=== PATIENT | male | born 1985 | race African-American/Black ===

== ENCOUNTER 2016-06-21 06:21 | Emergency (ER) | payer OTHER ==
[2016-06-21 07:05] VITALS: BP 120/75; PULSE 71; TEMP 98.1; BMI 26.3
[2016-06-21] MEDS ORDERED: DIPHTH,PERTUSS(ACELL),TET VAC 0.5 ML VIAL IM ONE (07:20)
--- NOTE | 2016-06-21 07:51 | PDOC ---
History of Present Illness - General Chief Complaint: Eye Problem Stated Complaint: EYE INJURY Time Seen by Provider: 06/21/16 07:08 History Source: Patient Exam Limitations: No Limitations - History of Present Illness Initial Comments: 06/21/16 07:48 31y M presenting with facial wound. The patient opened the medicine cabinet while he was leaning forward and the corner caught him in the L face under hte L eye just prior to presentation. no vision changes, eye pain. pt also notes a superficial wound on his right palm that got caught on a sharp end of a towel bar when he reached out after being strcuk by the medicine cabinet. unknown lsat tetanus Past History - Past Medical History Allergies/Adverse Reactions: Allergies Allergy/AdvReac Type Severity Reaction Status Date / Time No Known Allergies Allergy Verified 06/21/16 07:05 Home Medications: Ambulatory Orders NK [No Known Home Medication] 01/22/15 Other medical history: Denies - Immunization History Immunization Up to Date: No - Psycho/Social/Smoking Cessation Hx Suicidal Ideation: No Smoking History: Current some day smoker Have you smoked in the past 12 months: No Number of Cigarettes Smoked Daily: 1 Information on smoking cessation initiated: No Hx Alcohol Use: No Drug/Substance Use Hx: No Substance Use Type: None Review of Systems - Review of Systems Able to Perform ROS?: Yes Comments:: 06/21/16 07:50 Constitutional - no reported Fever, Chills, weakness, skin - +laceratoin no reported bruising, erythema, rash *Physical Exam - Vital Signs Last Vital Signs Temp Pulse Resp BP Pulse Ox 98.1 F 71 16 120/75 97 06/21/16 07:01 06/21/16 07:01 06/21/16 07:01 06/21/16 07:01 06/21/16 07:01 - Physical Exam Comments: 06/21/16 07:50 GENERAL: The patient is awake, alert, and fully oriented, Nontoxic - in no acute distress. HEAD: Normocephalic, atraumatic. EYES: extraocular movements intact, sclera anicteric, conjunctiva clear. normal vision SKIN: +1cm laceration under his L eye, non gaping, no active bleeding Exttremity: 2cm curvilinear superficial abrasion on his R palm, no active bleeding, n/v intact Procedures - Consent Consent obtained: Verbal - Laceration/Wound Repair Left Face Wound Length: to 2.5 cm Wound Explored: clean Wound's Depth, Shape: superficial Wound Repaired With: Dermabond Right Volar Hand Wound Length: to 2.5 cm Wound Explored: clean Wound's Depth, Shape: superficial Irrigated w/ Saline: Yes Wound Repaired With: Dermabond ED Treatment Course - Medications Given in the ED: ED Medications Discontinued Medications Generic Name Dose Route Start Last Admin Trade Name Tatyana PRN Reason Stop Dose Admin Diphtheria/Tetanus/Acell Pertussis 0.5 ml 06/21/16 07:20 06/21/16 07:40 Adacel Adolescent/Adult - IM 06/21/16 07:21 0.5 ml .ONCE ONE Administration *DC/Admit/Observation/Transfer Diagnosis at time of Disposition: Laceration of face Qualifiers: Encounter type: initial encounter Qualified Code(s): S01.81XA - Laceration without foreign body of other part of head, initial encounter - Discharge Dispostion Disposition: HOME Condition at time of disposition: Improved Admit: No - Referrals Referrals: [facility] [Provider Group] - Patient Instructions Printed Discharge Instructions: DI for Minor Laceration Additional Instructions: Return to the emergency department immediately with ANY new, persistent or worsening symptoms including any redness, bleeding, purulent discharge, swelling or other concerns. You may clean gently with soap and water. Keep the area away from the sun for the next 9 months, please use sunscreen and wear a hat if you need to be in the sun to improve appearance of the scar. You MUST call and follow up with your doctor tomorrow for further evaluation of your symptoms. Results were discussed with you. Please make sure your doctor reviews the results of your emergency evaluation. Print Language: PERSIAN
== END 2016-06-21 07:57 | disposition home or self-care (01) ==
LOC: JER 06:21 → SUPCPDRO 06:21 → JER 07:57
PROC: 0HQ1XZZ Repair Face Skin, External Approach (ICD-10-PCS; principal; 2016-06-21)
PROC: 0HQFXZZ Repair Right Hand Skin, External Approach (ICD-10-PCS; 2016-06-21)
PROC: 3E0234Z Introduction of Serum, Toxoid and Vaccine into Muscle, Percutaneous Approach (ICD-10-PCS; 2016-06-21)
DX: S01.81XA Laceration without foreign body of other part of head, initial encounter (principal); S61.411A Laceration without foreign body of right hand, initial encounter; W22.03XA Walked into furniture, initial encounter; Y93.9 Activity, unspecified; Y92.009 Unspecified place in unspecified non-institutional (private) residence as the place of occurrence of the external cause
CPT/HCPCS: 12001-25; 12011-25; 90471; 99282-25

== ENCOUNTER 2016-10-24 08:35 | Emergency (ER) | payer SELFPAY ==
[2016-10-24 08:48] VITALS: BP 144/93; PULSE 117; TEMP 97.7; BMI 27.2
--- NOTE | 2016-10-24 09:02 | PDOC ---
History of Present Illness - General Chief Complaint: Penile Drainage Stated Complaint: GENITAL DISCOMFORT Time Seen by Provider: 10/24/16 09:01 History Source: Patient Exam Limitations: No Limitations - History of Present Illness Initial Comments: 10/24/16 09:26 My Chief complaint: White discharge penile 3 days tinging sensation History of present illness: Patient is a 31-year-old male with no significant medical history here today complaining of white penile discharge 3 days with a stinging sensation at penis. Patient reports having unprotected sex twice in the last month with 2 different individuals and also had sex with 2 other individuals using condoms. Patient denies any testicular pain. Patient denies having any lesions on his penis. Patient is circumcised. 10/24/16 09:31 Timing/Duration: intermittent Severity: mild Associated Symptoms: reports: other (white discharge penis for 3 days with stinging sensation) Past History - Past Medical History Allergies/Adverse Reactions: Allergies Allergy/AdvReac Type Severity Reaction Status Date / Time No Known Allergies Allergy Verified 10/24/16 08:48 Home Medications: Ambulatory Orders Nitrofurantoin Monohyd/M-Cryst [Macrobid -] 100 mg PO BID #14 capsule 10/24/16 Other medical history: NONE - Immunization History Immunization Up to Date: No - Psycho/Social/Smoking Cessation Hx Anxiety: No Suicidal Ideation: No Smoking History: Never smoked Have you smoked in the past 12 months: No Number of Cigarettes Smoked Daily: 1 Hx Alcohol Use: Yes (SOCIAL) Drug/Substance Use Hx: No Substance Use Type: Marijuana Review of Systems - Review of Systems Able to Perform ROS?: Yes Constitutional: No: Symptoms Reported HEENTM: No: Symptoms Reported Respiratory: No: Symptoms reported Cardiac (ROS): No: Symptoms Reported ABD/GI: No: Symptoms Reported : Yes: Discharge (white ), Pain (stinging sensation penis ) Musculoskeletal: No: Symptoms Reported Integumentary: No: Symptoms Reported Neurological: No: Symptoms reported *Physical Exam - Vital Signs Last Vital Signs Temp Pulse Resp BP Pulse Ox 97.7 F 117 H 20 144/93 98 10/24/16 08:45 10/24/16 08:45 10/24/16 08:45 10/24/16 08:45 10/24/16 08:45 - Physical Exam General Appearance: Yes: Appropriately Dressed Respiratory/Chest: positive: Lungs Clear, Normal Breath Sounds Cardiovascular: positive: Regular Rhythm, Regular Rate, S1, S2 Male Genitalia: positive: normal genitalia, other (circumcised ). negative: discharge (not noted ), testicular tenderness, testicular mass, epididymus tender, inguinal hernia, hernia Integumentary: positive: Normal Color Medical Decision Making - Medical Decision Making 10/24/16 09:28 Patient is a 31-year-old male with no significant medical history here today complaining of white penile discharge 3 days with a stinging sensation at penis. Patient reports having unprotected sex twice in the last month with 2 different individuals and also had sex with 2 other individuals using condoms. Patient denies any testicular pain. Patient denies having any lesions on his penis. Patient is circumcised. Unprotected sex white penile discharge with stinging sensation R/O STD UTI PLAN: urinalysis chlamydia/ GC amplification HIV 1 & 2 oraquick 4 th generation urine C & S Rocephin 250 mg IM now azithromycin 1 GM now 10/24/16 09:31 10/24/16 10:18 Laboratory Tests 10/24/16 09:04 Urine Color Ltyellow Urine Appearance Clear Urine pH 5.0 Urine Protein Negative Urine Glucose (UA) Negative Urine Ketones Negative Urine Blood 1+ H Urine Nitrite Negative Urine Bilirubin Negative Urine Urobilinogen Negative Ur Leukocyte Esterase 2+ H 10/24/16 10:37 Laboratory Tests Laboratory Tests 10/24/16 09:30 HIV 1&2 Antibody Screen Negative HIV P24 Antigen Negative 10/24/16 09:04 Urine RBC 1 Urine WBC 76 Urine Mucus Rare will treat for UTI with macrobid 100 mg bid for 7 days 10/24/16 10:41 *DC/Admit/Observation/Transfer Diagnosis at time of Disposition: Unprotected sexual intercourse Urinary tract infection Qualifiers: Urinary tract infection type: acute cystitis Hematuria presence: with hematuria Qualified Code(s): N30.01 - Acute cystitis with hematuria - Discharge Dispostion Disposition: HOME - Prescriptions Prescriptions: Nitrofurantoin Monohyd/M-Cryst [Macrobid -] 100 mg PO BID #14 capsule - Patient Instructions Additional Instructions: Refrain from sexual activities for 2 weeks and always use a condom ' Follow-up with your primary care provider for repeat urine testing Drink a lot a fluids Return to emergency room if symptoms worsen or new symptoms develop patient voiced understanding of discharge instructions and all questions were answered
[2016-10-24] MEDS ORDERED: AZITHROMYCIN 1 GM PACKET PO ONE (09:32)
[2016-10-24 09:42] LABS: URINE APPEARANCE CLEAR; URINE BILIRUBIN NEGATIVE (NEGATIVE); URINE BLOOD 1+ (NEGATIVE); URINE COLOR LTYELLOW; URINE GLUCOSE (UA) NEGATIVE (NEGATIVE); URINE KETONE NEGATIVE (NEGATIVE); URINE NITRITE NEGATIVE (NEGATIVE); URINE PROTEIN NEGATIVE (NEGATIVE); URINE UROBILINOGEN NEGATIVE mg/dL (0.2-1.0)
[2016-10-24] MEDS ORDERED: AZITHROMYCIN 1 GM PACKET ONE (09:51)
[2016-10-24 09:52] LABS: URINE LEUK ESTERASE 2+ (NEGATIVE)
[2016-10-24 10:33] LABS: URINE MUCUS RARE; URINE RBC 1 /hpf (0-3); URINE WBC 76 /hpf (3-5)
[2016-10-24 10:39] LABS: HIV 1 & 2 AB NEGATIVE; HIV 1 AGp24 NEGATIVE
== END 2016-10-24 10:51 | disposition home or self-care (01) ==
LOC: JERFT 08:35
DX: N30.01 Acute cystitis with hematuria (principal)
CPT/HCPCS: 36415; 81003; 81015; 86593; 87086; 87389; 87491; 87591; 99281-25

== ENCOUNTER 2017-10-31 17:44 | Inpatient (IN) | payer OTHER ==
[2017-10-31] MEDS ORDERED: SODIUM CHLORIDE 1,000 ML IV ONE (18:07)
--- NOTE | 2017-10-31 18:10 | PDOC ---
Attending Attestation - Resident Resident Name: Ana M Irwin - ED Attending Attestation I have performed the following: I have examined & evaluated the patient, The case was reviewed & discussed with the resident, I agree w/resident's findings & plan, Exceptions are as noted - HPI HPI: 10/31/17 18:10 32y M no known pmhx presenst with AMS, was having diarrhea for a few days - found by mom to be altered in his bed with his pants lowered. when ems arrived, vitals were wnl, pt was diaphoretic/warm to the touch. on arrival, pt is idaphoretic, answers questions appropriatel but is slow to answer. Per family, he was at a bbq on and has been having profuse diarrhea for the past few days, and for the past 2 days he has been extremely weak, unable to stand up , and sometomes soiling himself. limited history from patient himself, mostly provided by family and EMS. pt is able to answer some simple/directed questions admits to smoking marijuana a few days ago with friends, deneis any other drug use notes none of his friends as far as he is aware are sick no recent travel ddx wide - includes but not limtied to - HUS, uremia, metabolic derangement, dka , dehydration, infections including uti, pna, consider meningitis will ck ct head will gifve fluids tylenol for fluids sepsis orderset obtained - Physicial Exam PE: 10/31/17 20:04 GENERAL: The patient is awake, gazing out, slow to answer, diaphoretic HEAD: Normocephalic, dried blood on nare, no active bleeding EYES: pupils 3mm symmetrically reactive to light ENT: Normal voice, dry mucous membranes. NECK: Normal range of motion, supple, neg brudzinsky and kernigs LUNGS: Breath sounds equal, clear to auscultation bilaterally. No wheezes, no rhonchi, no rales. HEART: Rslightly tachy no m/r/g ABDOMEN: Soft, nontender, No guarding, no rebound.No CVA tenderness EXTREMITIES: Normal range of motion, no edema. NEUROLOGICAL: No facial assymetry, normal speech butslow to answer, moving all 4 extremities sponteneously and symmetrically PSYCH: Normal mood, normal affect. SKIN: hot to touch, moist, normal turgor - Critical Care Time Total Critical Care Time: 45 Critical Care Statement: The care of this patient involved high complexity decision making to prevent further life threatening deterioration of the patient 's condition and/or to evaluate & treat vital organ system(s) failure or risk of failure. - Medical Decision Making 10/31/17 20:15 labs noted for SALBADOR with cr of 7, k wnl lfts eevated will hydrate and admit for further management will consult renal for salbador given pts clnical presentation, (diarrhea, AMS, Uremia/salbador) high suspicion for HUS (Although no anemia, platelets at 151 --> possibly due ot volume contraction ?)- will defer antibiotics (Grade 1B recommendation for HUS) until discussion with renal. CT pending anticipate admission to ICU case signed out to Dr. Jha and evening team
[2017-10-31] MEDS ORDERED: ACETAMINOPHEN INJECTION 100 ML IVPB ONE (18:28)
[2017-10-31 18:40] LABS: BASO % 0.4 % (0-2.0); HEMATOCRIT 40.3 % (35.4-49); HEMOGLOBIN 14.3 GM/dL (11.7-16.9); LYMPH % 14.9 % (8-40); MCH 30.3 pg (25.7-33.7); MCHC 35.5 g/dl (32.0-35.9); MEAN CELL VOLUME 85.3 fl (80-96); MEAN PLT VOLUME 8.2 fl (7.5-11.1); MONO % 6.2 % (3.8-10.2); NEUT % 78.5 % (42.8-82.8); PLATELET COUNT 151 K/MM3 (134-434); RBC 4.73 M/mm3 (4.00-5.60); RDW 12.9 % (11.9-15.9); WHITE BLOOD COUNT 6.7 K/mm3 (4.0-10.0)
[2017-10-31 18:41] LABS: VENOUS PC02 26.9 mmHg (38-52); VENOUS PH 7.47 (7.32-7.42); VENOUS PO2 66.4 mmHg (28-48)
[2017-10-31] MEDS ORDERED: ACETAMINOPHEN 1000 MG/100 ML VIAL (NON FORMULARY) IVPB ONE (18:41)
[2017-10-31] MEDS ORDERED: SODIUM CHLORIDE 0.9% 1000 ML INFUS.BAG IV SCH (18:45)
[2017-10-31 18:53] LABS: INR 1.12 (0.83-1.09); PROTHROMBIN TIME (PATIENT) 12.6 SEC (9.7-13.0)
[2017-10-31 18:54] LABS: URINE APPEARANCE CLOUDY; URINE BILIRUBIN NEGATIVE (<2.0 mg/dL); URINE COLOR AMBER; URINE GLUCOSE (UA) 1+ (NEGATIVE); URINE KETONE NEGATIVE (NEGATIVE); URINE LEUK ESTERASE NEGATIVE (NEGATIVE); URINE NITRITE NEGATIVE (NEGATIVE); URINE UROBILINOGEN NEGATIVE mg/dL (0.2-1.0)
--- NOTE | 2017-10-31 18:55 | PDOC ---
History of Present Illness <Rivka Jha - Last Filed: 10/31/17 23:06> - History of Present Illness Initial Comments: Jarod Sepulveda is a 32yo man who preseneted to the ED via ambulance today due to generalized weakness and AMS. Per EMS, Mr Sepulveda has been having diarrhea for several days, and his parents called EMS after his mother found him laying on his bed acting oddly. They report normal vitals prior to arrival. Mr Sepulveda is unable to provide much of a history and is answering questions nonsensically and mumbling. When asked how he feels, he responds "fine" and responded negatively to the entire ROS including for diarrhea. On later questioning, he did state that he had 3 episodes of watery diarrhea today, denied blood or black/tarry stools. However, he stated that he could walk home. His father presented to the ED and was able to report that Mr Sepulveda went to a barbeque at work on . He has been having diarrhea since that time, and per his father has had several episodes where he was too weak to get to the bathroom and soiled himself. He has also had several falls. His father reports that Mr Sepulveda appears improved today compared to Wednesday and yesterday; previously he was not able to talk coherently at all. They called the ambulance today because both parents will be at work tomorrow and unable to care for him at home. His father reports that he does not believe that the patient uses any drugs but he is not 100% sure. He does confirm that he is otherwise healthy. <Ana M Irwin - Last Filed: 11/01/17 00:08> - General Chief Complaint: SIRS, Suspected/Possible Stated Complaint: DIARRHEA/WEAKNESS Time Seen by Provider: 10/31/17 18:05 Past History <Rivka Jha - Last Filed: 10/31/17 23:06> - Immunization History Immunization Up to Date: No - Suicide/Smoking/Psychosocial Hx Smoking History: Never smoked Have you smoked in the past 12 months: No Number of Cigarettes Smoked Daily: 1 Hx Alcohol Use: Yes (SOCIAL) Drug/Substance Use Hx: No Substance Use Type: Marijuana <Ana M Irwin - Last Filed: 11/01/17 00:08> - Past Medical History Allergies/Adverse Reactions: Allergies Allergy/AdvReac Type Severity Reaction Status Date / Time No Known Allergies Allergy Verified 10/31/17 18:06 Home Medications: Ambulatory Orders NK [No Known Home Medication] 10/31/17 Review of Systems - Review of Systems Comments:: Could not obtain accurate ROS. Denied all symptoms - No headache, no chills, no fevers - No change in vision, no neck pain - No chest pain, no SOB - No nausea, no vomiting, no diarrhea, no melena - No injury, no muscle aches - No dysuria, no hematuria - No numbness or weakness <Ana M Irwin - Last Filed: 11/01/17 00:08> *Physical Exam - Vital Signs Last Vital Signs Temp Pulse Resp BP Pulse Ox 102.6 F H 104 H 20 130/80 100 10/31/17 18:15 10/31/17 18:00 10/31/17 18:00 10/31/17 18:00 10/31/17 18:45 <Rivka Jha - Last Filed: 10/31/17 23:06> - Physical Exam Comments: General: Appears ill. Mumbling and incoherent. Grossly diaphoretic HEENT: Dry MM, voice normal, normal neck ROM Cards: Tachycardic, no murmur noted Pulm: Comfortable on room air, clear to auscultation bilaterally Abd: Soft, nontender, nondistended : No CVA tenderness Ext: Atraumatic. No LE edema. Strength 3/5 in BLE Vasc: Extremities WWP. Skin: No rash or lesions noted Neuro: Lethargic. Oriented to self and location. Answers to questions incoherent or unintelligable. Will answer yes or no to direct questions. <Ana M Irwin - Last Filed: 11/01/17 00:08> Procedures - Lumbar Puncture Indication: AMS CT Scan: Yes (No abnormalities) Betadine Prep: Yes Position: Right lateral decubitus Site: L4-L51 Local Anesthesia: 2% Lidocaine w/ epi Volume(ml): 14 Lumbar Puncture Kit: Adult Traumatic Tap: Yes (Two attempts) Tubes Obtained: 4 Clear Fluid: Yes Complications: No <Ana M Irwin - Last Filed: 11/01/17 00:08> ED Treatment Course - LABORATORY CBC & Chemistry Diagram: 10/31/17 18:20 10/31/17 18:20 - ADDITIONAL ORDERS Additional order review: Laboratory Results 10/31/17 10/31/17 10/31/17 21:21 21:21 18:30 PT with INR INR PTT (Actin FS) VBG pH POC VBG pCO2 POC VBG pO2 Mixed VBG HCO3 Sodium Potassium Chloride Carbon Dioxide Anion Gap BUN Creatinine Creat Clearance w eGFR Random Glucose Lactic Acid 0.9 Calcium Total Bilirubin AST ALT Alkaline Phosphatase Ammonia 32.89 H Troponin I Total Protein Albumin Urine Color Urine Appearance Urine pH Ur Specific [place] Urine Protein Urine Glucose (UA) Urine Ketones Urine Blood Urine Nitrite Urine Bilirubin Urine Urobilinogen Ur Leukocyte Esterase Urine WBC (Auto) Urine RBC (Auto) Urine Bacteria Opiates Screen Negative Methadone Screen Negative Barbiturate Screen Negative Phencyclidine Screen Negative Ur Amphetamines Screen Negative MDMA (Ecstasy) Screen Negative Benzodiazepines Screen Negative Cocaine Screen Negative U Marijuana (THC) Screen Positive 10/31/17 10/31/17 10/31/17 18:30 18:20 18:20 PT with INR INR PTT (Actin FS) VBG pH POC VBG pCO2 POC VBG pO2 Mixed VBG HCO3 Sodium Potassium Chloride Carbon Dioxide Anion Gap BUN Creatinine Creat Clearance w eGFR Random Glucose Lactic Acid 1.4 Calcium Total Bilirubin AST ALT Alkaline Phosphatase Ammonia Troponin I 0.12 H Total Protein Albumin Urine Color Carolyne Urine Appearance Cloudy Urine pH 5.0 Ur Specific [place] 1.014 Urine Protein 2+ H Urine Glucose (UA) 1+ H Urine Ketones Negative Urine Blood 3+ H Urine Nitrite Negative Urine Bilirubin Negative Urine Urobilinogen Negative Ur Leukocyte Esterase Negative Urine WBC (Auto) 4 Urine RBC (Auto) 5 Urine Bacteria Moderate Opiates Screen Methadone Screen Barbiturate Screen Phencyclidine Screen Ur Amphetamines Screen MDMA (Ecstasy) Screen Benzodiazepines Screen Cocaine Screen U Marijuana (THC) Screen 10/31/17 10/31/17 10/31/17 18:20 18:20 18:20 PT with INR 12.60 INR 1.12 H PTT (Actin FS) 38.4 H VBG pH 7.47 H POC VBG pCO2 26.9 L POC VBG pO2 66.4 H Mixed VBG HCO3 19.2 Sodium 131 L Potassium 3.2 L Chloride 95 L Carbon Dioxide 21 Anion Gap 15 BUN 58 H Creatinine 7.5 H Creat Clearance w eGFR 8.52 Random Glucose 128 H Lactic Acid Calcium 8.0 L Total Bilirubin 2.1 H AST 476 H ALT 295 H Alkaline Phosphatase 81 Ammonia Troponin I Total Protein 7.0 Albumin 2.9 L Urine Color Urine Appearance Urine pH Ur Specific [place] Urine Protein Urine Glucose (UA) Urine Ketones Urine Blood Urine Nitrite Urine Bilirubin Urine Urobilinogen Ur Leukocyte Esterase Urine WBC (Auto) Urine RBC (Auto) Urine Bacteria Opiates Screen Methadone Screen Barbiturate Screen Phencyclidine Screen Ur Amphetamines Screen MDMA (Ecstasy) Screen Benzodiazepines Screen Cocaine Screen U Marijuana (THC) Screen 10/31/17 18:20 RBC 4.73 MCV 85.3 MCHC 35.5 RDW 12.9 MPV 8.2 Neutrophils % 78.5 Lymphocytes % 14.9 Monocytes % 6.2 Eosinophils % 0.0 Basophils % 0.4 - Medications Given in the ED: ED Medications Discontinued Medications Generic Name Dose Route Start Last Admin Trade Name Freq PRN Reason Stop Dose Admin Acetaminophen 1,000 mg 10/31/17 18:41 10/31/17 18:43 Ofirmev Injection - IVPB 10/31/17 18:42 1,000 mg ONCE ONE Administration Sodium Chloride 1,000 mls @ 1,000 mls/hr 10/31/17 18:07 10/31/17 18:34 Normal Saline - IV 10/31/17 19:06 1,000 mls/hr .Q1H ONE Administration Metronidazole 500 mg in 100 mls @ 100 mls/hr 10/31/17 20:58 10/31/17 22:30 Flagyl 500mg Premixed Ivpb - IVPB 10/31/17 21:57 100 mls/hr ONCE ONE Administration Piperacillin Sod/Tazobactam 100 mls @ 200 mls/hr 10/31/17 20:58 10/31/17 21: 55 Sod 4.5 gm/ Dextrose IVPB 10/31/17 21:27 200 mls/hr ONCE ONE Administration Protocol Lidocaine HCl 10 mg 10/31/17 21:52 10/31/17 22:30 Xylocaine 2% SQ 10/31/17 21:53 10 mg ONCE ONE Administration <Rivka Jha - Last Filed: 10/31/17 23:06> - LABORATORY CBC & Chemistry Diagram: 10/31/17 18:20 10/31/17 18:20 <Ana M Irwin - Last Filed: 11/01/17 00:08> Medical Decision Making - Medical Decision Making 10/31/17 19:15 Jarod Sepulveda is a 32yo man with no known medical history who presents today with fever, lethargy, weakness, and diarrhea since . - Given fever, recent diarrhea, diaphoresis, AMS strongly suspect infection. Full sepsis workup pending - CBC, chemistries, coags, trop, cultures, UA, UCx, EKG, CXR - Father reports falls this weekend, has dried blood around nose. non-contrast CT head ordered to evaluate for trauma - No known history of drug use, but could explain symptoms. Urine tox pending - 30cc/kg NS bolus ordered - 1g IV tylenol for fever 10/31/17 20:59 - Labs returned. CBC relatively normal, WBC not elevated - UA with bacteria, blood, protein. - CMP with significantly elevated LFTs and BUN/Cr. - BUN 58, Cr 7.5. Discussed with Dr Edmondson. Recommends checking haptoglobin to r/o HUS, but does not think likely given normal hgb, also says kidney function would likely be worse. BUN is not high enough to account for AMS and does not require urgent intervention. Recommends giving 3-4L total fluids in first 24hrs, strict I/O via hernandez, Q6 BMP, haptoglobin. Hernandez placed in ED. AST 475, ALT 295, tbili 2.1, alkphos 81. Checking ammonia level, giving lactulose. Page placed to GI. - UDS negative except for marijuana - Vanc, zosyn, flagyl started given fever to 102, tachycardia, diarrhea, bacteria in urine - Will admit to ICU. Discussed with ICU resident 10/31/17 23:45 - LP completed with Dr Jha. Two attempts, minimally traumatic tap. CSF sent for profile, cell counts, culture. Informed ICU team. Discussed with ID; will call to update w/ results and for additional recommendations. - Mr Sepulveda did not react to LP, slept through local anesthesia and entire procedure without any sedation - No response from GI; to be called by ICU team tomorrow. Patient signed out to Dr Lewis. Seen and discussed with Dr Mckinley and Dr Jha. <Ana M Irwin - Last Filed: 11/01/17 00:08> *DC/Admit/Observation/Transfer - Discharge Dispostion Decision to Admit order: Yes Decision to Admit order Date/Time: Decision to Admit Order Category Date Time Status Decision to Admit to Hospital Routine Admission 10/31/17 20:26 Active <Rivka Jha - Last Filed: 10/31/17 23:06> - Discharge Dispostion Decision to Admit order: Yes <Ana M Irwin - Last Filed: 11/01/17 00:08> Diagnosis at time of Disposition: Elevated LFTs Altered mental status Qualifiers: Altered mental status type: disorientation Qualified Code(s): R41.0 - Disorientation, unspecified Fever Qualifiers: Fever type: unspecified Qualified Code(s): R50.9 - Fever, unspecified Acute kidney failure Qualifiers: Acute renal failure type: unspecified Qualified Code(s): N17.9 - Acute kidney failure, unspecified - Discharge Dispostion Condition at time of disposition: Critical
[2017-10-31 18:56] LABS: ACTIVATED PTT 38.4 SECONDS (25.2-36.5)
[2017-10-31 18:57] LABS: URINE PROTEIN 2+ (NEGATIVE)
[2017-10-31 18:59] LABS: URINE BACTERIA MODERATE /hpf (NONE SEEN)
[2017-10-31 19:03] LABS: COCAINE, UR NEGATIVE ng/ml (CUTOFF=300); METHADONE, UR NEGATIVE ng/ml (CUTOFF=300); OPIATES, URI NEGATIVE ng/ml (CUTOFF=300); PHENCYCLIDINE,URINE NEGATIVE ng/ml (CUTOFF=25); URINE AMPHETAMINES NEGATIVE ng/ml (CUTOFF=500); URINE BARBITURATES NEGATIVE ng/ml (CUTOFF=200); URINE BENZODIAZEPINES NEGATIVE ng/ml (CUTOFF=200)
--- NOTE | 2017-10-31 19:24 | PDOC ---
*Physical Exam - Vital Signs Last Vital Signs Temp Pulse Resp BP Pulse Ox 102.6 F H 104 H 20 130/80 100 10/31/17 18:15 10/31/17 18:00 10/31/17 18:00 10/31/17 18:00 10/31/17 18:45 ED Treatment Course - LABORATORY CBC & Chemistry Diagram: 10/31/17 18:20 10/31/17 18:20 - ADDITIONAL ORDERS Additional order review: Laboratory Results 10/31/17 10/31/17 10/31/17 18:30 18:30 18:20 PT with INR INR PTT (Actin FS) VBG pH POC VBG pCO2 POC VBG pO2 Mixed VBG HCO3 Lactic Acid 1.4 Urine Color Carolyne Urine Appearance Cloudy Urine pH 5.0 Ur Specific [place] 1.014 Urine Protein 2+ H Urine Glucose (UA) 1+ H Urine Ketones Negative Urine Blood 3+ H Urine Nitrite Negative Urine Bilirubin Negative Urine Urobilinogen Negative Ur Leukocyte Esterase Negative Urine WBC (Auto) 4 Urine RBC (Auto) 5 Urine Bacteria Moderate Opiates Screen Negative Methadone Screen Negative Barbiturate Screen Negative Phencyclidine Screen Negative Ur Amphetamines Screen Negative MDMA (Ecstasy) Screen Negative Benzodiazepines Screen Negative Cocaine Screen Negative U Marijuana (THC) Screen Positive 10/31/17 10/31/17 18:20 18:20 PT with INR 12.60 INR 1.12 H PTT (Actin FS) 38.4 H VBG pH 7.47 H POC VBG pCO2 26.9 L POC VBG pO2 66.4 H Mixed VBG HCO3 19.2 Lactic Acid Urine Color Urine Appearance Urine pH Ur Specific [place] Urine Protein Urine Glucose (UA) Urine Ketones Urine Blood Urine Nitrite Urine Bilirubin Urine Urobilinogen Ur Leukocyte Esterase Urine WBC (Auto) Urine RBC (Auto) Urine Bacteria Opiates Screen Methadone Screen Barbiturate Screen Phencyclidine Screen Ur Amphetamines Screen MDMA (Ecstasy) Screen Benzodiazepines Screen Cocaine Screen U Marijuana (THC) Screen 10/31/17 18:20 RBC 4.73 MCV 85.3 MCHC 35.5 RDW 12.9 MPV 8.2 Neutrophils % 78.5 Lymphocytes % 14.9 Monocytes % 6.2 Eosinophils % 0.0 Basophils % 0.4 - Medications Given in the ED: ED Medications Discontinued Medications Generic Name Dose Route Start Last Admin Trade Name Freq PRN Reason Stop Dose Admin Acetaminophen 1,000 mg 10/31/17 18:41 10/31/17 18:43 Ofirmev Injection - IVPB 10/31/17 18:42 1,000 mg ONCE ONE Administration Sodium Chloride 1,000 mls @ 1,000 mls/hr 10/31/17 18:07 10/31/17 18:34 Normal Saline - IV 10/31/17 19:06 1,000 mls/hr .Q1H ONE Administration Medical Decision Making - Medical Decision Making 10/31/17 21:05 Patient Name: ENEIDA CUMMINS THIS IS A PRELIMINARY REPORT FROM [facility] DATE OF SERVICE: 2017-10-31 19:50:07 IMAGES: 156 EXAM: CT head without contrast HISTORY: Altered mental status COMPARISON: None. FINDINGS: 1. The study is somewhat degraded by artifact created by technique with imaging the patient without using a housekeeper head. 2. There is no definite evidence of an acute intracranial process and no evidence of intracranial hemorrhage or significant mass effect. 3. The ventricles are normal size. 4. The visualized portions of the orbits, paranasal and mastoid sinuses are unremarkable. 5. The bony structures are unremarkable appearance. If there is a clinical suspicion of an acute intracranial process, MRI of the brain may be helpful for further evaluation. Individualized dose optimization techniques were used for this CT. THIS DOCUMENT HAS BEEN ELECTRONICALLY SIGNED *DC/Admit/Observation/Transfer Diagnosis at time of Disposition: Elevated LFTs Altered mental status Qualifiers: Altered mental status type: disorientation Qualified Code(s): R41.0 - Disorientation, unspecified Fever Qualifiers: Fever type: unspecified Qualified Code(s): R50.9 - Fever, unspecified Acute kidney failure Qualifiers: Acute renal failure type: unspecified Qualified Code(s): N17.9 - Acute kidney failure, unspecified - Discharge Dispostion Condition at time of disposition: Critical Decision to Admit order: Yes - Referrals - Patient Instructions - Post Discharge Activity Procedures - Lumbar Puncture Indication: AMS, Fever, other CT Scan: Yes Betadine Prep: Yes Position: Right lateral decubitus Site: L4-L51 Local Anesthesia: 1% Lidocaine with epi Volume(ml): 2 Lumbar Puncture Kit: Adult Opening Pressure(mmHg): 29 Traumatic Tap: No Tubes Obtained: 4 Clear Fluid: Yes (slight blood in the first tube) Complications: No
[2017-10-31 19:31] LABS: ALBUMIN 2.9 g/dl (3.4-5.0); ALK PHOS 81 U/L (45-117); ANION GAP 15 (8-16); BILIRUBIN,TOTAL 2.1 mg/dL (0.2-1.0); BLOOD UREA NITROGEN 58 mg/dL (7-18); CHLORIDE 95 mmol/L (98-107); CO2 21 mmol/L (21-32); CREATININE 7.5 mg/dL (0.7-1.3); GLUCOSE,RANDOM 128 mg/dL (74-106); POTASSIUM 3.2 mmol/L (3.5-5.1); SGPT/ALT 295 U/L (12-78); SODIUM 131 mmol/L (136-145)
[2017-10-31 19:36] LABS: SGOT/AST 476 U/L (15-37)
--- NOTE | 2017-10-31 20:41 | PN ---
Teaching Attending Note Name of Resident: Lucas Claros ATTENDING PHYSICIAN STATEMENT I saw and evaluated the patient. I reviewed the resident's note and discussed the case with the resident. I agree with the resident's findings and plan as documented. SUBJECTIVE: Patient is a 32 year old man who presented to the ER via ambulance today due to generalized weakness and AMS. Per EMS, Mr Sepulveda has been having diarrhea for several days, and his parents called EMS after his mother found him laying on his bed acting oddly. They report normal vitals prior to arrival. Patient confused on arrival and unable to answer questions coherently. His father says patient went to a barbeque at work on . He has been having diarrhea since that time, and has had several episodes where he was too weak to get to the bathroom and soiled himself. He has also had several falls. His father reports that Mr Sepulveda appears improved today compared to Wednesday and yesterday; previously he was not able to talk coherently at all. Urine toxicology revealed marijuana. OBJECTIVE: Lethargic Vital Signs Period Temp Pulse Resp BP Sys/Dangelo Pulse Ox Last 24 Hr 101 F-102.6 F 103-104 20-22 120-130/75-80 96-100 HEENT: No Jaundice, eye redness or discharge, PERRLA, Normocephalic, atraumatic. External ears are normal. Dry blood in both nostrils. Neck: Supple, nontender. No palpable adenopathy or thyromegaly. No JVD Chest: Good effort. Clear to auscultation and percussion. Heart: Regular. No S3, rub or murmur Abdomen: Not distended, soft, nontender and no HSM. No rebound or guarding. Normoactive bowel sounds. Ext: Peripheral pulses intact. No leg edema. Skin: Warm and dry. No petechiae, rash or ecchymosis. Neuro: Lethargic. Current Medications Generic Name Dose Route Start Last Admin Trade Name Freq PRN Reason Stop Dose Admin Sodium Chloride 1,585 ml 10/31/17 18:45 10/31/17 20:15 Normal Saline - IV 1,585 ml ONCE ODILIA Administration Home Medications Medication Instructions Recorded NK [No Known Home Medication] 10/31/17 Abnormal Lab Results 10/31/17 10/31/17 10/31/17 18:20 18:20 18:20 INR 1.12 H PTT (Actin FS) 38.4 H VBG pH 7.47 H POC VBG pCO2 26.9 L POC VBG pO2 66.4 H Sodium 131 L Potassium 3.2 L Chloride 95 L BUN 58 H Creatinine 7.5 H Random Glucose 128 H Calcium 8.0 L Total Bilirubin 2.1 H AST 476 H ALT 295 H Troponin I Albumin 2.9 L Urine Protein Urine Glucose (UA) Urine Blood 10/31/17 10/31/17 18:20 18:30 INR PTT (Actin FS) VBG pH POC VBG pCO2 POC VBG pO2 Sodium Potassium Chloride BUN Creatinine Random Glucose Calcium Total Bilirubin AST ALT Troponin I 0.12 H Albumin Urine Protein 2+ H Urine Glucose (UA) 1+ H Urine Blood 3+ H ASSESSMENT AND PLAN: 1. Altered Mental Status with fever - Etiology is unclear but he needs a lumbar puncture STAT to rule out meningitis. It is plausible that he ingested a "toxin " that is causing hepatic and renal damage, but urine toxicology shows only marijuana. While it is possible that low platelets and anemia are yet to emerge , he does not have the mcwilliams features of thrombotic microangiopathy at this time - though ingestion of undercooked meat at the [facility] is note worthy. Uremia due to acute renal failure is a likely contributor to his altered mentation. Sepsis work up has been done and he has gotten IV vancomycin and zosyn in the ER. Pending lumbar puncture, we will give Rocephin 2 gm IV stat. If meningitis is ruled out, will switch to IV cipro and flagyl to target GI pathogens like shigella and E.coli. Continue IV NS at 125 ml/hour while replacing K - monitor urine output with hernandez. He has elevated LFTs - Will get RUQ sonogram (too unstable to got for CT scan), treat with mannitol since cerebral edema may complicate hepatic encephalopathy in acute hepatic necrosis. Will place an NGT and commence lactulose and rifaximin. Trend LFTs. Low K likely due to diarrheal losses. Will give IV KCL. Renal consult pending for possible hemodialysis for ARF. Elevated troponin likely due to ARF. No EKG changes of ACS - will repeat EKG and troponin to rule out ACS. Will send stool for analyses and culture, blood for complement C3, C4 and CH50, ADAMSTS 13 activity, HIV testing, haptoglobin, fibrinogen, FDP,cryptococcal antigen, hepatitis serology, magnesium and phosphate. Consult nephrology, hematology, neurology and ID. 2. DVT prophylaxis - Heparin 5000u sq tid. 3. Advance directives - Full code
[2017-10-31] MEDS ORDERED: VANCOMYCIN 1,500 MG in DEXTROSE 5%-WATER - 500 ML IVPB ONE (20:58)
[2017-10-31] MEDS ORDERED: PIPERACILLIN/TAZOB 4.5 GM 4.5 GM in DEXTROSE 5%-WATER 100 ML IVPB ONE (20:58)
[2017-10-31] MEDS ORDERED: PIPERACILLIN/TAZOB 4.5 GM 4.5 GM/100 ML BAG IVPB ONE (21:40)
[2017-10-31] MEDS ORDERED: LIDOCAINE HCL 2% (50ML VIAL) SQ ONE (21:52)
[2017-10-31] MEDS ORDERED: LIDOCAINE HCL 2% (20ML MULTI-DOSE VIAL) NR ONE (21:53)
--- NOTE | 2017-10-31 22:08 | HP ---
CHIEF COMPLAINT: Diarrhea, weakned, AMS PCP: HISTORY OF PRESENT ILLNESS: Pt unarousable when I saw him, so chart reviewed and case discussed with ER resident. Pt apparently was at a BBQ 3 days ago and has been complaining of watery diarrhea since. Father not present when I was there but told the ED that he has had altered mental status, weakness, and even some falls over the last few days. ER course was notable for: (1) 4 L NS (2) Febrile 102.6 (3) AST/ALT elevation, BUN/Cr 58/7.5, UA: 2+prot, 3+blood, 5 RBC's (4) CT negative for acute bleed or signs of ICP, spinal tap requested Recent Travel: none PAST MEDICAL HISTORY: none PAST SURGICAL HISTORY: none known Social History: Smoking: rare Alcohol: occasional/social Drugs: marijuana Family History: Allergies No Known Allergies Allergy (Verified 10/31/17 18:06) HOME MEDICATIONS: Home Medications Medication Instructions Recorded NK [No Known Home Medication] 10/31/17 REVIEW OF SYSTEMS Unable to obtain PHYSICAL EXAMINATION Vital Signs - 24 hr 10/31/17 10/31/17 10/31/17 18:00 18:15 18:45 Temperature 102.6 F H 102.6 F H Pulse Rate 103 H Pulse Rate [ 104 H Apical] Respiratory 20 Rate Blood Pressure 120/75 Blood Pressure 130/80 [Left Arm] O2 Sat by Pulse 99 100 Oximetry (%) GENERAL: Unarousable to voice or pain HEAD: Normal with no signs of trauma. EYES: PERRL, sclera anicteric EARS, NOSE, THROAT: nares patent with minimal dried blood, oropharynx clear without exudates. Moist mucous membranes. NECK: supple without lymphadenopathy, minimal JVD noted LUNGS: Some mild wheezing, no crackles noted HEART: Regular rate and rythm, no murmurs noted ABDOMEN: Soft, obese, no masses or organomegaly noted, UPPER EXTREMITIES: 2+ pulses, warm, well-perfused. No cyanosis. No clubbing. No peripheral edema. LOWER EXTREMITIES: 2+ pulses, warm, well-perfused. No calf tenderness. No peripheral edema. NEUROLOGICAL: Unarousable and unable to cooperate with neuro exam, SKIN: Warm, dry, normal turgor, no rashes or lesions noted, normal capillary refill. Laboratory Results - last 24 hr 08/08/1310/31/17 10/31/17 18:20 18:20 18:20 WBC 6.7 RBC 4.73 Hgb 14.3 Hct 40.3 MCV 85.3 MCH 30.3 MCHC 35.5 RDW 12.9 Plt Count 151 MPV 8.2 Absolute Neuts (auto) 5.3 Neutrophils % 78.5 Lymphocytes % 14.9 Monocytes % 6.2 Eosinophils % 0.0 Basophils % 0.4 Nucleated RBC % 0 PT with INR 12.60 INR 1.12 H PTT (Actin FS) 38.4 H VBG pH 7.47 H POC VBG pCO2 26.9 L POC VBG pO2 66.4 H Mixed VBG HCO3 19.2 Sodium Potassium Chloride Carbon Dioxide Anion Gap BUN Creatinine Creat Clearance w eGFR Random Glucose Lactic Acid Calcium Total Bilirubin AST ALT Alkaline Phosphatase Ammonia Troponin I Total Protein Albumin Urine Color Urine Appearance Urine pH Ur Specific [place] Urine Protein Urine Glucose (UA) Urine Ketones Urine Blood Urine Nitrite Urine Bilirubin Urine Urobilinogen Ur Leukocyte Esterase Urine WBC (Auto) Urine RBC (Auto) Urine Bacteria Opiates Screen Methadone Screen Barbiturate Screen Phencyclidine Screen Ur Amphetamines Screen MDMA (Ecstasy) Screen Benzodiazepines Screen Cocaine Screen U Marijuana (THC) Screen 10/31/17 10/31/17 10/31/17 18:20 18:20 18:20 WBC RBC Hgb Hct MCV MCH MCHC RDW Plt Count MPV Absolute Neuts (auto) Neutrophils % Lymphocytes % Monocytes % Eosinophils % Basophils % Nucleated RBC % PT with INR INR PTT (Actin FS) VBG pH POC VBG pCO2 POC VBG pO2 Mixed VBG HCO3 Sodium 131 L Potassium 3.2 L Chloride 95 L Carbon Dioxide 21 Anion Gap 15 BUN 58 H Creatinine 7.5 H Creat Clearance w eGFR 8.52 Random Glucose 128 H Lactic Acid 1.4 Calcium 8.0 L Total Bilirubin 2.1 H AST 476 H ALT 295 H Alkaline Phosphatase 81 Ammonia Troponin I 0.12 H Total Protein 7.0 Albumin 2.9 L Urine Color Urine Appearance Urine pH Ur Specific [place] Urine Protein Urine Glucose (UA) Urine Ketones Urine Blood Urine Nitrite Urine Bilirubin Urine Urobilinogen Ur Leukocyte Esterase Urine WBC (Auto) Urine RBC (Auto) Urine Bacteria Opiates Screen Methadone Screen Barbiturate Screen Phencyclidine Screen Ur Amphetamines Screen MDMA (Ecstasy) Screen Benzodiazepines Screen Cocaine Screen U Marijuana (THC) Screen 10/31/17 10/31/17 10/31/17 18:30 18:30 21:21 WBC RBC Hgb Hct MCV MCH MCHC RDW Plt Count MPV Absolute Neuts (auto) Neutrophils % Lymphocytes % Monocytes % Eosinophils % Basophils % Nucleated RBC % PT with INR INR PTT (Actin FS) VBG pH POC VBG pCO2 POC VBG pO2 Mixed VBG HCO3 Sodium Potassium Chloride Carbon Dioxide Anion Gap BUN Creatinine Creat Clearance w eGFR Random Glucose Lactic Acid 0.9 Calcium Total Bilirubin AST ALT Alkaline Phosphatase Ammonia Troponin I Total Protein Albumin Urine Color Carolyne Urine Appearance Cloudy Urine pH 5.0 Ur Specific [place] 1.014 Urine Protein 2+ H Urine Glucose (UA) 1+ H Urine Ketones Negative Urine Blood 3+ H Urine Nitrite Negative Urine Bilirubin Negative Urine Urobilinogen Negative Ur Leukocyte Esterase Negative Urine WBC (Auto) 4 Urine RBC (Auto) 5 Urine Bacteria Moderate Opiates Screen Negative Methadone Screen Negative Barbiturate Screen Negative Phencyclidine Screen Negative Ur Amphetamines Screen Negative MDMA (Ecstasy) Screen Negative Benzodiazepines Screen Negative Cocaine Screen Negative U Marijuana (THC) Screen Positive 10/31/17 21:21 WBC RBC Hgb Hct MCV MCH MCHC RDW Plt Count MPV Absolute Neuts (auto) Neutrophils % Lymphocytes % Monocytes % Eosinophils % Basophils % Nucleated RBC % PT with INR INR PTT (Actin FS) VBG pH POC VBG pCO2 POC VBG pO2 Mixed VBG HCO3 Sodium Potassium Chloride Carbon Dioxide Anion Gap BUN Creatinine Creat Clearance w eGFR Random Glucose Lactic Acid Calcium Total Bilirubin AST ALT Alkaline Phosphatase Ammonia 32.89 H Troponin I Total Protein Albumin Urine Color Urine Appearance Urine pH Ur Specific [place] Urine Protein Urine Glucose (UA) Urine Ketones Urine Blood Urine Nitrite Urine Bilirubin Urine Urobilinogen Ur Leukocyte Esterase Urine WBC (Auto) Urine RBC (Auto) Urine Bacteria Opiates Screen Methadone Screen Barbiturate Screen Phencyclidine Screen Ur Amphetamines Screen MDMA (Ecstasy) Screen Benzodiazepines Screen Cocaine Screen U Marijuana (THC) Screen ASSESSMENT/PLAN: 32 yo male with no significant PMH admitted to the ICU with Sepsis secondary to bacterial colitis with some concern for early HUS, transaminitis and SALBADOR. Bacterial Colitis -ID consult appreciated, discussed case with ED resident -Given Vanc/Zosyn/Flagyl in ED -will await ID recommendations, though could possibly switch to cipro/flagyl -if Vanc/Zosyn continued, should be appropriately dosed for renal function Meningitis ? -spinal tap pending -2 gm rocephin given for coverage immediately following LP -Neuro consult appreciated Transaminitis -less likely caused by shock liver as pt has maintained bp -Father denies excess intake of Tylenol, as well as excess alcohol use -Mental status could be secondary to hepatic encephalopathy -GI Consult ordered -Hepatitis panel -NG tube insertion for Lactulose and Rifaximin -IV mannitol given in case of cerebral edema caused by hepatic encephalopathy SAL[place] -Consider early HUS vs. Rhabomyolysis -Renal consult appreciated, discussed with ED. unlikely HUS though could be early -BUN/Cr 58/7.5 -No anemia or thrombocytopenia -UA: 2+ protein, 3+ blood with minimal RBC's, 4 WBC's -Haptoglobin level ordered, ADAMTS-13, Fibrinogen, LDH, c-anca, p-anca -random urine Na, total urine protein, urine creatinine Mild troponinemia -Possibly due to demand ischemia with sepsis -ECG noted: sinus rhythm, no acute ST elevations or depressions DVT Prophylaxis -Heparin 5000 units SQ TID FEN -Fluids: 4L NS in ED, will continue fluid resuscitation -Electrolytes: Hypokalemia 3.2, repleting, repeat CMP in AM -Nutrition: NPO until mental status improves Disposition ICU Visit type - Emergency Visit Emergency Visit: Yes Care time: The patient presented to the Emergency Department on the above date and was hospitalized for further evaluation of their emergent condition. - New Patient This patient is new to me today: Yes Date on this admission: 11/01/17 - Critical Care Critical Care patient: Yes Total Critical Care Time (in minutes): 120 Critical Care Statement: The care of this patient involved high complexity decision making to prevent further life threatening deterioration of the patient 's condition and/or to evaluate & treat vital organ system(s) failure or risk of failure. Hospitalist Screening - Colonoscopy Questionnaire Colonoscopy Questionnaire: Colonoscopy Questionnaire - Patient: 50 - 75 years old and never had a screening colonoscopy: No History of colon or rectal polyps, or CA: No History of IBD, Crohn's disease or UC: No History of abdominal radiation therapy as a child: Unknown - Relative: 1 with colon or rectal CA, or polyps at age 60 or younger: Unknown Colon or rectal CA diagnosed at age 45 or younger: Unknown Multiple relatives with colon or rectal CA: Unknown - Outcome: Screening Result: Negative Screen
--- NOTE | 2017-10-31 22:45 | CONSULT ---
Consultation: REQUESTING PROVIDER: CONSULT REQUEST: We have been asked to medically evaluate this patient for ( specify). HISTORY OF PRESENT ILLNESS: History was taken from ED medical documentation. When I sawe the patient, he was lethargic and not answering any of my questions. The patient is a 32 year old male with no PMH who presented to the hospital today after he was found by his mother confused and weak. For the past 3 days, he has been having watery diarrhea after eating barbeque on at work. According to his family, he was weak and fell several times at home. On arrival to the hospital his pH was 7.47, pC02 26.9, p02 66.4. He was found to have fever 102.6 F, elevated Cr to 7.5, BUN 58, AST 476, ALT 295, INR 1.12, PTT 38.4, troponin 0.12, normal CBC. He also had CT head negative for acute pathology. The patient was admitted to ICU for monitoring. REVIEW OF SYSTEMS:N/A PHYSICAL EXAMINATION Vital Signs - 24 hr 10/31/17 10/31/17 10/31/17 18:00 18:15 18:45 Temperature 102.6 F H 102.6 F H Pulse Rate 103 H Pulse Rate [ 104 H Apical] Respiratory 20 Rate Blood Pressure 120/75 Blood Pressure 130/80 [Left Arm] O2 Sat by Pulse 99 100 Oximetry (%) GENERAL: Lethargic, not following commands. HEAD: Normal with no signs of trauma. EYES: Pupils equal, round and reactive to light, extraocular movements not assessed. EARS, NOSE, THROAT: Ears normal, nares patent, dried blood outside of his nostrils. Moist mucous membranes. NECK: Normal range of motion, supple without lymphadenopathy, JVD, or masses. LUNGS: Breath sounds equal, clear to auscultation bilaterally. No wheezes, and no crackles. No accessory muscle use. HEART: Regular rate and rhythm, normal S1 and S2 without murmur, rub or gallop. ABDOMEN: Soft, nontender, not distended, normoactive bowel sounds, no guarding, no rebound, no masses. MUSCULOSKELETAL: No bony deformities or tenderness. UPPER EXTREMITIES: No peripheral edema. LOWER EXTREMITIES: 2+ pulses, warm, no peripheral edema. NEUROLOGICAL: no focal, sensation and motor not assessed, brudzinski sign negative. SKIN: Warm, dry, normal turgor, no rashes or lesions noted. Sunshine present, diaper; no BMs since arrival to the hospital. Laboratory Results - last 24 hr 10/31/17 10/31/17 10/31/17 18:20 18:20 18:20 WBC 6.7 RBC 4.73 Hgb 14.3 Hct 40.3 MCV 85.3 MCH 30.3 MCHC 35.5 RDW 12.9 Plt Count 151 MPV 8.2 Absolute Neuts (auto) 5.3 Neutrophils % 78.5 Lymphocytes % 14.9 Monocytes % 6.2 Eosinophils % 0.0 Basophils % 0.4 Nucleated RBC % 0 PT with INR 12.60 INR 1.12 H PTT (Actin FS) 38.4 H VBG pH 7.47 H POC VBG pCO2 26.9 L POC VBG pO2 66.4 H Mixed VBG HCO3 19.2 Sodium Potassium Chloride Carbon Dioxide Anion Gap BUN Creatinine Creat Clearance w eGFR Random Glucose Lactic Acid Calcium Total Bilirubin AST ALT Alkaline Phosphatase Ammonia Troponin I Total Protein Albumin Urine Color Urine Appearance Urine pH Ur Specific [place] Urine Protein Urine Glucose (UA) Urine Ketones Urine Blood Urine Nitrite Urine Bilirubin Urine Urobilinogen Ur Leukocyte Esterase Urine WBC (Auto) Urine RBC (Auto) Urine Bacteria Opiates Screen Methadone Screen Barbiturate Screen Phencyclidine Screen Ur Amphetamines Screen MDMA (Ecstasy) Screen Benzodiazepines Screen Cocaine Screen U Marijuana (THC) Screen 10/31/17 10/31/17 10/31/17 18:20 18:20 18:20 WBC RBC Hgb Hct MCV MCH MCHC RDW Plt Count MPV Absolute Neuts (auto) Neutrophils % Lymphocytes % Monocytes % Eosinophils % Basophils % Nucleated RBC % PT with INR INR PTT (Actin FS) VBG pH POC VBG pCO2 POC VBG pO2 Mixed VBG HCO3 Sodium 131 L Potassium 3.2 L Chloride 95 L Carbon Dioxide 21 Anion Gap 15 BUN 58 H Creatinine 7.5 H Creat Clearance w eGFR 8.52 Random Glucose 128 H Lactic Acid 1.4 Calcium 8.0 L Total Bilirubin 2.1 H AST 476 H ALT 295 H Alkaline Phosphatase 81 Ammonia Troponin I 0.12 H Total Protein 7.0 Albumin 2.9 L Urine Color Urine Appearance Urine pH Ur Specific [place] Urine Protein Urine Glucose (UA) Urine Ketones Urine Blood Urine Nitrite Urine Bilirubin Urine Urobilinogen Ur Leukocyte Esterase Urine WBC (Auto) Urine RBC (Auto) Urine Bacteria Opiates Screen Methadone Screen Barbiturate Screen Phencyclidine Screen Ur Amphetamines Screen MDMA (Ecstasy) Screen Benzodiazepines Screen Cocaine Screen U Marijuana (THC) Screen 10/31/17 10/31/17 10/31/17 18:30 18:30 21:21 WBC RBC Hgb Hct MCV MCH MCHC RDW Plt Count MPV Absolute Neuts (auto) Neutrophils % Lymphocytes % Monocytes % Eosinophils % Basophils % Nucleated RBC % PT with INR INR PTT (Actin FS) VBG pH POC VBG pCO2 POC VBG pO2 Mixed VBG HCO3 Sodium Potassium Chloride Carbon Dioxide Anion Gap BUN Creatinine Creat Clearance w eGFR Random Glucose Lactic Acid 0.9 Calcium Total Bilirubin AST ALT Alkaline Phosphatase Ammonia Troponin I Total Protein Albumin Urine Color Carolyne Urine Appearance Cloudy Urine pH 5.0 Ur Specific [place] 1.014 Urine Protein 2+ H Urine Glucose (UA) 1+ H Urine Ketones Negative Urine Blood 3+ H Urine Nitrite Negative Urine Bilirubin Negative Urine Urobilinogen Negative Ur Leukocyte Esterase Negative Urine WBC (Auto) 4 Urine RBC (Auto) 5 Urine Bacteria Moderate Opiates Screen Negative Methadone Screen Negative Barbiturate Screen Negative Phencyclidine Screen Negative Ur Amphetamines Screen Negative MDMA (Ecstasy) Screen Negative Benzodiazepines Screen Negative Cocaine Screen Negative U Marijuana (THC) Screen Positive 10/31/17 21:21 WBC RBC Hgb Hct MCV MCH MCHC RDW Plt Count MPV Absolute Neuts (auto) Neutrophils % Lymphocytes % Monocytes % Eosinophils % Basophils % Nucleated RBC % PT with INR INR PTT (Actin FS) VBG pH POC VBG pCO2 POC VBG pO2 Mixed VBG HCO3 Sodium Potassium Chloride Carbon Dioxide Anion Gap BUN Creatinine Creat Clearance w eGFR Random Glucose Lactic Acid Calcium Total Bilirubin AST ALT Alkaline Phosphatase Ammonia 32.89 H Troponin I Total Protein Albumin Urine Color Urine Appearance Urine pH Ur Specific [place] Urine Protein Urine Glucose (UA) Urine Ketones Urine Blood Urine Nitrite Urine Bilirubin Urine Urobilinogen Ur Leukocyte Esterase Urine WBC (Auto) Urine RBC (Auto) Urine Bacteria Opiates Screen Methadone Screen Barbiturate Screen Phencyclidine Screen Ur Amphetamines Screen MDMA (Ecstasy) Screen Benzodiazepines Screen Cocaine Screen U Marijuana (THC) Screen Active Medications Generic Name Dose Route Start Last Admin Trade Name Freq PRN Reason Stop Dose Admin Chlorhexidine Gluconate 1 applic 10/31/17 22:00 Hibiclens For Decolonization - TP HS ODILIA Heparin Sodium (Porcine) 5,000 unit 11/01/17 02:00 Heparin - SQ Q8H-IV ODILIA Vancomycin HCl 1,500 mg/ 500 mls @ 250 mls/hr 10/31/17 20:58 Dextrose IVPB 10/31/17 22:57 ONCE ONE Protocol Mupirocin 1 applic 10/31/17 22:00 Bactroban Ointment (For Decolonization) - NS 11/05/17 21:59 BID ODILIA Sodium Chloride 1,585 ml 10/31/17 18:45 10/31/17 20:15 Normal Saline - IV 1,585 ml ONCE ODILIA Administration ASSESSMENT/PLAN: The patient is a 32 year old male with no PMH who presented to the hospital today after he was found by his mother confused and weak. For the past 3 days, he has been having watery diarrhea after eating barbeque on at work. The patient is admitted to ICu for AMS and SALBADOR. AMS fever diarrhea SALBADOR troponinemia transaminitis Plan: AMS: Broad differential diagnosis includes: HUS- SALBADOR present but no hemolytic anemia, no thrombocytopenia. F/u haptoglobin, fibrinogen, ALCALA 13. Possible meningitis-ordered spinal tap stat, cont Tylenol for fever, CT head negative for acute pathology. Metabolic encephalopathy: toxicology pos for Marijuana only, amonia level 32.8, will start lactulose, mannitol, Rifaximin, ng tube, RPR, repleate K. The patient was started on Flagyl, Zosyn and Vancomycin in ED. Will give Rocephin and wait for spinal tap results, f/u blood smear. F/u Hem/onc, neurology recommendations. Sepsis- protocol ordered in ED. F/u blood cultures, urine cultures. CXR with possible infiltrate on left side. Transaminitis-unknown if present in the past, will obtain US abdomen, Ct abdomen when more stable, Hepatitis panel, HIV, Cryptococcus, GI on board. SALBADOR; continue fluids at 125 mm/hr, renal US, possible dialysis in AM. Elevated troponins; will follow, no ekg changes, will order another one in AM. Diarrhea; watery, non bloody, ordered stool culture, WBC, ova and parasites, FOBT. Dispo: We will continue to follow the patient. Thank you for this consultative opportunity. Discussed with Dr Suarez and Dr Carrillo. Problem List - Problems (1) Acute kidney failure Code(s): N17.9 - ACUTE KIDNEY FAILURE, UNSPECIFIED Qualifiers: Acute renal failure type: unspecified Qualified Code(s): N17.9 - Acute kidney failure, unspecified (2) Altered mental status Code(s): R41.82 - ALTERED MENTAL STATUS, UNSPECIFIED Qualifiers: Altered mental status type: disorientation Qualified Code(s): R41.0 - Disorientation, unspecified (3) Elevated LFTs Code(s): R94.5 - ABNORMAL RESULTS OF LIVER FUNCTION STUDIES (4) Fever Code(s): R50.9 - FEVER, UNSPECIFIED Qualifiers: Fever type: unspecified Qualified Code(s): R50.9 - Fever, unspecified Visit type - Emergency Visit Emergency Visit: Yes Care time: The patient presented to the Emergency Department on the above date and was hospitalized for further evaluation of their emergent condition. - New Patient This patient is new to me today: Yes Date on this admission: 11/01/17 - Critical Care Critical Care patient: Yes Total Critical Care Time (in minutes): 50 Critical Care Statement: The care of this patient involved high complexity decision making to prevent further life threatening deterioration of the patient 's condition and/or to evaluate & treat vital organ system(s) failure or risk of failure.
[2017-10-31] MEDS ORDERED: CEFTRIAXONE 2 GM in DEXTROSE 5%-WATER 100 ML IVPB ONE (23:26)
[2017-10-31] MEDS ORDERED: MANNITOL 25% 12.5 GM/50 ML VIAL IVPB ONE (23:30)
[2017-11-01] MEDS ORDERED: SODIUM CHLORIDE 1,000 ML IV SCH ×3 (00:15→08:45)
[2017-11-01 00:17] LABS: GLUCOSE,CSF 73 mg/dL (50-80)
[2017-11-01 00:19] LABS: CSF COLOR PINK
[2017-11-01 00:20] LABS: CSF APPEARANCE CLEAR
[2017-11-01 00:26] LABS: CSF WBC 0
[2017-11-01 00:46] LABS: CSF APPEARANCE CLEAR; CSF COLOR COLORLESS; CSF WBC 0
[2017-11-01] MEDS: RIFAXIMIN 550 MG TABLET (UD) PO SCH ×2 (01:30→11:15)
[2017-11-01] MEDS: KCL 10 MEQ IVPB 10 MEQ/100 ML INFUS.BAG IVPB SCH ×3 (01:30→04:53)
[2017-11-01] MEDS ORDERED: HEPARIN NA (PORCINE) 5,000 UNITS/ML 1ML VIAL SQ SCH (02:00)
[2017-11-01] MEDS ORDERED: CEFTRIAXONE 2 GM/100 ML BAG IVPB ONE (02:05)
[2017-11-01] MEDS ORDERED: KCL 10 MEQ IVPB 30 MEQ/300 ML INFUS.BAG IVPB ONE (02:09)
[2017-11-01] MEDS ORDERED: ACETAMINOPHEN 1000 MG/100 ML VIAL (NON FORMULARY) IVPB ONE (06:21)
[2017-11-01] MEDS ORDERED: HEPARIN NA (PORCINE) 5,000 UNITS/ML 1ML VIAL ONE (06:49)
[2017-11-01] MEDS: HEPARIN NA (PORCINE) 5,000 UNITS/ML 1ML VIAL SQ SCH ×3 (06:51→23:36)
[2017-11-01] MEDS ORDERED: PIPERACILLIN/TAZOB 2.25 GM 2.25 GM in DEXTROSE 5%-WATER - 50 ML IVPB ONE (07:03)
[2017-11-01] MEDS ORDERED: PIPERACILLIN/TAZOBACTAM 2.25 GM VIAL IVPB ONE (07:33)
[2017-11-01 08:05] LABS: BASO % 0.2 % (0-2.0); EOS % 0.1 % (0-4.5); HEMATOCRIT 37.2 % (35.4-49); HEMOGLOBIN 12.9 GM/dL (11.7-16.9); LYMPH % 8.1 % (8-40); MCH 30.2 pg (25.7-33.7); MCHC 34.6 g/dl (32.0-35.9); MEAN CELL VOLUME 87.4 fl (80-96); MEAN PLT VOLUME 8.3 fl (7.5-11.1); MONO % 7.7 % (3.8-10.2); NEUT % 83.9 % (42.8-82.8); PLATELET COUNT 108 K/MM3 (134-434); RBC 4.26 M/mm3 (4.00-5.60); RDW 13.2 % (11.9-15.9); WHITE BLOOD COUNT 4.9 K/mm3 (4.0-10.0)
[2017-11-01 08:21] LABS: INR 1.13 (0.83-1.09); PROTHROMBIN TIME (PATIENT) 12.8 SEC (9.7-13.0)
[2017-11-01 08:48] LABS: ALBUMIN 2.1 g/dl (3.4-5.0); ANION GAP 15 (8-16); BLOOD UREA NITROGEN 65 mg/dL (7-18); CHLORIDE 99 mmol/L (98-107); CO2 17 mmol/L (21-32); GLUCOSE,RANDOM 113 mg/dL (74-106); MAGNESIUM 2.6 mg/dL (1.8-2.4); POTASSIUM 3.7 mmol/L (3.5-5.1); SODIUM 131 mmol/L (136-145)
[2017-11-01 08:50] LABS: ALK PHOS 65 U/L (45-117); BILIRUBIN,TOTAL 1.7 mg/dL (0.2-1.0); SGOT/AST 371 U/L (15-37); SGPT/ALT 214 U/L (12-78); TOT PROT 5.6 g/dl (6.4-8.2)
[2017-11-01 09:12] LABS: CALCIUM 6.7 mg/dL (8.5-10.1); CREATININE 8.6 mg/dL (0.7-1.3)
--- NOTE | 2017-11-01 09:58 | PN ---
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 ED by EMS when family found him weak in bed he has had diarrhea per family for several days (history from chart) spoke to Mom- girlfriend at bedside has not spoken to him since Wednesday- when he was feeling well brought to ED with fever 102.6 acute renal failure abnormal LFTS lethargic but answering questions went to cookout Wednesday-nonbloody became weak Wednesday fever to 105 at home-didn't want to go to ED- drinking gatorade slurred speech since Wednesday, confused fell in the bathroom no vomiting pet dog no travel received 4 liters of IVF about [address] scan head- WNL CT scan abd/pelvis with no colitis, Left lower lobe infiltrate-pneumonia ABNL LFTs hyponatremia acute renal failure consents to HIV testing needs CPK r/o atypical pneumonia ?diarrheal illness with subsequent renal failure Legionella urinary antigen stat one dose levaquin while we wait for legionella results receive vancomycin, zosyn, ceftriaxone and flagyl in ED over 50 minutes spent in the care of this critically ill ICU patient Problem List - Problems (1) Pneumonia Code(s): J18.9 - PNEUMONIA, UNSPECIFIED ORGANISM (2) Acute kidney failure Code(s): N17.9 - ACUTE KIDNEY FAILURE, UNSPECIFIED Qualifiers: Acute renal failure type: unspecified Qualified Code(s): N17.9 - Acute kidney failure, unspecified (3) Altered mental status Code(s): R41.82 - ALTERED MENTAL STATUS, UNSPECIFIED Qualifiers: Altered mental status type: disorientation Qualified Code(s): R41.0 - Disorientation, unspecified (4) Elevated LFTs Code(s): R94.5 - ABNORMAL RESULTS OF LIVER FUNCTION STUDIES
[2017-11-01] MEDS ORDERED: LACTULOSE 20 GM/30 ML UDC (FOR ORAL USE ONLY) PO SCH ×2 (10:00)
--- NOTE | 2017-11-01 10:04 | CONSULT ---
Consultation: REQUESTING PROVIDER: CONSULT REQUEST: We have been asked to medically evaluate this patient for ( hematology- oncology). HISTORY OF PRESENT ILLNESS: 32 y/o M with no PMH was brought to the hospital by EMS when family found him weak in bed altered mental status and diarrhoea. Patient states that he went out with his friends for barbeque on Wednesday in [place] where he had chicken, hot dog and burgers. Patient states that after eating them he was not feeling good and and later on started having a diarrhoea on . He denies blood and mucus in stool. He denies eating sea food, antibiotics and denies camping. He also denies coming in contact of kids. Patient also reports vomiting but no blood in vomit. PMH: None PSH: None Family history: Mother: healthy Father: healthy. Sister: colon cancer diagnosed 18 years ago ( Details not available) Social: smokes marijuana. No alcohol, No IV drug abuse or other drugs. Lives with his parents in [place]. Works at [employer]. Sexually active with 3 partners. Girls. Allergies Allergy/AdvReac Type Severity Reaction Status Date / Time No Known Allergies Allergy Verified 10/31/17 18:06 REVIEW OF SYSTEMS: CONSTITUTIONAL: Present diphoresis present, weakness, slurred speech. Absent: , malaise, weight change HEENT: Absent: rhinorrhea, nasal congestion, throat pain, throat swelling, difficulty swallowing, mouth swelling, ear pain, eye pain, visual changes CARDIOVASCULAR: Absent: chest pain, syncope, palpitations, irregular heart rate, lightheadedness , peripheral edema RESPIRATORY: Absent: cough, shortness of breath, dyspnea with exertion, orthopnea, wheezing, stridor, hemoptysis GASTROINTESTINAL: present mild pain, diarrhoea and vomiting Absent: abdominal distension, constipation, melena, hematochezia GENITOURINARY: Absent: dysuria, frequency, urgency, hesitancy, hematuria, flank pain, genital pain MUSCULOSKELETAL: Absent: joint swelling, back pain, neck pain SKIN: Absent: rash, itching, pallor HEMATOLOGIC/IMMUNOLOGIC: Absent: easy bleeding, easy bruising, ENDOCRINE: Absent: unexplained weight gain, unexplained weight loss, NEUROLOGIC: Absent: headache, focal weakness or paresthesias, dizziness, unsteady gait, seizure, mental status changes, PSYCHIATRIC: Absent: anxiety, depression, PHYSICAL EXAMINATION Vital Signs - 24 hr 11/01/17 11/01/17 11/01/17 06:14 07:05 07:41 Temperature 99 F 98.9 F Pulse Rate Pulse Rate [ 89 83 Apical] Respiratory 19 20 Rate Blood Pressure Blood Pressure 136/78 104/76 [Left Arm] O2 Sat by Pulse 98 98 Oximetry (%) GENERAL: Awake, alert, and oriented to place, person and year. Answer al quesions but is slow in answering questions and has slurred speech. HEAD: Normal with no signs of trauma. EYES: Pupils equal, round and reactive to light, extraocular movements intact, conjunctiva clear, pupil about 3mm b/l EARS, NOSE, THROAT: Ears normal, nares patent, oropharynx clear without exudates. Dry mucous membranes, small ulcer present in oral cavity right side NECK: Normal range of motion, supple without lymphadenopathy, JVD, or masses. LUNGS: Breath sounds equal, clear to auscultation bilaterally. No wheezes, and no crackles. No accessory muscle use. HEART: Regular rate and rhythm, normal S1 and S2 without murmur, rub or gallop. ABDOMEN: Soft, mild tender in umblical area, normoactive bowel sounds, no guarding, no rebound, no masses. no testicukar swelling, no stool around perianal area MUSCULOSKELETAL: moving all 4 limbs, No CVA tenderness. UPPER EXTREMITIES: 2+ pulses, warm, well-perfused. No cyanosis. No clubbing. No peripheral edema. LOWER EXTREMITIES: 2+ pulses, cold feet, No calf tenderness. No peripheral edema. NEUROLOGICAL: slurred speech. PSYCHIATRIC: Cooperative. SKIN: Warm, dry, = 11/01/17 11/01/17 07:50 07:50 WBC RBC Hgb Hct MCV MCH MCHC RDW Plt Count MPV Absolute Neuts (auto) Neutrophils % Lymphocytes % Monocytes % Eosinophils % Basophils % Nucleated RBC % PT with INR 12.80 INR 1.13 H PTT (Actin FS) VBG pH POC VBG pCO2 POC VBG pO2 Mixed VBG HCO3 Sodium Potassium Chloride Carbon Dioxide Anion Gap BUN Creatinine Creat Clearance w eGFR Random Glucose Lactic Acid Calcium Phosphorus Magnesium Total Bilirubin GGT AST ALT Alkaline Phosphatase Ammonia LD Total Troponin I Cancelled Total Protein Albumin Urine Color Urine Appearance Urine pH Ur Specific [place] Urine Protein Urine Glucose (UA) Urine Ketones Urine Blood Urine Nitrite Urine Bilirubin Urine Urobilinogen Ur Leukocyte Esterase Urine WBC (Auto) Urine RBC (Auto) Urine Bacteria U Random Total Protein Ur Random Sodium Urine Creatinine CSF Appearance CSF Color CSF WBC CSF RBC CSF Neutrophils CSF Lymphocytes CSF Eosinophils CSF Basophils CSF Macrophages CSF Plasma Cells CSF Diff Comment CSF Comment CSF Glucose CSF Total Protein Opiates Screen Methadone Screen Barbiturate Screen Phencyclidine Screen Ur Amphetamines Screen MDMA (Ecstasy) Screen Benzodiazepines Screen Cocaine Screen U Marijuana (THC) Screen RPR Titer Active Medications Generic Name Dose Route Start Last Admin Trade Name Tatyana PRN Reason Stop Dose Admin Chlorhexidine Gluconate 1 applic 10/31/17 22:00 Hibiclens For Decolonization - TP HS ODILIA Heparin Sodium (Porcine) 5,000 unit 11/01/17 06:00 11/01/17 06:51 Heparin - SQ 5,000 unit TID ODILIA Administration Sodium Chloride 1,000 mls @ 100 mls/hr 11/01/17 08:45 Normal Saline - IV ASDIR ODILIA Mupirocin 1 applic 10/31/17 22:00 Bactroban Ointment (For Decolonization) - NS 11/05/17 21:59 BID ODILIA Rifaximin 550 mg 10/31/17 23:45 11/01/17 01:30 Xifaxan - PO 550 mg BID ODILIA Administration ASSESSMENT/PLAN: 32 y/o M with no PMH was brought to the hospital brought to ED by EMS when family found him weak in bed diarrhoea. Patient denies blood and mucus in stool. Patient was found to have SALBADOR, transamenitis, thrombocytopenia. Ultrasound shows mild splenomegaly and hepatomegaly. Ct scan shows Left lower lobe consolidation, liquid stool in colon. Patient was also found to have fever of about 102.6 in hospital. Patient receive vancomycin, zosyn, ceftriaxone and flagyl in ED. Now patient has been started on Levaquin by ID. Legionella antigen pending. Patient didn't have any bowel movement in hospital. - Thrombocytopenia ( plt 108) can be because of hyperspleeninsm,sepsis or legionella less likely HUS or TTP. In HUS platelets are usually below 20K. We will get PBF to look for schistocytes. ADAMTS 13 is pending. Total bilrubin is 1.7, we will order direct bilurubin. We will also order heptoglobin, fibrinogen and ldh. Coomb test is pending. HIV pending, autoimmune work up pending. - Stool studies are pending. We will also order Shiga toxin producing E. Coi. - Patient has pneumonia with elevated lft with hyponatremia which can be because of Legionella. Patient is on Levaquin. ID is on case. - neurology, nephrology, GI and ID on case. Dispo: We will continue to follow the patient. Thank you for this consultative opportunity. Visit type - Emergency Visit Emergency Visit: Yes ED Registration Date: 11/01/17 Care time: The patient presented to the Emergency Department on the above date and was hospitalized for further evaluation of their emergent condition. - New Patient This patient is new to me today: Yes Date on this admission: 11/01/17 - Critical Care Critical Care patient: Yes Total Critical Care Time (in minutes): 45 Critical Care Statement: The care of this patient involved high complexity decision making to prevent further life threatening deterioration of the patient 's condition and/or to evaluate & treat vital organ system(s) failure or risk of failure.
[2017-11-01 10:13] LABS: BILIRUBIN,DIRECT 1.4 mg/dL (0.0-0.2)
[2017-11-01 10:33] LABS: COCAINE, UR NEGATIVE ng/ml (CUTOFF=300); METHADONE, UR NEGATIVE ng/ml (CUTOFF=300); OPIATES, URI NEGATIVE ng/ml (CUTOFF=300); PHENCYCLIDINE,URINE NEGATIVE ng/ml (CUTOFF=25); URINE AMPHETAMINES NEGATIVE ng/ml (CUTOFF=500); URINE BARBITURATES NEGATIVE ng/ml (CUTOFF=200); URINE BENZODIAZEPINES NEGATIVE ng/ml (CUTOFF=200)
[2017-11-01 10:41] LABS: LDH 1744 U/L (87-241)
--- NOTE | 2017-11-01 10:53 | CONSULT ---
Consult - text type - Consultation Consultation Note: Renal Consult for SALBADOR This is a 32 year old AA gentleman with no significant PMhx who presented to the ED with fever and AMS and found to have Acute Renal Injury, Liver injury, Fever and lethargy. Pt went to a BBQ on Wednesday, ate some bad meat as per mother has been febrile with diarrhea since then. Pt noted to have fever as high as 105. Mother reports giving him Advil x 2 at home, pt reports using Excedrin (unknown amount). Denies hx of CKD. No skin rash. Reprots LE pain (mild , aching). Denies any blood in urine. Denies ETOH use. PMhx: as above Allergies: NKDA Family Hx: NC Social hx: No T/A/D ROS: as per HPI Home Medications Medication Instructions Recorded NK [No Known Home Medication] 10/31/17 Vital Signs Temperature 98.1 F 11/01/17 10:06 Pulse Rate 78 11/01/17 10:06 Respiratory Rate 20 11/01/17 10:06 Blood Pressure 113/85 11/01/17 10:06 O2 Sat by Pulse Oximetry (%) 100 11/01/17 10:06 Intake & Output 10/29/17 10/30/17 10/31/17 11/01/17 23:59 23:59 23:59 23:59 Weight 86.183 kg Lethargic, groggy but oriented and answers all questions neck supple, no JVD Dry MM RRR, No M/R CTA, no rales or wheeze mild abd distension, no organomegaly no bladder distension, hernandez in place No LE edema, clubbing or cyanosis no rash or purpura Laboratory Tests 11/01/17 11/01/17 07:50 07:50 Hgb 12.9 Hct 37.2 Plt Count 108 L D Sodium 131 L Potassium 3.7 Carbon Dioxide 17 L Anion Gap 15 BUN 65 H Creatinine 8.6 H* Calcium 6.7 L* Phosphorus 5.0 H Magnesium 2.6 H AST 371 H D ALT 214 H D LD Total 1744 H Creatine Kinase Pending Albumin 2.1 L Current Medications Chlorhexidine Gluconate (Hibiclens For Decolonization -) 1 applic TP HS ODILIA Heparin Sodium (Porcine) (Heparin -) 5,000 unit SQ TID ODILIA Last Admin: 11/01/17 06:51 Dose: 5,000 unit Sodium Chloride (Normal Saline -) 1,000 mls @ 100 mls/hr IV ASDIR [facility] Last Admin: 11/01/17 07:40 Dose: 100 mls/hr Levofloxacin (Levaquin 750 Mg Premixed Ivpb -) 750 mg in 150 mls @ 100 mls/hr IVPB ONCE ONE; Protocol Stop: 11/01/17 12:09 Mupirocin (Bactroban Ointment (For Decolonization) -) 1 applic NS BID [facility] Stop: 11/05/17 21:59 Rifaximin (Xifaxan -) 550 mg PO BID [facility] Last Admin: 11/01/17 01:30 Dose: 550 mg 32 year old AA gentleman with no significant PMhx who presented to the ED with fever and AMS and found to have Acute Renal Injury, Liver injury, Fever and lethargy. #Acute Renal Injury (differential includes: HUS/TTP, salicylate Toxcity/ Acetaminophen Toxicity, legionella infection, ATN, Pigment injury from Rhabdo) #AMS #Fever #Metabolic acidosis #Elevated LDH/Hemolysis/Thrombocytopenia FeNa is 0.65%, and pt with subnehprotic proteinuria. LDH very elevated, CPK pending. Check Salicylate and acetaminophen levels. Check Legionella urine antigen. Continue aggressive IVF hydration with NS, give additional bolus if mental status does not improve, acidosis worsens will need ECONOMICS ANALYST today ICU care Abx as per KARENA monreal, as pt may need plasma exchange Will follow Rojas Edmondson DO
[2017-11-01 10:59] LABS: BASO % 0.1 % (0-2.0); HEMATOCRIT 38.5 % (35.4-49); HEMOGLOBIN 13.1 GM/dL (11.7-16.9); LYMPH % 10.3 % (8-40); MCHC 34.2 g/dl (32.0-35.9); MEAN CELL VOLUME 87.8 fl (80-96); MEAN PLT VOLUME 7.9 fl (7.5-11.1); MONO % 8.7 % (3.8-10.2); NEUT % 80.9 % (42.8-82.8); PLATELET COUNT 110 K/MM3 (134-434); RBC 4.38 M/mm3 (4.00-5.60); RDW 13.4 % (11.9-15.9)
[2017-11-01 11:22] LABS: ALBUMIN 2.2 g/dl (3.4-5.0); ANION GAP 14 (8-16); BLOOD UREA NITROGEN 67 mg/dL (7-18); CHLORIDE 99 mmol/L (98-107); CO2 18 mmol/L (21-32); GLUCOSE,RANDOM 100 mg/dL (74-106); POTASSIUM 3.7 mmol/L (3.5-5.1); SGOT/AST 382 U/L (15-37); SGPT/ALT 224 U/L (12-78); SODIUM 131 mmol/L (136-145)
[2017-11-01 11:23] LABS: ALK PHOS 68 U/L (45-117); BILIRUBIN,TOTAL 1.9 mg/dL (0.2-1.0); TOT PROT 5.9 g/dl (6.4-8.2)
[2017-11-01 11:26] LABS: CALCIUM 6.9 mg/dL (8.5-10.1); CREATININE 8.8 mg/dL (0.7-1.3)
--- NOTE | 2017-11-01 11:30 | CON.NEURO ---
Consult Consult Specialty:: Lester Referred by:: ED - History of Present Illness History of Present Illness: reason for the consultation is altered mental status Called by the emergency room physician History of the present illness This is a 32-year-old right-handed -[place] man with essentially no medical history presents to the hospital being brought by his father on Wednesday night with a chief complaint of altered mental status fever and diarrhea. In the emergency room patient was stepwise was found to be temperature of 102. CAT scan of the head revealed no evidence of acute pathology. Patient was noted to be in altered mental status with no seizure activity patient was mostly delirious. Patient was stabilized and was to be admitted to the medical ICU. Emergency room course blood work revealed kidney failure and liver failure of acute onset. Patient urine toxicology tested positive for marijuana. On further questioning patient had barbecue on Wednesday patient was able to answer some questions with short attention span with no active seizure. Patient will go in and out of altered mental status. Patient is not compatible or aggressive but was noted to be with increasing weakness in the legs. There was a report of diarrhea 4 days ago. Patient attended the [facility] in [place] no recent travel no head trauma. This morning when I saw the patient the fianc was at the bedside and patient was not recognizing her although he knew he is at [facility] his responsive alert follows one- step command. I noted that the patient is very flaccid on the leg post to pain symmetrically. There was a decrease DTR throughout. This morning he was hemodynamically stable with no fever. Case was discussed with infectious disease specialist. Spinal tap was done in the emergency room results were noted. - History Source History Provided By: Medical Record Limitations to Obtaining History: Clinical Condition - Alcohol/Substance Use Hx Alcohol Use: Yes (SOCIAL) - Smoking History Smoking history: Never smoked Have you smoked in the past 12 months: No Aproximately how many cigarettes per day: 1 Home Medications - Allergies Allergies/Adverse Reactions: Allergies Allergy/AdvReac Type Severity Reaction Status Date / Time No Known Allergies Allergy Verified 10/31/17 18:06 - Home Medications Home Medications: Ambulatory Orders NK [No Known Home Medication] 10/31/17 Family Disease History - Family Disease History Family History: Unable to Obtain Review of Systems - Review of Systems Constitutional: reports: No Symptoms Eyes: reports: No Symptoms Physical Exam-Neuro Vital Signs: Vital Signs Temperature 98.1 F 11/01/17 10:06 Pulse Rate 78 11/01/17 10:06 Respiratory Rate 20 11/01/17 10:06 Blood Pressure 113/85 11/01/17 10:06 O2 Sat by Pulse Oximetry (%) 100 11/01/17 10:06 Constitutional: Yes: Well Nourished Neck: Yes: WNL Labs: CBC, BMP 11/01/17 10:31 INR, PTT INR 1.13 (0.83-1.09) H 11/01/17 07:50 - Neuro Exam Level Of Consciousness: Yes: Oriented to Person, Oriented to Place Eyes: Yes: PERRLA Speech: Garbled (ppatient seen in the emergency roomShort attention span with no spontaneous movement no seizure-like activity follows one-step command no gaze deviation bilaterally equal reactive pupils no positive weak gag no meningismus no Kernig's decreased tone all over decreased deep tendon reflexes) Imaging - Results X-ray: Report Reviewed, Image Reviewed Problem List - Problems (1) Altered mental status Assessment/Plan: very strange constellation of symptoms of a young man with no medical history with 4 days of diarrhea than fever didn't weakness with altered mental status. His mental status is very strange because he will answer some question appropriately and some not. No report of any seizure activity in the emergency room course. Patient is to be admitted to the medical ICU. His liver function slightly better his GGT is normal his ammonia level is slilevated CSF analysis does not confirm demyelinating disease There was a discussion with the infectious disease specialist about botulism the picture does not clearly fit that although the patient has the paralysis with deep tendon reflexes absent for proceed with the blood work and nerve conduction testing. 1. I'm considering repeating the CSF to check the protein again. 2. Admit to the medical ICU. 3. Neuro checks every 1 hour. 4. Aspiration precautions. 5. Close monitoring of the respiratory status to. 6. Nerve conduction testing electromyography of the lower extremities. 7. At this point there is no reason to do an MRI of the brain. 8. Awaiting cultures from the CSF and blood. 9. Follow-up with infectious disease specialist. Code(s): R41.82 - ALTERED MENTAL STATUS, UNSPECIFIED Qualifiers: Altered mental status type: disorientation Qualified Code(s): R41.0 - Disorientation, unspecified
[2017-11-01 11:47] LABS: PLATELET ESTIMATE SLT DECREASE
--- NOTE | 2017-11-01 11:47 | EKG ---
Test Reason : Blood Pressure : / mmHG Vent. Rate : 092 BPM Atrial Rate : 092 BPM P-R Int : 146 ms QRS Dur : 078 ms QT Int : 318 ms P-R-T Axes : 043 028 026 degrees QTc Int : 393 ms NORMAL SINUS RHYTHM NORMAL ECG WHEN COMPARED WITH ECG OF 25-JUN-2015 16:22, NO SIGNIFICANT CHANGE WAS FOUND Confirmed by CARMINA BENDER MD ([id number]) on 11/01/2017 11:47:31 AM Referred By: Confirmed By:CARMINA BENDER MD
--- NOTE | 2017-11-01 11:53 | PN ---
Teaching Attending Note Name of Resident: Doug Gil ATTENDING PHYSICIAN STATEMENT I saw and evaluated the patient. I reviewed the resident's note and discussed the case with the resident. I agree with the resident's findings and plan as documented. SUBJECTIVE: Pt seen and examined in the ICU. Briefly, 32 yo male without significant past medical history who was admitted with increasing lethargy and fevers. Apparently went to a barbeque a few days ago, developed dark, watery diarrhea and fevers. Noticed his urination was less frequent and darker urine. Found to have a large LLL consolidation and in acute renal failure with thrombocytopenia. No recent travel or sick contacts. No skin rashes. Does not have regular medical follow up. OBJECTIVE: Vital Signs Period Temp Pulse Resp BP Sys/Dangelo Pulse Ox Last 24 Hr 98.1 F-102.6 F 78-104 19-22 104-136/75-85 96-100 Intake & Output 10/29/17 10/30/17 10/31/17 11/01/17 23:59 23:59 23:59 23:59 Weight 86.183 kg Gen: lethargic but arousable Heart: RRR Lung: decreased breath sounds at the bases Abd: soft, nontender Ext: no edema CBC, BMP 11/01/17 10:31 11/01/17 10:31 Active Medications Calcium Gluconate (Calcium Gluconate 10% -) 1,000 mg IVPUSH ONCE ONE Stop: 11/01/17 12:01 Chlorhexidine Gluconate (Hibiclens For Decolonization -) 1 applic TP HS ODILIA Heparin Sodium (Porcine) (Heparin -) 5,000 unit SQ TID [facility] Last Admin: 11/01/17 06:51 Dose: 5,000 unit Sodium Chloride (Normal Saline -) 1,000 mls @ 100 mls/hr IV ASDIR ODILIA Last Admin: 11/01/17 07:40 Dose: 100 mls/hr Levofloxacin (Levaquin 750 Mg Premixed Ivpb -) 750 mg in 150 mls @ 100 mls/hr IVPB ONCE ONE; Protocol Stop: 11/01/17 12:09 Last Admin: 11/01/17 11:15 Dose: 100 mls/hr Mupirocin (Bactroban Ointment (For Decolonization) -) 1 applic NS BID [facility] Stop: 11/05/17 21:59 Rifaximin (Xifaxan -) 550 mg PO BID ODILIA Last Admin: 11/01/17 11:15 Dose: 550 mg ASSESSMENT AND PLAN: Pneumonia - r/o Legionella r/o Acute Colitis Severe Sepsis Acute Kidney Injury Metabolic Acidosis Altered Mental Status Thrombocytopenia r/o TTP/HUS Hyponatremia Elevated LFTs +Troponins likely Demand Ischemia - antibiotics per ID - f/u cultures, legionella ag - stool cultures - IVF - monitor urine output, creatinine - check ABG - if worsening acidosis, will need HD - monitor CBC - check peripheral smear - trend LFTs - trend cardiac enzymes - keep NPO - continue ICU monitoring critical care time spent in reviewing chart, evaluating patient and formulating plan 35 min
[2017-11-01] MEDS ORDERED: CALCIUM GLUCONATE 10% - 1,000 MG/10 ML VIAL IVPUSH ONE (12:00)
[2017-11-01] MEDS ORDERED: CALCIUM GLUCONATE 10% - 1,000 MG/10 ML VIAL ONE (12:24)
[2017-11-01 12:49] LABS: OSMOLALITY,SERUM 296 mosm/kg (278-305)
[2017-11-01 12:55] LABS: ARTERIAL BLD GAS O2 SATURATION 96.5 % (90-98.9); ARTERIAL BLOOD GAS BASE EXCESS -7.7 meq/l (-2-2); ARTERIAL BLOOD GAS PCO2 28.9 mmHg (35-45); ARTERIAL BLOOD GAS PO2 86.8 mmHg (80-100); ARTERIAL BLOOD GAS pH 7.36 (7.35-7.45)
[2017-11-01 12:57] LABS: ALLENS TEST POSITIVE
[2017-11-01 13:36] LABS: ANION GAP 16 (8-16); BLOOD UREA NITROGEN 69 mg/dL (7-18); CHLORIDE 101 mmol/L (98-107); CO2 17 mmol/L (21-32); GLUCOSE,RANDOM 101 mg/dL (74-106); POTASSIUM 3.9 mmol/L (3.5-5.1); SODIUM 134 mmol/L (136-145)
--- NOTE | 2017-11-01 14:41 | CONSULT ---
Consult Consult Specialty:: PM&R - History of Present Illness Chief Complaint: diffuse weakness History of Present Illness: This is a 32 year old man without significant medical history who presented to the ED 10/31/17 with watery diarrhea since 10/26/17 barbeque as well as progressive weakness and AMS. He was diagnosed with sepsis, attributed to bacterial colitis with transaminitis and SALBADOR. Neurology was consulted for possible meningitis; LP was not c/w demylinating disorder. EMG BLE is requested. - History Source History Provided By: Patient, Medical Record - Alcohol/Substance Use Hx Alcohol Use: Yes (SOCIAL) - Smoking History Smoking history: Current every day smoker Have you smoked in the past 12 months: Yes Aproximately how many cigarettes per day: 5 Home Medications - Allergies Allergies/Adverse Reactions: Allergies Allergy/AdvReac Type Severity Reaction Status Date / Time No Known Allergies Allergy Verified 10/31/17 18:06 - Home Medications Home Medications: Ambulatory Orders NK [No Known Home Medication] 10/31/17 Review of Systems Findings/Remarks: denies fevers, changes in vision/ hearing/ mood, CP, SOB, abdominal pain; +Sunshine , denies muscle/ joint pain or paresthesias Notes BLE more than BUE weakness, LLE more than RLE; also notes chills; difficult to obtain ROS as he kept falling asleeping/ mumbling Physical Exam Vital Signs: Vital Signs Temperature 98.6 F 11/01/17 11:55 Pulse Rate 80 11/01/17 11:55 Respiratory Rate 18 11/01/17 11:55 Blood Pressure 130/86 11/01/17 11:55 O2 Sat by Pulse Oximetry (%) 100 11/01/17 11:55 Extremities: Yes: Other (General: calm AAM lying in bed NAD, alternates between wide awake and falling asleep N/M: 3/5 BUE, 1-2/5 BLE but at times 3/5 BLE depending on mental status Extremities: no BLE pitting edema, no B calf tenderness, + feet cool to touch) Labs: CBC, BMP 11/01/17 10:31 11/01/17 12:59 Assessment/Plan Electrodiagnostics were performed, please see scanned imaging for details: Impression: 1) Deficits mobility/ ADLs 2) 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 Results can also be explained by very cold feet which slows down nerves. 3) Sepsis: acute colitis and possible PNA 4) AMS 5) SALBADOR 6) Hyponatremia 7) Thrombocytopenia 8) +Troponins likely Demand Ischemia 9) BMI WNL Recommendations: 1) PT for stretching strengthening ROM and functional mobility 2) Falls, safety precautions 3) Cardiac precautions 4) DVT ppx: on hep sc 5) Skin protection: float heels, frequent turning 6) Bowel regimen prn 7) Continue work-up per primary team 8) Discharge planning: depending on his medical progress, he may benefit from inpatient rehabilitation once medically stable Thank you for this referral.
[2017-11-01 15:02] LABS: CALCIUM 6.8 mg/dL (8.5-10.1); CREATININE 8.7 mg/dL (0.7-1.3)
--- NOTE | 2017-11-01 16:06 | PN ---
Teaching Attending Note Name of Resident: Xavier Alarcon ATTENDING PHYSICIAN STATEMENT I saw and evaluated the patient. I reviewed the resident's note and discussed the case with the resident. I agree with the resident's findings and plan as documented. SUBJECTIVE: OBJECTIVE: ASSESSMENT AND PLAN: Patient seen and examined 32 year old presents with diarrhea, dehydration, SALBADOR, LLL consolidation., abnormal LFT's, , lethargy. Work up revealed positive urine for legionella. Currently on antibiotics per I.D. In view of SALBADOR, mental changes, fevers, ? of HUS was raised. Peripheral smear reviewed - NO schistocytes. RBC- NC/NC. WBC- left shift with toxic granulation, and adequate platelets. Mild thrombocytopenia noted may be secondary to sepsis, liver disease, hypersplenism. Coags- mildly abnormal. Will follow.
--- NOTE | 2017-11-01 18:18 | PN ---
Physical Exam: SUBJECTIVE: Patient seen and examined at bedside. Pt was difficult to arouse and elicit a complete history. He responded to some commands during neuro exam. Pt speech was difficult to understand. He denied chest pain, shortness of breath , headaches, dizziness. OBJECTIVE: Vital Signs 11/01/17 11/01/17 11/01/17 14:00 16:00 20:00 Temperature 98.8 F Pulse Rate 84 87 108 H Respiratory 20 137 H 28 H Rate Blood Pressure 130/91 137/94 132/88 GENERAL: No acute distress. AAOx1. Slurred speech. Arousable with physical stimuli. HEENT: AT/NC. Moist mucus membrane. No facial droop noted. B/l pupil sluggishly reactive to light. No erythema noted in oropharynx. Tracks with eyes but is very sluggish. NECK: supple without lymphadenopathy, minimal JVD noted LUNGS: Some mild wheezing, no crackles noted. HEART: Regular, rate, and rhythm, no murmurs noted. ABDOMEN: Soft, obese, no masses or organomegaly noted. +lower abdominal tenderness. UPPER EXTREMITIES: 2+ pulses, well-perfused. No cyanosis. No clubbing. No peripheral edema. Cool b/l extremities. 4/5 muscle strength b/l extremities. LOWER EXTREMITIES: 2+ pulses, well-perfused. No calf tenderness. No peripheral edema. Cool b/l extremities. 2/5 muscle strength b/l extremities. NEUROLOGICAL: Responds to commands. SKIN: Warm, dry, normal turgor, no rashes or lesions noted, normal capillary refill. Laboratory Results - last 24 hr 10/31/17 10/31/17 10/31/17 18:00 18:00 18:20 WBC 6.7 RBC 4.73 Hgb 14.3 Hct 40.3 MCV 85.3 MCH 30.3 MCHC 35.5 RDW 12.9 Plt Count 151 MPV 8.2 Absolute Neuts (auto) 5.3 Total Counted Neutrophils % 78.5 Neutrophils % (Manual) Band Neutrophils % Lymphocytes % 14.9 Lymphocytes % (Manual) Monocytes % 6.2 Monocytes % (Manual) Eosinophils % 0.0 Basophils % 0.4 Nucleated RBC % 0 Metamyelocytes Platelet Estimate Schistocytes ESR Retic Count PT with INR INR PTT (Actin FS) Puncture Site ABG pH ABG pCO2 at Pt Temp ABG pO2 at Pt Temp ABG HCO3 ABG O2 Sat (Measured) ABG O2 Content ABG Base Excess Julio Cesar Test VBG pH POC VBG pCO2 POC VBG pO2 Mixed VBG HCO3 O2 Delivery Device Oxygen Flow Rate Sodium Potassium Chloride Carbon Dioxide Anion Gap BUN Creatinine Creat Clearance w eGFR Random Glucose Serum Osmolality Lactic Acid Calcium Phosphorus Magnesium Total Bilirubin Direct Bilirubin GGT 57 AST ALT Alkaline Phosphatase Ammonia LD Total 1800 H Creatine Kinase Creatine Kinase Index CK-MB (CK-2) Troponin I Total Protein Albumin Urine Color Urine Appearance Urine pH Ur Specific [place] Urine Protein Urine Glucose (UA) Urine Ketones Urine Blood Urine Nitrite Urine Bilirubin Urine Urobilinogen Ur Leukocyte Esterase Urine WBC (Auto) Urine RBC (Auto) Urine Bacteria Urine Osmolality U Random Total Protein Ur Random Sodium Ur Random Potassium Ur Random Chloride Ur Random Urea Nitrogn Urine Creatinine Urine Potassium CSF Appearance CSF Color CSF WBC CSF RBC CSF Neutrophils CSF Lymphocytes CSF Eosinophils CSF Basophils CSF Macrophages CSF Plasma Cells CSF Diff Comment CSF Comment CSF Glucose CSF Total Protein Salicylates Opiates Screen Methadone Screen Barbiturate Screen Phencyclidine Screen Ur Amphetamines Screen MDMA (Ecstasy) Screen Benzodiazepines Screen Cocaine Screen U Marijuana (THC) Screen RPR Titer HIV 1&2 Antibody Screen HIV P24 Antigen Direct Antiglob Test 10/31/17 10/31/17 10/31/17 18:20 18:20 18:20 WBC RBC Hgb Hct MCV MCH MCHC RDW Plt Count MPV Absolute Neuts (auto) Total Counted Neutrophils % Neutrophils % (Manual) Band Neutrophils % Lymphocytes % Lymphocytes % (Manual) Monocytes % Monocytes % (Manual) Eosinophils % Basophils % Nucleated RBC % Metamyelocytes Platelet Estimate Schistocytes ESR Retic Count PT with INR 12.60 INR 1.12 H PTT (Actin FS) 38.4 H Puncture Site ABG pH ABG pCO2 at Pt Temp ABG pO2 at Pt Temp ABG HCO3 ABG O2 Sat (Measured) ABG O2 Content ABG Base Excess Julio Cesar Test VBG pH 7.47 H POC VBG pCO2 26.9 L POC VBG pO2 66.4 H Mixed VBG HCO3 19.2 O2 Delivery Device Oxygen Flow Rate Sodium 131 L Potassium 3.2 L Chloride 95 L Carbon Dioxide 21 Anion Gap 15 BUN 58 H Creatinine 7.5 H Creat Clearance w eGFR 8.52 Random Glucose 128 H Serum Osmolality Lactic Acid Calcium 8.0 L Phosphorus Magnesium Total Bilirubin 2.1 H Direct Bilirubin GGT AST 476 H ALT 295 H Alkaline Phosphatase 81 Ammonia LD Total Creatine Kinase Creatine Kinase Index CK-MB (CK-2) Troponin I Total Protein 7.0 Albumin 2.9 L Urine Color Urine Appearance Urine pH Ur Specific [place] Urine Protein Urine Glucose (UA) Urine Ketones Urine Blood Urine Nitrite Urine Bilirubin Urine Urobilinogen Ur Leukocyte Esterase Urine WBC (Auto) Urine RBC (Auto) Urine Bacteria Urine Osmolality U Random Total Protein Ur Random Sodium Ur Random Potassium Ur Random Chloride Ur Random Urea Nitrogn Urine Creatinine Urine Potassium CSF Appearance CSF Color CSF WBC CSF RBC CSF Neutrophils CSF Lymphocytes CSF Eosinophils CSF Basophils CSF Macrophages CSF Plasma Cells CSF Diff Comment CSF Comment CSF Glucose CSF Total Protein Salicylates Opiates Screen Methadone Screen Barbiturate Screen Phencyclidine Screen Ur Amphetamines Screen MDMA (Ecstasy) Screen Benzodiazepines Screen Cocaine Screen U Marijuana (THC) Screen RPR Titer HIV 1&2 Antibody Screen HIV P24 Antigen Direct Antiglob Test 10/31/17 10/31/17 10/31/17 18:20 18:20 18:30 WBC RBC Hgb Hct MCV MCH MCHC RDW Plt Count MPV Absolute Neuts (auto) Total Counted Neutrophils % Neutrophils % (Manual) Band Neutrophils % Lymphocytes % Lymphocytes % (Manual) Monocytes % Monocytes % (Manual) Eosinophils % Basophils % Nucleated RBC % Metamyelocytes Platelet Estimate Schistocytes ESR Retic Count PT with INR INR PTT (Actin FS) Puncture Site ABG pH ABG pCO2 at Pt Temp ABG pO2 at Pt Temp ABG HCO3 ABG O2 Sat (Measured) ABG O2 Content ABG Base Excess Julio Cesar Test VBG pH POC VBG pCO2 POC VBG pO2 Mixed VBG HCO3 O2 Delivery Device Oxygen Flow Rate Sodium Potassium Chloride Carbon Dioxide Anion Gap BUN Creatinine Creat Clearance w eGFR Random Glucose Serum Osmolality Lactic Acid 1.4 Calcium Phosphorus Magnesium Total Bilirubin Direct Bilirubin GGT AST ALT Alkaline Phosphatase Ammonia LD Total Creatine Kinase Creatine Kinase Index CK-MB (CK-2) Troponin I 0.12 H Total Protein Albumin Urine Color [place] Urine Appearance Cloudy Urine pH 5.0 Ur Specific [place] 1.014 Urine Protein 2+ H Urine Glucose (UA) 1+ H Urine Ketones Negative Urine Blood 3+ H Urine Nitrite Negative Urine Bilirubin Negative Urine Urobilinogen Negative Ur Leukocyte Esterase Negative Urine WBC (Auto) 4 Urine RBC (Auto) 5 Urine Bacteria Moderate Urine Osmolality U Random Total Protein Ur Random Sodium Ur Random Potassium Ur Random Chloride Ur Random Urea Nitrogn Urine Creatinine Urine Potassium CSF Appearance CSF Color CSF WBC CSF RBC CSF Neutrophils CSF Lymphocytes CSF Eosinophils CSF Basophils CSF Macrophages CSF Plasma Cells CSF Diff Comment CSF Comment CSF Glucose CSF Total Protein Salicylates Opiates Screen Methadone Screen Barbiturate Screen Phencyclidine Screen Ur Amphetamines Screen MDMA (Ecstasy) Screen Benzodiazepines Screen Cocaine Screen U Marijuana (THC) Screen RPR Titer HIV 1&2 Antibody Screen HIV P24 Antigen Direct Antiglob Test 10/31/17 10/31/17 10/31/17 18:30 21:21 21:21 WBC RBC Hgb Hct MCV MCH MCHC RDW Plt Count MPV Absolute Neuts (auto) Total Counted Neutrophils % Neutrophils % (Manual) Band Neutrophils % Lymphocytes % Lymphocytes % (Manual) Monocytes % Monocytes % (Manual) Eosinophils % Basophils % Nucleated RBC % Metamyelocytes Platelet Estimate Schistocytes ESR Retic Count PT with INR INR PTT (Actin FS) Puncture Site ABG pH ABG pCO2 at Pt Temp ABG pO2 at Pt Temp ABG HCO3 ABG O2 Sat (Measured) ABG O2 Content ABG Base Excess Julio Cesar Test VBG pH POC VBG pCO2 POC VBG pO2 Mixed VBG HCO3 O2 Delivery Device Oxygen Flow Rate Sodium Potassium Chloride Carbon Dioxide Anion Gap BUN Creatinine Creat Clearance w eGFR Random Glucose Serum Osmolality Lactic Acid 0.9 Calcium Phosphorus Magnesium Total Bilirubin Direct Bilirubin GGT AST ALT Alkaline Phosphatase Ammonia 32.89 H LD Total Creatine Kinase Creatine Kinase Index CK-MB (CK-2) Troponin I Total Protein Albumin Urine Color Urine Appearance Urine pH Ur Specific [place] Urine Protein Urine Glucose (UA) Urine Ketones Urine Blood Urine Nitrite Urine Bilirubin Urine Urobilinogen Ur Leukocyte Esterase Urine WBC (Auto) Urine RBC (Auto) Urine Bacteria Urine Osmolality U Random Total Protein Ur Random Sodium Ur Random Potassium Ur Random Chloride Ur Random Urea Nitrogn Urine Creatinine Urine Potassium CSF Appearance CSF Color CSF WBC CSF RBC CSF Neutrophils CSF Lymphocytes CSF Eosinophils CSF Basophils CSF Macrophages CSF Plasma Cells CSF Diff Comment CSF Comment CSF Glucose CSF Total Protein Salicylates Opiates Screen Negative Methadone Screen Negative Barbiturate Screen Negative Phencyclidine Screen Negative Ur Amphetamines Screen Negative MDMA (Ecstasy) Screen Negative Benzodiazepines Screen Negative Cocaine Screen Negative U Marijuana (THC) Screen Positive RPR Titer HIV 1&2 Antibody Screen HIV P24 Antigen Direct Antiglob Test 10/31/17 10/31/17 10/31/17 21:21 23:30 23:30 WBC RBC Hgb Hct MCV MCH MCHC RDW Plt Count MPV Absolute Neuts (auto) Total Counted Neutrophils % Neutrophils % (Manual) Band Neutrophils % Lymphocytes % Lymphocytes % (Manual) Monocytes % Monocytes % (Manual) Eosinophils % Basophils % Nucleated RBC % Metamyelocytes Platelet Estimate Schistocytes ESR Retic Count PT with INR INR PTT (Actin FS) Puncture Site ABG pH ABG pCO2 at Pt Temp ABG pO2 at Pt Temp ABG HCO3 ABG O2 Sat (Measured) ABG O2 Content ABG Base Excess Julio Cesar Test VBG pH POC VBG pCO2 POC VBG pO2 Mixed VBG HCO3 O2 Delivery Device Oxygen Flow Rate Sodium Potassium Chloride Carbon Dioxide Anion Gap BUN Creatinine Creat Clearance w eGFR Random Glucose Serum Osmolality Lactic Acid Calcium Phosphorus Magnesium Total Bilirubin Direct Bilirubin GGT AST ALT Alkaline Phosphatase Ammonia LD Total Creatine Kinase Creatine Kinase Index CK-MB (CK-2) Troponin I Total Protein Albumin Urine Color Urine Appearance Urine pH Ur Specific [place] Urine Protein Urine Glucose (UA) Urine Ketones Urine Blood Urine Nitrite Urine Bilirubin Urine Urobilinogen Ur Leukocyte Esterase Urine WBC (Auto) Urine RBC (Auto) Urine Bacteria Urine Osmolality U Random Total Protein Ur Random Sodium Ur Random Potassium Ur Random Chloride Ur Random Urea Nitrogn Urine Creatinine Urine Potassium CSF Appearance Clear Clear CSF Color [place] Colorless CSF WBC 0 0 CSF RBC 2112 19 CSF Neutrophils No Result Required. No Result Required. CSF Lymphocytes No Result Required. No Result Required. CSF Eosinophils No Result Required. No Result Required. CSF Basophils No Result Required. No Result Required. CSF Macrophages No Result Required. No Result Required. CSF Plasma Cells No Result Required. No Result Required. CSF Diff Comment No Result Required. CSF Comment No Result Required. CSF Glucose 73 No Result Required. CSF Total Protein 35 No Result Required. Salicylates Opiates Screen Methadone Screen Barbiturate Screen Phencyclidine Screen Ur Amphetamines Screen MDMA (Ecstasy) Screen Benzodiazepines Screen Cocaine Screen U Marijuana (THC) Screen RPR Titer Nonreactive HIV 1&2 Antibody Screen HIV P24 Antigen Direct Antiglob Test 11/01/17 11/01/17 11/01/17 02:44 07:50 07:50 WBC 4.9 RBC 4.26 Hgb 12.9 Hct 37.2 MCV 87.4 MCH 30.2 MCHC 34.6 RDW 13.2 Plt Count 108 L D MPV 8.3 Absolute Neuts (auto) 4.1 Total Counted 100 Neutrophils % 83.9 H Neutrophils % (Manual) 45.0 Band Neutrophils % 31.0 Lymphocytes % 8.1 D Lymphocytes % (Manual) 11.0 Monocytes % 7.7 Monocytes % (Manual) 8 Eosinophils % 0.1 D Basophils % 0.2 Nucleated RBC % 0 Metamyelocytes 5 H Platelet Estimate Slt decrease Schistocytes Rare ESR Retic Count PT with INR INR PTT (Actin FS) Puncture Site ABG pH ABG pCO2 at Pt Temp ABG pO2 at Pt Temp ABG HCO3 ABG O2 Sat (Measured) ABG O2 Content ABG Base Excess Julio Cesar Test VBG pH POC VBG pCO2 POC VBG pO2 Mixed VBG HCO3 O2 Delivery Device Oxygen Flow Rate Sodium 131 L Potassium 3.7 Chloride 99 Carbon Dioxide 17 L Anion Gap 15 BUN 65 H Creatinine 8.6 H* Creat Clearance w eGFR 7.28 Random Glucose 113 H Serum Osmolality Lactic Acid Calcium 6.7 L* Phosphorus 5.0 H Magnesium 2.6 H Total Bilirubin 1.7 H Direct Bilirubin 1.4 H GGT AST 371 H D ALT 214 H D Alkaline Phosphatase 65 D Ammonia LD Total 1744 H Creatine Kinase 54127 H Creatine Kinase Index 0.0 CK-MB (CK-2) 10.95 H Troponin I 0.18 H D Total Protein 5.6 L Albumin 2.1 L Urine Color Urine Appearance Urine pH Ur Specific [place] Urine Protein Urine Glucose (UA) Urine Ketones Urine Blood Urine Nitrite Urine Bilirubin Urine Urobilinogen Ur Leukocyte Esterase Urine WBC (Auto) Urine RBC (Auto) Urine Bacteria Urine Osmolality U Random Total Protein 302 H Ur Random Sodium 24 Ur Random Potassium Ur Random Chloride Ur Random Urea Nitrogn Urine Creatinine 244.0 Urine Potassium CSF Appearance CSF Color CSF WBC CSF RBC CSF Neutrophils CSF Lymphocytes CSF Eosinophils CSF Basophils CSF Macrophages CSF Plasma Cells CSF Diff Comment CSF Comment CSF Glucose CSF Total Protein Salicylates < 4.0 Opiates Screen Methadone Screen Barbiturate Screen Phencyclidine Screen Ur Amphetamines Screen MDMA (Ecstasy) Screen Benzodiazepines Screen Cocaine Screen U Marijuana (THC) Screen RPR Titer HIV 1&2 Antibody Screen HIV P24 Antigen Direct Antiglob Test 11/01/17 11/01/17 11/01/17 07:50 07:50 07:50 WBC RBC Hgb Hct MCV MCH MCHC RDW Plt Count MPV Absolute Neuts (auto) Total Counted Neutrophils % Neutrophils % (Manual) Band Neutrophils % Lymphocytes % Lymphocytes % (Manual) Monocytes % Monocytes % (Manual) Eosinophils % Basophils % Nucleated RBC % Metamyelocytes Platelet Estimate Schistocytes ESR Retic Count 0.52 PT with INR 12.80 INR 1.13 H PTT (Actin FS) Puncture Site ABG pH ABG pCO2 at Pt Temp ABG pO2 at Pt Temp ABG HCO3 ABG O2 Sat (Measured) ABG O2 Content ABG Base Excess Julio Cesar Test VBG pH POC VBG pCO2 POC VBG pO2 Mixed VBG HCO3 O2 Delivery Device Oxygen Flow Rate Sodium Potassium Chloride Carbon Dioxide Anion Gap BUN Creatinine Creat Clearance w eGFR Random Glucose Serum Osmolality Lactic Acid Calcium Phosphorus Magnesium Total Bilirubin Direct Bilirubin GGT AST ALT Alkaline Phosphatase Ammonia LD Total Creatine Kinase Creatine Kinase Index CK-MB (CK-2) Troponin I Cancelled Total Protein Albumin Urine Color Urine Appearance Urine pH Ur Specific [place] Urine Protein Urine Glucose (UA) Urine Ketones Urine Blood Urine Nitrite Urine Bilirubin Urine Urobilinogen Ur Leukocyte Esterase Urine WBC (Auto) Urine RBC (Auto) Urine Bacteria Urine Osmolality U Random Total Protein Ur Random Sodium Ur Random Potassium Ur Random Chloride Ur Random Urea Nitrogn Urine Creatinine Urine Potassium CSF Appearance CSF Color CSF WBC CSF RBC CSF Neutrophils CSF Lymphocytes CSF Eosinophils CSF Basophils CSF Macrophages CSF Plasma Cells CSF Diff Comment CSF Comment CSF Glucose CSF Total Protein Salicylates Opiates Screen Methadone Screen Barbiturate Screen Phencyclidine Screen Ur Amphetamines Screen MDMA (Ecstasy) Screen Benzodiazepines Screen Cocaine Screen U Marijuana (THC) Screen RPR Titer HIV 1&2 Antibody Screen HIV P24 Antigen Direct Antiglob Test 11/01/17 11/01/17 11/01/17 07:50 09:55 09:55 WBC RBC Hgb Hct MCV MCH MCHC RDW Plt Count MPV Absolute Neuts (auto) Total Counted Neutrophils % Neutrophils % (Manual) Band Neutrophils % Lymphocytes % Lymphocytes % (Manual) Monocytes % Monocytes % (Manual) Eosinophils % Basophils % Nucleated RBC % Metamyelocytes Platelet Estimate Schistocytes ESR 71 H Retic Count PT with INR INR PTT (Actin FS) Puncture Site ABG pH ABG pCO2 at Pt Temp ABG pO2 at Pt Temp ABG HCO3 ABG O2 Sat (Measured) ABG O2 Content ABG Base Excess Julio Cesar Test VBG pH POC VBG pCO2 POC VBG pO2 Mixed VBG HCO3 O2 Delivery Device Oxygen Flow Rate Sodium Potassium Chloride Carbon Dioxide Anion Gap BUN Creatinine Creat Clearance w eGFR Random Glucose Serum Osmolality Lactic Acid Calcium Phosphorus Magnesium Total Bilirubin Direct Bilirubin GGT AST ALT Alkaline Phosphatase Ammonia LD Total Creatine Kinase Creatine Kinase Index CK-MB (CK-2) Troponin I Total Protein Albumin Urine Color Urine Appearance Urine pH Ur Specific [place] Urine Protein Urine Glucose (UA) Urine Ketones Urine Blood Urine Nitrite Urine Bilirubin Urine Urobilinogen Ur Leukocyte Esterase Urine WBC (Auto) Urine RBC (Auto) Urine Bacteria Urine Osmolality 305 U Random Total Protein 275 H Ur Random Sodium 32 Ur Random Potassium 17.5 Ur Random Chloride 17 Ur Random Urea Nitrogn 351 Urine Creatinine 158.0 Urine Potassium Cancelled CSF Appearance CSF Color CSF WBC CSF RBC CSF Neutrophils CSF Lymphocytes CSF Eosinophils CSF Basophils CSF Macrophages CSF Plasma Cells CSF Diff Comment CSF Comment CSF Glucose CSF Total Protein Salicylates Opiates Screen Methadone Screen Barbiturate Screen Phencyclidine Screen Ur Amphetamines Screen MDMA (Ecstasy) Screen Benzodiazepines Screen Cocaine Screen U Marijuana (THC) Screen RPR Titer HIV 1&2 Antibody Screen HIV P24 Antigen Direct Antiglob Test 11/01/17 11/01/17 11/01/17 10:10 10:31 10:31 WBC 5.0 RBC 4.38 Hgb 13.1 Hct 38.5 MCV 87.8 MCH 30.0 MCHC 34.2 RDW 13.4 Plt Count 110 L MPV 7.9 Absolute Neuts (auto) 4.0 Total Counted Neutrophils % 80.9 Neutrophils % (Manual) Band Neutrophils % Lymphocytes % 10.3 D Lymphocytes % (Manual) Monocytes % 8.7 Monocytes % (Manual) Eosinophils % 0.0 D Basophils % 0.1 Nucleated RBC % 0 Metamyelocytes Platelet Estimate Schistocytes ESR Retic Count PT with INR INR PTT (Actin FS) Puncture Site ABG pH ABG pCO2 at Pt Temp ABG pO2 at Pt Temp ABG HCO3 ABG O2 Sat (Measured) ABG O2 Content ABG Base Excess Julio Cesar Test VBG pH POC VBG pCO2 POC VBG pO2 Mixed VBG HCO3 O2 Delivery Device Oxygen Flow Rate Sodium Potassium Chloride Carbon Dioxide Anion Gap BUN Creatinine Creat Clearance w eGFR Random Glucose Serum Osmolality Lactic Acid Calcium Phosphorus Magnesium Total Bilirubin Direct Bilirubin GGT AST ALT Alkaline Phosphatase Ammonia LD Total Creatine Kinase Creatine Kinase Index CK-MB (CK-2) Troponin I Total Protein Albumin Urine Color Urine Appearance Urine pH Ur Specific [place] Urine Protein Urine Glucose (UA) Urine Ketones Urine Blood Urine Nitrite Urine Bilirubin Urine Urobilinogen Ur Leukocyte Esterase Urine WBC (Auto) Urine RBC (Auto) Urine Bacteria Urine Osmolality U Random Total Protein Ur Random Sodium Ur Random Potassium Ur Random Chloride Ur Random Urea Nitrogn Urine Creatinine Urine Potassium CSF Appearance CSF Color CSF WBC CSF RBC CSF Neutrophils CSF Lymphocytes CSF Eosinophils CSF Basophils CSF Macrophages CSF Plasma Cells CSF Diff Comment CSF Comment CSF Glucose CSF Total Protein Salicylates Opiates Screen Negative Methadone Screen Negative Barbiturate Screen Negative Phencyclidine Screen Negative Ur Amphetamines Screen Negative MDMA (Ecstasy) Screen Negative Benzodiazepines Screen Negative Cocaine Screen Negative U Marijuana (THC) Screen Positive RPR Titer HIV 1&2 Antibody Screen HIV P24 Antigen Direct Antiglob Test Negative 11/01/17 11/01/17 11/01/17 10:31 10:31 10:31 WBC RBC Hgb Hct MCV MCH MCHC RDW Plt Count MPV Absolute Neuts (auto) Total Counted Neutrophils % Neutrophils % (Manual) Band Neutrophils % Lymphocytes % Lymphocytes % (Manual) Monocytes % Monocytes % (Manual) Eosinophils % Basophils % Nucleated RBC % Metamyelocytes Platelet Estimate Schistocytes ESR Retic Count PT with INR INR PTT (Actin FS) Puncture Site ABG pH ABG pCO2 at Pt Temp ABG pO2 at Pt Temp ABG HCO3 ABG O2 Sat (Measured) ABG O2 Content ABG Base Excess Julio Cesar Test VBG pH POC VBG pCO2 POC VBG pO2 Mixed VBG HCO3 O2 Delivery Device Oxygen Flow Rate Sodium 131 L Potassium 3.7 Chloride 99 Carbon Dioxide 18 L Anion Gap 14 BUN 67 H Creatinine 8.8 H* Creat Clearance w eGFR 7.09 Random Glucose 100 Serum Osmolality 296 Lactic Acid Calcium 6.9 L* Phosphorus Magnesium Total Bilirubin 1.9 H Direct Bilirubin GGT AST 382 H ALT 224 H Alkaline Phosphatase 68 Ammonia LD Total Creatine Kinase Creatine Kinase Index CK-MB (CK-2) Troponin I Total Protein 5.9 L Albumin 2.2 L Urine Color Urine Appearance Urine pH Ur Specific [place] Urine Protein Urine Glucose (UA) Urine Ketones Urine Blood Urine Nitrite Urine Bilirubin Urine Urobilinogen Ur Leukocyte Esterase Urine WBC (Auto) Urine RBC (Auto) Urine Bacteria Urine Osmolality U Random Total Protein Ur Random Sodium Ur Random Potassium Ur Random Chloride Ur Random Urea Nitrogn Urine Creatinine Urine Potassium CSF Appearance CSF Color CSF WBC CSF RBC CSF Neutrophils CSF Lymphocytes CSF Eosinophils CSF Basophils CSF Macrophages CSF Plasma Cells CSF Diff Comment CSF Comment CSF Glucose CSF Total Protein Salicylates < 4.0 Opiates Screen Methadone Screen Barbiturate Screen Phencyclidine Screen Ur Amphetamines Screen MDMA (Ecstasy) Screen Benzodiazepines Screen Cocaine Screen U Marijuana (THC) Screen RPR Titer HIV 1&2 Antibody Screen Negative HIV P24 Antigen Negative Direct Antiglob Test 11/01/17 11/01/17 12:50 12:59 WBC RBC Hgb Hct MCV MCH MCHC RDW Plt Count MPV Absolute Neuts (auto) Total Counted Neutrophils % Neutrophils % (Manual) Band Neutrophils % Lymphocytes % Lymphocytes % (Manual) Monocytes % Monocytes % (Manual) Eosinophils % Basophils % Nucleated RBC % Metamyelocytes Platelet Estimate Schistocytes ESR Retic Count PT with INR INR PTT (Actin FS) Puncture Site Right radial ABG pH 7.36 ABG pCO2 at Pt Temp 28.9 L ABG pO2 at Pt Temp 86.8 ABG HCO3 16.0 L ABG O2 Sat (Measured) 96.5 ABG O2 Content 18.2 ABG Base Excess -7.7 L Julio Cesar Test Positive VBG pH POC VBG pCO2 POC VBG pO2 Mixed VBG HCO3 O2 Delivery Device Room air Oxygen Flow Rate 21% Sodium 134 L Potassium 3.9 Chloride 101 Carbon Dioxide 17 L Anion Gap 16 BUN 69 H Creatinine 8.7 H* Creat Clearance w eGFR 7.18 Random Glucose 101 Serum Osmolality Lactic Acid Calcium 6.8 L* Phosphorus Magnesium Total Bilirubin Direct Bilirubin GGT AST ALT Alkaline Phosphatase Ammonia LD Total Creatine Kinase Creatine Kinase Index CK-MB (CK-2) Troponin I Total Protein Albumin Urine Color Urine Appearance Urine pH Ur Specific [place] Urine Protein Urine Glucose (UA) Urine Ketones Urine Blood Urine Nitrite Urine Bilirubin Urine Urobilinogen Ur Leukocyte Esterase Urine WBC (Auto) Urine RBC (Auto) Urine Bacteria Urine Osmolality U Random Total Protein Ur Random Sodium Ur Random Potassium Ur Random Chloride Ur Random Urea Nitrogn Urine Creatinine Urine Potassium CSF Appearance CSF Color CSF WBC CSF RBC CSF Neutrophils CSF Lymphocytes CSF Eosinophils CSF Basophils CSF Macrophages CSF Plasma Cells CSF Diff Comment CSF Comment CSF Glucose CSF Total Protein Salicylates Opiates Screen Methadone Screen Barbiturate Screen Phencyclidine Screen Ur Amphetamines Screen MDMA (Ecstasy) Screen Benzodiazepines Screen Cocaine Screen U Marijuana (THC) Screen RPR Titer HIV 1&2 Antibody Screen HIV P24 Antigen Direct Antiglob Test Active Medications Generic Name Dose Route Start Last Admin Trade Name Freq PRN Reason Stop Dose Admin Chlorhexidine Gluconate 1 applic 11/01/17 22:00 Hibiclens For Decolonization - TP HS ODILIA Heparin Sodium (Porcine) 5,000 unit 11/01/17 06:00 11/01/17 06:51 Heparin - SQ 5,000 unit TID ODILIA Administration Sodium Chloride 1,000 mls @ 150 mls/hr 11/01/17 17:55 Normal Saline - IV ASDIR ODILIA Mupirocin 1 applic 11/01/17 22:00 Bactroban Ointment (For Decolonization) - NS 11/06/17 21:59 BID ODILIA Rifaximin 550 mg 10/31/17 23:45 11/01/17 11:15 Xifaxan - PO 550 mg BID ODILIA Administration UA: 2+ protein, 3+ blood with minimal RBC's, 4 WBC's Tox screen: +Marijuana, <4.0 Salicylates IMAGING: Head CT: No evidence of acute intracranial hemmorhage, edema, midline shift, mass effect, or skull fx. No CT evidence of acute territorial infarction. Abd U/S: Borderline hepatosplenomegaly w/ no evidence of acute pathology within the abdomen. Liver is borderline enlarged measuring 17.6 cm in craniocaudad dimension. It is homogenous in teexture. There is an echogenic mass within the L lobe measuring 2.cm. This is consistent w/ a hemangioma. No additional intrahepatic masses are identified. The portal flow is documented within the main portal vein. CT Abd/Pel w/o contrast: 1. Extensive L lower lobe consolidation suspicious for acute pna. There is a lesser degree of consolidation/atelectasis within the R lung base. 2. Limited study w/ no gross evidence of acute pathology within the abdomen or pelvis. EMG: pending report ASSESSMENT/PLAN: 32M w/ no significant pmhx presented to the hospital with AMS per family, persistent diarrhea, as well as bowel incontinence since . #Pneumonia 2/2 to Legionella; Presumptive +Legionella Ag. -In ED, Vanc/Zosyn/Flagyl given -Per ID:1 dose of Levofloxacin 750 mg @ 100cc/hr given -f/u ID recs #AMS likely 2/2 Legionella infection, r/o neuro etiology -f/u CSF culture to r/o meningitis; 2 gm rocephin given for coverage immediately following LP -Per Neuro: Consider repeating CSF to check protein again. f/u EMG results. Neuro check Q1H. Aspiration precautions. -blood cx (-)x24h -CSF gram stain: No organisms seen. No polymorphonuclear WBC observed. -urine cx pending #Acute Renal Failure likely 2/2 Legionella infection vs. HUS/TTP vs. Rhabdo; Cr persistently elevated 8.7-8.8. -Per nephro (Dr. Edmondson): Cont aggressive hydration with NS. FeNa is 0.65%, and pt with subnephrotic proteinuria. LDH very elevated, CPK pending. Possible dialysis in AM. -F/u ADAMTS-13, C-anca, P-anca, immunology panel pending #[place]; [place] [address] -continue NS 1000cc @ 150cc/hr -f/u repeat CPK, urine myoglobin #Transaminitis; AST 354, ALT 219. -Unlikely salicylate toxicity Tox screen has low levels of salicylates -less likely caused by shock liver as pt has maintained BP -Hepatitis panel pending; HIV 1&2, HIV p24 negative -In the ED, Lactulose and Rifaximin were given due to possible hepatic encephalopathy. IV mannitol was also given in case of cerebral edema caused by hepatic encephalopathy -f/u CMP #Mild thrombocytopenia -recheck CBC in AM. -Per Heme: HUS was considered as patient was febrile, had AMS, renal failure, and mild thrombocytopenia. No schistocytes were seen on peripheral smear. Mild thrombocytopenia noted may be secondary to sepsis, liver disease, hypersplenism. -F/u D Bili, haptoglobin, fibrinogen, and LDH. #Mild troponinemia -Possibly due to demand ischemia with sepsis -ECG noted: sinus rhythm, no acute ST elevations or depressions #DVT Prophylaxis -Heparin 5000 units SQ TID #FEN -cont NS 1000cc @ 150cc/hr -serial CMP Q6H, possible HD in AM -NPO until mental status improves Disposition -cont to monitor in ICU Visit type - Emergency Visit Emergency Visit: Yes ED Registration Date: 11/01/17 Care time: The patient presented to the Emergency Department on the above date and was hospitalized for further evaluation of their emergent condition. - New Patient This patient is new to me today: Yes Date on this admission: 11/01/17 - Critical Care Critical Care patient: Yes Total Critical Care Time (in minutes): 40 Critical Care Statement: The care of this patient involved high complexity decision making to prevent further life threatening deterioration of the patient 's condition and/or to evaluate & treat vital organ system(s) failure or risk of failure.
[2017-11-01] MEDS: SODIUM CHLORIDE 1,000 ML IV SCH (18:25)
--- NOTE | 2017-11-01 18:37 | PN ---
Teaching Attending Note Name of Resident: Nicci Gordon ATTENDING PHYSICIAN STATEMENT I saw and evaluated the patient. I reviewed the resident's note and discussed the case with the resident. I agree with the resident's findings and plan as documented. SUBJECTIVE: Patient is lying in bed, arousable, unable to answer any questions. OBJECTIVE: Vital Signs Temperature 98.6 F 11/01/17 11:55 Pulse Rate 80 11/01/17 11:55 Respiratory Rate 18 11/01/17 11:55 Blood Pressure 130/86 11/01/17 11:55 O2 Sat by Pulse Oximetry (%) 100 11/01/17 11:55 CBCD WBC 5.0 K/mm3 (4.0-10.0) 11/01/17 10:31 RBC 4.38 M/mm3 (4.00-5.60) 11/01/17 10:31 Hgb 13.1 GM/dL (11.7-16.9) 11/01/17 10:31 Hct 38.5 % (35.4-49) 11/01/17 10:31 MCV 87.8 fl (80-96) 11/01/17 10:31 MCHC 34.2 g/dl (32.0-35.9) 11/01/17 10:31 RDW 13.4 % (11.9-15.9) 11/01/17 10:31 Plt Count 110 K/MM3 (134-434) L 11/01/17 10:31 MPV 7.9 fl (7.5-11.1) 11/01/17 10:31 CMP Sodium 134 mmol/L (136-145) L 11/01/17 12:59 Potassium 3.9 mmol/L (3.5-5.1) 11/01/17 12:59 Chloride 101 mmol/L (98-107) 11/01/17 12:59 Carbon Dioxide 17 mmol/L (21-32) L 11/01/17 12:59 Anion Gap 16 (8-16) 11/01/17 12:59 BUN 69 mg/dL (7-18) H 11/01/17 12:59 Creatinine 8.7 mg/dL (0.7-1.3) H* 11/01/17 12:59 Creat Clearance w eGFR 7.18 (>60) 11/01/17 12:59 Random Glucose 101 mg/dL (74-106) 11/01/17 12:59 Calcium 6.8 mg/dL (8.5-10.1) L* 11/01/17 12:59 Total Bilirubin 1.9 mg/dL (0.2-1.0) H 11/01/17 10:31 AST 382 U/L (15-37) H 11/01/17 10:31 ALT 224 U/L (12-78) H 11/01/17 10:31 Alkaline Phosphatase 68 U/L (45-117) 11/01/17 10:31 Total Protein 5.9 g/dl (6.4-8.2) L 11/01/17 10:31 Albumin 2.2 g/dl (3.4-5.0) L 11/01/17 10:31 CARDIAC ENZYMES Creatine Kinase 35863 IU/L (39-308) H 11/01/17 07:50 Troponin I 0.18 ng/ml (0.00-0.05) H D 11/01/17 07:50 Current Medications Generic Name Dose Route Start Last Admin Trade Name Madhuq PRN Reason Stop Dose Admin Chlorhexidine Gluconate 1 applic 11/01/17 22:00 Hibiclens For Decolonization - TP HS ODILIA Heparin Sodium (Porcine) 5,000 unit 11/01/17 06:00 11/01/17 15:45 Heparin - SQ 5,000 unit TID ODILIA Administration Sodium Chloride 1,000 mls @ 150 mls/hr 11/01/17 17:55 11/01/17 18:25 Normal Saline - IV 150 mls/hr ASDIR ODILIA Administration Mupirocin 1 applic 11/01/17 22:00 Bactroban Ointment (For Decolonization) - NS 11/06/17 21:59 BID ODILIA Rifaximin 550 mg 10/31/17 23:45 11/01/17 11:15 Xifaxan - PO 550 mg BID ODILIA Administration Home Medications Medication Instructions Recorded NK [No Known Home Medication] 10/31/17 Microbiology 10/31/17 18:05 Blood - Peripheral Venous Blood Culture - Preliminary NO GROWTH OBTAINED AFTER 24 HOURS, INCUBATION TO CONTINUE FOR 4 DAYS. 10/31/17 18:00 Blood - Peripheral Venous Blood Culture - Preliminary NO GROWTH OBTAINED AFTER 24 HOURS, INCUBATION TO CONTINUE FOR 4 DAYS. 11/01/17 09:00 Urine - Urine Sunshine Legionella Antigen - Final 11/01/17 09:00 Urine - Urine Sunshine Streptococcus pneumoniae Antigen (M - Final 10/31/17 23:30 Cerebral Spinal Fluid - Lumbar Puncture Gram Stain - Final Urine Test Results Urine Color [place] 10/31/17 18:30 Urine Appearance Cloudy 10/31/17 18:30 Urine pH 5.0 (5.0-8.0) 10/31/17 18:30 Ur Specific [place] 1.014 (1.001-1.035) 10/31/17 18:30 Urine Protein 2+ (NEGATIVE) H 10/31/17 18:30 Urine Glucose (UA) 1+ (NEGATIVE) H 10/31/17 18:30 Urine Ketones Negative (NEGATIVE) 10/31/17 18:30 Urine Blood 3+ (NEGATIVE) H 10/31/17 18:30 Urine Nitrite Negative (NEGATIVE) 10/31/17 18:30 Urine Bilirubin Negative (<2.0 mg/dL) 10/31/17 18:30 Ur Leukocyte Esterase Negative (NEGATIVE) 10/31/17 18:30 Urine Bacteria Moderate /hpf (NONE SEEN) 10/31/17 18:30 Intake & Output 10/29/17 10/30/17 10/31/17 11/01/17 23:59 23:59 23:59 23:59 Intake Total 1025 Output Total 100 Balance 925 Weight 86.183 kg Laboratory Tests 10/31/17 11/01/17 18:30 10:10 Opiates Screen Negative Negative Methadone Screen Negative Negative Barbiturate Screen Negative Negative Phencyclidine Screen Negative Negative Ur Amphetamines Screen Negative Negative MDMA (Ecstasy) Screen Negative Negative Benzodiazepines Screen Negative Negative Cocaine Screen Negative Negative U Marijuana (THC) Screen Positive Positive Laboratory Tests 10/31/17 10/31/17 10/31/17 18:20 18:20 18:30 Schistocytes ESR Retic Count Haptoglobin ABG pH ABG pCO2 at Pt Temp ABG pO2 at Pt Temp ABG HCO3 ABG O2 Sat (Measured) ABG O2 Content ABG Base Excess VBG pH 7.47 H POC VBG pCO2 26.9 L POC VBG pO2 66.4 H Mixed VBG HCO3 19.2 Sodium 131 L Potassium Creatinine Calcium Total Bilirubin Direct Bilirubin AST ALT LD Total Creatine Kinase CK-MB (CK-2) Troponin I Total Protein Urine Bacteria Moderate Urine Osmolality U Random Total Protein Ur Random Sodium Ur Random Potassium Ur Random Chloride Ur Random Urea Nitrogn Urine Creatinine CSF Appearance CSF Color CSF WBC CSF RBC CSF Neutrophils CSF Lymphocytes CSF Eosinophils CSF Basophils CSF Macrophages CSF Plasma Cells CSF Diff Comment CSF Comment CSF Glucose CSF Total Protein Opiates Screen Methadone Screen Barbiturate Screen Phencyclidine Screen Ur Amphetamines Screen MDMA (Ecstasy) Screen Benzodiazepines Screen Cocaine Screen U Marijuana (THC) Screen SHARAN M-Naveed AJ Screen c-ANCA Proteinase 3 (PR3) p-ANCA Atypical p-ANCA Myeloperoxidase Ab 10/31/17 10/31/17 10/31/17 18:30 23:30 23:30 Schistocytes ESR Retic Count Haptoglobin ABG pH ABG pCO2 at Pt Temp ABG pO2 at Pt Temp ABG HCO3 ABG O2 Sat (Measured) ABG O2 Content ABG Base Excess VBG pH POC VBG pCO2 POC VBG pO2 Mixed VBG HCO3 Sodium Potassium Creatinine Calcium Total Bilirubin Direct Bilirubin AST ALT LD Total Creatine Kinase CK-MB (CK-2) Troponin I Total Protein Urine Bacteria Urine Osmolality U Random Total Protein Ur Random Sodium Ur Random Potassium Ur Random Chloride Ur Random Urea Nitrogn Urine Creatinine CSF Appearance Clear Clear CSF Color [place] Colorless CSF WBC 0 0 CSF RBC 2112 19 CSF Neutrophils No Result Required. No Result Required. CSF Lymphocytes No Result Required. No Result Required. CSF Eosinophils No Result Required. No Result Required. CSF Basophils No Result Required. No Result Required. CSF Macrophages No Result Required. No Result Required. CSF Plasma Cells No Result Required. No Result Required. CSF Diff Comment No Result Required. CSF Comment No Result Required. CSF Glucose 73 No Result Required. CSF Total Protein 35 No Result Required. Opiates Screen Negative Methadone Screen Negative Barbiturate Screen Negative Phencyclidine Screen Negative Ur Amphetamines Screen Negative MDMA (Ecstasy) Screen Negative Benzodiazepines Screen Negative Cocaine Screen Negative U Marijuana (THC) Screen Positive SHARAN M-Naveed AJ Screen c-ANCA Proteinase 3 (PR3) p-ANCA Atypical p-ANCA Myeloperoxidase Ab 11/01/17 11/01/17 11/01/17 02:44 03:27 07:50 Schistocytes Rare ESR Retic Count Haptoglobin Pending ABG pH ABG pCO2 at Pt Temp ABG pO2 at Pt Temp ABG HCO3 ABG O2 Sat (Measured) ABG O2 Content ABG Base Excess VBG pH POC VBG pCO2 POC VBG pO2 Mixed VBG HCO3 Sodium Potassium Creatinine Calcium Total Bilirubin Direct Bilirubin AST ALT LD Total Creatine Kinase CK-MB (CK-2) Troponin I Total Protein Urine Bacteria Urine Osmolality U Random Total Protein Ur Random Sodium 24 Ur Random Potassium Ur Random Chloride Ur Random Urea Nitrogn Urine Creatinine 244.0 CSF Appearance CSF Color CSF WBC CSF RBC CSF Neutrophils CSF Lymphocytes CSF Eosinophils CSF Basophils CSF Macrophages CSF Plasma Cells CSF Diff Comment CSF Comment CSF Glucose CSF Total Protein Opiates Screen Methadone Screen Barbiturate Screen Phencyclidine Screen Ur Amphetamines Screen MDMA (Ecstasy) Screen Benzodiazepines Screen Cocaine Screen U Marijuana (THC) Screen SHARAN M-Naveed AJ Screen c-ANCA Proteinase 3 (PR3) p-ANCA Atypical p-ANCA Myeloperoxidase Ab 11/01/17 11/01/17 11/01/17 07:50 07:50 07:50 Schistocytes ESR Retic Count Haptoglobin ABG pH ABG pCO2 at Pt Temp ABG pO2 at Pt Temp ABG HCO3 ABG O2 Sat (Measured) ABG O2 Content ABG Base Excess VBG pH POC VBG pCO2 POC VBG pO2 Mixed VBG HCO3 Sodium 131 L Potassium 3.7 Creatinine 8.6 H* Calcium 6.7 L* Total Bilirubin 1.7 H Direct Bilirubin 1.4 H AST 371 H D ALT 214 H D LD Total 1744 H Creatine Kinase 95805 H CK-MB (CK-2) 10.95 H Troponin I 0.18 H D Total Protein 5.6 L Urine Bacteria Urine Osmolality U Random Total Protein Ur Random Sodium Ur Random Potassium Ur Random Chloride Ur Random Urea Nitrogn Urine Creatinine CSF Appearance CSF Color CSF WBC CSF RBC CSF Neutrophils CSF Lymphocytes CSF Eosinophils CSF Basophils CSF Macrophages CSF Plasma Cells CSF Diff Comment CSF Comment CSF Glucose CSF Total Protein Opiates Screen Methadone Screen Barbiturate Screen Phencyclidine Screen Ur Amphetamines Screen MDMA (Ecstasy) Screen Benzodiazepines Screen Cocaine Screen U Marijuana (THC) Screen SHARAN M-Naveed AJ Screen Pending c-ANCA Pending Proteinase 3 (PR3) Pending p-ANCA Pending Atypical p-ANCA Pending Myeloperoxidase Ab Pending 11/01/17 11/01/17 11/01/17 07:50 07:50 07:50 Schistocytes ESR 71 H Retic Count 0.52 Haptoglobin ABG pH ABG pCO2 at Pt Temp ABG pO2 at Pt Temp ABG HCO3 ABG O2 Sat (Measured) ABG O2 Content ABG Base Excess VBG pH POC VBG pCO2 POC VBG pO2 Mixed VBG HCO3 Sodium Potassium Creatinine Calcium Total Bilirubin Direct Bilirubin AST ALT LD Total Creatine Kinase CK-MB (CK-2) Troponin I Total Protein Urine Bacteria Urine Osmolality U Random Total Protein Ur Random Sodium Ur Random Potassium Ur Random Chloride Ur Random Urea Nitrogn Urine Creatinine CSF Appearance CSF Color CSF WBC CSF RBC CSF Neutrophils CSF Lymphocytes CSF Eosinophils CSF Basophils CSF Macrophages CSF Plasma Cells CSF Diff Comment CSF Comment CSF Glucose CSF Total Protein Opiates Screen Methadone Screen Barbiturate Screen Phencyclidine Screen Ur Amphetamines Screen MDMA (Ecstasy) Screen Benzodiazepines Screen Cocaine Screen U Marijuana (THC) Screen SHARAN M-Naveed Pending AJ Screen c-ANCA Proteinase 3 (PR3) p-ANCA Atypical p-ANCA Myeloperoxidase Ab 11/01/17 11/01/17 11/01/17 09:55 09:55 10:10 Schistocytes ESR Retic Count Haptoglobin ABG pH ABG pCO2 at Pt Temp ABG pO2 at Pt Temp ABG HCO3 ABG O2 Sat (Measured) ABG O2 Content ABG Base Excess VBG pH POC VBG pCO2 POC VBG pO2 Mixed VBG HCO3 Sodium Potassium Creatinine Calcium Total Bilirubin Direct Bilirubin AST ALT LD Total Creatine Kinase CK-MB (CK-2) Troponin I Total Protein Urine Bacteria Urine Osmolality 305 U Random Total Protein 275 H Ur Random Sodium 32 Ur Random Potassium 17.5 Ur Random Chloride 17 Ur Random Urea Nitrogn 351 Urine Creatinine 158.0 CSF Appearance CSF Color CSF WBC CSF RBC CSF Neutrophils CSF Lymphocytes CSF Eosinophils CSF Basophils CSF Macrophages CSF Plasma Cells CSF Diff Comment CSF Comment CSF Glucose CSF Total Protein Opiates Screen Negative Methadone Screen Negative Barbiturate Screen Negative Phencyclidine Screen Negative Ur Amphetamines Screen Negative MDMA (Ecstasy) Screen Negative Benzodiazepines Screen Negative Cocaine Screen Negative U Marijuana (THC) Screen Positive SHARAN M-Naveed AJ Screen c-ANCA Proteinase 3 (PR3) p-ANCA Atypical p-ANCA Myeloperoxidase Ab 11/01/17 11/01/17 11/01/17 10:31 12:50 12:59 Schistocytes ESR Retic Count Haptoglobin ABG pH 7.36 ABG pCO2 at Pt Temp 28.9 L ABG pO2 at Pt Temp 86.8 ABG HCO3 16.0 L ABG O2 Sat (Measured) 96.5 ABG O2 Content 18.2 ABG Base Excess -7.7 L VBG pH POC VBG pCO2 POC VBG pO2 Mixed VBG HCO3 Sodium 131 L 134 L Potassium 3.7 3.9 Creatinine 8.7 H* Calcium 6.9 L* 6.8 L* Total Bilirubin 1.9 H Direct Bilirubin AST 382 H ALT 224 H LD Total Creatine Kinase CK-MB (CK-2) Troponin I Total Protein Urine Bacteria Urine Osmolality U Random Total Protein Ur Random Sodium Ur Random Potassium Ur Random Chloride Ur Random Urea Nitrogn Urine Creatinine CSF Appearance CSF Color CSF WBC CSF RBC CSF Neutrophils CSF Lymphocytes CSF Eosinophils CSF Basophils CSF Macrophages CSF Plasma Cells CSF Diff Comment CSF Comment CSF Glucose CSF Total Protein Opiates Screen Methadone Screen Barbiturate Screen Phencyclidine Screen Ur Amphetamines Screen MDMA (Ecstasy) Screen Benzodiazepines Screen Cocaine Screen U Marijuana (THC) Screen SHARAN M-Naveed AJ Screen c-ANCA Proteinase 3 (PR3) p-ANCA Atypical p-ANCA Myeloperoxidase Ab 11/01/17 18:00 Schistocytes ESR Retic Count Haptoglobin ABG pH ABG pCO2 at Pt Temp ABG pO2 at Pt Temp ABG HCO3 ABG O2 Sat (Measured) ABG O2 Content ABG Base Excess VBG pH POC VBG pCO2 POC VBG pO2 Mixed VBG HCO3 Sodium 131 L Potassium 4.2 Creatinine 8.9 H* Calcium 7.3 L Total Bilirubin 1.5 H Direct Bilirubin AST 354 H ALT 219 H LD Total Creatine Kinase CK-MB (CK-2) Troponin I Total Protein Urine Bacteria Urine Osmolality U Random Total Protein Ur Random Sodium Ur Random Potassium Ur Random Chloride Ur Random Urea Nitrogn Urine Creatinine CSF Appearance CSF Color CSF WBC CSF RBC CSF Neutrophils CSF Lymphocytes CSF Eosinophils CSF Basophils CSF Macrophages CSF Plasma Cells CSF Diff Comment CSF Comment CSF Glucose CSF Total Protein Opiates Screen Methadone Screen Barbiturate Screen Phencyclidine Screen Ur Amphetamines Screen MDMA (Ecstasy) Screen Benzodiazepines Screen Cocaine Screen U Marijuana (THC) Screen SHARAN M-Naveed AJ Screen c-ANCA Proteinase 3 (PR3) p-ANCA Atypical p-ANCA Myeloperoxidase Ab Gen: lethargic but arousable, doesn't want to open his eyes Heart: RRR Lung: decreased breath sounds at the bases Abd: soft, nontender Ext: no edema IMPRESSION: CHEST CT: 1. Extensive left lower lobe consolidation suspicious for acute pneumonia. There is a lesser degree of consolidation/atelectasis within the right lung base. 2. Limited study with no gross evidence of acute pathology within the abdomen or pelvis. Please see above discussion. Impression; Head CT: No evidence of acute intracranial hemorrhage, edema, midline shift, mass effect, or skull fracture. No CT evidence of acute territorial infarction.. IMPRESSION:US of abdomen: Borderline hepatosplenomegaly with no evidence of acute pathology within the abdomen. Please see above discussion. ASSESSMENT AND PLAN: Patient is a 32 y/o male with no significant PMHx was brought in to the hospital by EMS when family with change of mental status in bed imbedded inhis own stool # atypical pneumonia due to Legionella , ID on the case , patient presented with diarrhea, hyponatremia, ARF.IV antibiotic as per ID patient presented with Fever of 102.6, patient received 2 doses of Zosyn in ED, one dose of levaquin given by ID patient received vancomycin, zosyn, ceftriaxone and flagyl in ED, Pulm/ID on the case. # Acute transaminitis , Hem onc was consulted for Possible hemolysis , cbc smear was done no shistocytes # Acute renal failure with creatinine of 8.7 , no change with the repeat, possibel dialysis in am as per Dr. Edmondson , on IVF at 150cc/hr received 4 liters of IVF around 200cc/hr # Acute Rhabdomyolisis continue IVF , Nephro on the case , repeat cpk level in am # Acute hyponatremia due to legionella on ivf continue. DVt Px: Heparin critical care time of 40 minutes
[2017-11-01 18:38] LABS: ALBUMIN 2.2 g/dl (3.4-5.0); ALK PHOS 68 U/L (45-117); ANION GAP 14 (8-16); BILIRUBIN,TOTAL 1.5 mg/dL (0.2-1.0); BLOOD UREA NITROGEN 71 mg/dL (7-18); CALCIUM 7.3 mg/dL (8.5-10.1); CHLORIDE 100 mmol/L (98-107); CO2 17 mmol/L (21-32); GLUCOSE,RANDOM 76 mg/dL (74-106); POTASSIUM 4.2 mmol/L (3.5-5.1); SGPT/ALT 219 U/L (12-78); SODIUM 131 mmol/L (136-145); TOT PROT 5.9 g/dl (6.4-8.2)
[2017-11-01 18:39] LABS: SGOT/AST 354 U/L (15-37)
[2017-11-01 18:40] LABS: CREATININE 8.9 mg/dL (0.7-1.3)
--- NOTE | 2017-11-01 19:25 | CONS ---
DATE OF CONSULTATION: DATE OF DICTATION: 11/01/2017 INFECTIOUS DISEASE CONSULTATION REQUESTING PHYSICIAN: [facility] CONSULTING PHYSICIAN: Earl Araiza M.D. HISTORY OF PRESENT ILLNESS: This morning was the first time we were aware of the consult. Did not speak with the emergency room last night. I was not continuity reader. This is a 32-year-old man who I am seeing this morning in the emergency room. He presented to the ER last night when his family called 911 because he was too weak to get up and he was lethargic. Per the patient who is currently awake but has slurred speech, he reports that on Wednesday he went to a BBQ. His girlfriend reports she saw him on Wednesday, and he was normal. He started having diarrhea. It is unclear per report it was not bloody. He continued to feel progressively weaker and finally his family called EMS and brought him to the emergency room. I spoke to his mother via phone. She reports that she noted he was having some diarrhea on Wednesday, . He told her he had been to this BBQ and thought perhaps he had eaten something that was bad. On Wednesday she found him sitting on the floor of their living room. She took his temperature, he was very weak. He was, she thought, confused. She thought his speech was slurred. She took his temperature, it was 105. She wanted to bring him to the emergency room, but he refused. She brought him Gatorade and mineral water and vitamin water which he took. On Wednesday she heard a thud, and she thinks he fell in the bathroom and injured his nose, as his nose was bloody. On Wednesday he was weaker. They thought he was not talking coherently. They called the ambulance, and they were not sure what else was going on. In the emergency room, he was noted to have a fever of 102.9. The mom reports after taking his temperature on Wednesday she did not take his temperature when it was 105. The son and mother report he had no vomiting. He has no abdominal pain. He has no chest pain. He has no cough. In the emergency room, he had a chest x-ray done that was grossly normal. He had a spinal tap done that showed no white cells, normal protein and glucose. He was over the course of last night and this morning he was given vancomycin, piperacillin and tazobactam, metronidazole, and ceftriaxone. This morning he had a CAT scan of his abdomen and pelvis which I reviewed with Dr. Gayle, one of our radiologists. Notes that he has a left lower lobe infiltrate, and no evidence of any colitis. PAST MEDICAL HISTORY: Unremarkable. PAST SURGICAL HISTORY: Negative. SOCIAL HISTORY: Lives with his parents. He smokes marijuana occasionally, and he denies any alcohol or cigarette use. He admits to having multiple partners and consents to HIV testing. ALLERGIES: No known drug allergies. MEDICATION: He does not take any medicines at home, and he denies taking any medicines during this illness. Per mom, there has been no recent travel. They have a pet dog. He works at [employer]. 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 REVIEW OF SYSTEMS: GENERAL: He is awake. He follows commands. He can move his hands and feet. He has no nuchal rigidity. His extraocular movements are intact. His cranial nerves are intact. NECK: Supple. LUNGS: Clear to auscultation. HEART: Regular rate and rhythm. ABDOMEN: Soft, nontender. EXTREMITIES: Without edema. SKIN: He has no rash. He has no broken skin. NEUROLOGICAL: Of note, his speech is slurred. He is oriented to person, to place. He knows he is in the hospital, he knows the year, but he does not know his girlfriend. PHYSICAL EXAMINATION: VITAL SIGNS: Temperature 98.1, pulse 78, blood pressure 113/85, respiratory rate 20, saturating 100% on 2 L. HEENT: He is normocephalic. Eyes are anicteric. NECK: Supple. LUNGS: Clear to auscultation. HEART: Regular rate and rhythm. ABDOMEN: Soft, nontender. SKIN: He has no rash. NEUROLOGICAL: He has also on exam no cranial nerves findings, he has no double vision. LABORATORY: White count on admission was 6.7, this morning is 5. Hemoglobin 13.1, platelets of 110. INR is 1.13. BUN and creatinine on admission were 58 and 7.5 with a sodium of 131, AST of 476 and an ALT of 295, total bilirubin is 2.1, alkaline phosphatase of 81. LVH was 1800 with a troponin of 0.12. He has received 4 L of fluid. His repeat AST is 382, ALT of 224, and his creatinine is 8.8. Sedimentation rate is pending, and haptoglobin is pending. Urinalysis is notable for 4 white cells, 3+ blood, 1+ glucose, 2+ protein. CSF showed 0 white cells, original tube had 2112 red cells which cleared to 19 with glucose of 73 and a total protein of 35. Toxicology screen was positive for marijuana. His RPR is nonreactive, and HIV testing is pending. Blood cultures, urine cultures are pending. CSF showed gram stain was negative. Showed no organisms and white cells. CAT scan findings as stated before, notable for the left lower lobe infiltrate. IMPRESSION: In summary, this is a critically ill 32-year-old man admitted in acute renal failure, abnormal liver function tests. There is some sort of metabolic encephalopathy, fever, possible left lower lobe pneumonia. Differential diagnosis would include atypical pneumonia, for which it would be appropriate to cover him with a quinolone and obtain a legionella urinary antigen at this time. Would suggest we obtain stools if possible to cover possibility of an HUS in the setting of a diarrheal illness with shiga toxin as well as routine stool culture and white cells. Thirdly, HUS, he is to be seen by hematology, who will look at his smear. Acute renal failure, renal evaluation. Will discuss with neurology given his overall flaccidity whether we need to entertain other diagnoses such as botulism, but he has no cranial nerve findings. So will discuss this further with them at this time. He has been scheduled for EMG, and CPK is pending as well, which we will review. Further recommendations to follow. EARL ARAIZA M.D. [id number]
--- NOTE | 2017-11-01 21:06 | PN ---
Physical Exam: SUBJECTIVE: Patient seen and examined this am and afternoon in icu. Pt is resting in bed, obtunded, responses to questions were laborious. Denies any pain , endorses he is feeling lethargic. OBJECTIVE: Vital Signs Period Temp Pulse Resp BP Sys/Dangelo Pulse Ox Last 24 Hr 98.1 F-100.9 F 78-108 18-137 104-137/76-94 98-100 GENERAL: Lethargic HEAD: NC/AT EYES: EOMI ENT: MMM NECK: No JVD LUNGS: Dec BS at Bases. HEART: RRR, no MRG ABDOMEN: Slightly rigid abdomen, no guarding. EXTREMITIES: Cool to touch. NEUROLOGICAL: Cranial nerves II through XII grossly intact. Normal speech, gait not observed. SKIN: Small abrasion on back, level of t3. Laboratory Results - last 24 hr 10/31/17 10/31/17 10/31/17 18:00 18:00 21:21 WBC RBC Hgb Hct MCV MCH MCHC RDW Plt Count MPV Absolute Neuts (auto) Total Counted Neutrophils % Neutrophils % (Manual) Band Neutrophils % Lymphocytes % Lymphocytes % (Manual) Monocytes % Monocytes % (Manual) Eosinophils % Basophils % Nucleated RBC % Metamyelocytes Platelet Estimate Schistocytes ESR Retic Count PT with INR INR Puncture Site ABG pH ABG pCO2 at Pt Temp ABG pO2 at Pt Temp ABG HCO3 ABG O2 Sat (Measured) ABG O2 Content ABG Base Excess Julio Cesar Test O2 Delivery Device Oxygen Flow Rate Sodium Potassium Chloride Carbon Dioxide Anion Gap BUN Creatinine Creat Clearance w eGFR Random Glucose Serum Osmolality Lactic Acid 0.9 Calcium Phosphorus Magnesium Total Bilirubin Direct Bilirubin GGT 57 AST ALT Alkaline Phosphatase Ammonia LD Total 1800 H Creatine Kinase Creatine Kinase Index CK-MB (CK-2) Troponin I Total Protein Albumin Urine Osmolality U Random Total Protein Ur Random Sodium Ur Random Potassium Ur Random Chloride Ur Random Urea Nitrogn Urine Creatinine Urine Potassium CSF Appearance CSF Color CSF WBC CSF RBC CSF Neutrophils CSF Lymphocytes CSF Eosinophils CSF Basophils CSF Macrophages CSF Plasma Cells CSF Diff Comment CSF Comment CSF Glucose CSF Total Protein Salicylates Opiates Screen Methadone Screen Barbiturate Screen Phencyclidine Screen Ur Amphetamines Screen MDMA (Ecstasy) Screen Benzodiazepines Screen Cocaine Screen U Marijuana (THC) Screen RPR Titer HIV 1&2 Antibody Screen HIV P24 Antigen Direct Antiglob Test 10/31/17 10/31/17 10/31/17 21:21 21:21 23:30 WBC RBC Hgb Hct MCV MCH MCHC RDW Plt Count MPV Absolute Neuts (auto) Total Counted Neutrophils % Neutrophils % (Manual) Band Neutrophils % Lymphocytes % Lymphocytes % (Manual) Monocytes % Monocytes % (Manual) Eosinophils % Basophils % Nucleated RBC % Metamyelocytes Platelet Estimate Schistocytes ESR Retic Count PT with INR INR Puncture Site ABG pH ABG pCO2 at Pt Temp ABG pO2 at Pt Temp ABG HCO3 ABG O2 Sat (Measured) ABG O2 Content ABG Base Excess Julio Cesar Test O2 Delivery Device Oxygen Flow Rate Sodium Potassium Chloride Carbon Dioxide Anion Gap BUN Creatinine Creat Clearance w eGFR Random Glucose Serum Osmolality Lactic Acid Calcium Phosphorus Magnesium Total Bilirubin Direct Bilirubin GGT AST ALT Alkaline Phosphatase Ammonia 32.89 H LD Total Creatine Kinase Creatine Kinase Index CK-MB (CK-2) Troponin I Total Protein Albumin Urine Osmolality U Random Total Protein Ur Random Sodium Ur Random Potassium Ur Random Chloride Ur Random Urea Nitrogn Urine Creatinine Urine Potassium CSF Appearance Clear CSF Color [place] CSF WBC 0 CSF RBC 2112 CSF Neutrophils No Result Required. CSF Lymphocytes No Result Required. CSF Eosinophils No Result Required. CSF Basophils No Result Required. CSF Macrophages No Result Required. CSF Plasma Cells No Result Required. CSF Diff Comment CSF Comment No Result Required. CSF Glucose 73 CSF Total Protein 35 Salicylates Opiates Screen Methadone Screen Barbiturate Screen Phencyclidine Screen Ur Amphetamines Screen MDMA (Ecstasy) Screen Benzodiazepines Screen Cocaine Screen U Marijuana (THC) Screen RPR Titer Nonreactive HIV 1&2 Antibody Screen HIV P24 Antigen Direct Antiglob Test 10/31/17 11/01/17 11/01/17 23:30 02:44 07:50 WBC 4.9 RBC 4.26 Hgb 12.9 Hct 37.2 MCV 87.4 MCH 30.2 MCHC 34.6 RDW 13.2 Plt Count 108 L D MPV 8.3 Absolute Neuts (auto) 4.1 Total Counted 100 Neutrophils % 83.9 H Neutrophils % (Manual) 45.0 Band Neutrophils % 31.0 Lymphocytes % 8.1 D Lymphocytes % (Manual) 11.0 Monocytes % 7.7 Monocytes % (Manual) 8 Eosinophils % 0.1 D Basophils % 0.2 Nucleated RBC % 0 Metamyelocytes 5 H Platelet Estimate Slt decrease Schistocytes Rare ESR Retic Count PT with INR INR Puncture Site ABG pH ABG pCO2 at Pt Temp ABG pO2 at Pt Temp ABG HCO3 ABG O2 Sat (Measured) ABG O2 Content ABG Base Excess Julio Cesar Test O2 Delivery Device Oxygen Flow Rate Sodium Potassium Chloride Carbon Dioxide Anion Gap BUN Creatinine Creat Clearance w eGFR Random Glucose Serum Osmolality Lactic Acid Calcium Phosphorus Magnesium Total Bilirubin Direct Bilirubin GGT AST ALT Alkaline Phosphatase Ammonia LD Total Creatine Kinase Creatine Kinase Index CK-MB (CK-2) Troponin I Total Protein Albumin Urine Osmolality U Random Total Protein 302 H Ur Random Sodium 24 Ur Random Potassium Ur Random Chloride Ur Random Urea Nitrogn Urine Creatinine 244.0 Urine Potassium CSF Appearance Clear CSF Color Colorless CSF WBC 0 CSF RBC 19 CSF Neutrophils No Result Required. CSF Lymphocytes No Result Required. CSF Eosinophils No Result Required. CSF Basophils No Result Required. CSF Macrophages No Result Required. CSF Plasma Cells No Result Required. CSF Diff Comment No Result Required. CSF Comment CSF Glucose No Result Required. CSF Total Protein No Result Required. Salicylates Opiates Screen Methadone Screen Barbiturate Screen Phencyclidine Screen Ur Amphetamines Screen MDMA (Ecstasy) Screen Benzodiazepines Screen Cocaine Screen U Marijuana (THC) Screen RPR Titer HIV 1&2 Antibody Screen HIV P24 Antigen Direct Antiglob Test 11/01/17 11/01/17 11/01/17 07:50 07:50 07:50 WBC RBC Hgb Hct MCV MCH MCHC RDW Plt Count MPV Absolute Neuts (auto) Total Counted Neutrophils % Neutrophils % (Manual) Band Neutrophils % Lymphocytes % Lymphocytes % (Manual) Monocytes % Monocytes % (Manual) Eosinophils % Basophils % Nucleated RBC % Metamyelocytes Platelet Estimate Schistocytes ESR Retic Count PT with INR 12.80 INR 1.13 H Puncture Site ABG pH ABG pCO2 at Pt Temp ABG pO2 at Pt Temp ABG HCO3 ABG O2 Sat (Measured) ABG O2 Content ABG Base Excess Julio Cesar Test O2 Delivery Device Oxygen Flow Rate Sodium 131 L Potassium 3.7 Chloride 99 Carbon Dioxide 17 L Anion Gap 15 BUN 65 H Creatinine 8.6 H* Creat Clearance w eGFR 7.28 Random Glucose 113 H Serum Osmolality Lactic Acid Calcium 6.7 L* Phosphorus 5.0 H Magnesium 2.6 H Total Bilirubin 1.7 H Direct Bilirubin 1.4 H GGT AST 371 H D ALT 214 H D Alkaline Phosphatase 65 D Ammonia LD Total 1744 H Creatine Kinase 43180 H Creatine Kinase Index 0.0 CK-MB (CK-2) 10.95 H Troponin I 0.18 H D Cancelled Total Protein 5.6 L Albumin 2.1 L Urine Osmolality U Random Total Protein Ur Random Sodium Ur Random Potassium Ur Random Chloride Ur Random Urea Nitrogn Urine Creatinine Urine Potassium CSF Appearance CSF Color CSF WBC CSF RBC CSF Neutrophils CSF Lymphocytes CSF Eosinophils CSF Basophils CSF Macrophages CSF Plasma Cells CSF Diff Comment CSF Comment CSF Glucose CSF Total Protein Salicylates < 4.0 Opiates Screen Methadone Screen Barbiturate Screen Phencyclidine Screen Ur Amphetamines Screen MDMA (Ecstasy) Screen Benzodiazepines Screen Cocaine Screen U Marijuana (THC) Screen RPR Titer HIV 1&2 Antibody Screen HIV P24 Antigen Direct Antiglob Test 11/01/17 11/01/17 11/01/17 07:50 07:50 09:55 WBC RBC Hgb Hct MCV MCH MCHC RDW Plt Count MPV Absolute Neuts (auto) Total Counted Neutrophils % Neutrophils % (Manual) Band Neutrophils % Lymphocytes % Lymphocytes % (Manual) Monocytes % Monocytes % (Manual) Eosinophils % Basophils % Nucleated RBC % Metamyelocytes Platelet Estimate Schistocytes ESR 71 H Retic Count 0.52 PT with INR INR Puncture Site ABG pH ABG pCO2 at Pt Temp ABG pO2 at Pt Temp ABG HCO3 ABG O2 Sat (Measured) ABG O2 Content ABG Base Excess Julio Cesar Test O2 Delivery Device Oxygen Flow Rate Sodium Potassium Chloride Carbon Dioxide Anion Gap BUN Creatinine Creat Clearance w eGFR Random Glucose Serum Osmolality Lactic Acid Calcium Phosphorus Magnesium Total Bilirubin Direct Bilirubin GGT AST ALT Alkaline Phosphatase Ammonia LD Total Creatine Kinase Creatine Kinase Index CK-MB (CK-2) Troponin I Total Protein Albumin Urine Osmolality U Random Total Protein 275 H Ur Random Sodium 32 Ur Random Potassium 17.5 Ur Random Chloride 17 Ur Random Urea Nitrogn 351 Urine Creatinine 158.0 Urine Potassium Cancelled CSF Appearance CSF Color CSF WBC CSF RBC CSF Neutrophils CSF Lymphocytes CSF Eosinophils CSF Basophils CSF Macrophages CSF Plasma Cells CSF Diff Comment CSF Comment CSF Glucose CSF Total Protein Salicylates Opiates Screen Methadone Screen Barbiturate Screen Phencyclidine Screen Ur Amphetamines Screen MDMA (Ecstasy) Screen Benzodiazepines Screen Cocaine Screen U Marijuana (THC) Screen RPR Titer HIV 1&2 Antibody Screen HIV P24 Antigen Direct Antiglob Test 11/01/17 11/01/17 11/01/17 09:55 10:10 10:31 WBC 5.0 RBC 4.38 Hgb 13.1 Hct 38.5 MCV 87.8 MCH 30.0 MCHC 34.2 RDW 13.4 Plt Count 110 L MPV 7.9 Absolute Neuts (auto) 4.0 Total Counted Neutrophils % 80.9 Neutrophils % (Manual) Band Neutrophils % Lymphocytes % 10.3 D Lymphocytes % (Manual) Monocytes % 8.7 Monocytes % (Manual) Eosinophils % 0.0 D Basophils % 0.1 Nucleated RBC % 0 Metamyelocytes Platelet Estimate Schistocytes ESR Retic Count PT with INR INR Puncture Site ABG pH ABG pCO2 at Pt Temp ABG pO2 at Pt Temp ABG HCO3 ABG O2 Sat (Measured) ABG O2 Content ABG Base Excess Julio Cesar Test O2 Delivery Device Oxygen Flow Rate Sodium Potassium Chloride Carbon Dioxide Anion Gap BUN Creatinine Creat Clearance w eGFR Random Glucose Serum Osmolality Lactic Acid Calcium Phosphorus Magnesium Total Bilirubin Direct Bilirubin GGT AST ALT Alkaline Phosphatase Ammonia LD Total Creatine Kinase Creatine Kinase Index CK-MB (CK-2) Troponin I Total Protein Albumin Urine Osmolality 305 U Random Total Protein Ur Random Sodium Ur Random Potassium Ur Random Chloride Ur Random Urea Nitrogn Urine Creatinine Urine Potassium CSF Appearance CSF Color CSF WBC CSF RBC CSF Neutrophils CSF Lymphocytes CSF Eosinophils CSF Basophils CSF Macrophages CSF Plasma Cells CSF Diff Comment CSF Comment CSF Glucose CSF Total Protein Salicylates Opiates Screen Negative Methadone Screen Negative Barbiturate Screen Negative Phencyclidine Screen Negative Ur Amphetamines Screen Negative MDMA (Ecstasy) Screen Negative Benzodiazepines Screen Negative Cocaine Screen Negative U Marijuana (THC) Screen Positive RPR Titer HIV 1&2 Antibody Screen HIV P24 Antigen Direct Antiglob Test 11/01/17 11/01/17 11/01/17 10:31 10:31 10:31 WBC RBC Hgb Hct MCV MCH MCHC RDW Plt Count MPV Absolute Neuts (auto) Total Counted Neutrophils % Neutrophils % (Manual) Band Neutrophils % Lymphocytes % Lymphocytes % (Manual) Monocytes % Monocytes % (Manual) Eosinophils % Basophils % Nucleated RBC % Metamyelocytes Platelet Estimate Schistocytes ESR Retic Count PT with INR INR Puncture Site ABG pH ABG pCO2 at Pt Temp ABG pO2 at Pt Temp ABG HCO3 ABG O2 Sat (Measured) ABG O2 Content ABG Base Excess Julio Cesar Test O2 Delivery Device Oxygen Flow Rate Sodium 131 L Potassium 3.7 Chloride 99 Carbon Dioxide 18 L Anion Gap 14 BUN 67 H Creatinine 8.8 H* Creat Clearance w eGFR 7.09 Random Glucose 100 Serum Osmolality 296 Lactic Acid Calcium 6.9 L* Phosphorus Magnesium Total Bilirubin 1.9 H Direct Bilirubin GGT AST 382 H ALT 224 H Alkaline Phosphatase 68 Ammonia LD Total Creatine Kinase Creatine Kinase Index CK-MB (CK-2) Troponin I Total Protein 5.9 L Albumin 2.2 L Urine Osmolality U Random Total Protein Ur Random Sodium Ur Random Potassium Ur Random Chloride Ur Random Urea Nitrogn Urine Creatinine Urine Potassium CSF Appearance CSF Color CSF WBC CSF RBC CSF Neutrophils CSF Lymphocytes CSF Eosinophils CSF Basophils CSF Macrophages CSF Plasma Cells CSF Diff Comment CSF Comment CSF Glucose CSF Total Protein Salicylates Opiates Screen Methadone Screen Barbiturate Screen Phencyclidine Screen Ur Amphetamines Screen MDMA (Ecstasy) Screen Benzodiazepines Screen Cocaine Screen U Marijuana (THC) Screen RPR Titer HIV 1&2 Antibody Screen Negative HIV P24 Antigen Negative Direct Antiglob Test Negative 11/01/17 11/01/17 11/01/17 10:31 12:50 12:59 WBC RBC Hgb Hct MCV MCH MCHC RDW Plt Count MPV Absolute Neuts (auto) Total Counted Neutrophils % Neutrophils % (Manual) Band Neutrophils % Lymphocytes % Lymphocytes % (Manual) Monocytes % Monocytes % (Manual) Eosinophils % Basophils % Nucleated RBC % Metamyelocytes Platelet Estimate Schistocytes ESR Retic Count PT with INR INR Puncture Site Right radial ABG pH 7.36 ABG pCO2 at Pt Temp 28.9 L ABG pO2 at Pt Temp 86.8 ABG HCO3 16.0 L ABG O2 Sat (Measured) 96.5 ABG O2 Content 18.2 ABG Base Excess -7.7 L Julio Cesar Test Positive O2 Delivery Device Room air Oxygen Flow Rate 21% Sodium 134 L Potassium 3.9 Chloride 101 Carbon Dioxide 17 L Anion Gap 16 BUN 69 H Creatinine 8.7 H* Creat Clearance w eGFR 7.18 Random Glucose 101 Serum Osmolality Lactic Acid Calcium 6.8 L* Phosphorus Magnesium Total Bilirubin Direct Bilirubin GGT AST ALT Alkaline Phosphatase Ammonia LD Total Creatine Kinase Creatine Kinase Index CK-MB (CK-2) Troponin I Total Protein Albumin Urine Osmolality U Random Total Protein Ur Random Sodium Ur Random Potassium Ur Random Chloride Ur Random Urea Nitrogn Urine Creatinine Urine Potassium CSF Appearance CSF Color CSF WBC CSF RBC CSF Neutrophils CSF Lymphocytes CSF Eosinophils CSF Basophils CSF Macrophages CSF Plasma Cells CSF Diff Comment CSF Comment CSF Glucose CSF Total Protein Salicylates < 4.0 Opiates Screen Methadone Screen Barbiturate Screen Phencyclidine Screen Ur Amphetamines Screen MDMA (Ecstasy) Screen Benzodiazepines Screen Cocaine Screen U Marijuana (THC) Screen RPR Titer HIV 1&2 Antibody Screen HIV P24 Antigen Direct Antiglob Test 11/01/17 18:00 WBC RBC Hgb Hct MCV MCH MCHC RDW Plt Count MPV Absolute Neuts (auto) Total Counted Neutrophils % Neutrophils % (Manual) Band Neutrophils % Lymphocytes % Lymphocytes % (Manual) Monocytes % Monocytes % (Manual) Eosinophils % Basophils % Nucleated RBC % Metamyelocytes Platelet Estimate Schistocytes ESR Retic Count PT with INR INR Puncture Site ABG pH ABG pCO2 at Pt Temp ABG pO2 at Pt Temp ABG HCO3 ABG O2 Sat (Measured) ABG O2 Content ABG Base Excess Julio Cesar Test O2 Delivery Device Oxygen Flow Rate Sodium 131 L Potassium 4.2 Chloride 100 Carbon Dioxide 17 L Anion Gap 14 BUN 71 H Creatinine 8.9 H* Creat Clearance w eGFR 6.99 Random Glucose 76 D Serum Osmolality Lactic Acid Calcium 7.3 L Phosphorus Magnesium Total Bilirubin 1.5 H Direct Bilirubin GGT AST 354 H ALT 219 H Alkaline Phosphatase 68 Ammonia LD Total Creatine Kinase Creatine Kinase Index CK-MB (CK-2) Troponin I Total Protein 5.9 L Albumin 2.2 L Urine Osmolality U Random Total Protein Ur Random Sodium Ur Random Potassium Ur Random Chloride Ur Random Urea Nitrogn Urine Creatinine Urine Potassium CSF Appearance CSF Color CSF WBC CSF RBC CSF Neutrophils CSF Lymphocytes CSF Eosinophils CSF Basophils CSF Macrophages CSF Plasma Cells CSF Diff Comment CSF Comment CSF Glucose CSF Total Protein Salicylates Opiates Screen Methadone Screen Barbiturate Screen Phencyclidine Screen Ur Amphetamines Screen MDMA (Ecstasy) Screen Benzodiazepines Screen Cocaine Screen U Marijuana (THC) Screen RPR Titer HIV 1&2 Antibody Screen HIV P24 Antigen Direct Antiglob Test Active Medications Generic Name Dose Route Start Last Admin Trade Name Tatyana PRN Reason Stop Dose Admin Chlorhexidine Gluconate 1 applic 11/01/17 22:00 Hibiclens For Decolonization - TP HS ODILIA Heparin Sodium (Porcine) 5,000 unit 11/01/17 06:00 11/01/17 15:45 Heparin - SQ 5,000 unit TID ODILIA Administration Sodium Chloride 1,000 mls @ 150 mls/hr 11/01/17 17:55 11/01/17 18:25 Normal Saline - IV 150 mls/hr ASDIR ODILIA Administration Mupirocin 1 applic 11/01/17 22:00 Bactroban Ointment (For Decolonization) - NS 11/06/17 21:59 BID ODILIA Rifaximin 550 mg 10/31/17 23:45 11/01/17 11:15 Xifaxan - PO 550 mg BID ODILIA Administration ASSESSMENT/PLAN: Pt is a 32 y/o M with no significant pmh who was at a barbeque a few days ago, developed dark, watery diarrhea and fevers. Pt observed his urine to be darker than usual and was urinating less frequently. [facility]/o generalized weakness and AMS per family. No recent travel or sick contacts. No skin rashes. Neuro- AMS Head CT--> No Intracranial hemmorhage, midline shift, or edema. Pulm-Legionella Pneumonia -Legionella Urine Antigen presumably + - Received vancomycin, zosyn, ceftriaxone and flagyl in ED ID on Board-One dose of Levaquin given Renal: [place] 2/2 Hypoperfusion BUN/CR--> 71/8.[address] Edmondson on board Per Nephro: Continue aggressive IVF hydration with NS, give additional bolus PREFABRICATOR on hold Abd/Pelvis CT--> Extensivve left lower lobe consolidation suspcious for acute pneumonia. Atelectais/consolidation right lung base. Abdomen Ultrasound--> Hepatosplenomegaly. Heme: Thrombovytopenia --> 110. May be due to sepsis, liver disease or hypersplenism. Peripheral smear reviewed - NO schistocytes. Dr Lynne Following FEN NS 1,000 mls @ 150 mls/hr Monitor Electrolytes NPO DVT ppx: Heparin 5,000 U SQ BID Dispo: Continue to monitor in icu. Visit type - Emergency Visit Emergency Visit: Yes ED Registration Date: 11/01/17 Care time: The patient presented to the Emergency Department on the above date and was hospitalized for further evaluation of their emergent condition. - New Patient This patient is new to me today: Yes Date on this admission: 11/01/17 - Critical Care Critical Care patient: Yes Total Critical Care Time (in minutes): 35 Critical Care Statement: The care of this patient involved high complexity decision making to prevent further life threatening deterioration of the patient 's condition and/or to evaluate & treat vital organ system(s) failure or risk of failure.
[2017-11-01 22:34] LABS: ALK PHOS 65 U/L (45-117); ANION GAP 17 (8-16); BILIRUBIN,TOTAL 1.3 mg/dL (0.2-1.0); BLOOD UREA NITROGEN 75 mg/dL (7-18); CHLORIDE 102 mmol/L (98-107); CO2 15 mmol/L (21-32); GLUCOSE,RANDOM 86 mg/dL (74-106); SGPT/ALT 194 U/L (12-78); SODIUM 134 mmol/L (136-145); TOT PROT 5.5 g/dl (6.4-8.2)
[2017-11-01 22:35] LABS: POTASSIUM 3.9 mmol/L (3.5-5.1); SGOT/AST 323 U/L (15-37)
[2017-11-01] MEDS: CHLORHEXIDINE GLUCONATE 4% CLEANSER FOR DECOLONIZATION TP SCH (23:37)
[2017-11-01] MEDS: MUPIROCIN 2% TOPICAL OINTMENT FOR DECOLONIZATION NS SCH (23:37)
[2017-11-02] MEDS: SODIUM CHLORIDE 1,000 ML IV SCH ×2 (01:00→05:56)
[2017-11-02] MEDS ORDERED: ACETAMINOPHEN 1000 MG/100 ML VIAL (NON FORMULARY) IVPB ONE ×2 (01:27→16:15)
[2017-11-02 03:24] LABS: ARTERIAL BLD GAS O2 SATURATION 97.6 % (90-98.9); ARTERIAL BLOOD GAS BASE EXCESS -11.1 meq/l (-2-2); ARTERIAL BLOOD GAS PCO2 20.5 mmHg (35-45); ARTERIAL BLOOD GAS PO2 98.3 mmHg (80-100); ARTERIAL BLOOD GAS pH 7.38 (7.35-7.45)
[2017-11-02 03:25] LABS: ALLENS TEST POSITIVE
--- NOTE | 2017-11-02 03:31 | PN ---
Progress Note (short form) - Note Progress Note: The patient has been more confused. ABG, CMP was ordered stat. His pH was 7.38. After discussing with Dr Edmondson, bicarbonate was not given. We continued Normal Saline at rate 150 cc/hr. Problem List - Problems (1) Acute kidney failure Code(s): N17.9 - ACUTE KIDNEY FAILURE, UNSPECIFIED Qualifiers: Acute renal failure type: unspecified Qualified Code(s): N17.9 - Acute kidney failure, unspecified (2) Altered mental status Code(s): R41.82 - ALTERED MENTAL STATUS, UNSPECIFIED Qualifiers: Altered mental status type: disorientation Qualified Code(s): R41.0 - Disorientation, unspecified (3) Elevated LFTs Code(s): R94.5 - ABNORMAL RESULTS OF LIVER FUNCTION STUDIES (4) Fever Code(s): R50.9 - FEVER, UNSPECIFIED Qualifiers: Fever type: unspecified Qualified Code(s): R50.9 - Fever, unspecified
[2017-11-02 03:58] LABS: ALK PHOS 64 U/L (45-117); ANION GAP 19 (8-16); BILIRUBIN,TOTAL 1.3 mg/dL (0.2-1.0); BLOOD UREA NITROGEN 82 mg/dL (7-18); CHLORIDE 102 mmol/L (98-107); CO2 13 mmol/L (21-32); GLUCOSE,RANDOM 90 mg/dL (74-106); POTASSIUM 3.7 mmol/L (3.5-5.1); SGOT/AST 314 U/L (15-37); SGPT/ALT 188 U/L (12-78); SODIUM 134 mmol/L (136-145); TOT PROT 5.4 g/dl (6.4-8.2)
[2017-11-02 04:14] LABS: CREATININE 9.5 mg/dL (0.7-1.3)
[2017-11-02] MEDS: HEPARIN NA (PORCINE) 5,000 UNITS/ML 1ML VIAL SQ SCH ×3 (05:59→21:50)
[2017-11-02 06:06] LABS: HEP.C VIRUS AB <0.1 s/co ratio (0.0-0.9)
[2017-11-02 06:20] LABS: BASO % 0.4 % (0-2.0); EOS % 0.1 % (0-4.5); HEMOGLOBIN 11.8 GM/dL (11.7-16.9); LYMPH % 14.2 % (8-40); MCH 30.3 pg (25.7-33.7); MCHC 34.7 g/dl (32.0-35.9); MEAN CELL VOLUME 87.3 fl (80-96); MEAN PLT VOLUME 8.5 fl (7.5-11.1); MONO % 9.3 % (3.8-10.2); PLATELET COUNT 105 K/MM3 (134-434); RDW 13.1 % (11.9-15.9)
[2017-11-02 06:31] LABS: INR 1.36 (0.83-1.09); PROTHROMBIN TIME (PATIENT) 15.4 SEC (9.7-13.0)
[2017-11-02 06:49] LABS: ANION GAP 18 (8-16); BLOOD UREA NITROGEN 83 mg/dL (7-18); CALCIUM 7.1 mg/dL (8.5-10.1); CHLORIDE 101 mmol/L (98-107); CO2 14 mmol/L (21-32); GLUCOSE,RANDOM 88 mg/dL (74-106); POTASSIUM 3.8 mmol/L (3.5-5.1); SODIUM 133 mmol/L (136-145)
[2017-11-02 07:16] LABS: ALK PHOS 62 U/L (45-117); BILIRUBIN,TOTAL 1.3 mg/dL (0.2-1.0); MAGNESIUM 2.4 mg/dL (1.8-2.4); PHOSPHOROUS 4.7 mg/dL (2.5-4.9); SGOT/AST 294 U/L (15-37); SGPT/ALT 181 U/L (12-78); TOT PROT 5.2 g/dl (6.4-8.2)
[2017-11-02 07:40] LABS: CREATININE 9.7 mg/dL (0.7-1.3)
--- NOTE | 2017-11-02 09:13 | PN ---
Progress Note, Physician History of Present Illness: events noted and chart reviewed Patient seen in the medical ICU with the girlfriend at the bedside Case discussed with the registered nurse No significant event overnight patient was hemodynamically unstable with a fever No report of any seizure-like activity patient again with waxing and waning mental status. On exam today patient has been difficult to exam with lack of cooperation but patient moves all 4 extremities. Patient aspirated slightly with the sip of water Nerve conduction testing electromyography of the lower extremities showed mild neuropathy which is not very helpful No F waves were done - Current Medication List Current Medications: Active Medications Chlorhexidine Gluconate (Hibiclens For Decolonization -) 1 applic TP HS ODILIA Last Admin: 11/01/17 23:37 Dose: 1 applic Heparin Sodium (Porcine) (Heparin -) 5,000 unit SQ TID ODILIA Last Admin: 11/02/17 05:59 Dose: 5,000 unit Sodium Chloride (Normal Saline -) 1,000 mls @ 150 mls/hr IV ASDIR ODILIA Last Admin: 11/02/17 05:56 Dose: 150 mls/hr Levofloxacin (Levaquin 250 Mg Premixed Ivpb -) 250 mg in 50 mls @ 50 mls/hr IVPB Q[facility]; Protocol Mupirocin (Bactroban Ointment (For Decolonization) -) 1 applic NS BID ODILIA Stop: 11/06/17 21:59 Last Admin: 11/01/17 23:37 Dose: 1 applic - Objective Vital Signs: Vital Signs Temperature 97.6 F 11/02/17 04:00 Pulse Rate 67 11/02/17 06:00 Respiratory Rate 24 11/02/17 06:00 Blood Pressure 131/76 11/02/17 06:00 O2 Sat by Pulse Oximetry (%) 100 11/02/17 09:00 Constitutional: Yes: Well Nourished Eyes: Yes: WNL Neurological: Yes: Alert, Oriented, Babinski negative, Dysarthria Labs: CBC, BMP 11/02/17 05:30 11/02/17 05:30 INR, PTT INR 1.36 (0.83-1.09) H 11/02/17 05:30 Problem List - Problems (1) Altered mental status Assessment/Plan: questionable Legionella infection with acute renal insufficiency Waxing and waning toxic encephalopathy Improving liver function 1. Neuro checks every 1 hour 2. Aspiration precautions with consult to the speech and swallow 3. Blood work for myopathy 4. We'll discuss the results of the EMG with physical therapy team 5. DVT prophylaxis 6. Follow-up with infectious disease specialist 7. Follow-up the culture from the CSF Code(s): R41.82 - ALTERED MENTAL STATUS, UNSPECIFIED Qualifiers: Altered mental status type: disorientation Qualified Code(s): R41.0 - Disorientation, unspecified
--- NOTE | 2017-11-02 09:25 | PN ---
Teaching Attending Note Name of Resident: Nicci Gordon ATTENDING PHYSICIAN STATEMENT I saw and evaluated the patient. I reviewed the resident's note and discussed the case with the resident. I agree with the resident's findings and plan as documented. SUBJECTIVE: Patient is more responsive , having dialysis at bedside. In ICU OBJECTIVE: Vital Signs Temperature 97.6 F 11/02/17 04:00 Pulse Rate 80 11/02/17 08:00 Respiratory Rate 22 11/02/17 08:00 Blood Pressure 138/87 11/02/17 08:00 O2 Sat by Pulse Oximetry (%) 100 11/02/17 09:00 CBCD WBC 6.0 K/mm3 (4.0-10.0) 11/02/17 05:30 RBC 3.90 M/mm3 (4.00-5.60) L 11/02/17 05:30 Hgb 11.8 GM/dL (11.7-16.9) 11/02/17 05:30 Hct 34.0 % (35.4-49) L 11/02/17 05:30 MCV 87.3 fl (80-96) 11/02/17 05:30 MCHC 34.7 g/dl (32.0-35.9) 11/02/17 05:30 RDW 13.1 % (11.9-15.9) 11/02/17 05:30 Plt Count 105 K/MM3 (134-434) L 11/02/17 05:30 MPV 8.5 fl (7.5-11.1) 11/02/17 05:30 CMP Sodium 133 mmol/L (136-145) L 11/02/17 05:30 Potassium 3.8 mmol/L (3.5-5.1) 11/02/17 05:30 Chloride 101 mmol/L (98-107) 11/02/17 05:30 Carbon Dioxide 14 mmol/L (21-32) L 11/02/17 05:30 Anion Gap 18 (8-16) H 11/02/17 05:30 BUN 83 mg/dL (7-18) H 11/02/17 05:30 Creatinine 9.7 mg/dL (0.7-1.3) H* 11/02/17 05:30 Creat Clearance w eGFR 6.33 (>60) 11/02/17 05:30 Random Glucose 88 mg/dL (74-106) 11/02/17 05:30 Calcium 7.1 mg/dL (8.5-10.1) L 11/02/17 05:30 Total Bilirubin 1.3 mg/dL (0.2-1.0) H 11/02/17 05:30 AST 294 U/L (15-37) H 11/02/17 05:30 ALT 181 U/L (12-78) H 11/02/17 05:30 Alkaline Phosphatase 62 U/L (45-117) 11/02/17 05:30 Total Protein 5.2 g/dl (6.4-8.2) L 11/02/17 05:30 Albumin 2.0 g/dl (3.4-5.0) L 11/02/17 05:30 CARDIAC ENZYMES Creatine Kinase 25512 IU/L (39-308) H 11/01/17 07:50 Troponin I 0.18 ng/ml (0.00-0.05) H D 11/01/17 07:50 Current Medications Generic Name Dose Route Start Last Admin Trade Name Tatyana PRN Reason Stop Dose Admin Chlorhexidine Gluconate 1 applic 11/01/17 22:00 11/01/17 23:37 Hibiclens For Decolonization - TP 1 applic HS [facility] Administration Heparin Sodium (Porcine) 5,000 unit 11/01/17 06:00 11/02/17 05:59 Heparin - SQ 5,000 unit TID [facility] Administration Sodium Chloride 1,000 mls @ 150 mls/hr 11/01/17 17:55 11/02/17 05:56 Normal Saline - IV 150 mls/hr ASDIR [facility] Administration Levofloxacin 250 mg in 50 mls @ 50 mls/hr 11/02/17 10:00 Levaquin 250 Mg Premixed Ivpb - IVPB Q48H [facility] Protocol Mupirocin 1 applic 11/01/17 22:00 11/01/17 23:37 Bactroban Ointment (For Decolonization) - NS 11/06/17 21:59 1 applic BID [facility] Administration Home Medications Medication Instructions Recorded NK [No Known Home Medication] 10/31/17 Gen: lethargic but arousable, opens his eyes Heart: RRR Lung: decreased breath sounds at the bases Abd: soft, nontender Ext: no edema IMPRESSION: CHEST CT: 1. Extensive left lower lobe consolidation suspicious for acute pneumonia. There is a lesser degree of consolidation/atelectasis within the right lung base. 2. Limited study with no gross evidence of acute pathology within the abdomen or pelvis. Please see above discussion. Impression; Head CT: No evidence of acute intracranial hemorrhage, edema, midline shift, mass effect, or skull fracture. No CT evidence of acute territorial infarction.. IMPRESSION:US of abdomen: Borderline hepatosplenomegaly with no evidence of acute pathology within the abdomen. Please see above discussion. ASSESSMENT AND PLAN: Patient is a 32 y/o male with no significant PMHx was brought in to the hospital by EMS when family with change of mental status in bed imbedded inhis own stool # atypical pneumonia due to Legionella , ID on the case , patient presented with diarrhea, hyponatremia, ARF.IV antibiotic as per ID ,received levaquin and vanco in ED. patient presented with Fever of 102.6, patient received 2 doses of Zosyn in ED, one dose of levaquin given by ID patient received vancomycin, zosyn, ceftriaxone and flagyl in ED, Pulm/ID on the case. # Acute transaminitis , Hem onc was consulted for Possible hemolysis , cbc smear was done no shistocytes # Acute renal failure with creatinine of 8.7 , no change with the repeat, possibel dialysis in am as per Dr. Edmondson , on IVF at 150cc/hr received 4 liters of IVF around 200cc/hr # Acute Rhabdomyolisis continue IVF , Nephro on the case , repeat cpk level in am # Acute hyponatremia due to legionella on ivf continue. DVt Px: Heparin
[2017-11-02] MEDS ORDERED: SODIUM CHLORIDE 250 ML IV PRN ×2 (09:41→19:13)
[2017-11-02] MEDS: MUPIROCIN 2% TOPICAL OINTMENT FOR DECOLONIZATION NS SCH ×2 (10:00→21:50)
--- NOTE | 2017-11-02 10:38 | CONSULT ---
Admitting History and Physical - Primary Care Physician PCP: Hector Rizzo - Admission History of Present Illness: 32 y/o M with developed dark, watery diarrhea and fevers, generalized weakness and AMS . Head CT--> No Intracranial hemmorhage, midline shift, or edema. Pulm-Legionella Pneumonia -Legionella Urine Antigen presumably + History Source: Medical Record Limitations to Obtaining History: Clinical Condition - Smoking History Smoking history: Current every day smoker Have you smoked in the past 12 months: Yes Aproximately how many cigarettes per day: 5 - Alcohol/Substance Use Hx Alcohol Use: Yes (SOCIAL) History - Admission Reason For Visit: AMS,FEVER,ARF - Diagnostics X-ray: Report Reviewed CT Scan: Report Reviewed Other: Report Reviewed (emg) - General Mental Status: Awake and Alert, Combative (verbally. "i'm tired of doing things against my will." eg Open your mouth.), Flat Affect, Uncooperative (limited. Resistent) Attention: Distractible (No visual tracking/eye contact with eyes open. Vision? Closes eyes, c/o feeling tired, refusing to re-open.) Ability to Follow Directions: Fair (Very slow to respond verbally and Motorically. eg - "Wait a minute"-to open mouth delay of 10 seconds. Suspect leroy -motor/Limb Apraxia) Head/Neck Control: Needs Assist - Hearing Hearing: Normal Speech Evaluation - Communication Primary Language: K[place] Communication: Yes: Simple Responses (Bursts of speech. Rigid articulatory movement, reduced excursion, Monotonous prosody.) Oral Expression Ability: Yes: Moderate Impairment - Speech Production Apraxia: Yes Intelligibility: Yes: Mildly Impaired - Speech Characteristics Voice Loudness: Normal Voice Pitch: Yes: Normal Voice Phonatory-based Quality: Yes: Normal Speech Pattern: Impaired Speech Clarity: < 75% Nasal Resonance: Normal Articulation: Yes: Imprecise Rate of Speech: Too Fast Voice, Other Observations: Yes: Disordered Intonation - Language/Auditory Comprehension Follows: Yes: 1 Stage Simple Commands Observation: Able to respond to yes/no queries: Yes, Yes/No Confusion: No, Comprehends Conversational Speech: Yes - Swallow Evaluation/Bedside Assessment Current Nutritional Intake: NPO Oral Secretions: Yes: WFL Dentition: Yes: Adequate Facial Symmetry at Rest: Symmetrical Jaw Position: Closed at Rest, Other (Difficult to volitionally relax/open mouth. Delay.EG to accept tsp of applesauce, pt retracts lips, with upper/lower teeth together. Needs verbal cues to "open teeth, further" insert spoon, tell pt "use lips to take food. Oral holding. Delayed posterior transit. Swallow in isolation is brisk but untimely. Responsive cough with thin liquid.(Told to take one sip- He guzzled entire cup, with responsive weak cough, with lips closed! Unable to open mouth to cough. Reponsive brief cough with applesauce as well.) Lingual Movement: Unable to Perform Laryngeal Movement: Able to Palpate, Labored,delay initiation Rate of Intake: Slow/Holding, Impulsive Bolus Size: Small Chewing: Impaired Oral Prep Time: Increased A-P Transit: Impaired Timing of Swallow: Delayed Coughing/Throat Clear: Yes Change in Voice: No Recommendations - Speech Evaluation, Impression/Plan Impression: Oral/limb Apraxia. Bursts of monotonous speech. Verbally combative. Insight? Distractible. Vision? Poor tracking/eye contact. Severe oral apraxia/ dysphagia with untimely swallow.Intermittent aspiration especially on thin water. Impulsive intake. Secondary to Toxic metabolic encephalopathy. Difficult to volitionally relax/open mouth. Delayed ability to open mouth to accept tsp of applesauce,With cues, pt retracts lips, with upper/lower teeth still closed together. Needs verbal cues to "open teeth, further" insert spoon, tell pt "use lips to take food. Delayed cough intermittently. - Disposition Discharge to: To be Determined - Dysphagia Impressions/Plan Swallowing Skills: Impaired Dysphagia Impressions: Moderate Impairment, Ongoing Evaluation, Suspect Aspiration *Silent aspiration: cannot be R/O at bedside Recommendations: Modified Barium Swallow, Other (NPO if cough, throat clearing, congestion, fever) - Recommendations Diet Consistency: Dysphagia Pureed ("Open mouth""open teeth, further" insert spoon, tell pt "use lips to take food.""swallow" Monitor for cough, throat clearing, congestion.) Medication Administration: Crushed with applesauce Liquids: [place] Thick (on tsp only for now."Open mouth""open teeth, further" insert spoon, tell pt "use lips to take food.""swallow" Monitor for cough, throat clearing, congestion.) Supplement: Magic Cup, Ensure Pudding
--- NOTE | 2017-11-02 10:58 | PN ---
Progress Note, Physician History of Present Illness: Awake but lethargic Denies pain Complains of thirst Denies chest pain/ dyspnea / cough Febrile overnight - Current Medication List Current Medications: Active Medications Chlorhexidine Gluconate (Hibiclens For Decolonization -) 1 applic TP HS [facility] Last Admin: 11/01/17 23:37 Dose: 1 applic Heparin Sodium (Porcine) (Heparin -) 5,000 unit SQ TID [facility] Last Admin: 11/02/17 05:59 Dose: 5,000 unit Sodium Chloride (Normal Saline -) 1,000 mls @ 150 mls/hr IV ASDIR [facility] Last Admin: 11/02/17 05:56 Dose: 150 mls/hr Levofloxacin (Levaquin 250 Mg Premixed Ivpb -) 250 mg in 50 mls @ 50 mls/hr IVPB Q48H [facility]; Protocol Last Admin: 11/02/17 10:14 Dose: Not Given Sodium Chloride (Normal Saline -) 250 mls @ 3,000 mls/hr IV PRN PRN PRN Reason: Hypotension during Dialysis Stop: 11/03/17 09:41 Mupirocin (Bactroban Ointment (For Decolonization) -) 1 applic NS BID [facility] Stop: 11/06/17 21:59 Last Admin: 11/01/17 23:37 Dose: 1 applic - Objective Vital Signs: Vital Signs Temperature 97.6 F 11/02/17 04:00 Pulse Rate 80 11/02/17 08:00 Respiratory Rate 22 11/02/17 08:00 Blood Pressure 138/87 11/02/17 08:00 O2 Sat by Pulse Oximetry (%) 100 11/02/17 09:00 Constitutional: Yes: No Distress Eyes: Yes: Conjunctiva Clear Cardiovascular: Yes: Regular Rate and Rhythm, S1, S2 Respiratory: Yes: Diminished, Other (poor inspiratory effort) Gastrointestinal: Yes: Normal Bowel Sounds, Soft. No: Tenderness Edema: Yes Labs: CBC, BMP 11/02/17 05:30 11/02/17 05:30 INR, PTT INR 1.36 (0.83-1.09) H 11/02/17 05:30 Assessment/Plan Legionella pneumonia Toxic metabolic encephalopathy Renal failure Elevated LFTs Continue levaquin, adjusted for renal failure
[2017-11-02] MEDS ORDERED: FUROSEMIDE 100 MG/10 ML INJECTABLE VIAL IVPB ONE (11:32)
[2017-11-02] MEDS ORDERED: DEXTROSE 5%-WATER - 1,000 ML with SODIUM BICARBONATE 8.4% - 150 MEQ IV SCH (11:45)
--- NOTE | 2017-11-02 11:45 | PN ---
Progress Note (short form) - Note Progress Note: Renal Follow up for [place] Pt seen and examined at the bedside awake and alert but groggy remains oliguirc on IVF afebrile now Vital Signs Temperature 97.6 F 11/02/17 04:00 Pulse Rate 80 11/02/17 08:00 Respiratory Rate 22 11/02/17 08:00 Blood Pressure 138/87 11/02/17 08:00 O2 Sat by Pulse Oximetry (%) 100 11/02/17 09:00 Intake & Output 10/30/17 10/31/17 11/01/17 11/02/17 23:59 23:59 23:59 23:59 Intake Total 1625 1050 Output Total 200 300 Balance 1425 750 Weight 86.183 kg 104.462 kg NAD, groggy RRR, No M/R Dec BS at lung bases soft NT/ND Trace LE edema CBC, BMP 11/02/17 05:30 11/02/17 05:30 Current Medications Chlorhexidine Gluconate (Hibiclens For Decolonization -) 1 applic TP HS [facility] Last Admin: 11/01/17 23:37 Dose: 1 applic Furosemide (Lasix Injection -) 100 mg IVPB ONCE ONE Stop: 11/02/17 11:33 Heparin Sodium (Porcine) (Heparin -) 5,000 unit SQ TID [facility] Last Admin: 11/02/17 05:59 Dose: 5,000 unit Levofloxacin (Levaquin 250 Mg Premixed Ivpb -) 250 mg in 50 mls @ 50 mls/hr IVPB Q48H [facility]; Protocol Last Admin: 11/02/17 10:14 Dose: Not Given Sodium Chloride (Normal Saline -) 250 mls @ 3,000 mls/hr IV PRN PRN PRN Reason: Hypotension during Dialysis Stop: 11/03/17 09:41 Sodium Bicarbonate 150 meq/ (Dextrose) 1,150 mls @ 150 mls/hr IV .Q8H [facility] Midazolam HCl (Versed -) 2 mg IVPUSH ONCE ONE Stop: 11/02/17 10:56 Mupirocin (Bactroban Ointment (For Decolonization) -) 1 applic NS BID [facility] Stop: 11/06/17 21:59 Last Admin: 11/01/17 23:37 Dose: 1 applic 32 year old AA gentleman with no significant PMhx who presented to the ED with fever and AMS and found to have Acute Renal Injury, Liver injury, Fever and lethargy. #Acute Renal Injury secondary to legionella infection + Pigment injury from Rhabdo #AMS #Fever #Metabolic acidosis #Elevated LDH/Hemolysis/Thrombocytopenia Plan to start dialysis today Risks/Benefits of dialysis explained to mother who consented for procedure will change IVF to bicarb gtt with goal of alkalizing urine to ph > 6.5 will need to monitor serum ABG to ensure ph does not exceed 7.5 and corrected CA remains > 7 Give Lasix 100mg IVPB to force diuresis Continue Abx as per ID will plan for additional dialysis tomorrow Rojas Edmondson DO
--- NOTE | 2017-11-02 11:50 | PN ---
Teaching Attending Note Name of Resident: Doug Gil ATTENDING PHYSICIAN STATEMENT I saw and evaluated the patient. I reviewed the resident's note and discussed the case with the resident. I agree with the resident's findings and plan as documented. SUBJECTIVE: Pt seen and examined in the ICU. Remains lethargic but arousable. Febrile overnight. Oliguric despite IVF. OBJECTIVE: Vital Signs Period Temp Pulse Resp BP Sys/Dangelo Pulse Ox Last 24 Hr 97.6 F-98.8 F 67-108 18-137 125-146/76-94 100-100 Intake & Output 10/30/17 10/31/17 11/01/17 11/02/17 23:59 23:59 23:59 23:59 Intake Total 1625 1050 Output Total 200 300 Balance 1425 750 Weight 86.183 kg 104.462 kg Gen: lethargic but arousable Heart: RRR Lung: decreased breath sounds at the bases Abd: soft, nontender Ext: + edema CBC, BMP 11/02/17 05:30 11/02/17 05:30 Active Medications Chlorhexidine Gluconate (Hibiclens For Decolonization -) 1 applic TP HS [facility] Last Admin: 11/01/17 23:37 Dose: 1 applic Furosemide (Lasix Injection -) 100 mg IVPB ONCE ONE Stop: 11/02/17 11:33 Heparin Sodium (Porcine) (Heparin -) 5,000 unit SQ TID [facility] Last Admin: 11/02/17 05:59 Dose: 5,000 unit Levofloxacin (Levaquin 250 Mg Premixed Ivpb -) 250 mg in 50 mls @ 50 mls/hr IVPB Q48H [facility]; Protocol Last Admin: 11/02/17 10:14 Dose: Not Given Sodium Chloride (Normal Saline -) 250 mls @ 3,000 mls/hr IV PRN PRN PRN Reason: Hypotension during Dialysis Stop: 11/03/17 09:41 Sodium Bicarbonate 150 meq/ (Dextrose) 1,150 mls @ 150 mls/hr IV .Q8H [facility] Midazolam HCl (Versed -) 2 mg IVPUSH ONCE ONE Stop: 11/02/17 10:56 Mupirocin (Bactroban Ointment (For Decolonization) -) 1 applic NS BID [facility] Stop: 11/06/17 21:59 Last Admin: 11/01/17 23:37 Dose: 1 applic ASSESSMENT AND PLAN: Legionella Pneumonia Severe Sepsis Acute Kidney Injury Metabolic Acidosis Altered Mental Status Thrombocytopenia Hyponatremia Elevated LFTs +Troponins likely Demand Ischemia - antibiotics per ID - will need HD catheter placement and HD - lasix per renal - monitor urine output, creatinine - monitor ABG - monitor CBC - trend LFTs - continue ICU monitoring critical care time spent in reviewing chart, evaluating patient and formulating plan 35 min
[2017-11-02] MEDS ORDERED: morphine SULFATE 4 MG/ML VIAL ONE (12:01)
[2017-11-02] MEDS ORDERED: MIDAZOLAM HCL 2 MG/2 ML SINGLE DOSE VIAL IVPUSH ONE (12:15)
[2017-11-02] MEDS ORDERED: morphine SULFATE 4 MG/ML VIAL IVPUSH ONE (12:26)
--- NOTE | 2017-11-02 12:29 | PROC ---
Central Line Insertion Indication: Other (Dialysis) Risks and Benefits Explained: Yes Consent on Chart: Yes Central Line: Dialysis Cath, Tri Lumen Anesthesia: 1% Lidocaine Sterile Technique: Yes Ultrasound Guided Assistance: Yes Position: Right Internal Jugular Sterile Dressing Applied: Yes Remarks: RIJ trialysis placed under sterile conditions with ultrasound guidance with lidocaine 1% for local anesthetic with supervision under Dr. Sonia Oviedo and Dr. Suarez. Modified seldinger technique used to insert guide wire and trialysis catheter. Guide wire removed. Placement confirmed with CXR.
--- NOTE | 2017-11-02 12:43 | PN ---
Physical Exam: SUBJECTIVE: Patient seen and examined at bedside. Pt is obtunded, but opens eyes upon physical stimuli. Unable to speak to pt as he is drowsy. OBJECTIVE: Vital Signs Period Temp Pulse Resp BP Sys/Dangelo Pulse Ox Last 24 Hr 97.6 F-98.8 F 67-108 20-137 125-146/76-94 100-100 GENERAL: No acute distress. AAOx1. Slurred speech. Arousable with physical stimuli. HEENT: AT/NC. Moist mucus membrane. No facial droop noted. B/l pupil sluggishly reactive to light. No erythema noted in oropharynx. Tracks with eyes but is very sluggish. NECK: supple without lymphadenopathy, minimal JVD noted LUNGS: Some mild wheezing, no crackles noted. HEART: Regular, rate, and rhythm, no murmurs noted. ABDOMEN: Soft, obese, no masses or organomegaly noted. +lower abdominal tenderness. UPPER EXTREMITIES: 2+ pulses, well-perfused. No cyanosis. No clubbing. No peripheral edema. Cool b/l extremities. 4/5 muscle strength b/l extremities. LOWER EXTREMITIES: 2+ pulses, well-perfused. No calf tenderness. No peripheral edema. Cool b/l extremities. 2/5 muscle strength b/l extremities. NEUROLOGICAL: Responds to commands. SKIN: Warm, dry, normal turgor, no rashes or lesions noted, normal capillary refill. Laboratory Results - last 24 hr 11/01/17 11/01/17 11/01/17 03:27 03:27 07:50 WBC RBC Hgb Hct MCV MCH MCHC RDW Plt Count MPV Absolute Neuts (auto) Neutrophils % Lymphocytes % Monocytes % Eosinophils % Basophils % Nucleated RBC % ESR Haptoglobin 266 H PT with INR INR PTT (Actin FS) Puncture Site ABG pH ABG pCO2 at Pt Temp ABG pO2 at Pt Temp ABG HCO3 ABG O2 Sat (Measured) ABG O2 Content ABG Base Excess Julio Cesar Test O2 Delivery Device Oxygen Flow Rate Sodium 131 L Potassium 3.7 Chloride 99 Carbon Dioxide 17 L Anion Gap 15 BUN 65 H Creatinine 8.6 H* Creat Clearance w eGFR 7.28 Random Glucose 113 H Serum Osmolality Calcium 6.7 L* Phosphorus 5.0 H Magnesium 2.6 H Total Bilirubin 1.7 H Direct Bilirubin 1.4 H AST 371 H D ALT 214 H D Alkaline Phosphatase 65 D LD Total 1744 H Creatine Kinase 27154 H Creatine Kinase Index 0.0 CK-MB (CK-2) 10.95 H Troponin I 0.18 H D Total Protein 5.6 L Albumin 2.1 L Urine Osmolality Salicylates < 4.0 Hepatitis A IgM Ab Negative Hep Bs Antigen Negative Hep B Core IgM Ab Negative Hepatitis C Antibody <0.1 Direct Antiglob Test 11/01/17 11/01/17 11/01/17 07:50 09:55 10:31 WBC RBC Hgb Hct MCV MCH MCHC RDW Plt Count MPV Absolute Neuts (auto) Neutrophils % Lymphocytes % Monocytes % Eosinophils % Basophils % Nucleated RBC % ESR 71 H Haptoglobin PT with INR INR PTT (Actin FS) Puncture Site ABG pH ABG pCO2 at Pt Temp ABG pO2 at Pt Temp ABG HCO3 ABG O2 Sat (Measured) ABG O2 Content ABG Base Excess Julio Cesar Test O2 Delivery Device Oxygen Flow Rate Sodium Potassium Chloride Carbon Dioxide Anion Gap BUN Creatinine Creat Clearance w eGFR Random Glucose Serum Osmolality Calcium Phosphorus Magnesium Total Bilirubin Direct Bilirubin AST ALT Alkaline Phosphatase LD Total Creatine Kinase Creatine Kinase Index CK-MB (CK-2) Troponin I Total Protein Albumin Urine Osmolality 305 Salicylates Hepatitis A IgM Ab Hep Bs Antigen Hep B Core IgM Ab Hepatitis C Antibody Direct Antiglob Test Negative 11/01/17 11/01/17 11/01/17 10:31 10:31 12:50 WBC RBC Hgb Hct MCV MCH MCHC RDW Plt Count MPV Absolute Neuts (auto) Neutrophils % Lymphocytes % Monocytes % Eosinophils % Basophils % Nucleated RBC % ESR Haptoglobin PT with INR INR PTT (Actin FS) Puncture Site Right radial ABG pH 7.36 ABG pCO2 at Pt Temp 28.9 L ABG pO2 at Pt Temp 86.8 ABG HCO3 16.0 L ABG O2 Sat (Measured) 96.5 ABG O2 Content 18.2 ABG Base Excess -7.7 L Julio Cesar Test Positive O2 Delivery Device Room air Oxygen Flow Rate 21% Sodium Potassium Chloride Carbon Dioxide Anion Gap BUN Creatinine Creat Clearance w eGFR Random Glucose Serum Osmolality 296 Calcium Phosphorus Magnesium Total Bilirubin Direct Bilirubin AST ALT Alkaline Phosphatase LD Total Creatine Kinase Creatine Kinase Index CK-MB (CK-2) Troponin I Total Protein Albumin Urine Osmolality Salicylates < 4.0 Hepatitis A IgM Ab Hep Bs Antigen Hep B Core IgM Ab Hepatitis C Antibody Direct Antiglob Test 11/01/17 11/01/17 11/01/17 12:59 18:00 21:50 WBC RBC Hgb Hct MCV MCH MCHC RDW Plt Count MPV Absolute Neuts (auto) Neutrophils % Lymphocytes % Monocytes % Eosinophils % Basophils % Nucleated RBC % ESR Haptoglobin PT with INR INR PTT (Actin FS) Puncture Site ABG pH ABG pCO2 at Pt Temp ABG pO2 at Pt Temp ABG HCO3 ABG O2 Sat (Measured) ABG O2 Content ABG Base Excess Julio Cesar Test O2 Delivery Device Oxygen Flow Rate Sodium 134 L 131 L 134 L Potassium 3.9 4.2 3.9 Chloride 101 100 102 Carbon Dioxide 17 L 17 L 15 L Anion Gap 16 14 17 H BUN 69 H 71 H 75 H Creatinine 8.7 H* 8.9 H* 9.0 H* Creat Clearance w eGFR 7.18 6.99 6.90 Random Glucose 101 76 D 86 Serum Osmolality Calcium 6.8 L* 7.3 L 7.0 L Phosphorus Magnesium Total Bilirubin 1.5 H 1.3 H Direct Bilirubin AST 354 H 323 H ALT 219 H 194 H Alkaline Phosphatase 68 65 LD Total Creatine Kinase Creatine Kinase Index CK-MB (CK-2) Troponin I Total Protein 5.9 L 5.5 L Albumin 2.2 L 2.0 L Urine Osmolality Salicylates Hepatitis A IgM Ab Hep Bs Antigen Hep B Core IgM Ab Hepatitis C Antibody Direct Antiglob Test 11/02/17 11/02/17 11/02/17 03:15 03:15 05:30 WBC 6.0 RBC 3.90 L Hgb 11.8 Hct 34.0 L MCV 87.3 MCH 30.3 MCHC 34.7 RDW 13.1 Plt Count 105 L MPV 8.5 Absolute Neuts (auto) 4.6 Neutrophils % 76.0 Lymphocytes % 14.2 D Monocytes % 9.3 Eosinophils % 0.1 D Basophils % 0.4 D Nucleated RBC % 0 ESR Haptoglobin PT with INR INR PTT (Actin FS) Puncture Site Left radial ABG pH 7.38 ABG pCO2 at Pt Temp 20.5 L D ABG pO2 at Pt Temp 98.3 ABG HCO3 11.9 L* ABG O2 Sat (Measured) 97.6 ABG O2 Content 16.9 ABG Base Excess -11.1 L* Julio Cesar Test Positive O2 Delivery Device Room air Oxygen Flow Rate 21% Sodium 134 L Potassium 3.7 Chloride 102 Carbon Dioxide 13 L Anion Gap 19 H BUN 82 H Creatinine 9.5 H* Creat Clearance w eGFR 6.49 Random Glucose 90 Serum Osmolality Calcium 7.0 L Phosphorus Magnesium Total Bilirubin 1.3 H Direct Bilirubin AST 314 H ALT 188 H Alkaline Phosphatase 64 LD Total Creatine Kinase Creatine Kinase Index CK-MB (CK-2) Troponin I Total Protein 5.4 L Albumin 2.0 L Urine Osmolality Salicylates Hepatitis A IgM Ab Hep Bs Antigen Hep B Core IgM Ab Hepatitis C Antibody Direct Antiglob Test 11/02/17 11/02/17 05:30 05:30 WBC RBC Hgb Hct MCV MCH MCHC RDW Plt Count MPV Absolute Neuts (auto) Neutrophils % Lymphocytes % Monocytes % Eosinophils % Basophils % Nucleated RBC % ESR Haptoglobin PT with INR 15.40 H INR 1.36 H PTT (Actin FS) 34.0 Puncture Site ABG pH ABG pCO2 at Pt Temp ABG pO2 at Pt Temp ABG HCO3 ABG O2 Sat (Measured) ABG O2 Content ABG Base Excess Julio Cesar Test O2 Delivery Device Oxygen Flow Rate Sodium 133 L Potassium 3.8 Chloride 101 Carbon Dioxide 14 L Anion Gap 18 H BUN 83 H Creatinine 9.7 H* Creat Clearance w eGFR 6.33 Random Glucose 88 Serum Osmolality Calcium 7.1 L Phosphorus 4.7 Magnesium 2.4 Total Bilirubin 1.3 H Direct Bilirubin AST 294 H ALT 181 H Alkaline Phosphatase 62 LD Total Creatine Kinase 82309 H Creatine Kinase Index 0.0 CK-MB (CK-2) 4.41 H Troponin I Total Protein 5.2 L Albumin 2.0 L Urine Osmolality Salicylates Hepatitis A IgM Ab Hep Bs Antigen Hep B Core IgM Ab Hepatitis C Antibody Direct Antiglob Test Active Medications Generic Name Dose Route Start Last Admin Trade Name Freq PRN Reason Stop Dose Admin Chlorhexidine Gluconate 1 applic 11/01/17 22:00 11/01/17 23:37 Hibiclens For Decolonization - TP 1 applic HS ODILIA Administration Heparin Sodium (Porcine) 5,000 unit 11/01/17 06:00 11/02/17 05:59 Heparin - SQ 5,000 unit TID ODILIA Administration Levofloxacin 250 mg in 50 mls @ 50 mls/hr 11/02/17 10:00 11/02/17 10:14 Levaquin 250 Mg Premixed Ivpb - IVPB Not Given Q48H [facility] Protocol Sodium Chloride 250 mls @ 3,000 mls/hr 11/02/17 09:41 Normal Saline - IV 11/03/17 09:41 PRN PRN Hypotension during Dialysis Sodium Bicarbonate 150 meq/ 1,150 mls @ 150 mls/hr 11/02/17 11:45 Dextrose IV .Q8H [facility] Mupirocin 1 applic 11/01/17 22:00 11/01/17 23:37 Bactroban Ointment (For Decolonization) - NS 11/06/17 21:59 1 applic BID ODILIA Administration UA: 2+ protein, 3+ blood with minimal RBC's, 4 WBC's Tox screen: +Marijuana, <4.0 Salicylates IMAGING: Head CT: No evidence of acute intracranial hemmorhage, edema, midline shift, mass effect, or skull fx. No CT evidence of acute territorial infarction. Abd U/S: Borderline hepatosplenomegaly w/ no evidence of acute pathology within the abdomen. Liver is borderline enlarged measuring 17.6 cm in craniocaudad dimension. It is homogenous in teexture. There is an echogenic mass within the L lobe measuring 2.cm. This is consistent w/ a hemangioma. No additional intrahepatic masses are identified. The portal flow is documented within the main portal vein. CT Abd/Pel w/o contrast: 1. Extensive L lower lobe consolidation suspicious for acute pna. There is a lesser degree of consolidation/atelectasis within the R lung base. 2. Limited study w/ no gross evidence of acute pathology within the abdomen or pelvis. EMG: pending report ASSESSMENT/PLAN: 32M w/ no significant pmhx presented to the hospital with AMS per family, persistent diarrhea, as well as bowel incontinence since . #Pneumonia 2/2 to likely Legionella; Presumptive +Legionella Ag. -In ED, Vanc/Zosyn/Flagyl given -Per ID: cont Levofloxacin 750 mg @ 100cc/hr (Day 2) -f/u Legionella serology #Toxic Metabolic Encephalopathy -f/u CSF culture to r/o meningitis; 2 gm rocephin given for coverage immediately following LP -Per Neuro: Neuro check Q1H. Aspiration precautions. Nerve conduction testing electromyography of the lower extremities showed mild neuropathy which is not very helpful. -CSF rechecked, no proteins present, clear CSF -blood cx (-)x24h; urine cx no growth obtained -CSF gram stain: No organisms seen. No polymorphonuclear WBC observed. #Acute Renal Failure likely 2/2 Legionella infection vs. HUS/TTP vs. Rhabdo; Pt dialyzed today. -Per nephro, pt will need monitor serum ABG to ensure pH is not > 7.5 and corrected Ca remains > 7. Will plan for for dialysis tomorrow. Lasix 100mg IVPB to force diuresis. Goal urine pH goal > 6.5, d/c IVF to bicarb gtt. will plan for additional dialysis tomorrow -F/u ADAMTS-13, C-anca, P-anca, immunology panel pending #[place]; [place] [address] -cont Bicarb GTT -urine myoglobin #Transaminitis; AST 291, ALT 282. LE's trending down. -Hepatitis panel negative; HIV 1&2, HIV p24 negative -In the ED, Lactulose and Rifaximin were given due to possible hepatic encephalopathy. IV mannitol was also given in case of cerebral edema caused by hepatic encephalopathy -f/u CMP #Mild thrombocytopenia -recheck CBC in AM. -Per Heme: HUS was considered as patient was febrile, had AMS, renal failure, and mild thrombocytopenia. No schistocytes were seen on peripheral smear. Mild thrombocytopenia noted may be secondary to sepsis, liver disease, hypersplenism. -F/u D Bili, haptoglobin, fibrinogen, and LDH. #Mild troponinemia -Possibly due to demand ischemia with sepsis -ECG noted: sinus rhythm, no acute ST elevations or depressions #DVT Prophylaxis -Heparin 5000 units SQ TID #FEN -Sodium Bicarb 150 mg @ 150cc/hr -serial CMP Q6H, possible HD in AM -dysphagia puree diet, nectar thick liquid per SS eval Disposition -cont to monitor in ICU Visit type - Emergency Visit Emergency Visit: Yes ED Registration Date: 11/01/17 Care time: The patient presented to the Emergency Department on the above date and was hospitalized for further evaluation of their emergent condition. - New Patient This patient is new to me today: No - Critical Care Critical Care patient: Yes Total Critical Care Time (in minutes): 35 (35) Critical Care Statement: The care of this patient involved high complexity decision making to prevent further life threatening deterioration of the patient 's condition and/or to evaluate & treat vital organ system(s) failure or risk of failure.
--- NOTE | 2017-11-02 13:26 | PN ---
Physical Exam: SUBJECTIVE: Patient seen and examined this am in icu. Remains lethargic. Denies any sob or cp. Just underwent placement of Trialysis catheter RIJ. Currently undergoing dialysis. OBJECTIVE: Vital Signs Period Temp Pulse Resp BP Sys/Dangelo Pulse Ox Last 24 Hr 97.6 F-98.8 F 67-108 20-137 125-146/76-94 100-100 GENERAL: Lethargic HEAD: NC/AT EYES: EOMI ENT: MMM NECK: No JVD LUNGS: Dec BS at Bases. HEART: RRR, no MRG ABDOMEN: NT, ND, No HSM. EXTREMITIES: Cool to touch. NEUROLOGICAL: Cranial nerves II through XII grossly intact. Normal speech, gait not observed. SKIN: No rashes or gross abnormalities. Laboratory Results - last 24 hr 11/01/17 11/01/17 11/01/17 03:27 03:27 07:50 WBC RBC Hgb Hct MCV MCH MCHC RDW Plt Count MPV Absolute Neuts (auto) Neutrophils % Lymphocytes % Monocytes % Eosinophils % Basophils % Nucleated RBC % ESR Haptoglobin 266 H PT with INR INR PTT (Actin FS) Puncture Site ABG pH ABG pCO2 at Pt Temp ABG pO2 at Pt Temp ABG HCO3 ABG O2 Sat (Measured) ABG O2 Content ABG Base Excess Julio Cesar Test O2 Delivery Device Oxygen Flow Rate Sodium 131 L Potassium 3.7 Chloride 99 Carbon Dioxide 17 L Anion Gap 15 BUN 65 H Creatinine 8.6 H* Creat Clearance w eGFR 7.28 Random Glucose 113 H Calcium 6.7 L* Phosphorus 5.0 H Magnesium 2.6 H Total Bilirubin 1.7 H Direct Bilirubin 1.4 H AST 371 H D ALT 214 H D Alkaline Phosphatase 65 D LD Total 1744 H Creatine Kinase 66541 H Creatine Kinase Index 0.0 CK-MB (CK-2) 10.95 H Troponin I 0.18 H D Total Protein 5.6 L Albumin 2.1 L Vitamin B12 Salicylates < 4.0 Hepatitis A IgM Ab Negative Hep Bs Antigen Negative Hep B Core IgM Ab Negative Hepatitis C Antibody <0.1 Direct Antiglob Test 11/01/17 11/01/17 11/01/17 07:50 10:31 10:31 WBC RBC Hgb Hct MCV MCH MCHC RDW Plt Count MPV Absolute Neuts (auto) Neutrophils % Lymphocytes % Monocytes % Eosinophils % Basophils % Nucleated RBC % ESR 71 H Haptoglobin PT with INR INR PTT (Actin FS) Puncture Site ABG pH ABG pCO2 at Pt Temp ABG pO2 at Pt Temp ABG HCO3 ABG O2 Sat (Measured) ABG O2 Content ABG Base Excess Julio Cesar Test O2 Delivery Device Oxygen Flow Rate Sodium Potassium Chloride Carbon Dioxide Anion Gap BUN Creatinine Creat Clearance w eGFR Random Glucose Calcium Phosphorus Magnesium Total Bilirubin Direct Bilirubin AST ALT Alkaline Phosphatase LD Total Creatine Kinase Creatine Kinase Index CK-MB (CK-2) Troponin I Total Protein Albumin Vitamin B12 Salicylates < 4.0 Hepatitis A IgM Ab Hep Bs Antigen Hep B Core IgM Ab Hepatitis C Antibody Direct Antiglob Test Negative 11/01/17 11/01/17 11/01/17 12:59 18:00 21:50 WBC RBC Hgb Hct MCV MCH MCHC RDW Plt Count MPV Absolute Neuts (auto) Neutrophils % Lymphocytes % Monocytes % Eosinophils % Basophils % Nucleated RBC % ESR Haptoglobin PT with INR INR PTT (Actin FS) Puncture Site ABG pH ABG pCO2 at Pt Temp ABG pO2 at Pt Temp ABG HCO3 ABG O2 Sat (Measured) ABG O2 Content ABG Base Excess Julio Cesar Test O2 Delivery Device Oxygen Flow Rate Sodium 134 L 131 L 134 L Potassium 3.9 4.2 3.9 Chloride 101 100 102 Carbon Dioxide 17 L 17 L 15 L Anion Gap 16 14 17 H BUN 69 H 71 H 75 H Creatinine 8.7 H* 8.9 H* 9.0 H* Creat Clearance w eGFR 7.18 6.99 6.90 Random Glucose 101 76 D 86 Calcium 6.8 L* 7.3 L 7.0 L Phosphorus Magnesium Total Bilirubin 1.5 H 1.3 H Direct Bilirubin AST 354 H 323 H ALT 219 H 194 H Alkaline Phosphatase 68 65 LD Total Creatine Kinase Creatine Kinase Index CK-MB (CK-2) Troponin I Total Protein 5.9 L 5.5 L Albumin 2.2 L 2.0 L Vitamin B12 Salicylates Hepatitis A IgM Ab Hep Bs Antigen Hep B Core IgM Ab Hepatitis C Antibody Direct Antiglob Test 11/02/17 11/02/17 11/02/17 03:15 03:15 05:30 WBC 6.0 RBC 3.90 L Hgb 11.8 Hct 34.0 L MCV 87.3 MCH 30.3 MCHC 34.7 RDW 13.1 Plt Count 105 L MPV 8.5 Absolute Neuts (auto) 4.6 Neutrophils % 76.0 Lymphocytes % 14.2 D Monocytes % 9.3 Eosinophils % 0.1 D Basophils % 0.4 D Nucleated RBC % 0 ESR Haptoglobin PT with INR INR PTT (Actin FS) Puncture Site Left radial ABG pH 7.38 ABG pCO2 at Pt Temp 20.5 L D ABG pO2 at Pt Temp 98.3 ABG HCO3 11.9 L* ABG O2 Sat (Measured) 97.6 ABG O2 Content 16.9 ABG Base Excess -11.1 L* Julio Cesar Test Positive O2 Delivery Device Room air Oxygen Flow Rate 21% Sodium 134 L Potassium 3.7 Chloride 102 Carbon Dioxide 13 L Anion Gap 19 H BUN 82 H Creatinine 9.5 H* Creat Clearance w eGFR 6.49 Random Glucose 90 Calcium 7.0 L Phosphorus Magnesium Total Bilirubin 1.3 H Direct Bilirubin AST 314 H ALT 188 H Alkaline Phosphatase 64 LD Total Creatine Kinase Creatine Kinase Index CK-MB (CK-2) Troponin I Total Protein 5.4 L Albumin 2.0 L Vitamin B12 Salicylates Hepatitis A IgM Ab Hep Bs Antigen Hep B Core IgM Ab Hepatitis C Antibody Direct Antiglob Test 11/02/17 11/02/17 11/02/17 05:30 05:30 09:15 WBC RBC Hgb Hct MCV MCH MCHC RDW Plt Count MPV Absolute Neuts (auto) Neutrophils % Lymphocytes % Monocytes % Eosinophils % Basophils % Nucleated RBC % ESR Haptoglobin PT with INR 15.40 H INR 1.36 H PTT (Actin FS) 34.0 Puncture Site ABG pH ABG pCO2 at Pt Temp ABG pO2 at Pt Temp ABG HCO3 ABG O2 Sat (Measured) ABG O2 Content ABG Base Excess Julio Cesar Test O2 Delivery Device Oxygen Flow Rate Sodium 133 L Potassium 3.8 Chloride 101 Carbon Dioxide 14 L Anion Gap 18 H BUN 83 H Creatinine 9.7 H* Creat Clearance w eGFR 6.33 Random Glucose 88 Calcium 7.1 L Phosphorus 4.7 Magnesium 2.4 Total Bilirubin 1.3 H Direct Bilirubin AST 294 H ALT 181 H Alkaline Phosphatase 62 LD Total Creatine Kinase 20856 H Creatine Kinase Index 0.0 CK-MB (CK-2) 4.41 H Troponin I Total Protein 5.2 L Albumin 2.0 L Vitamin B12 1558 H Salicylates Hepatitis A IgM Ab Hep Bs Antigen Hep B Core IgM Ab Hepatitis C Antibody Direct Antiglob Test Active Medications Generic Name Dose Route Start Last Admin Trade Name Tatyana PRN Reason Stop Dose Admin Chlorhexidine Gluconate 1 applic 11/01/17 22:00 11/01/17 23:37 Hibiclens For Decolonization - TP 1 applic HS ODILIA Administration Heparin Sodium (Porcine) 5,000 unit 11/01/17 06:00 11/02/17 05:59 Heparin - SQ 5,000 unit TID ODILIA Administration Levofloxacin 250 mg in 50 mls @ 50 mls/hr 11/02/17 10:00 11/02/17 10:14 Levaquin 250 Mg Premixed Ivpb - IVPB Not Given Q48H [facility] Protocol Sodium Chloride 250 mls @ 3,000 mls/hr 11/02/17 09:41 Normal Saline - IV 11/03/17 09:41 PRN PRN Hypotension during Dialysis Sodium Bicarbonate 150 meq/ 1,150 mls @ 150 mls/hr 11/02/17 11:45 Dextrose IV .Q8H ODILIA Mupirocin 1 applic 11/01/17 22:00 11/01/17 23:37 Bactroban Ointment (For Decolonization) - NS 11/06/17 21:59 1 applic BID ODILIA Administration ASSESSMENT/PLAN: Pt is a 32 y/o M with no significant pmh who was at a barbeque a few days ago, developed dark, watery diarrhea and fevers. Pt observed his urine to be darker than usual and was urinating less frequently. BIBA to [facility] c/o generalized weakness and AMS per family. No recent travel or sick contacts. No skin rashes. Neuro- AMS Head CT--> No Intracranial hemmorhage, midline shift, or edema. Pulm-Legionella Pneumonia -Legionella Urine Antigen presumably + - Received vancomycin, zosyn, ceftriaxone and flagyl in ED ID on Board-One dose of Levaquin given Renal: [place] 2/2 Hypoperfusion BUN/CR--> Creatinine continues to rise. 9.7 today, increased from 8.7. Dialysis today. Nephrology Dr Edmondson on board Per Nephro: Continue aggressive IVF hydration with NS, give additional bolus [employer] on hold Abd/Pelvis CT--> Extensive left lower lobe consolidation suspcious for acute pneumonia. Atelectasis/consolidation right lung base. Abdomen Ultrasound--> Hepatosplenomegaly. Per Dr Edmondson--> Change IVF to bicarb gtt with goal of alkalizing urine to ph > 6.5 Lasix 100mg IVPB to force diuresis Monitor serum ABG to ensure ph does not exceed 7.5 and corrected CA remains > 7 Heme: Thrombocytopenia --> 110. May be due to sepsis, liver disease or hypersplenism. Peripheral smear reviewed - NO schistocytes. Dr Lynne Following FEN NS 1,000 mls @ 150 mls/hr Monitor Electrolytes NPO DVT ppx: Heparin 5,000 U SQ BID Dispo: Continue to monitor in icu. Visit type - Emergency Visit Emergency Visit: Yes ED Registration Date: 11/01/17 Care time: The patient presented to the Emergency Department on the above date and was hospitalized for further evaluation of their emergent condition. - New Patient This patient is new to me today: No - Critical Care Critical Care patient: Yes Total Critical Care Time (in minutes): 35 Critical Care Statement: The care of this patient involved high complexity decision making to prevent further life threatening deterioration of the patient 's condition and/or to evaluate & treat vital organ system(s) failure or risk of failure.
--- NOTE | 2017-11-02 15:55 | ECHO ---
Name: ENEIDA CUMMINS Exam:Adult Echocardiogram Study Date: 11/02/2017 09:33 AM Age: 32 yrs Reason For Study: R/O LV DYSFUNCTION Height: 74 in Weight: 190 lb BSA: 2.1 m2 BP: 138/87 mmHg MMode/2D Measurements & Calculations IVSd: 0.84 cm Ao root diam: 2.9 cm LVIDd: 4.3 cm LA dimension: 3.1 cm LVIDs: 3.1 cm LVPWd: 0.80 cm EDV(Teich): 84.5 ml ESV(Teich): 36.9 ml Doppler Measurements & Calculations MV E max sergei: 86.9 cm/sec TR max sergei: 207.7 cm/sec MV A max sergei: 66.6 cm/sec TR max P.4 mmHg MV E/A: 1.3 MV dec time: 0.21 sec Med Peak E' Sergei: 10.9 cm/sec Med E/e': 8.0 Lat Peak E' Sergei: 13.8 cm/sec Lat E/e': 6.3 Left Ventricle The left ventricular size, thickness and function are normal. Right Ventricle The right ventricle is normal in size and function. Atria Normal left and right atrial size and function. Mitral Valve The mitral valve is grossly normal. There is trace mitral regurgitation. Tricuspid Valve The tricuspid valve is not well visualized, but is grossly normal. There is trace tricuspid regurgita tion. Right ventricular systolic pressure is 17 mmhg. Aortic Valve The aortic valve is trileaflet. Pulmonic Valve The pulmonic valve is not well seen, but is grossly normal. Great Vessels The aortic root is normal size. Normal aortic arch, descending and ascending aorta. Pericardium/Pleura There is no pericardial effusion. There is no pleural effusion. Interpretation Summary The left ventricular size, thickness and function are normal The right ventricle is normal in size and function. Normal left and right atrial size and function. There is trace mitral regurgitation. There is trace tricuspid regurgitation. Right ventricular systolic pressure is 17 mmhg. MD Prashanth Borja 11/02/2017 03:55 PM
[2017-11-02] MEDS ORDERED: FUROSEMIDE 40 MG/4 ML INJECTABLE VIAL ONE (18:16)
[2017-11-02 21:20] LABS: ALBUMIN 1.8 g/dl (3.4-5.0); ALK PHOS 64 U/L (45-117); ANION GAP 19 (8-16); BILIRUBIN,TOTAL 1.4 mg/dL (0.2-1.0); BLOOD UREA NITROGEN 65 mg/dL (7-18); CALCIUM 7.2 mg/dL (8.5-10.1); CHLORIDE 102 mmol/L (98-107); CO2 20 mmol/L (21-32); GLUCOSE,RANDOM 86 mg/dL (74-106); POTASSIUM 3.3 mmol/L (3.5-5.1); SGOT/AST 335 U/L (15-37); SGPT/ALT 188 U/L (12-78); SODIUM 141 mmol/L (136-145)
[2017-11-02 21:32] LABS: CREATININE 8.5 mg/dL (0.7-1.3)
[2017-11-02] MEDS: CHLORHEXIDINE GLUCONATE 4% CLEANSER FOR DECOLONIZATION TP SCH (21:50)
[2017-11-02 22:00] LABS: ARTERIAL BLD GAS O2 SATURATION 94.3 % (90-98.9); ARTERIAL BLOOD GAS BASE EXCESS -3.3 meq/l (-2-2)
[2017-11-02 22:01] LABS: ALLENS TEST POSITIVE; ARTERIAL BLOOD GAS pH 7.49 (7.35-7.45)
[2017-11-02 22:02] LABS: ARTERIAL BLOOD GAS PCO2 24.8 mmHg (35-45); ARTERIAL BLOOD GAS PO2 64.4 mmHg (80-100)
[2017-11-03] MEDS ORDERED: ACETAMINOPHEN 1000 MG/100 ML VIAL (NON FORMULARY) IVPB ONE ×2 (02:31→15:00)
[2017-11-03] MEDS ORDERED: DEXTROSE 5%-WATER - 1,000 ML with SODIUM BICARBONATE 8.4% - 150 MEQ IV SCH (02:36)
[2017-11-03 06:05] LABS: HEMATOCRIT 27.9 % (35.4-49); HEMOGLOBIN 9.9 GM/dL (11.7-16.9); MCH 30.9 pg (25.7-33.7); MCHC 35.3 g/dl (32.0-35.9); MEAN CELL VOLUME 87.4 fl (80-96); PLATELET COUNT 124 K/MM3 (134-434); RBC 3.19 M/mm3 (4.00-5.60); RDW 13.4 % (11.9-15.9); WHITE BLOOD COUNT 6.3 K/mm3 (4.0-10.0)
[2017-11-03 06:39] LABS: CHLORIDE 100 mmol/L (98-107); POTASSIUM 3.3 mmol/L (3.5-5.1); SODIUM 136 mmol/L (136-145)
[2017-11-03 06:47] LABS: ALBUMIN 1.7 g/dl (3.4-5.0); ALK PHOS 65 U/L (45-117); ANION GAP 14 (8-16); BILIRUBIN,TOTAL 1.2 mg/dL (0.2-1.0); BLOOD UREA NITROGEN 75 mg/dL (7-18); CALCIUM 7.2 mg/dL (8.5-10.1); CO2 22 mmol/L (21-32); GLUCOSE,RANDOM 117 mg/dL (74-106); MAGNESIUM 2.3 mg/dL (1.8-2.4); PHOSPHOROUS 5.1 mg/dL (2.5-4.9); SGOT/AST 357 U/L (15-37); SGPT/ALT 206 U/L (12-78); TOT PROT 4.8 g/dl (6.4-8.2)
[2017-11-03] MEDS: HEPARIN NA (PORCINE) 5,000 UNITS/ML 1ML VIAL SQ SCH ×3 (07:00→21:10)
[2017-11-03 07:03] LABS: CREATININE 9.7 mg/dL (0.7-1.3)
--- NOTE | 2017-11-03 09:22 | PN ---
Progress Note (short form) - Note Progress Note: receiving HD still fatigued answering questions no complaints no diarrhea Vital Signs Period Temp Pulse Resp BP Sys/Dangelo Pulse Ox Last 24 Hr 98.6 F-103.1 F 65-117 17-35 118-185/66-100 100 cor-rrr lungs bilateral rhonchi abd soft,nt ext no edema minimal urine output CBC, BMP 11/03/17 05:30 11/03/17 05:30 Microbiology 10/31/17 18:05 Blood - Peripheral Venous Blood Culture - Preliminary NO GROWTH OBTAINED AFTER 48 HOURS, INCUBATION TO CONTINUE FOR 3 DAYS. 10/31/17 18:00 Blood - Peripheral Venous Blood Culture - Preliminary NO GROWTH OBTAINED AFTER 48 HOURS, INCUBATION TO CONTINUE FOR 3 DAYS. 11/02/17 05:30 Serum Legionella Serology - Preliminary 10/31/17 23:30 Cerebral Spinal Fluid - Lumbar Puncture Gram Stain - Final 10/31/17 23:30 Cerebral Spinal Fluid - Lumbar Puncture CSF Culture - Preliminary 10/31/17 18:30 Urine - Urine - Catheterized Urine Culture - Final NO GROWTH OBTAINED 11/01/17 09:00 Urine - Urine Sunshien Legionella Antigen - Final 11/01/17 09:00 Urine - Urine Sunshine Streptococcus pneumoniae Antigen (M - Final Laboratory Tests 11/02/17 05:30 Creatine Kinase 62051 H Current Medications Chlorhexidine Gluconate (Hibiclens For Decolonization -) 1 applic TP HS [facility] Last Admin: 11/02/17 21:50 Dose: 1 applic Heparin Sodium (Porcine) (Heparin -) 5,000 unit SQ TID [facility] Last Admin: 11/03/17 07:00 Dose: 5,000 unit Sodium Chloride (Normal Saline -) 250 mls @ 3,000 mls/hr IV PRN PRN PRN Reason: Hypotension during Dialysis Stop: 11/03/17 09:41 Sodium Chloride (Normal Saline -) 250 mls @ 3,000 mls/hr IV PRN PRN PRN Reason: Hypotension during Dialysis Stop: 11/03/17 19:13 Sodium Bicarbonate 150 meq/ (Dextrose) 1,150 mls @ 150 mls/hr IV ASDIR [facility] Last Admin: 11/03/17 03:14 Dose: 150 mls/hr Levofloxacin (Levaquin 500 Mg Premixed Ivpb -) 500 mg in 100 mls @ 100 mls/hr IVPB Q48H [facility]; Protocol Mupirocin (Bactroban Ointment (For Decolonization) -) 1 applic NS BID [facility] Stop: 11/06/17 21:59 Last Admin: 11/02/17 21:50 Dose: 1 applic Potassium Chloride (K-Dur -) 10 meq PO ONCE ONE Stop: 11/03/17 08:49 a/p legionella pneumonia acute renal failure-receiving HD rhabdomyolysis toxic-metabolic encephalopathy continue levaquin 500 q48h try to send sputum for legionella repeat blood cultures for fever d/w ICU resident Problem List - Problems (1) Pneumonia Code(s): J18.9 - PNEUMONIA, UNSPECIFIED ORGANISM (2) Acute kidney failure Code(s): N17.9 - ACUTE KIDNEY FAILURE, UNSPECIFIED Qualifiers: Acute renal failure type: unspecified Qualified Code(s): N17.9 - Acute kidney failure, unspecified (3) Altered mental status Code(s): R41.82 - ALTERED MENTAL STATUS, UNSPECIFIED Qualifiers: Altered mental status type: disorientation Qualified Code(s): R41.0 - Disorientation, unspecified (4) Elevated LFTs Code(s): R94.5 - ABNORMAL RESULTS OF LIVER FUNCTION STUDIES
[2017-11-03] MEDS ORDERED: POTASSIUM CHLORIDE TABS 10 MEQ TABLET.ER (FP) PO ONE (09:30)
[2017-11-03] MEDS: MUPIROCIN 2% TOPICAL OINTMENT FOR DECOLONIZATION NS SCH (10:06)
--- NOTE | 2017-11-03 10:51 | PN ---
Progress Note, Physician History of Present Illness: Events noted Seen in the MICU Still lethargic Difficult to arouse Follow one step commands No seizure S/p Dialysis - Current Medication List Current Medications: Active Medications Chlorhexidine Gluconate (Hibiclens For Decolonization -) 1 applic TP HS [facility] Last Admin: 11/02/17 21:50 Dose: 1 applic Heparin Sodium (Porcine) (Heparin -) 5,000 unit SQ TID [facility] Last Admin: 11/03/17 07:00 Dose: 5,000 unit Sodium Chloride (Normal Saline -) 250 mls @ 3,000 mls/hr IV PRN PRN PRN Reason: Hypotension during Dialysis Stop: 11/03/17 19:13 Sodium Bicarbonate 150 meq/ (Dextrose) 1,150 mls @ 150 mls/hr IV ASDIR [facility] Last Admin: 11/03/17 03:14 Dose: 150 mls/hr Levofloxacin (Levaquin 500 Mg Premixed Ivpb -) 500 mg in 100 mls @ 100 mls/hr IVPB Q48H [facility]; Protocol Last Admin: 11/03/17 10:06 Dose: 100 mls/hr Mupirocin (Bactroban Ointment (For Decolonization) -) 1 applic NS BID [facility] Stop: 11/06/17 21:59 Last Admin: 11/03/17 10:06 Dose: 1 applic - Objective Vital Signs: Vital Signs Temperature 101.4 F H 11/03/17 09:40 Pulse Rate 115 H 11/03/17 09:40 Respiratory Rate 30 H 11/03/17 09:40 Blood Pressure 174/86 11/03/17 09:40 O2 Sat by Pulse Oximetry (%) 100 11/02/17 20:32 Constitutional: Yes: Well Nourished Eyes: Yes: WNL Neurological: Yes: Alert, Oriented, Babinski negative ...Motor Strength: WNL Labs: CBC, BMP 11/03/17 05:30 11/03/17 05:30 INR, PTT INR 1.36 (0.83-1.09) H 11/02/17 05:30 Problem List - Problems (1) Altered mental status Assessment/Plan: Encephalopathy ?? Legionella vs ARF 1. Neuro checks 2. Might proceed with Lp 3. Hold off MRI 4. Follow up with ID and Renal services Code(s): R41.82 - ALTERED MENTAL STATUS, UNSPECIFIED Qualifiers: Altered mental status type: disorientation Qualified Code(s): R41.0 - Disorientation, unspecified
--- NOTE | 2017-11-03 11:20 | PN ---
Progress Note, CLAIMS ADJUSTER - Note Progress Note: Selected Entries 11/01/17 11/01/17 11/01/17 01:10 03:30 06:14 Temperature 100.9 F H 99 F 99 F 11/01/17 11/01/17 11/01/17 07:41 10:06 11:55 Temperature 98.9 F 98.1 F 98.6 F 11/01/17 11/02/17 11/02/17 16:00 02:00 04:00 Temperature 98.8 F 98.6 F 97.6 F 11/02/17 11/02/17 11/02/17 12:00 13:15 16:00 Temperature 99 F 101.4 F H 101.9 F H 11/02/17 11/02/17 11/03/17 18:00 22:00 02:00 Temperature 99 F 100.1 F H 103.1 F H 11/03/17 11/03/17 06:00 09:40 Temperature 98.6 F 101.4 F H Laboratory Tests 11/03/17 05:30 WBC 6.3 Pt quite Apraxic, significant delay in motor initiation. eg turn your head " Wait a minute" took 2 + minutes to initiate head movement. HR up to 120 while trying to turn head. Errors in counting to 10. Thinks he is in his old home but o x Oct, 2017, 32 yo. Flat affect. Trial of nectar thick with delayed but brisk swallow but responsive cough. Aspiration? Counseled pt's girlfriend on cognitive/language stimulation. Will likely need acute rehabilitation/ LTAC?. MBS if medically stable to go to xray.
--- NOTE | 2017-11-03 11:31 | PN ---
Teaching Attending Note Name of Resident: Doug Gil ATTENDING PHYSICIAN STATEMENT I saw and evaluated the patient. I reviewed the resident's note and discussed the case with the resident. I agree with the resident's findings and plan as documented. SUBJECTIVE: Pt seen and examined in the ICU. Slightly more alert today. Tolerated HD yesterday and this AM. Persistent intermittent fevers. Remains oliguric. OBJECTIVE: Vital Signs Period Temp Pulse Resp BP Sys/Dangelo Pulse Ox Last 24 Hr 98.6 F-103.1 F 65-122 17-40 118-185/66-103 100 Intake & Output 10/31/17 11/01/17 11/02/17 11/03/17 23:59 23:59 23:59 23:59 Intake Total 1625 2750 1750 Output Total 200 340 260 Balance 1425 2410 1490 Weight 86.183 kg 104.462 kg 103.589 kg Gen: lethargic but easily arousable Heart: tachycardic, regular Lung: decreased breath sounds at the bases Abd: soft, nontender Ext: no edema CBC, BMP 11/03/17 05:30 11/03/17 05:30 Active Medications Chlorhexidine Gluconate (Hibiclens For Decolonization -) 1 applic TP HS [facility] Last Admin: 11/02/17 21:50 Dose: 1 applic Heparin Sodium (Porcine) (Heparin -) 5,000 unit SQ TID [facility] Last Admin: 11/03/17 07:00 Dose: 5,000 unit Sodium Chloride (Normal Saline -) 250 mls @ 3,000 mls/hr IV PRN PRN PRN Reason: Hypotension during Dialysis Stop: 11/03/17 19:13 Sodium Bicarbonate 150 meq/ (Dextrose) 1,150 mls @ 150 mls/hr IV ASDIR [facility] Last Admin: 11/03/17 03:14 Dose: 150 mls/hr Levofloxacin (Levaquin 500 Mg Premixed Ivpb -) 500 mg in 100 mls @ 100 mls/hr IVPB Q48H [facility]; Protocol Last Admin: 11/03/17 10:06 Dose: 100 mls/hr Mupirocin (Bactroban Ointment (For Decolonization) -) 1 applic NS BID [facility] Stop: 11/06/17 21:59 Last Admin: 11/03/17 10:06 Dose: 1 applic ASSESSMENT AND PLAN: Legionella Pneumonia Severe Sepsis Acute Kidney Injury Metabolic Acidosis Altered Mental Status Thrombocytopenia Hyponatremia Elevated LFTs +Troponins likely Demand Ischemia Rhabdomyolysis - antibiotics per ID - HD, lasix per renal - monitor urine output, creatinine - continue bicarb gtt - monitor CPK, CBC - trend LFTs - continue ICU monitoring critical care time spent in reviewing chart, evaluating patient and formulating plan 35 min
--- NOTE | 2017-11-03 16:04 | PN ---
Teaching Attending Note Name of Resident: Nicci Gordon ATTENDING PHYSICIAN STATEMENT I saw and evaluated the patient. I reviewed the resident's note and discussed the case with the resident. I agree with the resident's findings and plan as documented. SUBJECTIVE: Patient opens eyes when called. He is lethargic and not answering questions. OBJECTIVE: Vital Signs Period Temp Pulse Resp BP Sys/Dangelo Pulse Ox Last 24 Hr 98.6 F-103.1 F 65-122 17-40 118-174/66-103 100 HEART: S1S2, tachycardic LUNGS: Clear ABDOMEN: Soft, non-distended, normal BS EXTREMITIES: No edema Laboratory Results - last 24 hr 11/01/17 11/02/17 11/02/17 07:50 20:00 21:45 WBC RBC Hgb Hct MCV MCH MCHC RDW Plt Count MPV ESR Puncture Site Left radial ABG pH 7.49 H ABG pCO2 at Pt Temp 24.8 L D ABG pO2 at Pt Temp 64.4 L D ABG HCO3 18.5 L ABG O2 Sat (Measured) 94.3 ABG O2 Content 14.3 L ABG Base Excess -3.3 L Julio Cesar Test Positive O2 Delivery Device Room air Oxygen Flow Rate No PEEP 0.0 Sodium 141 Potassium 3.3 L Chloride 102 Carbon Dioxide 20 L D Anion Gap 19 H BUN 65 H Creatinine 8.5 H* Creat Clearance w eGFR 7.38 Random Glucose 86 Calcium 7.2 L Phosphorus Magnesium Total Bilirubin 1.4 H AST 335 H ALT 188 H Alkaline Phosphatase 64 Total Protein 5.0 L Albumin 1.8 L AJ Screen Negative 11/03/17 11/03/17 11/03/17 05:30 05:30 05:30 WBC 6.3 RBC 3.19 L Hgb 9.9 L Hct 27.9 L D MCV 87.4 MCH 30.9 MCHC 35.3 RDW 13.4 Plt Count 124 L MPV 8.0 ESR 72 H Puncture Site ABG pH ABG pCO2 at Pt Temp ABG pO2 at Pt Temp ABG HCO3 ABG O2 Sat (Measured) ABG O2 Content ABG Base Excess Julio Cesar Test O2 Delivery Device Oxygen Flow Rate PEEP Sodium 136 Potassium 3.3 L Chloride 100 Carbon Dioxide 22 Anion Gap 14 BUN 75 H Creatinine 9.7 H* Creat Clearance w eGFR 6.33 Random Glucose 117 H D Calcium 7.2 L Phosphorus 5.1 H Magnesium 2.3 Total Bilirubin 1.2 H AST 357 H ALT 206 H Alkaline Phosphatase 65 Total Protein 4.8 L Albumin 1.7 L AJ Screen Current Medications Generic Name Dose Route Start Last Admin Trade Name Freq PRN Reason Stop Dose Admin Chlorhexidine Gluconate 1 applic 11/01/17 22:00 11/02/17 21:50 Hibiclens For Decolonization - TP 1 applic HS [facility] Administration Heparin Sodium (Porcine) 5,000 unit 11/01/17 06:00 11/03/17 15:00 Heparin - SQ 5,000 unit TID [facility] Administration Sodium Chloride 250 mls @ 3,000 mls/hr 11/02/17 19:13 Normal Saline - IV 11/03/17 19:13 PRN PRN Hypotension during Dialysis Levofloxacin 500 mg in 100 mls @ 100 mls/hr 11/03/17 10:00 11/03/17 10:06 Levaquin 500 Mg Premixed Ivpb - IVPB 100 mls/hr Q48H [facility] Administration Protocol Sodium Bicarbonate 150 meq/ 1,150 mls @ 150 mls/hr 11/03/17 13:16 Dextrose IV Q7H [facility] Mupirocin 1 applic 11/01/17 22:00 11/03/17 10:06 Bactroban Ointment (For Decolonization) - NS 11/06/17 21:59 1 applic BID [facility] Administration ASSESSMENT AND PLAN: This is a 32 year old man with no significant history who presented to the ED with change of mental status. 1. Severe sepsis secondary to Legionella pneumonia - Continue Levaquin 2. Acute metabolic encephalopathy secondary to severe sepsis 3. Acute kidney injury - Continue HD as per nephrology - Continue bicarb drip 4. Rhabdomyolysis - Improving 5. Hepatic transaminitis secondary to sepsis 6. Hyponatremia - Improved 7. Hypokalemia - Replete potassium 8. Demand ischemia secondary to sepsis 9. Anemia - Likely secondary to sepsis and IV fluid The care of this patient involved high complexity decision making to prevent further life threatening deterioration of the patient's condition and/or to evaluate & treat vital organ system(s) failure or risk of failure.
[2017-11-03 16:27] LABS: ALBUMIN 1.8 g/dl (3.4-5.0); ANION GAP 13 (8-16); BLOOD UREA NITROGEN 51 mg/dL (7-18); CALCIUM 7.8 mg/dL (8.5-10.1); CHLORIDE 100 mmol/L (98-107); CO2 27 mmol/L (21-32); GLUCOSE,RANDOM 106 mg/dL (74-106); POTASSIUM 3.2 mmol/L (3.5-5.1); SGOT/AST 367 U/L (15-37); SGPT/ALT 210 U/L (12-78); SODIUM 140 mmol/L (136-145)
[2017-11-03 16:29] LABS: ALK PHOS 80 U/L (45-117); BILIRUBIN,TOTAL 1.4 mg/dL (0.2-1.0); TOT PROT 5.3 g/dl (6.4-8.2)
[2017-11-03 16:37] LABS: CREATININE 7.8 mg/dL (0.7-1.3)
[2017-11-03] MEDS ORDERED: FUROSEMIDE 40 MG/4 ML INJECTABLE VIAL IVPB ONE (17:18)
[2017-11-03] MEDS ORDERED: FUROSEMIDE 100 MG/10 ML INJECTABLE VIAL IVPB ONE (17:30)
--- NOTE | 2017-11-03 17:54 | PN ---
Physical Exam: SUBJECTIVE: Patient seen and examined. Pt was getting dialysis. Upon exam later in the AM, pt was fatigued and not willing to answer questions. Seen resting comfortably in bed. Per nurse, pt was febrile overnight at 103.1 and was given IV Tylenol. OBJECTIVE: Vital Signs Period Temp Pulse Resp BP Sys/Dangelo Pulse Ox Last 24 Hr 98.6 F-103.1 F 65-122 17-40 118-174/66-103 100 GENERAL: No acute distress. AAOx1. Slurred speech. Arousable with physical stimuli. HEENT: AT/NC. Moist mucus membrane. No facial droop noted. B/l pupil sluggishly reactive to light. No erythema noted in oropharynx. Tracks with eyes but is very sluggish. NECK: supple without lymphadenopathy, minimal JVD noted LUNGS: Some mild wheezing, no crackles noted. HEART: Regular, rate, and rhythm, no murmurs noted. ABDOMEN: Soft, obese, no masses or organomegaly noted. +lower abdominal tenderness. UPPER EXTREMITIES: 2+ pulses, well-perfused. No cyanosis. No clubbing. No peripheral edema. Cool b/l extremities. 4/5 muscle strength b/l extremities. LOWER EXTREMITIES: 2+ pulses, well-perfused. No calf tenderness. No peripheral edema. Cool b/l extremities. 2/5 muscle strength b/l extremities. NEUROLOGICAL: Responds to commands. SKIN: Warm, dry, normal turgor, no rashes or lesions noted, normal capillary refill. Laboratory Results - last 24 hr 11/01/17 11/02/17 11/02/17 07:50 20:00 21:45 WBC RBC Hgb Hct MCV MCH MCHC RDW Plt Count MPV ESR Puncture Site Left radial ABG pH 7.49 H ABG pCO2 at Pt Temp 24.8 L D ABG pO2 at Pt Temp 64.4 L D ABG HCO3 18.5 L ABG O2 Sat (Measured) 94.3 ABG O2 Content 14.3 L ABG Base Excess -3.3 L Julio Cesar Test Positive O2 Delivery Device Room air Oxygen Flow Rate No PEEP 0.0 Sodium 141 Potassium 3.3 L Chloride 102 Carbon Dioxide 20 L D Anion Gap 19 H BUN 65 H Creatinine 8.5 H* Creat Clearance w eGFR 7.38 Random Glucose 86 Calcium 7.2 L Phosphorus Magnesium Total Bilirubin 1.4 H AST 335 H ALT 188 H Alkaline Phosphatase 64 Total Protein 5.0 L Albumin 1.8 L AJ Screen Negative 11/03/17 11/03/17 11/03/17 05:30 05:30 05:30 WBC 6.3 RBC 3.19 L Hgb 9.9 L Hct 27.9 L D MCV 87.4 MCH 30.9 MCHC 35.3 RDW 13.4 Plt Count 124 L MPV 8.0 ESR 72 H Puncture Site ABG pH ABG pCO2 at Pt Temp ABG pO2 at Pt Temp ABG HCO3 ABG O2 Sat (Measured) ABG O2 Content ABG Base Excess Julio Cesar Test O2 Delivery Device Oxygen Flow Rate PEEP Sodium 136 Potassium 3.3 L Chloride 100 Carbon Dioxide 22 Anion Gap 14 BUN 75 H Creatinine 9.7 H* Creat Clearance w eGFR 6.33 Random Glucose 117 H D Calcium 7.2 L Phosphorus 5.1 H Magnesium 2.3 Total Bilirubin 1.2 H AST 357 H ALT 206 H Alkaline Phosphatase 65 Total Protein 4.8 L Albumin 1.7 L AJ Screen 11/03/17 15:20 WBC RBC Hgb Hct MCV MCH MCHC RDW Plt Count MPV ESR Puncture Site ABG pH ABG pCO2 at Pt Temp ABG pO2 at Pt Temp ABG HCO3 ABG O2 Sat (Measured) ABG O2 Content ABG Base Excess Julio Cesar Test O2 Delivery Device Oxygen Flow Rate PEEP Sodium 140 Potassium 3.2 L Chloride 100 Carbon Dioxide 27 D Anion Gap 13 BUN 51 H Creatinine 7.8 H* Creat Clearance w eGFR 8.14 Random Glucose 106 Calcium 7.8 L Phosphorus Magnesium Total Bilirubin 1.4 H AST 367 H ALT 210 H Alkaline Phosphatase 80 D Total Protein 5.3 L Albumin 1.8 L AJ Screen Active Medications Generic Name Dose Route Start Last Admin Trade Name Freq PRN Reason Stop Dose Admin Chlorhexidine Gluconate 1 applic 11/01/17 22:00 11/02/17 21:50 Hibiclens For Decolonization - TP 1 applic HS [facility] Administration Heparin Sodium (Porcine) 5,000 unit 11/01/17 06:00 11/03/17 15:00 Heparin - SQ 5,000 unit TID [facility] Administration Sodium Chloride 250 mls @ 3,000 mls/hr 11/02/17 19:13 Normal Saline - IV 11/03/17 19:13 PRN PRN Hypotension during Dialysis Levofloxacin 500 mg in 100 mls @ 100 mls/hr 11/03/17 10:00 11/03/17 10:06 Levaquin 500 Mg Premixed Ivpb - IVPB 100 mls/hr Q48H [facility] Administration Protocol Sodium Bicarbonate 150 meq/ 1,150 mls @ 150 mls/hr 11/03/17 13:16 Dextrose IV Q7H [facility] Mupirocin 1 applic 11/01/17 22:00 11/03/17 10:06 Bactroban Ointment (For Decolonization) - NS 11/06/17 21:59 1 applic BID [facility] Administration UA: 2+ protein, 3+ blood with minimal RBC's, 4 WBC's Tox screen: +Marijuana, <4.0 Salicylates IMAGING: Head CT: No evidence of acute intracranial hemmorhage, edema, midline shift, mass effect, or skull fx. No CT evidence of acute territorial infarction. Abd U/S: Borderline hepatosplenomegaly w/ no evidence of acute pathology within the abdomen. Liver is borderline enlarged measuring 17.6 cm in craniocaudad dimension. It is homogenous in teexture. There is an echogenic mass within the L lobe measuring 2.cm. This is consistent w/ a hemangioma. No additional intrahepatic masses are identified. The portal flow is documented within the main portal vein. CT Abd/Pel w/o contrast: 1. Extensive L lower lobe consolidation suspicious for acute pna. There is a lesser degree of consolidation/atelectasis within the R lung base. 2. Limited study w/ no gross evidence of acute pathology within the abdomen or pelvis. EMG: pending report ASSESSMENT/PLAN: 32M w/ no significant pmhx presented to the hospital with AMS per family, persistent diarrhea, as well as bowel incontinence since admitted for Legionella pneumonia. #Pneumonia 2/2 to likely Legionella; Presumptive +Legionella Ag. -Per ID: cont Levofloxacin 500 mg Q48H -f/u Legionella serology -f/u blood cx from [facility] and peripheral venous #Toxic Metabolic Encephalopathy -Per Neuro: Neuro check Q1H. Aspiration precautions. Nerve conduction testing electromyography of the lower extremities showed mild neuropathy which is not very helpful. -CSF rechecked, no proteins present, clear CSF -blood cx (-)x24h; urine cx no growth obtained -CSF gram stain: No organisms seen. No polymorphonuclear WBC observed. #Acute Renal Failure likely 2/2 Legionella infection & Rhabdo; Pt dialyzed today. Cr improved, now 7.8. -Per nephro, pt will need monitor serum ABG to ensure pH is not > 7.5 and corrected Ca remains > 7. Lasix 120mg IVPB to force diuresis. Goal urine pH goal > 6.5, d/c IVF to bicarb gtt. will plan for additional dialysis Wednesday. -F/u ADAMTS-13, C-anca, P-anca, immunology panel pending #[place]ute [place]; [place] [address] -cont Bicarb GTT -urine myoglobin -f/u repeat cpk #Transaminitis; AST 367, ALT 210. AlkP 80. likely 2/2 Legionella infection. -Hepatitis panel negative; HIV 1&2, HIV p24 negative -In the ED, Lactulose and Rifaximin were given due to possible hepatic encephalopathy. -f/u CMP #Mild thrombocytopenia -recheck CBC in AM. -Per Heme: HUS was considered as patient was febrile, had AMS, renal failure, and mild thrombocytopenia. No schistocytes were seen on peripheral smear. Mild thrombocytopenia noted may be secondary to sepsis, liver disease, hypersplenism. -F/u D Bili, haptoglobin, fibrinogen, and LDH. #Mild troponinemia -Possibly due to demand ischemia with sepsis -ECG noted: sinus rhythm, no acute ST elevations or depressions #DVT Prophylaxis -Heparin 5000 units SQ TID #FEN -Sodium Bicarb 150 mg @ 150cc/hr -serial CMP Q6H, possible HD in AM -dysphagia puree diet, nectar thick liquid per SS eval Disposition -cont to monitor in ICU Visit type - Emergency Visit Emergency Visit: Yes ED Registration Date: 11/01/17 Care time: The patient presented to the Emergency Department on the above date and was hospitalized for further evaluation of their emergent condition. - New Patient This patient is new to me today: No - Critical Care Critical Care patient: Yes Total Critical Care Time (in minutes): 35 Critical Care Statement: The care of this patient involved high complexity decision making to prevent further life threatening deterioration of the patient 's condition and/or to evaluate & treat vital organ system(s) failure or risk of failure.
--- NOTE | 2017-11-03 18:27 | CON.GI ---
Consult Consult Specialty:: GI - History of Present Illness Chief Complaint: elevated liver enzymes History of Present Illness: 52 y/o male was doing well until 3 days ago when he developed change in mental status, diarrhea,fever . He came [place] aday ago. In the ER , he was noted to have lower lobe pneumonia, acuter renal failure, moderate hepatocellular injury, mild hepatosplenomegaly by abdominal ultrasound. He tested positive for legionella urine antigen. He continued to have altered mental status. He has received iv hydration for acute rhabdomyolysis. His liver enzymes seem to have trended lower but continue to have moderate hepatocellular injury. He is presently on dialysis and his giet advanced, Patient was evaluated by speech pathologist. - Alcohol/Substance Use Hx Alcohol Use: Yes (SOCIAL) - Smoking History Smoking history: Current every day smoker Have you smoked in the past 12 months: Yes Aproximately how many cigarettes per day: 5 Home Medications - Allergies Allergies/Adverse Reactions: Allergies Allergy/AdvReac Type Severity Reaction Status Date / Time lactose Allergy Verified 11/03/17 11:51 - Home Medications Home Medications: Ambulatory Orders NK [No Known Home Medication] 10/31/17 Physical Exam-GI Vital Signs: Vital Signs Temperature 101.4 F H 11/03/17 09:40 Pulse Rate 103 H 11/03/17 16:00 Respiratory Rate 20 11/03/17 16:00 Blood Pressure 145/66 11/03/17 16:00 O2 Sat by Pulse Oximetry (%) 100 11/02/17 20:32 Constitutional: Yes: Well Nourished Eyes: Yes: Conjunctiva Clear HENT: Yes: Atraumatic Neck: Yes: Supple Cardiovascular: Yes: Regular Rate and Rhythm Respiratory: Yes: CTA Bilaterally ...Palpate: Yes: Soft. No: Firm/Rigid, Guarding, Hepatomegaly, Mass, Pulsatile Mass, Splenomegaly, Tenderness Labs: CBC, BMP 11/03/17 05:30 11/03/17 15:20 INR, PTT INR 1.36 (0.83-1.09) H 11/02/17 05:30 Problem List - Problems (1) Hepatocellular injury Assessment/Plan: secondary to sepsis R> would expect to have liver enzymes to trend lower as the sepsis and acute event resolves. It is unlikely that the change in mental status is secondary to Hepatic failure and most likely secondary to metabolic encephalopathy. The aciute liver injury is secondary to sepsis and dehydration in his initial presentation. will need to continue to trend liver enzymes and recall as necessary Code(s): K76.9 - LIVER DISEASE, UNSPECIFIED
--- NOTE | 2017-11-03 19:12 | PN ---
Progress Note (short form) - Note Progress Note: Renal Follow up for [place] Pt seen and examined at the bedside awake, remains groggy remains oliguric s/p dialysis this am on bicarb gtt Vital Signs Temperature 101.4 F H 11/03/17 09:40 Pulse Rate 87 11/03/17 18:00 Respiratory Rate 20 11/03/17 18:00 Blood Pressure 137/87 11/03/17 18:00 O2 Sat by Pulse Oximetry (%) 100 11/02/17 20:32 NAD, groggy RRR, No M/R Dec BS at lung bases soft NT/ND Trace LE edema CBC, BMP 11/03/17 05:30 11/03/17 15:20 Current Medications Chlorhexidine Gluconate (Hibiclens For Decolonization -) 1 applic TP HS [facility] Last Admin: 11/02/17 21:50 Dose: 1 applic Heparin Sodium (Porcine) (Heparin -) 5,000 unit SQ TID [facility] Last Admin: 11/03/17 15:00 Dose: 5,000 unit Sodium Chloride (Normal Saline -) 250 mls @ 3,000 mls/hr IV PRN PRN PRN Reason: Hypotension during Dialysis Stop: 11/03/17 19:13 Levofloxacin (Levaquin 500 Mg Premixed Ivpb -) 500 mg in 100 mls @ 100 mls/hr IVPB Q48H [facility]; Protocol Last Admin: 11/03/17 10:06 Dose: 100 mls/hr Sodium Bicarbonate 150 meq/ (Dextrose) 1,150 mls @ 150 mls/hr IV Q7H [facility] Mupirocin (Bactroban Ointment (For Decolonization) -) 1 applic NS BID [facility] Stop: 11/06/17 21:59 Last Admin: 11/03/17 10:06 Dose: 1 applic #Acute Renal Injury secondary to legionella infection + Pigment injury from Rhabdo #AMS #Fever #Metabolic acidosis #Elevated LDH/Hemolysis/Thrombocytopenia s/p 2nd [employer] today, tolerated it well still remains oliguric, will attempt Lasix diuresis again today continue bicarb gtt for now, discontinue if pH > 7.5 or if corrected Ca < 7 Trend renal function and electrolytes Continue Abx as per ID ICU monitoring supportive care Rojas Edmondson DO
[2017-11-03] MEDS ORDERED: POTASSIUM CHLORIDE TABS 20 MEQ TABLET.ER (FP) PO ONE (19:32)
--- NOTE | 2017-11-03 20:54 | PN ---
Physical Exam: SUBJECTIVE: Patient seen and examined this am and evening in icu. Pt obtunded, resting in bed, difficult to elicit responses to questions. Girlfriend at bedside. OBJECTIVE: Vital Signs Period Temp Pulse Resp BP Sys/Dangelo Pulse Ox Last 24 Hr 98.2 F-103.1 F 65-122 17-40 118-174/66-103 100 GENERAL: Lethargic HEAD: NC/AT EYES: EOMI ENT: MMM NECK: No JVD LUNGS: Dec BS at Bases, rhonchi b/l HEART: RRR, no MRG ABDOMEN: NT, ND, No HSM. EXTREMITIES: Warm. NEUROLOGICAL: Obtunded SKIN: No rashes or gross abnormalities. Laboratory Results - last 24 hr 11/01/17 11/02/17 11/02/17 07:50 20:00 21:45 WBC RBC Hgb Hct MCV MCH MCHC RDW Plt Count MPV ESR Puncture Site Left radial ABG pH 7.49 H ABG pCO2 at Pt Temp 24.8 L D ABG pO2 at Pt Temp 64.4 L D ABG HCO3 18.5 L ABG O2 Sat (Measured) 94.3 ABG O2 Content 14.3 L ABG Base Excess -3.3 L Julio Cesar Test Positive O2 Delivery Device Room air Oxygen Flow Rate No PEEP 0.0 Sodium 141 Potassium 3.3 L Chloride 102 Carbon Dioxide 20 L D Anion Gap 19 H BUN 65 H Creatinine 8.5 H* Creat Clearance w eGFR 7.38 Random Glucose 86 Calcium 7.2 L Phosphorus Magnesium Total Bilirubin 1.4 H AST 335 H ALT 188 H Alkaline Phosphatase 64 Creatine Kinase Creatine Kinase Index CK-MB (CK-2) Total Protein 5.0 L Albumin 1.8 L AJ Screen Negative 11/03/17 11/03/17 11/03/17 05:30 05:30 05:30 WBC 6.3 RBC 3.19 L Hgb 9.9 L Hct 27.9 L D MCV 87.4 MCH 30.9 MCHC 35.3 RDW 13.4 Plt Count 124 L MPV 8.0 ESR 72 H Puncture Site ABG pH ABG pCO2 at Pt Temp ABG pO2 at Pt Temp ABG HCO3 ABG O2 Sat (Measured) ABG O2 Content ABG Base Excess Julio Cesar Test O2 Delivery Device Oxygen Flow Rate PEEP Sodium 136 Potassium 3.3 L Chloride 100 Carbon Dioxide 22 Anion Gap 14 BUN 75 H Creatinine 9.7 H* Creat Clearance w eGFR 6.33 Random Glucose 117 H D Calcium 7.2 L Phosphorus 5.1 H Magnesium 2.3 Total Bilirubin 1.2 H AST 357 H ALT 206 H Alkaline Phosphatase 65 Creatine Kinase Creatine Kinase Index CK-MB (CK-2) Total Protein 4.8 L Albumin 1.7 L AJ Screen 11/03/17 11/03/17 15:00 15:20 WBC RBC Hgb Hct MCV MCH MCHC RDW Plt Count MPV ESR Puncture Site ABG pH ABG pCO2 at Pt Temp ABG pO2 at Pt Temp ABG HCO3 ABG O2 Sat (Measured) ABG O2 Content ABG Base Excess Julio Cesar Test O2 Delivery Device Oxygen Flow Rate PEEP Sodium 140 Potassium 3.2 L Chloride 100 Carbon Dioxide 27 D Anion Gap 13 BUN 51 H Creatinine 7.8 H* Creat Clearance w eGFR 8.14 Random Glucose 106 Calcium 7.8 L Phosphorus Magnesium Total Bilirubin 1.4 H AST 367 H ALT 210 H Alkaline Phosphatase 80 D Creatine Kinase 00476 H Creatine Kinase Index 0.0 CK-MB (CK-2) 1.79 Total Protein 5.3 L Albumin 1.8 L AJ Screen Active Medications Generic Name Dose Route Start Last Admin Trade Name Freq PRN Reason Stop Dose Admin Chlorhexidine Gluconate 1 applic 11/01/17 22:00 11/02/17 21:50 Hibiclens For Decolonization - TP 1 applic HS [facility] Administration Heparin Sodium (Porcine) 5,000 unit 11/01/17 06:00 11/03/17 15:00 Heparin - SQ 5,000 unit TID [facility] Administration Sodium Chloride 250 mls @ 3,000 mls/hr 11/02/17 19:13 Normal Saline - IV 11/03/17 19:13 PRN PRN Hypotension during Dialysis Levofloxacin 500 mg in 100 mls @ 100 mls/hr 11/03/17 10:00 11/03/17 10:06 Levaquin 500 Mg Premixed Ivpb - IVPB 100 mls/hr Q48H [facility] Administration Protocol Sodium Bicarbonate 150 meq/ 1,150 mls @ 150 mls/hr 11/03/17 13:16 Dextrose IV Q7H [facility] Potassium Chloride 10 meq in 100 mls @ 50 mls/hr 11/03/17 20:00 Potassium Chloride 10 Meq Premix Ivpb - IVPB 11/03/17 21:59 Q60M [facility] Mupirocin 1 applic 11/01/17 22:00 11/03/17 10:06 Bactroban Ointment (For Decolonization) - NS 11/06/17 21:59 1 applic BID [facility] Administration ASSESSMENT/PLAN: Pt is a 32 y/o M with no significant pmh who was at a barbeque a few days ago, developed dark, watery diarrhea and fevers. Pt observed his urine to be darker than usual and was urinating less frequently. BIBA to [facility] c/o generalized weakness and AMS per family. No recent travel or sick contacts. No skin rashes. Neuro- AMS Head CT--> No Intracranial hemmorhage, midline shift, or edema. Pulm-Legionella Pneumonia -Legionella Urine Antigen + - Received vancomycin, zosyn, ceftriaxone and flagyl in ED ID on Board-continue levaquin 500 q48h, repeat blood cultures for fever Chest XRAY today 11/03--> Increasing left opacity left base- may be fluid or infiltrate or both. Renal: SALBADOR 2/2 Hypoperfusion BUN/CR--> Creatinine 7.8 today post [employer]. Continue to trend Nephrology Dr Edmondson on board Per Nephro: Continue aggressive IVF hydration with NS, Lasix as needed Abd/Pelvis CT--> Extensive left lower lobe consolidation suspcious for acute pneumonia. Atelectasis/consolidation right lung base. Abdomen Ultrasound--> Hepatosplenomegaly. Per Dr Edmondson--> bicarb gtt with goal of alkalizing urine to ph > 6.5 Lasix 100mg IVPB to force diuresis Monitor serum ABG to ensure ph does not exceed 7.5 and corrected CA remains > 7 Heme: Thrombocytopenia --> 124. May be due to sepsis, liver disease or hypersplenism. Peripheral smear reviewed - NO schistocytes. Dr Lynne Following\ G.I GI on board Transaminitis secondary to sepsis continue to trend liver enzymes and recall as necessary FEN NS prn if hypotension during dialysis Monitor Electrolytes Dysphagia Puree DVT ppx: Heparin 5,000 U SQ BID Dispo: Continue to monitor in icu. Visit type - Emergency Visit Emergency Visit: Yes ED Registration Date: 11/01/17 Care time: The patient presented to the Emergency Department on the above date and was hospitalized for further evaluation of their emergent condition. - New Patient This patient is new to me today: No - Critical Care Critical Care patient: Yes Total Critical Care Time (in minutes): 35 Critical Care Statement: The care of this patient involved high complexity decision making to prevent further life threatening deterioration of the patient 's condition and/or to evaluate & treat vital organ system(s) failure or risk of failure.
[2017-11-03] MEDS: KCL 10 MEQ IVPB 10 MEQ/100 ML INFUS.BAG IVPB SCH ×2 (21:03→22:10)
[2017-11-03] MEDS: CHLORHEXIDINE GLUCONATE 4% CLEANSER FOR DECOLONIZATION TP SCH (21:10)
[2017-11-03 21:18] LABS: URINE APPEARANCE CLOUDY; URINE BILIRUBIN NEGATIVE (<2.0 mg/dL); URINE COLOR AMBER; URINE GLUCOSE (UA) NEGATIVE (NEGATIVE); URINE KETONE NEGATIVE (NEGATIVE); URINE LEUK ESTERASE NEGATIVE (NEGATIVE); URINE NITRITE NEGATIVE (NEGATIVE)
[2017-11-03 21:23] LABS: URINE PROTEIN 2+ (NEGATIVE)
[2017-11-03 21:26] LABS: EPI CELLS RARE /HPF (FEW)
[2017-11-04 00:07] LABS: ADAMTS13 ACTIVITY 31.7 % (>66.8)
[2017-11-04 00:58] LABS: ALBUMIN 1.7 g/dl (3.4-5.0); ALK PHOS 82 U/L (45-117); ANION GAP 10 (8-16); BILIRUBIN,TOTAL 1.2 mg/dL (0.2-1.0); BLOOD UREA NITROGEN 59 mg/dL (7-18); CALCIUM 7.6 mg/dL (8.5-10.1); CHLORIDE 100 mmol/L (98-107); CO2 31 mmol/L (21-32); GLUCOSE,RANDOM 117 mg/dL (74-106); POTASSIUM 3.2 mmol/L (3.5-5.1); SGPT/ALT 220 U/L (12-78); SODIUM 141 mmol/L (136-145)
[2017-11-04 01:06] LABS: SGOT/AST 411 U/L (15-37)
[2017-11-04 01:07] LABS: CREATININE 8.6 mg/dL (0.7-1.3)
[2017-11-04] MEDS ORDERED: ACETAMINOPHEN 325 MG TABLET (FP) PO ONE (02:02)
[2017-11-04] MEDS ORDERED: ACETAMINOPHEN 1000 MG/100 ML VIAL (NON FORMULARY) IVPB ONE ×2 (02:30→22:15)
[2017-11-04] MEDS: MUPIROCIN 2% TOPICAL OINTMENT FOR DECOLONIZATION NS SCH ×3 (02:44→22:05)
[2017-11-04] MEDS: DEXTROSE 5%-WATER - 1,000 ML with SODIUM BICARBONATE 8.4% - 150 MEQ IV SCH ×2 (06:23→11:02)
[2017-11-04] MEDS: HEPARIN NA (PORCINE) 5,000 UNITS/ML 1ML VIAL SQ SCH ×3 (06:24→22:03)
[2017-11-04 06:29] LABS: HEMATOCRIT 28.6 % (35.4-49); HEMOGLOBIN 10.1 GM/dL (11.7-16.9); MCH 30.5 pg (25.7-33.7); MCHC 35.3 g/dl (32.0-35.9); MEAN CELL VOLUME 86.5 fl (80-96); MEAN PLT VOLUME 7.7 fl (7.5-11.1); PLATELET COUNT 164 K/MM3 (134-434); RDW 13.2 % (11.9-15.9); WHITE BLOOD COUNT 6.1 K/mm3 (4.0-10.0)
[2017-11-04 07:19] LABS: CHLORIDE 98 mmol/L (98-107); POTASSIUM 3.2 mmol/L (3.5-5.1); SODIUM 142 mmol/L (136-145)
[2017-11-04 07:24] LABS: ALBUMIN 1.7 g/dl (3.4-5.0); ALK PHOS 85 U/L (45-117); ANION GAP 13 (8-16); BILIRUBIN,TOTAL 1.2 mg/dL (0.2-1.0); BLOOD UREA NITROGEN 61 mg/dL (7-18); CALCIUM 7.4 mg/dL (8.5-10.1); CO2 31 mmol/L (21-32); GLUCOSE,RANDOM 127 mg/dL (74-106); MAGNESIUM 2.2 mg/dL (1.8-2.4); PHOSPHOROUS 3.6 mg/dL (2.5-4.9); SGPT/ALT 235 U/L (12-78); TOT PROT 4.9 g/dl (6.4-8.2)
[2017-11-04 08:26] LABS: SGOT/AST 446 U/L (15-37)
[2017-11-04 08:29] LABS: CREATININE 9.3 mg/dL (0.7-1.3)
[2017-11-04] MEDS: KCL 10 MEQ IVPB 10 MEQ/100 ML INFUS.BAG IVPB SCH ×2 (09:27→11:00)
--- NOTE | 2017-11-04 10:17 | PN ---
Progress Note, [employer] - Note Progress Note: Selected Entries 11/04/17 11/04/17 11/04/17 01:00 05:00 07:57 Temperature 102.3 F H 97.7 F 97.8 F Laboratory Tests 11/02/17 11/04/17 05:30 05:30 WBC 6.1 PT with INR 15.40 H Reviewed pt's cognitive status, Apraxia with difficulty initiating motor activity,swallowing function with staff. Speech imprecise with reduced articulatory excursion secondary to Apraxia. Performance similar to yesterday. Remembered that I had tested his swallowing yesterday. REC: Pt needs to be educated repeatedly regarding his management eg "You cant have thin liquid because it goes in your lungs." "Open mouth wide, use your lips to take the food, now swallow quickly a few times, until your throat is clear." Once educated, pt understands and becomes more cooperative. Please inform him of rationale each time. Pt will need intensive rehabilitation upon d/c- Acute rehab vs LTAC, once stronger and medically stable.
--- NOTE | 2017-11-04 12:00 | PN ---
Teaching Attending Note Name of Resident: Doug Gil ATTENDING PHYSICIAN STATEMENT I saw and evaluated the patient. I reviewed the resident's note and discussed the case with the resident. I agree with the resident's findings and plan as documented. SUBJECTIVE: Pt seen and examined in the ICU. Remains lethargic but arousable. Able to move feet and lift arms. OBJECTIVE: Vital Signs Period Temp Pulse Resp BP Sys/Dangelo Pulse Ox Last 24 Hr 97.7 F-102.3 F 60-109 18-84 132-152/37-87 95-100 Intake & Output 11/01/17 11/02/17 11/03/17 11/04/17 23:59 23:59 23:59 23:59 Intake Total 1625 2750 2600 965 Output Total 200 340 360 10 Balance 1425 2410 2240 955 Weight 104.462 kg 103.419 kg Gen: lethargic but arousable Heart: RRR Lung: decreased breath sounds at the bases Abd: soft, nontender Ext: no edema CBC, BMP 11/04/17 05:30 11/04/17 05:30 Active Medications Chlorhexidine Gluconate (Hibiclens For Decolonization -) 1 applic TP HS [facility] Last Admin: 11/03/17 21:10 Dose: 1 applic Heparin Sodium (Porcine) (Heparin -) 5,000 unit SQ TID [facility] Last Admin: 11/04/17 06:24 Dose: 5,000 unit Sodium Chloride (Normal Saline -) 250 mls @ 3,000 mls/hr IV PRN PRN PRN Reason: Hypotension during Dialysis Stop: 11/03/17 19:13 Levofloxacin (Levaquin 500 Mg Premixed Ivpb -) 500 mg in 100 mls @ 100 mls/hr IVPB Q48H [facility]; Protocol Last Admin: 11/03/17 10:06 Dose: 100 mls/hr Sodium Bicarbonate 150 meq/ (Dextrose) 1,150 mls @ 150 mls/hr IV Q7H [facility] Last Admin: 11/04/17 11:02 Dose: 150 mls/hr Mupirocin (Bactroban Ointment (For Decolonization) -) 1 applic NS BID [facility] Stop: 11/06/17 21:59 Last Admin: 11/04/17 02:44 Dose: 1 applic ASSESSMENT AND PLAN: Legionella Pneumonia Severe Sepsis Acute Kidney Injury requiring HD Metabolic Acidosis Altered Mental Status Thrombocytopenia Hyponatremia Elevated LFTs +Troponins likely Demand Ischemia Rhabdomyolysis - antibiotics per ID - HD, lasix per renal - monitor urine output, creatinine - continue bicarb gtt - monitor CPK, CBC - trend LFTs - continue ICU monitoring critical care time spent in reviewing chart, evaluating patient and formulating plan 35 min
--- NOTE | 2017-11-04 13:32 | PN ---
Progress Note (short form) - Note Progress Note: still with intermittent fevers arousable knows name, birthdate, thinks he is at [facility] sputum legionella culture sent today no diarrhea Vital Signs Period Temp Pulse Resp BP Sys/Dangelo Pulse Ox Last 24 Hr 97.7 F-102.3 F 60-109 18-84 132-155/37-87 95-100 cor-rrr lungs decreased bs at bases abd soft,nt ext no edema right neck shiley no urine output CBC, BMP 11/04/17 05:30 11/04/17 05:30 Microbiology 10/31/17 18:00 Blood - Peripheral Venous Blood Culture - Preliminary NO GROWTH OBTAINED AFTER 96 HOURS, INCUBATION TO CONTINUE FOR 1 DAYS. 10/31/17 18:05 Blood - Peripheral Venous Blood Culture - Preliminary NO GROWTH OBTAINED AFTER 96 HOURS, INCUBATION TO CONTINUE FOR 1 DAYS. 11/03/17 15:20 Blood - Shiley Catheter Blood Culture - Preliminary NO GROWTH OBTAINED AFTER 24 HOURS, INCUBATION TO CONTINUE FOR 4 DAYS. 11/03/17 15:20 Blood - Peripheral Venous Blood Culture - Preliminary NO GROWTH OBTAINED AFTER 24 HOURS, INCUBATION TO CONTINUE FOR 4 DAYS. 11/04/17 10:20 Transtracheal Aspiration Legionella Culture - Preliminary 11/02/17 05:30 Serum Legionella Serology - Final 10/31/17 23:30 Cerebral Spinal Fluid - Lumbar Puncture Gram Stain - Final 10/31/17 23:30 Cerebral Spinal Fluid - Lumbar Puncture CSF Culture - Final 10/31/17 18:30 Urine - Urine - Catheterized Urine Culture - Final NO GROWTH OBTAINED 11/01/17 09:00 Urine - Urine Sunshine Legionella Antigen - Final 11/01/17 09:00 Urine - Urine Sunshine Streptococcus pneumoniae Antigen (M - Final Active Medications Chlorhexidine Gluconate (Hibiclens For Decolonization -) 1 applic TP HS [facility] Last Admin: 11/04/17 22:06 Dose: 1 applic Heparin Sodium (Porcine) (Heparin -) 5,000 unit SQ TID [facility] Last Admin: 11/05/17 06:45 Dose: 5,000 unit Levofloxacin (Levaquin 500 Mg Premixed Ivpb -) 500 mg in 100 mls @ 100 mls/hr IVPB Q48H [facility]; Protocol Last Admin: 11/03/17 10:06 Dose: 100 mls/hr Sodium Chloride (Normal Saline -) 250 mls @ 3,000 mls/hr IV PRN PRN PRN Reason: Hypotension during Dialysis Stop: 11/05/17 15:22 Potassium Chloride/Dextrose/Sod Cl (D5-1/2ns+20 Meq Kcl -) 20 meq in 1,000 mls @ 125 mls/hr IV ASDIR [facility] Mupirocin (Bactroban Ointment (For Decolonization) -) 1 applic NS BID [facility] Stop: 11/06/17 21:59 Last Admin: 11/04/17 22:05 Dose: 1 applic a/p legionella pneumonia acute renal failure-receiving HD rhabdomyolysis toxic-metabolic encephalopathy continue levaquin 500 q48h sputum for legionella sent repeat blood cultures for fever legionella serolgy may have been drawn too early in disease to be positive Problem List - Problems (1) Pneumonia Code(s): J18.9 - PNEUMONIA, UNSPECIFIED ORGANISM (2) Acute kidney failure Code(s): N17.9 - ACUTE KIDNEY FAILURE, UNSPECIFIED Qualifiers: Acute renal failure type: unspecified Qualified Code(s): N17.9 - Acute kidney failure, unspecified (3) Altered mental status Code(s): R41.82 - ALTERED MENTAL STATUS, UNSPECIFIED Qualifiers: Altered mental status type: disorientation Qualified Code(s): R41.0 - Disorientation, unspecified (4) Elevated LFTs Code(s): R94.5 - ABNORMAL RESULTS OF LIVER FUNCTION STUDIES
[2017-11-04] MEDS ORDERED: FUROSEMIDE 100 MG/10 ML INJECTABLE VIAL IVPB ONE (14:30)
--- NOTE | 2017-11-04 14:40 | PN ---
Teaching Attending Note Name of Resident: Nicci Gordon ATTENDING PHYSICIAN STATEMENT I saw and evaluated the patient. I reviewed the resident's note and discussed the case with the resident. I agree with the resident's findings and plan as documented. SUBJECTIVE: Patient remains lethargic. He is arousable but goes back to sleep quickly. Had temp 102.3 overnight. OBJECTIVE: Vital Signs Period Temp Pulse Resp BP Sys/Dangelo Pulse Ox Last 24 Hr 97.7 F-102.3 F 60-109 18-84 132-155/37-87 95-100 HEART: S1S2, RRR LUNGS: Bilateral rhonchi ABDOMEN: Soft, non-distended, normal BS EXTREMITIES: No edema Laboratory Results - last 24 hr 11/01/17 11/01/17 11/02/17 03:27 07:50 05:30 WBC RBC Hgb Hct MCV MCH MCHC RDW Plt Count MPV [id number] Activity 31.7 L Sodium Potassium Chloride Carbon Dioxide Anion Gap BUN Creatinine Creat Clearance w eGFR Random Glucose Calcium Phosphorus Magnesium Total Bilirubin AST ALT Alkaline Phosphatase LD Total 1580 Creatine Kinase Creatine Kinase Index CK-MB (CK-2) Troponin I Total Protein Total Protein (PEP) 5.4 L Albumin Albumin (PEP) 2.3 L Globulin 3.1 Albumin/Globulin Ratio 0.7 Beta Globulins 1.1 Urine Color Urine Appearance Urine pH Ur Specific [place] Urine Protein Urine Glucose (UA) Urine Ketones Urine Blood Urine Nitrite Urine Bilirubin Urine Urobilinogen Ur Leukocyte Esterase Urine WBC (Auto) Urine RBC (Auto) Ur Epithelial Cells SHARAN M-Naveed Not observed 11/03/17 11/03/17 11/03/17 15:00 15:20 19:30 WBC RBC Hgb Hct MCV MCH MCHC RDW Plt Count MPV [id number] Activity Sodium 140 Potassium 3.2 L Chloride 100 Carbon Dioxide 27 D Anion Gap 13 BUN 51 H Creatinine 7.8 H* Creat Clearance w eGFR 8.14 Random Glucose 106 Calcium 7.8 L Phosphorus Magnesium Total Bilirubin 1.4 H AST 367 H ALT 210 H Alkaline Phosphatase 80 D LD Total Creatine Kinase 46279 H Creatine Kinase Index 0.0 CK-MB (CK-2) 1.79 Troponin I Total Protein 5.3 L Total Protein (PEP) Albumin 1.8 L Albumin (PEP) Globulin Albumin/Globulin Ratio Beta Globulins Urine Color Carolyne Urine Appearance Cloudy Urine pH 5.0 Ur Specific [place] 1.015 Urine Protein 2+ H Urine Glucose (UA) Negative Urine Ketones Negative Urine Blood 3+ H Urine Nitrite Negative Urine Bilirubin Negative Urine Urobilinogen 2.0 Ur Leukocyte Esterase Negative Urine WBC (Auto) 9 Urine RBC (Auto) 22 Ur Epithelial Cells Rare SHARAN M-Naveed 11/04/17 11/04/17 11/04/17 00:20 05:30 05:30 WBC 6.1 RBC 3.30 L Hgb 10.1 L Hct 28.6 L MCV 86.5 MCH 30.5 MCHC 35.3 RDW 13.2 Plt Count 164 D MPV 7.7 [id number] Activity Sodium 141 142 Potassium 3.2 L 3.2 L Chloride 100 98 Carbon Dioxide 31 31 Anion Gap 10 13 BUN 59 H 61 H Creatinine 8.6 H* 9.3 H* Creat Clearance w eGFR 7.28 6.65 Random Glucose 117 H 127 H Calcium 7.6 L 7.4 L Phosphorus 3.6 D Magnesium 2.2 Total Bilirubin 1.2 H 1.2 H AST 411 H 446 H ALT 220 H 235 H Alkaline Phosphatase 82 85 LD Total Creatine Kinase 98241 H Creatine Kinase Index CK-MB (CK-2) Troponin I 0.21 H Total Protein 5.0 L 4.9 L Total Protein (PEP) Albumin 1.7 L 1.7 L Albumin (PEP) Globulin Albumin/Globulin Ratio Beta Globulins Urine Color Urine Appearance Urine pH Ur Specific [place] Urine Protein Urine Glucose (UA) Urine Ketones Urine Blood Urine Nitrite Urine Bilirubin Urine Urobilinogen Ur Leukocyte Esterase Urine WBC (Auto) Urine RBC (Auto) Ur Epithelial Cells SHARAN M-Naveed 11/04/17 05:30 WBC RBC Hgb Hct MCV MCH MCHC RDW Plt Count MPV [id number] Activity Sodium Potassium Chloride Carbon Dioxide Anion Gap BUN Creatinine Creat Clearance w eGFR Random Glucose Calcium Phosphorus Magnesium Total Bilirubin AST ALT Alkaline Phosphatase LD Total Creatine Kinase Cancelled Creatine Kinase Index CK-MB (CK-2) Troponin I Total Protein Total Protein (PEP) Albumin Albumin (PEP) Globulin Albumin/Globulin Ratio Beta Globulins Urine Color Urine Appearance Urine pH Ur Specific [place] Urine Protein Urine Glucose (UA) Urine Ketones Urine Blood Urine Nitrite Urine Bilirubin Urine Urobilinogen Ur Leukocyte Esterase Urine WBC (Auto) Urine RBC (Auto) Ur Epithelial Cells SHARAN Current Medications Generic Name Dose Route Start Last Admin Trade Name Freq PRN Reason Stop Dose Admin Chlorhexidine Gluconate 1 applic 11/01/17 22:00 11/03/17 21:10 Hibiclens For Decolonization - TP 1 applic HS [facility] Administration Heparin Sodium (Porcine) 5,000 unit 11/01/17 06:00 11/04/17 06:24 Heparin - SQ 5,000 unit TID [facility] Administration Sodium Chloride 250 mls @ 3,000 mls/hr 11/02/17 19:13 Normal Saline - IV 11/03/17 19:13 PRN PRN Hypotension during Dialysis Levofloxacin 500 mg in 100 mls @ 100 mls/hr 11/03/17 10:00 11/03/17 10:06 Levaquin 500 Mg Premixed Ivpb - IVPB 100 mls/hr Q48H [facility] Administration Protocol Sodium Bicarbonate 150 meq/ 1,150 mls @ 150 mls/hr 11/03/17 13:16 11/04/17 11 :02 Dextrose IV 150 mls/hr Q7H [facility] Administration Mupirocin 1 applic 11/01/17 22:00 11/04/17 02:44 Bactroban Ointment (For Decolonization) - NS 11/06/17 21:59 1 applic BID [facility] Administration ASSESSMENT AND PLAN: This is a 32 year old man with no significant history who presented to the ED with change of mental status. 1. Severe sepsis secondary to Legionella pneumonia - Continue Levaquin 2. Acute metabolic encephalopathy secondary to severe sepsis 3. Acute kidney injury - Continue HD as per nephrology - Continue bicarb drip 4. Rhabdomyolysis - Improving 5. Hepatic transaminitis secondary to sepsis 6. Hyponatremia - Improved 7. Hypokalemia - Continue to replete potassium 8. Demand ischemia secondary to sepsis 9. Anemia - Likely secondary to sepsis and IV fluid - Hemoglobin stable The care of this patient involved high complexity decision making to prevent further life threatening deterioration of the patient's condition and/or to evaluate & treat vital organ system(s) failure or risk of failure.
[2017-11-04] MEDS ORDERED: SODIUM CHLORIDE 250 ML IV PRN (15:22)
--- NOTE | 2017-11-04 15:22 | PN ---
Progress Note (short form) - Note Progress Note: Renal Follow up for SALBADOR Pt seen and examined at the bedside awake but lethagic remains oliguric s/p HD yesterday Vital Signs Temperature 98.6 F 11/04/17 12:00 Pulse Rate 90 11/04/17 12:00 Respiratory Rate 11/04/17 12:00 Blood Pressure 155/78 11/04/17 12:00 O2 Sat by Pulse Oximetry (%) 95 11/04/17 08:09 NAD, groggy RRR, No M/R Dec BS at lung bases soft NT/ND Trace LE edema CBC, BMP 11/04/17 05:30 11/04/17 05:30 Current Medications Chlorhexidine Gluconate (Hibiclens For Decolonization -) 1 applic TP HS [facility] Last Admin: 11/03/17 21:10 Dose: 1 applic Heparin Sodium (Porcine) (Heparin -) 5,000 unit SQ TID [facility] Last Admin: 11/04/17 06:24 Dose: 5,000 unit Sodium Chloride (Normal Saline -) 250 mls @ 3,000 mls/hr IV PRN PRN PRN Reason: Hypotension during Dialysis Stop: 11/03/17 19:13 Levofloxacin (Levaquin 500 Mg Premixed Ivpb -) 500 mg in 100 mls @ 100 mls/hr IVPB Q48H [facility]; Protocol Last Admin: 11/03/17 10:06 Dose: 100 mls/hr Sodium Bicarbonate 150 meq/ (Dextrose) 1,150 mls @ 150 mls/hr IV Q7H [facility] Last Admin: 11/04/17 11:02 Dose: 150 mls/hr Mupirocin (Bactroban Ointment (For Decolonization) -) 1 applic NS BID [facility] Stop: 11/06/17 21:59 Last Admin: 11/04/17 02:44 Dose: 1 applic #Acute Renal Injury secondary to legionella infection + Pigment injury from Rhabdo #AMS #Fever #Metabolic acidosis #Elevated LDH/Hemolysis/Thrombocytopenia 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
[2017-11-04 16:49] LABS: MYOGLOBIN SERUM > 30000 ng/mL (28-72)
[2017-11-04 16:49] LABS: ATYPICAL pANCA <1:20 titer (Neg:<1:20); C-ANCA <1:20 titer (Neg:<1:20); P-ANCA <1:20 titer (Neg:<1:20); PROTEINASE-3 ANTIBODY <3.5 U/mL (0.0-3.5)
--- NOTE | 2017-11-04 16:51 | PN ---
Physical Exam: SUBJECTIVE: Patient seen and examined at bedside. Pt was lethargic. Per nurse, pt Tmax overnight was 102.3 and was given IV Tylenol. No other acute events overnight. OBJECTIVE: Vital Signs Period Temp Pulse Resp BP Sys/Dangelo Pulse Ox Last 24 Hr 97.7 F-102.3 F 60-109 18-84 132-155/37-87 95-100 GENERAL: No acute distress. AAOx1. Slurred speech. Arousable with physical stimuli. HEENT: AT/NC. Moist mucus membrane. No facial droop noted. B/l pupil sluggishly reactive to light. No erythema noted in oropharynx. Tracks with eyes but is very sluggish. NECK: supple without lymphadenopathy, minimal JVD noted LUNGS: Some mild wheezing, no crackles noted. HEART: Regular, rate, and rhythm, no murmurs noted. ABDOMEN: Soft, obese, no masses or organomegaly noted. +lower abdominal tenderness. UPPER EXTREMITIES: 2+ pulses, well-perfused. No cyanosis. No clubbing. No peripheral edema. Cool b/l extremities. 2/5 muscle strength b/l extremities. LOWER EXTREMITIES: 2+ pulses, well-perfused. No calf tenderness. No peripheral edema. Cool b/l extremities. 2/5 muscle strength b/l extremities. NEUROLOGICAL: Responds to commands. SKIN: Warm, dry, normal turgor, no rashes or lesions noted, normal capillary refill. Laboratory Results - last 24 hr 11/01/17 11/01/17 11/01/17 03:27 07:50 07:50 WBC RBC Hgb Hct MCV MCH MCHC RDW Plt Count MPV [id number] Activity 31.7 L Sodium Potassium Chloride Carbon Dioxide Anion Gap BUN Creatinine Creat Clearance w eGFR Random Glucose Calcium Phosphorus Magnesium Total Bilirubin AST ALT Alkaline Phosphatase LD Total Creatine Kinase Creatine Kinase Index CK-MB (CK-2) Myoglobin Troponin I Total Protein Total Protein (PEP) 5.4 L Albumin Albumin (PEP) 2.3 L Globulin 3.1 Albumin/Globulin Ratio 0.7 Beta Globulins 1.1 Urine Color Urine Appearance Urine pH Ur Specific [place] Urine Protein Urine Glucose (UA) Urine Ketones Urine Blood Urine Nitrite Urine Bilirubin Urine Urobilinogen Ur Leukocyte Esterase Urine WBC (Auto) Urine RBC (Auto) Ur Epithelial Cells SHARAN M-Naveed Not observed c-ANCA <1:20 Proteinase 3 (PR3) <3.5 p-ANCA <1:20 Atypical p-ANCA <1:20 Myeloperoxidase Ab <9.0 11/02/17 11/03/17 11/03/17 05:30 05:30 15:00 WBC RBC Hgb Hct MCV MCH MCHC RDW Plt Count MPV [id number] Activity Sodium Potassium Chloride Carbon Dioxide Anion Gap BUN Creatinine Creat Clearance w eGFR Random Glucose Calcium Phosphorus Magnesium Total Bilirubin AST ALT Alkaline Phosphatase LD Total 1580 Creatine Kinase 73796 H Creatine Kinase Index 0.0 CK-MB (CK-2) 1.79 Myoglobin > 53974 H Troponin I Total Protein Total Protein (PEP) Albumin Albumin (PEP) Globulin Albumin/Globulin Ratio Beta Globulins Urine Color Urine Appearance Urine pH Ur Specific [place] Urine Protein Urine Glucose (UA) Urine Ketones Urine Blood Urine Nitrite Urine Bilirubin Urine Urobilinogen Ur Leukocyte Esterase Urine WBC (Auto) Urine RBC (Auto) Ur Epithelial Cells SHARAN M-Naveed c-ANCA Proteinase 3 (PR3) p-ANCA Atypical p-ANCA Myeloperoxidase Ab 11/03/17 11/04/17 11/04/17 19:30 00:20 05:30 WBC 6.1 RBC 3.30 L Hgb 10.1 L Hct 28.6 L MCV 86.5 MCH 30.5 MCHC 35.3 RDW 13.2 Plt Count 164 D MPV 7.7 [id number] Activity Sodium 141 Potassium 3.2 L Chloride 100 Carbon Dioxide 31 Anion Gap 10 BUN 59 H Creatinine 8.6 H* Creat Clearance w eGFR 7.28 Random Glucose 117 H Calcium 7.6 L Phosphorus Magnesium Total Bilirubin 1.2 H AST 411 H ALT 220 H Alkaline Phosphatase 82 LD Total Creatine Kinase Creatine Kinase Index CK-MB (CK-2) Myoglobin Troponin I Total Protein 5.0 L Total Protein (PEP) Albumin 1.7 L Albumin (PEP) Globulin Albumin/Globulin Ratio Beta Globulins Urine Color [place] Urine Appearance Cloudy Urine pH 5.0 Ur Specific [place] 1.015 Urine Protein 2+ H Urine Glucose (UA) Negative Urine Ketones Negative Urine Blood 3+ H Urine Nitrite Negative Urine Bilirubin Negative Urine Urobilinogen 2.0 Ur Leukocyte Esterase Negative Urine WBC (Auto) 9 Urine RBC (Auto) 22 Ur Epithelial Cells Rare SHARAN M-Naveed c-ANCA Proteinase 3 (PR3) p-ANCA Atypical p-ANCA Myeloperoxidase Ab 11/04/17 11/04/17 05:30 05:30 WBC RBC Hgb Hct MCV MCH MCHC RDW Plt Count MPV [id number] Activity Sodium 142 Potassium 3.2 L Chloride 98 Carbon Dioxide 31 Anion Gap 13 BUN 61 H Creatinine 9.3 H* Creat Clearance w eGFR 6.65 Random Glucose 127 H Calcium 7.4 L Phosphorus 3.6 D Magnesium 2.2 Total Bilirubin 1.2 H AST 446 H ALT 235 H Alkaline Phosphatase 85 LD Total Creatine Kinase 53110 H Cancelled Creatine Kinase Index 0.0 CK-MB (CK-2) 1.79 Myoglobin Troponin I 0.21 H Total Protein 4.9 L Total Protein (PEP) Albumin 1.7 L Albumin (PEP) Globulin Albumin/Globulin Ratio Beta Globulins Urine Color Urine Appearance Urine pH Ur Specific [place] Urine Protein Urine Glucose (UA) Urine Ketones Urine Blood Urine Nitrite Urine Bilirubin Urine Urobilinogen Ur Leukocyte Esterase Urine WBC (Auto) Urine RBC (Auto) Ur Epithelial Cells SHARAN M-Naveed c-ANCA Proteinase 3 (PR3) p-ANCA Atypical p-ANCA Myeloperoxidase Ab Active Medications Generic Name Dose Route Start Last Admin Trade Name Freq PRN Reason Stop Dose Admin Chlorhexidine Gluconate 1 applic 11/01/17 22:00 11/03/17 21:10 Hibiclens For Decolonization - TP 1 applic HS ODILIA Administration Heparin Sodium (Porcine) 5,000 unit 11/01/17 06:00 11/04/17 06:24 Heparin - SQ 5,000 unit TID ODILIA Administration Levofloxacin 500 mg in 100 mls @ 100 mls/hr 11/03/17 10:00 11/03/17 10:06 Levaquin 500 Mg Premixed Ivpb - IVPB 100 mls/hr Q48H ODILIA Administration Protocol Sodium Bicarbonate 150 meq/ 1,150 mls @ 150 mls/hr 11/03/17 13:16 11/04/17 11 :02 Dextrose IV 150 mls/hr Q7H ODILIA Administration Sodium Chloride 250 mls @ 3,000 mls/hr 11/04/17 15:22 Normal Saline - IV 11/05/17 15:22 PRN PRN Hypotension during Dialysis Mupirocin 1 applic 11/01/17 22:00 11/04/17 02:44 Bactroban Ointment (For Decolonization) - NS 11/06/17 21:59 1 applic BID ODILIA Administration UA: 2+ protein, 3+ blood with minimal RBC's, 4 WBC's Tox screen: +Marijuana, <4.0 Salicylates IMAGING: Head CT: No evidence of acute intracranial hemmorhage, edema, midline shift, mass effect, or skull fx. No CT evidence of acute territorial infarction. Abd U/S: Borderline hepatosplenomegaly w/ no evidence of acute pathology within the abdomen. Liver is borderline enlarged measuring 17.6 cm in craniocaudad dimension. It is homogenous in teexture. There is an echogenic mass within the L lobe measuring 2.cm. This is consistent w/ a hemangioma. No additional intrahepatic masses are identified. The portal flow is documented within the main portal vein. CT Abd/Pel w/o contrast: 1. Extensive L lower lobe consolidation suspicious for acute pna. There is a lesser degree of consolidation/atelectasis within the R lung base. 2. Limited study w/ no gross evidence of acute pathology within the abdomen or pelvis. EMG: pending report ASSESSMENT/PLAN: 32M w/ no significant pmhx presented to the hospital with AMS per family, persistent diarrhea, as well as bowel incontinence since admitted for Legionella pneumonia. #Pneumonia 2/2 to likely Legionella; Presumptive +Legionella Ag. -Per ID: cont Levofloxacin 500 mg Q48H -f/u Legionella serology -no blood cx from [facility] and peripheral venous x24hr -transtracheal aspiration Legionella cx pending #Toxic Metabolic Encephalopathy -Per Neuro: Neuro check Q1H. Aspiration precautions. Nerve conduction testing electromyography of the lower extremities showed mild neuropathy which is not very helpful. -CSF rechecked, no proteins present, clear CSF -blood cx (-)x24h; urine cx no growth obtained -CSF gram stain: No organisms seen. No polymorphonuclear WBC observed. -1 dose of lactulose given yesterday #Acute Renal Failure likely 2/2 Legionella infection & Rhabdo; Cr 9.3 < 8.6. No dialysis done today. -Per nephro, pt will need monitor serum ABG to ensure pH is not > 7.5 and corrected Ca remains > 7. Lasix 120mg IVPB to force diuresis. 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 Trending down, improved. -cont Bicarb GTT -urine myoglobin #Transaminitis; AST 367, ALT 210. AlkP 80. likely 2/2 Legionella infection. -Hepatitis panel negative; HIV 1&2, HIV p24 negative -In the ED, Lactulose and Rifaximin were given due to possible hepatic encephalopathy. -f/u CMP #Mild thrombocytopenia -recheck CBC in AM. -Per Heme: HUS was considered as patient was febrile, had AMS, renal failure, and mild thrombocytopenia. No schistocytes were seen on peripheral smear. Mild thrombocytopenia noted may be secondary to sepsis, liver disease, hypersplenism. -F/u D Bili, haptoglobin, fibrinogen, and LDH. #Mild troponinemia -Possibly due to demand ischemia with sepsis -ECG noted: sinus rhythm, no acute ST elevations or depressions #DVT Prophylaxis -Heparin 5000 units SQ TID #FEN -Sodium Bicarb @ 150cc/hr -serial CMP Q6H, HD tomorrow -dysphagia puree diet, nectar thick liquid per SS eval Disposition -cont to monitor in ICU Visit type - Emergency Visit Emergency Visit: Yes ED Registration Date: 11/01/17 Care time: The patient presented to the Emergency Department on the above date and was hospitalized for further evaluation of their emergent condition. - New Patient This patient is new to me today: No - Critical Care Critical Care patient: Yes Total Critical Care Time (in minutes): 35 Critical Care Statement: The care of this patient involved high complexity decision making to prevent further life threatening deterioration of the patient 's condition and/or to evaluate & treat vital organ system(s) failure or risk of failure.
--- NOTE | 2017-11-04 18:32 | PN ---
Physical Exam: SUBJECTIVE: Patient seen and examined this am and afternoon in icu. Remains lethargic and difficult to arouse. Girlfriend is at bedside. Temp spiked to 102.3 last night. OBJECTIVE: Vital Signs Period Temp Pulse Resp BP Sys/Dangelo Pulse Ox Last 24 Hr 97.7 F-102.3 F 60-109 18-90 132-159/37-87 95-100 GENERAL: Obtunded. HEAD: NC/AT EYES: EOMI ENT: MMM NECK: No JVD LUNGS: Dec BS at Bases, rhonchi b/l HEART: RRR, no MRG, S1 S2 ABDOMEN: NT, ND, No HSM. EXTREMITIES: Warm. NEUROLOGICAL: Obtunded SKIN: No rashes or gross abnormalities. Laboratory Results - last 24 hr 11/01/17 11/01/17 11/01/17 03:27 07:50 07:50 WBC RBC Hgb Hct MCV MCH MCHC RDW Plt Count MPV [id number] Activity 31.7 L Sodium Potassium Chloride Carbon Dioxide Anion Gap BUN Creatinine Creat Clearance w eGFR Random Glucose Calcium Phosphorus Magnesium Total Bilirubin AST ALT Alkaline Phosphatase LD Total Creatine Kinase Creatine Kinase Index CK-MB (CK-2) Myoglobin Troponin I Total Protein Total Protein (PEP) 5.4 L Albumin Albumin (PEP) 2.3 L Globulin 3.1 Albumin/Globulin Ratio 0.7 Beta Globulins 1.1 Urine Color Urine Appearance Urine pH Ur Specific [place] Urine Protein Urine Glucose (UA) Urine Ketones Urine Blood Urine Nitrite Urine Bilirubin Urine Urobilinogen Ur Leukocyte Esterase Urine WBC (Auto) Urine RBC (Auto) Ur Epithelial Cells SHARAN M-Naveed Not observed c-ANCA <1:20 Proteinase 3 (PR3) <3.5 p-ANCA <1:20 Atypical p-ANCA <1:20 Myeloperoxidase Ab <9.0 11/02/17 11/03/17 11/03/17 05:30 05:30 15:00 WBC RBC Hgb Hct MCV MCH MCHC RDW Plt Count MPV [id number] Activity Sodium Potassium Chloride Carbon Dioxide Anion Gap BUN Creatinine Creat Clearance w eGFR Random Glucose Calcium Phosphorus Magnesium Total Bilirubin AST ALT Alkaline Phosphatase LD Total 1580 Creatine Kinase 74360 H Creatine Kinase Index 0.0 CK-MB (CK-2) 1.79 Myoglobin > 51235 H Troponin I Total Protein Total Protein (PEP) Albumin Albumin (PEP) Globulin Albumin/Globulin Ratio Beta Globulins Urine Color Urine Appearance Urine pH Ur Specific [place] Urine Protein Urine Glucose (UA) Urine Ketones Urine Blood Urine Nitrite Urine Bilirubin Urine Urobilinogen Ur Leukocyte Esterase Urine WBC (Auto) Urine RBC (Auto) Ur Epithelial Cells SHARAN M-Naveed c-ANCA Proteinase 3 (PR3) p-ANCA Atypical p-ANCA Myeloperoxidase Ab 11/03/17 11/04/17 11/04/17 19:30 00:20 05:30 WBC 6.1 RBC 3.30 L Hgb 10.1 L Hct 28.6 L MCV 86.5 MCH 30.5 MCHC 35.3 RDW 13.2 Plt Count 164 D MPV 7.7 [id number] Activity Sodium 141 Potassium 3.2 L Chloride 100 Carbon Dioxide 31 Anion Gap 10 BUN 59 H Creatinine 8.6 H* Creat Clearance w eGFR 7.28 Random Glucose 117 H Calcium 7.6 L Phosphorus Magnesium Total Bilirubin 1.2 H AST 411 H ALT 220 H Alkaline Phosphatase 82 LD Total Creatine Kinase Creatine Kinase Index CK-MB (CK-2) Myoglobin Troponin I Total Protein 5.0 L Total Protein (PEP) Albumin 1.7 L Albumin (PEP) Globulin Albumin/Globulin Ratio Beta Globulins Urine Color [place] Urine Appearance Cloudy Urine pH 5.0 Ur Specific [place] 1.015 Urine Protein 2+ H Urine Glucose (UA) Negative Urine Ketones Negative Urine Blood 3+ H Urine Nitrite Negative Urine Bilirubin Negative Urine Urobilinogen 2.0 Ur Leukocyte Esterase Negative Urine WBC (Auto) 9 Urine RBC (Auto) 22 Ur Epithelial Cells Rare SHARAN M-Naveed c-ANCA Proteinase 3 (PR3) p-ANCA Atypical p-ANCA Myeloperoxidase Ab 11/04/17 11/04/17 05:30 05:30 WBC RBC Hgb Hct MCV MCH MCHC RDW Plt Count MPV [id number] Activity Sodium 142 Potassium 3.2 L Chloride 98 Carbon Dioxide 31 Anion Gap 13 BUN 61 H Creatinine 9.3 H* Creat Clearance w eGFR 6.65 Random Glucose 127 H Calcium 7.4 L Phosphorus 3.6 D Magnesium 2.2 Total Bilirubin 1.2 H AST 446 H ALT 235 H Alkaline Phosphatase 85 LD Total Creatine Kinase 17975 H Cancelled Creatine Kinase Index 0.0 CK-MB (CK-2) 1.79 Myoglobin Troponin I 0.21 H Total Protein 4.9 L Total Protein (PEP) Albumin 1.7 L Albumin (PEP) Globulin Albumin/Globulin Ratio Beta Globulins Urine Color Urine Appearance Urine pH Ur Specific [place] Urine Protein Urine Glucose (UA) Urine Ketones Urine Blood Urine Nitrite Urine Bilirubin Urine Urobilinogen Ur Leukocyte Esterase Urine WBC (Auto) Urine RBC (Auto) Ur Epithelial Cells SHARAN M-Naveed c-ANCA Proteinase 3 (PR3) p-ANCA Atypical p-ANCA Myeloperoxidase Ab Active Medications Generic Name Dose Route Start Last Admin Trade Name Madhuq PRN Reason Stop Dose Admin Chlorhexidine Gluconate 1 applic 11/01/17 22:00 11/03/17 21:10 Hibiclens For Decolonization - TP 1 applic HS ODILIA Administration Heparin Sodium (Porcine) 5,000 unit 11/01/17 06:00 11/04/17 17:12 Heparin - SQ 5,000 unit TID ODILIA Administration Levofloxacin 500 mg in 100 mls @ 100 mls/hr 11/03/17 10:00 11/03/17 10:06 Levaquin 500 Mg Premixed Ivpb - IVPB 100 mls/hr Q48H ODILIA Administration Protocol Sodium Bicarbonate 150 meq/ 1,150 mls @ 150 mls/hr 11/03/17 13:16 11/04/17 11 :02 Dextrose IV 150 mls/hr Q7H ODILIA Administration Sodium Chloride 250 mls @ 3,000 mls/hr 11/04/17 15:22 Normal Saline - IV 11/05/17 15:22 PRN PRN Hypotension during Dialysis Mupirocin 1 applic 11/01/17 22:00 11/04/17 14:00 Bactroban Ointment (For Decolonization) - NS 11/06/17 21:59 1 applic BID ODILIA Administration ASSESSMENT/PLAN: Pt is a 32 y/o M with no significant pmh who was at a barbeque a few days ago, developed dark, watery diarrhea and fevers. Pt observed his urine to be darker than usual and was urinating less frequently. BIBA to [facility] c/o generalized weakness and AMS per family. No recent travel or sick contacts. No skin rashes. Neuro- AMS Head CT--> No Intracranial hemmorhage, midline shift, or edema. Pulm-Legionella Pneumonia -Legionella Urine Antigen + - Received vancomycin, zosyn, ceftriaxone and flagyl in ED ID on Board-continue levaquin 500 q48h, repeat blood cultures for fever Chest XRAY today 11/04--> Increased opacifiation of the left lower hemithorax, with effacement of left diaphragm, blunting of left costophrenic angle attributed to left pleural effusion, lower lobe consolidation. Renal: SALBADOR 2/2 Hypoperfusion BUN/CR--> Creatinine 9.3 today. Continue to trend Nephrology Dr Edmondson on board Per Nephro: Continue aggressive IVF hydration with NS, Lasix as needed Abd/Pelvis CT--> Extensive left lower lobe consolidation suspcious for acute pneumonia. Atelectasis/consolidation right lung base. Abdomen Ultrasound--> Hepatosplenomegaly. 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 -Decrease IVF rate to 75cc -Lasix 160mg IVPB today x 1 to promote urine output -CPKs downtrending G.I GI on board Transaminitis secondary to sepsis continue to trend liver enzymes and recall as necessary FEN NS prn if hypotension during dialysis Monitor Electrolytes Dysphagia Puree DVT ppx: Heparin 5,000 U SQ BID Dispo: Continue to monitor in icu. Visit type - Emergency Visit Emergency Visit: Yes ED Registration Date: 11/01/17 Care time: The patient presented to the Emergency Department on the above date and was hospitalized for further evaluation of their emergent condition. - New Patient This patient is new to me today: No - Critical Care Critical Care patient: Yes Total Critical Care Time (in minutes): 35 Critical Care Statement: The care of this patient involved high complexity decision making to prevent further life threatening deterioration of the patient 's condition and/or to evaluate & treat vital organ system(s) failure or risk of failure.
[2017-11-04] MEDS: CHLORHEXIDINE GLUCONATE 4% CLEANSER FOR DECOLONIZATION TP SCH (22:06)
[2017-11-05 06:31] LABS: MAGNESIUM 2.4 mg/dL (1.8-2.4)
[2017-11-05] MEDS: DEXTROSE 5%-WATER - 1,000 ML with SODIUM BICARBONATE 8.4% - 150 MEQ IV SCH (06:42)
[2017-11-05] MEDS: HEPARIN NA (PORCINE) 5,000 UNITS/ML 1ML VIAL SQ SCH ×3 (06:45→21:43)
[2017-11-05 07:24] LABS: HEMATOCRIT 29.5 % (35.4-49); HEMOGLOBIN 10.3 GM/dL (11.7-16.9); MCH 30.5 pg (25.7-33.7); MCHC 34.9 g/dl (32.0-35.9); MEAN CELL VOLUME 87.4 fl (80-96); MEAN PLT VOLUME 7.9 fl (7.5-11.1); PLATELET COUNT 217 K/MM3 (134-434); RBC 3.37 M/mm3 (4.00-5.60); RDW 13.4 % (11.9-15.9); WHITE BLOOD COUNT 7.7 K/mm3 (4.0-10.0)
[2017-11-05 08:03] LABS: ALBUMIN 1.7 g/dl (3.4-5.0); ALK PHOS 109 U/L (45-117); ANION GAP 12 (8-16); BLOOD UREA NITROGEN 71 mg/dL (7-18); CALCIUM 7.2 mg/dL (8.5-10.1); CHLORIDE 92 mmol/L (98-107); CO2 37 mmol/L (21-32); GLUCOSE,RANDOM 124 mg/dL (74-106); PHOSPHOROUS 5.1 mg/dL (2.5-4.9); POTASSIUM 3.1 mmol/L (3.5-5.1); SGOT/AST 362 U/L (15-37); SGPT/ALT 221 U/L (12-78); SODIUM 141 mmol/L (136-145); TOT PROT 4.9 g/dl (6.4-8.2)
[2017-11-05 08:41] LABS: CREATININE 10.7 mg/dL (0.7-1.3)
--- NOTE | 2017-11-05 09:48 | PN ---
Progress Note (short form) - Note Progress Note: no fevers overnight still with rhabdomyolysis being dialyzed Vital Signs Period Temp Pulse Resp BP Sys/Dangelo Pulse Ox Last 24 Hr 98.2 F-99.6 F 60-103 18-90 128-159/75-86 95 sleepy but arousable alert- still thinks he is at [facility], knows his name, date, answers questions appropriately no pain cor-rrr lungs decreased bs at bases abd- soft, nt ext -no edema +hernandez CBC, BMP 11/05/17 05:30 11/05/17 05:30 Microbiology 10/31/17 18:00 Blood - Peripheral Venous Blood Culture - Preliminary NO GROWTH OBTAINED AFTER 96 HOURS, INCUBATION TO CONTINUE FOR 1 DAYS. 10/31/17 18:05 Blood - Peripheral Venous Blood Culture - Preliminary NO GROWTH OBTAINED AFTER 96 HOURS, INCUBATION TO CONTINUE FOR 1 DAYS. 11/03/17 15:20 Blood - Shiley Catheter Blood Culture - Preliminary NO GROWTH OBTAINED AFTER 24 HOURS, INCUBATION TO CONTINUE FOR 4 DAYS. 11/03/17 15:20 Blood - Peripheral Venous Blood Culture - Preliminary NO GROWTH OBTAINED AFTER 24 HOURS, INCUBATION TO CONTINUE FOR 4 DAYS. 11/04/17 10:20 Transtracheal Aspiration Legionella Culture - Preliminary 11/02/17 05:30 Serum Legionella Serology - Final 10/31/17 23:30 Cerebral Spinal Fluid - Lumbar Puncture Gram Stain - Final 10/31/17 23:30 Cerebral Spinal Fluid - Lumbar Puncture CSF Culture - Final 10/31/17 18:30 Urine - Urine - Catheterized Urine Culture - Final NO GROWTH OBTAINED 11/01/17 09:00 Urine - Urine Hernandez Legionella Antigen - Final 11/01/17 09:00 Urine - Urine Hernandez Streptococcus pneumoniae Antigen (M - Final Current Medications Chlorhexidine Gluconate (Hibiclens For Decolonization -) 1 applic TP HS ODILIA Last Admin: 11/04/17 22:06 Dose: 1 applic Heparin Sodium (Porcine) (Heparin -) 5,000 unit SQ TID ODILIA Last Admin: 11/05/17 06:45 Dose: 5,000 unit Levofloxacin (Levaquin 500 Mg Premixed Ivpb -) 500 mg in 100 mls @ 100 mls/hr IVPB Q48H ODILIA; Protocol Last Admin: 11/03/17 10:06 Dose: 100 mls/hr Sodium Chloride (Normal Saline -) 250 mls @ 3,000 mls/hr IV PRN PRN PRN Reason: Hypotension during Dialysis Stop: 11/05/17 15:22 Potassium Chloride/Dextrose/Sod Cl (D5-1/2ns+20 Meq Kcl -) 20 meq in 1,000 mls @ 125 mls/hr IV ASDIR ODILIA Mupirocin (Bactroban Ointment (For Decolonization) -) 1 applic NS BID ODILIA Stop: 11/06/17 21:59 Last Admin: 11/04/17 22:05 Dose: 1 applic a/p legionella pneumonia acute renal failure-receiving HD rhabdomyolysis active toxic-metabolic encephalopathy-about the same continue levaquin 500 q48h sputum for legionella sent iv fluid management per renal neurology f/u d/w renal Problem List - Problems (1) Pneumonia Code(s): J18.9 - PNEUMONIA, UNSPECIFIED ORGANISM (2) Acute kidney failure Code(s): N17.9 - ACUTE KIDNEY FAILURE, UNSPECIFIED Qualifiers: Acute renal failure type: unspecified Qualified Code(s): N17.9 - Acute kidney failure, unspecified (3) Altered mental status Code(s): R41.82 - ALTERED MENTAL STATUS, UNSPECIFIED Qualifiers: Altered mental status type: disorientation Qualified Code(s): R41.0 - Disorientation, unspecified (4) Elevated LFTs Code(s): R94.5 - ABNORMAL RESULTS OF LIVER FUNCTION STUDIES
--- NOTE | 2017-11-05 09:55 | PN ---
Progress Note, Physician Chief Complaint: The patient seen in the ICU. Awake, alert. Hemodialysis in progress. Oliguria persists. 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 Remains oliguric, azotemic, and dialysis dependent. , - Current Medication List Current Medications: Active Medications Chlorhexidine Gluconate (Hibiclens For Decolonization -) 1 applic TP HS [facility] Last Admin: 11/04/17 22:06 Dose: 1 applic Heparin Sodium (Porcine) (Heparin -) 5,000 unit SQ TID [facility] Last Admin: 11/05/17 06:45 Dose: 5,000 unit Levofloxacin (Levaquin 500 Mg Premixed Ivpb -) 500 mg in 100 mls @ 100 mls/hr IVPB Q48H [facility]; Protocol Last Admin: 11/03/17 10:06 Dose: 100 mls/hr Sodium Chloride (Normal Saline -) 250 mls @ 3,000 mls/hr IV PRN PRN PRN Reason: Hypotension during Dialysis Stop: 11/05/17 15:22 Potassium Chloride/Dextrose/Sod Cl (D5-1/2ns+20 Meq Kcl -) 20 meq in 1,000 mls @ 125 mls/hr IV ASDIR [facility] Mupirocin (Bactroban Ointment (For Decolonization) -) 1 applic NS BID [facility] Stop: 11/06/17 21:59 Last Admin: 11/04/17 22:05 Dose: 1 applic - Objective Vital Signs: Vital Signs Temperature 98.4 F 11/05/17 07:10 Pulse Rate 102 H 11/05/17 09:45 Respiratory Rate 18 11/05/17 09:45 Blood Pressure 128/84 11/05/17 09:45 O2 Sat by Pulse Oximetry (%) 95 11/04/17 19:47 Constitutional: Yes: Well Nourished, Anxious, Other (lethargic) Eyes: Yes: Conjunctiva Clear HENT: Yes: Atraumatic Neck: Yes: Trachea Midline Cardiovascular: Yes: Regular Rate and Rhythm, S1, S2 Respiratory: Yes: CTA Bilaterally, Diminished Gastrointestinal: Yes: Normal Bowel Sounds, Soft Genitourinary: Yes: Sunshine Present. No: CVA Tenderness - Left, CVA Tenderness - Right Musculoskeletal: Yes: Back Pain, Joint Stiffness Edema: Yes Edema: LLE: Trace, RLE: Trace Labs: CBC, BMP 11/05/17 05:30 11/05/17 05:30 INR, PTT INR 1.36 (0.83-1.09) H 11/02/17 05:30 Problem List - Problems (1) Legionella pneumonia Code(s): A48.1 - LEGIONNAIRES' DISEASE (2) Acute kidney failure Code(s): N17.9 - ACUTE KIDNEY FAILURE, UNSPECIFIED Qualifiers: Acute renal failure type: unspecified Qualified Code(s): N17.9 - Acute kidney failure, unspecified (3) Altered mental status Code(s): R41.82 - ALTERED MENTAL STATUS, UNSPECIFIED Qualifiers: Altered mental status type: disorientation Qualified Code(s): R41.0 - Disorientation, unspecified (4) Elevated LFTs Code(s): R94.5 - ABNORMAL RESULTS OF LIVER FUNCTION STUDIES (5) Fever Code(s): R50.9 - FEVER, UNSPECIFIED Qualifiers: Fever type: unspecified Qualified Code(s): R50.9 - Fever, unspecified (6) Pneumonia Code(s): J18.9 - PNEUMONIA, UNSPECIFIED ORGANISM Assessment/Plan 32 y/o male with: #Acute Renal Injury secondary to legionella infection + 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 No indication for renal recovery. Tendency for Metabolic alkalosis. Will DC IV Bicarb, and modify IV as ordered. reviewed the management with the ICU team. Will continue the dialysis Next HD tomorrow. Thank you. Tiara Ribera MD
[2017-11-05] MEDS: D5-1/2NS+20 MEQ KCL - 20 MEQ/1,000 ML INFUS.BAG IV SCH (09:59)
[2017-11-05] MEDS: MUPIROCIN 2% TOPICAL OINTMENT FOR DECOLONIZATION NS SCH ×2 (10:57→21:43)
--- NOTE | 2017-11-05 10:58 | PN ---
Progress Note, CRANBERRY SORTER - Note Progress Note: Selected Entries 11/04/17 11/04/17 11/04/17 01:00 05:00 07:57 Temperature 102.3 F H 97.7 F 97.8 F Laboratory Tests 11/02/17 11/04/17 05:30 05:30 WBC 6.1 PT with INR 15.40 H Reviewed pt's cognitive status, Apraxia with difficulty initiating motor activity,swallowing function with staff. Speech imprecise with reduced articulatory excursion secondary to Apraxia. Performance similar to yesterday. Remembered that I had tested his swallowing yesterday. Pt resistent to PO intake, refusing most. Given Ensure plus by staff. Reviewed limited absorption with grainy result. Pt oriented but confused. He knows he is at [facility] but unaware of why. Pt educated on Legionella with infection to lungs and brain, adversely affecting motor initiation. He said Thank you repeatedly once educated.Intermittent cough with sips of OJ thick liquid at bedside. When reassessed, oj was nectar. Pt aspirates silently on nectar, observed during MBS. REC: Please continue to re-educate rationale for food type, no straws etc, with improved cooperation and response.Pt needs to be educated repeatedly regarding his management eg "You cant have thin liquid because it goes in your lungs." "Open mouth wide, use your lips to take the food, now swallow quickly a few times, until your throat is clear." Once educated, pt understands and becomes more cooperative. Please inform him of rationale each time. MBS rec reviewed including HOB to 90, chin flexed, no straws, honey thick on tsp , tell pt to swallow quickly, allow pt to swallow several times before next bite. Pt is lactose intolerant Allow girlfriend to bring food from home if blenderized smooth with extra liquid. Nursing to assess. Family purchase Simply thick to mix with supplements. Pt will need intensive rehabilitation upon d/c- Acute rehab vs LTAC, once stronger and medically stable.
--- NOTE | 2017-11-05 11:01 | PN ---
Teaching Attending Note Name of Resident: Doug Gil ATTENDING PHYSICIAN STATEMENT I saw and evaluated the patient. I reviewed the resident's note and discussed the case with the resident. I agree with the resident's findings and plan as documented. SUBJECTIVE: Pt seen and examined in the ICU. Remains lethargic. Febrile this AM. Currently on HD. Remains oliguric. OBJECTIVE: Vital Signs Period Temp Pulse Resp BP Sys/Dangelo Pulse Ox Last 24 Hr 98.2 F-99.6 F 60-107 18-90 128-159/75-86 95 Intake & Output 11/02/17 11/03/17 11/04/17 11/05/17 23:59 23:59 23:59 23:59 Intake Total 2750 2600 3865 965 Output Total 340 360 235 200 Balance 2410 2240 3630 765 Weight 104.462 kg 103.419 kg Gen: lethargic but arousable Heart: RRR Lung: bilateral scattered rhonchi Abd: soft, nontender Ext: no edema CBC, BMP 11/05/17 05:30 11/05/17 05:30 Active Medications Chlorhexidine Gluconate (Hibiclens For Decolonization -) 1 applic TP HS ODILIA Last Admin: 11/04/17 22:06 Dose: 1 applic Heparin Sodium (Porcine) (Heparin -) 5,000 unit SQ TID ODILIA Last Admin: 11/05/17 06:45 Dose: 5,000 unit Levofloxacin (Levaquin 500 Mg Premixed Ivpb -) 500 mg in 100 mls @ 100 mls/hr IVPB Q48H ODILIA; Protocol Last Admin: 11/03/17 10:06 Dose: 100 mls/hr Sodium Chloride (Normal Saline -) 250 mls @ 3,000 mls/hr IV PRN PRN PRN Reason: Hypotension during Dialysis Stop: 11/05/17 15:22 Potassium Chloride/Dextrose/Sod Cl (D5-1/2ns+20 Meq Kcl -) 20 meq in 1,000 mls @ 125 mls/hr IV ASDIR ODILIA Last Admin: 11/05/17 09:59 Dose: 125 mls/hr Mupirocin (Bactroban Ointment (For Decolonization) -) 1 applic NS BID ODILIA Stop: 11/06/17 21:59 Last Admin: 11/04/17 22:05 Dose: 1 applic ASSESSMENT AND PLAN: Legionella Pneumonia Severe Sepsis Acute Kidney Injury requiring HD Metabolic Acidosis Altered Mental Status Thrombocytopenia Hyponatremia Elevated LFTs +Troponins likely Demand Ischemia Rhabdomyolysis - antibiotics per ID - HD, IVF per renal - monitor urine output, creatinine - replete lytes - monitor CPK, CBC - trend LFTs - continue ICU monitoring for now critical care time spent in reviewing chart, evaluating patient and formulating plan 35 min
--- NOTE | 2017-11-05 11:45 | PN ---
Physical Exam: SUBJECTIVE: Patient seen and examined this am in icu. Pt remains obtunded and difficult to arouse. Currently receiving HD. OBJECTIVE: Vital Signs Period Temp Pulse Resp BP Sys/Dangelo Pulse Ox Last 24 Hr 98.2 F-99.6 F 60-107 18-90 123-159/75-86 95 GENERAL: Obtunded. HEAD: NC/AT EYES: EOMI ENT: MMM NECK: No JVD LUNGS: Dec BS at Bases, rhonchi b/l HEART: RRR, no MRG, S1 S2 ABDOMEN: NT, ND, No HSM. EXTREMITIES: Warm. NEUROLOGICAL: Obtunded SKIN: No rashes or gross abnormalities. Laboratory Results - last 24 hr 11/01/17 11/01/17 11/02/17 02:44 07:50 05:30 WBC RBC Hgb Hct MCV MCH MCHC RDW Plt Count MPV Sodium Potassium Chloride Carbon Dioxide Anion Gap BUN Creatinine Creat Clearance w eGFR Random Glucose Calcium Phosphorus Magnesium Total Bilirubin AST ALT Alkaline Phosphatase LD Total 1580 H Creatine Kinase Creatine Kinase Index CK-MB (CK-2) Myoglobin Troponin I Total Protein Albumin LDL 1 Fraction 9.0 L LDL 2 Fraction 14.0 L LDL 3 Fraction 13.0 L LDL 4 Fraction 9.0 LDL 5 Fraction 55.0 H Aldolase c-ANCA <1:20 Proteinase 3 (PR3) <3.5 p-ANCA <1:20 Atypical p-ANCA <1:20 Myeloperoxidase Ab <9.0 C. trachomatis (GIOVANNI) Negative N. gonorrhoeae (GIOVANNI) Negative 11/03/17 11/04/17 11/05/17 05:30 05:30 05:30 WBC RBC Hgb Hct MCV MCH MCHC RDW Plt Count MPV Sodium 142 141 Potassium 3.2 L 3.1 L Chloride 98 92 L Carbon Dioxide 31 37 H Anion Gap 13 12 BUN 61 H 71 H Creatinine 9.3 H* 10.7 H* Creat Clearance w eGFR 6.65 5.65 Random Glucose 127 H 124 H Calcium 7.4 L 7.2 L Phosphorus 3.6 D 5.1 H D Magnesium 2.2 2.4 Total Bilirubin 1.2 H 1.0 AST 446 H 362 H ALT 235 H 221 H Alkaline Phosphatase 85 109 D LD Total Creatine Kinase 30576 H H Creatine Kinase Index 0.0 0.0 CK-MB (CK-2) 1.79 1.46 Myoglobin > 55711 H Troponin I 0.21 H Total Protein 4.9 L 4.9 L Albumin 1.7 L 1.7 L LDL 1 Fraction LDL 2 Fraction LDL 3 Fraction LDL 4 Fraction LDL 5 Fraction Aldolase 72.0 H c-ANCA Proteinase 3 (PR3) p-ANCA Atypical p-ANCA Myeloperoxidase Ab C. trachomatis (GIOVANNI) N. gonorrhoeae (GIOVANNI) 11/05/17 11/05/17 05:30 05:30 WBC 7.7 RBC 3.37 L Hgb 10.3 L Hct 29.5 L MCV 87.4 MCH 30.5 MCHC 34.9 RDW 13.4 Plt Count 217 D MPV 7.9 Sodium Cancelled Potassium Cancelled Chloride Cancelled Carbon Dioxide Cancelled Anion Gap Cancelled BUN Cancelled Creatinine Cancelled Creat Clearance w eGFR Cancelled Random Glucose Cancelled Calcium Cancelled Phosphorus Cancelled Magnesium Total Bilirubin Cancelled AST Cancelled ALT Cancelled Alkaline Phosphatase Cancelled LD Total Creatine Kinase Creatine Kinase Index CK-MB (CK-2) Myoglobin Troponin I Total Protein Cancelled Albumin Cancelled LDL 1 Fraction LDL 2 Fraction LDL 3 Fraction LDL 4 Fraction LDL 5 Fraction Aldolase c-ANCA Proteinase 3 (PR3) p-ANCA Atypical p-ANCA Myeloperoxidase Ab C. trachomatis (GIOVANNI) N. gonorrhoeae (GIOVANNI) Active Medications Generic Name Dose Route Start Last Admin Trade Name Freq PRN Reason Stop Dose Admin Chlorhexidine Gluconate 1 applic 11/01/17 22:00 11/04/17 22:06 Hibiclens For Decolonization - TP 1 applic HS ODILIA Administration Heparin Sodium (Porcine) 5,000 unit 11/01/17 06:00 11/05/17 06:45 Heparin - SQ 5,000 unit TID ODILIA Administration Levofloxacin 500 mg in 100 mls @ 100 mls/hr 11/03/17 10:00 11/05/17 11:07 Levaquin 500 Mg Premixed Ivpb - IVPB 100 mls/hr Q48H ODILIA Administration Protocol Sodium Chloride 250 mls @ 3,000 mls/hr 11/04/17 15:22 Normal Saline - IV 11/05/17 15:22 PRN PRN Hypotension during Dialysis Potassium Chloride/Dextrose/Sod Cl 20 meq in 1,000 mls @ 125 mls/hr 11/05/17 09:45 11/05/17 09:59 D5-1/2ns+20 Meq Kcl - IV 125 mls/hr ASDIR ODILIA Administration Mupirocin 1 applic 11/01/17 22:00 11/04/17 22:05 Bactroban Ointment (For Decolonization) - NS 11/06/17 21:59 1 applic BID ODILIA Administration ASSESSMENT/PLAN: Pt is a 32 y/o M with no significant pmh who was at a barbeque a few days ago, developed dark, watery diarrhea and fevers. Pt observed his urine to be darker than usual and was urinating less frequently. BIBA to [facility] [place]NOTE 2] c/o generalized weakness and AMS per family. No recent travel or sick contacts. No skin rashes. Neuro- AMS Head CT--> No Intracranial hemmorhage, midline shift, or edema. Pulm-Legionella Pneumonia -Legionella Urine Antigen + ID on Board-continue levaquin 500 q48h Chest XRAY 11/04--> Increased opacifiation of the left lower hemithorax, with effacement of left diaphragm, blunting of left costophrenic angle attributed to left pleural effusion, lower lobe consolidation. Chest X-Ray 11/05-->Pending Renal: [place] 2/2 Hypoperfusion BUN/CR--> Creatinine 10.7 today. Continue to trend Nephrology Dr Edmondson on board Per Nephro: Continue aggressive IVF hydration with NS, Lasix as needed Abd/Pelvis CT--> Extensive left lower lobe consolidation suspcious for acute pneumonia. Atelectasis/consolidation right lung base. Abdomen Ultrasound--> Hepatosplenomegaly. Receiving HD Now Monitor serum ABG to ensure ph does not exceed 7.5 and corrected CA remains > 7 -CPK today-continue to trend. G.I GI on board Transaminitis secondary to sepsis continue to trend liver enzymes and recall as necessary FEN NS prn if hypotension during dialysis Monitor Electrolytes Dysphagia Puree DVT ppx: Heparin 5,000 U SQ BID Dispo: Continue to monitor in icu. Visit type - Emergency Visit Emergency Visit: Yes ED Registration Date: 11/01/17 Care time: The patient presented to the Emergency Department on the above date and was hospitalized for further evaluation of their emergent condition. - New Patient This patient is new to me today: No - Critical Care Critical Care patient: Yes Total Critical Care Time (in minutes): 35 Critical Care Statement: The care of this patient involved high complexity decision making to prevent further life threatening deterioration of the patient 's condition and/or to evaluate & treat vital organ system(s) failure or risk of failure.
--- NOTE | 2017-11-05 16:39 | PN ---
Physical Exam: SUBJECTIVE: Patient seen and examined at bedside. Per nurse, afebrile overnight. Upon exam, pt obtunded, unable to perform exam. Pt received HD. OBJECTIVE: Vital Signs Period Temp Pulse Resp BP Sys/Dangelo Pulse Ox Last 24 Hr 98.2 F-99.6 F 60-107 18-90 123-159/75-94 95-98 GENERAL: No acute distress. AAOx1. Slurred speech. Arousable with physical stimuli. HEENT: AT/NC. Moist mucus membrane. No facial droop noted. B/l pupil sluggishly reactive to light. No erythema noted in oropharynx. Tracks with eyes but is very sluggish. NECK: supple without lymphadenopathy, minimal JVD noted LUNGS: Some mild wheezing, no crackles noted. HEART: Regular, rate, and rhythm, no murmurs noted. ABDOMEN: Soft, obese, no masses or organomegaly noted. +lower abdominal tenderness. UPPER EXTREMITIES: 2+ pulses, well-perfused. No cyanosis. No clubbing. No peripheral edema. Cool b/l extremities. 2/5 muscle strength b/l extremities. LOWER EXTREMITIES: 2+ pulses, well-perfused. No calf tenderness. No peripheral edema. Cool b/l extremities. 2/5 muscle strength b/l extremities. NEUROLOGICAL: Responds to commands. SKIN: Warm, dry, normal turgor, no rashes or lesions noted, normal capillary refill. Laboratory Results - last 24 hr 11/01/17 11/01/17 11/02/17 02:44 07:50 05:30 WBC RBC Hgb Hct MCV MCH MCHC RDW Plt Count MPV Sodium Potassium Chloride Carbon Dioxide Anion Gap BUN Creatinine Creat Clearance w eGFR Random Glucose Calcium Phosphorus Magnesium Total Bilirubin AST ALT Alkaline Phosphatase LD Total 1580 H Creatine Kinase Creatine Kinase Index CK-MB (CK-2) Myoglobin Total Protein Albumin LDL 1 Fraction 9.0 L LDL 2 Fraction 14.0 L LDL 3 Fraction 13.0 L LDL 4 Fraction 9.0 LDL 5 Fraction 55.0 H Aldolase c-ANCA <1:20 Proteinase 3 (PR3) <3.5 p-ANCA <1:20 Atypical p-ANCA <1:20 Myeloperoxidase Ab <9.0 C. trachomatis (GIOVANNI) Negative N. gonorrhoeae (GIOVANNI) Negative 11/03/17 11/05/17 11/05/17 05:30 05:30 05:30 WBC RBC Hgb Hct MCV MCH MCHC RDW Plt Count MPV Sodium 141 Cancelled Potassium 3.1 L Cancelled Chloride 92 L Cancelled Carbon Dioxide 37 H Cancelled Anion Gap 12 Cancelled BUN 71 H Cancelled Creatinine 10.7 H* Cancelled Creat Clearance w eGFR 5.65 Cancelled Random Glucose 124 H Cancelled Calcium 7.2 L Cancelled Phosphorus 5.1 H D Cancelled Magnesium 2.4 Total Bilirubin 1.0 Cancelled AST 362 H Cancelled ALT 221 H Cancelled Alkaline Phosphatase 109 D Cancelled LD Total Creatine Kinase 81731 H Creatine Kinase Index 0.0 CK-MB (CK-2) 1.46 Myoglobin > 70288 H Total Protein 4.9 L Cancelled Albumin 1.7 L Cancelled LDL 1 Fraction LDL 2 Fraction LDL 3 Fraction LDL 4 Fraction LDL 5 Fraction Aldolase 72.0 H c-ANCA Proteinase 3 (PR3) p-ANCA Atypical p-ANCA Myeloperoxidase Ab C. trachomatis (GIOVANNI) N. gonorrhoeae (GIOVANNI) 11/05/17 05:30 WBC 7.7 RBC 3.37 L Hgb 10.3 L Hct 29.5 L MCV 87.4 MCH 30.5 MCHC 34.9 RDW 13.4 Plt Count 217 D MPV 7.9 Sodium Potassium Chloride Carbon Dioxide Anion Gap BUN Creatinine Creat Clearance w eGFR Random Glucose Calcium Phosphorus Magnesium Total Bilirubin AST ALT Alkaline Phosphatase LD Total Creatine Kinase Creatine Kinase Index CK-MB (CK-2) Myoglobin Total Protein Albumin LDL 1 Fraction LDL 2 Fraction LDL 3 Fraction LDL 4 Fraction LDL 5 Fraction Aldolase c-ANCA Proteinase 3 (PR3) p-ANCA Atypical p-ANCA Myeloperoxidase Ab C. trachomatis (GIOVANNI) N. gonorrhoeae (GIOVANNI) Active Medications Generic Name Dose Route Start Last Admin Trade Name Freq PRN Reason Stop Dose Admin Chlorhexidine Gluconate 1 applic 11/01/17 22:00 11/04/17 22:06 Hibiclens For Decolonization - TP 1 applic HS ODILIA Administration Heparin Sodium (Porcine) 5,000 unit 11/01/17 06:00 11/05/17 15:58 Heparin - SQ 5,000 unit TID ODILIA Administration Levofloxacin 500 mg in 100 mls @ 100 mls/hr 11/03/17 10:00 11/05/17 11:07 Levaquin 500 Mg Premixed Ivpb - IVPB 100 mls/hr Q48H ODILIA Administration Protocol Sodium Chloride 250 mls @ 3,000 mls/hr 11/04/17 15:22 Normal Saline - IV 11/05/17 15:22 PRN PRN Hypotension during Dialysis Potassium Chloride/Dextrose/Sod Cl 20 meq in 1,000 mls @ 125 mls/hr 11/05/17 09:45 11/05/17 09:59 D5-1/2ns+20 Meq Kcl - IV 125 mls/hr ASDIR ODILIA Administration Mupirocin 1 applic 11/01/17 22:00 11/05/17 10:57 Bactroban Ointment (For Decolonization) - NS 11/06/17 21:59 1 applic BID ODILIA Administration UA: 2+ protein, 3+ blood with minimal RBC's, 4 WBC's Tox screen: +Marijuana, <4.0 Salicylates IMAGING: Head CT: No evidence of acute intracranial hemmorhage, edema, midline shift, mass effect, or skull fx. No CT evidence of acute territorial infarction. Abd U/S: Borderline hepatosplenomegaly w/ no evidence of acute pathology within the abdomen. Liver is borderline enlarged measuring 17.6 cm in craniocaudad dimension. It is homogenous in teexture. There is an echogenic mass within the L lobe measuring 2.cm. This is consistent w/ a hemangioma. No additional intrahepatic masses are identified. The portal flow is documented within the main portal vein. CT Abd/Pel w/o contrast: 1. Extensive L lower lobe consolidation suspicious for acute pna. There is a lesser degree of consolidation/atelectasis within the R lung base. 2. Limited study w/ no gross evidence of acute pathology within the abdomen or pelvis. EMG: pending report ASSESSMENT/PLAN: 32M w/ no significant pmhx presented to the hospital with AMS per family, persistent diarrhea, as well as bowel incontinence since admitted for Legionella pneumonia. #Pneumonia 2/2 to likely Legionella; Presumptive +Legionella Ag. -Per ID: cont Levofloxacin 500 mg Q48H -f/u Legionella serology -no blood cx from [facility] site and peripheral venous x48hr -transtracheal aspiration Legionella cx pending #Toxic Metabolic Encephalopathy -Per Neuro: Neuro check Q1H. Aspiration precautions. Nerve conduction testing electromyography of the lower extremities showed mild neuropathy which is not very helpful. -CSF rechecked, no proteins present, clear CSF -blood cx (-)x48h; urine cx no growth obtained -CSF gram stain: No organisms seen. No polymorphonuclear WBC observed. #Acute Renal Failure likely 2/2 Legionella infection & Rhabdo; Cr 10.7 < 9.3. HD today. -Per nephro, pt will need monitor serum ABG to ensure pH is not > 7.5 and corrected Ca remains > 7. Lasix 120mg IVPB to force diuresis. Goal urine pH goal > 6.5 -HD today, cont to monitor Cr -ADAMTS-13 31.7, c-ANCA <1:20, p-ANCA <1:20, AJ neg, SHARAN M-spike not observed -cont HD tomorrow -d/c IV bicarb #Acute [place]; [place] [address] < [address]458 < < 23829. Trending down, improved. -cont to trend CK #Transaminitis; AST 367, ALT 210. AlkP 80. likely 2/2 Legionella infection. -Hepatitis panel negative; HIV 1&2, HIV p24 negative -In the ED, Lactulose and Rifaximin were given due to possible hepatic encephalopathy. -f/u CMP #Mild thrombocytopenia. Resolved. Now trending up, currently 217 < 164. -recheck CBC in AM. -Per Heme: HUS was considered as patient was febrile, had AMS, renal failure, and mild thrombocytopenia. No schistocytes were seen on peripheral smear. Mild thrombocytopenia noted may be secondary to sepsis, liver disease, hypersplenism. -F/u D Bili, haptoglobin, fibrinogen, and LDH. #Mild troponinemia -Possibly due to demand ischemia with sepsis -ECG noted: sinus rhythm, no acute ST elevations or depressions #DVT Prophylaxis -Heparin 5000 units SQ TID #FEN -D5-1/2Ns+20 Meq KCl @ 125cc/hr -serial CMP Q6H, HD tomorrow -dysphagia puree diet, nectar thick liquid per SS eval Disposition -cont to monitor in ICU Visit type - Emergency Visit Emergency Visit: Yes ED Registration Date: 11/01/17 Care time: The patient presented to the Emergency Department on the above date and was hospitalized for further evaluation of their emergent condition. - New Patient This patient is new to me today: No - Critical Care Critical Care patient: Yes Total Critical Care Time (in minutes): 35 Critical Care Statement: The care of this patient involved high complexity decision making to prevent further life threatening deterioration of the patient 's condition and/or to evaluate & treat vital organ system(s) failure or risk of failure.
--- NOTE | 2017-11-05 17:09 | PN ---
Teaching Attending Note Name of Resident: Nicci Gordon ATTENDING PHYSICIAN STATEMENT I saw and evaluated the patient. I reviewed the resident's note and discussed the case with the resident. I agree with the resident's findings and plan as documented. SUBJECTIVE: Patient remains lethargic. OBJECTIVE: Vital Signs Period Temp Pulse Resp BP Sys/Dangelo Pulse Ox Last 24 Hr 98.2 F-99.6 F 60-107 18-90 123-159/75-94 95-98 HEART: S1S2, RRR LUNGS: Bilateral rhonchi ABDOMEN: Soft, non-distended, non-tender, normal BS EXTREMITIES: No edema Laboratory Results - last 24 hr 11/01/17 11/02/17 11/03/17 02:44 05:30 05:30 WBC RBC Hgb Hct MCV MCH MCHC RDW Plt Count MPV Sodium Potassium Chloride Carbon Dioxide Anion Gap BUN Creatinine Creat Clearance w eGFR Random Glucose Calcium Phosphorus Magnesium Total Bilirubin AST ALT Alkaline Phosphatase LD Total 1580 H Creatine Kinase Creatine Kinase Index CK-MB (CK-2) Total Protein Albumin LDL 1 Fraction 9.0 L LDL 2 Fraction 14.0 L LDL 3 Fraction 13.0 L LDL 4 Fraction 9.0 LDL 5 Fraction 55.0 H Aldolase 72.0 H C. trachomatis (GIOVANNI) Negative N. gonorrhoeae (GIOVANNI) Negative 11/05/17 11/05/17 11/05/17 05:30 05:30 05:30 WBC 7.7 RBC 3.37 L Hgb 10.3 L Hct 29.5 L MCV 87.4 MCH 30.5 MCHC 34.9 RDW 13.4 Plt Count 217 D MPV 7.9 Sodium 141 Cancelled Potassium 3.1 L Cancelled Chloride 92 L Cancelled Carbon Dioxide 37 H Cancelled Anion Gap 12 Cancelled BUN 71 H Cancelled Creatinine 10.7 H* Cancelled Creat Clearance w eGFR 5.65 Cancelled Random Glucose 124 H Cancelled Calcium 7.2 L Cancelled Phosphorus 5.1 H D Cancelled Magnesium 2.4 Total Bilirubin 1.0 Cancelled AST 362 H Cancelled ALT 221 H Cancelled Alkaline Phosphatase 109 D Cancelled LD Total Creatine Kinase 25557 H Creatine Kinase Index 0.0 CK-MB (CK-2) 1.46 Total Protein 4.9 L Cancelled Albumin 1.7 L Cancelled LDL 1 Fraction LDL 2 Fraction LDL 3 Fraction LDL 4 Fraction LDL 5 Fraction Aldolase C. trachomatis (GIOVANNI) N. gonorrhoeae (GIOVANNI) Current Medications Generic Name Dose Route Start Last Admin Trade Name Freq PRN Reason Stop Dose Admin Chlorhexidine Gluconate 1 applic 11/01/17 22:00 11/04/17 22:06 Hibiclens For Decolonization - TP 1 applic HS ODILIA Administration Heparin Sodium (Porcine) 5,000 unit 11/01/17 06:00 11/05/17 15:58 Heparin - SQ 5,000 unit TID ODILIA Administration Levofloxacin 500 mg in 100 mls @ 100 mls/hr 11/03/17 10:00 11/05/17 11:07 Levaquin 500 Mg Premixed Ivpb - IVPB 100 mls/hr Q48H ODILIA Administration Protocol Sodium Chloride 250 mls @ 3,000 mls/hr 11/04/17 15:22 Normal Saline - IV 11/05/17 15:22 PRN PRN Hypotension during Dialysis Potassium Chloride/Dextrose/Sod Cl 20 meq in 1,000 mls @ 125 mls/hr 11/05/17 09:45 11/05/17 09:59 D5-1/2ns+20 Meq Kcl - IV 125 mls/hr ASDIR ODILIA Administration Mupirocin 1 applic 11/01/17 22:00 11/05/17 10:57 Bactroban Ointment (For Decolonization) - NS 11/06/17 21:59 1 applic BID ODILIA Administration ASSESSMENT AND PLAN: This is a 32 year old man with no significant history who presented to the ED with change of mental status. 1. Severe sepsis secondary to Legionella pneumonia - Continue Levaquin - Sputum Legionella culture pending 2. Acute metabolic encephalopathy secondary to severe sepsis 3. Acute kidney injury - Continue HD as per nephrology 4. Rhabdomyolysis - Improving 5. Hepatic transaminitis secondary to sepsis 6. Hyponatremia - Improved 7. Hypokalemia - Continue to replete potassium 8. Demand ischemia secondary to sepsis 9. Anemia - Likely secondary to sepsis and IV fluid - Hemoglobin stable 10. Thrombocytopenia - Improved The care of this patient involved high complexity decision making to prevent further life threatening deterioration of the patient's condition and/or to evaluate & treat vital organ system(s) failure or risk of failure.
[2017-11-05] MEDS: CHLORHEXIDINE GLUCONATE 4% CLEANSER FOR DECOLONIZATION TP SCH (21:44)
[2017-11-05 22:07] LABS: ANION GAP 9 (8-16); BLOOD UREA NITROGEN 41 mg/dL (7-18); CALCIUM 7.7 mg/dL (8.5-10.1); CHLORIDE 100 mmol/L (98-107); CO2 34 mmol/L (21-32); CREATININE 7.4 mg/dL (0.7-1.3); GLUCOSE,RANDOM 103 mg/dL (74-106); POTASSIUM 3.9 mmol/L (3.5-5.1); SODIUM 143 mmol/L (136-145)
[2017-11-06 05:57] LABS: HEMATOCRIT 28.1 % (35.4-49); HEMOGLOBIN 9.7 GM/dL (11.7-16.9); MCH 30.5 pg (25.7-33.7); MCHC 34.5 g/dl (32.0-35.9); MEAN CELL VOLUME 88.4 fl (80-96); MEAN PLT VOLUME 7.9 fl (7.5-11.1); PLATELET COUNT 272 K/MM3 (134-434); RBC 3.18 M/mm3 (4.00-5.60); RDW 13.6 % (11.9-15.9); WHITE BLOOD COUNT 8.6 K/mm3 (4.0-10.0)
[2017-11-06 06:38] LABS: ALBUMIN 1.7 g/dl (3.4-5.0); ANION GAP 7 (8-16); BLOOD UREA NITROGEN 46 mg/dL (7-18); CALCIUM 7.4 mg/dL (8.5-10.1); CHLORIDE 99 mmol/L (98-107); CO2 35 mmol/L (21-32); GLUCOSE,RANDOM 104 mg/dL (74-106); POTASSIUM 3.8 mmol/L (3.5-5.1); SGOT/AST 307 U/L (15-37); SGPT/ALT 206 U/L (12-78); SODIUM 141 mmol/L (136-145)
[2017-11-06 06:40] LABS: ALK PHOS 115 U/L (45-117); BILIRUBIN,TOTAL 0.7 mg/dL (0.2-1.0); TOT PROT 5.1 g/dl (6.4-8.2)
[2017-11-06] MEDS: HEPARIN NA (PORCINE) 5,000 UNITS/ML 1ML VIAL SQ SCH ×3 (06:48→21:58)
[2017-11-06] MEDS: D5-1/2NS+20 MEQ KCL - 20 MEQ/1,000 ML INFUS.BAG IV SCH ×3 (06:49→19:30)
--- NOTE | 2017-11-06 08:00 | PN ---
Progress Note (short form) - Note Progress Note: no fevers overnight alert Vital Signs Period Temp Pulse Resp BP Sys/Dangelo Pulse Ox Last 24 Hr 97.8 F-99.5 F 71-107 18-24 97-162/62-94 98-98 cor-rrr lungs decreased bs at bases abd soft,nt ext no edema hernandez right ij shiley CBC, BMP 11/06/17 05:30 11/06/17 05:30 Microbiology 10/31/17 18:00 Blood - Peripheral Venous Blood Culture - Final NO GROWTH AFTER 5 DAYS INCUBATION 10/31/17 18:05 Blood - Peripheral Venous Blood Culture - Final NO GROWTH AFTER 5 DAYS INCUBATION 11/03/17 15:20 Blood - Shiley Catheter Blood Culture - Preliminary NO GROWTH OBTAINED AFTER 48 HOURS, INCUBATION TO CONTINUE FOR 3 DAYS. 11/03/17 15:20 Blood - Peripheral Venous Blood Culture - Preliminary NO GROWTH OBTAINED AFTER 48 HOURS, INCUBATION TO CONTINUE FOR 3 DAYS. 11/04/17 10:20 Transtracheal Aspiration Legionella Culture - Preliminary 11/02/17 05:30 Serum Legionella Serology - Final 10/31/17 23:30 Cerebral Spinal Fluid - Lumbar Puncture Gram Stain - Final 10/31/17 23:30 Cerebral Spinal Fluid - Lumbar Puncture CSF Culture - Final 10/31/17 18:30 Urine - Urine - Catheterized Urine Culture - Final NO GROWTH OBTAINED 11/01/17 09:00 Urine - Urine Hernandez Legionella Antigen - Final 11/01/17 09:00 Urine - Urine Hernandez Streptococcus pneumoniae Antigen (M - Final a/p legionella pneumonia acute renal failure-minimal urine output rhabdomyolysis active toxic-metabolic encephalopathy-about the same continue levaquin 500 q48h sputum for legionella sent will follow with you Problem List - Problems (1) Pneumonia Code(s): J18.9 - PNEUMONIA, UNSPECIFIED ORGANISM (2) Acute kidney failure Code(s): N17.9 - ACUTE KIDNEY FAILURE, UNSPECIFIED Qualifiers: Acute renal failure type: unspecified Qualified Code(s): N17.9 - Acute kidney failure, unspecified (3) Altered mental status Code(s): R41.82 - ALTERED MENTAL STATUS, UNSPECIFIED Qualifiers: Altered mental status type: disorientation Qualified Code(s): R41.0 - Disorientation, unspecified (4) Elevated LFTs Code(s): R94.5 - ABNORMAL RESULTS OF LIVER FUNCTION STUDIES
[2017-11-06 08:32] LABS: CREATININE 8.1 mg/dL (0.7-1.3)
--- NOTE | 2017-11-06 08:43 | PN ---
Progress Note (short form) - Note Progress Note: PULM/CCM Pt seen and examined in the ICU. Awake but lethargic. No complaints OBJECTIVE: Vital Signs Period Temp Pulse Resp BP Sys/Dangelo Pulse Ox Last 24 Hr 97.8 F-98.7 F 71-102 18-24 97-171/62-94 98-98 Intake & Output 11/03/17 11/04/17 11/05/17 11/06/17 23:59 23:59 23:59 23:59 Intake Total 2600 3865 2885 2510 Output Total 360 235 300 300 Balance 2240 3630 2585 2210 Weight 103.419 kg Gen: Awake but lethargic Heart: RRR Lung: bilateral scattered rhonchi Abd: soft, nontender Ext: no edema CBC, BMP 11/06/17 05:30 11/06/17 05:30 Active Medications Chlorhexidine Gluconate (Hibiclens For Decolonization -) 1 applic TP HS [facility] Last Admin: 11/05/17 21:44 Dose: 1 applic Heparin Sodium (Porcine) (Heparin -) 5,000 unit SQ TID [facility] Last Admin: 11/06/17 14:44 Dose: 5,000 unit Levofloxacin (Levaquin 500 Mg Premixed Ivpb -) 500 mg in 100 mls @ 100 mls/hr IVPB Q48H [facility]; Protocol Last Admin: 11/05/17 11:07 Dose: 100 mls/hr Potassium Chloride/Dextrose/Sod Cl (D5-1/2ns+20 Meq Kcl -) 20 meq in 1,000 mls @ 125 mls/hr IV ASDIR [facility] Last Admin: 11/06/17 10:03 Dose: 125 mls/hr Mupirocin (Bactroban Ointment (For Decolonization) -) 1 applic NS BID [facility] Stop: 11/06/17 21:59 Last Admin: 11/06/17 09:32 Dose: Not Given Ondansetron HCl (Zofran Injection) 4 mg IVPUSH Q6H PRN PRN Reason: NAUSEA Pantoprazole Sodium (Protonix Iv) 40 mg IVPUSH DAILY [facility] Last Admin: 11/06/17 10:03 Dose: 40 mg ASSESSMENT AND PLAN: Resolving legionella Pneumonia S/p severe Sepsis Acute Kidney Injury requiring HD Metabolic Acidosis Resolving AMS Thrombocytopenia Hyponatremia Elevated LFTs +Troponins likely Demand Ischemia Resolving Rhabdomyolysis - antibiotics per ID - HD Today - monitor urine output, creatinine - replete lytes - monitor CPK, CBC - trend LFTs - continue ICU monitoring for now DGL, ACNP-[facility] ICU PULM/[facility] [id number] Critical Care Total Critical Care Time (in minutes): 38 Critical Care Statement: The care of this patient involved high complexity decision making to prevent further life threatening deterioration of the patient 's condition and/or to evaluate & treat vital organ system(s) failure or risk of failure.
[2017-11-06] MEDS: MUPIROCIN 2% TOPICAL OINTMENT FOR DECOLONIZATION NS SCH (09:32)
[2017-11-06] MEDS ORDERED: ONDANSETRON 4 MG/2 ML VIAL IVPUSH PRN (09:48)
[2017-11-06] MEDS: PANTOPRAZOLE SODIUM 40 MG VIAL IVPUSH SCH (10:03)
--- NOTE | 2017-11-06 10:30 | PN ---
Progress Note, Physician Chief Complaint: The patient seen in the ICU. Lathargic. Hemodialysis session in progress. Oliguria persists. 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 Remains oliguric, azotemic, and dialysis dependent. The patient shows no signs of renal recovery yet. - Current Medication List Current Medications: Active Medications Chlorhexidine Gluconate (Hibiclens For Decolonization -) 1 applic TP HS [facility] Last Admin: 11/05/17 21:44 Dose: 1 applic Heparin Sodium (Porcine) (Heparin -) 5,000 unit SQ TID [facility] Last Admin: 11/06/17 06:48 Dose: 5,000 unit Levofloxacin (Levaquin 500 Mg Premixed Ivpb -) 500 mg in 100 mls @ 100 mls/hr IVPB Q48H [facility]; Protocol Last Admin: 11/05/17 11:07 Dose: 100 mls/hr Sodium Chloride (Normal Saline -) 250 mls @ 3,000 mls/hr IV PRN PRN PRN Reason: Hypotension during Dialysis Stop: 11/05/17 15:22 Potassium Chloride/Dextrose/Sod Cl (D5-1/2ns+20 Meq Kcl -) 20 meq in 1,000 mls @ 125 mls/hr IV ASDIR [facility] Last Admin: 11/06/17 10:03 Dose: 125 mls/hr Mupirocin (Bactroban Ointment (For Decolonization) -) 1 applic NS BID [facility] Stop: 11/06/17 21:59 Last Admin: 11/06/17 09:32 Dose: Not Given Ondansetron HCl (Zofran Injection) 4 mg IVPUSH Q6H PRN PRN Reason: NAUSEA Pantoprazole Sodium (Protonix Iv) 40 mg IVPUSH DAILY [facility] Last Admin: 11/06/17 10:03 Dose: 40 mg - Objective Vital Signs: Vital Signs Temperature 98.4 F 11/06/17 06:00 Pulse Rate 94 H 11/06/17 10:00 Respiratory Rate 23 11/06/17 10:00 Blood Pressure 134/88 11/06/17 10:00 O2 Sat by Pulse Oximetry (%) 98 11/06/17 07:57 Constitutional: Yes: Well Nourished Eyes: Yes: Conjunctiva Clear HENT: Yes: Normocephalic Neck: Yes: Trachea Midline Cardiovascular: Yes: Regular Rate and Rhythm, S1, S2 Respiratory: Yes: CTA Bilaterally, Diminished Gastrointestinal: Yes: Normal Bowel Sounds, Soft, Abdomen, Obese Genitourinary: Yes: Sunshine Present, Oliguria. No: Bladder Distention, CVA Tenderness - Left, CVA Tenderness - Right Musculoskeletal: Yes: Back Pain, Joint Stiffness Neurological: Yes: Lethargy, Weakness Labs: CBC, BMP 11/06/17 05:30 11/06/17 05:30 INR, PTT INR 1.36 (0.83-1.09) H 11/02/17 05:30 Problem List - Problems (1) Legionella pneumonia Code(s): A48.1 - LEGIONNAIRES' DISEASE (2) Acute kidney failure Code(s): N17.9 - ACUTE KIDNEY FAILURE, UNSPECIFIED Qualifiers: Acute renal failure type: unspecified Qualified Code(s): N17.9 - Acute kidney failure, unspecified (3) Altered mental status Code(s): R41.82 - ALTERED MENTAL STATUS, UNSPECIFIED Qualifiers: Altered mental status type: disorientation Qualified Code(s): R41.0 - Disorientation, unspecified (4) Elevated LFTs Code(s): R94.5 - ABNORMAL RESULTS OF LIVER FUNCTION STUDIES (5) Fever Code(s): R50.9 - FEVER, UNSPECIFIED Qualifiers: Fever type: unspecified Qualified Code(s): R50.9 - Fever, unspecified (6) Pneumonia Code(s): J18.9 - PNEUMONIA, UNSPECIFIED ORGANISM Assessment/Plan 32 y/o male with: Acute Renal Injury secondary to 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 No signs of renal recovery. Tendency for Metabolic alkalosis. Off IV bicarb. Reviewed the management with the ICU team. Will continue the dialysis Will continue to monitor the renal and biochemical parameters, including calcium , Potassium, urine output etc. Using 3.0 K bath. Thank you. Tiara Ribera MD
--- NOTE | 2017-11-06 10:49 | PN ---
Teaching Attending Note Name of Resident: [place] ATTENDING PHYSICIAN STATEMENT I saw and evaluated the patient. I reviewed the resident's note and discussed the case with the resident. I agree with the resident's findings and plan as documented. SUBJECTIVE: Patient opening eyes spontaneously. He says he is at [facility] and the year is 2019. He complains of nausea. OBJECTIVE: Vital Signs Period Temp Pulse Resp BP Sys/Dangelo Pulse Ox Last 24 Hr 97.8 F-99.5 F 71-107 18-24 97-171/62-94 98-98 HEART: S1S2, RRR LUNGS: Few rhonchi ABDOMEN: Soft, mild distention, non-tender, normal BS EXTREMITIES: No edema Laboratory Results - last 24 hr 11/05/17 11/06/17 11/06/17 21:20 05:30 05:30 WBC 8.6 RBC 3.18 L Hgb 9.7 L Hct 28.1 L MCV 88.4 MCH 30.5 MCHC 34.5 RDW 13.6 Plt Count 272 D MPV 7.9 Sodium 143 141 Potassium 3.9 D 3.8 Chloride 100 99 Carbon Dioxide 34 H 35 H Anion Gap 9 7 L BUN 41 H D 46 H Creatinine 7.4 H 8.1 H* Creat Clearance w eGFR 8.65 7.80 Random Glucose 103 104 Calcium 7.7 L 7.4 L Phosphorus 4.0 D Magnesium 2.0 Total Bilirubin 0.7 AST 307 H ALT 206 H Alkaline Phosphatase 115 Total Protein 5.1 L Albumin 1.7 L Current Medications Generic Name Dose Route Start Last Admin Trade Name Freq PRN Reason Stop Dose Admin Chlorhexidine Gluconate 1 applic 11/01/17 22:00 11/05/17 21:44 Hibiclens For Decolonization - TP 1 applic HS [facility] Administration Heparin Sodium (Porcine) 5,000 unit 11/01/17 06:00 11/06/17 06:48 Heparin - SQ 5,000 unit TID [facility] Administration Levofloxacin 500 mg in 100 mls @ 100 mls/hr 11/03/17 10:00 11/05/17 11:07 Levaquin 500 Mg Premixed Ivpb - IVPB 100 mls/hr Q48H [facility] Administration Protocol Sodium Chloride 250 mls @ 3,000 mls/hr 11/04/17 15:22 Normal Saline - IV 11/05/17 15:22 PRN PRN Hypotension during Dialysis Potassium Chloride/Dextrose/Sod Cl 20 meq in 1,000 mls @ 125 mls/hr 11/05/17 09:45 11/06/17 10:03 D5-1/2ns+20 Meq Kcl - IV 125 mls/hr ASDIR [facility] Administration Mupirocin 1 applic 11/01/17 22:00 11/06/17 09:32 Bactroban Ointment (For Decolonization) - NS 11/06/17 21:59 Not Given BID [facility] Ondansetron HCl 4 mg 11/06/17 09:48 Zofran Injection IVPUSH Q6H PRN NAUSEA Pantoprazole Sodium 40 mg 11/06/17 10:00 11/06/17 10:03 Protonix Iv IVPUSH 40 mg DAILY [facility] Administration ASSESSMENT AND PLAN: This is a 32 year old man with no significant history who presented to the ED with change of mental status. 1. Severe sepsis secondary to Legionella pneumonia - Continue Levaquin - Sputum Legionella culture pending 2. Nausea, vomiting with abdominal distention - Zofran as needed - Continue IV fluid - Start Protonix - Abdominal x-ray 3. Acute metabolic encephalopathy secondary to severe sepsis - Possible mild improvement 4. Acute kidney injury - Continue HD as per nephrology 5. Rhabdomyolysis - Improving 6. Hepatic transaminitis secondary to sepsis - Improving 7. Hyponatremia - Improved 8. Hypokalemia - Improved 9. Demand ischemia secondary to sepsis 10. Anemia - Likely secondary to sepsis and IV fluid - Continue to monitor 11. Thrombocytopenia - Improved The care of this patient involved high complexity decision making to prevent further life threatening deterioration of the patient's condition and/or to evaluate & treat vital organ system(s) failure or risk of failure.
--- NOTE | 2017-11-06 14:41 | PN ---
Physical Exam: SUBJECTIVE: Patient seen and examined at bedside. patient more alert today, but remains drowsy. during examination, patient had episode NBNB vomit. OBJECTIVE: Vital Signs Temperature 98.4 F 11/06/17 08:00 Pulse Rate 72 11/06/17 13:00 Respiratory Rate 18 11/06/17 13:00 Blood Pressure 129/71 11/06/17 13:00 O2 Sat by Pulse Oximetry (%) 98 11/06/17 07:57 GENERAL: The patient is awake, arousable to voice, and oriented, in no acute distress. NECK: Trachea midline, full range of motion, supple. LUNGS: Breath sounds equal, clear to auscultation bilaterally, no wheezes, no crackles, no accessory muscle use. HEART: Regular rate and rhythm, S1, S2 without murmur, rub or gallop. ABDOMEN: Soft, nontender, nondistended, normoactive bowel sounds, no guarding, no rebound, no hepatosplenomegaly, no masses. EXTREMITIES: 2+ pulses, warm, well-perfused, no edema. NEUROLOGICAL: Cranial nerves II through X grossly intact. mildly slurred speech , gait not observed. SKIN: Warm, dry, normal turgor, no rashes or lesions noted CBC,CMP WBC 8.6 K/mm3 (4.0-10.0) 11/06/17 05:30 RBC 3.18 M/mm3 (4.00-5.60) L 11/06/17 05:30 Hgb 9.7 GM/dL (11.7-16.9) L 11/06/17 05:30 Hct 28.1 % (35.4-49) L 11/06/17 05:30 MCV 88.4 fl (80-96) 11/06/17 05:30 MCH 30.5 pg (25.7-33.7) 11/06/17 05:30 MCHC 34.5 g/dl (32.0-35.9) 11/06/17 05:30 RDW 13.6 % (11.9-15.9) 11/06/17 05:30 Plt Count 272 K/MM3 (134-434) D 11/06/17 05:30 MPV 7.9 fl (7.5-11.1) 11/06/17 05:30 Absolute Neuts (auto) 4.6 # 11/02/17 05:30 Total Counted 100 11/01/17 07:50 Neutrophils % 76.0 % (42.8-82.8) 11/02/17 05:30 Neutrophils % (Manual) 45.0 % (42.8-82.8) 11/01/17 07:50 Band Neutrophils % 31.0 % 11/01/17 07:50 Lymphocytes % 14.2 % (8-40) D 11/02/17 05:30 Lymphocytes % (Manual) 11.0 % (8-40) 11/01/17 07:50 Monocytes % 9.3 % (3.8-10.2) 11/02/17 05:30 Monocytes % (Manual) 8 % (3.8-10.2) 11/01/17 07:50 Eosinophils % 0.1 % (0-4.5) D 11/02/17 05:30 Basophils % 0.4 % (0-2.0) D 11/02/17 05:30 Nucleated RBC % 0 % (0-0) 11/02/17 05:30 Metamyelocytes 5 % (0-2) H 11/01/17 07:50 Platelet Estimate Slt decrease 11/01/17 07:50 Schistocytes Rare 11/01/17 07:50 ESR 72 mm/hr (0-10) H 11/03/17 05:30 Retic Count 0.52 % (0.5-1.5) 11/01/17 07:50 Haptoglobin 266 mg/dL (34-200) H 11/01/17 03:27 Sodium 141 mmol/L (136-145) 11/06/17 05:30 Potassium 3.8 mmol/L (3.5-5.1) 11/06/17 05:30 Chloride 99 mmol/L (98-107) 11/06/17 05:30 Carbon Dioxide 35 mmol/L (21-32) H 11/06/17 05:30 Anion Gap 7 (8-16) L 11/06/17 05:30 BUN 46 mg/dL (7-18) H 11/06/17 05:30 Creatinine 8.1 mg/dL (0.7-1.3) H* 11/06/17 05:30 Creat Clearance w eGFR 7.80 (>60) 11/06/17 05:30 Random Glucose 104 mg/dL (74-106) 11/06/17 05:30 Serum Osmolality 296 mosm/kg (278-305) 11/01/17 10:31 Lactic Acid 0.9 mmol/L (0.0-2.0) 10/31/17 21:21 Calcium 7.4 mg/dL (8.5-10.1) L 11/06/17 05:30 Phosphorus 4.0 mg/dL (2.5-4.9) D 11/06/17 05:30 Magnesium 2.0 mg/dL (1.8-2.4) 11/06/17 05:30 Total Bilirubin 0.7 mg/dL (0.2-1.0) 11/06/17 05:30 Direct Bilirubin 1.4 mg/dL (0.0-0.2) H 11/01/17 07:50 GGT 57 U/L (5-85) 10/31/17 18:00 AST 307 U/L (15-37) H 11/06/17 05:30 ALT 206 U/L (12-78) H 11/06/17 05:30 Alkaline Phosphatase 115 U/L (45-117) 11/06/17 05:30 Ammonia 32.89 umol/L (11-32) H 10/31/17 21:21 LD Total 1580 IU/L (121-224) H 11/02/17 05:30 Creatine Kinase 00855 IU/L (39-308) H 11/05/17 05:30 Creatine Kinase Index 0.0 % (0.0-5.0) 11/05/17 05:30 CK-MB (CK-2) 1.46 ng/mL (0.5-3.6) 11/05/17 05:30 Myoglobin > 02335 ng/mL (28-72) H 11/03/17 05:30 Troponin I 0.21 ng/ml (0.00-0.05) H 11/04/17 05:30 Total Protein 5.1 g/dl (6.4-8.2) L 11/06/17 05:30 Total Protein (PEP) 5.4 g/dL (6.0-8.5) L 11/01/17 07:50 Albumin 1.7 g/dl (3.4-5.0) L 11/06/17 05:30 Albumin (PEP) 2.3 gm/dl (2.9-4.4) L 11/01/17 07:50 Globulin 3.1 g/dL (2.2-3.9) 11/01/17 07:50 Albumin/Globulin Ratio 0.7 (0.7-1.7) 11/01/17 07:50 Beta Globulins 1.1 gm/dL (0.7-1.3) 11/01/17 07:50 LDL 1 Fraction 9.0 IU/L (17-32) L 11/02/17 05:30 LDL 2 Fraction 14.0 IU/L (25-40) L 11/02/17 05:30 LDL 3 Fraction 13.0 IU/L (17-27) L 11/02/17 05:30 LDL 4 Fraction 9.0 IU/L (5-13) 11/02/17 05:30 LDL 5 Fraction 55.0 IU/L (4-20) H 11/02/17 05:30 Aldolase 72.0 U/L (3.3-10.3) H 11/03/17 05:30 Vitamin B12 1558 pg/ml (180-914) H 11/02/17 09:15 Active Medications Generic Name Dose Route Start Last Admin Trade Name Tatyana PRN Reason Stop Dose Admin Chlorhexidine Gluconate 1 applic 11/01/17 22:00 11/05/17 21:44 Hibiclens For Decolonization - TP 1 applic HS [facility] Administration Heparin Sodium (Porcine) 5,000 unit 11/01/17 06:00 11/06/17 06:48 Heparin - SQ 5,000 unit TID [facility] Administration Levofloxacin 500 mg in 100 mls @ 100 mls/hr 11/03/17 10:00 11/05/17 11:07 Levaquin 500 Mg Premixed Ivpb - IVPB 100 mls/hr Q48H [facility] Administration Protocol Sodium Chloride 250 mls @ 3,000 mls/hr 11/04/17 15:22 Normal Saline - IV 11/05/17 15:22 PRN PRN Hypotension during Dialysis Potassium Chloride/Dextrose/Sod Cl 20 meq in 1,000 mls @ 125 mls/hr 11/05/17 09:45 11/06/17 10:03 D5-1/2ns+20 Meq Kcl - IV 125 mls/hr ASDIR [facility] Administration Mupirocin 1 applic 11/01/17 22:00 11/06/17 09:32 Bactroban Ointment (For Decolonization) - NS 11/06/17 21:59 Not Given BID [facility] Ondansetron HCl 4 mg 11/06/17 09:48 Zofran Injection IVPUSH Q6H PRN NAUSEA Pantoprazole Sodium 40 mg 11/06/17 10:00 11/06/17 10:03 Protonix Iv IVPUSH 40 mg DAILY [facility] Administration ASSESSMENT/PLAN: The patient is a 32 yo M w/ no PMH Admitted to the ICU for legionella PNA, rhabdo and SALBADOR. #nausea/vomiting/constipation -possible ileus -KUB -zofran 4mg IV Q6h -protonix 40mg IV daily #Pneumonia possibly 2/2 to Legionella -Per ID: cont Levofloxacin 500 mg Q48H -legionella urine positive, serology negative, f/u sputum cx #Toxic Metabolic Encephalopathy -improving, a&o x3 today -CSF WNL -bcx, ucx negative #Acute Renal Failure likely 2/2 Rhabdo -cr. 8.7 today -HD today, cont to monitor Cr -f/u renal recs #Acute Rhabdomyolysis; eitology unclear -ck trending down; -cont to trend CK -HD per nephro for renal support #Transaminitis -resolving; LFTs trending down #Mild troponinemia -likely demand #Mild thrombocytopenia. Resolved. #DVT Prophylaxis -Heparin 5k units SQ TID #FEN -D5-1/2Ns+20 Meq KCl @ 125 -monitor lytes -dysphagia puree diet, nectar thick liquid per SS eval Disposition -cont to monitor in ICU Visit type - Emergency Visit Emergency Visit: Yes ED Registration Date: 11/01/17 Care time: The patient presented to the Emergency Department on the above date and was hospitalized for further evaluation of their emergent condition. - New Patient This patient is new to me today: No - Critical Care Critical Care patient: No
[2017-11-07] MEDS: CHLORHEXIDINE GLUCONATE 4% CLEANSER FOR DECOLONIZATION TP SCH ×2 (04:45→21:42)
[2017-11-07] MEDS: HEPARIN NA (PORCINE) 5,000 UNITS/ML 1ML VIAL SQ SCH ×3 (05:21→21:41)
[2017-11-07 05:44] LABS: HEMATOCRIT 29.2 % (35.4-49); MCH 30.6 pg (25.7-33.7); MCHC 34.3 g/dl (32.0-35.9); MEAN CELL VOLUME 89.1 fl (80-96); PLATELET COUNT 317 K/MM3 (134-434); RBC 3.27 M/mm3 (4.00-5.60); RDW 13.6 % (11.9-15.9); WHITE BLOOD COUNT 10.9 K/mm3 (4.0-10.0)
[2017-11-07 06:11] LABS: ALBUMIN 1.9 g/dl (3.4-5.0); ALK PHOS 119 U/L (45-117); ANION GAP 7 (8-16); BILIRUBIN,DIRECT 0.4 mg/dL (0.0-0.2); BILIRUBIN,TOTAL 0.7 mg/dL (0.2-1.0); BLOOD UREA NITROGEN 36 mg/dL (7-18); CALCIUM 7.8 mg/dL (8.5-10.1); CHLORIDE 103 mmol/L (98-107); CO2 32 mmol/L (21-32); CREATININE 6.6 mg/dL (0.7-1.3); GLUCOSE,RANDOM 111 mg/dL (74-106); MAGNESIUM 1.9 mg/dL (1.8-2.4); POTASSIUM 4.1 mmol/L (3.5-5.1); SGOT/AST 253 U/L (15-37); SGPT/ALT 186 U/L (12-78); SODIUM 142 mmol/L (136-145); TOT PROT 5.3 g/dl (6.4-8.2)
--- NOTE | 2017-11-07 07:38 | PN ---
Progress Note (short form) - Note Progress Note: PULM/CCM Pt seen and examined in the ICU. S/p HD yesterday. Much more wake and interactive. UOP picking up OBJECTIVE: V/S Period Temp Pulse Resp BP Sys/Dangelo Pulse Ox Last 24 Hr 98.3 F-98.9 F 68-98 17-24 117-171/70-94 97-98 Intake & Output 11/04/17 11/05/17 11/06/17 11/07/17 23:59 23:59 23:59 23:59 Intake Total 3865 2885 3070 1120 Output Total 235 300 350 50 Balance 3630 2585 2720 1070 Weight 103.737 kg Gen: well nourished young man in bed, CA+OX3 HEENT: PERRL, an-icteric, R IJ HD Cath Heart: nml S1 S2, RR, unable to appreciate any G/R/M Lung: diminished in the bases Abd: + BS, S/S N/T N/D X4Q Ext: + Pulses, WWP X4, no edema CBC, BMP 11/07/17 05:15 11/07/17 05:15 Active Medications Chlorhexidine Gluconate (Hibiclens For Decolonization -) 1 applic TP HS [facility] Last Admin: 11/07/17 04:45 Dose: 1 applic Heparin Sodium (Porcine) (Heparin -) 5,000 unit SQ TID [facility] Last Admin: 11/07/17 05:21 Dose: 5,000 unit Levofloxacin (Levaquin 500 Mg Premixed Ivpb -) 500 mg in 100 mls @ 100 mls/hr IVPB Q48H [facility]; Protocol Last Admin: 11/07/17 09:30 Dose: 100 mls/hr Potassium Chloride/Dextrose/Sod Cl (D5-1/2ns+20 Meq Kcl -) 20 meq in 1,000 mls @ 125 mls/hr IV ASDIR [facility] Last Admin: 11/06/17 19:30 Dose: 125 mls/hr Ondansetron HCl (Zofran Injection) 4 mg IVPUSH Q6H PRN PRN Reason: NAUSEA Pantoprazole Sodium (Protonix Iv) 40 mg IVPUSH DAILY [facility] Last Admin: 11/07/17 09:30 Dose: 40 mg ASSESSMENT AND PLAN: Resolving MAJOR legionella Pneumonia S/p severe Sepsis Acute Kidney Injury requiring HD Metabolic Acidosis Resolving AMS Thrombocytopenia Hyponatremia Elevated LFTs +Troponins likely Demand Ischemia Resolving Rhabdomyolysis - antibiotics per ID - HD Tomorrow - monitor urine output, creatinine - replete lytes - monitor CPK, CBC - trend LFTs - Advance diet as tolerated - continue ICU monitoring for now LU[facility] ICU PULM/CCM [id number]
--- NOTE | 2017-11-07 09:05 | PN ---
Progress Note (short form) - Note Progress Note: no fevers overnight much improved opens eyes, speech much more fluent hates the food, wants to go home alert Vital Signs Period Temp Pulse Resp BP Sys/Dangelo Pulse Ox Last 24 Hr 98.3 F-98.9 F 68-98 18-24 117-171/70-94 97-98 cor-rrr lungs decreased bs at bases abd soft,nt ext no edema able to raise arms above his head, moving his legs hernandez right IJ shiley CBC, BMP 11/07/17 05:15 11/07/17 05:15 Microbiology 11/03/17 15:20 Blood - Shiley Catheter Blood Culture - Preliminary NO GROWTH OBTAINED AFTER 72 HOURS, INCUBATION TO CONTINUE FOR 2 DAYS. 11/03/17 15:20 Blood - Peripheral Venous Blood Culture - Preliminary NO GROWTH OBTAINED AFTER 72 HOURS, INCUBATION TO CONTINUE FOR 2 DAYS. 10/31/17 18:00 Blood - Peripheral Venous Blood Culture - Final NO GROWTH AFTER 5 DAYS INCUBATION 10/31/17 18:05 Blood - Peripheral Venous Blood Culture - Final NO GROWTH AFTER 5 DAYS INCUBATION 11/04/17 10:20 Transtracheal Aspiration Legionella Culture - Preliminary 11/02/17 05:30 Serum Legionella Serology - Final 10/31/17 23:30 Cerebral Spinal Fluid - Lumbar Puncture Gram Stain - Final 10/31/17 23:30 Cerebral Spinal Fluid - Lumbar Puncture CSF Culture - Final 10/31/17 18:30 Urine - Urine - Catheterized Urine Culture - Final NO GROWTH OBTAINED 11/01/17 09:00 Urine - Urine Hernandez Legionella Antigen - Final 11/01/17 09:00 Urine - Urine Hernandez Streptococcus pneumoniae Antigen (M - Final Current Medications Chlorhexidine Gluconate (Hibiclens For Decolonization -) 1 applic TP HS [facility] Last Admin: 11/07/17 04:45 Dose: 1 applic Heparin Sodium (Porcine) (Heparin -) 5,000 unit SQ TID [facility] Last Admin: 11/07/17 05:21 Dose: 5,000 unit Levofloxacin (Levaquin 500 Mg Premixed Ivpb -) 500 mg in 100 mls @ 100 mls/hr IVPB Q48H [facility]; Protocol Last Admin: 11/05/17 11:07 Dose: 100 mls/hr Potassium Chloride/Dextrose/Sod Cl (D5-1/2ns+20 Meq Kcl -) 20 meq in 1,000 mls @ 125 mls/hr IV ASDIR [facility] Last Admin: 11/06/17 19:30 Dose: 125 mls/hr Ondansetron HCl (Zofran Injection) 4 mg IVPUSH Q6H PRN PRN Reason: NAUSEA Pantoprazole Sodium (Protonix Iv) 40 mg IVPUSH DAILY [facility] Last Admin: 11/06/17 10:03 Dose: 40 mg a/p legionella pneumonia-day #6 antibiotics acute renal failure-minimal urine output rhabdomyolysis active toxic-metabolic encephalopathy-about the same continue levaquin 500 q48h sputum for legionella sent clinically improved mental status improved starting to have increased urine output Problem List - Problems (1) Pneumonia Code(s): J18.9 - PNEUMONIA, UNSPECIFIED ORGANISM (2) Acute kidney failure Code(s): N17.9 - ACUTE KIDNEY FAILURE, UNSPECIFIED Qualifiers: Acute renal failure type: unspecified Qualified Code(s): N17.9 - Acute kidney failure, unspecified (3) Altered mental status Code(s): R41.82 - ALTERED MENTAL STATUS, UNSPECIFIED Qualifiers: Altered mental status type: disorientation Qualified Code(s): R41.0 - Disorientation, unspecified (4) Elevated LFTs Code(s): R94.5 - ABNORMAL RESULTS OF LIVER FUNCTION STUDIES
[2017-11-07] MEDS: PANTOPRAZOLE SODIUM 40 MG VIAL IVPUSH SCH (09:30)
--- NOTE | 2017-11-07 09:54 | PN ---
Progress Note, Physician Chief Complaint: The patient seen in the ICU. Much more alert than before. Afebrile. 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 Vital signs stable. Antibiotics well tolerated. 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 Had uneventful HD yesterday. - Current Medication List Current Medications: Active Medications Chlorhexidine Gluconate (Hibiclens For Decolonization -) 1 applic TP HS [facility] Last Admin: 11/07/17 04:45 Dose: 1 applic Heparin Sodium (Porcine) (Heparin -) 5,000 unit SQ TID [facility] Last Admin: 11/07/17 05:21 Dose: 5,000 unit Levofloxacin (Levaquin 500 Mg Premixed Ivpb -) 500 mg in 100 mls @ 100 mls/hr IVPB Q48H [facility]; Protocol Last Admin: 11/07/17 09:30 Dose: 100 mls/hr Potassium Chloride/Dextrose/Sod Cl (D5-1/2ns+20 Meq Kcl -) 20 meq in 1,000 mls @ 125 mls/hr IV ASDIR [facility] Last Admin: 11/06/17 19:30 Dose: 125 mls/hr Ondansetron HCl (Zofran Injection) 4 mg IVPUSH Q6H PRN PRN Reason: NAUSEA Pantoprazole Sodium (Protonix Iv) 40 mg IVPUSH DAILY [facility] Last Admin: 11/07/17 09:30 Dose: 40 mg - Objective Vital Signs: Vital Signs Temperature 98.3 F 11/07/17 06:00 Pulse Rate 87 11/07/17 09:00 Respiratory Rate 17 11/07/17 09:00 Blood Pressure 155/86 11/07/17 09:00 O2 Sat by Pulse Oximetry (%) 97 11/07/17 07:53 Constitutional: Yes: Anxious Eyes: Yes: Conjunctiva Clear HENT: Yes: Normocephalic Neck: Yes: Trachea Midline Cardiovascular: Yes: Regular Rate and Rhythm, S1, S2 Respiratory: Yes: CTA Bilaterally, Poor Air Entry Gastrointestinal: Yes: Normal Bowel Sounds, Abdomen, Obese Genitourinary: Yes: Sunshine Present. No: CVA Tenderness - Left, CVA Tenderness - Right, Hematuria Edema: No Neurological: Yes: Alert, Oriented Labs: CBC, BMP 11/07/17 05:15 11/07/17 05:15 INR, PTT INR 1.36 (0.83-1.09) H 11/02/17 05:30 Problem List - Problems (1) Legionella pneumonia Code(s): A48.1 - LEGIONNAIRES' DISEASE (2) Acute kidney failure Code(s): N17.9 - ACUTE KIDNEY FAILURE, UNSPECIFIED Qualifiers: Qualified Code(s): N17.9 - Acute kidney failure, unspecified (3) Altered mental status Code(s): R41.82 - ALTERED MENTAL STATUS, UNSPECIFIED Qualifiers: Qualified Code(s): R41.0 - Disorientation, unspecified (4) Elevated LFTs Code(s): R94.5 - ABNORMAL RESULTS OF LIVER FUNCTION STUDIES (5) Fever Code(s): R50.9 - FEVER, UNSPECIFIED Qualifiers: Qualified Code(s): R50.9 - Fever, unspecified (6) Pneumonia Code(s): J18.9 - PNEUMONIA, UNSPECIFIED ORGANISM Assessment/Plan 32 y/o male with: Acute Renal Injury secondary to 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 No signs of renal recovery. 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 Will watch. Reviewed the management with the ICU team. Will continue the dialysis for now. Next HD scheduled for tomorrow. Will continue to monitor the renal and biochemical parameters, including calcium , Potassium, urine output etc. Thank you. Tiara Ribera MD
[2017-11-07] MEDS: D5-1/2NS+20 MEQ KCL - 20 MEQ/1,000 ML INFUS.BAG IV SCH (15:44)
--- NOTE | 2017-11-07 18:06 | PN ---
Physical Exam: SUBJECTIVE: Patient seen and examined. He is more alert and conversing more today. He has been eating. He denies pain, nausea. OBJECTIVE: Vital Signs Period Temp Pulse Resp BP Sys/Dangelo Pulse Ox Last 24 Hr 98.3 F-98.9 F 60-88 16-24 139-157/79-89 97-98 GENERAL: The patient is awake, lethargic, in no acute distress. LUNGS: Breath sounds equal, clear to auscultation bilaterally, no wheezes, no crackles, no accessory muscle use. HEART: Regular rate and rhythm, S1, S2 without murmur, rub or gallop. ABDOMEN: Soft, nontender, nondistended, normoactive bowel sounds, no guarding, no rebound, no hepatosplenomegaly, no masses. EXTREMITIES: 2+ pulses, warm, well-perfused, no edema. Laboratory Results - last 24 hr 11/07/17 11/07/17 05:15 05:15 WBC 10.9 H RBC 3.27 L Hgb 10.0 L Hct 29.2 L MCV 89.1 MCH 30.6 MCHC 34.3 RDW 13.6 Plt Count 317 MPV 8.0 Sodium 142 Potassium 4.1 Chloride 103 Carbon Dioxide 32 Anion Gap 7 L BUN 36 H Creatinine 6.6 H Creat Clearance w eGFR 9.87 Random Glucose 111 H Calcium 7.8 L Phosphorus 4.0 Magnesium 1.9 Total Bilirubin 0.7 Direct Bilirubin 0.4 H D AST 253 H ALT 186 H Alkaline Phosphatase 119 H Total Protein 5.3 L Albumin 1.9 L Active Medications Generic Name Dose Route Start Last Admin Trade Name Tatyana PRN Reason Stop Dose Admin Chlorhexidine Gluconate 1 applic 11/01/17 22:00 11/07/17 04:45 Hibiclens For Decolonization - TP 1 applic HS [facility] Administration Heparin Sodium (Porcine) 5,000 unit 11/01/17 06:00 11/07/17 14:17 Heparin - SQ 5,000 unit TID [facility] Administration Levofloxacin 500 mg in 100 mls @ 100 mls/hr 11/03/17 10:00 11/07/17 09:30 Levaquin 500 Mg Premixed Ivpb - IVPB 100 mls/hr Q48H [facility] Administration Protocol Potassium Chloride/Dextrose/Sod Cl 20 meq in 1,000 mls @ 125 mls/hr 11/05/17 09:45 11/07/17 15:44 D5-1/2ns+20 Meq Kcl - IV 125 mls/hr ASDIR [facility] Administration Ondansetron HCl 4 mg 11/06/17 09:48 11/07/17 10:00 Zofran Injection IVPUSH 4 mg Q6H PRN Administration NAUSEA Pantoprazole Sodium 40 mg 11/06/17 10:00 11/07/17 09:30 Protonix Iv IVPUSH 40 mg DAILY [facility] Administration ASSESSMENT/PLAN: This is a 32 year old man with no significant history who presented to the ED with change of mental status. 1. Severe sepsis secondary to Legionella pneumonia - Continue Levaquin - Sputum Legionella culture pending 2. Nausea, vomiting with abdominal distention - Improving - Zofran as needed - Continue IV fluid - Start Protonix - Abdominal x-ray showed large bowel ileus 3. Acute metabolic encephalopathy secondary to severe sepsis - Slowly improving 4. Acute kidney injury - Continue HD as per nephrology 5. Rhabdomyolysis - Improving 6. Hepatic transaminitis secondary to sepsis - Improving 7. Hyponatremia - Improved 8. Hypokalemia - Improved 9. Demand ischemia secondary to sepsis 10. Anemia - Likely secondary to sepsis and IV fluid - Hemoglobin is stable - Continue to monitor 11. Thrombocytopenia - Improved The care of this patient involved high complexity decision making to prevent further life threatening deterioration of the patient's condition and/or to evaluate & treat vital organ system(s) failure or risk of failure. Visit type - Emergency Visit Emergency Visit: Yes ED Registration Date: 11/01/17 Care time: The patient presented to the Emergency Department on the above date and was hospitalized for further evaluation of their emergent condition. - New Patient This patient is new to me today: No - Critical Care Critical Care patient: Yes Total Critical Care Time (in minutes): 35 Critical Care Statement: The care of this patient involved high complexity decision making to prevent further life threatening deterioration of the patient 's condition and/or to evaluate & treat vital organ system(s) failure or risk of failure. - Discharge Referral Referred to [facility] Med P.C.: No
[2017-11-08 05:41] LABS: HEMATOCRIT 27.3 % (35.4-49); HEMOGLOBIN 9.2 GM/dL (11.7-16.9); MCH 29.7 pg (25.7-33.7); MCHC 33.6 g/dl (32.0-35.9); MEAN CELL VOLUME 88.3 fl (80-96); MEAN PLT VOLUME 7.3 fl (7.5-11.1); PLATELET COUNT 348 K/MM3 (134-434); RBC 3.09 M/mm3 (4.00-5.60); RDW 13.2 % (11.9-15.9); WHITE BLOOD COUNT 13.3 K/mm3 (4.0-10.0)
[2017-11-08 06:34] LABS: ALBUMIN 1.8 g/dl (3.4-5.0); ANION GAP 8 (8-16); BLOOD UREA NITROGEN 51 mg/dL (7-18); CALCIUM 7.2 mg/dL (8.5-10.1); CHLORIDE 101 mmol/L (98-107); CO2 27 mmol/L (21-32); GLUCOSE,RANDOM 103 mg/dL (74-106); POTASSIUM 4.5 mmol/L (3.5-5.1); SODIUM 136 mmol/L (136-145); URIC ACID 6.3 mg/dL (2.6-7.2)
[2017-11-08 06:50] LABS: ALK PHOS 108 U/L (45-117); BILIRUBIN,TOTAL 0.6 mg/dL (0.2-1.0); SGOT/AST 177 U/L (15-37); SGPT/ALT 152 U/L (12-78); TOT PROT 5.2 g/dl (6.4-8.2)
[2017-11-08 07:18] LABS: CREATININE 8.2 mg/dL (0.7-1.3)
--- NOTE | 2017-11-08 09:05 | PN ---
Physical Exam: SUBJECTIVE: Patient seen and examined at bedside. No acute complaints. Pt is hungry. Denies fever/chills, n/v, abdominal pain. Improved mental status, moving all extremities. Afebrile. OBJECTIVE: Vital Signs Vital Signs 11/08/17 11/08/17 11/08/17 05:00 08:00 09:00 Temperature 98.2 F Pulse Rate 68 83 Respiratory 19 22 22 Rate Blood Pressure 141/83 159/98 O2 Sat by Pulse 99 Oximetry (%) 11/08/17 10:00 Temperature 98.8 F Pulse Rate 80 Respiratory 20 Rate Blood Pressure 157/88 O2 Sat by Pulse Oximetry (%) GENERAL: The patient is awake, arousable to voice, and oriented, in no acute distress. AAOx3. NECK: Trachea midline, full range of motion, supple. LUNGS: Breath sounds equal, clear to auscultation bilaterally, no wheezes, no crackles, no accessory muscle use. HEART: Regular rate and rhythm, S1, S2 without murmur, rub or gallop. ABDOMEN: Soft, nontender, nondistended, normoactive bowel sounds, no guarding, no rebound, no hepatosplenomegaly, no masses. EXTREMITIES: 2+ pulses, warm, well-perfused, no edema. 4/5 muscle strength b/l u /L LE. NEUROLOGICAL: Cranial nerves II through X grossly intact. mildly slurred speech , gait not observed. SKIN: Warm, dry, normal turgor, no rashes or lesions noted Laboratory Results - last 24 hr 11/08/17 11/08/17 05:15 05:15 WBC 13.3 H RBC 3.09 L Hgb 9.2 L Hct 27.3 L MCV 88.3 MCH 29.7 MCHC 33.6 RDW 13.2 Plt Count 348 MPV 7.3 L Sodium 136 Potassium 4.5 Chloride 101 Carbon Dioxide 27 Anion Gap 8 BUN 51 H Creatinine 8.2 H* Creat Clearance w eGFR 7.69 Random Glucose 103 Uric Acid 6.3 Calcium 7.2 L Magnesium 2.0 Total Bilirubin 0.6 AST 177 H D ALT 152 H Alkaline Phosphatase 108 D Creatine Kinase 5188 H Creatine Kinase Index 0.0 CK-MB (CK-2) 2.55 Total Protein 5.2 L Albumin 1.8 L Active Medications Generic Name Dose Route Start Last Admin Trade Name Freq PRN Reason Stop Dose Admin Chlorhexidine Gluconate 1 applic 11/01/17 22:00 11/07/17 21:42 Hibiclens For Decolonization - TP 1 applic HS [facility] Administration Levofloxacin 500 mg in 100 mls @ 100 mls/hr 11/03/17 10:00 11/07/17 09:30 Levaquin 500 Mg Premixed Ivpb - IVPB 100 mls/hr Q48H [facility] Administration Protocol Potassium Chloride/Dextrose/Sod Cl 20 meq in 1,000 mls @ 125 mls/hr 11/05/17 09:45 11/07/17 15:44 D5-1/2ns+20 Meq Kcl - IV 125 mls/hr ASDIR [facility] Administration Ondansetron HCl 4 mg 11/06/17 09:48 11/07/17 10:00 Zofran Injection IVPUSH 4 mg Q6H PRN Administration NAUSEA Pantoprazole Sodium 40 mg 11/06/17 10:00 11/07/17 09:30 Protonix Iv IVPUSH 40 mg DAILY [facility] Administration UA: 2+ protein, 3+ blood with minimal RBC's, 4 WBC's Tox screen: +Marijuana, <4.0 Salicylates IMAGING: Head CT: No evidence of acute intracranial hemmorhage, edema, midline shift, mass effect, or skull fx. No CT evidence of acute territorial infarction. Abd U/S: Borderline hepatosplenomegaly w/ no evidence of acute pathology within the abdomen. Liver is borderline enlarged measuring 17.6 cm in craniocaudad dimension. It is homogenous in teexture. There is an echogenic mass within the L lobe measuring 2.cm. This is consistent w/ a hemangioma. No additional intrahepatic masses are identified. The portal flow is documented within the main portal vein. CT Abd/Pel w/o contrast: 1. Extensive L lower lobe consolidation suspicious for acute pna. There is a lesser degree of consolidation/atelectasis within the R lung base. 2. Limited study w/ no gross evidence of acute pathology within the abdomen or pelvis. Abd xray: Colonic ileus w/ some contrast in R colon and rectosigmoid. Free air not seen. EMG: pending report ASSESSMENT/PLAN: The patient is a 32 yo M w/ no PMH Admitted to the ICU for legionella PNA, rhabdo and SALBADOR. #nausea/vomiting/constipation -Abd xray showed colonic ileus w/ some contrast in R colon and rectosigmoid. -cont Zofran 4mg IV Q6h -cont Protonix 40mg IV daily #Pneumonia possibly 2/2 to Legionella -Per ID: cont Levofloxacin 500 mg Q48H (Day #7 of antibiotics) -legionella urine positive, serology negative, f/u sputum cx #Toxic Metabolic Encephalopathy -improving, AAOx3 today -CSF WNL -bcx, ucx negative #Acute Renal Failure likely 2/2 Rhabdo; currently with hernandez in place. -Cr 8.2 < 8.7 -HD today, cont to monitor Cr -Per nephro: can d/c hernandez, trend urine ouput and d/c IVf; will need tunneled HD catheter placement because pt's renal status has not improved. Pt will need HD in the future, but is expected to recovery in 3-4 weeks. -start Lasix 100 mg IVPB QD #Acute Rhabdomyolysis; eitology unclear -CK trending down; 5188 < -cont to trend CK -HD per nephro for renal support #Transaminitis -resolving; LFTs trending down #Mild troponinemia -likely demand 2/2 sepsis #Mild thrombocytopenia; Resolved. 127 today. #DVT Prophylaxis -Heparin 5k units SQ TID #FEN -no IVf needed at this time -monitor lytes -renal diet Disposition -cont to monitor in ICU Visit type - Emergency Visit Emergency Visit: Yes ED Registration Date: 11/01/17 Care time: The patient presented to the Emergency Department on the above date and was hospitalized for further evaluation of their emergent condition. - New Patient This patient is new to me today: No - Critical Care Critical Care patient: Yes Total Critical Care Time (in minutes): 35 Critical Care Statement: The care of this patient involved high complexity decision making to prevent further life threatening deterioration of the patient 's condition and/or to evaluate & treat vital organ system(s) failure or risk of failure.
--- NOTE | 2017-11-08 09:17 | PN ---
Progress Note (short form) - Note Progress Note: no fevers overnight much improved talking more fluently moving all extremities when can I leave? Vital Signs Period Temp Pulse Resp BP Sys/Dangelo Pulse Ox Last 24 Hr 98.0 F-98.4 F 60-93 16-22 141-159/82-98 94 cor-rrr lungs decreased bs at bases abd soft,nt ext no edema +hernandez CPK 5188 CBC, BMP 11/08/17 05:15 11/08/17 05:15 11/03/17 15:20 Blood - Shiley Catheter Blood Culture - Preliminary NO GROWTH OBTAINED AFTER 96 HOURS, INCUBATION TO CONTINUE FOR 1 DAYS. 11/03/17 15:20 Blood - Peripheral Venous Blood Culture - Preliminary NO GROWTH OBTAINED AFTER 96 HOURS, INCUBATION TO CONTINUE FOR 1 DAYS. 10/31/17 18:00 Blood - Peripheral Venous Blood Culture - Final NO GROWTH AFTER 5 DAYS INCUBATION 10/31/17 18:05 Blood - Peripheral Venous Blood Culture - Final NO GROWTH AFTER 5 DAYS INCUBATION 11/04/17 10:20 Transtracheal Aspiration Legionella Culture - Preliminary 11/02/17 05:30 Serum Legionella Serology - Final 10/31/17 23:30 Cerebral Spinal Fluid - Lumbar Puncture Gram Stain - Final 10/31/17 23:30 Cerebral Spinal Fluid - Lumbar Puncture CSF Culture - Final 10/31/17 18:30 Urine - Urine - Catheterized Urine Culture - Final NO GROWTH OBTAINED 11/01/17 09:00 Urine - Urine Hernandez Legionella Antigen - Final 11/01/17 09:00 Urine - Urine Hernandez Streptococcus pneumoniae Antigen (M - Final Current Medications Chlorhexidine Gluconate (Hibiclens For Decolonization -) 1 applic TP HS [facility] Last Admin: 11/07/17 21:42 Dose: 1 applic Levofloxacin (Levaquin 500 Mg Premixed Ivpb -) 500 mg in 100 mls @ 100 mls/hr IVPB Q48H [facility]; Protocol Last Admin: 11/07/17 09:30 Dose: 100 mls/hr Potassium Chloride/Dextrose/Sod Cl (D5-1/2ns+20 Meq Kcl -) 20 meq in 1,000 mls @ 125 mls/hr IV ASDIR [facility] Last Admin: 11/07/17 15:44 Dose: 125 mls/hr Ondansetron HCl (Zofran Injection) 4 mg IVPUSH Q6H PRN PRN Reason: NAUSEA Last Admin: 11/07/17 10:00 Dose: 4 mg Pantoprazole Sodium (Protonix Iv) 40 mg IVPUSH DAILY [facility] Last Admin: 11/07/17 09:30 Dose: 40 mg a/p legionella pneumonia-day #7 antibiotics acute renal failure- rhabdomyolysis active-improved toxic-metabolic encephalopathy-about the same continue levaquin 500 q48h sputum for legionella sent clinically improved mental status improved starting to have increased urine output Problem List - Problems (1) Pneumonia Code(s): J18.9 - PNEUMONIA, UNSPECIFIED ORGANISM (2) Acute kidney failure Code(s): N17.9 - ACUTE KIDNEY FAILURE, UNSPECIFIED Qualifiers: Acute renal failure type: unspecified Qualified Code(s): N17.9 - Acute kidney failure, unspecified (3) Altered mental status Code(s): R41.82 - ALTERED MENTAL STATUS, UNSPECIFIED Qualifiers: Altered mental status type: disorientation Qualified Code(s): R41.0 - Disorientation, unspecified (4) Elevated LFTs Code(s): R94.5 - ABNORMAL RESULTS OF LIVER FUNCTION STUDIES
[2017-11-08] MEDS: D5-1/2NS+20 MEQ KCL - 20 MEQ/1,000 ML INFUS.BAG IV SCH (10:15)
[2017-11-08] MEDS: PANTOPRAZOLE SODIUM 40 MG VIAL IVPUSH SCH (10:16)
[2017-11-08 10:26] LABS: BASO % 0.3 % (0-2.0); EOS % 1.8 % (0-4.5); HEMATOCRIT 29.1 % (35.4-49); HEMOGLOBIN 9.8 GM/dL (11.7-16.9); LYMPH % 10.3 % (8-40); MCH 29.9 pg (25.7-33.7); MCHC 33.8 g/dl (32.0-35.9); MEAN CELL VOLUME 88.5 fl (80-96); MEAN PLT VOLUME 7.1 fl (7.5-11.1); MONO % 5.2 % (3.8-10.2); NEUT % 82.4 % (42.8-82.8); PLATELET COUNT 347 K/MM3 (134-434); RBC 3.29 M/mm3 (4.00-5.60); RDW 13.2 % (11.9-15.9); WHITE BLOOD COUNT 13.1 K/mm3 (4.0-10.0)
[2017-11-08] MEDS ORDERED: FUROSEMIDE 100 MG/10 ML INJECTABLE VIAL IVPB SCH (11:00)
--- NOTE | 2017-11-08 11:11 | PN ---
Progress Note (short form) - Note Progress Note: Renal Follow up for SALBADOR Pt seen and examined in the ICU awake and alert speech is still slurred on dialysis currently, BP stable, goal UF is 2L remains oliguric no sob, chest pain, abd pain, N/V/D appetite is good Vital Signs Temperature 98.8 F 11/08/17 10:00 Pulse Rate 80 11/08/17 10:00 Respiratory Rate 20 11/08/17 10:00 Blood Pressure 157/88 11/08/17 10:00 O2 Sat by Pulse Oximetry (%) 99 11/08/17 09:00 Intake & Output 11/05/17 11/06/17 11/07/17 11/08/17 23:59 23:59 23:59 23:59 Intake Total 2885 3070 4120 1263 Output Total 300 350 625 400 Balance 2585 2720 3495 863 Weight 103.737 kg NAD awake and alert speech is slurred RRR, No M/R Dec BS at lung bases soft NT/ND Trace LE edema CBC, BMP 11/08/17 10:00 11/08/17 05:15 Current Medications Chlorhexidine Gluconate (Hibiclens For Decolonization -) 1 applic TP HS [facility] Last Admin: 11/07/17 21:42 Dose: 1 applic Furosemide (Lasix Injection -) 100 mg IVPB DAILY [facility] Levofloxacin (Levaquin 500 Mg Premixed Ivpb -) 500 mg in 100 mls @ 100 mls/hr IVPB Q48H [facility]; Protocol Last Admin: 11/07/17 09:30 Dose: 100 mls/hr Ondansetron HCl (Zofran Injection) 4 mg IVPUSH Q6H PRN PRN Reason: NAUSEA Last Admin: 11/07/17 10:00 Dose: 4 mg Pantoprazole Sodium (Protonix Iv) 40 mg IVPUSH DAILY [facility] Last Admin: 11/08/17 10:16 Dose: 40 mg 32 year old gentleman with no significant PMhx presented with AMS/generalized weakness and found to have oliguric renal failure. #Acute Renal Injury secondary to legionella infection + Pigment injury from Rhabdo #AMS #Fever #Metabolic acidosis #Elevated LDH/Hemolysis/Thrombocytopenia tolerating dialysis well today will need tunneled HD catheter placement as pt w/o renal recovery at this time will need HD for the near future but expect recovery in 3-4 weeks d/c IVF Start Lasix 100mg IVPB daily trend urine output can d/c foly continue Abx as per ID CPK downtrendfiorella Edmondson DO
--- NOTE | 2017-11-08 12:09 | PN ---
Teaching Attending Note Name of Resident: Doug Gil ATTENDING PHYSICIAN STATEMENT I saw and evaluated the patient. I reviewed the resident's note and discussed the case with the resident. I agree with the resident's findings and plan as documented. SUBJECTIVE: Patient seen and examined in the ICU. More awake and alert. Reports some generalized weakness and fatigue. No CP or SOB. Noted 400cc of urine output documented. Intake & Output 11/05/17 11/06/17 11/07/17 11/08/17 23:59 23:59 23:59 23:59 Intake Total 2885 3070 4120 1263 Output Total 300 350 625 400 Balance 2585 2720 3495 863 Weight 228 lb 11.2 oz Last Vital Signs Temp Pulse Resp BP Pulse Ox 98.8 F 80 20 157/88 99 11/08/17 10:00 11/08/17 10:00 11/08/17 10:00 11/08/17 10:00 11/08/17 09:00 Active Medications Chlorhexidine Gluconate (Hibiclens For Decolonization -) 1 applic TP HS [facility] Last Admin: 11/07/17 21:42 Dose: 1 applic Furosemide (Lasix Injection -) 100 mg IVPB DAILY [facility] Levofloxacin (Levaquin 500 Mg Premixed Ivpb -) 500 mg in 100 mls @ 100 mls/hr IVPB Q48H [facility]; Protocol Last Admin: 11/07/17 09:30 Dose: 100 mls/hr Ondansetron HCl (Zofran Injection) 4 mg IVPUSH Q6H PRN PRN Reason: NAUSEA Last Admin: 11/07/17 10:00 Dose: 4 mg Pantoprazole Sodium (Protonix Iv) 40 mg IVPUSH DAILY [facility] Last Admin: 11/08/17 10:16 Dose: 40 mg Gen: well nourished young man in bed, Awake and alert HEENT: PERRL, an-icteric, R IJ HD Cath Heart: S1 S2, RR, (-) murmur / rub Lung: diminished in the bases Abd: (+) BS, Soft, NT, ND Ext: (+) Pulses, (-) edema Laboratory Results - last 24 hr 11/08/17 11/08/17 11/08/17 05:15 05:15 10:00 WBC 13.3 H 13.1 H RBC 3.09 L 3.29 L Hgb 9.2 L 9.8 L Hct 27.3 L 29.1 L MCV 88.3 88.5 MCH 29.7 29.9 MCHC 33.6 33.8 RDW 13.2 13.2 Plt Count 348 347 MPV 7.3 L 7.1 L Absolute Neuts (auto) 10.8 Neutrophils % 82.4 Lymphocytes % 10.3 D Monocytes % 5.2 Eosinophils % 1.8 D Basophils % 0.3 Nucleated RBC % 0 Sodium 136 Potassium 4.5 Chloride 101 Carbon Dioxide 27 Anion Gap 8 BUN 51 H Creatinine 8.2 H* Creat Clearance w eGFR 7.69 Random Glucose 103 Uric Acid 6.3 Calcium 7.2 L Magnesium 2.0 Total Bilirubin 0.6 AST 177 H D ALT 152 H Alkaline Phosphatase 108 D Creatine Kinase 5188 H Creatine Kinase Index 0.0 CK-MB (CK-2) 2.55 Total Protein 5.2 L Albumin 1.8 L ASSESSMENT AND PLAN: Resolving Legionella Pneumonia Resolving Severe Sepsis Acute Kidney Injury requiring HD Metabolic Acidosis Resolving AMS Thrombocytopenia Hyponatremia Elevated LFTs +Troponins likely Demand Ischemia Resolving Rhabdomyolysis ABX per ID HD per Renal: will need to make assessment if he will need prolonged HD as the access is 1 week old Monitor urine output, creatinine Replete lytes Advance diet as tolerated Floor VTE prophylaxis Dr Stauffer Critical care time spent in reviewing chart, evaluating patient and formulating plan - 36 minutes.
--- NOTE | 2017-11-08 13:51 | SPA.PREOP ---
- PRE-OP NOTE Dx: Acute Renal Injury secondary to Legionella infection + Pigment injury from Rhabdo Planned Procedure: Permacath Insertion Surgeon: Norberto Vallecillo Consent: To be obtained by surgeon after all risks, benefits and alternatives explained to patient and or health care proxy. Last Vital Signs Temp Pulse Resp BP Pulse Ox 98.8 F 78 18 149/88 99 11/08/17 10:00 11/08/17 13:00 11/08/17 13:00 11/08/17 13:00 11/08/17 09:00 Lab Results WBC 13.1 K/mm3 (4.0-10.0) H 11/08/17 10:00 RBC 3.29 M/mm3 (4.00-5.60) L 11/08/17 10:00 Hgb 9.8 GM/dL (11.7-16.9) L 11/08/17 10:00 Hct 29.1 % (35.4-49) L 11/08/17 10:00 MCV 88.5 fl (80-96) 11/08/17 10:00 MCHC 33.8 g/dl (32.0-35.9) 11/08/17 10:00 RDW 13.2 % (11.9-15.9) 11/08/17 10:00 Plt Count 347 K/MM3 (134-434) 11/08/17 10:00 Sodium 136 mmol/L (136-145) 11/08/17 05:15 Potassium 4.5 mmol/L (3.5-5.1) 11/08/17 05:15 Chloride 101 mmol/L (98-107) 11/08/17 05:15 Carbon Dioxide 27 mmol/L (21-32) 11/08/17 05:15 Anion Gap 8 (8-16) 11/08/17 05:15 BUN 51 mg/dL (7-18) H 11/08/17 05:15 Creatinine 8.2 mg/dL (0.7-1.3) H* 11/08/17 05:15 Random Glucose 103 mg/dL (74-106) 11/08/17 05:15 Calcium 7.2 mg/dL (8.5-10.1) L 11/08/17 05:15 INR 1.36 (0.83-1.09) H 11/02/17 05:30 Problem List - Problems (1) Acute kidney failure Assessment/Plan: 1. NPO after midnight 2. GI/DVT PPX 3. Medical optimization / clearance 4. OR at 2:30PM Code(s): N17.9 - ACUTE KIDNEY FAILURE, UNSPECIFIED Qualifiers: Acute renal failure type: unspecified Qualified Code(s): N17.9 - Acute kidney failure, unspecified (2) Altered mental status Code(s): R41.82 - ALTERED MENTAL STATUS, UNSPECIFIED Qualifiers: Altered mental status type: disorientation Qualified Code(s): R41.0 - Disorientation, unspecified Visit type - Case Type Case Type: ED Admission - Emergency Emergency Visit: Yes ED Registration Date: 11/01/17 Care time: The patient presented to the Emergency Department on the above date and was hospitalized for further evaluation of their emergent condition. - New patient This patient is new to me today: Yes Date on this admission: 11/08/17
--- NOTE | 2017-11-08 14:07 | PN ---
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 Nausea and some emesis reported over the weekend. Dr. David upgraded diet to reg renal diet. Thin liquids. Sleeping. Receiving dialysis. Careful monitoring of PO intake/diet upgrade.MBS last week with stasis with puree and silent aspiration on nectar. Repeat MBS?
--- NOTE | 2017-11-08 15:26 | PN ---
Teaching Attending Note Name of Resident: Nicci oGrdon ATTENDING PHYSICIAN STATEMENT I saw and evaluated the patient. I reviewed the resident's note and discussed the case with the resident. I agree with the resident's findings and plan as documented. SUBJECTIVE: Patient is awake and alert laying in bed on HD. He denies abdominal pain, nausea, vomiting. OBJECTIVE: Vital Signs Period Temp Pulse Resp BP Sys/Dangelo Pulse Ox Last 24 Hr 98.0 F-98.8 F 62-94 16-23 141-164/75-98 94-99 HEART: S1S2, RRR LUNGS: Clear ABDOMEN: Soft, non-distended, non-tender, normal BS EXTREMITIES: No edema Laboratory Results - last 24 hr 11/08/17 11/08/17 11/08/17 05:15 05:15 10:00 WBC 13.3 H 13.1 H RBC 3.09 L 3.29 L Hgb 9.2 L 9.8 L Hct 27.3 L 29.1 L MCV 88.3 88.5 MCH 29.7 29.9 MCHC 33.6 33.8 RDW 13.2 13.2 Plt Count 348 347 MPV 7.3 L 7.1 L Absolute Neuts (auto) 10.8 Neutrophils % 82.4 Lymphocytes % 10.3 D Monocytes % 5.2 Eosinophils % 1.8 D Basophils % 0.3 Nucleated RBC % 0 Sodium 136 Potassium 4.5 Chloride 101 Carbon Dioxide 27 Anion Gap 8 BUN 51 H Creatinine 8.2 H* Creat Clearance w eGFR 7.69 Random Glucose 103 Uric Acid 6.3 Calcium 7.2 L Magnesium 2.0 Total Bilirubin 0.6 AST 177 H D ALT 152 H Alkaline Phosphatase 108 D Creatine Kinase 5188 H Creatine Kinase Index 0.0 CK-MB (CK-2) 2.55 Total Protein 5.2 L Albumin 1.8 L Current Medications Generic Name Dose Route Start Last Admin Trade Name Freq PRN Reason Stop Dose Admin Chlorhexidine Gluconate 1 applic 11/01/17 22:00 11/07/17 21:42 Hibiclens For Decolonization - TP 1 applic HS ODILIA Administration Furosemide 100 mg 11/08/17 11:00 11/08/17 13:24 Lasix Injection - IVPB 100 mg DAILY ODILIA Administration Levofloxacin 500 mg in 100 mls @ 100 mls/hr 11/03/17 10:00 11/07/17 09:30 Levaquin 500 Mg Premixed Ivpb - IVPB 100 mls/hr Q48H ODILIA Administration Protocol Ondansetron HCl 4 mg 11/06/17 09:48 11/07/17 10:00 Zofran Injection IVPUSH 4 mg Q6H PRN Administration NAUSEA Pantoprazole Sodium 40 mg 11/06/17 10:00 11/08/17 10:16 Protonix Iv IVPUSH 40 mg DAILY ODILIA Administration ASSESSMENT AND PLAN: This is a 32 year old man with no significant history who presented to the ED with change of mental status. 1. Severe sepsis secondary to Legionella pneumonia - Continue Levaquin - Sputum Legionella culture pending 2. Large bowel ileus - Clinically improved 3. Acute metabolic encephalopathy secondary to severe sepsis - Slowly improving 4. Acute kidney injury - Continue HD as per nephrology - IV fluid discontinued - Lasix IV started 5. Rhabdomyolysis - Improving 6. Hepatic transaminitis secondary to sepsis - Improving 7. Hyponatremia - Improved 8. Hypokalemia - Improved 9. Demand ischemia secondary to sepsis 10. Anemia - Likely secondary to sepsis and IV fluid - Hemoglobin is stable 11. Thrombocytopenia - Improved The care of this patient involved high complexity decision making to prevent further life threatening deterioration of the patient's condition and/or to evaluate & treat vital organ system(s) failure or risk of failure.
--- NOTE | 2017-11-08 19:13 | PN ---
Physical Exam: SUBJECTIVE: Patient seen and examined this am and evening in icu. Pt alert and oriented, girlfriend by bedside. Pt states he is feeling much better and denies any cp or sob. Shiley Catheter removed at bedside, scheduled for permacath insertion tomorrow. OBJECTIVE: Vital Signs Period Temp Pulse Resp BP Sys/Dangelo Pulse Ox Last 24 Hr 98.0 F-98.8 F 68-96 16-23 141-164/75-98 94-99 GENERAL: AAOx3 HEAD: NC/AT EYES: EOMI ENT: MMM NECK: No JVD LUNGS: CTA B/L HEART: RRR, no MRG, S1 S2 ABDOMEN: NT, ND, No HSM. EXTREMITIES: Warm, No CCE NEUROLOGICAL: No Neuro Deficits SKIN: No rashes or gross abnormalities. Laboratory Results - last 24 hr 11/08/17 11/08/17 11/08/17 05:15 05:15 10:00 WBC 13.3 H 13.1 H RBC 3.09 L 3.29 L Hgb 9.2 L 9.8 L Hct 27.3 L 29.1 L MCV 88.3 88.5 MCH 29.7 29.9 MCHC 33.6 33.8 RDW 13.2 13.2 Plt Count 348 347 MPV 7.3 L 7.1 L Absolute Neuts (auto) 10.8 Neutrophils % 82.4 Lymphocytes % 10.3 D Monocytes % 5.2 Eosinophils % 1.8 D Basophils % 0.3 Nucleated RBC % 0 Sodium 136 Potassium 4.5 Chloride 101 Carbon Dioxide 27 Anion Gap 8 BUN 51 H Creatinine 8.2 H* Creat Clearance w eGFR 7.69 Random Glucose 103 Uric Acid 6.3 Calcium 7.2 L Magnesium 2.0 Total Bilirubin 0.6 AST 177 H D ALT 152 H Alkaline Phosphatase 108 D Creatine Kinase 5188 H Creatine Kinase Index 0.0 CK-MB (CK-2) 2.55 Total Protein 5.2 L Albumin 1.8 L Active Medications Generic Name Dose Route Start Last Admin Trade Name Freq PRN Reason Stop Dose Admin Chlorhexidine Gluconate 1 applic 11/01/17 22:00 11/07/17 21:42 Hibiclens For Decolonization - TP 1 applic HS ODILIA Administration Furosemide 100 mg 11/08/17 11:00 11/08/17 13:24 Lasix Injection - IVPB 100 mg DAILY ODILIA Administration Levofloxacin 500 mg in 100 mls @ 100 mls/hr 11/03/17 10:00 11/07/17 09:30 Levaquin 500 Mg Premixed Ivpb - IVPB 100 mls/hr Q48H ODILIA Administration Protocol Ondansetron HCl 4 mg 11/06/17 09:48 11/07/17 10:00 Zofran Injection IVPUSH 4 mg Q6H PRN Administration NAUSEA Pantoprazole Sodium 40 mg 11/06/17 10:00 11/08/17 10:16 Protonix Iv IVPUSH 40 mg DAILY ODILIA Administration ASSESSMENT/PLAN: Pt is a 32 y/o M with no significant pmh who was at a barbeque a few days ago, developed dark, watery diarrhea and fevers. Pt observed his urine to be darker than usual and was urinating less frequently. BIBA to [facility] c/o generalized weakness and AMS per family. No recent travel or sick contacts. No skin rashes. Neuro- AMS Head CT--> No Intracranial hemmorhage, midline shift, or edema. Pulm-Legionella Pneumonia -Legionella Urine Antigen + ID on Board-continue levaquin 500 q48h Chest XRAY 11/08--> Left pleural effusion, blunting left costophrenic angle, effacement of left diaphragm. Segmental left lower lip infiltrate or atelectasis cannot be excluded. Renal: SALBADOR 2/2 Hypoperfusion BUN/CR--> 51/8.2 today 11/[address] Edmondson on board Per Nephro: Start Lasix 100mg IVPB daily, IVF D/C'ed Abd/Pelvis CT--> Extensive left lower lobe consolidation suspicious for acute pneumonia. Atelectasis/consolidation right lung base. Abdomen Ultrasound--> Hepatosplenomegaly. Received HD Today Pt scheduled for Permacath insertion tomorrow w/ Dr Ariana Her GI on board Transaminitis secondary to sepsis continue to trend liver enzymes and recall as necessary FEN No Fluids Monitor Electrolytes Renal Diet DVT ppx: Heparin 5,000 U SQ BID Dispo: Continue to monitor in icu. Visit type - Emergency Visit Emergency Visit: Yes ED Registration Date: 11/01/17 Care time: The patient presented to the Emergency Department on the above date and was hospitalized for further evaluation of their emergent condition. - New Patient This patient is new to me today: No - Critical Care Critical Care patient: Yes Total Critical Care Time (in minutes): 35 Critical Care Statement: The care of this patient involved high complexity decision making to prevent further life threatening deterioration of the patient 's condition and/or to evaluate & treat vital organ system(s) failure or risk of failure.
[2017-11-08] MEDS ORDERED: ONDANSETRON 4 MG/2 ML VIAL IVPUSH PRN (20:11)
[2017-11-09 08:53] LABS: HEMATOCRIT 27.6 % (35.4-49); HEMOGLOBIN 9.3 GM/dL (11.7-16.9); MCHC 33.7 g/dl (32.0-35.9); MEAN CELL VOLUME 89.1 fl (80-96); MEAN PLT VOLUME 7.9 fl (7.5-11.1); PLATELET COUNT 354 K/MM3 (134-434); RDW 13.3 % (11.9-15.9); WHITE BLOOD COUNT 11.9 K/mm3 (4.0-10.0)
[2017-11-09 08:54] LABS: ALBUMIN 2.1 g/dl (3.4-5.0); ANION GAP 10 (8-16); BLOOD UREA NITROGEN 46 mg/dL (7-18); CALCIUM 8.1 mg/dL (8.5-10.1); CHLORIDE 100 mmol/L (98-107); CO2 28 mmol/L (21-32); MAGNESIUM 2.1 mg/dL (1.8-2.4); POTASSIUM 4.7 mmol/L (3.5-5.1); SODIUM 138 mmol/L (136-145)
[2017-11-09 09:00] LABS: ALK PHOS 120 U/L (45-117); BILIRUBIN,TOTAL 0.6 mg/dL (0.2-1.0); CREATININE 6.7 mg/dL (0.7-1.3); GLUCOSE,RANDOM 88 mg/dL (74-106); PHOSPHOROUS 6.4 mg/dL (2.5-4.9); SGOT/AST 143 U/L (15-37); SGPT/ALT 136 U/L (12-78); TOT PROT 5.8 g/dl (6.4-8.2)
[2017-11-09] MEDS ORDERED: FUROSEMIDE 100 MG/10 ML INJECTABLE VIAL IVPB SCH (10:00)
[2017-11-09] MEDS ORDERED: PANTOPRAZOLE SODIUM 40 MG VIAL IVPUSH SCH (10:00)
--- NOTE | 2017-11-09 10:25 | PN ---
Physical Exam: SUBJECTIVE: Patient seen and examined at bedside. No acute events overnight. Denies fever/chills, nausea/vomiting, headaches/dizziness. Pt feels stronger today and asking when to go home. OBJECTIVE: Vital Signs Period Temp Pulse Resp BP Sys/Dangelo Pulse Ox Last 24 Hr 98.3 F-98.7 F 75-97 18-23 146-176/75-96 99 GENERAL: AAOx3. NAD. Resting comfortably. Dysarthric. HEAD: AT/NC. No facial droop. Moist mucus membranes. NECK: Trachea midline, full range of motion, supple. LUNGS: CTA B/L. Diminished breath sounds in bilateral lower lung bases. +mild L crackles. HEART: RRR. Normal S1, S2. No murmurs, rubs or gallop noted. ABDOMEN: Soft, nontender, nondistended, normoactive bowel sounds, no guarding, no rebound, no hepatosplenomegaly, no masses. EXTREMITIES: 2+ pulses, warm, well-perfused, no edema. 4/5 muscle strength b/l u /L LE. NEUROLOGICAL: Cranial nerves II through X grossly intact. mildly slurred speech , gait not observed. SKIN: Warm, dry, normal turgor, no rashes or lesions noted Laboratory Results - last 24 hr 11/08/17 11/09/17 11/09/17 10:00 07:41 07:41 WBC 13.1 H 11.9 H RBC 3.29 L 3.10 L Hgb 9.8 L 9.3 L Hct 29.1 L 27.6 L MCV 88.5 89.1 MCH 29.9 30.0 MCHC 33.8 33.7 RDW 13.2 13.3 Plt Count 347 354 MPV 7.1 L 7.9 D Absolute Neuts (auto) 10.8 Neutrophils % 82.4 Lymphocytes % 10.3 D Monocytes % 5.2 Eosinophils % 1.8 D Basophils % 0.3 Nucleated RBC % 0 Sodium 138 Potassium 4.7 Chloride 100 Carbon Dioxide 28 Anion Gap 10 BUN 46 H Creatinine 6.7 H Creat Clearance w eGFR 9.70 Random Glucose 88 Calcium 8.1 L Phosphorus 6.4 H D Magnesium 2.1 Total Bilirubin 0.6 AST 143 H ALT 136 H Alkaline Phosphatase 120 H D Total Protein 5.8 L Albumin 2.1 L Active Medications Generic Name Dose Route Start Last Admin Trade Name Freq PRN Reason Stop Dose Admin Furosemide 100 mg 11/09/17 10:00 Lasix Injection - IVPB DAILY ODILIA Levofloxacin 500 mg in 100 mls @ 100 mls/hr 11/09/17 10:00 Levaquin 500 Mg Premixed Ivpb - IVPB 11/09/17 10:59 ONCE ONE Levofloxacin 250 mg in 50 mls @ 50 mls/hr 11/10/17 10:00 Levaquin 250 Mg Premixed Ivpb - IVPB DAILY@1000 ODILIA Ondansetron HCl 4 mg 11/08/17 20:11 Zofran Injection IVPUSH Q6H PRN NAUSEA Pantoprazole Sodium 40 mg 11/09/17 10:00 Protonix Iv IVPUSH DAILY ODILIA UA: 2+ protein, 3+ blood with minimal RBC's, 4 WBC's Tox screen: +Marijuana, <4.0 Salicylates IMAGING: Head CT: No evidence of acute intracranial hemmorhage, edema, midline shift, mass effect, or skull fx. No CT evidence of acute territorial infarction. Abd U/S: Borderline hepatosplenomegaly w/ no evidence of acute pathology within the abdomen. Liver is borderline enlarged measuring 17.6 cm in craniocaudad dimension. It is homogenous in teexture. There is an echogenic mass within the L lobe measuring 2.cm. This is consistent w/ a hemangioma. No additional intrahepatic masses are identified. The portal flow is documented within the main portal vein. CT Abd/Pel w/o contrast: 1. Extensive L lower lobe consolidation suspicious for acute pna. There is a lesser degree of consolidation/atelectasis within the R lung base. 2. Limited study w/ no gross evidence of acute pathology within the abdomen or pelvis. Abd xray: Colonic ileus w/ some contrast in R colon and rectosigmoid. Free air not seen. ASSESSMENT/PLAN: The patient is a 32 yo M w/ no pmhx admitted to the ICU for legionella PNA, rhabdo and SALBADOR. #nausea/vomiting/constipation -Abd xray showed colonic ileus w/ some contrast in R colon and rectosigmoid. -cont Zofran 4mg IV Q6h -cont Protonix 40mg IV QD #Pneumonia possibly 2/2 to Legionella -Per ID: cont Levofloxacin 500 mg Q48H (Day #7 of antibiotics completed yesterday) -Legionella urine positive, serology negative, f/u sputum cx #Toxic Metabolic Encephalopathy -improving, AAOx3 today -CSF WNL -bcx, ucx negative #Acute Renal Failure likely 2/2 Rhabdo; currently with hernandez in place. -Cr 6.7 today < 8.2 -Permacath insertion today w/ vasc surg (Dr. Vallecillo); HD likely needed after discharge, recover expected in 3-4 weeks -cont Lasix 100 mg IVPB QD -d/c hernandez in AM, per nephro #Acute Rhabdomyolysis; etiology unclear -CK trending down; 5188 < -cont to trend CK -HD per nephro for renal support #Transaminitis; -resolving; LFTs trending down #Mild troponinemia. Resolved. -likely demand 2/2 sepsis #Mild thrombocytopenia; Resolved. 127 today. #DVT Prophylaxis -Heparin 5000U SQ TID #FEN -no IVf needed at this time -monitor lytes -renal diet Dispo -cont to monitor in ICU -Spoke w/ CM regarding d/c, pt needs acute rehab w/ HD for continuation of treatment Visit type - Emergency Visit Emergency Visit: Yes ED Registration Date: 11/01/17 Care time: The patient presented to the Emergency Department on the above date and was hospitalized for further evaluation of their emergent condition. - New Patient This patient is new to me today: No - Critical Care Critical Care patient: No
--- NOTE | 2017-11-09 12:13 | PN ---
Progress Note, FINANCE VICE PRESIDENT - Note Progress Note: Pt was upgraded diet from puree/honey thick liquid to regular renal diet/ Thin liquids nover the weekend. Pt received hamburger yestereday but did not have it in ICU, too lethargic from Dialysis. Pt said he had chicken last night, that did tick in his throat a little, but he washed it down with water. He denied coughing on water. MBS last week with stasis with puree and silent aspiration on nectar. Repeat MBS? PO tolerance of solids/thin liquid? NPO for procedure today. Suggest trial of Dys chopped/tuna/egg salad and nectar thick liquid, tonight, if medically stable. MBS tomorrow to reassess present swallowing function/ and r/o silent aspiration/ stasis.
--- NOTE | 2017-11-09 12:39 | PN ---
Progress Note, Physician History of Present Illness: PULMONARY ALERT,NO DISTRESS,WEAK. - Current Medication List Current Medications: Active Medications Furosemide (Lasix Injection -) 100 mg IVPB DAILY ODILIA Levofloxacin (Levaquin 250 Mg Premixed Ivpb -) 250 mg in 50 mls @ 50 mls/hr IVPB DAILY@1000 ODILIA Ondansetron HCl (Zofran Injection) 4 mg IVPUSH Q6H PRN PRN Reason: NAUSEA Pantoprazole Sodium (Protonix Iv) 40 mg IVPUSH DAILY ODILIA - Objective Vital Signs: Vital Signs Temperature 98.7 F 11/09/17 06:17 Pulse Rate 87 11/09/17 06:17 Respiratory Rate 20 11/09/17 06:17 Blood Pressure 169/86 11/09/17 06:17 O2 Sat by Pulse Oximetry (%) 99 11/08/17 20:36 Constitutional: Yes: Well Nourished, Calm Eyes: Yes: WNL HENT: Yes: WNL Neck: Yes: WNL Cardiovascular: Yes: Regular Rate and Rhythm, S1, S2 Respiratory: Yes: Diminished Gastrointestinal: Yes: Normal Bowel Sounds, Soft Extremities: Yes: WNL Edema: No Labs: CBC, BMP 11/09/17 07:41 11/09/17 07:41 INR, PTT INR 1.36 (0.83-1.09) H 11/02/17 05:30 - ....Imaging Chest X-ray: Report Reviewed, Image Reviewed Problem List - Problems (1) Acute kidney failure Code(s): N17.9 - ACUTE KIDNEY FAILURE, UNSPECIFIED Qualifiers: Acute renal failure type: unspecified Qualified Code(s): N17.9 - Acute kidney failure, unspecified (2) Altered mental status Code(s): R41.82 - ALTERED MENTAL STATUS, UNSPECIFIED Qualifiers: Altered mental status type: disorientation Qualified Code(s): R41.0 - Disorientation, unspecified (3) Elevated LFTs Code(s): R94.5 - ABNORMAL RESULTS OF LIVER FUNCTION STUDIES (4) Fever Code(s): R50.9 - FEVER, UNSPECIFIED Qualifiers: Fever type: unspecified Qualified Code(s): R50.9 - Fever, unspecified (5) Hepatocellular injury Code(s): K76.9 - LIVER DISEASE, UNSPECIFIED (6) Legionella pneumonia Code(s): A48.1 - LEGIONNAIRES' DISEASE (7) Pneumonia Code(s): J18.9 - PNEUMONIA, UNSPECIFIED ORGANISM (8) URI (upper respiratory infection) Code(s): J06.9 - ACUTE UPPER RESPIRATORY INFECTION, UNSPECIFIED Qualifiers: URI type: unspecified viral URI Qualified Code(s): J06.9 - Acute upper respiratory infection, unspecified Assessment/Plan ASSESSMENT AND PLAN: Resolving Legionella Pneumonia Resolving Severe Sepsis Acute Kidney Injury requiring HD Metabolic Acidosis Resolving AMS Thrombocytopenia Hyponatremia Elevated LFTs +Troponins likely Demand Ischemia Resolving Rhabdomyolysis ABX per ID HD per Renal: will need to make assessment if he will need prolonged HD as the access is 1 week old Monitor urine output, creatinine Advance diet as tolerated VTE prophylaxis DR LOPEZ
[2017-11-09] MEDS ORDERED: ONDANSETRON 4 MG/2 ML VIAL IVPUSH PRN ×3 (14:13→16:21)
[2017-11-09] MEDS ORDERED: LIDOCAINE HCL 2% (20ML MULTI-DOSE VIAL) NR ONE (14:29)
[2017-11-09] MEDS ORDERED: LIDOCAINE HCL 1%, 10 MG/ML (20ML VIAL) ONE (14:30)
[2017-11-09] MEDS ORDERED: SODIUM CHLORIDE 250 ML IV PRN ×3 (14:52→16:21)
--- NOTE | 2017-11-09 14:52 | PN ---
Progress Note (short form) - Note Progress Note: Renal Follow up for SALBADOR Pt seen and examined in the ICU awake and alert still mildly slurred speech but improving s/p dialysis yesterday denies any sob, cp, abd pain, N/V/D Vital Signs Temperature 98.5 F 11/09/17 14:00 Pulse Rate 90 11/09/17 14:00 Respiratory Rate 20 11/09/17 09:00 Blood Pressure 124/86 11/09/17 14:00 O2 Sat by Pulse Oximetry (%) 99 11/09/17 09:00 Intake & Output 11/06/17 11/07/17 11/08/17 11/09/17 23:59 23:59 23:59 23:59 Intake Total 3070 4120 1713 150 Output Total 979 546 2796 Balance 2720 3495 163 150 Weight 103.737 kg 107.048 kg NAD awake and alert speech is slurred RRR, No M/R Dec BS at lung bases soft NT/ND Trace LE edema CBC, BMP 11/09/17 07:41 11/09/17 07:41 Current Medications Fentanyl (Sublimaze Injection -) 25 mcg IVPUSH [id number] PRN PRN Reason: PAIN-PACU ORDER X 4 DOSES ONLY Furosemide (Lasix Injection -) 100 mg IVPB DAILY [facility] Last Admin: 11/09/17 12:00 Dose: 100 mg Levofloxacin (Levaquin 250 Mg Premixed Ivpb -) 250 mg in 50 mls @ 50 mls/hr IVPB DAILY@1000 ODILIA Ondansetron HCl (Zofran Injection) 4 mg IVPUSH Q6H PRN PRN Reason: NAUSEA Ondansetron HCl (Zofran Injection) 4 mg IVPUSH Q6H PRN PRN Reason: NAUSEA AND/OR VOMITING Pantoprazole Sodium (Protonix Iv) 40 mg IVPUSH DAILY [facility] Last Admin: 11/09/17 12:00 Dose: 40 mg 32 year old gentleman with no significant PMhx presented with AMS/generalized weakness and found to have oliguric renal failure. #Acute Renal Injury secondary to legionella infection + Pigment injury from Rhabdo for tunneled HD catheter placement today next dialysis planned for tomorrow trend urine output and BUN/Cr to monitor for renal recovery may need outpatient placement for short term HD Continue IV Lasix daily d/c david Edmondson DO
[2017-11-09] MEDS ORDERED: MIDAZOLAM HCL 2 MG/2 ML SINGLE DOSE VIAL ONE ×2 (14:57)
[2017-11-09] MEDS ORDERED: ceFAZolin SODIUM 1 GM VIAL IVPB ONE (15:00)
[2017-11-09] MEDS ORDERED: PROPOFOL 20 ML ONE (15:08)
--- NOTE | 2017-11-09 15:11 | PN ---
Teaching Attending Note Name of Resident: Nicci Gordon ATTENDING PHYSICIAN STATEMENT I saw and evaluated the patient. I reviewed the resident's note and discussed the case with the resident. I agree with the resident's findings and plan as documented. SUBJECTIVE: Patient transferred out of ICU. He is awake and alert laying in bed. He has no complaints - he denies abdominal pain, nausea, diarrhea. OBJECTIVE: Vital Signs Period Temp Pulse Resp BP Sys/Dangelo Pulse Ox Last 24 Hr 98.3 F-98.7 F 86-97 20-23 124-176/81-96 99-99 HEART: S1S2, RRR LUNGS: Clear ABDOMEN: Soft, non-tender, non-distended, normal BS EXTREMITIES: No edema Laboratory Results - last 24 hr 11/09/17 11/09/17 07:41 07:41 WBC 11.9 H RBC 3.10 L Hgb 9.3 L Hct 27.6 L MCV 89.1 MCH 30.0 MCHC 33.7 RDW 13.3 Plt Count 354 MPV 7.9 D Sodium 138 Potassium 4.7 Chloride 100 Carbon Dioxide 28 Anion Gap 10 BUN 46 H Creatinine 6.7 H Creat Clearance w eGFR 9.70 Random Glucose 88 Calcium 8.1 L Phosphorus 6.4 H D Magnesium 2.1 Total Bilirubin 0.6 AST 143 H ALT 136 H Alkaline Phosphatase 120 H D Total Protein 5.8 L Albumin 2.1 L Current Medications Generic Name Dose Route Start Last Admin Trade Name Freq PRN Reason Stop Dose Admin Fentanyl 25 mcg 11/09/17 14:13 Sublimaze Injection - IVPUSH [id number] PRN PAIN-PACU ORDER X 4 DOSES ONLY Furosemide 100 mg 11/09/17 10:00 11/09/17 12:00 Lasix Injection - IVPB 100 mg DAILY ODILIA Administration Levofloxacin 250 mg in 50 mls @ 50 mls/hr 11/10/17 10:00 Levaquin 250 Mg Premixed Ivpb - IVPB DAILY@1000 ODILIA Sodium Chloride 250 mls @ 3,000 mls/hr 11/09/17 14:59 Normal Saline - IV PRN PRN Hypotension during Dialysis Ondansetron HCl 4 mg 11/08/17 20:11 Zofran Injection IVPUSH Q6H PRN NAUSEA Ondansetron HCl 4 mg 11/09/17 14:13 Zofran Injection IVPUSH Q6H PRN NAUSEA AND/OR VOMITING Pantoprazole Sodium 40 mg 11/09/17 10:00 11/09/17 12:00 Protonix Iv IVPUSH 40 mg DAILY ODILIA Administration ASSESSMENT AND PLAN: This is a 32 year old man with no significant history who presented to the ED with change of mental status. 1. Severe sepsis secondary to Legionella pneumonia - Continue Levaquin - Sputum Legionella culture pending 2. Large bowel ileus - Clinically improved 3. Acute metabolic encephalopathy secondary to severe sepsis - Improving 4. Acute kidney injury - Urine output improving - Continue HD as per nephrology - Continue Lasix IV - Permcath placement today 5. Rhabdomyolysis - Improving 6. Hepatic transaminitis secondary to sepsis - Improving 7. Hyponatremia - Improved 8. Hypokalemia - Improved 9. Demand ischemia secondary to sepsis 10. Anemia - Likely secondary to sepsis and IV fluid - Hemoglobin is stable 11. Thrombocytopenia - Improved 12. Disposition - Physical therapy - May need rehab at discharge
[2017-11-09] MEDS ORDERED: LIDOCAINE HCL 1%, 10 MG/ML (20ML VIAL) NR ONE (15:13)
[2017-11-09] MEDS ORDERED: HEPARIN NA (PORCINE) 5,000 UNITS/ML 1ML VIAL ONE (15:36)
--- NOTE | 2017-11-09 16:03 | OP ---
Operative Note - Note: Operative Date: 11/09/17 Pre-Operative Diagnosis: ESRD Operation: Insertion of permacath Post-Operative Diagnosis: Same as Pre-op Surgeon: Norberto Vallecillo Anesthesia: Fractional Estimated Blood Loss (mls): 50 Operative Report Dictated: Yes
--- NOTE | 2017-11-09 17:41 | OP ---
DATE OF OPERATION: 11/09/2017 PREOPERATIVE DIAGNOSIS: End-stage renal disease. POSTOPERATIVE DIAGNOSIS: End-stage renal disease. PROCEDURE: Insertion of PermCath. SURGEON: Norberto Pimentel DO ANESTHESIA: Fractional. BLOOD LOSS: 50 mL. INDICATIONS: The patient is a 32-year-old patient who comes in with Legionella infection and rhabdomyolysis leading to renal failure. He now needs a temporary dialysis catheter placement. DESCRIPTION: The patient was consented for the procedure, understanding all risks, benefits, and alternatives, and taken to the operating room. Once in the operating room, he laid on the operating table in supine manner. The area of the right neck and chest were prepped and draped in a sterile surgical manner. Under ultrasound guidance, we visualized right internal jugular vein, and 10 mL of lidocaine 1% was injected over the vein. We then took our micropuncture needle and punctured the right internal jugular vein, micropuncture dart inserted, micropuncture sheath was inserted, and a 0.035 floppy guidewire was inserted into the vein under fluoroscopy. We then went ahead and injected 10 mL of lidocaine 1% above and below the clavicle. We then took an 11-blade and made a 1-cm incision at the puncture site. We then took a 15-blade and made a 1-cm incision below the clavicle. We then tunneled the PermCath up to the puncture site. We then placed our breakaway sheath over the guidewire into the vein under fluoroscopy, and the cannula and guidewire were removed. Catheter was placed inside the sheath, sheath was broken away, and the catheter was placed inside the vein. Neck of the catheter was nice and smooth. The tip of the catheter was located outside the right atrium. We then jodi back on each port of the catheter, and there was good flow. Heparinized saline was injected, 2000 units of IV heparin was injected. A 4-0 Biosyn was used and 2 simple stitches were placed at the puncture site, 3-0 nylon used, and the catheter was attached to the skin. BioPatch, Steri-Strips, 4x4, and Tegaderms were placed. Patient tolerated the procedure with no complication. Patient transferred to PACU in stable condition. NORBERTO PIMENTEL DO [employer] OFFIC[employer]/[id number]
--- NOTE | 2017-11-10 08:06 | PN ---
Physical Exam: SUBJECTIVE: Patient seen and examined at bedside. Pt reports he tried to stand up yesterday, but was too weak. He is requesting to see PT today. No other complaints overnight. Denies fever/chills, nausea/vomiting, urinary/bowel symptoms. OBJECTIVE: Vital Signs Temperature 98.2 F 11/10/17 06:00 Pulse Rate 93 H 11/10/17 06:00 Respiratory Rate 18 11/10/17 06:00 Blood Pressure 141/87 11/10/17 06:00 O2 Sat by Pulse Oximetry (%) 97 11/09/17 21:00 GENERAL: AAOx3. NAD. Resting comfortably. Dysarthric. HEAD: AT/NC. No facial droop. Moist mucus membranes. NECK: Trachea midline, full range of motion, supple. LUNGS: CTA B/L. Diminished breath sounds in bilateral lower lung bases. +mild L crackles. HEART: RRR. Normal S1, S2. No murmurs, rubs or gallop noted. ABDOMEN: Soft, nontender, nondistended, normoactive bowel sounds, no guarding, no rebound, no hepatosplenomegaly, no masses. EXTREMITIES: 2+ pulses, warm, well-perfused, no edema. 4/5 muscle strength b/l u /L LE. NEUROLOGICAL: Cranial nerves II through X grossly intact. mildly slurred speech , gait not observed. SKIN: Warm, dry, normal turgor, no rashes or lesions noted. Laboratory Results - last 24 hr CBC, BMP 11/09/17 07:41 11/09/17 07:41 Active Medications Furosemide (Lasix Injection -) 100 mg IVPB DAILY ODILIA Levofloxacin (Levaquin 250 Mg Premixed Ivpb -) 250 mg in 50 mls @ 50 mls/hr IVPB DAILY@1000 ODILIA Sodium Chloride (Normal Saline -) 250 mls @ 3,000 mls/hr IV PRN PRN PRN Reason: Hypotension during Dialysis Ondansetron HCl (Zofran Injection) 4 mg IVPUSH Q6H PRN PRN Reason: NAUSEA Pantoprazole Sodium (Protonix Iv) 40 mg IVPUSH DAILY ODILIA UA: 2+ protein, 3+ blood with minimal RBC's, 4 WBC's Tox screen: +Marijuana, <4.0 Salicylates IMAGING: Head CT: No evidence of acute intracranial hemmorhage, edema, midline shift, mass effect, or skull fx. No CT evidence of acute territorial infarction. Abd U/S: Borderline hepatosplenomegaly w/ no evidence of acute pathology within the abdomen. Liver is borderline enlarged measuring 17.6 cm in craniocaudad dimension. It is homogenous in teexture. There is an echogenic mass within the L lobe measuring 2.cm. This is consistent w/ a hemangioma. No additional intrahepatic masses are identified. The portal flow is documented within the main portal vein. CT Abd/Pel w/o contrast: 1. Extensive L lower lobe consolidation suspicious for acute pna. There is a lesser degree of consolidation/atelectasis within the R lung base. 2. Limited study w/ no gross evidence of acute pathology within the abdomen or pelvis. Abd xray: Colonic ileus w/ some contrast in R colon and rectosigmoid. Free air not seen. ASSESSMENT/PLAN: 32M w/ no pmhx admitted to the ICU for Legionella PNA, rhabdomyolysis and ARF. #Pneumonia possibly 2/2 to Legionella; Afebrile. WBC improving. -Per ID: cont Levofloxacin 500 mg Q48H (Day #9 of antibiotics), f/u additional ID recs -Legionella urine positive, serology negative, f/u sputum cx #Toxic Metabolic Encephalopathy; Improving, AAOx3. -Pt's motor skills has been improving since he can now move extremities and respond to commands, however he is unable to stand and walk due to weakness. Pt also has slurred speech. -f/u PT eval -f/u speech and swallow eval -CSF WNL -bcx, ucx negative #nausea/vomiting/constipation; Resolved. -Abd xray showed colonic ileus w/ some contrast in R colon and rectosigmoid. -cont Zofran 4mg IV Q6h -cont Protonix 40mg IV QD #Acute Renal Failure likely 2/2 Rhabdo -HD today, f/u Cr -s/p permacath insertion by vasc surg on 11/09 -cont Lasix 100 mg IVPB QD #Acute Rhabdomyolysis; etiology unclear -CK trending down; 5188 < -cont to trend CK #Transaminitis; Resolving. LFTs trending down #Mild troponemia; Resolved. #Mild thrombocytopenia; Resolved. #DVT Prophylaxis -Heparin 5000U SQ TID #FEN -no IVf needed at this time -monitor lytes -dysphagia puree/honey thick liquid; MBS cannot be done today as BP elevated and pt at dialysis, possibly tomorrow Dispo -cont to monitor in ICU -Spoke w/ CM, pt needs outpatient HD Visit type - Emergency Visit Emergency Visit: Yes ED Registration Date: 11/01/17 Care time: The patient presented to the Emergency Department on the above date and was hospitalized for further evaluation of their emergent condition. - New Patient This patient is new to me today: No - Critical Care Critical Care patient: No
--- NOTE | 2017-11-10 12:04 | PN ---
Progress Note, FUSE ASSEMBLER - Note Progress Note: Selected Entries 11/09/17 11/09/17 11/09/17 06:00 06:17 10:17 Breakfast Supper Temperature 98.5 F 98.7 F 98.6 F 11/09/17 11/09/17 11/09/17 14:00 15:56 17:10 Breakfast Supper Temperature 98.5 F 98.2 F 97.9 F 11/09/17 11/09/17 11/10/17 19:30 20:19 02:00 Breakfast Supper 0 Temperature 97.9 F 98.3 F 98.2 F 11/10/17 11/10/17 06:00 09:48 Breakfast 0 Supper Temperature 98.2 F Laboratory Tests 11/07/17 11/08/17 11/09/17 05:15 05:15 07:41 WBC 10.9 H 13.3 H 11.9 H 11/09/17 CXR noted- Please review. r/o aspiration. Pt on dys chopped/nectar pending MBS to upgrade with safety. Pt observed coughing responsively on nectar thick liquid, c/w aspiration. MBS can not be done today as BP is elevated and pt pending Dialysis. REC: Downgrade to Dys puree/honey thick liquid MBS tmw, if medically stable.
--- NOTE | 2017-11-10 12:38 | PN ---
Progress Note, Physician History of Present Illness: pulmonary drowsy,nad,-congestion,-dyspnea - Current Medication List Current Medications: Active Medications Furosemide (Lasix Injection -) 100 mg IVPB DAILY ODILIA Levofloxacin (Levaquin 250 Mg Premixed Ivpb -) 250 mg in 50 mls @ 50 mls/hr IVPB DAILY@1000 ODILIA Sodium Chloride (Normal Saline -) 250 mls @ 3,000 mls/hr IV PRN PRN PRN Reason: Hypotension during Dialysis Ondansetron HCl (Zofran Injection) 4 mg IVPUSH Q6H PRN PRN Reason: NAUSEA Pantoprazole Sodium (Protonix Iv) 40 mg IVPUSH DAILY ODILIA - Objective Vital Signs: Vital Signs Temperature 98.2 F 11/10/17 06:00 Pulse Rate 93 H 11/10/17 06:00 Respiratory Rate 18 11/10/17 06:00 Blood Pressure 141/87 11/10/17 06:00 O2 Sat by Pulse Oximetry (%) 97 11/09/17 21:00 Constitutional: Yes: Well Nourished, Other (drowsy) Eyes: Yes: WNL HENT: Yes: WNL Neck: Yes: WNL Cardiovascular: Yes: Regular Rate and Rhythm, S1, S2 Respiratory: Yes: Rales Gastrointestinal: Yes: Normal Bowel Sounds, Soft Extremities: Yes: WNL Edema: Yes Labs: CBC, BMP 11/09/17 07:41 11/09/17 07:41 INR, PTT INR 1.36 (0.83-1.09) H 11/02/17 05:30 Problem List - Problems (1) Acute kidney failure Code(s): N17.9 - ACUTE KIDNEY FAILURE, UNSPECIFIED Qualifiers: Acute renal failure type: unspecified Qualified Code(s): N17.9 - Acute kidney failure, unspecified (2) Altered mental status Code(s): R41.82 - ALTERED MENTAL STATUS, UNSPECIFIED Qualifiers: Altered mental status type: disorientation Qualified Code(s): R41.0 - Disorientation, unspecified (3) Elevated LFTs Code(s): R94.5 - ABNORMAL RESULTS OF LIVER FUNCTION STUDIES (4) Fever Code(s): R50.9 - FEVER, UNSPECIFIED Qualifiers: Fever type: unspecified Qualified Code(s): R50.9 - Fever, unspecified (5) Hepatocellular injury Code(s): K76.9 - LIVER DISEASE, UNSPECIFIED (6) Legionella pneumonia Code(s): A48.1 - LEGIONNAIRES' DISEASE (7) Pneumonia Code(s): J18.9 - PNEUMONIA, UNSPECIFIED ORGANISM (8) URI (upper respiratory infection) Code(s): J06.9 - ACUTE UPPER RESPIRATORY INFECTION, UNSPECIFIED Qualifiers: URI type: unspecified viral URI Qualified Code(s): J06.9 - Acute upper respiratory infection, unspecified Assessment/Plan ASSESSMENT AND PLAN: Resolving Legionella Pneumonia Resolving Severe Sepsis Acute Kidney Injury requiring HD Metabolic Acidosis Resolving AMS Thrombocytopenia Hyponatremia Elevated LFTs +Troponins likely Demand Ischemia Resolving Rhabdomyolysis ABX per ID HD per Renal Monitor urine output, creatinine Advance diet as tolerated VTE prophylaxis DR LOPEZ
--- NOTE | 2017-11-10 12:43 | PN ---
Teaching Attending Note Name of Resident: Nicci Gordon ATTENDING PHYSICIAN STATEMENT I saw and evaluated the patient. I reviewed the resident's note and discussed the case with the resident. I agree with the resident's findings and plan as documented. SUBJECTIVE: Patient is doing better today , speech is better but as per patient his speech is not completely back to normal. He feels weak. He is not able to stand up. OBJECTIVE: Vital Signs Temperature 98.2 F 11/10/17 06:00 Pulse Rate 93 H 11/10/17 06:00 Respiratory Rate 18 11/10/17 06:00 Blood Pressure 141/87 11/10/17 06:00 O2 Sat by Pulse Oximetry (%) 97 11/09/17 21:00 CBCD WBC 11.9 K/mm3 (4.0-10.0) H 11/09/17 07:41 RBC 3.10 M/mm3 (4.00-5.60) L 11/09/17 07:41 Hgb 9.3 GM/dL (11.7-16.9) L 11/09/17 07:41 Hct 27.6 % (35.4-49) L 11/09/17 07:41 MCV 89.1 fl (80-96) 11/09/17 07:41 MCHC 33.7 g/dl (32.0-35.9) 11/09/17 07:41 RDW 13.3 % (11.9-15.9) 11/09/17 07:41 Plt Count 354 K/MM3 (134-434) 11/09/17 07:41 MPV 7.9 fl (7.5-11.1) D 11/09/17 07:41 CMP Sodium 138 mmol/L (136-145) 11/09/17 07:41 Potassium 4.7 mmol/L (3.5-5.1) 11/09/17 07:41 Chloride 100 mmol/L (98-107) 11/09/17 07:41 Carbon Dioxide 28 mmol/L (21-32) 11/09/17 07:41 Anion Gap 10 (8-16) 11/09/17 07:41 BUN 46 mg/dL (7-18) H 11/09/17 07:41 Creatinine 6.7 mg/dL (0.7-1.3) H 11/09/17 07:41 Creat Clearance w eGFR 9.70 (>60) 11/09/17 07:41 Random Glucose 88 mg/dL (74-106) 11/09/17 07:41 Calcium 8.1 mg/dL (8.5-10.1) L 11/09/17 07:41 Total Bilirubin 0.6 mg/dL (0.2-1.0) 11/09/17 07:41 AST 143 U/L (15-37) H 11/09/17 07:41 ALT 136 U/L (12-78) H 11/09/17 07:41 Alkaline Phosphatase 120 U/L (45-117) H D 11/09/17 07:41 Total Protein 5.8 g/dl (6.4-8.2) L 11/09/17 07:41 Albumin 2.1 g/dl (3.4-5.0) L 11/09/17 07:41 CARDIAC ENZYMES Creatine Kinase 5188 IU/L (39-308) H 11/08/17 05:15 Troponin I 0.21 ng/ml (0.00-0.05) H 11/04/17 05:30 Current Medications Generic Name Dose Route Start Last Admin Trade Name Freq PRN Reason Stop Dose Admin Furosemide 100 mg 11/10/17 10:00 Lasix Injection - IVPB DAILY ODILIA Levofloxacin 250 mg in 50 mls @ 50 mls/hr 11/10/17 10:00 Levaquin 250 Mg Premixed Ivpb - IVPB DAILY@1000 ODILIA Sodium Chloride 250 mls @ 3,000 mls/hr 11/09/17 16:21 Normal Saline - IV PRN PRN Hypotension during Dialysis Ondansetron HCl 4 mg 11/09/17 16:21 Zofran Injection IVPUSH Q6H PRN NAUSEA Pantoprazole Sodium 40 mg 11/10/17 10:00 Protonix Iv IVPUSH DAILY [facility] Home Medications Medication Instructions Recorded NK [No Known Home Medication] 10/31/17 Microbiology 11/04/17 10:20 Transtracheal Aspiration Legionella Culture - Preliminary 11/06/17 13:25 Stool Shiga Toxin Test - Preliminary 11/03/17 15:20 Blood - Shiley Catheter Blood Culture - Final NO GROWTH AFTER 5 DAYS INCUBATION 11/03/17 15:20 Blood - Peripheral Venous Blood Culture - Final NO GROWTH AFTER 5 DAYS INCUBATION 10/31/17 18:00 Blood - Peripheral Venous Blood Culture - Final NO GROWTH AFTER 5 DAYS INCUBATION 10/31/17 18:05 Blood - Peripheral Venous Blood Culture - Final NO GROWTH AFTER 5 DAYS INCUBATION 11/02/17 05:30 Serum Legionella Serology - Final 10/31/17 23:30 Cerebral Spinal Fluid - Lumbar Puncture Gram Stain - Final 10/31/17 23:30 Cerebral Spinal Fluid - Lumbar Puncture CSF Culture - Final 10/31/17 18:30 Urine - Urine - Catheterized Urine Culture - Final NO GROWTH OBTAINED 11/01/17 09:00 Urine - Urine Sunshine Legionella Antigen - Final 11/01/17 09:00 Urine - Urine Sunshine Streptococcus pneumoniae Antigen (M - Final Laboratory Tests 10/31/17 10/31/17 10/31/17 18:20 18:20 18:20 Schistocytes ESR Retic Count Haptoglobin PT with INR INR 1.12 H ABG pH ABG pCO2 at Pt Temp ABG pO2 at Pt Temp ABG HCO3 ABG O2 Sat (Measured) ABG O2 Content ABG Base Excess VBG pH 7.47 H POC VBG pCO2 26.9 L POC VBG pO2 66.4 H Mixed VBG HCO3 19.2 Sodium 131 L Potassium Creatinine Calcium Total Bilirubin Direct Bilirubin AST ALT LD Total Creatine Kinase CK-MB (CK-2) Troponin I Total Protein Urine Bacteria Urine Osmolality U Random Total Protein Ur Random Sodium Ur Random Potassium Ur Random Chloride Ur Random Urea Nitrogn Urine Creatinine CSF Appearance CSF Color CSF WBC CSF RBC CSF Neutrophils CSF Lymphocytes CSF Eosinophils CSF Basophils CSF Macrophages CSF Plasma Cells CSF Diff Comment CSF Comment CSF Glucose CSF Total Protein Opiates Screen Methadone Screen Barbiturate Screen Phencyclidine Screen Ur Amphetamines Screen MDMA (Ecstasy) Screen Benzodiazepines Screen Cocaine Screen U Marijuana (THC) Screen SHARAN M-Naveed AJ Screen c-ANCA Proteinase 3 (PR3) p-ANCA Atypical p-ANCA Myeloperoxidase Ab 10/31/17 10/31/17 10/31/17 18:30 18:30 23:30 Schistocytes ESR Retic Count Haptoglobin PT with INR INR ABG pH ABG pCO2 at Pt Temp ABG pO2 at Pt Temp ABG HCO3 ABG O2 Sat (Measured) ABG O2 Content ABG Base Excess VBG pH POC VBG pCO2 POC VBG pO2 Mixed VBG HCO3 Sodium Potassium Creatinine Calcium Total Bilirubin Direct Bilirubin AST ALT LD Total Creatine Kinase CK-MB (CK-2) Troponin I Total Protein Urine Bacteria Moderate Urine Osmolality U Random Total Protein Ur Random Sodium Ur Random Potassium Ur Random Chloride Ur Random Urea Nitrogn Urine Creatinine CSF Appearance Clear CSF Color [place] CSF WBC 0 CSF RBC 2112 CSF Neutrophils No Result Required. CSF Lymphocytes No Result Required. CSF Eosinophils No Result Required. CSF Basophils No Result Required. CSF Macrophages No Result Required. CSF Plasma Cells No Result Required. CSF Diff Comment CSF Comment No Result Required. CSF Glucose 73 CSF Total Protein 35 Opiates Screen Negative Methadone Screen Negative Barbiturate Screen Negative Phencyclidine Screen Negative Ur Amphetamines Screen Negative MDMA (Ecstasy) Screen Negative Benzodiazepines Screen Negative Cocaine Screen Negative U Marijuana (THC) Screen Positive SHARAN M-Naveed AJ Screen c-ANCA Proteinase 3 (PR3) p-ANCA Atypical p-ANCA Myeloperoxidase Ab 10/31/17 11/01/17 11/01/17 23:30 02:44 03:27 Schistocytes ESR Retic Count Haptoglobin Pending PT with INR INR ABG pH ABG pCO2 at Pt Temp ABG pO2 at Pt Temp ABG HCO3 ABG O2 Sat (Measured) ABG O2 Content ABG Base Excess VBG pH POC VBG pCO2 POC VBG pO2 Mixed VBG HCO3 Sodium Potassium Creatinine Calcium Total Bilirubin Direct Bilirubin AST ALT LD Total Creatine Kinase CK-MB (CK-2) Troponin I Total Protein Urine Bacteria Urine Osmolality U Random Total Protein Ur Random Sodium 24 Ur Random Potassium Ur Random Chloride Ur Random Urea Nitrogn Urine Creatinine 244.0 CSF Appearance Clear CSF Color Colorless CSF WBC 0 CSF RBC 19 CSF Neutrophils No Result Required. CSF Lymphocytes No Result Required. CSF Eosinophils No Result Required. CSF Basophils No Result Required. CSF Macrophages No Result Required. CSF Plasma Cells No Result Required. CSF Diff Comment No Result Required. CSF Comment CSF Glucose No Result Required. CSF Total Protein No Result Required. Opiates Screen Methadone Screen Barbiturate Screen Phencyclidine Screen Ur Amphetamines Screen MDMA (Ecstasy) Screen Benzodiazepines Screen Cocaine Screen U Marijuana (THC) Screen SHARAN M-Naveed AJ Screen c-ANCA Proteinase 3 (PR3) p-ANCA Atypical p-ANCA Myeloperoxidase Ab 11/01/17 11/01/17 11/01/17 07:50 07:50 07:50 Schistocytes Rare ESR Retic Count Haptoglobin PT with INR INR ABG pH ABG pCO2 at Pt Temp ABG pO2 at Pt Temp ABG HCO3 ABG O2 Sat (Measured) ABG O2 Content ABG Base Excess VBG pH POC VBG pCO2 POC VBG pO2 Mixed VBG HCO3 Sodium 131 L Potassium 3.7 Creatinine 8.6 H* Calcium 6.7 L* Total Bilirubin 1.7 H Direct Bilirubin 1.4 H AST 371 H D ALT 214 H D LD Total 1744 H Creatine Kinase 16239 H CK-MB (CK-2) 10.95 H Troponin I 0.18 H D Total Protein 5.6 L Urine Bacteria Urine Osmolality U Random Total Protein Ur Random Sodium Ur Random Potassium Ur Random Chloride Ur Random Urea Nitrogn Urine Creatinine CSF Appearance CSF Color CSF WBC CSF RBC CSF Neutrophils CSF Lymphocytes CSF Eosinophils CSF Basophils CSF Macrophages CSF Plasma Cells CSF Diff Comment CSF Comment CSF Glucose CSF Total Protein Opiates Screen Methadone Screen Barbiturate Screen Phencyclidine Screen Ur Amphetamines Screen MDMA (Ecstasy) Screen Benzodiazepines Screen Cocaine Screen U Marijuana (THC) Screen SHARAN M-Naveed AJ Screen c-ANCA Pending Proteinase 3 (PR3) Pending p-ANCA Pending Atypical p-ANCA Pending Myeloperoxidase Ab Pending 11/01/17 11/01/17 11/01/17 07:50 07:50 07:50 Schistocytes ESR Retic Count Haptoglobin PT with INR INR 1.13 H ABG pH ABG pCO2 at Pt Temp ABG pO2 at Pt Temp ABG HCO3 ABG O2 Sat (Measured) ABG O2 Content ABG Base Excess VBG pH POC VBG pCO2 POC VBG pO2 Mixed VBG HCO3 Sodium Potassium Creatinine Calcium Total Bilirubin Direct Bilirubin AST ALT LD Total Creatine Kinase CK-MB (CK-2) Troponin I Total Protein Urine Bacteria Urine Osmolality U Random Total Protein Ur Random Sodium Ur Random Potassium Ur Random Chloride Ur Random Urea Nitrogn Urine Creatinine CSF Appearance CSF Color CSF WBC CSF RBC CSF Neutrophils CSF Lymphocytes CSF Eosinophils CSF Basophils CSF Macrophages CSF Plasma Cells CSF Diff Comment CSF Comment CSF Glucose CSF Total Protein Opiates Screen Methadone Screen Barbiturate Screen Phencyclidine Screen Ur Amphetamines Screen MDMA (Ecstasy) Screen Benzodiazepines Screen Cocaine Screen U Marijuana (THC) Screen SHARAN M-Naveed Pending AJ Screen Pending c-ANCA Proteinase 3 (PR3) p-ANCA Atypical p-ANCA Myeloperoxidase Ab 11/01/17 11/01/17 11/01/17 07:50 07:50 09:55 Schistocytes ESR 71 H Retic Count 0.52 Haptoglobin PT with INR INR ABG pH ABG pCO2 at Pt Temp ABG pO2 at Pt Temp ABG HCO3 ABG O2 Sat (Measured) ABG O2 Content ABG Base Excess VBG pH POC VBG pCO2 POC VBG pO2 Mixed VBG HCO3 Sodium Potassium Creatinine Calcium Total Bilirubin Direct Bilirubin AST ALT LD Total Creatine Kinase CK-MB (CK-2) Troponin I Total Protein Urine Bacteria Urine Osmolality U Random Total Protein 275 H Ur Random Sodium 32 Ur Random Potassium 17.5 Ur Random Chloride 17 Ur Random Urea Nitrogn 351 Urine Creatinine 158.0 CSF Appearance CSF Color CSF WBC CSF RBC CSF Neutrophils CSF Lymphocytes CSF Eosinophils CSF Basophils CSF Macrophages CSF Plasma Cells CSF Diff Comment CSF Comment CSF Glucose CSF Total Protein Opiates Screen Methadone Screen Barbiturate Screen Phencyclidine Screen Ur Amphetamines Screen MDMA (Ecstasy) Screen Benzodiazepines Screen Cocaine Screen U Marijuana (THC) Screen SHARAN M-Naveed AJ Screen c-ANCA Proteinase 3 (PR3) p-ANCA Atypical p-ANCA Myeloperoxidase Ab 11/01/17 11/01/17 11/01/17 09:55 10:10 10:31 Schistocytes ESR Retic Count Haptoglobin PT with INR INR ABG pH ABG pCO2 at Pt Temp ABG pO2 at Pt Temp ABG HCO3 ABG O2 Sat (Measured) ABG O2 Content ABG Base Excess VBG pH POC VBG pCO2 POC VBG pO2 Mixed VBG HCO3 Sodium 131 L Potassium 3.7 Creatinine Calcium 6.9 L* Total Bilirubin 1.9 H Direct Bilirubin AST 382 H ALT 224 H LD Total Creatine Kinase CK-MB (CK-2) Troponin I Total Protein Urine Bacteria Urine Osmolality 305 U Random Total Protein Ur Random Sodium Ur Random Potassium Ur Random Chloride Ur Random Urea Nitrogn Urine Creatinine CSF Appearance CSF Color CSF WBC CSF RBC CSF Neutrophils CSF Lymphocytes CSF Eosinophils CSF Basophils CSF Macrophages CSF Plasma Cells CSF Diff Comment CSF Comment CSF Glucose CSF Total Protein Opiates Screen Negative Methadone Screen Negative Barbiturate Screen Negative Phencyclidine Screen Negative Ur Amphetamines Screen Negative MDMA (Ecstasy) Screen Negative Benzodiazepines Screen Negative Cocaine Screen Negative U Marijuana (THC) Screen Positive SHARAN M-Naveed AJ Screen c-ANCA Proteinase 3 (PR3) p-ANCA Atypical p-ANCA Myeloperoxidase Ab 11/01/17 11/01/17 11/01/17 12:50 12:59 18:00 Schistocytes ESR Retic Count Haptoglobin PT with INR INR ABG pH 7.36 ABG pCO2 at Pt Temp 28.9 L ABG pO2 at Pt Temp 86.8 ABG HCO3 16.0 L ABG O2 Sat (Measured) 96.5 ABG O2 Content 18.2 ABG Base Excess -7.7 L VBG pH POC VBG pCO2 POC VBG pO2 Mixed VBG HCO3 Sodium 134 L 131 L Potassium 3.9 4.2 Creatinine 8.7 H* 8.9 H* Calcium 6.8 L* 7.3 L Total Bilirubin 1.5 H Direct Bilirubin AST 354 H ALT 219 H LD Total Creatine Kinase CK-MB (CK-2) Troponin I Total Protein Urine Bacteria Urine Osmolality U Random Total Protein Ur Random Sodium Ur Random Potassium Ur Random Chloride Ur Random Urea Nitrogn Urine Creatinine CSF Appearance CSF Color CSF WBC CSF RBC CSF Neutrophils CSF Lymphocytes CSF Eosinophils CSF Basophils CSF Macrophages CSF Plasma Cells CSF Diff Comment CSF Comment CSF Glucose CSF Total Protein Opiates Screen Methadone Screen Barbiturate Screen Phencyclidine Screen Ur Amphetamines Screen MDMA (Ecstasy) Screen Benzodiazepines Screen Cocaine Screen U Marijuana (THC) Screen SHARAN M-Naveed AJ Screen c-ANCA Proteinase 3 (PR3) p-ANCA Atypical p-ANCA Myeloperoxidase Ab 11/02/17 11/05/17 11/08/17 05:30 05:30 05:15 Schistocytes ESR Retic Count Haptoglobin PT with INR 15.40 H INR 1.36 H ABG pH ABG pCO2 at Pt Temp ABG pO2 at Pt Temp ABG HCO3 ABG O2 Sat (Measured) ABG O2 Content ABG Base Excess VBG pH POC VBG pCO2 POC VBG pO2 Mixed VBG HCO3 Sodium Potassium Creatinine Calcium Total Bilirubin Direct Bilirubin AST ALT LD Total Creatine Kinase 25505 H 5188 H CK-MB (CK-2) Troponin I Total Protein Urine Bacteria Urine Osmolality U Random Total Protein Ur Random Sodium Ur Random Potassium Ur Random Chloride Ur Random Urea Nitrogn Urine Creatinine CSF Appearance CSF Color CSF WBC CSF RBC CSF Neutrophils CSF Lymphocytes CSF Eosinophils CSF Basophils CSF Macrophages CSF Plasma Cells CSF Diff Comment CSF Comment CSF Glucose CSF Total Protein Opiates Screen Methadone Screen Barbiturate Screen Phencyclidine Screen Ur Amphetamines Screen MDMA (Ecstasy) Screen Benzodiazepines Screen Cocaine Screen U Marijuana (THC) Screen SHARAN M-Naveed AJ Screen c-ANCA Proteinase 3 (PR3) p-ANCA Atypical p-ANCA Myeloperoxidase Ab ASSESSMENT AND PLAN: This is a 32 year old man with no significant history who presented to the ED with change of mental status. # Severe sepsis secondary to Legionella pneumonia on Levaquin continue as per ID , Sputum Legionella culture pending # Acute metabolic encephalopathy secondary to severe sepsis due Legionella Improving # Acute kidney injury Urine output improving, Continue HD as per nephrology, Continue Lasix IV, Permcath placement # Anemia possible due to renal failure as well..also secondary to sepsis and IV fluid, Hemoglobin is stable # Rhabdomyolysis improving 5ooo, will repeat the level in am # Hepatic transaminitis secondary to sepsis Improving # Thrombocytopenia Improving due to sepsis # Large bowel ileus Clinically improved # Hyponatremia Improved # Hypokalemia Improved # Demand ischemia secondary to sepsis Disposition Physical therapy, May need rehab at discharge PT ordered 2x per day
--- NOTE | 2017-11-10 13:12 | PN ---
Progress Note (short form) - Note Progress Note: Renal Follow up for [place] Pt seen and examined at the bedside no acute complaints coughing a little on regualr liquids for dialysis today making urine Vital Signs Temperature 98.2 F 11/10/17 06:00 Pulse Rate 93 H 11/10/17 06:00 Respiratory Rate 18 11/10/17 06:00 Blood Pressure 141/87 11/10/17 06:00 O2 Sat by Pulse Oximetry (%) 97 11/09/17 21:00 Intake & Output 11/07/17 11/08/17 11/09/17 11/10/17 23:59 23:59 23:59 23:59 Intake Total 4120 1713 1750 200 Output Total 625 1550 1250 900 Balance 3495 163 500 -700 Weight 103.737 kg 107.048 kg 107.32 kg NAD awake and alert speech is slurred RRR, No M/R Dec BS at lung bases soft NT/ND Trace LE edema CBC, BMP 11/09/17 07:41 11/09/17 07:41 Current Medications Furosemide (Lasix Injection -) 100 mg IVPB DAILY [facility] Levofloxacin (Levaquin 250 Mg Premixed Ivpb -) 250 mg in 50 mls @ 50 mls/hr IVPB DAILY@1000 [facility] Sodium Chloride (Normal Saline -) 250 mls @ 3,000 mls/hr IV PRN PRN PRN Reason: Hypotension during Dialysis Ondansetron HCl (Zofran Injection) 4 mg IVPUSH Q6H PRN PRN Reason: NAUSEA Pantoprazole Sodium (Protonix Iv) 40 mg IVPUSH DAILY [facility] 32 year old gentleman with no significant PMhx presented with AMS/generalized weakness and found to have oliguric renal failure. 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
[2017-11-10 13:25] LABS: HEMATOCRIT 27.2 % (35.4-49); HEMOGLOBIN 9.3 GM/dL (11.7-16.9); MCH 30.5 pg (25.7-33.7); MCHC 34.1 g/dl (32.0-35.9); MEAN CELL VOLUME 89.4 fl (80-96); MEAN PLT VOLUME 7.8 fl (7.5-11.1); PLATELET COUNT 403 K/MM3 (134-434); RBC 3.04 M/mm3 (4.00-5.60); RDW 13.6 % (11.9-15.9)
[2017-11-10 13:31] VITALS: BMI 30.2
[2017-11-10 13:47] LABS: ALBUMIN 2.1 g/dl (3.4-5.0); ANION GAP 9 (8-16); BILIRUBIN,TOTAL 0.6 mg/dL (0.2-1.0); BLOOD UREA NITROGEN 71 mg/dL (7-18); CALCIUM 8.3 mg/dL (8.5-10.1); CHLORIDE 100 mmol/L (98-107); CO2 28 mmol/L (21-32); GLUCOSE,RANDOM 113 mg/dL (74-106); MAGNESIUM 2.3 mg/dL (1.8-2.4); POTASSIUM 4.2 mmol/L (3.5-5.1); SGOT/AST 99 U/L (15-37); SGPT/ALT 103 U/L (12-78); SODIUM 137 mmol/L (136-145)
[2017-11-10 13:48] LABS: ALK PHOS 128 U/L (45-117); TOT PROT 6.6 g/dl (6.4-8.2)
[2017-11-10 14:12] LABS: CREATININE 8.3 mg/dL (0.7-1.3)
[2017-11-10] MEDS ORDERED: PT OWN MED DRAWER 7, Y5N ONE (17:07)
[2017-11-10] MEDS: FUROSEMIDE 100 MG/10 ML INJECTABLE VIAL IVPB SCH (17:15)
--- NOTE | 2017-11-10 17:37 | PN ---
Progress Note (short form) - Note Progress Note: permacath yesterday on HD now making urine! 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 Vital Signs Period Temp Pulse Resp BP Sys/Dangelo Pulse Ox Last 24 Hr 97.9 F-98.3 F 20-113 18-96 135-170/82-100 97-97 cor-rrr lungs clear abd soft, nt ext no edema CBC, BMP 11/10/17 12:50 Microbiology 11/04/17 10:20 Transtracheal Aspiration Legionella Culture - Preliminary 11/06/17 13:25 Stool Shiga Toxin Test - Preliminary 11/03/17 15:20 Blood - Shiley Catheter Blood Culture - Final NO GROWTH AFTER 5 DAYS INCUBATION 11/03/17 15:20 Blood - Peripheral Venous Blood Culture - Final NO GROWTH AFTER 5 DAYS INCUBATION 10/31/17 18:00 Blood - Peripheral Venous Blood Culture - Final NO GROWTH AFTER 5 DAYS INCUBATION 10/31/17 18:05 Blood - Peripheral Venous Blood Culture - Final NO GROWTH AFTER 5 DAYS INCUBATION 11/02/17 05:30 Serum Legionella Serology - Final 10/31/17 23:30 Cerebral Spinal Fluid - Lumbar Puncture Gram Stain - Final 10/31/17 23:30 Cerebral Spinal Fluid - Lumbar Puncture CSF Culture - Final 10/31/17 18:30 Urine - Urine - Catheterized Urine Culture - Final NO GROWTH OBTAINED 11/01/17 09:00 Urine - Urine Sunshine Legionella Antigen - Final 11/01/17 09:00 Urine - Urine Sunshine Streptococcus pneumoniae Antigen (M - Final a/p legionella pneumonia-day #9 antibiotics acute renal failure- rhabdomyolysis active-improved toxic-metabolic encephalopathy-about the same overall slowly improving Problem List - Problems (1) Pneumonia Code(s): J18.9 - PNEUMONIA, UNSPECIFIED ORGANISM (2) Acute kidney failure Code(s): N17.9 - ACUTE KIDNEY FAILURE, UNSPECIFIED Qualifiers: Acute renal failure type: unspecified Qualified Code(s): N17.9 - Acute kidney failure, unspecified (3) Altered mental status Code(s): R41.82 - ALTERED MENTAL STATUS, UNSPECIFIED Qualifiers: Altered mental status type: disorientation Qualified Code(s): R41.0 - Disorientation, unspecified (4) Elevated LFTs Code(s): R94.5 - ABNORMAL RESULTS OF LIVER FUNCTION STUDIES
[2017-11-10 17:40] LABS: CREATININE 3.3 mg/dL (0.7-1.3)
[2017-11-10] MEDS: PANTOPRAZOLE SODIUM 40 MG VIAL IVPUSH SCH (17:45)
[2017-11-11 07:38] LABS: HEMATOCRIT 23.9 % (35.4-49); HEMOGLOBIN 8.3 GM/dL (11.7-16.9); MCH 30.8 pg (25.7-33.7); MCHC 34.9 g/dl (32.0-35.9); MEAN CELL VOLUME 88.5 fl (80-96); MEAN PLT VOLUME 6.8 fl (7.5-11.1); PLATELET COUNT 353 K/MM3 (134-434); RDW 13.3 % (11.9-15.9); WHITE BLOOD COUNT 7.5 K/mm3 (4.0-10.0)
[2017-11-11 08:18] LABS: ALBUMIN 2.3 g/dl (3.4-5.0); ANION GAP 12 (8-16); BLOOD UREA NITROGEN 46 mg/dL (7-18); CALCIUM 8.1 mg/dL (8.5-10.1); CHLORIDE 100 mmol/L (98-107); CO2 30 mmol/L (21-32); CREATININE 6.2 mg/dL (0.7-1.3); GLUCOSE,RANDOM 89 mg/dL (74-106); MAGNESIUM 2.1 mg/dL (1.8-2.4); PHOSPHOROUS 7.2 mg/dL (2.5-4.9); POTASSIUM 3.9 mmol/L (3.5-5.1); SGOT/AST 87 U/L (15-37); SGPT/ALT 88 U/L (12-78); SODIUM 142 mmol/L (136-145)
[2017-11-11 08:20] LABS: ALK PHOS 118 U/L (45-117); BILIRUBIN,TOTAL 0.6 mg/dL (0.2-1.0)
[2017-11-11] MEDS ORDERED: PT OWN MED DRAWER 7, Y5N ONE (09:30)
[2017-11-11] MEDS: PANTOPRAZOLE SODIUM 40 MG VIAL IVPUSH SCH (09:44)
[2017-11-11] MEDS: FUROSEMIDE 100 MG/10 ML INJECTABLE VIAL IVPB SCH (09:44)
--- NOTE | 2017-11-11 12:25 | PN ---
Progress Note (short form) - Note Progress Note: PULMONARY Denies shortness of breath, cough or wheezing. Working with physical therapy. Vital Signs Period Temp Pulse Resp BP Sys/Dangelo Pulse Ox Last 24 Hr 97.8 F-98.9 F 18-113 18-102 135-160/68-100 97-97 Gen: NAD at rest Heart: RRR Lung: decreased breath sounds at the bases Abd: soft, nontender Ext: no edema CBC, BMP 11/11/17 06:52 11/11/17 06:52 Active Medications Furosemide (Lasix Injection -) 100 mg IVPB DAILY [facility] Last Admin: 11/11/17 09:44 Dose: 100 mg Sodium Chloride (Normal Saline -) 250 mls @ 3,000 mls/hr IV PRN PRN PRN Reason: Hypotension during Dialysis Levofloxacin (Levaquin 500 Mg Premixed Ivpb -) 500 mg in 100 mls @ 100 mls/hr IVPB Q2D@1000 [facility]; Protocol Last Admin: 11/11/17 09:44 Dose: 100 mls/hr Pantoprazole Sodium (Protonix Iv) 40 mg IVPUSH DAILY [facility] Last Admin: 11/11/17 09:44 Dose: 40 mg A/P Resolving Legionella Pneumonia Resolving Severe Sepsis Acute Kidney Injury requiring HD Metabolic Acidosis Resolving AMS Thrombocytopenia Hyponatremia Elevated LFTs +Troponins likely Demand Ischemia Resolving Rhabdomyolysis - complete antibiotics per ID - rehab/PT - HD per renal - continue lasix - monitor urine output, creatinine - PO as tolerated - DVT prophylaxis
--- NOTE | 2017-11-11 12:43 | PN ---
Physical Exam: SUBJECTIVE: Patient seen and examined at bedside. No acute events overnight. Requesting to see physical therapy to start walking. Denies any complaints. Voiding well. +BM. Denies blood in urine or stool. OBJECTIVE: Vital Signs Temperature 97.8 F 11/11/17 09:47 Pulse Rate 18 L 11/11/17 09:47 Respiratory Rate 102 H 11/11/17 09:47 Blood Pressure 135/97 11/11/17 09:47 O2 Sat by Pulse Oximetry (%) 97 11/11/17 09:00 GENERAL: AAOx3. NAD. Resting comfortably. Dysarthric. HEAD: AT/NC. No facial droop. Moist mucus membranes. NECK: Trachea midline, full range of motion, supple. LUNGS: CTA B/L. Diminished breath sounds in bilateral lower lung bases. +mild L crackles. HEART: RRR. Normal S1, S2. No murmurs, rubs or gallop noted. ABDOMEN: Soft, nontender, nondistended, normoactive bowel sounds, no guarding, no rebound, no hepatosplenomegaly, no masses. EXTREMITIES: 2+ pulses, warm, well-perfused, no edema. 4/5 muscle strength b/l u /L LE. NEUROLOGICAL: Cranial nerves II through X grossly intact. mildly slurred speech , gait not observed. SKIN: Warm, dry, normal turgor, no rashes or lesions noted. Laboratory Results - last 24 hr CBC, BMP 11/11/17 06:52 11/11/17 06:52 Hepatic Panel Total Bilirubin 0.6 mg/dL (0.2-1.0) 11/11/17 06:52 Direct Bilirubin 0.4 mg/dL (0.0-0.2) H D 11/07/17 05:15 AST 87 U/L (15-37) H 11/11/17 06:52 ALT 88 U/L (12-78) H 11/11/17 06:52 Alkaline Phosphatase 118 U/L (45-117) H D 11/11/17 06:52 Albumin 2.3 g/dl (3.4-5.0) L 11/11/17 06:52 Active Medications Furosemide (Lasix Injection -) 100 mg IVPB DAILY [facility] Last Admin: 11/11/17 09:44 Dose: 100 mg Sodium Chloride (Normal Saline -) 250 mls @ 3,000 mls/hr IV PRN PRN PRN Reason: Hypotension during Dialysis Levofloxacin (Levaquin 500 Mg Premixed Ivpb -) 500 mg in 100 mls @ 100 mls/hr IVPB Q2D@1000 [facility]; Protocol Last Admin: 11/11/17 09:44 Dose: 100 mls/hr Pantoprazole Sodium (Protonix Iv) 40 mg IVPUSH DAILY [facility] Last Admin: 11/11/17 09:44 Dose: 40 mg ASSESSMENT/PLAN: 32M w/ no pmhx admitted to the ICU for Legionella PNA, rhabdomyolysis and ARF. #Pneumonia possibly 2/2 to Legionella; Afebrile. WBC improving. -Per ID: cont Levofloxacin 500 mg Q48H (Day #10 of antibiotics), f/u additional ID recs -Legionella urine positive, serology negative, f/u sputum cx #Toxic Metabolic Encephalopathy; -Pt still with ARF -f/u PT eval -f/u speech and swallow eval; MBS not done yesterday, f/u to see if pt's diet can be advanced -CSF WNL -bcx, ucx negative #nausea/vomiting/constipation; Resolved. -Abd xray showed colonic ileus w/ some contrast in R colon and rectosigmoid. -cont Zofran 4mg IV Q6h -cont Protonix 40mg IV QD #Acute Renal Failure likely 2/2 Rhabdo; Cr 6.2. -HD yesterday -s/p permacath insertion by vasc surg on 11/09 -cont Lasix 100 mg IVPB QD #Acute rhabdomyolysis; etiology unclear -CK trending down; 2092 today -cont to trend CK #Transaminitis; Resolving. LFTs trending down #Mild troponemia; Resolved. #Mild thrombocytopenia; Resolved. #DVT Prophylaxis -Heparin 5000U SQ TID #FEN -no IVf -monitor lytes -dysphagia puree/honey thick liquid; f/u SS eval if diet can be advanced Dispo -cont to monitor on med-surg -Applied for [place] Medicaid, currently applying for rehab, pending approval Visit type - Emergency Visit Emergency Visit: Yes ED Registration Date: 11/01/17 Care time: The patient presented to the Emergency Department on the above date and was hospitalized for further evaluation of their emergent condition. - New Patient This patient is new to me today: No - Critical Care Critical Care patient: No
--- NOTE | 2017-11-11 14:18 | PN ---
Progress Note (short form) - Note Progress Note: Renal Follow up for [place] Pt seen and examined at the bedside no aucte complaints making urine denies any sob, cp, abd pain, N/V/D Vital Signs Temperature 97.8 F 11/11/17 09:47 Pulse Rate 18 L 11/11/17 09:47 Respiratory Rate 102 H 11/11/17 09:47 Blood Pressure 135/97 11/11/17 09:47 O2 Sat by Pulse Oximetry (%) 97 11/11/17 09:00 Intake & Output 11/08/17 11/09/17 11/10/17 11/11/17 23:59 23:59 23:59 23:59 Intake Total 1713 1750 250 150 Output Total 1550 1250 2100 1200 Balance 163 500 -1850 -1050 Weight 107.048 kg 107.32 kg NAD awake and alert speech is slow RRR, No M/R Dec BS at lung bases soft NT/ND Trace LE edema CBC, BMP 11/11/17 06:52 11/11/17 06:52 Current Medications Furosemide (Lasix Injection -) 100 mg IVPB DAILY [facility] Last Admin: 11/11/17 09:44 Dose: 100 mg Sodium Chloride (Normal Saline -) 250 mls @ 3,000 mls/hr IV PRN PRN PRN Reason: Hypotension during Dialysis Levofloxacin (Levaquin 500 Mg Premixed Ivpb -) 500 mg in 100 mls @ 100 mls/hr IVPB Q2D@1000 [facility]; Protocol Last Admin: 11/11/17 09:44 Dose: 100 mls/hr Pantoprazole Sodium (Protonix Iv) 40 mg IVPUSH DAILY [facility] Last Admin: 11/11/17 09:44 Dose: 40 mg 32 year old gentleman with no significant PMhx presented with AMS/generalized weakness and found to have oliguric renal failure. #Acute Renal Injury secondary to legionella infection + Pigment injury from Rhabdo s/p dialysis yesterday urine output is improving but BUN/Cr has yet to slope downwards for dialysis tomorrow change IV lasix to PO torsemide will need short term outpatient dialysis Rojas Edmondson DO
[2017-11-11] MEDS ORDERED: SODIUM CHLORIDE 250 ML IV PRN (14:19)
--- NOTE | 2017-11-11 15:14 | PN ---
Progress Note, Physician History of Present Illness: Awake, alert in bed Dysarthric Denies pain Denies chest pain/ dyspnea / cough Afebrile WBC WNL - Current Medication List Current Medications: Active Medications Sodium Chloride (Normal Saline -) 250 mls @ 3,000 mls/hr IV PRN PRN PRN Reason: Hypotension during Dialysis Levofloxacin (Levaquin 500 Mg Premixed Ivpb -) 500 mg in 100 mls @ 100 mls/hr IVPB Q2D@1000 [facility]; Protocol Last Admin: 11/11/17 09:44 Dose: 100 mls/hr Sodium Chloride (Normal Saline -) 250 mls @ 3,000 mls/hr IV PRN PRN PRN Reason: Hypotension during Dialysis Stop: 11/12/17 14:19 Pantoprazole Sodium (Protonix Iv) 40 mg IVPUSH DAILY [facility] Last Admin: 11/11/17 09:44 Dose: 40 mg Torsemide (Demadex -) 80 mg PO DAILY [facility] - Objective Vital Signs: Vital Signs Temperature 97.8 F 11/11/17 14:38 Pulse Rate 19 L 11/11/17 14:38 Respiratory Rate 101 H 11/11/17 14:38 Blood Pressure 139/83 11/11/17 14:38 O2 Sat by Pulse Oximetry (%) 97 11/11/17 09:00 Constitutional: Yes: No Distress Eyes: Yes: Conjunctiva Clear Cardiovascular: Yes: Regular Rate and Rhythm, S1, S2 Respiratory: Yes: CTA Bilaterally Gastrointestinal: Yes: Normal Bowel Sounds, Soft. No: Tenderness Extremities: No: Calf Tenderness Labs: CBC, BMP 11/11/17 06:52 11/11/17 06:52 INR, PTT INR 1.36 (0.83-1.09) H 11/02/17 05:30 Assessment/Plan Legionella pneumonia Toxic metabolic encephalopathy Renal failure Elevated LFTs Continue levaquin, adjusted for renal failure
--- NOTE | 2017-11-11 17:20 | PN ---
Teaching Attending Note Name of Resident: Nicci Gordon ATTENDING PHYSICIAN STATEMENT I saw and evaluated the patient. I reviewed the resident's note and discussed the case with the resident. I agree with the resident's findings and plan as documented. SUBJECTIVE: No new changes. OBJECTIVE: Vital Signs Temperature 97.8 F 11/11/17 14:38 Pulse Rate 19 L 11/11/17 14:38 Respiratory Rate 101 H 11/11/17 14:38 Blood Pressure 139/83 11/11/17 14:38 O2 Sat by Pulse Oximetry (%) 97 11/11/17 09:00 CBCD WBC 7.5 K/mm3 (4.0-10.0) 11/11/17 06:52 RBC 2.70 M/mm3 (4.00-5.60) L 11/11/17 06:52 Hgb 8.3 GM/dL (11.7-16.9) L 11/11/17 06:52 Hct 23.9 % (35.4-49) L 11/11/17 06:52 MCV 88.5 fl (80-96) 11/11/17 06:52 MCHC 34.9 g/dl (32.0-35.9) 11/11/17 06:52 RDW 13.3 % (11.9-15.9) 11/11/17 06:52 Plt Count 353 K/MM3 (134-434) 11/11/17 06:52 MPV 6.8 fl (7.5-11.1) L D 11/11/17 06:52 CMP Sodium 142 mmol/L (136-145) 11/11/17 06:52 Potassium 3.9 mmol/L (3.5-5.1) 11/11/17 06:52 Chloride 100 mmol/L (98-107) 11/11/17 06:52 Carbon Dioxide 30 mmol/L (21-32) 11/11/17 06:52 Anion Gap 12 (8-16) 11/11/17 06:52 BUN 46 mg/dL (7-18) H 11/11/17 06:52 Creatinine 6.2 mg/dL (0.7-1.3) H 11/11/17 06:52 Creat Clearance w eGFR 10.61 (>60) 11/11/17 06:52 Random Glucose 89 mg/dL (74-106) D 11/11/17 06:52 Calcium 8.1 mg/dL (8.5-10.1) L 11/11/17 06:52 Total Bilirubin 0.6 mg/dL (0.2-1.0) 11/11/17 06:52 AST 87 U/L (15-37) H 11/11/17 06:52 ALT 88 U/L (12-78) H 11/11/17 06:52 Alkaline Phosphatase 118 U/L (45-117) H D 11/11/17 06:52 Total Protein 6.0 g/dl (6.4-8.2) L 11/11/17 06:52 Albumin 2.3 g/dl (3.4-5.0) L 11/11/17 06:52 CARDIAC ENZYMES Creatine Kinase 2093 IU/L (39-308) H 11/11/17 06:52 Troponin I 0.21 ng/ml (0.00-0.05) H 11/04/17 05:30 Current Medications Generic Name Dose Route Start Last Admin Trade Name Freq PRN Reason Stop Dose Admin Sodium Chloride 250 mls @ 3,000 mls/hr 11/09/17 16:21 Normal Saline - IV PRN PRN Hypotension during Dialysis Levofloxacin 500 mg in 100 mls @ 100 mls/hr 11/11/17 10:00 11/11/17 09:44 Levaquin 500 Mg Premixed Ivpb - IVPB 100 mls/hr Q2D@1000 [facility] Administration Protocol Sodium Chloride 250 mls @ 3,000 mls/hr 11/11/17 14:19 Normal Saline - IV 11/12/17 14:19 PRN PRN Hypotension during Dialysis Pantoprazole Sodium 40 mg 11/10/17 10:00 11/11/17 09:44 Protonix Iv IVPUSH 40 mg DAILY [facility] Administration Torsemide 80 mg 11/12/17 10:00 Demadex - PO DAILY [facility] Home Medications Medication Instructions Recorded NK [No Known Home Medication] 10/31/17 Microbiology 11/04/17 10:20 Transtracheal Aspiration Legionella Culture - Preliminary 11/06/17 13:25 Stool Shiga Toxin Test - Preliminary 11/03/17 15:20 Blood - Shiley Catheter Blood Culture - Final NO GROWTH AFTER 5 DAYS INCUBATION 11/03/17 15:20 Blood - Peripheral Venous Blood Culture - Final NO GROWTH AFTER 5 DAYS INCUBATION 10/31/17 18:00 Blood - Peripheral Venous Blood Culture - Final NO GROWTH AFTER 5 DAYS INCUBATION 10/31/17 18:05 Blood - Peripheral Venous Blood Culture - Final NO GROWTH AFTER 5 DAYS INCUBATION 11/02/17 05:30 Serum Legionella Serology - Final 10/31/17 23:30 Cerebral Spinal Fluid - Lumbar Puncture Gram Stain - Final 10/31/17 23:30 Cerebral Spinal Fluid - Lumbar Puncture CSF Culture - Final 10/31/17 18:30 Urine - Urine - Catheterized Urine Culture - Final NO GROWTH OBTAINED 11/01/17 09:00 Urine - Urine Sunshine Legionella Antigen - Final 11/01/17 09:00 Urine - Urine Sunshine Streptococcus pneumoniae Antigen (M - Final PE: per resident's note ASSESSMENT AND PLAN: This is a 32 year old man with no significant history who presented to the ED with change of mental status. #s/p Severe sepsis secondary to Legionella pneumonia on Levaquin 500mg day # 10 continue as per ID # Acute metabolic encephalopathy secondary to severe sepsis due Legionella Improving # Acute kidney injury Urine output improving, On HD continue , Continue Lasix IV , Permcath # Anemia possible due to renal failure as well..also secondary to sepsis and IV fluid, Hemoglobin is stable # Rhabdomyolysis improving 5ooo-->1999 today, will continue to monitor # Hepatic transaminitis secondary to sepsis Improving # Thrombocytopenia Improved # Large bowel ileus Clinically improved # Hyponatremia Improved # Hypokalemia Improved # Demand ischemia secondary to sepsis Disposition Physical therapy, May need rehab at discharge PT ordered 2x per day
[2017-11-12 08:25] LABS: HEMATOCRIT 25.5 % (35.4-49); HEMOGLOBIN 8.7 GM/dL (11.7-16.9); MCH 30.7 pg (25.7-33.7); MCHC 34.2 g/dl (32.0-35.9); MEAN CELL VOLUME 89.6 fl (80-96); MEAN PLT VOLUME 6.9 fl (7.5-11.1); PLATELET COUNT 404 K/MM3 (134-434); RBC 2.85 M/mm3 (4.00-5.60); RDW 13.3 % (11.9-15.9); WHITE BLOOD COUNT 6.9 K/mm3 (4.0-10.0)
[2017-11-12 09:01] LABS: ALBUMIN 2.4 g/dl (3.4-5.0); ANION GAP 13 (8-16); BLOOD UREA NITROGEN 58 mg/dL (7-18); CALCIUM 8.8 mg/dL (8.5-10.1); CHLORIDE 102 mmol/L (98-107); CO2 28 mmol/L (21-32); GLUCOSE,RANDOM 80 mg/dL (74-106); SGPT/ALT 80 U/L (12-78); SODIUM 143 mmol/L (136-145)
[2017-11-12 09:03] LABS: ALK PHOS 120 U/L (45-117); BILIRUBIN,TOTAL 0.7 mg/dL (0.2-1.0); CREATININE 7.3 mg/dL (0.7-1.3); SGOT/AST 79 U/L (15-37); TOT PROT 6.4 g/dl (6.4-8.2)
--- NOTE | 2017-11-12 09:56 | PN ---
Physical Exam: SUBJECTIVE: Patient seen and examined at bedside. No acute events overnight. OBJECTIVE: Vital Signs Temperature 98.3 F 11/12/17 08:20 Pulse Rate 80 11/12/17 08:56 Respiratory Rate 18 11/12/17 08:56 Blood Pressure 132/86 11/12/17 08:56 O2 Sat by Pulse Oximetry (%) 97 11/11/17 21:00 GENERAL: AAOx3. NAD. Resting comfortably. Dysarthric. HEAD: AT/NC. No facial droop. Moist mucus membranes. NECK: Trachea midline, full range of motion, supple. LUNGS: CTA B/L. Diminished breath sounds in bilateral lower lung bases. +mild L crackles. HEART: RRR. Normal S1, S2. No murmurs, rubs or gallop noted. ABDOMEN: Soft, nontender, nondistended, normoactive bowel sounds, no guarding, no rebound, no hepatosplenomegaly, no masses. EXTREMITIES: 2+ pulses, warm, well-perfused, no edema. 4/5 muscle strength b/l u /L LE. NEUROLOGICAL: Cranial nerves II through X grossly intact. mildly slurred speech , gait not observed. SKIN: Warm, dry, normal turgor, no rashes or lesions noted. Laboratory Results - last 24 hr CBC, BMP 11/12/17 07:00 11/12/17 07:00 Active Medications Sodium Chloride (Normal Saline -) 250 mls @ 3,000 mls/hr IV PRN PRN PRN Reason: Hypotension during Dialysis Levofloxacin (Levaquin 500 Mg Premixed Ivpb -) 500 mg in 100 mls @ 100 mls/hr IVPB Q2D@1000 [facility]; Protocol Last Admin: 11/11/17 09:44 Dose: 100 mls/hr Sodium Chloride (Normal Saline -) 250 mls @ 3,000 mls/hr IV PRN PRN PRN Reason: Hypotension during Dialysis Stop: 11/12/17 14:19 Pantoprazole Sodium (Protonix Iv) 40 mg IVPUSH DAILY [facility] Last Admin: 11/11/17 09:44 Dose: 40 mg Torsemide (Demadex -) 80 mg PO DAILY [facility] IMAGING: Head CT: No evidence of acute intracranial hemmorhage, edema, midline shift, mass effect, or skull fx. No CT evidence of acute territorial infarction. Abd U/S: Borderline hepatosplenomegaly w/ no evidence of acute pathology within the abdomen. Liver is borderline enlarged measuring 17.6 cm in craniocaudad dimension. It is homogenous in teexture. There is an echogenic mass within the L lobe measuring 2.cm. This is consistent w/ a hemangioma. No additional intrahepatic masses are identified. The portal flow is documented within the main portal vein. CT Abd/Pel w/o contrast: 1. Extensive L lower lobe consolidation suspicious for acute pna. There is a lesser degree of consolidation/atelectasis within the R lung base. 2. Limited study w/ no gross evidence of acute pathology within the abdomen or pelvis. Abd xray: Colonic ileus w/ some contrast in R colon and rectosigmoid. Free air not seen. ASSESSMENT/PLAN: 32M w/ no pmhx admitted to the ICU for Legionella PNA, rhabdomyolysis and ARF. #Pneumonia possibly 2/2 to Legionella; Afebrile. No leukocytosis. -Per ID: cont Levofloxacin 500 mg Q48H (Day #11 of antibiotics) -Legionella urine positive, serology negative, f/u sputum cx #Toxic Metabolic Encephalopathy -Pt still with ARF -f/u PT eval; Ambulating 10 feet as of yesterday, cont PT BID -CSF WNL -bcx, ucx negative #Acute Renal Failure likely 2/2 Rhabdo; Cr 7.3 -HD scheduled for today, repeat BMP -s/p permacath insertion by vasc surg on 11/09 -Per nephro: switch from IV Lasix to Torsemide 80 mg PO QD #Acute rhabdomyolysis -CK trending down; 2092 -cont to trend CK #nausea/vomiting/constipation; Resolved. -Abd xray showed colonic ileus w/ some contrast in R colon and rectosigmoid #Transaminitis; Resolving. LFTs trending down #Mild troponemia; Resolved. #Mild thrombocytopenia; Resolved. #DVT Prophylaxis -Heparin 5000U SQ TID #GI PPx -cont Protonix 40 mg IVP QD #FEN -no IVf -monitor lytes -dysphagia ground/honey thick Dispo -cont to monitor on med-surg -Applied for [place] Medicaid, currently applying for rehab, pending approval; will need short-term outpatient dialysis Visit type - Emergency Visit Emergency Visit: Yes ED Registration Date: 11/01/17 Care time: The patient presented to the Emergency Department on the above date and was hospitalized for further evaluation of their emergent condition. - New Patient This patient is new to me today: No - Critical Care Critical Care patient: No
[2017-11-12 10:54] LABS: PHOSPHOROUS 7.9 mg/dL (2.5-4.9)
--- NOTE | 2017-11-12 11:02 | PN ---
Progress Note, [employer] - Note Progress Note: Selected Entries 11/11/17 11/11/17 11/11/17 02:00 06:00 09:47 Supper Temperature 98.9 F 98.1 F 97.8 F 11/11/17 11/11/17 11/11/17 14:38 19:00 23:00 Supper 100% Temperature 97.8 F 97.8 F 97.8 F 11/12/17 11/12/17 11/12/17 02:00 06:00 08:20 Supper Temperature 98.3 F 97.9 F 98.3 F Laboratory Tests 11/12/17 07:00 WBC 6.9 Breakfast hardly touched. Pt wasnt hungry before dialysis. Diet upgraded based on repeat MBS, Diet upgraded to chopped/nectar liquid. Add tuna/egg salad/chicken salad no celery/onions.
[2017-11-12] MEDS ORDERED: PT OWN MED DRAWER 7, Y5N ONE (12:34)
[2017-11-12] MEDS: PANTOPRAZOLE SODIUM 40 MG VIAL IVPUSH SCH (12:34)
[2017-11-12] MEDS: TORSEMIDE 20 MG TABLET (FP) PO SCH (12:35)
--- NOTE | 2017-11-12 13:42 | PN ---
Progress Note (short form) - Note Progress Note: Renal Follow up for [place] Pt seen and examined at the bedside s/p dialysis this am w/o complicatoin making urine no acute complaints denies any sob, cp, abd pain, N/V/D walking with assistance Vital Signs Temperature 98.3 F 11/12/17 08:20 Pulse Rate 82 11/12/17 12:26 Respiratory Rate 18 11/12/17 12:26 Blood Pressure 129/81 11/12/17 12:26 O2 Sat by Pulse Oximetry (%) 97 11/12/17 09:00 Intake & Output 11/09/17 11/10/17 11/11/17 11/12/17 23:59 23:59 23:59 23:59 Intake Total 1750 250 150 360 Output Total 1250 2100 2600 1400 Balance 500 -1850 -2450 -1040 Weight 107.048 kg 107.32 kg 97.069 kg NAD awake and alert RRR, No M/R CTA soft NT/ND Trace LE edema CBC, BMP 11/12/17 07:00 11/12/17 07:00 Current Medications Sodium Chloride (Normal Saline -) 250 mls @ 3,000 mls/hr IV PRN PRN PRN Reason: Hypotension during Dialysis Levofloxacin (Levaquin 500 Mg Premixed Ivpb -) 500 mg in 100 mls @ 100 mls/hr IVPB Q2D@1000 [facility]; Protocol Last Admin: 11/11/17 09:44 Dose: 100 mls/hr Sodium Chloride (Normal Saline -) 250 mls @ 3,000 mls/hr IV PRN PRN PRN Reason: Hypotension during Dialysis Stop: 11/12/17 14:19 Pantoprazole Sodium (Protonix Iv) 40 mg IVPUSH DAILY [facility] Last Admin: 11/12/17 12:34 Dose: 40 mg Torsemide (Demadex -) 80 mg PO DAILY [facility] Last Admin: 11/12/17 12:35 Dose: 80 mg 32 year old gentleman with no significant PMhx presented with AMS/generalized weakness and found to have oliguric renal failure. #Acute Renal Injury secondary to legionella infection + Pigment injury from Rhabdo s/p dialysis today w/o complication Urine output remains good no overt recovery of renal function yet will continue Hd on MWF schedule until overt recovery renal diet continue oral torsemide Rojas Edmondson DO
--- NOTE | 2017-11-12 14:25 | PN ---
Teaching Attending Note Name of Resident: Nicci Gordon ATTENDING PHYSICIAN STATEMENT I saw and evaluated the patient. I reviewed the resident's note and discussed the case with the resident. I agree with the resident's findings and plan as documented. SUBJECTIVE: Patient continues dysarthria, no acute distress, better OBJECTIVE: Vital Signs Temperature 98.3 F 11/12/17 08:20 Pulse Rate 82 11/12/17 12:26 Respiratory Rate 18 11/12/17 12:26 Blood Pressure 129/81 11/12/17 12:26 O2 Sat by Pulse Oximetry (%) 97 11/12/17 09:00 CBCD WBC 6.9 K/mm3 (4.0-10.0) 11/12/17 07:00 RBC 2.85 M/mm3 (4.00-5.60) L 11/12/17 07:00 Hgb 8.7 GM/dL (11.7-16.9) L 11/12/17 07:00 Hct 25.5 % (35.4-49) L 11/12/17 07:00 MCV 89.6 fl (80-96) 11/12/17 07:00 MCHC 34.2 g/dl (32.0-35.9) 11/12/17 07:00 RDW 13.3 % (11.9-15.9) 11/12/17 07:00 Plt Count 404 K/MM3 (134-434) 11/12/17 07:00 MPV 6.9 fl (7.5-11.1) L 11/12/17 07:00 CMP Sodium 143 mmol/L (136-145) 11/12/17 07:00 Potassium 4.0 mmol/L (3.5-5.1) 11/12/17 07:00 Chloride 102 mmol/L (98-107) 11/12/17 07:00 Carbon Dioxide 28 mmol/L (21-32) 11/12/17 07:00 Anion Gap 13 (8-16) 11/12/17 07:00 BUN 58 mg/dL (7-18) H 11/12/17 07:00 Creatinine 7.3 mg/dL (0.7-1.3) H 11/12/17 07:00 Creat Clearance w eGFR 8.79 (>60) 11/12/17 07:00 Random Glucose 80 mg/dL (74-106) 11/12/17 07:00 Calcium 8.8 mg/dL (8.5-10.1) 11/12/17 07:00 Total Bilirubin 0.7 mg/dL (0.2-1.0) 11/12/17 07:00 AST 79 U/L (15-37) H 11/12/17 07:00 ALT 80 U/L (12-78) H 11/12/17 07:00 Alkaline Phosphatase 120 U/L (45-117) H 11/12/17 07:00 Total Protein 6.4 g/dl (6.4-8.2) 11/12/17 07:00 Albumin 2.4 g/dl (3.4-5.0) L 11/12/17 07:00 CARDIAC ENZYMES Creatine Kinase 2093 IU/L (39-308) H 11/11/17 06:52 Troponin I 0.21 ng/ml (0.00-0.05) H 11/04/17 05:30 Current Medications Generic Name Dose Route Start Last Admin Trade Name Freq PRN Reason Stop Dose Admin Sodium Chloride 250 mls @ 3,000 mls/hr 11/09/17 16:21 Normal Saline - IV PRN PRN Hypotension during Dialysis Levofloxacin 500 mg in 100 mls @ 100 mls/hr 11/11/17 10:00 11/11/17 09:44 Levaquin 500 Mg Premixed Ivpb - IVPB 100 mls/hr Q2D@1000 ODILIA Administration Protocol Sodium Chloride 250 mls @ 3,000 mls/hr 11/11/17 14:19 Normal Saline - IV 11/12/17 14:19 PRN PRN Hypotension during Dialysis Pantoprazole Sodium 40 mg 11/10/17 10:00 11/12/17 12:34 Protonix Iv IVPUSH 40 mg DAILY ODILIA Administration Torsemide 80 mg 11/12/17 10:00 11/12/17 12:35 Demadex - PO 80 mg DAILY ODILIA Administration Home Medications Medication Instructions Recorded NK [No Known Home Medication] 10/31/17 Microbiology 11/06/17 13:25 Stool Shiga Toxin Test - Final 11/04/17 10:20 Transtracheal Aspiration Legionella Culture - Preliminary 11/03/17 15:20 Blood - Shiley Catheter Blood Culture - Final NO GROWTH AFTER 5 DAYS INCUBATION 11/03/17 15:20 Blood - Peripheral Venous Blood Culture - Final NO GROWTH AFTER 5 DAYS INCUBATION 10/31/17 18:00 Blood - Peripheral Venous Blood Culture - Final NO GROWTH AFTER 5 DAYS INCUBATION 10/31/17 18:05 Blood - Peripheral Venous Blood Culture - Final NO GROWTH AFTER 5 DAYS INCUBATION 11/02/17 05:30 Serum Legionella Serology - Final 10/31/17 23:30 Cerebral Spinal Fluid - Lumbar Puncture Gram Stain - Final 10/31/17 23:30 Cerebral Spinal Fluid - Lumbar Puncture CSF Culture - Final 10/31/17 18:30 Urine - Urine - Catheterized Urine Culture - Final NO GROWTH OBTAINED 11/01/17 09:00 Urine - Urine Sunshine Legionella Antigen - Final 11/01/17 09:00 Urine - Urine Sunshine Streptococcus pneumoniae Antigen (M - Final PE: per resident's note ASSESSMENT AND PLAN: This is a 32 year old man with no significant history who presented to the ED with change of mental status. #s/p Severe sepsis secondary to Legionella pneumonia on Levaquin 500mg day # 11 continue as per ID q2 day adjusted renally # Acute metabolic encephalopathy due to Legionella peumonia # Acute kidney injury improving , continue HD on Lasix IV, Permcatmario , nephro on the case # Anemia possible due to renal failure as well..also secondary to sepsis and IV fluid, Hemoglobin is stable # Rhabdomyolysis improving 5ooo-->2000 now, will repeat in am # Hepatic transaminitis improving due to sepsis # Thrombocytopenia Improved # Large bowel ileus Clinically improved # Hyponatremia/hypokalmenia Improved # Demand ischemia secondary to sepsis Disposition Physical therapy, May need rehab at discharge PT ordered 2x per day
[2017-11-13 08:36] LABS: HEMATOCRIT 25.2 % (35.4-49); HEMOGLOBIN 8.6 GM/dL (11.7-16.9); MCH 30.8 pg (25.7-33.7); MCHC 34.3 g/dl (32.0-35.9); MEAN CELL VOLUME 89.8 fl (80-96); MEAN PLT VOLUME 7.1 fl (7.5-11.1); PLATELET COUNT 401 K/MM3 (134-434); RBC 2.81 M/mm3 (4.00-5.60); RDW 13.6 % (11.9-15.9); WHITE BLOOD COUNT 6.9 K/mm3 (4.0-10.0)
[2017-11-13] MEDS: PANTOPRAZOLE SODIUM 40 MG VIAL IVPUSH SCH (09:06)
[2017-11-13 09:26] LABS: CHLORIDE 100 mmol/L (98-107); POTASSIUM 4.1 mmol/L (3.5-5.1); SODIUM 142 mmol/L (136-145)
[2017-11-13 09:33] LABS: ANION GAP 12 (8-16); BLOOD UREA NITROGEN 41 mg/dL (7-18); CALCIUM 8.6 mg/dL (8.5-10.1); CO2 30 mmol/L (21-32); CREATININE 5.4 mg/dL (0.7-1.3); GLUCOSE,RANDOM 89 mg/dL (74-106); PHOSPHOROUS 6.9 mg/dL (2.5-4.9)
[2017-11-13] MEDS: TORSEMIDE 20 MG TABLET (FP) PO SCH (09:53)
--- NOTE | 2017-11-13 15:30 | PN ---
Progress Note (short form) - Note Progress Note: Renal Follow up for [place] Pt seen and examined at the bedside no acute complaints no sob, cp, abd pain, N/V/D appetite is good s/p dialysis yesterday Vital Signs Temperature 98.2 F 11/13/17 15:17 Pulse Rate 95 H 11/13/17 15:17 Respiratory Rate 18 11/13/17 15:17 Blood Pressure 125/79 11/13/17 15:17 O2 Sat by Pulse Oximetry (%) 97 11/12/17 21:00 Intake & Output 11/10/17 11/11/17 11/12/17 11/13/17 23:59 23:59 23:59 23:59 Intake Total 250 150 460 Output Total 2100 2600 2120 600 Balance -1850 -2450 -1660 -600 Weight 107.32 kg 97.069 kg NAD awake and alert RRR, No M/R CTA soft NT/ND Trace LE edema CBC, BMP 11/13/17 07:10 11/13/17 07:10 Current Medications Sodium Chloride (Normal Saline -) 250 mls @ 3,000 mls/hr IV PRN PRN PRN Reason: Hypotension during Dialysis Levofloxacin (Levaquin 500 Mg Premixed Ivpb -) 500 mg in 100 mls @ 100 mls/hr IVPB Q2D@1000 ODILIA; Protocol Last Admin: 11/13/17 09:13 Dose: 100 mls/hr Sodium Chloride (Normal Saline -) 250 mls @ 3,000 mls/hr IV PRN PRN PRN Reason: Hypotension during Dialysis Stop: 11/12/17 14:19 Pantoprazole Sodium (Protonix Iv) 40 mg IVPUSH DAILY ODILIA Last Admin: 11/13/17 09:06 Dose: 40 mg Torsemide (Demadex -) 80 mg PO DAILY ODILIA Last Admin: 11/13/17 09:53 Dose: 80 mg 32 year old gentleman with no significant PMhx presented with AMS/generalized weakness and found to have oliguric renal failure. #Acute Renal Injury secondary to legionella infection + Pigment injury from Rhabdo no acute indication for [employer] today Trend renal function and electrolytes Continue torsemide daily continue Abx as per ID will need continued HD at this time Rojas Edmondson DO
--- NOTE | 2017-11-13 21:12 | PN ---
Physical Exam: SUBJECTIVE: Patient seen and examined Patient is feeling better, wants to go to rehab. Speech is better but feels weak on his loegs. OBJECTIVE: Vital Signs Temperature 98.3 F 11/13/17 18:41 Pulse Rate 94 H 11/13/17 18:41 Respiratory Rate 20 11/13/17 18:41 Blood Pressure 125/82 11/13/17 18:41 O2 Sat by Pulse Oximetry (%) 94 L 11/13/17 09:00 GENERAL: The patient is awake, alert, and fully oriented, in no acute distress. HEAD: Normal with no signs of trauma. EYES: PERRL, extraocular movements intact, sclera anicteric, conjunctiva clear. ENT: Ears normal, oropharynx clear without exudates, moist mucous membranes. NECK: Trachea midline, full range of motion, supple. LUNGS: Breath sounds equal, clear to auscultation bilaterally, no wheezes, no crackles, no accessory muscle use. HEART: Regular rate and rhythm, S1, S2 without murmur, rub or gallop. ABDOMEN: Soft, nontender, nondistended, normoactive bowel sounds, no guarding, no rebound, no hepatosplenomegaly, no masses. EXTREMITIES: 2+ pulses, warm, well-perfused, no edema. NEUROLOGICAL: Cranial nerves II through XII grossly intact. PSYCH: Normal mood, normal affect. SKIN: Warm, dry, normal turgor, no rashes or lesions noted CBCD WBC 6.9 K/mm3 (4.0-10.0) 11/13/17 07:10 RBC 2.81 M/mm3 (4.00-5.60) L 11/13/17 07:10 Hgb 8.6 GM/dL (11.7-16.9) L 11/13/17 07:10 Hct 25.2 % (35.4-49) L 11/13/17 07:10 MCV 89.8 fl (80-96) 11/13/17 07:10 MCHC 34.3 g/dl (32.0-35.9) 11/13/17 07:10 RDW 13.6 % (11.9-15.9) 11/13/17 07:10 Plt Count 401 K/MM3 (134-434) 11/13/17 07:10 MPV 7.1 fl (7.5-11.1) L 11/13/17 07:10 CMP Sodium 142 mmol/L (136-145) 11/13/17 07:10 Potassium 4.1 mmol/L (3.5-5.1) 11/13/17 07:10 Chloride 100 mmol/L (98-107) 11/13/17 07:10 Carbon Dioxide 30 mmol/L (21-32) 11/13/17 07:10 Anion Gap 12 (8-16) 11/13/17 07:10 BUN 41 mg/dL (7-18) H 11/13/17 07:10 Creatinine 5.4 mg/dL (0.7-1.3) H 11/13/17 07:10 Creat Clearance w eGFR 12.45 (>60) 11/13/17 07:10 Random Glucose 89 mg/dL (74-106) 11/13/17 07:10 Calcium 8.6 mg/dL (8.5-10.1) 11/13/17 07:10 Total Bilirubin 0.7 mg/dL (0.2-1.0) 11/12/17 07:00 AST 79 U/L (15-37) H 11/12/17 07:00 ALT 80 U/L (12-78) H 11/12/17 07:00 Alkaline Phosphatase 120 U/L (45-117) H 11/12/17 07:00 Total Protein 6.4 g/dl (6.4-8.2) 11/12/17 07:00 Albumin 2.4 g/dl (3.4-5.0) L 11/12/17 07:00 CARDIAC ENZYMES Creatine Kinase 998 IU/L (39-308) H 11/13/17 07:10 Troponin I 0.21 ng/ml (0.00-0.05) H 11/04/17 05:30 Current Medications Generic Name Dose Route Start Last Admin Trade Name Freq PRN Reason Stop Dose Admin Sodium Chloride 250 mls @ 3,000 mls/hr 11/09/17 16:21 Normal Saline - IV PRN PRN Hypotension during Dialysis Levofloxacin 500 mg in 100 mls @ 100 mls/hr 11/11/17 10:00 11/13/17 09:13 Levaquin 500 Mg Premixed Ivpb - IVPB 100 mls/hr Q2D@1000 ODILIA Administration Protocol Sodium Chloride 250 mls @ 3,000 mls/hr 11/11/17 14:19 Normal Saline - IV 11/12/17 14:19 PRN PRN Hypotension during Dialysis Pantoprazole Sodium 40 mg 11/10/17 10:00 11/13/17 09:06 Protonix Iv IVPUSH 40 mg DAILY ODILIA Administration Torsemide 80 mg 11/12/17 10:00 11/13/17 09:53 Demadex - PO 80 mg DAILY ODILIA Administration Home Medications Medication Instructions Recorded NK [No Known Home Medication] 10/31/17 11/06/17 13:25 Stool Shiga Toxin Test - Final 11/04/17 10:20 Transtracheal Aspiration Legionella Culture - Preliminary 11/03/17 15:20 Blood - Shiley Catheter Blood Culture - Final NO GROWTH AFTER 5 DAYS INCUBATION 11/03/17 15:20 Blood - Peripheral Venous Blood Culture - Final NO GROWTH AFTER 5 DAYS INCUBATION 10/31/17 18:00 Blood - Peripheral Venous Blood Culture - Final NO GROWTH AFTER 5 DAYS INCUBATION 10/31/17 18:05 Blood - Peripheral Venous Blood Culture - Final NO GROWTH AFTER 5 DAYS INCUBATION 11/02/17 05:30 Serum Legionella Serology - Final 10/31/17 23:30 Cerebral Spinal Fluid - Lumbar Puncture Gram Stain - Final 10/31/17 23:30 Cerebral Spinal Fluid - Lumbar Puncture CSF Culture - Final 10/31/17 18:30 Urine - Urine - Catheterized Urine Culture - Final NO GROWTH OBTAINED 11/01/17 09:00 Urine - Urine Sunshine Legionella Antigen - Final 11/01/17 09:00 Urine - Urine Sunshine Streptococcus pneumoniae Antigen (M - Final PE: per resident's note ASSESSMENT AND PLAN: This is a 32 year old man with no significant history who presented to the ED with change of mental status. #s/p Severe sepsis secondary to Legionella pneumonia on Levaquin 500mg day # 12 continue as per ID q2 day adjusted renally # Acute metabolic encephalopathy due to Legionella peumonia improved # Acute kidney injury on HD on Torsemide IV, carlos Sanchez on the case # Anemia possible due to renal failure, Hemoglobin is stable, MCV is normal . # Rhabdomyolysis improving 5ooo-->2000-->998 today # Hepatic transaminitis improving due to sepsis # Thrombocytopenia Improved # Large bowel ileus Clinically improved # Hyponatremia/hypokalmenia Improved # Demand ischemia secondary to sepsis Disposition Physical therapy, patient needs rehab. PT ordered 2x per day Visit type - Emergency Visit Emergency Visit: Yes ED Registration Date: 11/01/17 Care time: The patient presented to the Emergency Department on the above date and was hospitalized for further evaluation of their emergent condition. - New Patient This patient is new to me today: No - Critical Care Critical Care patient: No - Discharge Referral Referred to [facility] Med P.C.: No
[2017-11-14 09:32] LABS: CHLORIDE 100 mmol/L (98-107); POTASSIUM 3.8 mmol/L (3.5-5.1); SODIUM 140 mmol/L (136-145)
[2017-11-14 10:12] LABS: ANION GAP 14 (8-16); BLOOD UREA NITROGEN 55 mg/dL (7-18); CALCIUM 9.4 mg/dL (8.5-10.1); CO2 26 mmol/L (21-32); CREATININE 5.8 mg/dL (0.7-1.3); GLUCOSE,RANDOM 89 mg/dL (74-106); PHOSPHOROUS 7.4 mg/dL (2.5-4.9)
[2017-11-14] MEDS: PANTOPRAZOLE SODIUM 40 MG VIAL IVPUSH SCH (10:20)
[2017-11-14] MEDS: TORSEMIDE 20 MG TABLET (FP) PO SCH (10:20)
--- NOTE | 2017-11-14 11:25 | PN ---
Physical Exam: SUBJECTIVE: Patient seen and examined at bedside. Patient continues to improve daily. No new complaints. Eager for discharge. OBJECTIVE: Vital Signs Temperature 98.3 F 11/14/17 08:55 Pulse Rate 82 11/14/17 08:55 Respiratory Rate 20 11/14/17 08:55 Blood Pressure 128/78 11/14/17 08:55 O2 Sat by Pulse Oximetry (%) 96 11/14/17 09:00 GENERAL: The patient is awake, alert, and fully oriented, in no acute distress. HEAD: Normal with no signs of trauma. EYES: PERRL, extraocular movements intact, sclera anicteric, conjunctiva clear. No ptosis. LUNGS: Breath sounds equal, clear to auscultation bilaterally, no wheezes, no crackles, no accessory muscle use. HEART: Regular rate and rhythm, S1, S2 without murmur, rub or gallop. ABDOMEN: Soft, nontender, nondistended, normoactive bowel sounds, no guarding, no rebound, no hepatosplenomegaly, no masses. EXTREMITIES: 2+ pulses, warm, well-perfused, no edema. NEUROLOGICAL: Cranial nerves II through X grossly intact. Speech continues to be slurred, but is improving, gait not observed. SKIN: Warm, dry, normal turgor, no rashes or lesions noted CBC, BMP 11/13/17 07:10 11/14/17 08:00 Home Medication List Medication Instructions Recorded Confirmed Type NK [No Known Home Medication] 10/31/17 10/31/17 History Active Medications Generic Name Dose Route Start Last Admin Trade Name Freq PRN Reason Stop Dose Admin Sodium Chloride 250 mls @ 3,000 mls/hr 11/09/17 16:21 Normal Saline - IV PRN PRN Hypotension during Dialysis Levofloxacin 500 mg in 100 mls @ 100 mls/hr 11/11/17 10:00 11/13/17 09:13 Levaquin 500 Mg Premixed Ivpb - IVPB 100 mls/hr Q2D@1000 ODILIA Administration Protocol Pantoprazole Sodium 40 mg 11/10/17 10:00 11/14/17 10:20 Protonix Iv IVPUSH 40 mg DAILY ODILIA Administration Torsemide 80 mg 11/12/17 10:00 11/14/17 10:20 Demadex - PO 80 mg DAILY ODILIA Administration ASSESSMENT/PLAN: The patient is a 32 yo M w/ no pmhx admitted for Legionella PNA, rhabdomyolysis and acute renal failure. #Pneumonia 2/2 to Legionella -Afebrile. No leukocytosis. -Per ID: cont Levofloxacin 500 mg Q48H (Day #12 of antibiotics); can d/c w/ PO levaquin to complete 14 days abx #Acute rhabdomyolysis -CPK continues to trend down; 998 yesterday #Acute Renal Failure likely 2/2 Rhabdomyolysis -on MWF HD schedule -Torsemide 80 mg PO daily per nephro #nausea/vomiting/constipation; Resolved. #Transaminitis; Resolving. LFTs trending down #Mild troponemia; Resolved. #Mild thrombocytopenia; Resolved. #Toxic Metabolic Encephalopathy- resolved #Prophylaxis -Heparin 5k units SQ TID -cont Protonix 40 mg daily #FEN -no IVf indicated -monitor lytes -dysphagia ground/honey thick #Dispo -cont to monitor on med-surg -Patient accepted to [facility] for rehab; HD to be arranged by nephro. Planning for DC tomorrow. Visit type - Emergency Visit Emergency Visit: Yes ED Registration Date: 11/01/17 Care time: The patient presented to the Emergency Department on the above date and was hospitalized for further evaluation of their emergent condition. - New Patient This patient is new to me today: No - Critical Care Critical Care patient: No
--- NOTE | 2017-11-14 17:00 | PN ---
Teaching Attending Note Name of Resident: [place] ATTENDING PHYSICIAN STATEMENT I saw and evaluated the patient. I reviewed the resident's note and discussed the case with the resident. I agree with the resident's findings and plan as documented. SUBJECTIVE: OBJECTIVE: Vital Signs Temperature 98.3 F 11/14/17 15:33 Pulse Rate 94 H 11/14/17 15:33 Respiratory Rate 20 11/14/17 15:33 Blood Pressure 133/84 11/14/17 15:33 O2 Sat by Pulse Oximetry (%) 96 11/14/17 09:00 CBCD WBC 6.9 K/mm3 (4.0-10.0) 11/13/17 07:10 RBC 2.81 M/mm3 (4.00-5.60) L 11/13/17 07:10 Hgb 8.6 GM/dL (11.7-16.9) L 11/13/17 07:10 Hct 25.2 % (35.4-49) L 11/13/17 07:10 MCV 89.8 fl (80-96) 11/13/17 07:10 MCHC 34.3 g/dl (32.0-35.9) 11/13/17 07:10 RDW 13.6 % (11.9-15.9) 11/13/17 07:10 Plt Count 401 K/MM3 (134-434) 11/13/17 07:10 MPV 7.1 fl (7.5-11.1) L 11/13/17 07:10 CMP Sodium 140 mmol/L (136-145) 11/14/17 08:00 Potassium 3.8 mmol/L (3.5-5.1) 11/14/17 08:00 Chloride 100 mmol/L (98-107) 11/14/17 08:00 Carbon Dioxide 26 mmol/L (21-32) 11/14/17 08:00 Anion Gap 14 (8-16) 11/14/17 08:00 BUN 55 mg/dL (7-18) H 11/14/17 08:00 Creatinine 5.8 mg/dL (0.7-1.3) H 11/14/17 08:00 Creat Clearance w eGFR 11.46 (>60) 11/14/17 08:00 Random Glucose 89 mg/dL (74-106) 11/14/17 08:00 Calcium 9.4 mg/dL (8.5-10.1) 11/14/17 08:00 Total Bilirubin 0.7 mg/dL (0.2-1.0) 11/12/17 07:00 AST 79 U/L (15-37) H 11/12/17 07:00 ALT 80 U/L (12-78) H 11/12/17 07:00 Alkaline Phosphatase 120 U/L (45-117) H 11/12/17 07:00 Total Protein 6.4 g/dl (6.4-8.2) 11/12/17 07:00 Albumin 2.4 g/dl (3.4-5.0) L 11/12/17 07:00 CARDIAC ENZYMES Creatine Kinase 998 IU/L (39-308) H 11/13/17 07:10 Troponin I 0.21 ng/ml (0.00-0.05) H 11/04/17 05:30 Current Medications Generic Name Dose Route Start Last Admin Trade Name Freq PRN Reason Stop Dose Admin Sodium Chloride 250 mls @ 3,000 mls/hr 11/09/17 16:21 Normal Saline - IV PRN PRN Hypotension during Dialysis Levofloxacin 500 mg in 100 mls @ 100 mls/hr 11/11/17 10:00 11/13/17 09:13 Levaquin 500 Mg Premixed Ivpb - IVPB 100 mls/hr Q2D@1000 ODILIA Administration Protocol Pantoprazole Sodium 40 mg 11/10/17 10:00 11/14/17 10:20 Protonix Iv IVPUSH 40 mg DAILY ODILIA Administration Torsemide 80 mg 11/12/17 10:00 11/14/17 10:20 Demadex - PO 80 mg DAILY ODILIA Administration Home Medications Medication Instructions Recorded NK [No Known Home Medication] 10/31/17 PE: per resident's note ASSESSMENT AND PLAN: This is a 32 year old man with no significant history who presented to the ED with change of mental status. #s/p Severe sepsis secondary to Legionella pneumonia on Levaquin 500mg day # 13 continue as per ID q2 day adjusted renally # Acute metabolic encephalopathy due to Legionella peumonia improved # Acute kidney injury on HD on (MWF) Torsemide IV, Daniel nephro on the case # Anemia possible due to renal failure, Hemoglobin is stable, MCV is normal . # Rhabdomyolysis improving 5ooo-->2000-->998 today # Hepatic transaminitis improving due to sepsis # Thrombocytopenia Improved # Large bowel ileus Clinically improved # Hyponatremia/hypokalmenia Improved # Demand ischemia secondary to sepsis Disposition Physical therapy, patient will be going to rehab.post dialysis in am. PT ordered 2x per day
[2017-11-15] MEDS ORDERED: PT OWN MED DRAWER 7, Y5N ONE (10:14)
[2017-11-15] MEDS: PANTOPRAZOLE SODIUM 40 MG VIAL IVPUSH SCH ×2 (10:45→16:08)
[2017-11-15] MEDS: TORSEMIDE 20 MG TABLET (FP) PO SCH ×2 (10:46→17:39)
[2017-11-15 11:22] LABS: HEMATOCRIT 26.5 % (35.4-49); HEMOGLOBIN 9.3 GM/dL (11.7-16.9); MCH 31.3 pg (25.7-33.7); MCHC 35.3 g/dl (32.0-35.9); MEAN CELL VOLUME 88.6 fl (80-96); MEAN PLT VOLUME 6.7 fl (7.5-11.1); PLATELET COUNT 494 K/MM3 (134-434); RBC 2.99 M/mm3 (4.00-5.60)
[2017-11-15 11:42] LABS: ANION GAP 12 (8-16); BLOOD UREA NITROGEN 59 mg/dL (7-18); CALCIUM 9.4 mg/dL (8.5-10.1); CHLORIDE 99 mmol/L (98-107); CO2 27 mmol/L (21-32); CREATININE 5.2 mg/dL (0.7-1.3); GLUCOSE,RANDOM 106 mg/dL (74-106); PHOSPHOROUS 5.8 mg/dL (2.5-4.9); POTASSIUM 3.9 mmol/L (3.5-5.1); SODIUM 138 mmol/L (136-145)
[2017-11-15] MEDS ORDERED: SODIUM CHLORIDE 250 ML IV PRN (13:23)
--- NOTE | 2017-11-15 13:58 | PN ---
Progress Note (short form) - Note Progress Note: Overall appears better. No CP or SOB. Remains afebrile. No acute events overnight. Intake & Output 11/12/17 11/13/17 11/14/17 11/15/17 23:59 23:59 23:59 23:59 Intake Total 460 700 800 450 Output Total 2120 1200 1900 600 Balance -1660 -500 -1100 -150 Weight 214 lb 205 lb 182 lb 9 oz Last Vital Signs Temp Pulse Resp BP Pulse Ox 97.6 F 68 18 115/74 96 11/15/17 10:22 11/15/17 12:25 11/15/17 12:25 11/15/17 12:25 11/14/17 21:00 Active Medications Sodium Chloride (Normal Saline -) 250 mls @ 3,000 mls/hr IV PRN PRN PRN Reason: Hypotension during Dialysis Levofloxacin (Levaquin 500 Mg Premixed Ivpb -) 500 mg in 100 mls @ 100 mls/hr IVPB Q2D@1000 ODILIA; Protocol Last Admin: 11/15/17 10:45 Dose: Not Given Pantoprazole Sodium (Protonix Iv) 40 mg IVPUSH DAILY [facility] Last Admin: 11/15/17 10:45 Dose: Not Given Torsemide (Demadex -) 80 mg PO DAILY [facility] Last Admin: 11/15/17 10:46 Dose: Not Given Constitutional: Yes: NAD Eyes: Yes: WNL HENT: Yes: WNL Neck: Yes: WNL Cardiovascular: Yes: Regular Rate and Rhythm, S1, S2 Respiratory: Yes: Few scattered rhonchi Gastrointestinal: Yes: Normal Bowel Sounds, Soft Extremities: Yes: WNL Edema: Yes Labs: Laboratory Results - last 24 hr 11/15/17 11/15/17 11:00 11:00 WBC 6.0 RBC 2.99 L Hgb 9.3 L Hct 26.5 L MCV 88.6 MCH 31.3 MCHC 35.3 RDW 13.0 Plt Count 494 H D MPV 6.7 L Sodium 138 Potassium 3.9 Chloride 99 Carbon Dioxide 27 Anion Gap 12 BUN 59 H Creatinine 5.2 H Creat Clearance w eGFR 13.00 Random Glucose 106 Calcium 9.4 Phosphorus 5.8 H D Problem List - Problems (1) Acute kidney failure Code(s): N17.9 - ACUTE KIDNEY FAILURE, UNSPECIFIED Qualifiers: Acute renal failure type: unspecified Qualified Code(s): N17.9 - Acute kidney failure, unspecified (2) Altered mental status Code(s): R41.82 - ALTERED MENTAL STATUS, UNSPECIFIED Qualifiers: Altered mental status type: disorientation Qualified Code(s): R41.0 - Disorientation, unspecified (3) Elevated LFTs Code(s): R94.5 - ABNORMAL RESULTS OF LIVER FUNCTION STUDIES (4) Fever Code(s): R50.9 - FEVER, UNSPECIFIED Qualifiers: Fever type: unspecified Qualified Code(s): R50.9 - Fever, unspecified (5) Hepatocellular injury Code(s): K76.9 - LIVER DISEASE, UNSPECIFIED (6) Legionella pneumonia Code(s): A48.1 - LEGIONNAIRES' DISEASE (7) Pneumonia Code(s): J18.9 - PNEUMONIA, UNSPECIFIED ORGANISM (8) URI (upper respiratory infection) Code(s): J06.9 - ACUTE UPPER RESPIRATORY INFECTION, UNSPECIFIED Qualifiers: URI type: unspecified viral URI Qualified Code(s): J06.9 - Acute upper respiratory infection, unspecified Assessment/Plan Resolving Legionella Pneumonia Resolved Severe Sepsis Acute Kidney Injury requiring HD Metabolic Acidosis Resolving AMS Thrombocytopenia Hyponatremia Elevated LFTs +Troponins likely Demand Ischemia Resolving Rhabdomyolysis ABX per ID: Levaquin HD per Renal Monitor urine output, creatinine VTE prophylaxis D/C planning Dr Stauffer
--- NOTE | 2017-11-15 14:49 | PN ---
Progress Note, IRONWORKER - Note Progress Note: Selected Entries 11/14/17 11/14/17 11/14/17 02:00 06:00 08:55 Breakfast Lunch Supper Temperature 98.3 F 97.6 F 98.3 F 11/14/17 11/14/17 11/14/17 15:33 18:53 22:00 Breakfast 25% Lunch 25% Supper 50% Temperature 98.3 F 97.8 F 97.6 F 11/15/17 11/15/17 11/15/17 02:00 05:05 10:22 Breakfast Lunch Supper Temperature 97.8 F 97.6 F 97.6 F 11/15/17 12:30 Breakfast 50% Lunch Supper Temperature Laboratory Tests 11/15/17 11:00 WBC 6.0 Seen in Dialysis. Pt doing much better. Cooperative, more verbal, speech continues to improve. Swallowing also improving. I believe pt's diet can be advanced to soft regular and sips of thin liquids. Rec; Reassessment by speech path at [facility] for diet assessment, speech and swallowing tx.
--- NOTE | 2017-11-15 16:02 | PN ---
Progress Note (short form) - Note Progress Note: improved still requiring HD speech improved Vital Signs Period Temp Pulse Resp BP Sys/Dangelo Pulse Ox Last 24 Hr 97.6 F-97.8 F 68-100 18-20 114-143/72-92 96 cor-rrr lungs clear abd soft,nt ext no edema +permacath CBC, BMP 11/15/17 11:00 11/15/17 11:00 Microbiology 11/06/17 13:25 Stool Shiga Toxin Test - Final 11/04/17 10:20 Transtracheal Aspiration Legionella Culture - Preliminary 11/03/17 15:20 Blood - Shiley Catheter Blood Culture - Final NO GROWTH AFTER 5 DAYS INCUBATION 11/03/17 15:20 Blood - Peripheral Venous Blood Culture - Final NO GROWTH AFTER 5 DAYS INCUBATION 10/31/17 18:00 Blood - Peripheral Venous Blood Culture - Final NO GROWTH AFTER 5 DAYS INCUBATION 10/31/17 18:05 Blood - Peripheral Venous Blood Culture - Final NO GROWTH AFTER 5 DAYS INCUBATION 11/02/17 05:30 Serum Legionella Serology - Final 10/31/17 23:30 Cerebral Spinal Fluid - Lumbar Puncture Gram Stain - Final 10/31/17 23:30 Cerebral Spinal Fluid - Lumbar Puncture CSF Culture - Final 10/31/17 18:30 Urine - Urine - Catheterized Urine Culture - Final NO GROWTH OBTAINED 11/01/17 09:00 Urine - Urine Sunshine Legionella Antigen - Final 11/01/17 09:00 Urine - Urine Sunshine Streptococcus pneumoniae Antigen (M - Final a/p legionella pneumonia-day #15 antibiotics-levaquin- can d/c antibiotics after today's dose s will need convalescent legionella serology checked in 4 weeks acute renal failure- improving- dialysis per renal toxic-metabolic encephalopathy-resolving overall slowly improving please call back if needed Problem List - Problems (1) Pneumonia Code(s): J18.9 - PNEUMONIA, UNSPECIFIED ORGANISM (2) Acute kidney failure Code(s): N17.9 - ACUTE KIDNEY FAILURE, UNSPECIFIED Qualifiers: Acute renal failure type: unspecified Qualified Code(s): N17.9 - Acute kidney failure, unspecified (3) Altered mental status Code(s): R41.82 - ALTERED MENTAL STATUS, UNSPECIFIED Qualifiers: Altered mental status type: disorientation Qualified Code(s): R41.0 - Disorientation, unspecified (4) Elevated LFTs Code(s): R94.5 - ABNORMAL RESULTS OF LIVER FUNCTION STUDIES
--- NOTE | 2017-11-15 17:00 | DS ---
Physical Exam: SUBJECTIVE: Patient seen and examined. No acute events overnight. OBJECTIVE: Vital Signs Period Temp Pulse Resp BP Sys/Dangelo Pulse Ox Last 24 Hr 97.6 F-97.8 F 68-100 18-20 114-143/72-92 96 PHYSICAL EXAM GENERAL: AAOx3. NAD. Resting comfortably. Dysarthric. HEAD: AT/NC. No facial droop. Moist mucus membranes. NECK: Trachea midline, full range of motion, supple. LUNGS: CTA B/L. Diminished breath sounds in bilateral lower lung bases. +mild L crackles. HEART: RRR. Normal S1, S2. No murmurs, rubs or gallop noted. ABDOMEN: Soft, nontender, nondistended, normoactive bowel sounds, no guarding, no rebound, no hepatosplenomegaly, no masses. EXTREMITIES: 2+ pulses, warm, well-perfused, no edema. 4/5 muscle strength b/l u /L LE. NEUROLOGICAL: Cranial nerves II through X grossly intact. mildly slurred speech , gait not observed. SKIN: Warm, dry, normal turgor, no rashes or lesions noted. LABS Laboratory Results - last 24 hr 11/15/17 11/15/17 11:00 11:00 WBC 6.0 RBC 2.99 L Hgb 9.3 L Hct 26.5 L MCV 88.6 MCH 31.3 MCHC 35.3 RDW 13.0 Plt Count 494 H D MPV 6.7 L Sodium 138 Potassium 3.9 Chloride 99 Carbon Dioxide 27 Anion Gap 12 BUN 59 H Creatinine 5.2 H Creat Clearance w eGFR 13.00 Random Glucose 106 Calcium 9.4 Phosphorus 5.8 H D HOSPITAL COURSE: Date of Admission:11/01/17 IMAGING: Head CT: No evidence of acute intracranial hemmorhage, edema, midline shift, mass effect, or skull fx. No CT evidence of acute territorial infarction. Abd U/S: Borderline hepatosplenomegaly w/ no evidence of acute pathology within the abdomen. Liver is borderline enlarged measuring 17.6 cm in craniocaudad dimension. It is homogenous in teexture. There is an echogenic mass within the L lobe measuring 2.cm. This is consistent w/ a hemangioma. No additional intrahepatic masses are identified. The portal flow is documented within the main portal vein. CT Abd/Pel w/o contrast: 1. Extensive L lower lobe consolidation suspicious for acute pna. There is a lesser degree of consolidation/atelectasis within the R lung base. 2. Limited study w/ no gross evidence of acute pathology within the abdomen or pelvis. Abd xray: Colonic ileus w/ some contrast in R colon and rectosigmoid. Free air not seen. 32M w/ no pmhx admitted to the ICU for Legionella PNA, rhabdomyolysis and ARF. Upon admission, patient had altered mental status with reports of bowel incontinence per his family. In the ED, pt was found to be febrile at 102.6, with elevated LFTs, SALBADOR, and abnormal U/A. CT was done that was neg for acute bleed or signs of ICP. Pt was subsequently started on Vanc/Zosyn/Flagyl for possible unknown source of infection. During admission, urine/blood/CSF cx were all ordered in addition to Legionella and Strep pneumo urine Ag. Blood, urine, and CSF cultures in addition to Strep pneumo urine Ag were all negative. Legionella Ag and serology were positive. ID was consulted. Upon ID recommendation, pt was switched to Levofloxacin. Due to pt's altered mental state, neuro was also consulted. Upon neuro eval, pt was found to have a toxic metabolic encephalopathy unrelated to a neurological infection. Abnormal blood work additionally showed extremely high Cr levels as well as CPK levels. Nephro was consulted. Pt was found to have acute rhabdomyolosis and was in acute renal failure. Due to ARF, pt underwent dialysis. Throughout the pt's hospital stay, Cr remained elevated and as a result, underwent hemodialysis for several days during admission. Additionally, platelets were found to be abnormally low. As a result, heme was consulted. Peripheral smear and autoimmune work up for blood- related disorders were ordered. Pt was found to have thrombocytopenia likely secondary to sepsis and current clinical condition. Upon further work up abnormal LFTs, RUQ U/s was done that showed borderline hepatosplenomegaly. Date of Discharge: 11/15/17 Discharge Summary Reason For Visit: AMS,FEVER,ARF Current Active Problems Acute kidney failure (Acute) Condition: Improved - Instructions Diet, Activity, Other Instructions: You were admitted to the hospital for altered mental status and found to have Legionella pneumonia and rhabdomyolysis (a condition that causes muscle breakdown). As a result, these conditions caused you to have an acute kidney dysfunction where you required dialysis throughout your hospital stay. A permacath was placed to continue your dialysis treatment after you leave the hospital. Throughout your hospital stay, your mental status improved. You are being discharged to an acute rehab facility to continue physical therapy and for dialysis treatment. MEDICAL RECOMMENDATIONS You were given new a medication during your hospital stay. Please start taking this med after you leave this hospital: Please start taking Torsemide 80 mg once a day. CONSULT RECOMMENDATIONS Please follow up with your primary care physician within 1 week. Please follow up with your media consultant outside sales, Dr. Edmondson, within 1 week. Please follow up with your infectious disease doctor, Dr. Garcia, within 1 week. Please follow up with your eye doctor within 1 week. If you start to experience mental status changes, chest pain, shortness of breath, worsening fever/chills, urinary or bowel incontinence, or other associated symptoms, please proceed to your nearest emergency room immediately. [place] [facility] [place] [facility] [place] [Provider Group] - 1 Week Serina Garcia MD [Staff Physician] - 1 Week Rojas Edmondson MD [Staff Physician] - 1 Week [facility]position: [facility] - Home Medications Comprehensive Discharge Medication List: Ambulatory Orders Torsemide [Demadex -] 80 mg PO DAILY tablet 11/15/17 - Discharge Referral Referred to [facility] No
[2017-11-15] MEDS ORDERED: levoFLOXacin 750 MG TABLET PO ONE (17:18)
[2017-11-15 17:36] VITALS: BP 128/82; PULSE 90; TEMP 98.4
--- NOTE | 2017-11-15 18:27 | PN ---
Progress Note (short form) - Note Progress Note: Renal Follow up for SALBADOR Pt seen and examined during dialyiss awake and alert no acute complaints no sob, cp, abd pain, N/V/D Vital Signs Temperature 98.4 F 11/15/17 17:35 Pulse Rate 90 11/15/17 17:35 Respiratory Rate 20 11/15/17 17:35 Blood Pressure 128/82 11/15/17 17:35 O2 Sat by Pulse Oximetry (%) 96 11/14/17 21:00 Intake & Output 11/12/17 11/13/17 11/14/17 11/15/17 23:59 23:59 23:59 23:59 Intake Total 460 700 800 850 Output Total 2120 1200 1900 600 Balance -1660 -500 -1100 250 Weight 97.069 kg 92.986 kg 82.809 kg NAD awake and alert RRR, No M/R CTA soft NT/ND Trace LE edema CBC, BMP 11/15/17 11:00 11/15/17 11:00 Current Medications Sodium Chloride (Normal Saline -) 250 mls @ 3,000 mls/hr IV PRN PRN PRN Reason: Hypotension during Dialysis Levofloxacin (Levaquin 500 Mg Premixed Ivpb -) 500 mg in 100 mls @ 100 mls/hr IVPB Q2D@1000 ODILIA; Protocol Last Admin: 11/15/17 10:45 Dose: Not Given Levofloxacin (Levaquin -) 250 mg PO ONCE ONE Stop: 11/15/17 18:31 Last Admin: 11/15/17 18:11 Dose: 250 mg Pantoprazole Sodium (Protonix Iv) 40 mg IVPUSH DAILY ODILIA Last Admin: 11/15/17 16:08 Dose: 40 mg Torsemide (Demadex -) 80 mg PO DAILY ODILIA Last Admin: 11/15/17 17:39 Dose: 80 mg 32 year old gentleman with no significant PMhx presented with AMS/generalized weakness and found to have oliguric renal failure. #Acute Renal Injury secondary to legionella infection + Pigment injury from Rhabdo pt is non-oliguric but no significant reduction in BUN/Cr to indicate significant renal recovery tolerated HD well today will continue 3x weekly dialysis until recovery noted continue PT Completed course of Abx Rojas Edmondson DO
== END 2017-11-15 18:44 | DRG 720 ==
LOC: JER 17:44 → JERBED 11-01 07:55 → JICU 11-01 10:46 → J5S 11-08 20:47
PROVIDERS: ADMIT Internal Medicine; ATTEND Internal Medicine
PROC: 009U3ZZ Drainage of Spinal Canal, Percutaneous Approach (ICD-10-PCS; principal; 2017-10-31)
PROC: 05HM33Z Insertion of Infusion Device into Right Internal Jugular Vein, Percutaneous Approach (ICD-10-PCS; 2017-11-02)
PROC: B543ZZA Ultrasonography of Right Jugular Veins, Guidance (ICD-10-PCS; 2017-11-02)
PROC: B543ZZA Ultrasonography of Right Jugular Veins, Guidance (ICD-10-PCS; 2017-11-09)
PROC: 05HM33Z Insertion of Infusion Device into Right Internal Jugular Vein, Percutaneous Approach (ICD-10-PCS; 2017-11-09)
PROC: 5A1D70Z Performance of Urinary Filtration, Intermittent, Less than 6 Hours Per Day (ICD-10-PCS; 2017-11-12)
PROC: 5A1D70Z Performance of Urinary Filtration, Intermittent, Less than 6 Hours Per Day (ICD-10-PCS; 2017-11-15)
DX: A41.89 Other specified sepsis (principal); A48.1 Legionnaires' disease; G93.41 Metabolic encephalopathy; N17.9 Acute kidney failure, unspecified; N18.6 End stage renal disease; E86.0 Dehydration; R50.9 Fever, unspecified; R41.0 Disorientation, unspecified; E87.6 Hypokalemia; M62.82 Rhabdomyolysis; R74.0 Nonspecific elevation of levels of transaminase and lactic acid dehydrogenase [LDH]; R94.5 Abnormal results of liver function studies; D69.6 Thrombocytopenia, unspecified; R16.1 Splenomegaly, not elsewhere classified; R16.0 Hepatomegaly, not elsewhere classified; E87.1 Hypo-osmolality and hyponatremia; E87.2 Acidosis; F12.20 Cannabis dependence, uncomplicated; I24.8 Other forms of acute ischemic heart disease; G62.9 Polyneuropathy, unspecified; K52.89 Other specified noninfective gastroenteritis and colitis; D73.1 Hypersplenism; K72.90 Hepatic failure, unspecified without coma; D64.9 Anemia, unspecified; R65.20 Severe sepsis without septic shock; K76.9 Liver disease, unspecified; R11.2 Nausea with vomiting, unspecified; R14.0 Abdominal distension (gaseous); K56.7 Ileus, unspecified; J06.9 Acute upper respiratory infection, unspecified; Z99.2 Dependence on renal dialysis
CPT/HCPCS: 36415; 36600; 70450-TC; 71045-TC-FY; 74018-TC-FY; 74176-TC; 74230-TC-FY; 76000-TC-FY; 76700-TC; 80048; 80053; 80074; 80076; 80307; 81003; 81015; 82085; 82140; 82248; 82436; 82550; 82553; 82565; 82570; 82607; 82803; 82945; 82977; 83010; 83519; 83520; 83605; 83615; 83625; 83735; 83874; 83930; 83935; 84100; 84133; 84155; 84156; 84157; 84165; 84300; 84484; 84520; 84540; 84550; 85025; 85027; 85044; 85384; 85397; 85610; 85651; 85730; 86038; 86256; 86593; 86713; 86880; 87040; 87070; 87086; 87205; 87389; 87427; 87491; 87591; 87899; 92611-GN; 93005; 93010; 93306-TC; 94760; 95860-TC; 97116-GP; 97162-GP; 99285-25; J0131; J1644; J7030

== ENCOUNTER 2017-12-04 16:09 | Inpatient (IN) | payer OTHER ==
--- NOTE | 2017-12-04 16:14 | PDOC ---
History of Present Illness - General Chief Complaint: Respiratory Stated Complaint: FEVER Time Seen by Provider: 12/04/17 16:13 Past History - Past Medical History Allergies/Adverse Reactions: Allergies Allergy/AdvReac Type Severity Reaction Status Date / Time lactose Allergy Verified 11/03/17 11:51 Home Medications: Ambulatory Orders Torsemide [Demadex -] 80 mg PO DAILY tablet 11/15/17 COPD: No - Immunization History Immunization Up to Date: No - Suicide/Smoking/Psychosocial Hx Smoking History: Current every day smoker Have you smoked in the past 12 months: Yes Number of Cigarettes Smoked Daily: 5 Hx Alcohol Use: Yes (SOCIAL) Drug/Substance Use Hx: Yes Substance Use Type: Marijuana Hx Substance Use Treatment: No
--- NOTE | 2017-12-04 16:40 | PDOC ---
Attending Attestation - Resident Resident Name: Luis Carlos Fitzgerald - HPI HPI: 12/04/17 18:18 The patient is a 32-year-old male with a past medical history of sepsis 2/2 legionella PNA, rhabdomyolysis and ARF presents to the emergency department from [facility] for fever. The patient reports a high fever since yesterday. The patient reports an additional concern of nausea and vomiting, states he had a total of 3 episodes of emesis since last night. The patient reports a further concern of neck soreness for the past weeks, thats has improved. The patient reports his last dialysis was on Wednesday (11/29/17), states his blood is checked often, and they are slowly trying to wean him off. Patient was seen at the ER o 11/01/17 for AMS. The patient was admitted to the ICU for sepsis 2/2 Legionella PNA, rhabdomyolysis and ARF. During admission, a permacath was placed due to patient's need to continue dialysis for at least several weeks post-discharge or until kidney function improves. Labs showed marked improvement in CPK levels with resolving rhabdomyolysis. Patients antibiotic course was completed in the hospital for legionella. The patient was discharged on 11/15/2017 to acute rehab. Allergies: lactose PCP: - Physicial Exam PE: 12/04/17 18:24 GENERAL: Awake, alert, and fully oriented, in no acute distress ABDOMEN: Soft, nontender. No guarding, no rebound. No masses SKIN: (+) Tiny redness around the permacath. Warm, Dry, normal turgor, no rashes or lesions noted. - Medical Decision Making 12/04/17 18:18 Documentation prepared by Ana Rosa Philip, acting as medical administrative assistant for Cristela Contreras MD. <Ana Rosa Philip - Last Filed: 12/04/17 18:18> - Medical Decision Making 12/04/17 20:05 Pt presents to the Ed complaining of fever that started today. Recent history of legionella sepsis, which also caused ARF and rhabdo. Febrile in the ED. Will treat with broad spetrum antibiotics and admit to medicine for sepsis. 12/04/17 21:15 <Cristela Contreras - Last Filed: 12/04/17 21:17>
[2017-12-04] MEDS ORDERED: ACETAMINOPHEN 1000 MG/100 ML VIAL (NON FORMULARY) IVPB ONE (16:49)
[2017-12-04] MEDS ORDERED: VANCOMYCIN 1,000 MG in DEXTROSE 5%-WATER - 250 ML IVPB ONE (16:51)
[2017-12-04] MEDS ORDERED: PIPERACILLIN/TAZOB 2.25 GM 2.25 GM in DEXTROSE 5%-WATER - 50 ML IVPB ONE (16:51)
[2017-12-04 16:59] LABS: VENOUS PC02 27.8 mmHg (38-52); VENOUS PH 7.58 (7.32-7.42); VENOUS PO2 59.7 mmHg (28-48)
[2017-12-04] MEDS ORDERED: ACETAMINOPHEN INJECTION 100 ML IVPB ONE (16:59)
[2017-12-04] MEDS ORDERED: VANCOMYCIN 1 GRAM (PRE-DOCKED) 1,000 MG/250 ML BAG IVPB ONE (16:59)
[2017-12-04] MEDS ORDERED: PIPERACILLIN/TAZOBACTAM 2.25 GM VIAL IVPB ONE (16:59)
[2017-12-04 17:00] LABS: BASO % 0.4 % (0-2.0); EOS % 0.1 % (0-4.5); HEMATOCRIT 33.3 % (35.4-49); HEMOGLOBIN 11.6 GM/dL (11.7-16.9); LYMPH % 7.8 % (8-40); MCH 29.6 pg (25.7-33.7); MCHC 34.8 g/dl (32.0-35.9); MEAN CELL VOLUME 85.1 fl (80-96); MEAN PLT VOLUME 6.6 fl (7.5-11.1); NEUT % 81.7 % (42.8-82.8); PLATELET COUNT 329 K/MM3 (134-434); RBC 3.91 M/mm3 (4.00-5.60); RDW 12.9 % (11.9-15.9); WHITE BLOOD COUNT 11.6 K/mm3 (4.0-10.0)
[2017-12-04] MEDS ORDERED: SODIUM CHLORIDE 0.9% 1000 ML INFUS.BAG IV SCH (17:00)
[2017-12-04 17:20] LABS: INR 1.42 (0.83-1.09)
--- NOTE | 2017-12-04 17:22 | PDOC ---
History of Present Illness - General Chief Complaint: Respiratory Stated Complaint: FEVER Time Seen by Provider: 12/04/17 16:13 History Source: Patient Exam Limitations: No Limitations - History of Present Illness Initial Comments: 12/04/17 17:15 32 yo male presents from [facility] for high fevers. Pt was recently discharged after an ICU admission for Legionella sepsis, rhabdo, ARF (perm cath in place, dialysis last done Wednesday, last treatment needed according to the patient) and toxic metabolic encephalopathy. Patient discharged 11/15 to [facility] for rehab. Patient states he has been doing well in rehab with improvements in ambulation but states last night he started to feel really warm, nauseas and had tenderness to the area around his perm cath. Patient denies CP, SOB, abdominal pain or changes with urinary/bowel movements. Past History - Past Medical History Allergies/Adverse Reactions: Allergies Allergy/AdvReac Type Severity Reaction Status Date / Time lactose Allergy Verified 11/03/17 11:51 Home Medications: Ambulatory Orders Ergocalciferol (Vitamin D2) [Drisdol] 50,000 unit PO WEEKLY 12/04/17 Hydrocortisone 2.5% Topical Cr [Anusol 2.5% Hc Cream -] 1 applic RC BID Torsemide [Demadex] 80 mg PO DAILY 12/04/17 COPD: No - Immunization History Immunization Up to Date: No - Suicide/Smoking/Psychosocial Hx Smoking History: Former smoker Have you smoked in the past 12 months: Yes Number of Cigarettes Smoked Daily: 5 Information on smoking cessation initiated: No Hx Alcohol Use: No Drug/Substance Use Hx: No Substance Use Type: None Hx Substance Use Treatment: No Review of Systems - Review of Systems Constitutional: Yes: Fever Respiratory: No: Cough, Shortness of Breath, Wheezing Cardiac (ROS): Yes: Lightheadedness. No: Chest Pain, Edema ABD/GI: Yes: Nausea. No: Abdominal Distended, Constipated, Diarrhea, Vomiting : No: Burning, Dysuria, Frequency, Flank Pain Musculoskeletal: No: Back Pain Integumentary: Yes: Sweating Neurological: No: Headache *Physical Exam - Vital Signs Last Vital Signs Temp Pulse Resp BP Pulse Ox 104.8 F H 133 H 18 118/78 98 12/04/17 16:15 12/04/17 16:15 12/04/17 16:15 12/04/17 16:15 12/04/17 16:15 - Physical Exam General Appearance: Yes: Nourished, Appropriately Dressed HEENT: positive: EOMI. negative: Scleral Icterus (R), Scleral Icterus (L) Respiratory/Chest: positive: Lungs Clear, Normal Breath Sounds Cardiovascular: positive: Regular Rhythm, Regular Rate, S1, S2. negative: Edema , JVD, Murmur Vascular Pulses: Dorsalis-Pedis (R): 4+, Doralis-Pedis (L): 4+ Gastrointestinal/Abdominal: positive: Normal Bowel Sounds, Flat, Soft. negative : Distended, Guarding, Rebound, Tenderness Musculoskeletal: positive: Normal Inspection Integumentary: positive: Other (warm and tender area around the perm cath) ED Treatment Course - LABORATORY CBC & Chemistry Diagram: 12/04/17 16:35 12/04/17 16:35 - ADDITIONAL ORDERS Additional order review: Laboratory Results 12/04/17 16:35 VBG pH 7.58 H POC VBG pCO2 27.8 L POC VBG pO2 59.7 H Mixed VBG HCO3 26.4 H 12/04/17 16:35 RBC 3.91 L MCV 85.1 MCHC 34.8 RDW 12.9 MPV 6.6 L Neutrophils % 81.7 Lymphocytes % 7.8 L D Monocytes % 10.0 D Eosinophils % 0.1 D Basophils % 0.4 - RADIOLOGY Radiology Studies Ordered: Category Date Time Status CHEST X-RAY PORTABLE* [RAD] Stat Radiology 12/04/17 16:24 Taken Medical Decision Making - Medical Decision Making 12/04/17 17:49 32 yo male recently admitted to ICU for sepsis, ARF (perm cath and dialysis, last treatment wednesday) and rhabdo [facility]. Patient states the fever started last night and also admits to pain in the area of the perm cath. Denies all other ROS. Patient tachy and temp of 104.8 Exam: AOX3, NAD Heart and lungs abdomen normal Site of infection seems to be around the permcath. Hot and painful. Consult Dr. Vallecillo (vascular) who put the Perm cath in wants it removed. Permcath removed no complications, 5 min of pressure applied and homeostasis achieved. Max sent for cultures 12/04/17 18:[address] Garcia who agrees with [facility]/tavon Admitted med surg *DC/Admit/Observation/Transfer Diagnosis at time of Disposition: Sepsis Qualifiers: Sepsis type: sepsis due to unspecified organism Qualified Code(s): A41.9 - Sepsis, unspecified organism - Discharge Dispostion Condition at time of disposition: Fair Decision to Admit order: Yes - Referrals - Patient Instructions - Post Discharge Activity
[2017-12-04 17:23] LABS: ACTIVATED PTT 37.2 SECONDS (25.2-36.5)
[2017-12-04 17:25] LABS: ALBUMIN 3.7 g/dl (3.4-5.0); ALK PHOS 154 U/L (45-117); ANION GAP 14 MMOL/L (8-16); BILIRUBIN,TOTAL 0.8 mg/dL (0.2-1.0); BLOOD UREA NITROGEN 17 mg/dL (7-18); CALCIUM 9.4 mg/dL (8.5-10.1); CHLORIDE 91 mmol/L (98-107); CO2 26 mmol/L (21-32); CREATININE 1.7 mg/dL (0.7-1.3); GLUCOSE,RANDOM 119 mg/dL (74-106); POTASSIUM 3.1 mmol/L (3.5-5.1); SGOT/AST 24 U/L (15-37); SGPT/ALT 61 U/L (12-78); SODIUM 131 mmol/L (136-145); TOT PROT 8.1 g/dl (6.4-8.2)
[2017-12-04 17:46] LABS: URINE APPEARANCE CLEAR; URINE BILIRUBIN NEGATIVE (<2.0 mg/dL); URINE COLOR YELLOW; URINE GLUCOSE (UA) NEGATIVE (NEGATIVE); URINE KETONE NEGATIVE (NEGATIVE); URINE LEUK ESTERASE NEGATIVE (NEGATIVE); URINE NITRITE NEGATIVE (NEGATIVE); URINE PROTEIN NEGATIVE (NEGATIVE); URINE UROBILINOGEN NEGATIVE mg/dL (0.2-1.0)
[2017-12-04] MEDS ORDERED: POTASSIUM CHLORIDE TABS 20 MEQ TABLET.ER (FP) PO ONE ×2 (18:31→18:43)
[2017-12-04] MEDS ORDERED: HEPARIN NA (PORCINE) 5,000 UNITS/ML 1ML VIAL ONE (18:58)
[2017-12-04] MEDS: HEPARIN NA (PORCINE) 5,000 UNITS/ML 1ML VIAL SQ SCH ×2 (18:59→22:06)
[2017-12-04] MEDS: SODIUM CHLORIDE 1,000 ML IV SCH (18:59)
--- NOTE | 2017-12-04 19:00 | HP ---
CHIEF COMPLAINT: fever PCP: none HISTORY OF PRESENT ILLNESS: Pt is a 32 y/o M previously w/ no sig PMHx until 1 month ago when hospitalized for sepsis 2/2 legionella PNA, rhabdomyolysis, and ARF, underwent ICU care, had permacath placed, and d/c'd to [facility] for acute rehab. Now presents with fever, nausea, and tenderness at permacath site x 1 day. Denies CP, SOB, abd pain, changes in bowel or urinary habit, focal or generalized weakness, or changes in sensation. ER course was notable for: (1) T 104.8, HR 133, BP stable (2) BCx, UCx taken; 1 dose each Vanc/Zosyn (3) WBC 11.6, Lactate wnl Recent Travel: PAST MEDICAL HISTORY: As per HPI PAST SURGICAL HISTORY: As per HPI Social History: Smoking: Alcohol: Drugs: Family History: Allergies lactose Allergy (Verified 11/03/17 11:51) HOME MEDICATIONS: Home Medications Medication Instructions Recorded Ergocalciferol (Vitamin D2) 50,000 unit PO WEEKLY 12/04/17 [Drisdol] Hydrocortisone 2.5% Topical Cr 1 applic RC BID 12/04/17 [Anusol 2.5% Hc Cream -] Torsemide [Demadex] 80 mg PO DAILY 12/04/17 REVIEW OF SYSTEMS As per HPI PHYSICAL EXAMINATION Vital Signs - 24 hr 12/04/17 12/04/17 16:15 18:39 Temperature 104.8 F H 100.8 F H Pulse Rate 133 H Pulse Rate [ 128 H Left Apical] Respiratory 18 16 Rate Blood Pressure 118/78 Blood Pressure 137/75 [Left Arm] O2 Sat by Pulse 98 97 Oximetry (%) GENERAL: A&O x 3, NAD HEAD: NC/AT EYES: PERRLA, EOMI EARS, NOSE, THROAT: Moist mucous membranes. NECK: Normal range of motion, supple without lymphadenopathy, JVD, or masses. LUNGS: Breath sounds equal, clear to auscultation bilaterally. No wheezes, and no crackles. No accessory muscle use. HEART: Tachycardic, no m/r/g ABDOMEN: Soft, nontender, not distended, normoactive bowel sounds, no guarding, no rebound, no masses. No hepatomegaly or splenomegaly. MUSCULOSKELETAL: Warm, tender, erythematous at permacath site EXTREMITIES: No stigmata of endocarditis. 2+ pulses, warm, well-perfused. No cyanosis. No clubbing. No calf tenderness. No peripheral edema. NEUROLOGICAL: Cranial nerves II-XII intact. No focal deficits. Gait not observed. PSYCHIATRIC: Cooperative. Good eye contact. Appropriate mood and affect. SKIN: Warm, dry, normal turgor, no rashes or lesions noted, normal capillary refill. Laboratory Results - last 24 hr 12/04/17 12/04/17 12/04/17 16:35 16:35 16:35 WBC 11.6 H RBC 3.91 L Hgb 11.6 L Hct 33.3 L D MCV 85.1 MCH 29.6 MCHC 34.8 RDW 12.9 Plt Count 329 D MPV 6.6 L Absolute Neuts (auto) 9.5 H Neutrophils % 81.7 Lymphocytes % 7.8 L D Monocytes % 10.0 D Eosinophils % 0.1 D Basophils % 0.4 Nucleated RBC % 0 PT with INR 16.00 H INR 1.42 H PTT (Actin FS) 37.2 H VBG pH 7.58 H POC VBG pCO2 27.8 L POC VBG pO2 59.7 H Mixed VBG HCO3 26.4 H Sodium Potassium Chloride Carbon Dioxide Anion Gap BUN Creatinine Creat Clearance w eGFR Random Glucose Lactic Acid Calcium Total Bilirubin AST ALT Alkaline Phosphatase Creatine Kinase Troponin I Total Protein Albumin Urine Color Urine Appearance Urine pH Ur Specific [place] Urine Protein Urine Glucose (UA) Urine Ketones Urine Blood Urine Nitrite Urine Bilirubin Urine Urobilinogen Ur Leukocyte Esterase 12/04/17 12/04/17 12/04/17 16:35 16:35 16:40 WBC RBC Hgb Hct MCV MCH MCHC RDW Plt Count MPV Absolute Neuts (auto) Neutrophils % Lymphocytes % Monocytes % Eosinophils % Basophils % Nucleated RBC % PT with INR INR PTT (Actin FS) VBG pH POC VBG pCO2 POC VBG pO2 Mixed VBG HCO3 Sodium 131 L Potassium 3.1 L D Chloride 91 L Carbon Dioxide 26 Anion Gap 14 BUN 17 D Creatinine 1.7 H Creat Clearance w eGFR 47.25 Random Glucose 119 H Lactic Acid 1.4 Calcium 9.4 Total Bilirubin 0.8 AST 24 D ALT 61 D Alkaline Phosphatase 154 H D Creatine Kinase Troponin I < 0.02 D Total Protein 8.1 Albumin 3.7 Urine Color Urine Appearance Urine pH Ur Specific [place] Urine Protein Urine Glucose (UA) Urine Ketones Urine Blood Urine Nitrite Urine Bilirubin Urine Urobilinogen Ur Leukocyte Esterase 12/04/17 12/04/17 17:30 18:06 WBC RBC Hgb Hct MCV MCH MCHC RDW Plt Count MPV Absolute Neuts (auto) Neutrophils % Lymphocytes % Monocytes % Eosinophils % Basophils % Nucleated RBC % PT with INR INR PTT (Actin FS) VBG pH POC VBG pCO2 POC VBG pO2 Mixed VBG HCO3 Sodium Potassium Chloride Carbon Dioxide Anion Gap BUN Creatinine Creat Clearance w eGFR Random Glucose Lactic Acid Calcium Total Bilirubin AST ALT Alkaline Phosphatase Creatine Kinase 28 L Troponin I Total Protein Albumin Urine Color Yellow Urine Appearance Clear Urine pH 5.0 Ur Specific [place] 1.013 Urine Protein Negative Urine Glucose (UA) Negative Urine Ketones Negative Urine Blood Negative Urine Nitrite Negative Urine Bilirubin Negative Urine Urobilinogen Negative Ur Leukocyte Esterase Negative ASSESSMENT/PLAN: 32 y/o M w/ PMHx episode 1 month [employer] of sepsis 2/2 legionella PNA, rhabdomyolysis, and ARF, underwent ICU care, had permacath placed, and d/c'd to [facility] for acute rehab. Now presents with fever, nausea and NBNB vomiting, and tenderness at permacath site x 1 day. Admitted for sepsis. #Sepsis 2/2 probable permacath infection -T 104.8, HR 133, BP stable, WBC 11.6, lactate wnl in ED -warmth and tenderness at permacath site -ID consulted (Dr. Garcia) -BCx, UCx pending -Vascular consulted (Dr. Vallecillo) for exam of permacath -Vanc/Zosyn in ED -c/w Vanc/Zosyn pending ID reccs -pending CXR read, no respiratory symptoms -UA negative throughout #r/o endocarditis -proximity and depth of catheter puts Pt at risk -echo ordered -culture of catheter tip sent -ANDERS if TTE negative -cardiology consulted (Dr. Goetz) #h/o ARF, rhabdo -CPK repeated -Cr 1.7, improved since prior d/c -permacath placed for HD, last HD on Wednesday -Nephro (Dr. Edmondson) consulted -NS @ 75 #metabolic derangement -Na 131, K 3.1 -Mg and Ph pending -NS @ 75 -K repleted -monitor and replete as necessary #nausea -QTc 429 -Zofran PRN #FEN -NS @ 75 -monitor and replete lytes -sodium restricted #PPx -DVT: heparin subq -GI: not indicated at this time #dispo -admit to med/surg Visit type - Emergency Visit Emergency Visit: Yes Care time: The patient presented to the Emergency Department on the above date and was hospitalized for further evaluation of their emergent condition. - New Patient This patient is new to me today: Yes Date on this admission: 12/04/17 - Critical Care Critical Care patient: No Hospitalist Screening - Colonoscopy Questionnaire Colonoscopy Questionnaire: Colonoscopy Questionnaire - Patient: 50 - 75 years old and never had a screening colonoscopy: Unknown History of colon or rectal polyps, or CA: Unknown History of IBD, Crohn's disease or UC: Unknown History of abdominal radiation therapy as a child: Unknown - Relative: 1 with colon or rectal CA, or polyps at age 60 or younger: Unknown Colon or rectal CA diagnosed at age 45 or younger: Unknown Multiple relatives with colon or rectal CA: Unknown - Outcome: Screening Result: Negative Screen
[2017-12-04] MEDS ORDERED: ONDANSETRON 4 MG/2 ML VIAL IVPUSH PRN (19:15)
--- NOTE | 2017-12-04 21:31 | PN ---
Teaching Attending Note Name of Resident: Barney Justin ATTENDING PHYSICIAN STATEMENT I saw and evaluated the patient. I reviewed the resident's note and discussed the case with the resident. I agree with the resident's findings and plan as documented. SUBJECTIVE: OBJECTIVE: ASSESSMENT AND PLAN: this is a 32 y/o male patient was recently d/c to rehab after the patient developed an ARF 2/2 rhabdomyolysis due to ?leigonella presented for fever and chills - patient had tenderness on the site of the perma-catheter insertion, with SIRS and sepsis 2/2 foreign object - plan: remove the perma-cath send the cath for culture -ID consulted (Dr. Garcia) -BCx, UCx pending -Vascular consulted (Dr. Vallecillo) for exam of permacath - c/w Vanc/Zosyn - obtain echocardiogram for possible endocarditis - cardiology consultation - IVF fluid hydration renal involvement f/u with blood cultures
[2017-12-04 22:31] LABS: MAGNESIUM 0.9 mg/dL (1.8-2.4); PHOSPHOROUS 2.8 mg/dL (2.5-4.9)
[2017-12-05] MEDS: HEPARIN NA (PORCINE) 5,000 UNITS/ML 1ML VIAL SQ SCH ×3 (07:09→22:14)
[2017-12-05 08:00] LABS: BASO % 0.5 % (0-2.0); EOS % 0.5 % (0-4.5); HEMATOCRIT 27.6 % (35.4-49); HEMOGLOBIN 9.6 GM/dL (11.7-16.9); LYMPH % 10.4 % (8-40); MCHC 34.9 g/dl (32.0-35.9); MEAN CELL VOLUME 85.7 fl (80-96); MEAN PLT VOLUME 6.6 fl (7.5-11.1); MONO % 10.3 % (3.8-10.2); NEUT % 78.3 % (42.8-82.8); PLATELET COUNT 262 K/MM3 (134-434); RBC 3.22 M/mm3 (4.00-5.60); RDW 12.7 % (11.9-15.9); WHITE BLOOD COUNT 9.8 K/mm3 (4.0-10.0)
[2017-12-05] MEDS ORDERED: PIPERACILLIN/TAZOB 2.25 GM 2.25 GM in DEXTROSE 5%-WATER - 50 ML IVPB SCH (08:30)
[2017-12-05 08:37] LABS: ANION GAP 14 MMOL/L (8-16); BLOOD UREA NITROGEN 13 mg/dL (7-18); CHLORIDE 95 mmol/L (98-107); CO2 24 mmol/L (21-32); GLUCOSE,RANDOM 117 mg/dL (74-106); POTASSIUM 3.1 mmol/L (3.5-5.1); SODIUM 133 mmol/L (136-145)
[2017-12-05 08:38] LABS: CALCIUM 7.8 mg/dL (8.5-10.1); CREATININE 1.5 mg/dL (0.7-1.3); MAGNESIUM 1.2 mg/dL (1.8-2.4); PHOSPHOROUS 2.5 mg/dL (2.5-4.9)
[2017-12-05] MEDS ORDERED: PIPERACILLIN/TAZOB 2.25 GM 2.25 GM in DEXTROSE 5%-WATER - 50 ML IVPB ONE (08:45)
[2017-12-05] MEDS ORDERED: PIPERACILLIN/TAZOBACTAM 2.25 GM VIAL IVPB ONE (09:00)
[2017-12-05] MEDS ORDERED: DEXTROSE 5%-WATER - 50 ML IVPB ONE (09:01)
--- NOTE | 2017-12-05 09:12 | PN ---
Progress Note (short form) - Note Progress Note: ID consult dictated Patient known to me recent admission for Legionella pneumonia/encephalitis SALBADOR/Rhabdomylosis did will completed 14 days of levaquin d/esther to NH on HD via PC reports last HD was one week ago- has been off since then admitted with fever for 24 hours at [place] pain right neck at catheter site I received a call from ER MD- advised vanco/zosyn and d/c pc blood cultures +GPC clusters PC has been refused he reports no neck pain at catheter site today catheter related bacteremia continue vancomycin will discuss dosing with renal repeat blood cultures in am echo in am history of legionella- will repeat serology (convalascent) was here 11/01 to 11/15 Problem List - Problems (1) Sepsis Code(s): A41.9 - SEPSIS, UNSPECIFIED ORGANISM Qualifiers: Sepsis type: sepsis due to unspecified organism Qualified Code(s): A41.9 - Sepsis, unspecified organism (2) Bacteremia associated with intravascular line Code(s): T82.7XXA - INFECT/INFLM REACT D/T OTH CARDI/VASC DEV/IMPLNT/GRFT, INIT ; R78.81 - BACTEREMIA
[2017-12-05] MEDS ORDERED: VANCOMYCIN 1,000 MG in DEXTROSE 5%-WATER - 250 ML IVPB SCH (09:15)
[2017-12-05] MEDS ORDERED: MAGNESIUM SULF 50% (8.12 MEQ/2 ML-1 GM VIAL) IVPB ONE (10:57)
[2017-12-05] MEDS ORDERED: POTASSIUM CHLORIDE TABS 20 MEQ TABLET.ER (FP) PO ONE (11:08)
--- NOTE | 2017-12-05 11:21 | PN ---
Progress Note (short form) - Note Progress Note: Subjective: feels better. neck pain has resolved. reports 2 episodes of diarrhea last night. no cp or SOB, no abd pain, no joint pain . Objective: Vital Signs: Last Vital Signs Temp Pulse Resp BP Pulse Ox 99.6 F 127 H 20 118/61 98 12/05/17 06:00 12/05/17 06:00 12/05/17 06:00 12/05/17 06:00 12/04/17 21:05 Laboratory Results - last 24 hr 12/04/17 12/04/17 12/04/17 16:35 16:35 16:35 WBC 11.6 H RBC 3.91 L Hgb 11.6 L Hct 33.3 L D MCV 85.1 MCH 29.6 MCHC 34.8 RDW 12.9 Plt Count 329 D MPV 6.6 L Absolute Neuts (auto) 9.5 H Neutrophils % 81.7 Lymphocytes % 7.8 L D Monocytes % 10.0 D Eosinophils % 0.1 D Basophils % 0.4 Nucleated RBC % 0 PT with INR 16.00 H INR 1.42 H PTT (Actin FS) 37.2 H VBG pH 7.58 H POC VBG pCO2 27.8 L POC VBG pO2 59.7 H Mixed VBG HCO3 26.4 H Sodium Potassium Chloride Carbon Dioxide Anion Gap BUN Creatinine Creat Clearance w eGFR Random Glucose Lactic Acid Calcium Phosphorus Magnesium Total Bilirubin AST ALT Alkaline Phosphatase Creatine Kinase Troponin I Total Protein Albumin Urine Color Urine Appearance Urine pH Ur Specific [place] Urine Protein Urine Glucose (UA) Urine Ketones Urine Blood Urine Nitrite Urine Bilirubin Urine Urobilinogen Ur Leukocyte Esterase 12/04/17 12/04/17 12/04/17 16:35 16:35 16:40 WBC RBC Hgb Hct MCV MCH MCHC RDW Plt Count MPV Absolute Neuts (auto) Neutrophils % Lymphocytes % Monocytes % Eosinophils % Basophils % Nucleated RBC % PT with INR INR PTT (Actin FS) VBG pH POC VBG pCO2 POC VBG pO2 Mixed VBG HCO3 Sodium 131 L Potassium 3.1 L D Chloride 91 L Carbon Dioxide 26 Anion Gap 14 BUN 17 D Creatinine 1.7 H Creat Clearance w eGFR 47.25 Random Glucose 119 H Lactic Acid 1.4 Calcium 9.4 Phosphorus Magnesium Total Bilirubin 0.8 AST 24 D ALT 61 D Alkaline Phosphatase 154 H D Creatine Kinase Troponin I < 0.02 D Total Protein 8.1 Albumin 3.7 Urine Color Urine Appearance Urine pH Ur Specific [place] Urine Protein Urine Glucose (UA) Urine Ketones Urine Blood Urine Nitrite Urine Bilirubin Urine Urobilinogen Ur Leukocyte Esterase 12/04/17 12/04/17 12/04/17 17:30 18:06 18:39 WBC RBC Hgb Hct MCV MCH MCHC RDW Plt Count MPV Absolute Neuts (auto) Neutrophils % Lymphocytes % Monocytes % Eosinophils % Basophils % Nucleated RBC % PT with INR INR PTT (Actin FS) VBG pH POC VBG pCO2 POC VBG pO2 Mixed VBG HCO3 Sodium Potassium Chloride Carbon Dioxide Anion Gap BUN Creatinine Creat Clearance w eGFR Random Glucose Lactic Acid Calcium Phosphorus Magnesium Total Bilirubin AST ALT Alkaline Phosphatase Creatine Kinase 28 L 28 L Troponin I Total Protein Albumin Urine Color Yellow Urine Appearance Clear Urine pH 5.0 Ur Specific [place] 1.013 Urine Protein Negative Urine Glucose (UA) Negative Urine Ketones Negative Urine Blood Negative Urine Nitrite Negative Urine Bilirubin Negative Urine Urobilinogen Negative Ur Leukocyte Esterase Negative 12/04/17 12/04/17 12/05/17 21:44 21:44 06:10 WBC 9.8 RBC 3.22 L Hgb 9.6 L Hct 27.6 L D MCV 85.7 MCH 30.0 MCHC 34.9 RDW 12.7 Plt Count 262 D MPV 6.6 L Absolute Neuts (auto) 7.7 Neutrophils % 78.3 Lymphocytes % 10.4 D Monocytes % 10.3 H Eosinophils % 0.5 D Basophils % 0.5 Nucleated RBC % 0 PT with INR INR PTT (Actin FS) VBG pH POC VBG pCO2 POC VBG pO2 Mixed VBG HCO3 Sodium Potassium Chloride Carbon Dioxide Anion Gap BUN Creatinine Creat Clearance w eGFR Random Glucose Lactic Acid 1.2 Calcium Phosphorus 2.8 D Magnesium 0.9 L D Total Bilirubin AST ALT Alkaline Phosphatase Creatine Kinase Troponin I Total Protein Albumin Urine Color Urine Appearance Urine pH Ur Specific [place] Urine Protein Urine Glucose (UA) Urine Ketones Urine Blood Urine Nitrite Urine Bilirubin Urine Urobilinogen Ur Leukocyte Esterase 12/05/17 06:10 WBC RBC Hgb Hct MCV MCH MCHC RDW Plt Count MPV Absolute Neuts (auto) Neutrophils % Lymphocytes % Monocytes % Eosinophils % Basophils % Nucleated RBC % PT with INR INR PTT (Actin FS) VBG pH POC VBG pCO2 POC VBG pO2 Mixed VBG HCO3 Sodium 133 L Potassium 3.1 L Chloride 95 L Carbon Dioxide 24 Anion Gap 14 BUN 13 Creatinine 1.5 H Creat Clearance w eGFR 54.59 Random Glucose 117 H Lactic Acid Calcium 7.8 L Phosphorus 2.5 Magnesium 1.2 L D Total Bilirubin AST ALT Alkaline Phosphatase Creatine Kinase Troponin I Total Protein Albumin Urine Color Urine Appearance Urine pH Ur Specific [place] Urine Protein Urine Glucose (UA) Urine Ketones Urine Blood Urine Nitrite Urine Bilirubin Urine Urobilinogen Ur Leukocyte Esterase Physical Exam: NAD. AAOx3. HEENT: MMM, no facial droop. EOMI, R lower neck tenderness with thickened vessel. site of permacath with no erythema or tenderness Lungs: CTAB CV: RRR, 2/6 Sm at LUSB . Abd: soft, NT, ND, NL BS Ext: no edema or erythema in upper or lower extremities. Assessment/Plan: 32 y/o man with h/o recent admission to [facility] for sepsis /leginella PNA, SALBADOR, Rhabdo, and demand ischemia who was started on HD and was sent to rehab. he comes back with fever and R sided neck pain. 1- Sepsis due to BActeremia : G+ cocci in clusters from permacath infection . s/p removal of cath last night . - cont vanco. 1250 mg BID .cR cl 88%. No longer on HD - appreciate ID input - repeat cx in am . - Echo to r/o endocarditis . a systolic mummer is heard in pulmonary area. - trough before 4th dose 2- h/o recent SALBADOR due to rabdo: lasT HD on 11/29 . - will d/w renal - avoid inserting any cath while bacteremic if not urgently needed - looks euvolemic . per him he was not given any torsemide since 11/29 , but [facility] records indicate it as active med. will d/w Dr. Edmondson 4- replete hypomagnesemia and hypokalemia 5- Recent Legionella PNA :Legionella Abs ordered 6- order PT due to severe deconditioning last admission requiring rehab. Visit type - Emergency Visit Emergency Visit: Yes ED Registration Date: 12/04/17 Care time: The patient presented to the Emergency Department on the above date and was hospitalized for further evaluation of their emergent condition. - New Patient This patient is new to me today: Yes Date on this admission: 12/05/17 - Critical Care Critical Care patient: No
[2017-12-05] MEDS: VANCOMYCIN 1,250 MG in DEXTROSE 5%-WATER - 250 ML IVPB SCH ×2 (11:40→22:14)
[2017-12-05] MEDS ORDERED: ACETAMINOPHEN 325 MG TABLET (FP) PO PRN (11:53)
--- NOTE | 2017-12-05 12:24 | CONSULT ---
Consult Consult Specialty:: Nephrology ( [place]/ [place]) Reason for Consultation:: Patient with Kidney failure from SALBADOR, s/p on HD - History of Present Illness Chief Complaint: Fever, infected permacath History of Present Illness: 32 yo male presents from [facility] for high fevers. Pt was recently discharged after an ICU admission for Legionella sepsis, rhabdo , ARFwhich was dependent on dialysis, but now off dialysis because of renal recovery. Patient states he has been doing well in rehab with improvements in ambulation but states he started to feel really warm, nauseous and had tenderness to the area around his perm cath. Patient denies CP, SOB, abdominal pain or changes with urinary/bowel movements. He has good urine output. No chest pain, no shortness of breath, no urinary complaints. - History Source History Provided By: Patient Limitations to Obtaining History: No Limitations - Past Medical History Gastrointestinal: No: Constipation, GI Bleed Renal/: Yes: Renal Failure, Hemodialysis - Alcohol/Substance Use Hx Alcohol Use: No - Smoking History Smoking history: Former smoker Have you smoked in the past 12 months: Yes Aproximately how many cigarettes per day: 5 Home Medications - Allergies Allergies/Adverse Reactions: Allergies Allergy/AdvReac Type Severity Reaction Status Date / Time lactose Allergy Verified 11/03/17 11:51 - Home Medications Home Medications: Ambulatory Orders Ergocalciferol (Vitamin D2) [Drisdol] 50,000 unit PO WEEKLY 12/04/17 Hydrocortisone 2.5% Topical Cr [Anusol 2.5% Hc Cream -] 1 applic RC BID Torsemide [Demadex] 80 mg PO DAILY 12/04/17 Review of Systems - Review of Systems Constitutional: reports: Chills, Fever, Loss of Appetite Neck: reports: Pain on Movement Cardiovascular: denies: Chest Pain, Shortness of Breath Respiratory: denies: Cough, Hemoptysis Gastrointestinal: denies: Abdominal Pain Genitourinary: denies: Burning, Dysuria Musculoskeletal: reports: Muscle Pain. denies: Back Pain Neurological: reports: No Symptoms Endocrine: reports: No Symptoms Hematology/Lymphatic: reports: No Symptoms Psychiatric: reports: No Symptoms Physical Exam Vital Signs: Vital Signs Temperature 100.6 F H 12/05/17 10:00 Pulse Rate 118 H 12/05/17 10:00 Respiratory Rate 16 12/05/17 10:00 Blood Pressure 126/50 12/05/17 10:00 O2 Sat by Pulse Oximetry (%) 98 12/04/17 21:05 Constitutional: Yes: Calm Eyes: Yes: Conjunctiva Clear HENT: Yes: Normocephalic Neck: Yes: Trachea Midline Cardiovascular: Yes: Regular Rate and Rhythm, S1, S2 Respiratory: Yes: CTA Bilaterally, Diminished Gastrointestinal: Yes: Normal Bowel Sounds, Soft Renal/: No: Bladder Distention, CVA Tenderness - Left, CVA Tenderness - Right Musculoskeletal: Yes: Muscle Pain. No: Joint Stiffness Edema: No Neurological: Yes: Alert, Oriented Labs: CBC, BMP 12/05/17 06:10 12/05/17 06:10 Problem List - Problems (1) Bacteremia associated with intravascular line Code(s): T82.7XXA - INFECT/INFLM REACT D/T OTH CARDI/VASC DEV/IMPLNT/GRFT, INIT ; R78.81 - BACTEREMIA (2) Sepsis Code(s): A41.9 - SEPSIS, UNSPECIFIED ORGANISM Qualifiers: Sepsis type: sepsis due to unspecified organism Qualified Code(s): A41.9 - Sepsis, unspecified organism (3) Acute kidney failure Code(s): N17.9 - ACUTE KIDNEY FAILURE, UNSPECIFIED Qualifiers: Acute renal failure type: unspecified Qualified Code(s): N17.9 - Acute kidney failure, unspecified Assessment/Plan 32 yo male presents from [facility] for high fevers. The patient was on HD for SALBADOR related to Legionella associated Rhabdomyolysis, and Myoglobinuric Renal failure. The Renal functions are improved since. The patient is putting out large amounts of urine. IMP: Catheter related sepsis. The Permacath has been removed. The Acute Kidney failure has resolved to a point where he dos not require dialysis anymore. Mild Hypokalemia is noted, possibly related to urinary K loss in renal recovery. Suggest: IV fluids as ordered. IV antibiotics as ordered. Will monitor the trough levels to modify the dose. Patient does not require any further dialysis, or replacement of HD catheter. KCl supplements as ordered. Will hold off on loop diuretics at this point. Will not start Torsemide at this point. Thank you. Will follow with you. Thank you. Tiara Ribera MD
--- NOTE | 2017-12-05 12:32 | CONS ---
DATE OF CONSULTATION: DATE OF DICTATION: 12/05/2017 REQUESTED BY: Hospitalist Service Yuliya Ryder MD HISTORY OF PRESENT ILLNESS: This is a 32-year-old man who I know well. He had a recent admission in October from the to the . At that time he was admitted with acute renal failure, rhabdomyolysis, lethargy, mental status changes, diarrhea, and pneumonia. He was found to have Legionella. He was admitted to the ICU. He required dialysis. He was never intubated. He was ultimately treated for 14 days with Levaquin for Legionella sepsis essentially. He was seen by Vascular and he had a PermCath placed on November 09, 2017 as his renal function had not recovered and he was discharged for rehabilitation on November 15, [address] with the PermCath in place. He now comes to the emergency room yesterday with being sent from the custodial with reports of fever for the prior 24 hours reported as high as 104 to 105 at the custodial. He reported pain at his neck. He reports he had completed his last dialysis on the prior Wednesday and was no longer on dialysis with plans for discharge. I received a call from the emergency room resident who discussed the case with me. I advised him to start the patient on antibiotics for catheter-related infection with vancomycin and Zosyn and I asked him to consult Vascular Surgery for PermCath removal. Overnight the PermCath has been removed and he has received vancomycin. He is currently resting comfortably. He reports his neck discomfort has resolved and he is feeling well. He is afebrile. Blood cultures 2 of 4 bottles have been reported with Gram positive cocci. He is lactose intolerant. PAST MEDICAL HISTORY: Was unremarkable prior to this admission as well as his surgical history but he essentially underwent acute renal failure with rhabdomyolysis, Legionella pneumonia, encephalopathy, and required PermCath placement. SOCIAL HISTORY: He was living with his parents. He was working; he recently had started a job at [employer]. He was tested last admission and was HIV negative. REVIEW OF SYSTEMS: He has no cough, shortness of breath, nausea, vomiting or diarrhea. He reports he had some nausea and vomiting prior to admission which have resolved. MEDICATIONS: His medications at the custodial include furosemide daily, vitamin D daily, and hydrocortisone cream daily. PHYSICAL EXAMINATION: General: He is awake and alert. Vital Signs: T-Max was 104.8 on admission currently 99.6 this morning, pulse of 127, blood pressure is 118/61, and respiratory rate is 20. He weighs 87 kg. HEENT: He is normocephalic. His eyes are anicteric. Neck: Supple. Lungs: Clear to auscultation. Heart: Regular rate and rhythm. Abdomen: PermCath site currently there is no purulent discharge, there is no erythema. It is minimally tender to touch. His abdomen is soft and nontender. Extremities: Without edema. LABORATORY DATA: White count yesterday was 11.6, this morning is 9.8, hemoglobin 9.6, and platelets are 262. His BUN and creatinine are 13 and 1.5. Urinalysis is negative. Blood cultures as stated 2 of 4 bottles are growing Gram positive cocci in clusters. Chest x-ray showed some minimal congestion. In summary, this is a 32-year-old man admitted for fever and catheter-related bacteremia. Would continue vancomycin. Will discuss his dosing with Renal. Repeat blood cultures in the morning and echocardiogram in the morning. Duplex neck veins. History of Legionella, we will repeat serology. Convalescence has been 1 month now with further recommendations to follow. Cely [id number] MTDD
[2017-12-05] MEDS: POTASSIUM CHLORIDE TABS 10 MEQ TABLET.ER (FP) PO SCH ×2 (13:52→22:14)
--- NOTE | 2017-12-05 14:15 | CON.CARD ---
Consult Consult Specialty:: Cardiology Referred by:: romy Main Reason for Consultation:: r/o endocarditis - History of Present Illness Chief Complaint: Fever History of Present Illness: 32 year old male who was admitted a month ago with sepsis 2/2 to legionella pna/ rhabodmyolysis and ARF requiring dialysis via permacath. No returns with fever , nausea, and tenderness at permacath site. No chest pain or sob. No pnd, orthopnea, or edema. Febrile to 104s Tachycardic Bld Cx's + - History Source History Provided By: Patient, Family Member, Medical Record - Past Medical History Gastrointestinal: No: Constipation, GI Bleed Renal/: Yes: Renal Failure, Hemodialysis - Alcohol/Substance Use Hx Alcohol Use: No - Smoking History Smoking history: Former smoker Have you smoked in the past 12 months: Yes Aproximately how many cigarettes per day: 5 Home Medications - Allergies Allergies/Adverse Reactions: Allergies Allergy/AdvReac Type Severity Reaction Status Date / Time lactose Allergy Verified 11/03/17 11:51 - Home Medications Home Medications: Ambulatory Orders Ergocalciferol (Vitamin D2) [Drisdol] 50,000 unit PO WEEKLY 12/04/17 Hydrocortisone 2.5% Topical Cr [Anusol 2.5% Hc Cream -] 1 applic RC BID Torsemide [Demadex] 80 mg PO DAILY 12/04/17 Vital Signs: Vital Signs Temperature 100.6 F H 12/05/17 10:00 Pulse Rate 118 H 12/05/17 10:00 Respiratory Rate 16 12/05/17 10:00 Blood Pressure 126/50 12/05/17 10:00 O2 Sat by Pulse Oximetry (%) 98 12/04/17 21:05 Constitutional: Yes: No Distress Neck: Yes: Supple Respiratory: Yes: CTA Bilaterally Gastrointestinal: Yes: Soft Cardiovascular: Yes: Regular Rate and Rhythm JVD: No Carotid Bruit: No Heart Sounds: Yes: S1, S2 Murmur: No: Systolic Murmur Edema: No - Other Data Labs, Other Data: CBC, BMP 12/05/17 06:10 12/05/17 06:10 INR, PTT INR 1.42 (0.83-1.09) H 12/04/17 16:35 Troponin, BNP 12/04/17 16:40 Troponin I < 0.02 D Troponin, BNP 12/04/17 16:40 Troponin I < 0.02 D Assessment/Plan 32 year old male who was admitted a month ago with sepsis 2/2 to legionella pna/ rhabodmyolysis and ARF requiring dialysis via permacath. No returns with fever , nausea, and tenderness at permacath site. No chest pain or sob. No pnd, orthopnea, or edema. Febrile to 104s Tachycardic Bld Cx's + 1) Bacteremia -given bld cx's would plan for echocardiogram to further evaluate valve anatomy for endocarditis. -Treat with Abx as per primary team permacath removed No signs of chf on exam. No significant murmurs. 12 lead ekg
[2017-12-05] MEDS: SODIUM CHLORIDE 1,000 ML IV SCH (22:20)
[2017-12-06] MEDS: HEPARIN NA (PORCINE) 5,000 UNITS/ML 1ML VIAL SQ SCH (06:59)
[2017-12-06 08:01] LABS: ALBUMIN 2.5 g/dl (3.4-5.0); ANION GAP 11 MMOL/L (8-16); BLOOD UREA NITROGEN 11 mg/dL (7-18); CALCIUM 8.2 mg/dL (8.5-10.1); CHLORIDE 99 mmol/L (98-107); CO2 25 mmol/L (21-32); GLUCOSE,RANDOM 95 mg/dL (74-106); POTASSIUM 3.1 mmol/L (3.5-5.1); SGOT/AST 27 U/L (15-37); SODIUM 135 mmol/L (136-145)
[2017-12-06 08:03] LABS: ALK PHOS 99 U/L (45-117); BILIRUBIN,TOTAL 0.6 mg/dL (0.2-1.0); CREATININE 1.3 mg/dL (0.7-1.3); SGPT/ALT 54 U/L (12-78); TOT PROT 5.7 g/dl (6.4-8.2)
[2017-12-06] MEDS ORDERED: POTASSIUM CHLORIDE TABS 20 MEQ TABLET.ER (FP) PO ONE (08:16)
--- NOTE | 2017-12-06 09:33 | PN ---
Progress Note (short form) - Note Progress Note: 32yo M admitted for infected Right chest permacath, which was removed at bedside on Monday 12/[address] Vallecillo. Pt states that he is feeling well denies pain around catheter site, no drainage or bleeding. Pt denies fever, chills, n/ v. CBC, BMP 12/05/17 06:10 12/06/17 07:00 Last Vital Signs Temp Pulse Resp BP Pulse Ox 98.6 F 93 H 20 120/68 98 12/06/17 07:08 12/06/17 07:08 12/06/17 07:08 12/06/17 07:08 12/05/17 21:00 PE: Gen: A&O x3 Resp: breathing comfortably Chest: TDC site is clean with no erythema or discharge Problem List - Problems (1) Bacteremia associated with intravascular line Assessment/Plan: Plan -pt renal function appears to have recovered so nephrology is not recommending future dialysis at this time. So there is no plan to replace dialysis catheter at this time. -otherwise pt doing well and improving. -please contact vascular team if situation changes and need future dialysis access. Pt discussed with Dr. Vallecillo who agrees with plan Code(s): T82.7XXA - INFECT/INFLM REACT D/T OTH CARDI/VASC DEV/IMPLNT/GRFT, INIT ; R78.81 - BACTEREMIA
[2017-12-06] MEDS: POTASSIUM CHLORIDE TABS 10 MEQ TABLET.ER (FP) PO SCH ×2 (09:59→22:21)
--- NOTE | 2017-12-06 10:41 | EKG ---
Test Reason : Blood Pressure : / mmHG Vent. Rate : 135 BPM Atrial Rate : 135 BPM P-R Int : 126 ms QRS Dur : 074 ms QT Int : 286 ms P-R-T Axes : 032 057 038 degrees QTc Int : 429 ms SINUS TACHYCARDIA T WAVE ABNORMALITY, CONSIDER INFEROLATERAL ISCHEMIA ABNORMAL ECG WHEN COMPARED WITH ECG OF 31-OCT-2017 18:31, T WAVE INVERSION NOW EVIDENT IN INFERIOR LEADS T WAVE INVERSION NOW EVIDENT IN ANTEROLATERAL LEADS VENT. RATE HAS INCREASED Confirmed by CARMINA BENDER MD ([id number]) on 12/06/2017 10:41:11 AM Referred By: Confirmed By:CARMINA BENDER MD
--- NOTE | 2017-12-06 11:52 | ECHO ---
Name: ENEDIA CUMMINS Exam:Adult Echocardiogram Study Date: 12/06/2017 10:44 AM Age: 32 yrs Reason For Study: R/O Endocarditis only Height: 74 in Weight: 193 lb BSA: 2.1 m2 Procedure A limited two-dimensional transthoracic echocardiogram was performed (2D). Left Ventricle The left ventricle is normal in size. Left ventricular systolic function is normal. No regional wall motion abnormalities noted. Right Ventricle The right ventricle is normal size. The right ventricular systolic function is normal. Mitral Valve There is mild mitral annular calcification. There is no vegetation seen on the mitral valve. There is no mitral regurgitation noted. Tricuspid Valve The tricuspid valve is normal in structure and function. There is no tricuspid valve vegetation. Ther e is mild tricuspid regurgitation. Aortic Valve The aortic valve is normal in structure and function. There is no aortic valvular vegetation. No aort ic regurgitation is present. Pulmonic Valve The pulmonic valve is not well visualized. There is no vegetation on the pulmonic valve. Great Vessels The aortic root is normal size. Pericardium/Pleura There is no pericardial effusion. Interpretation Summary The left ventricle is normal in size. Left ventricular systolic function is normal. No regional wall motion abnormalities noted. There is mild mitral annular calcification. There is mild tricuspid regurgitation. There is no pericardial effusion. There are no evidence of vegetations on any of the valves. Clinical correlation is recommended Osmani Rainey MD 12/06/2017 11:51 AM
[2017-12-06 13:15] LABS: BASO % 0.7 % (0-2.0); EOS % 4.4 % (0-4.5); HEMATOCRIT 28.2 % (35.4-49); HEMOGLOBIN 9.8 GM/dL (11.7-16.9); LYMPH % 22.6 % (8-40); MCHC 34.8 g/dl (32.0-35.9); MEAN CELL VOLUME 86.2 fl (80-96); MEAN PLT VOLUME 6.6 fl (7.5-11.1); MONO % 17.9 % (3.8-10.2); NEUT % 54.4 % (42.8-82.8); RBC 3.27 M/mm3 (4.00-5.60); RDW 12.4 % (11.9-15.9); WHITE BLOOD COUNT 5.9 K/mm3 (4.0-10.0)
--- NOTE | 2017-12-06 13:37 | PN ---
Teaching Attending Note Name of Resident: Barney Justin ATTENDING PHYSICIAN STATEMENT I saw and evaluated the patient. I reviewed the resident's note and discussed the case with the resident. I agree with the resident's findings and plan as documented. SUBJECTIVE: No fever or chills . No abd pain. no CP or SOB. has no HATCH or visual changes. No neck pain. mom brought up head shakes which started last admission, improved but not resolved. OBJECTIVE: NAD. AAOx3. slightly disarthric abnormal speech HEENT: MMM, no facial droop. EOMI, R lower neck tenderness with thickened vessel. site of permacath with no erythema or tenderness Lungs: CTAB CV: RRR, 2/6 SM at LUSB . Abd: soft, NT, ND, NL BS Ext: no edema or erythema in upper or lower extremities. Assessment/Plan: 32 y/o man with h/o recent admission to [facility] for sepsis /leginella PNA, SALBADOR, Rhabdo, and demand ischemia who was started on HD and was sent to rehab. he comes back with fever and R sided neck pain. 1- Sepsis due to MRSA bacteremia form infected HD catheter. : s/p removal of cath - cont vanco. trough noted - repeat cx sent - Echo with vegetations . 2- h/o recent SALBADOR due to rabdo: renal function recovered and does not need HD again 3- R internal Jugular vein thrombosis. s/p cath removal. - will start Lovenox given proximal thrombosis. will d/w vascular 4- Recent legionella PNA and sepsis. follow Legionella Abs PT eval.
--- NOTE | 2017-12-06 14:08 | PN ---
Progress Note (short form) - Note Progress Note: no fevers today no complaints Vital Signs Period Temp Pulse Resp BP Sys/Dangelo Pulse Ox Last 24 Hr 98.6 F-99.7 F 93-115 20-20 120-135/65-68 98-100 cor-rrr lungs decreased bs at bases abd soft,nt ext no edema CBC, BMP 12/06/17 12:35 12/06/17 07:00 Microbiology 12/06/17 07:00 Serum Legionella Serology - Preliminary 12/04/17 20:01 Catheter Site Gram Stain - Final 12/04/17 20:01 Catheter Site Wound Culture - Preliminary 12/04/17 17:30 Urine - Urine Clean Catch Urine Culture - Preliminary Staphylococcus Latex Coag Pos 12/04/17 16:35 Blood - Peripheral Venous Blood Culture - Preliminary Presumptive Mrsa (Pbp2a Pos) 12/04/17 16:35 Blood - Peripheral Venous Blood Culture - Preliminary Presumptive Mrsa (Pbp2a Pos) ultrasound + right IJ thrombus Laboratory Tests 12/06/17 08:45 Vancomycin Pre-Dose 21.87 H* a/p catheter related bacteremia-MRSA -permacath has been removed continue vancomycin-dose adjusted for elevated trough repeat blood cultures pending echo no vegetations Right IJ thrombus- on anticoagulation history recent ARF/rhabdomyolysis requiring HD history of legionella- will repeat serology (convalascent) was here 11/01 to 11/15 Problem List - Problems (1) Sepsis Code(s): A41.9 - SEPSIS, UNSPECIFIED ORGANISM Qualifiers: Sepsis type: sepsis due to unspecified organism Qualified Code(s): A41.9 - Sepsis, unspecified organism (2) Bacteremia associated with intravascular line Code(s): T82.7XXA - INFECT/INFLM REACT D/T OTH CARDI/VASC DEV/IMPLNT/GRFT, INIT ; R78.81 - BACTEREMIA
[2017-12-06 15:17] LABS: ACANTHOCYTES 0; ANISOCYTOSIS 0; HELMET CELLS 0; HOWELL-JOLLY BODIES 0; MACROCYTOSIS 0; OVALOCYTE 0; PLATELET ESTIMATE NORMAL; ROULEAU 0; SICKELED CELLS 0; TARGET CELLS 0; TEAR DROP CELLS 0; TOXIC GRANULATION 0
[2017-12-06 15:19] LABS: PLATELET COUNT 225 K/MM3 (134-434)
[2017-12-06] MEDS ORDERED: PT OWN MED DRAWER 7, Y5N ONE ×2 (15:26→22:10)
[2017-12-06] MEDS: ENOXAPARIN NA (PORCINE) 100 MG/1 ML DISP.SYRIN SQ SCH ×2 (15:28→22:21)
--- NOTE | 2017-12-06 15:43 | PN ---
Physical Exam: SUBJECTIVE: Patient seen and examined at bedside. Feels much better. No complaints. OBJECTIVE: Vital Signs Period Temp Pulse Resp BP Sys/Dangelo Pulse Ox Last 24 Hr 98.4 F-99.7 F 93-115 16-20 115-135/62-68 98-100 GENERAL: A&O x 3, NAD HEAD: NC/AT EYES: PERRLA, EOMI EARS, NOSE, THROAT: Moist mucous membranes. NECK: R neck tender w/ thickened vessel LUNGS: Breath sounds equal, clear to auscultation bilaterally. No wheezes, and no crackles. No accessory muscle use. HEART: Tachycardic, no m/r/g ABDOMEN: Soft, nontender, not distended, normoactive bowel sounds, no guarding, no rebound, no masses. No hepatomegaly or splenomegaly. EXTREMITIES: No stigmata of endocarditis. 2+ pulses, warm, well-perfused. No cyanosis. No clubbing. No calf tenderness. No peripheral edema. NEUROLOGICAL: Dysarthria vs. speech impediment, otherwise no focal deficits. Gait not observed. PSYCHIATRIC: Cooperative. Good eye contact. Appropriate mood and affect. SKIN: Warm, dry, normal turgor, no rashes or lesions noted, normal capillary refill. Laboratory Results - last 24 hr 12/06/17 12/06/17 12/06/17 07:00 08:45 09:00 WBC RBC Hgb Hct MCV MCH MCHC RDW Plt Count MPV Absolute Neuts (auto) Neutrophils % Neutrophils % (Manual) Band Neutrophils % Lymphocytes % Lymphocytes % (Manual) Monocytes % Monocytes % (Manual) Eosinophils % Eosinophils % (Manual) Basophils % Basophils % (Manual) Myelocytes % (Man) Promyelocytes % (Man) Blast Cells % (Manual) Nucleated RBC % Metamyelocytes Hypochromia Toxic Granulation Dohle Bodies Platelet Estimate Platelet Comment Polychromasia Poikilocytosis Basophilic Stippling Anisocytosis Microcytosis Macrocytosis Spherocytes Sickle Cells Target Cells Tear Drop Cells Ovalocytes Stomatocytes Helmet Cells [place] Bodies [place] Rings [place] Cells Acanthocytes (Spur) Rouleaux Fragmented RBCs Schistocytes Sodium 135 L Potassium 3.1 L Chloride 99 Carbon Dioxide 25 Anion Gap 11 BUN 11 Creatinine 1.3 Creat Clearance w eGFR > 60 Random Glucose 95 Calcium 8.2 L Phosphorus 2.9 Magnesium 2.0 D Total Bilirubin 0.6 AST 27 ALT 54 Alkaline Phosphatase 99 D Total Protein 5.7 L D Albumin 2.5 L Vancomycin Pre-Dose 21.87 H* 12/06/17 12:35 WBC 5.9 RBC 3.27 L Hgb 9.8 L Hct 28.2 L MCV 86.2 MCH 30.0 MCHC 34.8 RDW 12.4 Plt Count 225 MPV 6.6 L Absolute Neuts (auto) 3.2 Neutrophils % 54.4 D Neutrophils % (Manual) 46.9 Band Neutrophils % 5.2 Lymphocytes % 22.6 D Lymphocytes % (Manual) 24.0 D Monocytes % 17.9 H Monocytes % (Manual) 19 H D Eosinophils % 4.4 D Eosinophils % (Manual) 5.2 H Basophils % 0.7 Basophils % (Manual) 0.0 Myelocytes % (Man) 0 Promyelocytes % (Man) 0 Blast Cells % (Manual) 0 Nucleated RBC % 0 Metamyelocytes 0 D Hypochromia 0 Toxic Granulation 0 Dohle Bodies 0 Platelet Estimate Normal Platelet Comment No clumping noted Polychromasia 0 Poikilocytosis 0 Basophilic Stippling 0 Anisocytosis 0 Microcytosis 0 Macrocytosis 0 Spherocytes 0 Sickle Cells 0 Target Cells 0 Tear Drop Cells 0 Ovalocytes 0 Stomatocytes 0 Helmet Cells 0 [place] Bodies 0 [place] Rings 0 [place] Cells 0 Acanthocytes (Spur) 0 Rouleaux 0 Fragmented RBCs 0 Schistocytes 0 Sodium Potassium Chloride Carbon Dioxide Anion Gap BUN Creatinine Creat Clearance w eGFR Random Glucose Calcium Phosphorus Magnesium Total Bilirubin AST ALT Alkaline Phosphatase Total Protein Albumin Vancomycin Pre-Dose Active Medications Generic Name Dose Route Start Last Admin Trade Name Freq PRN Reason Stop Dose Admin Acetaminophen 650 mg 12/05/17 11:53 Tylenol - PO Q6H PRN FEVER Enoxaparin Sodium 90 mg 12/06/17 13:30 Lovenox - SQ BID ODILIA Sodium Chloride 1,000 mls @ 75 mls/hr 12/04/17 18:45 12/05/17 22:20 Normal Saline - IV 75 mls/hr ASDIR ODILIA Administration Vancomycin HCl 1 gm in 200 mls @ 166.667 mls/hr 12/06/17 22:00 Vancomycin 1 Gm Premix - IVPB BID [facility] Protocol Potassium Chloride 10 meq 12/05/17 12:45 12/06/17 09:59 K-Dur - PO 10 meq BID ODILIA Administration ASSESSMENT/PLAN: 32 y/o M w/ PMHx 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 Now presents with fever, nausea and NBNB vomiting, and tenderness at permacath site x 1 day. Admitted for sepsis 2/2 permacath infection. #Sepsis 2/2 permacath infection -now afebrile, WBC 5.9 -ID consulted (Dr. Garcia) -BCx and UCx positive for MRSA -WCx preliminary: g+ cocci in chains and clusters -Legionella serology pending -c/w Vancomycin -trough noted, will follow -Zosyn d/c'd -repeat BCx sent -Vascular consulted (Dr. Vallecillo) -pending CXR read, no respiratory symptoms #right IJV thrombus -extensive thrombus found on duplex -Lovenox 90 BID -will follow Dr. Vallecillo's AC reccs #r/o endocarditis -TTE negative -cardiology consulted ([facility]) -will order ANDERS if recommended #h/o ARF, rhabdo -Cr 1.3 -Nephro (Dr. Edmondson) consulted -per nephro, kidney injury is resolved, no need for cath replacement or further dialysis -NS @ 75 #metabolic derangement -on K 10 meq BID, K remains 3.1 -repleted 40meq -following BMP #nausea -resolved -QTc 429 -Zofran PRN #FEN -NS @ 75 -monitor and replete lytes -lactose-free renal diet #PPx -DVT: Lovenox #dispo -admit to med/surg Visit type - Emergency Visit Emergency Visit: No - New Patient This patient is new to me today: No - Critical Care Critical Care patient: No
--- NOTE | 2017-12-06 15:51 | PN ---
Progress Note (short form) - Note Progress Note: Vascular Surgery US reviewed. Pt has a right IJ thrombus. This is secondary to his permacath. It is iatrogenic. Subclavian vein is patent. No thrombus. No need to treat for right IJ thrombus with lovenox. CAn repeat US in one week to see if there is any propagation of the clot. Norberto Vallecillo DO
--- NOTE | 2017-12-06 16:07 | PN ---
Progress Note (short form) - Note Progress Note: Renal follow up for GABE Pt seen and examined at the bedside no acute complaints no fever, chills, sob, abd pain s/p US making urine Vital Signs Temperature 98.4 F 12/06/17 14:48 Pulse Rate 105 H 12/06/17 14:48 Respiratory Rate 16 12/06/17 14:48 Blood Pressure 115/62 12/06/17 14:48 O2 Sat by Pulse Oximetry (%) 100 12/06/17 09:00 Intake & Output 12/03/17 12/04/17 12/05/17 12/06/17 23:59 23:59 23:59 23:59 Intake Total 150 4800 1740 Output Total 0 800 500 Balance 150 4000 1240 Weight 86.183 kg 87.815 kg 86.273 kg NAD RRR, No M/R CTA, no rales or wheeze soft NT/ND No LE edema CBC, BMP 12/06/17 12:35 12/06/17 07:00 Current Medications Acetaminophen (Tylenol -) 650 mg PO Q6H PRN PRN Reason: FEVER Enoxaparin Sodium (Lovenox -) 90 mg SQ BID ODILIA Last Admin: 12/06/17 15:28 Dose: 90 mg Sodium Chloride (Normal Saline -) 1,000 mls @ 75 mls/hr IV ASDIR ODILIA Last Admin: 12/05/17 22:20 Dose: 75 mls/hr Vancomycin HCl (Vancomycin 1 Gm Premix -) 1 gm in 200 mls @ 166.667 mls/hr IVPB BID ODILIA; Protocol Potassium Chloride (K-Dur -) 10 meq PO BID ODILIA Last Admin: 12/06/17 09:59 Dose: 10 meq 32 year old AA gentleman with Hx 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 #Acute Renal failure now improved #MRSA bacteremia #Iatrogenic subclavian vein thrombosis No need for further dialysis Last session of dialysis was 7 days ago Repeat blood cultures w/o growth thus far continue Abx as per ID ? need for A/c for thrombosis vascular follow up Rojas Edmondson DO
--- NOTE | 2017-12-06 17:02 | PN ---
Progress Note, Physician Chief Complaint: Patient appears comfortable, afebrile. Denies chest pain, SOB or palpitation. History of Present Illness: 32 year old man with recent history of sepsis 2/2 to legionella pna/ rhabodmyolysis and ARF requiring dialysis via permacath one months ago readmitted 12/04/2017 with fever, nausea, and tenderness at permacath site. Found to have MRSA bacteremia and cath related subclavian vein thrombosis. Echo 12/06/2017: Normal LV size, wall motion and systolic function. Normal RV. Normal LA and RA in size. No significant valvular abnormalities except mild MAC and mild TR. No evidence of vegetation of any valves. - Current Medication List Current Medications: Active Medications Acetaminophen (Tylenol -) 650 mg PO Q6H PRN PRN Reason: FEVER Enoxaparin Sodium (Lovenox -) 90 mg SQ BID [facility] Last Admin: 12/06/17 15:28 Dose: 90 mg Sodium Chloride (Normal Saline -) 1,000 mls @ 75 mls/hr IV ASDIR [facility] Last Admin: 12/05/17 22:20 Dose: 75 mls/hr Vancomycin HCl (Vancomycin 1 Gm Premix -) 1 gm in 200 mls @ 166.667 mls/hr IVPB BID [facility]; Protocol Potassium Chloride (K-Dur -) 10 meq PO BID [facility] Last Admin: 12/06/17 09:59 Dose: 10 meq - Objective Vital Signs: Vital Signs Temperature 98.4 F 12/06/17 14:48 Pulse Rate 105 H 12/06/17 14:48 Respiratory Rate 16 12/06/17 14:48 Blood Pressure 115/62 12/06/17 14:48 O2 Sat by Pulse Oximetry (%) 100 12/06/17 09:00 General: Well developed. Well nourished. No acute distress. Head: Normocephalic. Atraumatic, Eyes: PERRLA, EOMI. Sclerae anicteric. Conjunctivae clear. Neck: Supple. No JVD. No bruits. Heart: Normal S1, S2: Regularly regular rhythm and rate. No murmur. No gallop or rub. Lungs: Symmetrical air entry. Clear to auscultation. No crackle. No wheezing or rhonchi. Abdomen: Soft. Bowel sound positive. Non tender. No masses. Extremities: No edema. No clubbing or cyanosis. PD 2+, equal bilaterally. Neuro: Intact, no focal findings. AAO X3. Labs: CBC, BMP 12/06/17 12:35 12/06/17 07:00 INR, PTT INR 1.42 (0.83-1.09) H 12/04/17 16:35 Assessment/Plan 32 year old man with recent history of sepsis 2/2 to legionella pna/ rhabodmyolysis and ARF requiring dialysis via permacath one months ago readmitted 12/04/2017 with fever, nausea, and tenderness at permacath site. Found to have MRSA bacteremia and cath related subclavian vein thrombosis. Echo 12/06/2017: Normal LV size, wall motion and systolic function. Normal RV. Normal LA and RA in size. No significant valvular abnormalities except mild MAC and mild TR. No evidence of vegetation of any valves. 1) Bacteremia: -Permacath removed. Followed with ID and receiving IV ABx. No ANDERS as per ID at this time. No signs of CHF on exam. No significant murmurs. Please call us for reconsult as needed.
[2017-12-06] MEDS: SODIUM CHLORIDE 1,000 ML IV SCH (17:25)
[2017-12-06] MEDS: VANCOMYCIN 1 GM PREMIX - 1 GM/200 ML BAG IVPB SCH (22:21)
[2017-12-07 07:07] LABS: BASO % 0.7 % (0-2.0); EOS % 5.4 % (0-4.5); HEMATOCRIT 24.3 % (35.4-49); HEMOGLOBIN 8.3 GM/dL (11.7-16.9); LYMPH % 36.7 % (8-40); MCH 29.2 pg (25.7-33.7); MEAN CELL VOLUME 85.8 fl (80-96); MEAN PLT VOLUME 6.4 fl (7.5-11.1); MONO % 16.1 % (3.8-10.2); NEUT % 41.1 % (42.8-82.8); PLATELET COUNT 195 K/MM3 (134-434); RBC 2.84 M/mm3 (4.00-5.60); RDW 12.7 % (11.9-15.9); WHITE BLOOD COUNT 4.1 K/mm3 (4.0-10.0)
[2017-12-07 07:41] LABS: ANION GAP 8 MMOL/L (8-16); BLOOD UREA NITROGEN 7 mg/dL (7-18); CALCIUM 7.9 mg/dL (8.5-10.1); CHLORIDE 106 mmol/L (98-107); CO2 25 mmol/L (21-32); CREATININE 1.3 mg/dL (0.7-1.3); GLUCOSE,RANDOM 88 mg/dL (74-106); PHOSPHOROUS 3.2 mg/dL (2.5-4.9); POTASSIUM 3.3 mmol/L (3.5-5.1); SODIUM 139 mmol/L (136-145)
[2017-12-07] MEDS ORDERED: POTASSIUM CHLORIDE TABS 20 MEQ TABLET.ER (FP) PO ONE (08:20)
[2017-12-07] MEDS ORDERED: PT OWN MED DRAWER 7, Y5N ONE (09:35)
[2017-12-07] MEDS: ENOXAPARIN NA (PORCINE) 100 MG/1 ML DISP.SYRIN SQ SCH (09:41)
[2017-12-07] MEDS: POTASSIUM CHLORIDE TABS 10 MEQ TABLET.ER (FP) PO SCH ×2 (09:41→21:08)
[2017-12-07] MEDS: VANCOMYCIN 1 GM PREMIX - 1 GM/200 ML BAG IVPB SCH ×2 (09:41→21:38)
[2017-12-07] MEDS: SODIUM CHLORIDE 1,000 ML IV SCH ×2 (09:44→20:57)
[2017-12-07 13:07] LABS: BASO % 0.6 % (0-2.0); EOS % 5.4 % (0-4.5); HEMATOCRIT 22.7 % (35.4-49); HEMOGLOBIN 7.5 GM/dL (11.7-16.9); LYMPH % 35.2 % (8-40); MCH 28.8 pg (25.7-33.7); MCHC 32.8 g/dl (32.0-35.9); MEAN CELL VOLUME 87.7 fl (80-96); MEAN PLT VOLUME 6.3 fl (7.5-11.1); MONO % 16.2 % (3.8-10.2); NEUT % 42.6 % (42.8-82.8); PLATELET COUNT 194 K/MM3 (134-434); RBC 2.59 M/mm3 (4.00-5.60); RDW 12.7 % (11.9-15.9)
--- NOTE | 2017-12-07 13:07 | PN ---
Teaching Attending Note Name of Resident: Barney Justin ATTENDING PHYSICIAN STATEMENT I saw and evaluated the patient. I reviewed the resident's note and discussed the case with the resident. I agree with the resident's findings and plan as documented. SUBJECTIVE: no fever or chills. had bright red blood on paper tissue while wiping . no abd pain, no blood in toilet . OBJECTIVE: NAD. AAOx3. slightly dysarthric abnormal speech HEENT: MMM.No tenderness on R lower neck . thickened vessel. site of permacath with no erythema or tenderness. Lungs: CTAB CV: RRR, 2/6 SM at LUSB . Abd: soft, NT, ND, NL BS Ext: no edema or erythema in upper or lower extremities. Rectal: no external hemorrhoids, nl hair distribution, internal hemorrhoids. no stool in vault , no stool on examiner's finger, fluid obtained was neg for OB Assessment/Plan: 32 y/o man with h/o recent admission to [facility] for sepsis /leginella PNA, SALBADOR, Rhabdo, and demand ischemia who was started on HD and was sent to rehab. he comes back with fever and R sided neck pain. 1- Sepsis due to MRSA bacteremia form infected HD catheter: s/p removal of cath - cont vanco. trough tomorrow evening - repeat cx grew G+ cocci in clusters. - repeat cx tomorrow - will d/w ID need for ANDERS. 2- R internal Jugular vein thrombosis. s/p cath removal. - has rectal bleed on lovenox and drop in his HB. - dc Lovenox and monitor - repeat US in 1 week to see progression /resolution of clot - if no bleed in 2 days , might start low dose aspirin - patient understands and agree 3- h/o recent SALBADOR due to rabdo: renal function recovered and does not need HD again 4-Rectal bleed. small amount seen. no recurrence. rectal exam with internal hemorrhoids. suspect hemorrhoidal bleed . - hold AC - repeat HB. if recurrence will get GI 5- Recent legionella PNA and sepsis. follow Legionella Abs for confirmation PT eval.
--- NOTE | 2017-12-07 14:14 | PN ---
Progress Note (short form) - Note Progress Note: Renal follow up for GABE Pt seen and examined at the bedside no acute complaints has some rectal bleeding yesterday none today no sob, cp, abd pain, n/v/d Vital Signs Temperature 98.0 F 12/07/17 10:00 Pulse Rate 96 H 12/07/17 10:00 Respiratory Rate 20 12/07/17 10:00 Blood Pressure 138/66 12/07/17 10:00 O2 Sat by Pulse Oximetry (%) 100 12/07/17 09:00 Intake & Output 12/04/17 12/05/17 12/06/17 12/07/17 23:59 23:59 23:59 23:59 Intake Total 150 4800 1740 1000 Output Total 0 800 1100 Balance 150 4000 640 1000 Weight 86.183 kg 87.815 kg 86.273 kg 86.727 kg NAD RRR, No M/R CTA, no rales or wheeze soft NT/ND No LE edema CBC, BMP 12/07/17 12:35 12/07/17 06:30 Current Medications Acetaminophen (Tylenol -) 650 mg PO Q6H PRN PRN Reason: FEVER Sodium Chloride (Normal Saline -) 1,000 mls @ 75 mls/hr IV ASDIR ODILIA Last Admin: 12/07/17 09:44 Dose: 75 mls/hr Vancomycin HCl (Vancomycin 1 Gm Premix -) 1 gm in 200 mls @ 166.667 mls/hr IVPB BID ODILIA; Protocol Last Admin: 12/07/17 09:41 Dose: 166.667 mls/hr Potassium Chloride (K-Dur -) 10 meq PO BID ODILAI Last Admin: 12/07/17 09:41 Dose: 10 meq 32 year old AA gentleman with Hx 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 #Acute Renal failure now improved #MRSA bacteremia #Iatrogenic subclavian vein thrombosis Renal function improved and stable continue IV Vanco as per ID trend levels No A/C for thrombosis b/c of bleeding trend H/H Rojas Edmondson DO
--- NOTE | 2017-12-07 15:14 | PN ---
Physical Exam: SUBJECTIVE: Patient seen and examined at bedside. Reported diarrhea x 2 days and noticing red blood on toilet paper at last episode. Otherwise feels comfortable. OBJECTIVE: Vital Signs Period Temp Pulse Resp BP Sys/Dangelo Pulse Ox Last 24 Hr 97.8 F-100.4 F 90-106 16-85 116-138/65-78 100-100 GENERAL: A&O x 3, NAD HEAD: NC/AT EYES: PERRLA, EOMI EARS, NOSE, THROAT: Moist mucous membranes. NECK: R neck tender w/ thickened vessel LUNGS: Breath sounds equal, clear to auscultation bilaterally. No wheezes, and no crackles. No accessory muscle use. HEART: Tachycardic, no m/r/g ABDOMEN: Soft, nontender, not distended, normoactive bowel sounds, no guarding, no rebound, no masses. No hepatomegaly or splenomegaly. EXTREMITIES: No stigmata of endocarditis. 2+ pulses, warm, well-perfused. No cyanosis. No clubbing. No calf tenderness. No peripheral edema. NEUROLOGICAL: Dysarthria vs. speech impediment, otherwise no focal deficits. Gait not observed. PSYCHIATRIC: Cooperative. Good eye contact. Appropriate mood and affect. SKIN: Warm, dry, normal turgor, no rashes or lesions noted, normal capillary refill. BERNICE: no stool in vault, 1 internal hemorrhoid, bedside occult blood negative Laboratory Results - last 24 hr 12/06/17 12/07/17 12/07/17 12:35 06:30 06:30 WBC 4.1 RBC 2.84 L Hgb 8.3 L Hct 24.3 L MCV 85.8 MCH 29.2 MCHC 34.0 RDW 12.7 Plt Count 225 195 MPV 6.4 L Absolute Neuts (auto) 1.7 Neutrophils % 41.1 L D Neutrophils % (Manual) 46.9 Band Neutrophils % 5.2 Lymphocytes % 36.7 D Lymphocytes % (Manual) 24.0 D Monocytes % 16.1 H Monocytes % (Manual) 19 H D Eosinophils % 5.4 H Eosinophils % (Manual) 5.2 H Basophils % 0.7 Basophils % (Manual) 0.0 Myelocytes % (Man) 0 Promyelocytes % (Man) 0 Blast Cells % (Manual) 0 Nucleated RBC % 0 Metamyelocytes 0 D Hypochromia 0 Toxic Granulation 0 Dohle Bodies 0 Platelet Estimate Normal Platelet Comment No clumping noted Polychromasia 0 Poikilocytosis 0 Basophilic Stippling 0 Anisocytosis 0 Microcytosis 0 Macrocytosis 0 Spherocytes 0 Sickle Cells 0 Target Cells 0 Tear Drop Cells 0 Ovalocytes 0 Stomatocytes 0 Helmet Cells 0 [place] Bodies 0 [place] Rings 0 [place] Cells 0 Acanthocytes (Spur) 0 Rouleaux 0 Fragmented RBCs 0 Schistocytes 0 Sodium 139 Potassium 3.3 L Chloride 106 Carbon Dioxide 25 Anion Gap 8 BUN 7 Creatinine 1.3 Creat Clearance w eGFR > 60 Random Glucose 88 Calcium 7.9 L Phosphorus 3.2 Magnesium 2.0 Blood Type Antibody Screen Crossmatch 12/07/17 12/07/17 12:35 12:35 WBC 4.0 RBC 2.59 L Hgb 7.5 L Hct 22.7 L MCV 87.7 MCH 28.8 MCHC 32.8 RDW 12.7 Plt Count 194 MPV 6.3 L Absolute Neuts (auto) 1.7 Neutrophils % 42.6 L Neutrophils % (Manual) Band Neutrophils % Lymphocytes % 35.2 Lymphocytes % (Manual) Monocytes % 16.2 H Monocytes % (Manual) Eosinophils % 5.4 H Eosinophils % (Manual) Basophils % 0.6 Basophils % (Manual) Myelocytes % (Man) Promyelocytes % (Man) Blast Cells % (Manual) Nucleated RBC % 0 Metamyelocytes Hypochromia Toxic Granulation Dohle Bodies Platelet Estimate Platelet Comment Polychromasia Poikilocytosis Basophilic Stippling Anisocytosis Microcytosis Macrocytosis Spherocytes Sickle Cells Target Cells Tear Drop Cells Ovalocytes Stomatocytes Helmet Cells [place] Bodies [place] Rings [place] Cells Acanthocytes (Spur) Rouleaux Fragmented RBCs Schistocytes Sodium Potassium Chloride Carbon Dioxide Anion Gap BUN Creatinine Creat Clearance w eGFR Random Glucose Calcium Phosphorus Magnesium Blood Type O POSITIVE Antibody Screen Negative Crossmatch See Detail Active Medications Generic Name Dose Route Start Last Admin Trade Name Freq PRN Reason Stop Dose Admin Acetaminophen 650 mg 12/05/17 11:53 Tylenol - PO Q6H PRN FEVER Sodium Chloride 1,000 mls @ 75 mls/hr 12/04/17 18:45 12/07/17 09:44 Normal Saline - IV 75 mls/hr ASDIR ODILIA Administration Vancomycin HCl 1 gm in 200 mls @ 166.667 mls/hr 12/06/17 22:00 12/07/17 09:41 Vancomycin 1 Gm Premix - IVPB 166.667 mls/hr BID ODILIA Administration Protocol Potassium Chloride 10 meq 12/05/17 12:45 12/07/17 09:41 K-Dur - PO 10 meq BID ODILIA Administration ASSESSMENT/PLAN: 32 y/o M w/ 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 Now presents with fever, nausea and NBNB vomiting, and tenderness at permacath site x 1 day. Admitted for sepsis 2/2 permacath infection. #Sepsis 2/2 permacath infection -ID consulted (Dr. Garcia) -BCx and UCx positive for MRSA -repeat BCx positive for g+ cocci in clusters -WCx pending organisms -Legionella serology positive -c/w Vancomycin -trough noted, will follow -Vascular consulted (Dr. Vallecillo) #bleeding -Pt noted rectal blood -Hgb yesterday 9.8, this morning 8.3, this afternoon 7.5 -1 unit PRBC ordered, will repeat CBC this evening #right IJV thrombus -extensive thrombus found on duplex -Lovenox d/c'd d/t bleeding -will repeat duplex in 1 weeks #r/o endocarditis -TTE negative -cardiology consulted ([facility]) -will order ANDERS if recommended #h/o ARF, rhabdo -Cr 1.3 -Nephro (Dr. Edmondson) consulted -per nephro, kidney injury is resolved, no need for cath replacement or further dialysis -NS @ 75 #metabolic derangement -repleting K, Mg as necessary -following BMP, Mg, Phos #nausea -resolved -QTc 429 -Zofran PRN #FEN -NS @ 75 -monitor and replete lytes -lactose-free renal diet #PPx -DVT: SCD's #dispo -med/surg Visit type - Emergency Visit Emergency Visit: No - New Patient This patient is new to me today: No - Critical Care Critical Care patient: No
--- NOTE | 2017-12-07 16:09 | CON.GI ---
Consult Consult Specialty:: GI: Dr. Hill covering for Dr. Mora who resumes coverage 12/08 Referred by:: Hospitalist Service Reason for Consultation:: Anemia - History of Present Illness Chief Complaint: Anemia History of Present Illness: 32M with complicated course of legionnaire's leading to rhebdomyolysis, ARF requiring HD via permacath. Was sent to rehab and readmitted for evaluation of fevers/chills and altered mental status. Permacath was suspected to be the source and it was removed this admission. he was also started on vancomycin. Called to evaluate anemia. Also, he was noted to have blood on the toilet paper after a bowel movement last night. He has been having loose bowel movements. There has been no melena. Stool for occult blood today was negative. He has had a rise in monocytes and eosinophils on his differential. There is no family history of colorectal cancer or other GI malignancy. He has never had an upper endoscopy or colonoscopy. He has a right internal jugular thrombus and is being maintained on Lovenox. This has been held. - History Source History Provided By: Patient, Medical Record - Past Medical History Gastrointestinal: No: Constipation, GI Bleed Renal/: Yes: Renal Failure (ARF during Legionairre's with sequela of rhabdomyolysis) - Past Surgical History Additional Surgical History: Permacath placement - Alcohol/Substance Use Hx Alcohol Use: No - Smoking History Smoking history: Former smoker Have you smoked in the past 12 months: Yes Aproximately how many cigarettes per day: 5 - Social History Usual Living Arrangement: Alone ADL: Independent Occupation: [employer] Place of : [facility] History of Recent Travel: No Home Medications - Allergies Allergies/Adverse Reactions: Allergies Allergy/AdvReac Type Severity Reaction Status Date / Time No Known Allergies Allergy Verified 12/06/17 10:00 - Home Medications Home Medications: Ambulatory Orders Ergocalciferol (Vitamin D2) [Drisdol] 50,000 unit PO WEEKLY 12/04/17 Hydrocortisone 2.5% Topical Cr [Anusol 2.5% Hc Cream -] 1 applic RC BID Torsemide [Demadex] 80 mg PO DAILY 12/04/17 Family Disease History - Family Disease History Family Disease History: Other: Father (Alive: healthy), Mother (Alive: healthy) , Sister (1, alive: ovarian cancer), Daughter (1, healthy) Other Family History: No family history of colorectal cancer or other GI malignancy Review of Systems - Review of Systems Constitutional: denies: Unintentional Wgt. Loss Cardiovascular: denies: Chest Pain Respiratory: denies: SOB Gastrointestinal: reports: Diarrhea. denies: Abdominal Pain, Constipation, Melena, Nausea, Rectal Bleeding, Vomiting Physical Exam-GI Vital Signs: Vital Signs Temperature 98.0 F 12/07/17 14:59 Pulse Rate 96 H 12/07/17 10:00 Respiratory Rate 85 H 12/07/17 14:59 Blood Pressure 128/78 12/07/17 14:59 O2 Sat by Pulse Oximetry (%) 100 12/07/17 09:00 Constitutional: Yes: Calm Eyes: No: Sclera Icterus Cardiovascular: Yes: Regular Rate and Rhythm, Murmur (2/6 systolic murmur at the RSB) Respiratory: Yes: CTA Bilaterally Gastrointestinal Inspection: No: Distention, Scars ...Auscultate: Yes: Normoactive Bowel Sounds ...Palpate: No: Hepatomegaly, Splenomegaly, Tenderness ...Percussion: No: Tympanitic ...Rectal Exam: Yes: Other (No external lesions, no masses, trace light brown stool in rectal vault, guaiac negative) Edema: No (No LE edema) Neurological: Yes: Alert, Oriented Labs: CBC, BMP 12/07/17 12:35 12/07/17 06:30 INR, PTT INR 1.42 (0.83-1.09) H 12/04/17 16:35 Hepatic Panel Total Bilirubin 0.6 mg/dL (0.2-1.0) 12/06/17 07:00 AST 27 U/L (15-37) 12/06/17 07:00 ALT 54 U/L (12-78) 12/06/17 07:00 Alkaline Phosphatase 99 U/L (45-117) D 12/06/17 07:00 Albumin 2.5 g/dl (3.4-5.0) L 12/06/17 07:00 Problem List - Problems (1) Normocytic anemia Assessment/Plan: Normocytic anemia, likely multifactorial (myelosuppression fromn bacteremia, recent renal failure). the description of the scant blood noted on the toilet paper sounds to be related to internal hemorrhoidal irritation from diarrhea. Guaaic negative on exam. the description of the bleeding does not reflect the amount of anemia noted. Would resume anticoagulation if it is felt to be medically necessary. Consider hematology evaluation If continued rectal bleeding, worsening anemia, could consider endoscopic evaluation. Discussed risks of the procedure like bu not limited to bleeding, perforation requiring surgery to repair, infection, sedation medication effects. he has agreed to the procedures if it was felt to be medically necessary. Code(s): D64.9 - ANEMIA, UNSPECIFIED
[2017-12-07 17:11] LABS: BASO % 0.6 % (0-2.0); EOS % 4.2 % (0-4.5); HEMATOCRIT 26.8 % (35.4-49); HEMOGLOBIN 9.1 GM/dL (11.7-16.9); LYMPH % 26.6 % (8-40); MCH 29.2 pg (25.7-33.7); MEAN PLT VOLUME 6.4 fl (7.5-11.1); MONO % 14.2 % (3.8-10.2); NEUT % 54.4 % (42.8-82.8); PLATELET COUNT 230 K/MM3 (134-434); RBC 3.12 M/mm3 (4.00-5.60); RDW 12.8 % (11.9-15.9); WHITE BLOOD COUNT 5.1 K/mm3 (4.0-10.0)
--- NOTE | 2017-12-07 18:23 | PN ---
Progress Note (short form) - Note Progress Note: no fevers today anemia- gi eval in progress Vital Signs Period Temp Pulse Resp BP Sys/Dangelo Pulse Ox Last 24 Hr 97.8 F-98.5 F 90-102 16-85 118-138/54-78 100-100 cor-rrr lungs decreased bs at bases abd soft,nt ext no edema ultrasound + right IJ thrombus Microbiology 12/06/17 07:00 Blood - Peripheral Venous Blood Culture - Preliminary Pending Organism 12/04/17 16:35 Blood - Peripheral Venous Blood Culture - Final S Aureus 12/04/17 20:01 Catheter Site Gram Stain - Final 12/04/17 20:01 Catheter Site Wound Culture - Preliminary Non Lactose Fermenting Gnb Pending Organism Pending Organism#2 12/04/17 17:30 Urine - Urine Clean Catch Urine Culture - Final S Aureus 12/04/17 16:35 Blood - Peripheral Venous Blood Culture - Final S Aureus 12/06/17 07:00 Blood - Peripheral Venous Blood Culture - Preliminary NO GROWTH OBTAINED AFTER 24 HOURS, INCUBATION TO CONTINUE FOR 4 DAYS. 12/06/17 07:00 Serum Legionella Serology - Preliminary a/p catheter related bacteremia-MRSA -permacath has been removed continue vancomycin-dose adjusted for elevated trough -vanco rakan is one repeat blood culture today transthoracic echo no vegetations will need may if he remains bacteremic Right IJ thrombus- anticoagulation on hold due to anemia history recent ARF/rhabdomyolysis requiring HD history of legionella- will repeat serology (convalascent) was here 11/01 to 11/15 d/w hospitalist Problem List - Problems (1) Sepsis Code(s): A41.9 - SEPSIS, UNSPECIFIED ORGANISM Qualifiers: Sepsis type: sepsis due to unspecified organism Qualified Code(s): A41.9 - Sepsis, unspecified organism (2) Bacteremia associated with intravascular line Code(s): T82.7XXA - INFECT/INFLM REACT D/T OTH CARDI/VASC DEV/IMPLNT/GRFT, INIT ; R78.81 - BACTEREMIA
[2017-12-08] MEDS: SODIUM CHLORIDE 1,000 ML IV SCH (04:10)
[2017-12-08 07:01] LABS: BASO % 0.6 % (0-2.0); EOS % 3.9 % (0-4.5); HEMATOCRIT 23.9 % (35.4-49); HEMOGLOBIN 8.2 GM/dL (11.7-16.9); LYMPH % 23.3 % (8-40); MCH 29.4 pg (25.7-33.7); MCHC 34.1 g/dl (32.0-35.9); MEAN CELL VOLUME 86.2 fl (80-96); MONO % 12.7 % (3.8-10.2); NEUT % 59.5 % (42.8-82.8); PLATELET COUNT 199 K/MM3 (134-434); RBC 2.77 M/mm3 (4.00-5.60); RDW 12.5 % (11.9-15.9); WHITE BLOOD COUNT 5.6 K/mm3 (4.0-10.0)
[2017-12-08 07:56] LABS: ANION GAP 11 MMOL/L (8-16); BLOOD UREA NITROGEN 4 mg/dL (7-18); CALCIUM 8.3 mg/dL (8.5-10.1); CHLORIDE 112 mmol/L (98-107); CO2 22 mmol/L (21-32); CREATININE 1.3 mg/dL (0.7-1.3); GLUCOSE,RANDOM 91 mg/dL (74-106); LDH 177 U/L (87-241); MAGNESIUM 1.7 mg/dL (1.8-2.4); PHOSPHOROUS 3.7 mg/dL (2.5-4.9); POTASSIUM 3.3 mmol/L (3.5-5.1); SODIUM 145 mmol/L (136-145)
[2017-12-08 08:04] LABS: BILIRUBIN,DIRECT 0.2 mg/dL (0.0-0.2); BILIRUBIN,TOTAL 0.4 mg/dL (0.2-1.0)
[2017-12-08] MEDS ORDERED: POTASSIUM CHLORIDE TABS 20 MEQ TABLET.ER (FP) PO ONE (08:45)
[2017-12-08] MEDS ORDERED: MAGNESIUM SULF 50% (8.12 MEQ/2 ML-1 GM VIAL) IVPB ONE (08:45)
[2017-12-08] MEDS: POTASSIUM CHLORIDE TABS 10 MEQ TABLET.ER (FP) PO SCH ×2 (09:16→21:55)
[2017-12-08] MEDS: VANCOMYCIN 1 GM PREMIX - 1 GM/200 ML BAG IVPB SCH (10:13)
[2017-12-08] MEDS ORDERED: VANCOMYCIN 1,000 MG in DEXTROSE 5%-WATER - 250 ML IVPB SCH (12:00)
--- NOTE | 2017-12-08 12:14 | PN ---
Progress Note (short form) - Note Progress Note: Renal follow up for SALBADOR Pt seen and examined at the bedside no acute complaints no sob, cp, fever, chills making urine Vital Signs Temperature 99.2 F 12/08/17 07:15 Pulse Rate 93 H 12/08/17 07:15 Respiratory Rate 18 12/08/17 07:15 Blood Pressure 123/63 12/08/17 07:15 O2 Sat by Pulse Oximetry (%) 100 12/07/17 21:00 Intake & Output 12/05/17 12/06/17 12/07/17 12/08/17 23:59 23:59 23:59 23:59 Intake Total 4800 1740 2575 750 Output Total 800 4926 995 6022 Balance 4000 640 2175 -250 Weight 87.815 kg 86.273 kg 86.727 kg NAD RRR, No M/R CTA, no rales or wheeze soft NT/ND No LE edema CBC, BMP 12/08/17 06:30 12/08/17 06:30 Current Medications Acetaminophen (Tylenol -) 650 mg PO Q6H PRN PRN Reason: FEVER Sodium Chloride (Normal Saline -) 1,000 mls @ 75 mls/hr IV ASDIR ODILIA Last Admin: 12/08/17 04:10 Dose: 75 mls/hr Vancomycin HCl 1,000 mg/ (Dextrose) 250 mls @ 166.667 mls/hr IVPB Q12H ODILIA; Protocol Potassium Chloride (K-Dur -) 10 meq PO BID ODILIA Last Admin: 12/08/17 09:16 Dose: 10 meq 32 year old AA gentleman with Hx of Salbador requring dialysis from Rhabdomyolysis + Legionella now with catheter related bacteremia. #Acute Renal failure now improved #MRSA bacteremia #Iatrogenic subclavian vein thrombosis Renal function stable can d/c IVF as pt appears evolemic at the present time Trend H/H, no acute indication for transfusion GI consult noted A/C as per primary Abx as per ID, trend zoeyo jamar Edmondson DO
--- NOTE | 2017-12-08 13:22 | PN ---
Physical Exam: SUBJECTIVE: Patient seen and examined at bedside. Diarrhea continuing, no further BRBPR. Otherwise feels comfortable. OBJECTIVE: Vital Signs Period Temp Pulse Resp BP Sys/Dangelo Pulse Ox Last 24 Hr 98.0 F-99.2 F 90-102 18-85 118-130/54-78 100 GENERAL: A&O x 3, NAD HEAD: NC/AT EYES: PERRLA, EOMI EARS, NOSE, THROAT: Moist mucous membranes. NECK: R neck w/ thickened vessel, reduced tenderness. LUNGS: Breath sounds equal, clear to auscultation bilaterally. No wheezes, and no crackles. No accessory muscle use. HEART: Tachycardic, no m/r/g ABDOMEN: Soft, nontender, not distended, normoactive bowel sounds, no guarding, no rebound, no masses. No hepatomegaly or splenomegaly. EXTREMITIES: No stigmata of endocarditis. 2+ pulses, warm, well-perfused. No cyanosis. No clubbing. No calf tenderness. No peripheral edema. NEUROLOGICAL: Dysarthria vs. speech impediment, otherwise no focal deficits. Gait not observed. PSYCHIATRIC: Cooperative. Good eye contact. Appropriate mood and affect. SKIN: Warm, dry, normal turgor, no rashes or lesions noted, normal capillary refill. Laboratory Results - last 24 hr 12/07/17 12/07/17 12/07/17 12:35 12:35 14:46 WBC 4.0 RBC 2.59 L Hgb 7.5 L Hct 22.7 L MCV 87.7 MCH 28.8 MCHC 32.8 RDW 12.7 Plt Count 194 MPV 6.3 L Absolute Neuts (auto) 1.7 Neutrophils % 42.6 L Lymphocytes % 35.2 Monocytes % 16.2 H Eosinophils % 5.4 H Basophils % 0.6 Nucleated RBC % 0 Retic Count Sodium Potassium Chloride Carbon Dioxide Anion Gap BUN Creatinine Creat Clearance w eGFR Random Glucose Calcium Phosphorus Magnesium Ferritin Total Bilirubin Direct Bilirubin LD Total C-Reactive Protein Stool Occult Blood Vancomycin Pre-Dose Blood Type O POSITIVE O POSITIVE Antibody Screen Negative Direct Antiglob Test Crossmatch See Detail 12/07/17 12/07/17 12/07/17 15:00 16:30 16:30 WBC 5.1 RBC 3.12 L Hgb 9.1 L Hct 26.8 L D MCV 86.0 MCH 29.2 MCHC 34.0 RDW 12.8 Plt Count 230 MPV 6.4 L Absolute Neuts (auto) 2.8 Neutrophils % 54.4 D Lymphocytes % 26.6 D Monocytes % 14.2 H Eosinophils % 4.2 Basophils % 0.6 Nucleated RBC % 0 Retic Count Sodium Potassium Chloride Carbon Dioxide Anion Gap BUN Creatinine Creat Clearance w eGFR Random Glucose Calcium Phosphorus Magnesium Ferritin Total Bilirubin Direct Bilirubin LD Total C-Reactive Protein Stool Occult Blood Negative Vancomycin Pre-Dose Blood Type Antibody Screen Direct Antiglob Test Negative Crossmatch 12/07/17 12/07/17 12/08/17 16:30 16:30 06:30 WBC 5.6 RBC 2.77 L Hgb 8.2 L Hct 23.9 L MCV 86.2 MCH 29.4 MCHC 34.1 RDW 12.5 Plt Count 199 MPV 6.0 L Absolute Neuts (auto) 3.4 Neutrophils % 59.5 Lymphocytes % 23.3 Monocytes % 12.7 H Eosinophils % 3.9 Basophils % 0.6 Nucleated RBC % 0 Retic Count 2.44 H D Sodium Potassium Chloride Carbon Dioxide Anion Gap BUN Creatinine Creat Clearance w eGFR Random Glucose Calcium Phosphorus Magnesium Ferritin 533.5 H Total Bilirubin Direct Bilirubin LD Total C-Reactive Protein Stool Occult Blood Vancomycin Pre-Dose Blood Type Antibody Screen Direct Antiglob Test Crossmatch 12/08/17 12/08/17 12/08/17 06:30 06:30 06:30 WBC RBC Hgb Hct MCV MCH MCHC RDW Plt Count MPV Absolute Neuts (auto) Neutrophils % Lymphocytes % Monocytes % Eosinophils % Basophils % Nucleated RBC % Retic Count Sodium 145 Potassium 3.3 L Chloride 112 H Carbon Dioxide 22 Anion Gap 11 BUN 4 L Creatinine 1.3 Creat Clearance w eGFR > 60 Random Glucose 91 Calcium 8.3 L Phosphorus 3.7 Magnesium 1.7 L Ferritin Total Bilirubin 0.4 Direct Bilirubin 0.2 D LD Total 177 D C-Reactive Protein 4.0 H Cancelled Stool Occult Blood Vancomycin Pre-Dose Blood Type Antibody Screen Direct Antiglob Test Crossmatch 12/08/17 09:05 WBC RBC Hgb Hct MCV MCH MCHC RDW Plt Count MPV Absolute Neuts (auto) Neutrophils % Lymphocytes % Monocytes % Eosinophils % Basophils % Nucleated RBC % Retic Count Sodium Potassium Chloride Carbon Dioxide Anion Gap BUN Creatinine Creat Clearance w eGFR Random Glucose Calcium Phosphorus Magnesium Ferritin Total Bilirubin Direct Bilirubin LD Total C-Reactive Protein Stool Occult Blood Vancomycin Pre-Dose 19.06 H* D Blood Type Antibody Screen Direct Antiglob Test Crossmatch Active Medications Generic Name Dose Route Start Last Admin Trade Name Tatyana PRN Reason Stop Dose Admin Acetaminophen 650 mg 12/05/17 11:53 Tylenol - PO Q6H PRN FEVER Vancomycin HCl 1,000 mg/ 250 mls @ 166.667 mls/hr 12/08/17 12:00 Dextrose IVPB Q12H ODILIA Protocol Potassium Chloride 10 meq 12/05/17 12:45 12/08/17 09:16 K-Dur - PO 10 meq BID ODILIA Administration ASSESSMENT/PLAN: 32 y/o M w/ PMHx episode 1 month [employer] of sepsis 2/2 legionella PNA, rhabdomyolysis, and ARF, underwent ICU care, had permacath placed, and d/c'd to [facility] for acute rehab. Now presents with fever, nausea and NBNB vomiting, and tenderness at permacath site x 1 day. Admitted for sepsis 2/2 permacath infection. #Sepsis 2/2 permacath infection -ID consulted (Dr. Garcia) -BCx and UCx 12/04 positive for MRSA -repeat BCx 12/06 positive for coag+ staph -re-repeat BCx 12/07 pending -WCx preliminarily positive for E coli, enterococcus, coag+ staph -- may be contaminated -Legionella serology positive -c/w Vancomycin -trough noted, will follow -Vascular consulted (Dr. Vallecillo) #anemia -Pt noted rectal blood -Hgb fell to 7.5 yesterday, rebounded to 9.1. 8.2 this AM, afternoon repeat pending and will transfuse if <7.5 -GI consulted (Dr. Mancera), assessed rectal blood to be d/t internal hemorrhoid and not cause of anemia, will consider endoscopy if rectal bleeding resumes/worsens -FOBT negative and BERNICE OB negative, repeating FOBT -hematology consulted (Dr. Lynne) -retics, iron studies, LDH, Haptoglobin pending -bilirubin wnl #right IJV thrombus -extensive thrombus found on duplex -Lovenox d/c'd d/t fall in Hgb -will repeat duplex in 1 weeks #diarrhea -1-2 episodes/day, tolerable -C Diff pending -monitor lytes #r/o endocarditis -TTE negative -cardiology consulted ([facility]) -will order ANDERS if recommended #h/o ARF, rhabdo -Cr 1.3 -Nephro (Dr. Edmondson) consulted -per nephro, kidney injury is resolved, no need for cath replacement or further dialysis -IVF d/c'd per nephro #metabolic derangement -repleting K, Mg as necessary -following BMP, Mg, Phos #nausea -resolved -QTc 429 -Zofran PRN #FEN -IVF d/c'd -monitor and replete lytes -lactose-free renal diet #PPx -DVT: SCD's #dispo -med/surg Visit type - Emergency Visit Emergency Visit: No - New Patient This patient is new to me today: No - Critical Care Critical Care patient: No
[2017-12-08] MEDS ORDERED: PT OWN MED DRAWER 7, Y5N ONE ×2 (13:28→18:22)
[2017-12-08 14:06] LABS: BASO % 0.4 % (0-2.0); EOS % 2.7 % (0-4.5); HEMATOCRIT 23.7 % (35.4-49); HEMOGLOBIN 8.1 GM/dL (11.7-16.9); LYMPH % 19.9 % (8-40); MCH 29.3 pg (25.7-33.7); MCHC 34.1 g/dl (32.0-35.9); MEAN CELL VOLUME 85.9 fl (80-96); MEAN PLT VOLUME 6.4 fl (7.5-11.1); MONO % 11.4 % (3.8-10.2); NEUT % 65.6 % (42.8-82.8); PLATELET COUNT 230 K/MM3 (134-434); RBC 2.76 M/mm3 (4.00-5.60)
--- NOTE | 2017-12-08 14:49 | PN ---
Progress Note (short form) - Note Progress Note: HGB 8 g/dl. No additional PRBCs were required. No further bleeding. Cont. to monitor. The pt had normal HGB 1 month ago. Recommend EGD and Colonoscopy.
--- NOTE | 2017-12-08 15:06 | PN ---
Teaching Attending Note Name of Resident: Barney Justin ATTENDING PHYSICIAN STATEMENT I saw and evaluated the patient. I reviewed the resident's note and discussed the case with the resident. I agree with the resident's findings and plan as documented. SUBJECTIVE: Patient is feeling better with no acute distress, no shortness of breath. No fever today. No nausea or vomiting. OBJECTIVE: Vital Signs Temperature 98.4 F 12/08/17 14:41 Pulse Rate 80 12/08/17 14:41 Respiratory Rate 16 12/08/17 14:41 Blood Pressure 128/78 12/08/17 14:41 O2 Sat by Pulse Oximetry (%) 100 12/07/17 21:00 CBCD WBC 6.0 K/mm3 (4.0-10.0) 12/08/17 13:20 RBC 2.76 M/mm3 (4.00-5.60) L 12/08/17 13:20 Hgb 8.1 GM/dL (11.7-16.9) L 12/08/17 13:20 Hct 23.7 % (35.4-49) L 12/08/17 13:20 MCV 85.9 fl (80-96) 12/08/17 13:20 MCHC 34.1 g/dl (32.0-35.9) 12/08/17 13:20 RDW 13.0 % (11.9-15.9) 12/08/17 13:20 Plt Count 230 K/MM3 (134-434) 12/08/17 13:20 MPV 6.4 fl (7.5-11.1) L 12/08/17 13:20 CMP Sodium 145 mmol/L (136-145) 12/08/17 06:30 Potassium 3.3 mmol/L (3.5-5.1) L 12/08/17 06:30 Chloride 112 mmol/L (98-107) H 12/08/17 06:30 Carbon Dioxide 22 mmol/L (21-32) 12/08/17 06:30 Anion Gap 11 MMOL/L (8-16) 12/08/17 06:30 BUN 4 mg/dL (7-18) L 12/08/17 06:30 Creatinine 1.3 mg/dL (0.7-1.3) 12/08/17 06:30 Creat Clearance w eGFR > 60 (>60) 12/08/17 06:30 Random Glucose 91 mg/dL (74-106) 12/08/17 06:30 Calcium 8.3 mg/dL (8.5-10.1) L 12/08/17 06:30 Total Bilirubin 0.4 mg/dL (0.2-1.0) 12/08/17 06:30 AST 27 U/L (15-37) 12/06/17 07:00 ALT 54 U/L (12-78) 12/06/17 07:00 Alkaline Phosphatase 99 U/L (45-117) D 12/06/17 07:00 Total Protein 5.7 g/dl (6.4-8.2) L D 12/06/17 07:00 Albumin 2.5 g/dl (3.4-5.0) L 12/06/17 07:00 CARDIAC ENZYMES Creatine Kinase 28 IU/L (39-308) L 12/04/17 18:39 Troponin I < 0.02 ng/ml (0.00-0.05) D 12/04/17 16:40 Current Medications Generic Name Dose Route Start Last Admin Trade Name Freq PRN Reason Stop Dose Admin Acetaminophen 650 mg 12/05/17 11:53 Tylenol - PO Q6H PRN FEVER Vancomycin HCl 1,000 mg/ 250 mls @ 166.667 mls/hr 12/08/17 12:00 12/08/17 13: 33 Dextrose IVPB 166.667 mls/hr Q12H ODILIA Administration Protocol Potassium Chloride 10 meq 12/05/17 12:45 12/08/17 09:16 K-Dur - PO 10 meq BID ODILIA Administration Home Medications Medication Instructions Recorded Ergocalciferol (Vitamin D2) 50,000 unit PO WEEKLY 12/04/17 [Drisdol] Hydrocortisone 2.5% Topical Cr 1 applic RC BID 12/04/17 [Anusol 2.5% Hc Cream -] Torsemide [Demadex] 80 mg PO DAILY 12/04/17 PE: No murmur appreciated rest of PE per resident's note Microbiology 12/06/17 07:00 Blood - Peripheral Venous Blood Culture - Final S Aureus 12/04/17 20:01 Catheter Site Gram Stain - Final 12/04/17 20:01 Catheter Site Wound Culture - Preliminary Escherichia Coli Mr S Aureus Enterococcus Faecalis 12/07/17 16:30 Blood - Peripheral Venous Blood Culture - Preliminary Staphylococcus Latex Coag Pos 12/06/17 07:00 Blood - Peripheral Venous Blood Culture - Preliminary NO GROWTH OBTAINED AFTER 72 HOURS, INCUBATION TO CONTINUE FOR 2 DAYS. 12/07/17 17:00 Blood - Peripheral Venous Blood Culture - Preliminary NO GROWTH OBTAINED AFTER 24 HOURS, INCUBATION TO CONTINUE FOR 4 DAYS. 12/07/17 15:00 Stool Clostridium difficile Antigen (JOSE CARLOS) - Final 12/07/17 15:00 Stool Clostridium difficile Toxin Assay - Final 12/06/17 07:00 Serum Legionella Serology - Final 12/04/17 16:35 Blood - Peripheral Venous Blood Culture - Final S Aureus 12/04/17 17:30 Urine - Urine Clean Catch Urine Culture - Final S Aureus 12/04/17 16:35 Blood - Peripheral Venous Blood Culture - Final Mr Gil Aureus ASSESSMENT AND PLAN: Patient is a 32 y/o man with h/o recent admission to [facility] for sepsis /leginella PNA, SALBADOR, Rhabdo, and demand ischemia who was started on HD and was sent to rehab. he comes back with fever and Right sided neck pain. Patient does not need HD since improved his Kidney function. # Sepsis due to MRSA bacteremia form infected HD catheter: s/p removal of cath on Vancomycin, ID on the case. discussed with ID. # MRSA Bacteremia on Vancomycin, echo is negative for vegetations, will need ANDERS , discussed with Cardio for Wednesday # Acute blood loss with Anemia ,patient is evaluated by GI , will go for EGD/ Colonoscopy on Wednesday # R internal Jugular vein thrombosis. s/p cath removal. s/p Lovenox , needs further evaluation before restarting AC - s/p rectal bleed on lovenox with drop in his HB. Lovenox was dsicontinued and monitor - repeat US in 1 week to see progression /resolution of clot # h/o recent SALBADOR due to rabdo: renal function recovered and does not need HD again # s/p Rectal bleed. rectal exam with internal hemorrhoids. suspect hemorrhoidal bleed . hold AC, Monitor H/H , GI consult appreciated. # Recent legionella PNA and sepsis. follow Legionella Abs for confirmation PT eval.
--- NOTE | 2017-12-08 17:20 | PN ---
Progress Note (short form) - Note Progress Note: no complaints no gi bleeding today Vital Signs Period Temp Pulse Resp BP Sys/Dangelo Pulse Ox Last 24 Hr 98.3 F-100.8 F 80-102 16-21 118-130/54-78 100-100 cor-rrr lungs clear abd soft,nt ext no edema CBC, BMP 12/08/17 13:20 12/08/17 06:30 Microbiology 12/07/17 17:00 Blood - Peripheral Venous Blood Culture - Preliminary NO GROWTH OBTAINED AFTER 24 HOURS, INCUBATION TO CONTINUE FOR 4 DAYS. 12/07/17 15:00 Stool Clostridium difficile Antigen (JOSE CARLOS) - Final 12/07/17 15:00 Stool Clostridium difficile Toxin Assay - Final 12/07/17 16:30 Blood - Peripheral Venous Blood Culture - Preliminary Pending Organism 12/06/17 07:00 Serum Legionella Serology - Final 12/04/17 20:01 Catheter Site Gram Stain - Final 12/04/17 20:01 Catheter Site Wound Culture - Preliminary Escherichia Coli Staphylococcus Latex Coag Pos Group D Strep Or Entero Coccus 12/06/17 07:00 Blood - Peripheral Venous Blood Culture - Preliminary Staphylococcus Latex Coag Pos 12/06/17 07:00 Blood - Peripheral Venous Blood Culture - Preliminary NO GROWTH OBTAINED AFTER 48 HOURS, INCUBATION TO CONTINUE FOR 3 DAYS. 12/04/17 16:35 Blood - Peripheral Venous Blood Culture - Final S Aureus 12/04/17 17:30 Urine - Urine Clean Catch Urine Culture - Final S Aureus 12/04/17 16:35 Blood - Peripheral Venous Blood Culture - Final S Aureus ultrasound + right IJ thrombus Microbiology 12/06/17 07:00 Blood - Peripheral Venous Blood Culture - Preliminary Pending Organism 12/04/17 16:35 Blood - Peripheral Venous Blood Culture - Final S Aureus 12/04/17 20:01 Catheter Site Gram Stain - Final 12/04/17 20:01 Catheter Site Wound Culture - Preliminary Non Lactose Fermenting Gnb Pending Organism Pending Organism#2 12/04/17 17:30 Urine - Urine Clean Catch Urine Culture - Final S Aureus 12/04/17 16:35 Blood - Peripheral Venous Blood Culture - Final S Aureus 12/06/17 07:00 Blood - Peripheral Venous Blood Culture - Preliminary NO GROWTH OBTAINED AFTER 24 HOURS, INCUBATION TO CONTINUE FOR 4 DAYS. 12/06/17 07:00 Serum Legionella Serology - Preliminary a/p catheter related bacteremia-MRSA -permacath has been removed persistent bacteremia- ?secondary to thrombus, ?endocarditis switch to daptomycin and ceftaroline ANDERS- d/w cardiology reculture in am transthoracic echo no vegetations Right IJ thrombus- a/c on hold due to gi bleed/anemia history recent ARF/rhabdomyolysis requiring HD history of legionella- convalescent serology positive was here 11/01 to 11/15 d/w hospitalist Problem List - Problems (1) Sepsis Code(s): A41.9 - SEPSIS, UNSPECIFIED ORGANISM Qualifiers: Sepsis type: sepsis due to unspecified organism Qualified Code(s): A41.9 - Sepsis, unspecified organism (2) Bacteremia associated with intravascular line Code(s): T82.7XXA - INFECT/INFLM REACT D/T OTH CARDI/VASC DEV/IMPLNT/GRFT, INIT ; R78.81 - BACTEREMIA
--- NOTE | 2017-12-08 17:34 | CONSULT ---
Consult Consult Specialty:: hematology Referred by:: hospitalist Reason for Consultation:: anemia - History Source History Provided By: Patient, Medical Record Limitations to Obtaining History: No Limitations - Past Medical History Pulmonary: Yes: Other (legionellea) Gastrointestinal: No: Constipation, GI Bleed Renal/: Yes: Renal Failure (ARF during Legionairre's with sequela of rhabdomyolysis) Heme/Onc: Yes: Anemia - Past Surgical History Additional Surgical History: Permacath placement - Alcohol/Substance Use Hx Alcohol Use: No History of Substance Use: reports: Marijuana - Smoking History Smoking history: Former smoker Have you smoked in the past 12 months: Yes Aproximately how many cigarettes per day: 5 - Social History Usual Living Arrangement: Alone ADL: Independent Occupation: [employer] History of Recent Travel: No Home Medications - Allergies Allergies/Adverse Reactions: Allergies Allergy/AdvReac Type Severity Reaction Status Date / Time No Known Allergies Allergy Verified 12/06/17 10:00 - Home Medications Home Medications: Ambulatory Orders Ergocalciferol (Vitamin D2) [Drisdol] 50,000 unit PO WEEKLY 12/04/17 Hydrocortisone 2.5% Topical Cr [Anusol 2.5% Hc Cream -] 1 applic RC BID Torsemide [Demadex] 80 mg PO DAILY 12/04/17 Family Disease History - Family Disease History Family Disease History: Other: Father (Alive: healthy), Mother (Alive: healthy) , Sister (1, alive: ovarian cancer), Daughter (1, healthy) Other Family History: No family history of colorectal cancer or other GI malignancy Review of Systems - Review of Systems Constitutional: reports: Fever, Malaise, Weakness Eyes: denies: Blurred Vision, Double Vision HENT: denies: Difficult Swallowing, Epistaxis Neck: denies: Stiffness, Swollen Glands Cardiovascular: denies: Chest Pain, Shortness of Breath Respiratory: denies: Hemoptysis, SOB on Exertion Gastrointestinal: denies: Constipation, Diarrhea, Melena, Nausea, Rectal Bleeding, Vomiting Genitourinary: denies: Dysuria, Flank Pain, Frequency, Hematuria Musculoskeletal: denies: Back Pain, Muscle Pain Integumentary: denies: Bruising, Erythema Neurological: reports: No Symptoms Endocrine: reports: No Symptoms Hematology/Lymphatic: denies: Excessive Bleeding Psychiatric: reports: No Symptoms Physical Exam Vital Signs: Vital Signs Temperature 100.8 F H 12/08/17 16:15 Pulse Rate 94 H 12/08/17 16:15 Respiratory Rate 20 12/08/17 16:15 Blood Pressure 122/61 12/08/17 16:15 O2 Sat by Pulse Oximetry (%) 100 12/08/17 09:00 Constitutional: Yes: Anxious, Mild Distress Eyes: Yes: PERRL. No: Ptosis, Sclera Icterus HENT: No: Pharyngeal Erythema Neck: Yes: Supple. No: Lymphadenopathy Cardiovascular: Yes: Regular Rate and Rhythm, Murmur, Other (systolic murmur) Respiratory: Yes: CTA Bilaterally Gastrointestinal: Yes: Normal Bowel Sounds, Soft. No: Ascites, Distention, Hepatomegaly, Hypoactive Bowel Sounds, Tenderness Renal/: No: Anuria, CVA Tenderness - Left Breast(s): No: Gynecomastia Musculoskeletal: No: Muscle Pain Extremities: No: Calf Tenderness ...Motor Strength: WNL Psychiatric: Yes: WNL Labs: CBC, BMP 12/08/17 13:20 12/08/17 06:30 Problem List - Problems (1) Bacteremia associated with intravascular line Assessment/Plan: Patient with MRSA bacteremia- likely catheter related. Catheter now removed Followed by ID Code(s): T82.7XXA - INFECT/INFLM REACT D/T OTH CARDI/VASC DEV/IMPLNT/GRFT, INIT ; R78.81 - BACTEREMIA (2) Normocytic anemia Assessment/Plan: PATIENT WITH RECENT LENGTHY HOSPITILIZATION FOR LEGIONELLAS WITH SALBADOR REQUIRING DIALYSIS. LEFT HOSPITAL ON 11/15 WITH HB-9.3 AND HCT OF 26.5% RETURNED 12/04 WITH HCT 33% AND HB-11.6; ON 12/05 HB-9.1 AND HCT 27.6% SUSPECT THIS WAS A DILUTIONAL EFFECT. OVER LAST SEVERAL DAYS, MILD DECREASE TO HB-8 GM WITH HCT 23% SUSPECT NC/NC ANEMIA MULTIFACTORIAL WITH CHRONIC DISEASE, BACTEREMIA, BLOOD LETTING +/_ COMPONENT OF BLOOD LOSS . WOULD CHECK STOOL GUAICS AND IF NEGATIVE AND IF HB STABLE WOULD BE OK WITH RESUMPTION OF A/C FOR IJ THROMBOSIS. . IN INTERIM, ID WORKING UP PERSISTENT BACTEREMIA. GI IS RECOMMENDING W/U SO WOULD RESUME A/C AFTER GI ASSESSMENT. Code(s): D64.9 - ANEMIA, UNSPECIFIED (3) Acute kidney failure Code(s): N17.9 - ACUTE KIDNEY FAILURE, UNSPECIFIED Qualifiers: Acute renal failure type: unspecified Qualified Code(s): N17.9 - Acute kidney failure, unspecified (4) Sepsis Code(s): A41.9 - SEPSIS, UNSPECIFIED ORGANISM Qualifiers: Sepsis type: sepsis due to unspecified organism Qualified Code(s): A41.9 - Sepsis, unspecified organism
[2017-12-08] MEDS: CEFTAROLINE FOSAMIL ACETATE 600 MG in DEXTROSE 5%-WATER - 100 ML IVPB SCH (18:52)
[2017-12-08] MEDS: DAPTOMYCIN 650 MG in SODIUM CHLORIDE 50 ML IVPB SCH (20:44)
[2017-12-09] MEDS ORDERED: PT OWN MED DRAWER 7, Y5N ONE ×4 (03:25→21:18)
[2017-12-09] MEDS: CEFTAROLINE FOSAMIL ACETATE 600 MG in DEXTROSE 5%-WATER - 100 ML IVPB SCH ×3 (03:33→18:02)
[2017-12-09 06:06] LABS: SERUM IRON SATURATION 24 % (15-55); TOTAL IRON BINDING CAPACITY 185 ug/dL (250-450); UIBC 140 ug/dL (111-343)
[2017-12-09 07:56] LABS: BASO % 0.5 % (0-2.0); EOS % 2.8 % (0-4.5); HEMATOCRIT 23.7 % (35.4-49); LYMPH % 22.8 % (8-40); MCH 29.1 pg (25.7-33.7); MCHC 33.6 g/dl (32.0-35.9); MEAN CELL VOLUME 86.6 fl (80-96); MEAN PLT VOLUME 6.2 fl (7.5-11.1); MONO % 10.1 % (3.8-10.2); NEUT % 63.8 % (42.8-82.8); PLATELET COUNT 228 K/MM3 (134-434); RBC 2.74 M/mm3 (4.00-5.60); RDW 12.9 % (11.9-15.9); WHITE BLOOD COUNT 7.3 K/mm3 (4.0-10.0)
[2017-12-09 09:31] LABS: ANION GAP 8 MMOL/L (8-16); BLOOD UREA NITROGEN 3 mg/dL (7-18); CALCIUM 8.3 mg/dL (8.5-10.1); CHLORIDE 113 mmol/L (98-107); CO2 23 mmol/L (21-32); GLUCOSE,RANDOM 89 mg/dL (74-106); POTASSIUM 3.3 mmol/L (3.5-5.1); SODIUM 144 mmol/L (136-145)
[2017-12-09 09:33] LABS: CREATININE 1.5 mg/dL (0.7-1.3); LDH 183 U/L (87-241); MAGNESIUM 1.8 mg/dL (1.8-2.4)
[2017-12-09] MEDS: POTASSIUM CHLORIDE TABS 10 MEQ TABLET.ER (FP) PO SCH ×2 (11:28→21:14)
--- NOTE | 2017-12-09 13:36 | PN ---
Teaching Attending Note Name of Resident: Barney Justin ATTENDING PHYSICIAN STATEMENT I saw and evaluated the patient. I reviewed the resident's note and discussed the case with the resident. I agree with the resident's findings and plan as documented. SUBJECTIVE: Patient is comfortable with no further bleeding episodes. OBJECTIVE: Vital Signs Temperature 98.3 F 12/09/17 06:57 Pulse Rate 88 12/09/17 06:57 Respiratory Rate 18 12/09/17 06:57 Blood Pressure 120/73 12/09/17 06:57 O2 Sat by Pulse Oximetry (%) 100 12/08/17 21:00 CBCD WBC 7.3 K/mm3 (4.0-10.0) 12/09/17 06:20 RBC 2.74 M/mm3 (4.00-5.60) L 12/09/17 06:20 Hgb 8.0 GM/dL (11.7-16.9) L 12/09/17 06:20 Hct 23.7 % (35.4-49) L 12/09/17 06:20 MCV 86.6 fl (80-96) 12/09/17 06:20 MCHC 33.6 g/dl (32.0-35.9) 12/09/17 06:20 RDW 12.9 % (11.9-15.9) 12/09/17 06:20 Plt Count 228 K/MM3 (134-434) 12/09/17 06:20 MPV 6.2 fl (7.5-11.1) L 12/09/17 06:20 CMP Sodium 144 mmol/L (136-145) 12/09/17 06:20 Potassium 3.3 mmol/L (3.5-5.1) L 12/09/17 06:20 Chloride 113 mmol/L (98-107) H 12/09/17 06:20 Carbon Dioxide 23 mmol/L (21-32) 12/09/17 06:20 Anion Gap 8 MMOL/L (8-16) 12/09/17 06:20 BUN 3 mg/dL (7-18) L 12/09/17 06:20 Creatinine 1.5 mg/dL (0.7-1.3) H 12/09/17 06:20 Creat Clearance w eGFR 54.59 (>60) 12/09/17 06:20 Random Glucose 89 mg/dL (74-106) 12/09/17 06:20 Calcium 8.3 mg/dL (8.5-10.1) L 12/09/17 06:20 Total Bilirubin 0.4 mg/dL (0.2-1.0) 12/08/17 06:30 AST 27 U/L (15-37) 12/06/17 07:00 ALT 54 U/L (12-78) 12/06/17 07:00 Alkaline Phosphatase 99 U/L (45-117) D 12/06/17 07:00 Total Protein 5.7 g/dl (6.4-8.2) L D 12/06/17 07:00 Albumin 2.5 g/dl (3.4-5.0) L 12/06/17 07:00 CARDIAC ENZYMES Creatine Kinase 28 IU/L (39-308) L 12/04/17 18:39 Troponin I < 0.02 ng/ml (0.00-0.05) D 12/04/17 16:40 Current Medications Generic Name Dose Route Start Last Admin Trade Name Freq PRN Reason Stop Dose Admin Acetaminophen 650 mg 12/05/17 11:53 Tylenol - PO Q6H PRN FEVER Bisacodyl 20 mg 12/12/17 15:00 Dulcolax - PO 12/12/17 15:01 ONCE ONE Ceftaroline Fosamil 600 mg/ 100 mls @ 100 mls/hr 12/08/17 18:00 12/09/17 11: 28 Dextrose IVPB 100 mls/hr Q8H-IV ODILIA Administration Protocol Daptomycin 650 mg/ Sodium 50 mls @ 50 mls/hr 12/08/17 18:00 12/08/17 20:44 Chloride IVPB 50 mls/hr DAILY@1800 ODILIA Administration Protocol Polyethylene Glycol/Electrolytes 4,000 ml 12/12/17 17:00 Golytely Solution - PO 12/12/17 17:01 ONCE ONE Potassium Chloride 10 meq 12/05/17 12:45 12/09/17 11:28 K-Dur - PO 10 meq BID ODILIA Administration Home Medications Medication Instructions Recorded Ergocalciferol (Vitamin D2) 50,000 unit PO WEEKLY 12/04/17 [Drisdol] Hydrocortisone 2.5% Topical Cr 1 applic RC BID 09/08/18 [Anusol 2.5% Hc Cream -] Torsemide [Demadex] 80 mg PO DAILY 12/04/17 PE: No murmur appreciated rest of PE per resident's note Microbiology 12/06/17 07:00 Blood - Peripheral Venous Blood Culture - Final S Aureus 12/04/17 20:01 Catheter Site Gram Stain - Final 12/04/17 20:01 Catheter Site Wound Culture - Preliminary Escherichia Coli S Aureus Enterococcus Faecalis 12/07/17 16:30 Blood - Peripheral Venous Blood Culture - Preliminary Staphylococcus Latex Coag Pos 12/06/17 07:00 Blood - Peripheral Venous Blood Culture - Preliminary NO GROWTH OBTAINED AFTER 72 HOURS, INCUBATION TO CONTINUE FOR 2 DAYS. 12/07/17 17:00 Blood - Peripheral Venous Blood Culture - Preliminary NO GROWTH OBTAINED AFTER 24 HOURS, INCUBATION TO CONTINUE FOR 4 DAYS. 12/07/17 15:00 Stool Clostridium difficile Antigen (JOSE CARLOS) - Final 12/07/17 15:00 Stool Clostridium difficile Toxin Assay - Final 12/06/17 07:00 Serum Legionella Serology - Final 12/04/17 16:35 Blood - Peripheral Venous Blood Culture - Final S Aureus 12/04/17 17:30 Urine - Urine Clean Catch Urine Culture - Final S Aureus 12/04/17 16:35 Blood - Peripheral Venous Blood Culture - Final S Aureus ASSESSMENT AND PLAN: Patient is a 32 y/o man with h/o recent admission to [facility] for sepsis /leginella PNA, SALBADOR, Rhabdo, and demand ischemia who was started on HD and was sent to rehab. he comes back with fever and Right sided neck pain. Patient does not need HD since improved his Kidney function. # Sepsis due to MRSA bacteremia due to infected HD catheter: s/p removal of the permacath, switch to daptomycin and ceftaroline from Vancomycin, ID on the case. discussed with ID. # MRSA Bacteremia persistant possible due to thrombus/endocarditis switched to daptomycin and ceftarolineon IV from Vancomycin , echo is negative for vegetations, will need ANDERS , discussed with Cardio for Wednesday reculture ordered. # Acute blood loss with Anemia ,patient is evaluated by GI , will go for EGD/ Colonoscopy on Wednesday # R internal Jugular vein thrombosis. a/c on hold due to gi bleed/anemia , monitor h/h, repeat US in 1 week to see progression /resolution of clot # h/o recent SALBADOR due to rabdo: renal function recovered and does not need HD again # s/p Rectal bleed. rectal exam with internal hemorrhoids. suspect hemorrhoidal bleed . hold AC, Monitor H/H , GI consult appreciated. # Recent legionella PNA and sepsis. history of legionella- convalescent serology positive; was here 11/01 to 11/15 discussed with the patient in details. PT rah.
[2017-12-09] MEDS ORDERED: POTASSIUM CHLORIDE TABS 20 MEQ TABLET.ER (FP) PO ONE (15:05)
--- NOTE | 2017-12-09 15:06 | PN ---
Physical Exam: SUBJECTIVE: Patient seen and examined at bedside. Diarrhea continuing, no further BRBPR. Otherwise feels comfortable. OBJECTIVE: Vital Signs Period Temp Pulse Resp BP Sys/Dangelo Pulse Ox Last 24 Hr 98.3 F-100.8 F 88-99 12-20 120-135/58-73 100 GENERAL: A&O x 3, NAD HEAD: NC/AT EYES: PERRLA, EOMI EARS, NOSE, THROAT: Moist mucous membranes. NECK: R neck w/ thickened vessel, non-tender LUNGS: Breath sounds equal, clear to auscultation bilaterally. No wheezes, and no crackles. No accessory muscle use. HEART: Tachycardic, no m/r/g ABDOMEN: Soft, nontender, not distended, normoactive bowel sounds, no guarding, no rebound, no masses. No hepatomegaly or splenomegaly. EXTREMITIES: No stigmata of endocarditis. 2+ pulses, warm, well-perfused. No cyanosis. No clubbing. No calf tenderness. No peripheral edema. NEUROLOGICAL: Dysarthria vs. speech impediment, otherwise no focal deficits. Gait not observed. PSYCHIATRIC: Cooperative. Good eye contact. Appropriate mood and affect. SKIN: Warm, dry, normal turgor, no rashes or lesions noted, normal capillary refill. Laboratory Results - last 24 hr 12/07/17 12/08/17 12/08/17 16:30 06:30 17:00 WBC RBC Hgb Hct MCV MCH MCHC RDW Plt Count MPV Absolute Neuts (auto) Neutrophils % Lymphocytes % Monocytes % Eosinophils % Basophils % Nucleated RBC % Retic Count Haptoglobin 220 H Sodium Potassium Chloride Carbon Dioxide Anion Gap BUN Creatinine Creat Clearance w eGFR Random Glucose Calcium Phosphorus Magnesium Iron 45 TIBC 185 L Iron Saturation 24 LD Total Stool Occult Blood Negative 12/09/17 12/09/17 12/09/17 06:20 06:20 06:20 WBC 7.3 RBC 2.74 L Hgb 8.0 L Hct 23.7 L MCV 86.6 MCH 29.1 MCHC 33.6 RDW 12.9 Plt Count 228 MPV 6.2 L Absolute Neuts (auto) 4.7 Neutrophils % 63.8 Lymphocytes % 22.8 Monocytes % 10.1 Eosinophils % 2.8 Basophils % 0.5 Nucleated RBC % 0 Retic Count 1.57 H D Haptoglobin Sodium 144 Potassium 3.3 L Chloride 113 H Carbon Dioxide 23 Anion Gap 8 BUN 3 L Creatinine 1.5 H Creat Clearance w eGFR 54.59 Random Glucose 89 Calcium 8.3 L Phosphorus 4.0 Magnesium 1.8 Iron TIBC Iron Saturation LD Total 183 Stool Occult Blood Active Medications Generic Name Dose Route Start Last Admin Trade Name Freq PRN Reason Stop Dose Admin Acetaminophen 650 mg 12/05/17 11:53 Tylenol - PO Q6H PRN FEVER Bisacodyl 20 mg 12/12/17 15:00 Dulcolax - PO 12/12/17 15:01 ONCE ONE Ceftaroline Fosamil 600 mg/ 100 mls @ 100 mls/hr 12/08/17 18:00 12/09/17 11: 28 Dextrose IVPB 100 mls/hr Q8H-IV ODILIA Administration Protocol Daptomycin 650 mg/ Sodium 50 mls @ 50 mls/hr 12/08/17 18:00 12/08/17 20:44 Chloride IVPB 50 mls/hr DAILY@1800 ODILIA Administration Protocol Polyethylene Glycol/Electrolytes 4,000 ml 12/12/17 17:00 Golytely Solution - PO 12/12/17 17:01 ONCE ONE Potassium Chloride 10 meq 12/05/17 12:45 12/09/17 11:28 K-Dur - PO 10 meq BID ODILIA Administration ASSESSMENT/PLAN: 32 y/o M w/ PMHx episode 1 month [employer] of sepsis 2/2 legionella PNA, rhabdomyolysis, and ARF, underwent ICU care, had permacath placed, and d/c'd to [facility] for acute rehab. Now presents with fever, nausea and NBNB vomiting, and tenderness at permacath site x 1 day. Admitted for sepsis 2/2 permacath infection. #Sepsis 2/2 permacath infection -ID consulted (Dr. Garcia) -BCx and UCx / positive for MRSA -repeat BCx 12/06 positive for MRSA -re-repeat BCx 12/07 positive coag+ staph -WCx preliminarily positive for E coli, enterococcus, MRSA -- may be contaminated -Legionella serology positive -Vancomycin d/c'd -now on daptomycin and ceftaroline -Vascular consulted (Dr. Vallecillo) #anemia -Pt noted rectal blood -Hgb stable at 8 since yesterday -follow and transfuse if <7.5 -GI consulted, Dr. Mora following, will perform upper and lower endoscopy tomorrow, NPO after midnight -FOBT negative and BERNICE OB negative, repeating FOBT -hematology consulted (Dr. Lynne), recommends restarting AC for RIJV thrombosis if cleared by GI -retics, iron studies, LDH, Haptoglobin pending -bilirubin wnl #right IJV thrombus -extensive thrombus found on duplex -Lovenox d/c'd d/t fall in Hgb -hematology recommends restarting AC for RIJV thrombosis if cleared by GI -will repeat duplex on 12/13 (one week after initial) #diarrhea -1-2 episodes/day, tolerable -C Diff negative -monitor and replete lytes #r/o endocarditis -TTE negative -cardiology consulted ([facility]) -ANDERS wednesday in light of continuing bacteremia #h/o ARF, rhabdo -Cr 1.3 -Nephro (Dr. Edmondson) consulted -per nephro, kidney injury is resolved, no need for cath replacement or further dialysis -IVF d/c'd per nephro #metabolic derangement -repleting K, Mg as necessary -following BMP, Mg, Phos #nausea -resolved -QTc 429 -Zofran PRN #FEN -IVF d/c'd -monitor and replete lytes -lactose-free renal diet, NPO after midnight #PPx -DVT: SCD's #dispo -med/surg Visit type - Emergency Visit Emergency Visit: No - New Patient This patient is new to me today: No - Critical Care Critical Care patient: No
--- NOTE | 2017-12-09 15:34 | PN ---
Progress Note (short form) - Note Progress Note: no complaints no gi bleeding today lowgrade temp noted Vital Signs Period Temp Pulse Resp BP Sys/Dangelo Pulse Ox Last 24 Hr 98.3 F-100.8 F 88-99 12-20 120-135/58-73 100 cor-rrr lungs clear abd soft,nt ext no edema Microbiology 12/04/17 20:01 Catheter Site Gram Stain - Final 12/04/17 20:01 Catheter Site Wound Culture - Final Escherichia Coli S Aureus Enterococcus Faecalis 12/06/17 07:00 Blood - Peripheral Venous Blood Culture - Final S Aureus 12/07/17 16:30 Blood - Peripheral Venous Blood Culture - Preliminary Staphylococcus Latex Coag Pos 12/06/17 07:00 Blood - Peripheral Venous Blood Culture - Preliminary NO GROWTH OBTAINED AFTER 72 HOURS, INCUBATION TO CONTINUE FOR 2 DAYS. 12/07/17 17:00 Blood - Peripheral Venous Blood Culture - Preliminary NO GROWTH OBTAINED AFTER 24 HOURS, INCUBATION TO CONTINUE FOR 4 DAYS. 12/07/17 15:00 Stool Clostridium difficile Antigen (JOSE CARLOS) - Final 12/07/17 15:00 Stool Clostridium difficile Toxin Assay - Final 12/06/17 07:00 Serum Legionella Serology - Final 12/04/17 16:35 Blood - Peripheral Venous Blood Culture - Final S Aureus 12/04/17 17:30 Urine - Urine Clean Catch Urine Culture - Final S Aureus 12/04/17 16:35 Blood - Peripheral Venous Blood Culture - Final S Aureus ultrasound + right IJ thrombus Current Medications Acetaminophen (Tylenol -) 650 mg PO Q6H PRN PRN Reason: FEVER Bisacodyl (Dulcolax -) 20 mg PO ONCE ONE Stop: 12/12/17 15:01 Ceftaroline Fosamil 600 mg/ (Dextrose) 100 mls @ 100 mls/hr IVPB Q8H-IV ODILIA; Protocol Last Admin: 12/09/17 11:28 Dose: 100 mls/hr Daptomycin 650 mg/ Sodium (Chloride) 50 mls @ 50 mls/hr IVPB DAILY@1800 ODILIA; Protocol Last Admin: 12/08/17 20:44 Dose: 50 mls/hr Polyethylene Glycol/Electrolytes (Golytely Solution -) 4,000 ml PO ONCE ONE Stop: 12/12/17 17:01 Potassium Chloride (K-Dur -) 10 meq PO BID ODILIA Last Admin: 12/09/17 11:28 Dose: 10 meq a/p catheter related bacteremia-MRSA -permacath has been removed persistent bacteremia- ?secondary to thrombus, ?endocarditis switch to daptomycin and ceftaroline ANDERS- d/w cardiology reculture ito transthoracic echo no vegetations Right IJ thrombus- a/c on hold due to gi bleed/anemia anemia- for endoscopy history recent ARF/rhabdomyolysis requiring HD history of legionella- convalescent serology positive Problem List - Problems (1) Sepsis Code(s): A41.9 - SEPSIS, UNSPECIFIED ORGANISM Qualifiers: Sepsis type: sepsis due to unspecified organism Qualified Code(s): A41.9 - Sepsis, unspecified organism (2) Bacteremia associated with intravascular line Code(s): T82.7XXA - INFECT/INFLM REACT D/T OTH CARDI/VASC DEV/IMPLNT/GRFT, INIT ; R78.81 - BACTEREMIA
--- NOTE | 2017-12-09 16:35 | PN ---
Progress Note (short form) - Note Progress Note: Renal follow up for SALBADOR Pt seen and examined at the bedside + fever yesterday afternoon no acute complaints no sob, cp, abd pain, N/V/D Vital Signs Temperature 98.2 F 12/09/17 13:35 Pulse Rate 104 H 12/09/17 13:35 Respiratory Rate 18 12/09/17 13:35 Blood Pressure 138/82 12/09/17 13:35 O2 Sat by Pulse Oximetry (%) 100 12/08/17 21:00 Intake & Output 12/06/17 12/07/17 12/08/17 12/09/17 23:59 23:59 23:59 23:59 Intake Total 1740 2575 2020 Output Total 3083 805 2546 550 Balance 640 2175 20 -550 Weight 86.273 kg 86.727 kg NAD RRR, No M/R CTA, no rales or wheeze soft NT/ND No LE edema CBC, BMP 12/09/17 06:20 12/09/17 06:20 Current Medications Acetaminophen (Tylenol -) 650 mg PO Q6H PRN PRN Reason: FEVER Bisacodyl (Dulcolax -) 20 mg PO ONCE ONE Stop: 12/12/17 15:01 Ceftaroline Fosamil 600 mg/ (Dextrose) 100 mls @ 100 mls/hr IVPB Q8H-IV ODILIA; Protocol Last Admin: 12/09/17 11:28 Dose: 100 mls/hr Daptomycin 650 mg/ Sodium (Chloride) 50 mls @ 50 mls/hr IVPB DAILY@1800 ODILIA; Protocol Last Admin: 12/08/17 20:44 Dose: 50 mls/hr Polyethylene Glycol/Electrolytes (Golytely Solution -) 4,000 ml PO ONCE ONE Stop: 12/12/17 17:01 Potassium Chloride (K-Dur -) 10 meq PO BID ODILIA Last Admin: 12/09/17 11:28 Dose: 10 meq 32 year old AA gentleman with Hx of Salbador requring dialysis from Rhabdomyolysis + Legionella now with catheter related bacteremia. #Acute Renal failure now improved #MRSA bacteremia #Iatrogenic subclavian vein thrombosis Renal function stable continue to trend BUN/Cr and electrolytes while inpatient Abx changed by ID given persistent cultures for Colonoscopy for anemia work up ANDERS scheduled for Wednesday Rojas Edmondson DO
--- NOTE | 2017-12-09 18:17 | PN ---
Progress Note, Physician Chief Complaint: Patient appears comfortable. He remains afebrile and denies chest pain, SOB or palpitation. History of Present Illness: 32 year old man with recent history of sepsis 2/2 to legionella pna/ rhabodmyolysis and ARF requiring dialysis via permacath one months ago readmitted 12/04/2017 with fever, nausea, and tenderness at permacath site. Found to have MRSA bacteremia and cath related subclavian vein thrombosis. Echo 12/06/2017: Normal LV size, wall motion and systolic function. Normal RV. Normal LA and RA in size. No significant valvular abnormalities except mild MAC and mild TR. No evidence of vegetation of any valves. ANDERS planned for next week. - Current Medication List Current Medications: Active Medications Acetaminophen (Tylenol -) 650 mg PO Q6H PRN PRN Reason: FEVER Bisacodyl (Dulcolax -) 20 mg PO ONCE ONE Stop: 12/12/17 15:01 Ceftaroline Fosamil 600 mg/ (Dextrose) 100 mls @ 100 mls/hr IVPB Q8H-IV ODILIA; Protocol Last Admin: 12/09/17 18:02 Dose: 100 mls/hr Daptomycin 650 mg/ Sodium (Chloride) 50 mls @ 50 mls/hr IVPB DAILY@1800 ODILIA; Protocol Last Admin: 12/08/17 20:44 Dose: 50 mls/hr Polyethylene Glycol/Electrolytes (Golytely Solution -) 4,000 ml PO ONCE ONE Stop: 12/12/17 17:01 Potassium Chloride (K-Dur -) 10 meq PO BID ODILIA Last Admin: 12/09/17 11:28 Dose: 10 meq - Objective Vital Signs: Vital Signs Temperature 98.4 F 12/09/17 16:30 Pulse Rate 101 H 12/09/17 16:30 Respiratory Rate 20 12/09/17 16:30 Blood Pressure 129/76 12/09/17 16:30 O2 Sat by Pulse Oximetry (%) 100 12/08/17 21:00 General: Well developed. Well nourished. No acute distress. Head: Normocephalic. Atraumatic, Eyes: PERRLA, EOMI. Sclerae anicteric. Conjunctivae clear. Neck: Supple. No JVD. No bruits. Heart: Normal S1, S2: Regularly regular rhythm and mild tachycardia. No murmur. No gallop or rub. Lungs: Symmetrical air entry. Clear to auscultation. No crackle. No wheezing or rhonchi. Abdomen: Soft. Bowel sound positive. Non tender. No masses. Extremities: No edema. No clubbing or cyanosis. PD 2+, equal bilaterally. Neuro: Intact, no focal findings. AAO X3. Labs: CBC, BMP 12/09/17 06:20 12/09/17 06:20 INR, PTT INR 1.42 (0.83-1.09) H 12/04/17 16:35 Assessment/Plan 32 year old man with recent history of sepsis 2/2 to legionella pna/ rhabodmyolysis and ARF requiring dialysis via permacath one months ago readmitted 12/04/2017 with fever, nausea, and tenderness at permacath site. Found to have MRSA bacteremia and cath related subclavian vein thrombosis. Echo 12/06/2017: Normal LV size, wall motion and systolic function. Normal RV. Normal LA and RA in size. No significant valvular abnormalities except mild MAC and mild TR. No evidence of vegetation of any valves. Bacteremia: -Permacath removed. Followed with ID and receiving IV ABx. -ANDERS planned for next week as per ID. -Dr. Mendiola will perform the procedure. No signs of CHF on exam. No significant murmurs.
[2017-12-09] MEDS: DAPTOMYCIN 650 MG in SODIUM CHLORIDE 50 ML IVPB SCH (18:43)
[2017-12-10] MEDS: CEFTAROLINE FOSAMIL ACETATE 600 MG in DEXTROSE 5%-WATER - 100 ML IVPB SCH ×3 (02:04→22:22)
[2017-12-10 08:42] LABS: BASO % 1.1 % (0-2.0); EOS % 5.1 % (0-4.5); HEMATOCRIT 22.9 % (35.4-49); HEMOGLOBIN 7.8 GM/dL (11.7-16.9); LYMPH % 27.6 % (8-40); MCH 29.6 pg (25.7-33.7); MEAN CELL VOLUME 87.1 fl (80-96); MEAN PLT VOLUME 6.7 fl (7.5-11.1); MONO % 9.5 % (3.8-10.2); NEUT % 56.7 % (42.8-82.8); PLATELET COUNT 271 K/MM3 (134-434); RBC 2.63 M/mm3 (4.00-5.60); RDW 13.1 % (11.9-15.9); WHITE BLOOD COUNT 6.3 K/mm3 (4.0-10.0)
--- NOTE | 2017-12-10 09:14 | PN ---
Progress Note (short form) - Note Progress Note: EGD and colonoscopy, including indication, risks, benefits, alternatives, were discussed with the patient yesrday. He verbalized understanding and agreed to the planned endo work up. Diet and prep orders placed.
--- NOTE | 2017-12-10 09:37 | PN ---
Progress Note (short form) - Note Progress Note: no complaints denies GI bleeding Vital Signs Period Temp Pulse Resp BP Sys/Dangelo Pulse Ox Last 24 Hr 98.1 F-98.4 F 76-104 18-20 124-138/62-82 100 cor-rrr lungs clear abd soft,nt ext no edema CBC, BMP 12/10/17 06:30 Microbiology 12/06/17 07:00 Blood - Peripheral Venous Blood Culture - Preliminary NO GROWTH OBTAINED AFTER 96 HOURS, INCUBATION TO CONTINUE FOR 1 DAYS. 12/07/17 17:00 Blood - Peripheral Venous Blood Culture - Preliminary NO GROWTH OBTAINED AFTER 48 HOURS, INCUBATION TO CONTINUE FOR 3 DAYS. 12/04/17 20:01 Catheter Site Gram Stain - Final 12/04/17 20:01 Catheter Site Wound Culture - Final Escherichia Coli S Aureus Enterococcus Faecalis 12/06/17 07:00 Blood - Peripheral Venous Blood Culture - Final S Aureus 12/07/17 16:30 Blood - Peripheral Venous Blood Culture - Preliminary Staphylococcus Latex Coag Pos 12/07/17 15:00 Stool Clostridium difficile Antigen (JOSE CARLOS) - Final 12/07/17 15:00 Stool Clostridium difficile Toxin Assay - Final 12/06/17 07:00 Serum Legionella Serology - Final 12/04/17 16:35 Blood - Peripheral Venous Blood Culture - Final S Aureus 12/04/17 17:30 Urine - Urine Clean Catch Urine Culture - Final S Aureus 12/04/17 16:35 Blood - Peripheral Venous Blood Culture - Final S Aureus ultrasound + right IJ thrombus Current Medications Acetaminophen (Tylenol -) 650 mg PO Q6H PRN PRN Reason: FEVER Bisacodyl (Dulcolax -) 20 mg PO ONCE ONE Stop: 12/12/17 15:01 Ceftaroline Fosamil 600 mg/ (Dextrose) 100 mls @ 100 mls/hr IVPB Q8H-IV ODILIA; Protocol Last Admin: 12/10/17 02:04 Dose: 100 mls/hr Daptomycin 650 mg/ Sodium (Chloride) 50 mls @ 50 mls/hr IVPB DAILY@1800 ODILIA; Protocol Last Admin: 12/09/17 18:43 Dose: 50 mls/hr Potassium Chloride (Potassium Chloride 10 Meq Premix Ivpb -) 10 meq in 100 mls @ 100 mls/hr IVPB Q60M ODILIA Stop: 12/10/17 10:14 Polyethylene Glycol/Electrolytes (Golytely Solution -) 4,000 ml PO ONCE ONE Stop: 12/12/17 17:01 Potassium Chloride (K-Dur -) 10 meq PO BID ODILIA Last Admin: 12/09/17 21:14 Dose: 10 meq a/p catheter related bacteremia-MRSA -permacath has been removed persistent bacteremia- ?secondary to thrombus, ?endocarditis daptomycin and ceftaroline day #3 ANDERS- d/w cardiology-scheduled for Wednesday recultureed yesterday transthoracic echo no vegetations Right IJ thrombus- a/c on hold due to gi bleed/anemia anemia- awaiting endoscopy history recent ARF/rhabdomyolysis requiring HD check cpk in am history of legionella- convalescent serology positive Problem List - Problems (1) Sepsis Code(s): A41.9 - SEPSIS, UNSPECIFIED ORGANISM Qualifiers: Sepsis type: sepsis due to unspecified organism Qualified Code(s): A41.9 - Sepsis, unspecified organism (2) Bacteremia associated with intravascular line Code(s): T82.7XXA - INFECT/INFLM REACT D/T OTH CARDI/VASC DEV/IMPLNT/GRFT, INIT ; R78.81 - BACTEREMIA
[2017-12-10] MEDS ORDERED: PT OWN MED DRAWER 7, Y5N ONE ×3 (09:54→21:19)
[2017-12-10] MEDS: POTASSIUM CHLORIDE TABS 10 MEQ TABLET.ER (FP) PO SCH (09:59)
[2017-12-10 10:21] LABS: ANION GAP 9 MMOL/L (8-16); BLOOD UREA NITROGEN 5 mg/dL (7-18); CALCIUM 8.3 mg/dL (8.5-10.1); CHLORIDE 113 mmol/L (98-107); CO2 23 mmol/L (21-32); CREATININE 1.6 mg/dL (0.55-1.3); GLUCOSE,RANDOM 85 mg/dL (74-106); MAGNESIUM 1.8 mg/dL (1.8-2.4); PHOSPHOROUS 5.1 mg/dL (2.5-4.9); SODIUM 145 mmol/L (136-145)
[2017-12-10] MEDS ORDERED: KCL 10 MEQ IVPB 10 MEQ/100 ML INFUS.BAG IVPB SCH (10:45)
--- NOTE | 2017-12-10 11:54 | PN ---
Physical Exam: SUBJECTIVE: Patient seen and examined at bedside. Diarrhea resolving, no further BRBPR. Otherwise feels comfortable. OBJECTIVE: Vital Signs Period Temp Pulse Resp BP Sys/Dangelo Pulse Ox Last 24 Hr 98.1 F-98.8 F 76-104 18-20 124-140/62-82 100 GENERAL: A&O x 3, NAD HEAD: NC/AT EYES: PERRLA, EOMI EARS, NOSE, THROAT: Moist mucous membranes. NECK: R neck w/ thickened vessel, non-tender LUNGS: Breath sounds equal, clear to auscultation bilaterally. No wheezes, and no crackles. No accessory muscle use. HEART: Tachycardic, no m/r/g ABDOMEN: Soft, nontender, not distended, normoactive bowel sounds, no guarding, no rebound, no masses. No hepatomegaly or splenomegaly. EXTREMITIES: No stigmata of endocarditis. 2+ pulses, warm, well-perfused. No cyanosis. No clubbing. No calf tenderness. No peripheral edema. NEUROLOGICAL: Dysarthria vs. speech impediment, otherwise no focal deficits. Gait not observed. PSYCHIATRIC: Cooperative. Good eye contact. Appropriate mood and affect. SKIN: Warm, dry, normal turgor, no rashes or lesions noted, normal capillary refill. Laboratory Results - last 24 hr 12/09/17 12/09/17 12/10/17 06:20 16:00 06:30 WBC 6.3 RBC 2.63 L Hgb 7.8 L Hct 22.9 L MCV 87.1 MCH 29.6 MCHC 34.0 RDW 13.1 Plt Count 271 MPV 6.7 L Absolute Neuts (auto) 3.6 Neutrophils % 56.7 Lymphocytes % 27.6 D Monocytes % 9.5 Eosinophils % 5.1 H D Basophils % 1.1 Nucleated RBC % 0 Haptoglobin 247 H Sodium Potassium Chloride Carbon Dioxide Anion Gap BUN Creatinine Creat Clearance w eGFR Random Glucose Calcium Phosphorus Magnesium Stool Occult Blood Negative 12/10/17 06:30 WBC RBC Hgb Hct MCV MCH MCHC RDW Plt Count MPV Absolute Neuts (auto) Neutrophils % Lymphocytes % Monocytes % Eosinophils % Basophils % Nucleated RBC % Haptoglobin Sodium 145 Potassium 4.0 Chloride 113 H Carbon Dioxide 23 Anion Gap 9 BUN 5 L Creatinine 1.6 H Creat Clearance w eGFR 50.67 Random Glucose 85 Calcium 8.3 L Phosphorus 5.1 H Magnesium 1.8 Stool Occult Blood Active Medications Generic Name Dose Route Start Last Admin Trade Name Freq PRN Reason Stop Dose Admin Acetaminophen 650 mg 12/05/17 11:53 Tylenol - PO Q6H PRN FEVER Bisacodyl 20 mg 12/12/17 15:00 Dulcolax - PO 12/12/17 15:01 ONCE ONE Ceftaroline Fosamil 600 mg/ 100 mls @ 100 mls/hr 12/08/17 18:00 12/10/17 09: 59 Dextrose IVPB 100 mls/hr Q8H-IV ODILIA Administration Protocol Daptomycin 650 mg/ Sodium 50 mls @ 50 mls/hr 12/08/17 18:00 12/09/17 18:43 Chloride IVPB 50 mls/hr DAILY@1800 ODILIA Administration Protocol Polyethylene Glycol/Electrolytes 4,000 ml 12/12/17 17:00 Golytely Solution - PO 12/12/17 17:01 ONCE ONE ASSESSMENT/PLAN: 32 y/o M w/ PMHx episode 1 month [employer] of sepsis 2/2 legionella PNA, rhabdomyolysis, and ARF, underwent ICU care, had permacath placed, and d/c'd to [facility] for acute rehab. Now presents with fever, nausea and NBNB vomiting, and tenderness at permacath site x 1 day. Admitted for sepsis 2/2 permacath infection. #Sepsis 2/2 permacath infection -ID consulted (Dr. Garcia) -BCx and UCx / positive for MRSA -repeat BCx 12/06 positive for MRSA -re-repeat BCx 12/07 positive MRSA -st-ne-akalzr BCx 12/09 pending -WCx preliminarily positive for E coli, enterococcus, MRSA -- may be contaminated -Legionella serology positive -cont daptomycin and ceftaroline -Vascular consulted (Dr. Vallecillo) #anemia -Pt noted rectal blood -Hgb 7.8 in AM, afternoon repeat 8.6 -follow and transfuse if <7 -GI consulted, Dr. Mora following -for upper and lower endoscopy on Wednesday, bowel prep on Wednesday -FOBT negative and BERNICE OB negative -hematology consulted (Dr. Lynne), recommends restarting AC for RIJV thrombosis if cleared by GI #right IJV thrombus -extensive thrombus found on duplex -Lovenox d/c'd d/t fall in Hgb -hematology recommends restarting AC for RIJV thrombosis if cleared by GI -will repeat duplex on 12/13 (one week after initial) #diarrhea -stools now formed -C Diff negative -monitor and replete lytes #r/o endocarditis -TTE negative -cardiology consulted ([facility]) -ANDERS following clearance by GI in light of continuing bacteremia #h/o ARF, rhabdo -Cr 1.6 (rising slowly since d/c of IVF) -Nephro (Dr. Edmondson) consulted -per nephro, kidney injury is resolved, no need for cath replacement or further dialysis -IVF d/c'd per nephro #metabolic derangement -repleting K, Mg as necessary -following BMP, Mg, Phos #nausea -resolved -QTc 429 -Zofran PRN #FEN -IVF d/c'd -monitor and replete lytes -lactose-free renal diet #PPx -DVT: SCD's #dispo -med/surg Visit type - Emergency Visit Emergency Visit: No - New Patient This patient is new to me today: No - Critical Care Critical Care patient: No
--- NOTE | 2017-12-10 13:12 | PN ---
Progress Note (short form) - Note Progress Note: Renal follow up for SALBADOR Pt seen and examined at the bedside no acute complaints no sob, cp, abd pain, N/V/D Vital Signs Temperature 98.8 F 12/10/17 09:51 Pulse Rate 92 H 12/10/17 09:51 Respiratory Rate 20 12/10/17 09:51 Blood Pressure 140/80 12/10/17 09:51 O2 Sat by Pulse Oximetry (%) 100 12/09/17 21:00 Intake & Output 12/07/17 12/08/17 12/09/17 12/10/17 23:59 23:59 23:59 23:59 Intake Total 2575 2020 700 50 Output Total 400 2000 1150 Balance 2175 20 -450 50 Weight 86.727 kg NAD RRR, No M/R CTA, no rales or wheeze soft NT/ND No LE edema CBC, BMP 12/10/17 06:30 12/10/17 06:30 Current Medications Acetaminophen (Tylenol -) 650 mg PO Q6H PRN PRN Reason: FEVER Bisacodyl (Dulcolax -) 20 mg PO ONCE ONE Stop: 12/12/17 15:01 Ceftaroline Fosamil 600 mg/ (Dextrose) 100 mls @ 100 mls/hr IVPB Q8H-IV ODILIA; Protocol Last Admin: 12/10/17 09:59 Dose: 100 mls/hr Daptomycin 650 mg/ Sodium (Chloride) 50 mls @ 50 mls/hr IVPB DAILY@1800 ODILIA; Protocol Last Admin: 12/09/17 18:43 Dose: 50 mls/hr Polyethylene Glycol/Electrolytes (Golytely Solution -) 4,000 ml PO ONCE ONE Stop: 12/12/17 17:01 32 year old AA gentleman with Hx of Salbador requring dialysis from Rhabdomyolysis + Legionella now with catheter related bacteremia. #Acute Renal failure now improved #MRSA bacteremia #Iatrogenic subclavian vein thrombosis #Aneima/GIB Renal function stable 1/2 bottle from 12/06 were positive repeat cultures drawn on 12/07 Abx as per ID colonoscopy and ANDERS to be done next wee Trend renal function and electrolytes while in patient Rojas Edmondson DO
--- NOTE | 2017-12-10 13:25 | PN ---
Progress Note (short form) - Note Progress Note: Patient seen and examined No specific complaints Last Vital Signs Temp Pulse Resp BP Pulse Ox 98.8 F 92 H 20 140/80 100 12/10/17 09:51 12/10/17 09:51 12/10/17 09:51 12/10/17 09:51 12/09/17 21:00 HEENT: right ptosis Oropharynx: No thrush, No mucositis Cor: RSR, Lungs: Clear to P&A Abd: Soft, Normal bowel sounds, No organomegaly Ext:No significant edema Skin: No rashes, Integument intact CBC, BMP 12/10/17 06:30 12/10/17 06:30 Current Medications Generic Name Dose Route Start Last Admin Trade Name Freq PRN Reason Stop Dose Admin Acetaminophen 650 mg 12/05/17 11:53 Tylenol - PO Q6H PRN FEVER Bisacodyl 20 mg 12/12/17 15:00 Dulcolax - PO 12/12/17 15:01 ONCE ONE Ceftaroline Fosamil 600 mg/ 100 mls @ 100 mls/hr 12/08/17 18:00 12/10/17 09: 59 Dextrose IVPB 100 mls/hr Q8H-IV ODILIA Administration Protocol Daptomycin 650 mg/ Sodium 50 mls @ 50 mls/hr 12/08/17 18:00 12/09/17 18:43 Chloride IVPB 50 mls/hr DAILY@1800 ODILIA Administration Protocol Polyethylene Glycol/Electrolytes 4,000 ml 12/12/17 17:00 Golytely Solution - PO 12/12/17 17:01 ONCE ONE Impression: S/P Legionellas MRSA- bacteremia Right IJ thrombus Urine MRSA Anemia ? etiology --Fe++-45/ TIBC-185/ ferrtin-533 (compatible with chronic disease) Plan: For GI work up For ANDERS Suspect chronic disease anemia Pln : transfuse 1 unit prior to planned colonoscopy -discussed with GI Problem List - Problems (1) Bacteremia associated with intravascular line Code(s): T82.7XXA - INFECT/INFLM REACT D/T OTH CARDI/VASC DEV/IMPLNT/GRFT, INIT ; R78.81 - BACTEREMIA (2) Normocytic anemia Code(s): D64.9 - ANEMIA, UNSPECIFIED (3) Acute kidney failure Code(s): N17.9 - ACUTE KIDNEY FAILURE, UNSPECIFIED Qualifiers: Acute renal failure type: unspecified Qualified Code(s): N17.9 - Acute kidney failure, unspecified (4) Sepsis Code(s): A41.9 - SEPSIS, UNSPECIFIED ORGANISM Qualifiers: Sepsis type: sepsis due to unspecified organism Qualified Code(s): A41.9 - Sepsis, unspecified organism
[2017-12-10 14:12] LABS: HEMATOCRIT 25.1 % (35.4-49); HEMOGLOBIN 8.6 GM/dL (11.7-16.9); MCH 29.9 pg (25.7-33.7); MCHC 34.3 g/dl (32.0-35.9); MEAN CELL VOLUME 87.2 fl (80-96); MEAN PLT VOLUME 6.5 fl (7.5-11.1); PLATELET COUNT 299 K/MM3 (134-434); RBC 2.88 M/mm3 (4.00-5.60); RDW 13.1 % (11.9-15.9)
--- NOTE | 2017-12-10 15:12 | PN ---
Teaching Attending Note Name of Resident: Barney Justin ATTENDING PHYSICIAN STATEMENT I saw and evaluated the patient. I reviewed the resident's note and discussed the case with the resident. I agree with the resident's findings and plan as documented. SUBJECTIVE: pATIENT IS FEELING BETTER with no acute distress.no fever or chills. No shortness of breath. OBJECTIVE: Vital Signs Temperature 98.8 F 12/10/17 09:51 Pulse Rate 92 H 12/10/17 09:51 Respiratory Rate 20 12/10/17 09:51 Blood Pressure 140/80 12/10/17 09:51 O2 Sat by Pulse Oximetry (%) 100 12/09/17 21:00 CBCD WBC 6.0 K/mm3 (4.0-10.0) 12/10/17 13:45 RBC 2.88 M/mm3 (4.00-5.60) L 12/10/17 13:45 Hgb 8.6 GM/dL (11.7-16.9) L 12/10/17 13:45 Hct 25.1 % (35.4-49) L 12/10/17 13:45 MCV 87.2 fl (80-96) 12/10/17 13:45 MCHC 34.3 g/dl (32.0-35.9) 12/10/17 13:45 RDW 13.1 % (11.9-15.9) 12/10/17 13:45 Plt Count 299 K/MM3 (134-434) 12/10/17 13:45 MPV 6.5 fl (7.5-11.1) L 12/10/17 13:45 CMP Sodium 145 mmol/L (136-145) 12/10/17 06:30 Potassium 4.0 mmol/L (3.5-5.1) 12/10/17 06:30 Chloride 113 mmol/L (98-107) H 12/10/17 06:30 Carbon Dioxide 23 mmol/L (21-32) 12/10/17 06:30 Anion Gap 9 MMOL/L (8-16) 12/10/17 06:30 BUN 5 mg/dL (7-18) L 12/10/17 06:30 Creatinine 1.6 mg/dL (0.55-1.3) H 12/10/17 06:30 Creat Clearance w eGFR 50.67 (>60) 12/10/17 06:30 Random Glucose 85 mg/dL (74-106) 12/10/17 06:30 Calcium 8.3 mg/dL (8.5-10.1) L 12/10/17 06:30 Total Bilirubin 0.4 mg/dL (0.2-1.0) 12/08/17 06:30 AST 27 U/L (15-37) 12/06/17 07:00 ALT 54 U/L (12-78) 12/06/17 07:00 Alkaline Phosphatase 99 U/L (45-117) D 12/06/17 07:00 Total Protein 5.7 g/dl (6.4-8.2) L D 12/06/17 07:00 Albumin 2.5 g/dl (3.4-5.0) L 12/06/17 07:00 CARDIAC ENZYMES Creatine Kinase 28 IU/L (39-308) L 12/04/17 18:39 Troponin I < 0.02 ng/ml (0.00-0.05) D 12/04/17 16:40 Current Medications Generic Name Dose Route Start Last Admin Trade Name Freq PRN Reason Stop Dose Admin Acetaminophen 650 mg 12/05/17 11:53 Tylenol - PO Q6H PRN FEVER Bisacodyl 20 mg 12/12/17 15:00 Dulcolax - PO 12/12/17 15:01 ONCE ONE Daptomycin 650 mg/ Sodium 50 mls @ 50 mls/hr 12/08/17 18:00 12/09/17 18:43 Chloride IVPB 50 mls/hr DAILY@1800 REPLACED BY [facility] Administration Protocol Ceftaroline Fosamil 600 mg/ 100 mls @ 100 mls/hr 12/10/17 22:00 Dextrose IVPB Q12H ODILIA Protocol Polyethylene Glycol/Electrolytes 4,000 ml 12/12/17 17:00 Golytely Solution - PO 12/12/17 17:01 ONCE ONE Home Medications Medication Instructions Recorded Ergocalciferol (Vitamin D2) 50,000 unit PO WEEKLY 12/04/17 [Drisdol] Hydrocortisone 2.5% Topical Cr 1 applic RC BID 12/04/17 [Anusol 2.5% Hc Cream -] Torsemide [Demadex] 80 mg PO DAILY 12/04/17 PE: No murmur appreciated rest of PE per resident's note Microbiology 12/07/17 16:30 Blood - Peripheral Venous Blood Culture - Final S Aureus 12/06/17 07:00 Blood - Peripheral Venous Blood Culture - Preliminary NO GROWTH OBTAINED AFTER 96 HOURS, INCUBATION TO CONTINUE FOR 1 DAYS. 12/07/17 17:00 Blood - Peripheral Venous Blood Culture - Preliminary NO GROWTH OBTAINED AFTER 48 HOURS, INCUBATION TO CONTINUE FOR 3 DAYS. 12/04/17 20:01 Catheter Site Gram Stain - Final 12/04/17 20:01 Catheter Site Wound Culture - Final Escherichia Coli S Aureus Enterococcus Faecalis 12/06/17 07:00 Blood - Peripheral Venous Blood Culture - Final S Aureus 12/07/17 15:00 Stool Clostridium difficile Antigen (JOSE CARLOS) - Final 12/07/17 15:00 Stool Clostridium difficile Toxin Assay - Final 12/06/17 07:00 Serum Legionella Serology - Final 12/04/17 16:35 Blood - Peripheral Venous Blood Culture - Final S Aureus 12/04/17 17:30 Urine - Urine Clean Catch Urine Culture - Final S Aureus 12/04/17 16:35 Blood - Peripheral Venous Blood Culture - Final S Aureus ASSESSMENT AND PLAN: Patient is a 32 y/o man with h/o recent admission to [facility] for sepsis /leginella PNA, SALBADOR, Rhabdo, and demand ischemia who was started on HD and was sent to rehab. he comes back with fever and Right sided neck pain. Patient does not need HD since improved his Kidney function. # s/p sepsis due to MRSA bacteremia due to infected HD catheter: s/p removal of the permacath, On IV daptomycin and ceftaroline now, was on Vancomycin, ID on the case. # MRSA Bacteremia persistant possible due to thrombus vs endocarditis. On IV daptomycin and ceftarolineon now , echo is negative for vegetation, will need ANDERS , discussed with Cardio for Possible Wednesday. # R internal Jugular vein thrombosis. will restart Lovenox ac, discussed with Gi , agrees with the plan since patient has extensive Jugular vein thrombos , was on hold due to gi bleed, will continue to monitor h/h, repeat US in 1 week to see progression /resolution of clot # Acute blood loss with Anemia as per Hematology is chronic in nature ,and is suggested to get Blood transfusion one unit prior to EGD/colonoscopy by Hematology .for EGD/Colonoscopy on Wednesday # h/o recent SALBADOR due to rabdo: renal function recovered and does not need HD again # s/p Rectal bleed. rectal exam with internal hemorrhoids. suspect hemorrhoidal bleed . # Recent legionella PNA and sepsis. history of legionella- convalescent serology positive; was here 11/01 to 11/15 ANDERS on post EGD and Colonoscopy EGD/Colonoscopy on Wednesday On Lovenox 80mg sq Bid for RIJ extensive thrombose monitor H/H
[2017-12-10] MEDS: DAPTOMYCIN 650 MG in SODIUM CHLORIDE 50 ML IVPB SCH (17:18)
[2017-12-10] MEDS: ENOXAPARIN NA (PORCINE) 80 MG/0.8 ML DISP.SYRIN SQ SCH (22:22)
[2017-12-11 07:59] LABS: BASO % 1.2 % (0-2.0); EOS % 5.5 % (0-4.5); HEMOGLOBIN 8.5 GM/dL (11.7-16.9); LYMPH % 36.3 % (8-40); MCH 29.6 pg (25.7-33.7); MCHC 33.9 g/dl (32.0-35.9); MEAN CELL VOLUME 87.4 fl (80-96); MEAN PLT VOLUME 6.5 fl (7.5-11.1); MONO % 7.6 % (3.8-10.2); NEUT % 49.4 % (42.8-82.8); PLATELET COUNT 349 K/MM3 (134-434); RBC 2.86 M/mm3 (4.00-5.60); RDW 12.8 % (11.9-15.9); WHITE BLOOD COUNT 5.5 K/mm3 (4.0-10.0)
[2017-12-11 08:32] LABS: ANION GAP 9 MMOL/L (8-16); BLOOD UREA NITROGEN 7 mg/dL (7-18); CALCIUM 8.4 mg/dL (8.5-10.1); CHLORIDE 109 mmol/L (98-107); CO2 24 mmol/L (21-32); CREATININE 1.6 mg/dL (0.55-1.3); GLUCOSE,RANDOM 82 mg/dL (74-106); MAGNESIUM 1.6 mg/dL (1.8-2.4); PHOSPHOROUS 5.4 mg/dL (2.5-4.9); POTASSIUM 3.5 mmol/L (3.5-5.1); SODIUM 142 mmol/L (136-145)
[2017-12-11] MEDS: CEFTAROLINE FOSAMIL ACETATE 600 MG in DEXTROSE 5%-WATER - 100 ML IVPB SCH ×3 (09:47→21:58)
[2017-12-11] MEDS: ENOXAPARIN NA (PORCINE) 80 MG/0.8 ML DISP.SYRIN SQ SCH ×2 (09:56→21:58)
--- NOTE | 2017-12-11 10:45 | PN ---
Progress Note (short form) - Note Progress Note: Renal follow up for SALBADOR Pt seen and examined at the bedside no acute complaints no sob, cp, abd pain, N/V/D Vital Signs Temperature 97.6 F 12/11/17 06:00 Pulse Rate 84 12/11/17 06:00 Respiratory Rate 20 12/11/17 06:00 Blood Pressure 123/71 12/11/17 06:00 O2 Sat by Pulse Oximetry (%) 100 12/10/17 21:00 Intake & Output 12/08/17 12/09/17 12/10/17 12/11/17 23:59 23:59 23:59 23:59 Intake Total 2019 700 800 Output Total 1999 1150 Balance 20 -450 800 NAD RRR, No M/R CTA, no rales or wheeze soft NT/ND No LE edema CBC, BMP 12/11/17 06:45 12/11/17 06:45 Current Medications Acetaminophen (Tylenol -) 650 mg PO Q6H PRN PRN Reason: FEVER Bisacodyl (Dulcolax -) 20 mg PO ONCE ONE Stop: 12/12/17 15:01 Enoxaparin Sodium (Lovenox -) 80 mg SQ BID ODILIA Last Admin: 12/11/17 09:56 Dose: 80 mg Daptomycin 650 mg/ Sodium (Chloride) 50 mls @ 50 mls/hr IVPB DAILY@1800 ODILIA; Protocol Last Admin: 12/10/17 17:18 Dose: 50 mls/hr Ceftaroline Fosamil 600 mg/ (Dextrose) 100 mls @ 100 mls/hr IVPB Q12H ODILIA; Protocol Last Admin: 12/11/17 09:47 Dose: 100 mls/hr Polyethylene Glycol/Electrolytes (Golytely Solution -) 4,000 ml PO ONCE ONE Stop: 12/12/17 17:01 32 year old AA gentleman with Hx of Salbador requring dialysis from Rhabdomyolysis + Legionella now with catheter related bacteremia. #Acute Renal failure now improved #MRSA bacteremia #Iatrogenic subclavian vein thrombosis #Aneima/GIB #Hyperphosphatemia Renal function stable 1/2 bottle from 12/06 were positive repeat cultures drawn on 12/07 Continue Abx as per ID Trend Phos levels for EGD/ANDERS next week Rojas Edmondson DO
--- NOTE | 2017-12-11 12:00 | PN ---
Progress Note, Physician History of Present Illness: Awake , alert No complaints Afebrile WBC WNL - Current Medication List Current Medications: Active Medications Acetaminophen (Tylenol -) 650 mg PO Q6H PRN PRN Reason: FEVER Bisacodyl (Dulcolax -) 20 mg PO ONCE ONE Stop: 12/12/17 15:01 Enoxaparin Sodium (Lovenox -) 80 mg SQ BID ODILIA Last Admin: 12/11/17 09:56 Dose: 80 mg Daptomycin 650 mg/ Sodium (Chloride) 50 mls @ 50 mls/hr IVPB DAILY@1800 ODILIA; Protocol Last Admin: 12/10/17 17:18 Dose: 50 mls/hr Ceftaroline Fosamil 600 mg/ (Dextrose) 100 mls @ 100 mls/hr IVPB Q12H ODILIA; Protocol Last Admin: 12/11/17 09:47 Dose: 100 mls/hr Polyethylene Glycol/Electrolytes (Golytely Solution -) 4,000 ml PO ONCE ONE Stop: 12/12/17 17:01 - Objective Vital Signs: Vital Signs Temperature 97.6 F 12/11/17 06:00 Pulse Rate 84 12/11/17 06:00 Respiratory Rate 20 12/11/17 06:00 Blood Pressure 123/71 12/11/17 06:00 O2 Sat by Pulse Oximetry (%) 100 12/10/17 21:00 Constitutional: Yes: No Distress Eyes: Yes: Conjunctiva Clear Cardiovascular: Yes: Regular Rate and Rhythm, S1, S2 Respiratory: Yes: CTA Bilaterally Gastrointestinal: Yes: Normal Bowel Sounds, Soft. No: Tenderness Edema: No Labs: CBC, BMP 12/11/17 06:45 12/11/17 06:45 INR, PTT INR 1.42 (0.83-1.09) H 12/04/17 16:35 Assessment/Plan MRSA bacteremia R IJ thrombus S/P legionella pneumonia Repeat BC am For ANDERS next week Continue daptomycin/ ceftaroline
--- NOTE | 2017-12-11 15:56 | PN ---
Progress Note (short form) - Note Progress Note: Patient is feeling better, no further bleed, denies any shortness of breaths. NO fever or chills. Vital Signs Temperature 98.4 F 12/11/17 14:50 Pulse Rate 78 12/11/17 14:50 Respiratory Rate 18 12/11/17 14:50 Blood Pressure 118/67 12/11/17 14:50 O2 Sat by Pulse Oximetry (%) 100 12/11/17 09:00 GENERAL: A&O x 3, NAD HEAD: NC/AT EYES: PERRLA, EOMI EARS, NOSE, THROAT: Moist mucous membranes. NECK: R neck w/ thickened vessel, non-tender LUNGS: Breath sounds equal, clear to auscultation bilaterally. No wheezes, and no crackles. No accessory muscle use. HEART: Tachycardic, no m/r/g ABDOMEN: Soft, nontender, not distended, normoactive bowel sounds, no guarding, no rebound, no masses. No hepatomegaly or splenomegaly. EXTREMITIES: No stigmata of endocarditis. 2+ pulses, warm, well-perfused. No cyanosis. No clubbing. No calf tenderness. No peripheral edema. NEUROLOGICAL: mild Dysarthria ,otherwise no focal deficits. Gait not observed. PSYCHIATRIC: Cooperative. Good eye contact. Appropriate mood and affect. SKIN: Warm, dry, normal turgor, no rashes or lesions noted, normal capillary refill. CBCD WBC 5.5 K/mm3 (4.0-10.0) 12/11/17 06:45 RBC 2.86 M/mm3 (4.00-5.60) L 12/11/17 06:45 Hgb 8.5 GM/dL (11.7-16.9) L 12/11/17 06:45 Hct 25.0 % (35.4-49) L 12/11/17 06:45 MCV 87.4 fl (80-96) 12/11/17 06:45 MCHC 33.9 g/dl (32.0-35.9) 12/11/17 06:45 RDW 12.8 % (11.9-15.9) 12/11/17 06:45 Plt Count 349 K/MM3 (134-434) 12/11/17 06:45 MPV 6.5 fl (7.5-11.1) L 12/11/17 06:45 CMP Sodium 142 mmol/L (136-145) 12/11/17 06:45 Potassium 3.5 mmol/L (3.5-5.1) 12/11/17 06:45 Chloride 109 mmol/L (98-107) H 12/11/17 06:45 Carbon Dioxide 24 mmol/L (21-32) 12/11/17 06:45 Anion Gap 9 MMOL/L (8-16) 12/11/17 06:45 BUN 7 mg/dL (7-18) 12/11/17 06:45 Creatinine 1.6 mg/dL (0.55-1.3) H 12/11/17 06:45 Creat Clearance w eGFR 50.67 (>60) 12/11/17 06:45 Random Glucose 82 mg/dL (74-106) 12/11/17 06:45 Calcium 8.4 mg/dL (8.5-10.1) L 12/11/17 06:45 Total Bilirubin 0.4 mg/dL (0.2-1.0) 12/08/17 06:30 AST 27 U/L (15-37) 12/06/17 07:00 ALT 54 U/L (12-78) 12/06/17 07:00 Alkaline Phosphatase 99 U/L (45-117) D 12/06/17 07:00 Total Protein 5.7 g/dl (6.4-8.2) L D 12/06/17 07:00 Albumin 2.5 g/dl (3.4-5.0) L 12/06/17 07:00 CARDIAC ENZYMES Creatine Kinase 25 IU/L (26-308) L 12/11/17 06:45 Troponin I < 0.02 ng/ml (0.00-0.05) D 12/04/17 16:40 Current Medications Generic Name Dose Route Start Last Admin Trade Name Freq PRN Reason Stop Dose Admin Acetaminophen 650 mg 12/05/17 11:53 Tylenol - PO Q6H PRN FEVER Bisacodyl 20 mg 12/12/17 15:00 Dulcolax - PO 12/12/17 15:01 ONCE ONE Enoxaparin Sodium 80 mg 12/10/17 22:00 12/11/17 09:56 Lovenox - SQ 80 mg BID ODILIA Administration Daptomycin 650 mg/ Sodium 50 mls @ 50 mls/hr 12/08/17 18:00 12/10/17 17:18 Chloride IVPB 50 mls/hr DAILY@1800 ODILIA Administration Protocol Ceftaroline Fosamil 600 mg/ 100 mls @ 100 mls/hr 12/10/17 22:00 12/11/17 09: 47 Dextrose IVPB 100 mls/hr Q12H ODILIA Administration Protocol Polyethylene Glycol/Electrolytes 4,000 ml 12/12/17 17:00 Golytely Solution - PO 12/12/17 17:01 ONCE ONE Home Medications Medication Instructions Recorded Ergocalciferol (Vitamin D2) 50,000 unit PO WEEKLY 12/04/17 [Drisdol] Hydrocortisone 2.5% Topical Cr 1 applic RC BID 12/04/17 [Anusol 2.5% Hc Cream -] Torsemide [Demadex] 80 mg PO DAILY 12/04/17 Microbiology 12/07/17 16:30 Blood - Peripheral Venous Blood Culture - Final S Aureus 12/06/17 07:00 Blood - Peripheral Venous Blood Culture - Preliminary NO GROWTH OBTAINED AFTER 96 HOURS, INCUBATION TO CONTINUE FOR 1 DAYS. 12/07/17 17:00 Blood - Peripheral Venous Blood Culture - Preliminary NO GROWTH OBTAINED AFTER 48 HOURS, INCUBATION TO CONTINUE FOR 3 DAYS. 12/04/17 20:01 Catheter Site Gram Stain - Final 12/04/17 20:01 Catheter Site Wound Culture - Final Escherichia Coli S Aureus Enterococcus Faecalis 12/06/17 07:00 Blood - Peripheral Venous Blood Culture - Final S Aureus 12/07/17 15:00 Stool Clostridium difficile Antigen (JOSE CARLOS) - Final 12/07/17 15:00 Stool Clostridium difficile Toxin Assay - Final 12/06/17 07:00 Serum Legionella Serology - Final 12/04/17 16:35 Blood - Peripheral Venous Blood Culture - Final Mr S Aureus 12/04/17 17:30 Urine - Urine Clean Catch Urine Culture - Final Mr S Aureus 12/04/17 16:35 Blood - Peripheral Venous Blood Culture - Final S Aureus ASSESSMENT AND PLAN: Patient is a 32 y/o man with h/o recent admission to [facility] for sepsis /leginella PNA, SALBADOR, Rhabdo, and demand ischemia who was started on HD and was sent to rehab. he comes back with fever and Right sided neck pain. Patient does not need HD since improved his Kidney function. # R internal Jugular vein thrombosis. On Lovenox 80mg BID continue , HR improved , H/H is stable 8.5 today , discussed with Gi , agrees to continue AC for an extensive Jugular vein thrombosis; ( was on hold before due to gi bleed, ) will continue to monitor h/h, repeat US in 1 week to see progression / resolution of clot # s/p sepsis due to MRSA bacteremia due to infected HD catheter: s/p removal of the permacath, On IV daptomycin and ceftaroline continue, was on Vancomycin, ID on the case. No further growth. No fever today. # MRSA Bacteremia persistant possible due to thrombus vs endocarditis. On IV daptomycin and ceftarolineon now , echo is negative for vegetation, will need ANDERS , discussed with Cardio for Possible Wednesday. # Acute blood loss with Anemia as per Hematology is chronic in nature ,and is suggested to get Blood transfusion one unit prior to EGD/colonoscopy by Hematology .for EGD/Colonoscopy on Wednesday # h/o recent SALBADOR due to rabdo: renal function recovered and does not need HD again # s/p Rectal bleed. rectal exam with internal hemorrhoids. suspect hemorrhoidal bleed . # Recent legionella PNA and sepsis. history of legionella- convalescent serology positive; was here 11/01 to 11/15 EGD/Colonoscopy on Wednesday ANDERS on post EGD and Colonoscopy On Lovenox 80mg sq Bid for RIJ extensive thrombose monitor H/H Visit type - Emergency Visit Emergency Visit: Yes ED Registration Date: 12/04/17 Care time: The patient presented to the Emergency Department on the above date and was hospitalized for further evaluation of their emergent condition. - New Patient This patient is new to me today: No - Critical Care Critical Care patient: No - Discharge Referral Referred to [facility] Med P.C.: No
[2017-12-11] MEDS: DAPTOMYCIN 650 MG in SODIUM CHLORIDE 50 ML IVPB SCH (17:36)
[2017-12-11 21:12] VITALS: BMI 24.6
[2017-12-12 07:46] LABS: BASO % 0.8 % (0-2.0); EOS % 6.3 % (0-4.5); HEMATOCRIT 22.6 % (35.4-49); HEMOGLOBIN 7.8 GM/dL (11.7-16.9); LYMPH % 42.9 % (8-40); MCH 29.6 pg (25.7-33.7); MCHC 34.5 g/dl (32.0-35.9); MEAN PLT VOLUME 6.3 fl (7.5-11.1); MONO % 5.6 % (3.8-10.2); NEUT % 44.4 % (42.8-82.8); PLATELET COUNT 408 K/MM3 (134-434); RBC 2.62 M/mm3 (4.00-5.60); RDW 13.1 % (11.9-15.9); WHITE BLOOD COUNT 4.7 K/mm3 (4.0-10.0)
[2017-12-12 08:49] LABS: ANION GAP 9 MMOL/L (8-16); BLOOD UREA NITROGEN 6 mg/dL (7-18); CALCIUM 8.2 mg/dL (8.5-10.1); CHLORIDE 112 mmol/L (98-107); CO2 23 mmol/L (21-32); CREATININE 1.4 mg/dL (0.55-1.3); GLUCOSE,RANDOM 83 mg/dL (74-106); MAGNESIUM 1.6 mg/dL (1.8-2.4); PHOSPHOROUS 5.1 mg/dL (2.5-4.9); POTASSIUM 3.6 mmol/L (3.5-5.1); SODIUM 144 mmol/L (136-145)
--- NOTE | 2017-12-12 09:07 | PN ---
Teaching Attending Note Name of Resident: Barney Justin ATTENDING PHYSICIAN STATEMENT I saw and evaluated the patient. I reviewed the resident's note and discussed the case with the resident. I agree with the resident's findings and plan as documented. SUBJECTIVE: Patient is comfortable with no acute distress. OBJECTIVE: Vital Signs Temperature 98.0 F 12/12/17 06:00 Pulse Rate 64 12/12/17 06:00 Respiratory Rate 18 12/12/17 06:00 Blood Pressure 125/65 12/12/17 06:00 O2 Sat by Pulse Oximetry (%) 99 12/11/17 21:00 CBCD WBC 4.7 K/mm3 (4.0-10.0) 12/12/17 06:30 RBC 2.62 M/mm3 (4.00-5.60) L 12/12/17 06:30 Hgb 7.8 GM/dL (11.7-16.9) L 12/12/17 06:30 Hct 22.6 % (35.4-49) L 12/12/17 06:30 MCV 86.0 fl (80-96) 12/12/17 06:30 MCHC 34.5 g/dl (32.0-35.9) 12/12/17 06:30 RDW 13.1 % (11.9-15.9) 12/12/17 06:30 Plt Count 408 K/MM3 (134-434) 12/12/17 06:30 MPV 6.3 fl (7.5-11.1) L 12/12/17 06:30 CMP Sodium 144 mmol/L (136-145) 12/12/17 06:30 Potassium 3.6 mmol/L (3.5-5.1) 12/12/17 06:30 Chloride 112 mmol/L (98-107) H 12/12/17 06:30 Carbon Dioxide 23 mmol/L (21-32) 12/12/17 06:30 Anion Gap 9 MMOL/L (8-16) 12/12/17 06:30 BUN 6 mg/dL (7-18) L 12/12/17 06:30 Creatinine 1.4 mg/dL (0.55-1.3) H 12/12/17 06:30 Creat Clearance w eGFR 59.11 (>60) 12/12/17 06:30 Random Glucose 83 mg/dL (74-106) 12/12/17 06:30 Calcium 8.2 mg/dL (8.5-10.1) L 12/12/17 06:30 Total Bilirubin 0.4 mg/dL (0.2-1.0) 12/08/17 06:30 AST 27 U/L (15-37) 12/06/17 07:00 ALT 54 U/L (12-78) 12/06/17 07:00 Alkaline Phosphatase 99 U/L (45-117) D 12/06/17 07:00 Total Protein 5.7 g/dl (6.4-8.2) L D 12/06/17 07:00 Albumin 2.5 g/dl (3.4-5.0) L 12/06/17 07:00 CARDIAC ENZYMES Creatine Kinase 25 IU/L (26-308) L 12/11/17 06:45 Troponin I < 0.02 ng/ml (0.00-0.05) D 12/04/17 16:40 Current Medications Generic Name Dose Route Start Last Admin Trade Name Freq PRN Reason Stop Dose Admin Acetaminophen 650 mg 12/05/17 11:53 Tylenol - PO Q6H PRN FEVER Bisacodyl 20 mg 12/12/17 15:00 Dulcolax - PO 12/12/17 15:01 ONCE ONE Enoxaparin Sodium 80 mg 12/10/17 22:00 12/11/17 21:58 Lovenox - SQ 80 mg BID ODILIA Administration Daptomycin 650 mg/ Sodium 50 mls @ 50 mls/hr 12/08/17 18:00 12/11/17 17:36 Chloride IVPB 50 mls/hr DAILY@1800 ODILIA Administration Protocol Ceftaroline Fosamil 600 mg/ 100 mls @ 100 mls/hr 12/10/17 22:00 12/11/17 21: 58 Dextrose IVPB 100 mls/hr Q12H ODILIA Administration Protocol Polyethylene Glycol/Electrolytes 4,000 ml 12/12/17 17:00 Golytely Solution - PO 12/12/17 17:01 ONCE ONE Home Medications Medication Instructions Recorded Ergocalciferol (Vitamin D2) 50,000 unit PO WEEKLY 12/04/17 [Drisdol] Hydrocortisone 2.5% Topical Cr 1 applic RC BID 12/04/17 [Anusol 2.5% Hc Cream -] Torsemide [Demadex] 80 mg PO DAILY 12/04/17 Microbiology 12/07/17 17:00 Blood - Peripheral Venous Blood Culture - Preliminary NO GROWTH OBTAINED AFTER 96 HOURS, INCUBATION TO CONTINUE FOR 1 DAYS. 12/09/17 16:30 Blood - Peripheral Venous Blood Culture - Preliminary NO GROWTH OBTAINED AFTER 48 HOURS, INCUBATION TO CONTINUE FOR 3 DAYS. 12/09/17 16:30 Blood - Peripheral Venous Blood Culture - Preliminary NO GROWTH OBTAINED AFTER 48 HOURS, INCUBATION TO CONTINUE FOR 3 DAYS. 12/06/17 07:00 Blood - Peripheral Venous Blood Culture - Final NO GROWTH AFTER 5 DAYS INCUBATION 12/07/17 16:30 Blood - Peripheral Venous Blood Culture - Final S Aureus 12/04/17 20:01 Catheter Site Gram Stain - Final 12/04/17 20:01 Catheter Site Wound Culture - Final Escherichia Coli S Aureus Enterococcus Faecalis 12/06/17 07:00 Blood - Peripheral Venous Blood Culture - Final S Aureus 12/07/17 15:00 Stool Clostridium difficile Antigen (JOSE CARLOS) - Final 12/07/17 15:00 Stool Clostridium difficile Toxin Assay - Final 12/06/17 07:00 Serum Legionella Serology - Final 12/04/17 16:35 Blood - Peripheral Venous Blood Culture - Final S Aureus 12/04/17 17:30 Urine - Urine Clean Catch Urine Culture - Final S Aureus 12/04/17 16:35 Blood - Peripheral Venous Blood Culture - Final S Aureus PE: per resident's note ASSESSMENT AND PLAN: Patient is a 32 y/o man with h/o recent admission to [facility] for sepsis /leginella PNA, SALBADOR, Rhabdo, and demand ischemia who was started on HD and was sent to rehab. he comes back with fever and Right sided neck pain. Patient does not need HD since improved his Kidney function. # R internal Jugular vein thrombosis. On Lovenox 80mg BID continue , HR improved , H/H is stable 8.5 today , discussed with Gi , agrees to continue AC for an extensive Jugular vein thrombosis; ( was on hold before due to gi bleed, ) will continue to monitor h/h, repeat US in 1 week to see progression / resolution of clot # s/p sepsis due to MRSA bacteremia due to infected HD catheter: s/p removal of the permacath, On IV daptomycin and ceftaroline continue, was on Vancomycin, ID on the case. No further growth. No fever today. # MRSA Bacteremia persistant possible due to thrombus vs endocarditis. On IV daptomycin and ceftarolineon continue , echo is negative for vegetation, will need ANDERS , discussed with Cardio for Possible Wednesday. # Acute blood loss with Anemia as per Hematology is chronic in nature ,and is suggested to get Blood transfusion one unit prior to EGD/colonoscopy by Hematology .for EGD/Colonoscopy on Wednesday # h/o recent SALBADOR due to rabdo: renal function recovered and does not need HD again # s/p Rectal bleed. rectal exam with internal hemorrhoids. suspect hemorrhoidal bleed . # Recent legionella PNA and sepsis. history of legionella- convalescent serology positive; was here 11/01 to 11/15 EGD/Colonoscopy on Wednesday ANDERS on post EGD and Colonoscopy On Lovenox 80mg sq Bid for RIJ extensive thrombose monitor H/H
[2017-12-12] MEDS ORDERED: PT OWN MED DRAWER 7, Y5N ONE (09:50)
[2017-12-12] MEDS: CEFTAROLINE FOSAMIL ACETATE 600 MG in DEXTROSE 5%-WATER - 100 ML IVPB SCH ×2 (09:55→22:55)
[2017-12-12] MEDS: ENOXAPARIN NA (PORCINE) 80 MG/0.8 ML DISP.SYRIN SQ SCH (09:56)
[2017-12-12] MEDS ORDERED: MAGNESIUM SULF 50% (8.12 MEQ/2 ML-1 GM VIAL) IVPB ONE (10:30)
--- NOTE | 2017-12-12 10:45 | PN ---
Physical Exam: SUBJECTIVE: Patient seen and examined at bedside. Diarrhea resolved, no further BRBPR. 1 episode of tachy to 104 overnight, now resolved. Otherwise feels comfortable. OBJECTIVE: Vital Signs Period Temp Pulse Resp BP Sys/Dangelo Pulse Ox Last 24 Hr 98.0 F-98.7 F 64-105 18-18 118-141/65-73 99 GENERAL: A&O x 3, NAD HEAD: NC/AT EYES: PERRLA, EOMI EARS, NOSE, THROAT: Moist mucous membranes. NECK: R neck w/ thickened vessel, non-tender LUNGS: Breath sounds equal, clear to auscultation bilaterally. No wheezes, and no crackles. No accessory muscle use. HEART: Tachycardic, no m/r/g ABDOMEN: Soft, nontender, not distended, normoactive bowel sounds, no guarding, no rebound, no masses. No hepatomegaly or splenomegaly. EXTREMITIES: No stigmata of endocarditis. 2+ pulses, warm, well-perfused. No cyanosis. No clubbing. No calf tenderness. No peripheral edema. NEUROLOGICAL: Dysarthria vs. speech impediment, otherwise no focal deficits. Gait not observed. PSYCHIATRIC: Cooperative. Good eye contact. Appropriate mood and affect. SKIN: Warm, dry, normal turgor, no rashes or lesions noted, normal capillary refill. Laboratory Results - last 24 hr 12/12/17 12/12/17 06:30 06:30 WBC 4.7 RBC 2.62 L Hgb 7.8 L Hct 22.6 L MCV 86.0 MCH 29.6 MCHC 34.5 RDW 13.1 Plt Count 408 MPV 6.3 L Absolute Neuts (auto) 2.1 Neutrophils % 44.4 Lymphocytes % 42.9 H Monocytes % 5.6 Eosinophils % 6.3 H Basophils % 0.8 Nucleated RBC % 0 Sodium 144 Potassium 3.6 Chloride 112 H Carbon Dioxide 23 Anion Gap 9 BUN 6 L Creatinine 1.4 H Creat Clearance w eGFR 59.11 Random Glucose 83 Calcium 8.2 L Phosphorus 5.1 H Magnesium 1.6 L Active Medications Generic Name Dose Route Start Last Admin Trade Name Freq PRN Reason Stop Dose Admin Acetaminophen 650 mg 12/05/17 11:53 Tylenol - PO Q6H PRN FEVER Bisacodyl 20 mg 12/12/17 15:00 Dulcolax - PO 12/12/17 15:01 ONCE ONE Enoxaparin Sodium 80 mg 12/10/17 22:00 12/12/17 09:56 Lovenox - SQ 80 mg BID ODILIA Administration Daptomycin 650 mg/ Sodium 50 mls @ 50 mls/hr 12/08/17 18:00 12/11/17 17:36 Chloride IVPB 50 mls/hr DAILY@1800 ODILIA Administration Protocol Ceftaroline Fosamil 600 mg/ 100 mls @ 100 mls/hr 12/10/17 22:00 12/12/17 09: 55 Dextrose IVPB 100 mls/hr Q12H ODILIA Administration Protocol Polyethylene Glycol/Electrolytes 4,000 ml 12/12/17 17:00 Golytely Solution - PO 12/12/17 17:01 ONCE ONE ASSESSMENT/PLAN: 32 y/o M w/ 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 for acute rehab. Now presents with fever, nausea and NBNB vomiting, and tenderness at permacath site x 1 day. Admitted for sepsis 2/2 permacath infection. #Sepsis 2/2 permacath infection -ID consulted (Dr. Garcia) -BCx and UCx 12/04 positive for MRSA -repeat BCx 12/06 positive for MRSA -re-repeat BCx 12/07 positive MRSA -[id number]-[id number] BCx 12/09 NGTD -[id number]-[id number]-repeat BCx 12/12 pending -WCx preliminarily positive for E coli, enterococcus, MRSA -- may be contaminated -Legionella serology positive -cont daptomycin and ceftaroline -Vascular consulted (Dr. Vallecillo) #anemia -Pt noted rectal blood -Hgb 7.8 this AM, repeat CBC tomorrow -follow and transfuse if <7 -GI consulted, Dr. Mora following -for upper and lower endoscopy tomorrow, now having bowel prep -FOBT negative and BERNICE OB negative -hematology consulted (Dr. Lynne) #right IJV thrombus -extensive thrombus found on duplex -Lovenox restarted per hematology recc, holding HS for endoscopy tomorrow -will repeat duplex on 12/13 (one week after initial) -Vascular consulted (Dr. Valleicllo) #diarrhea -resolved -C Diff negative -monitor and replete lytes #r/o endocarditis -TTE negative -cardiology consulted ([facility]) -ANDERS planned Wednesday w/ Dr. Mendiola #h/o ARF, rhabdo -Cr 1.4 -Nephro (Dr. Edmondson) consulted -per nephro, kidney injury is resolved, no need for cath replacement or further dialysis -IVF d/c'd per nephro #metabolic derangement -repleting K, Mg as necessary -following BMP, Mg, Phos #nausea -resolved -QTc 429 -Zofran PRN #FEN -IVF d/c'd -monitor and replete lytes -now clear liquid, NPO after midnight #PPx -DVT: Lovenox to be held pending endoscopy #dispo -med/surg Visit type - Emergency Visit Emergency Visit: No - New Patient This patient is new to me today: No - Critical Care Critical Care patient: No
[2017-12-12 12:12] LABS: ANISOCYTOSIS 0; MACROCYTOSIS 0; PLATELET ESTIMATE NORMAL
[2017-12-12] MEDS ORDERED: BISACODYL 5 MG TABLET.DR (FP) PO ONE (15:00)
[2017-12-12] MEDS ORDERED: PEG 3350/NA SULF BICARB CL/KCL 4000 ML SOLN.RECON PO ONE (17:00)
[2017-12-12] MEDS: DAPTOMYCIN 650 MG in SODIUM CHLORIDE 50 ML IVPB SCH (17:07)
--- NOTE | 2017-12-12 21:12 | EKG ---
Test Reason : Blood Pressure : / mmHG Vent. Rate : 084 BPM Atrial Rate : 084 BPM P-R Int : 142 ms QRS Dur : 082 ms QT Int : 372 ms P-R-T Axes : 031 022 010 degrees QTc Int : 439 ms NORMAL SINUS RHYTHM WITH SINUS ARRHYTHMIA NONSPECIFIC ST AND T WAVE ABNORMALITY ABNORMAL ECG WHEN COMPARED WITH ECG OF 04-DEC-2017 16:38, VENT. RATE HAS DECREASED BY 51 BPM NON-SPECIFIC CHANGE IN ST SEGMENT IN ANTERIOR LEADS NONSPECIFIC T WAVE ABNORMALITY HAS REPLACED INVERTED T WAVES IN INFERIOR LEADS NONSPECIFIC T WAVE ABNORMALITY HAS REPLACED INVERTED T WAVES IN LATERAL LEADS Confirmed by CHELSEY SOTO MD ([id number]) on 12/12/2017 9:11:36 PM Referred By: Jorge TY Confirmed By:CHELSEY SOTO MD
[2017-12-13 07:33] LABS: BASO % 1.2 % (0-2.0); EOS % 6.1 % (0-4.5); HEMATOCRIT 22.3 % (35.4-49); HEMOGLOBIN 7.7 GM/dL (11.7-16.9); LYMPH % 40.6 % (8-40); MCH 29.9 pg (25.7-33.7); MCHC 34.7 g/dl (32.0-35.9); MEAN CELL VOLUME 86.1 fl (80-96); MEAN PLT VOLUME 6.3 fl (7.5-11.1); MONO % 8.5 % (3.8-10.2); NEUT % 43.6 % (42.8-82.8); PLATELET COUNT 464 K/MM3 (134-434); RBC 2.59 M/mm3 (4.00-5.60); RDW 12.9 % (11.9-15.9); WHITE BLOOD COUNT 3.9 K/mm3 (4.0-10.0)
[2017-12-13 07:51] LABS: INR 1.28 (0.83-1.09); PROTHROMBIN TIME (PATIENT) 14.5 SEC (9.7-13.0)
[2017-12-13 07:59] LABS: ALBUMIN 2.5 g/dl (3.4-5.0); ANION GAP 12 MMOL/L (8-16); BLOOD UREA NITROGEN 4 mg/dL (7-18); CALCIUM 8.5 mg/dL (8.5-10.1); CHLORIDE 109 mmol/L (98-107); CO2 24 mmol/L (21-32); GLUCOSE,RANDOM 84 mg/dL (74-106); POTASSIUM 3.4 mmol/L (3.5-5.1); SODIUM 145 mmol/L (136-145)
[2017-12-13 08:05] LABS: ALK PHOS 79 U/L (45-117); BILIRUBIN,TOTAL 0.3 mg/dL (0.2-1.0); CREATININE 1.3 mg/dL (0.55-1.3); MAGNESIUM 1.6 mg/dL (1.8-2.4); PHOSPHOROUS 4.3 mg/dL (2.5-4.9); SGOT/AST 15 U/L (15-37); SGPT/ALT 31 U/L (13-61)
[2017-12-13] MEDS: CEFTAROLINE FOSAMIL ACETATE 600 MG in DEXTROSE 5%-WATER - 100 ML IVPB SCH ×2 (10:06→21:54)
--- NOTE | 2017-12-13 11:41 | PN ---
Progress Note (short form) - Note Progress Note: Renal follow up for SALBADOR Pt seen and examined at the bedside no acute complaints no sob, cp, abd pain, N/V/D Vital Signs Temperature 98.2 F 12/13/17 09:16 Pulse Rate 64 12/13/17 09:16 Respiratory Rate 18 12/13/17 09:16 Blood Pressure 131/67 12/13/17 09:16 O2 Sat by Pulse Oximetry (%) 99 12/12/17 21:00 Intake & Output 12/10/17 12/11/17 12/12/17 12/13/17 23:59 23:59 23:59 23:59 Intake Total 800 300 350 340 Output Total 400 0 Balance 800 300 -50 340 Weight 87 kg NAD RRR, No M/R CTA, no rales or wheeze soft NT/ND No LE edema CBC, BMP 12/13/17 06:30 12/13/17 06:30 Current Medications Acetaminophen (Tylenol -) 650 mg PO Q6H PRN PRN Reason: FEVER Enoxaparin Sodium (Lovenox -) 80 mg SQ BID ODILIA Last Admin: 12/12/17 09:56 Dose: 80 mg Daptomycin 650 mg/ Sodium (Chloride) 50 mls @ 50 mls/hr IVPB DAILY@1800 ODILIA; Protocol Last Admin: 12/12/17 17:07 Dose: 50 mls/hr Ceftaroline Fosamil 600 mg/ (Dextrose) 100 mls @ 100 mls/hr IVPB Q12H ODILIA; Protocol Last Admin: 12/13/17 10:06 Dose: 100 mls/hr 32 year old AA gentleman with Hx of Salbador requring dialysis from Rhabdomyolysis + Legionella now with catheter related bacteremia. #Acute Renal failure now improved #MRSA bacteremia #Iatrogenic subclavian vein thrombosis #Aneima/GIB #Hyperphosphatemia Renal function improved and stable for Endoscopy today to eval for anemai/bleeding ANDERS planned for tomorrow cultures now negative continue Abx as per ID Check CK levels Rojas Edmondson DO
--- NOTE | 2017-12-13 13:11 | PN ---
Physical Exam: SUBJECTIVE: Patient seen and examined at bedside. Diarrhea resolved, no further BRBPR. VS stable. Otherwise feels comfortable. OBJECTIVE: Vital Signs Period Temp Pulse Resp BP Sys/Dangelo Pulse Ox Last 24 Hr 98.0 F-98.4 F 64-92 16-18 110-143/55-84 99 GENERAL: A&O x 3, NAD HEAD: NC/AT EYES: PERRLA, EOMI EARS, NOSE, THROAT: Moist mucous membranes. NECK: R neck w/ thickened vessel, non-tender LUNGS: Breath sounds equal, clear to auscultation bilaterally. No wheezes, and no crackles. No accessory muscle use. HEART: Tachycardic, no m/r/g ABDOMEN: Soft, nontender, not distended, normoactive bowel sounds, no guarding, no rebound, no masses. No hepatomegaly or splenomegaly. EXTREMITIES: No stigmata of endocarditis. 2+ pulses, warm, well-perfused. No cyanosis. No clubbing. No calf tenderness. No peripheral edema. NEUROLOGICAL: Dysarthria vs. speech impediment, otherwise no focal deficits. Gait not observed. PSYCHIATRIC: Cooperative. Good eye contact. Appropriate mood and affect. SKIN: Warm, dry, normal turgor, no rashes or lesions noted, normal capillary refill. Laboratory Results - last 24 hr 12/13/17 12/13/17 12/13/17 06:30 06:30 06:30 WBC 3.9 L RBC 2.59 L Hgb 7.7 L Hct 22.3 L MCV 86.1 MCH 29.9 MCHC 34.7 RDW 12.9 Plt Count 464 H MPV 6.3 L Absolute Neuts (auto) 1.7 Neutrophils % 43.6 Lymphocytes % 40.6 H Monocytes % 8.5 Eosinophils % 6.1 H Basophils % 1.2 Nucleated RBC % 0 PT with INR 14.50 H INR 1.28 H Sodium 145 Potassium 3.4 L Chloride 109 H Carbon Dioxide 24 Anion Gap 12 BUN 4 L Creatinine 1.3 Creat Clearance w eGFR > 60 Random Glucose 84 Calcium 8.5 Phosphorus 4.3 Magnesium 1.6 L Total Bilirubin 0.3 AST 15 ALT 31 Alkaline Phosphatase 79 Total Protein 6.0 L Albumin 2.5 L Active Medications Generic Name Dose Route Start Last Admin Trade Name Freq PRN Reason Stop Dose Admin Acetaminophen 650 mg 12/05/17 11:53 Tylenol - PO Q6H PRN FEVER Enoxaparin Sodium 80 mg 12/10/17 22:00 12/12/17 09:56 Lovenox - SQ 80 mg BID ODILIA Administration Daptomycin 650 mg/ Sodium 50 mls @ 50 mls/hr 12/08/17 18:00 12/12/17 17:07 Chloride IVPB 50 mls/hr DAILY@1800 ODILIA Administration Protocol Ceftaroline Fosamil 600 mg/ 100 mls @ 100 mls/hr 12/10/17 22:00 12/13/17 10: 06 Dextrose IVPB 100 mls/hr Q12H ODILIA Administration Protocol ASSESSMENT/PLAN: 32 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 Now presents with fever, nausea and NBNB vomiting, and tenderness at permacath site x 1 day. Admitted for sepsis 2/2 permacath infection. #Sepsis 2/2 permacath infection -ID consulted (Dr. Garcia) -BCx and UCx 12/04 positive for MRSA -repeat BCx 12/06 positive for MRSA -re-repeat BCx 12/07 positive MRSA -[id number] BCx 12/09 NGTD -ck-du-bg-repeat BCx 12/12 NGTD -WCx positive for E coli, enterococcus, MRSA -- may be contaminated -Legionella serology positive -cont daptomycin and ceftaroline -Vascular consulted (Dr. Vallecillo) -will need re-catheterization (likely tunnel catheter) for long-term ABx w/ IR #anemia -Pt noted rectal blood -Hgb 7.7 this AM, repeat CBC tomorrow -follow and transfuse if <7 -GI consulted, Dr. Mora following -upper and lower endoscopy today -per GI: "Normal upper endoscopy, Mild sigmoid, erythematous colitis. Avoid NSAIDs. Follow biopsies in 1 week in office" -FOBT negative and BERNICE OB negative -hematology consulted (Dr. Lynne) #right IJV thrombus -extensive thrombus found on duplex 12/06 -repeat duplex 12/13 showed decrease in thrombus size #diarrhea -resolved -C Diff negative -monitor and replete lytes #r/o endocarditis -TTE negative -cardiology consulted ([facility]) -ANDERS tomorrow w/ Dr. Mendiola #h/o ARF, rhabdo -Cr 1.4 -Nephro (Dr. Edmondson) consulted -per nephro, kidney injury is resolved, no need for cath replacement or further dialysis -IVF d/c'd per nephro #metabolic derangement -repleting K, Mg as necessary -following BMP, Mg, Phos #nausea -resolved -QTc 429 -Zofran PRN #FEN -IVF d/c'd -monitor and replete lytes -regular diet, then NPO after midnight pending ANDERS #PPx -DVT: Lovenox to be held pending ANDERS #dispo -med/surg Visit type - Emergency Visit Emergency Visit: No - New Patient This patient is new to me today: No - Critical Care Critical Care patient: No
--- NOTE | 2017-12-13 13:14 | PROC ---
Endoscopy Procedure Endoscopy procedure completed. Please see scanned procedure report. Normal upper endoscopy Mild sigmoid, erythematous colitis Avoid NSAIDs. Follow biopsies in 1 week in office
--- NOTE | 2017-12-13 16:32 | PN ---
Progress Note (short form) - Note Progress Note: no complaints s/p endoscopy, mild sigmoid colitis Vital Signs Period Temp Pulse Resp BP Sys/Dangelo Pulse Ox Last 24 Hr 97.8 F-98.4 F 64-92 18-20 110-140/55-93 99-100 cor-rrr lungs clear abd soft,nt ext no edema CBC, BMP 12/13/17 06:30 12/13/17 06:30 Microbiology 12/12/17 06:30 Blood - Peripheral Venous Blood Culture - Preliminary NO GROWTH OBTAINED AFTER 24 HOURS, INCUBATION TO CONTINUE FOR 4 DAYS. 12/12/17 06:45 Blood - Peripheral Venous Blood Culture - Preliminary NO GROWTH OBTAINED AFTER 24 HOURS, INCUBATION TO CONTINUE FOR 4 DAYS. 12/07/17 17:00 Blood - Peripheral Venous Blood Culture - Final NO GROWTH AFTER 5 DAYS INCUBATION 12/09/17 16:30 Blood - Peripheral Venous Blood Culture - Preliminary NO GROWTH OBTAINED AFTER 72 HOURS, INCUBATION TO CONTINUE FOR 2 DAYS. 12/09/17 16:30 Blood - Peripheral Venous Blood Culture - Preliminary NO GROWTH OBTAINED AFTER 72 HOURS, INCUBATION TO CONTINUE FOR 2 DAYS. 12/06/17 07:00 Blood - Peripheral Venous Blood Culture - Final NO GROWTH AFTER 5 DAYS INCUBATION 12/07/17 16:30 Blood - Peripheral Venous Blood Culture - Final S Aureus 12/04/17 20:01 Catheter Site Gram Stain - Final 12/04/17 20:01 Catheter Site Wound Culture - Final Escherichia Coli S Aureus Enterococcus Faecalis 12/06/17 07:00 Blood - Peripheral Venous Blood Culture - Final S Aureus 12/07/17 15:00 Stool Clostridium difficile Antigen (JOSE CARLOS) - Final 12/07/17 15:00 Stool Clostridium difficile Toxin Assay - Final 12/06/17 07:00 Serum Legionella Serology - Final 12/04/17 16:35 Blood - Peripheral Venous Blood Culture - Final S Aureus 12/04/17 17:30 Urine - Urine Clean Catch Urine Culture - Final S Aureus 12/04/17 16:35 Blood - Peripheral Venous Blood Culture - Final S Aureus ultrasound + right IJ thrombus Current Medications Acetaminophen (Tylenol -) 650 mg PO Q6H PRN PRN Reason: FEVER Enoxaparin Sodium (Lovenox -) 80 mg SQ BID ODILIA Last Admin: 12/12/17 09:56 Dose: 80 mg Daptomycin 650 mg/ Sodium (Chloride) 50 mls @ 50 mls/hr IVPB DAILY@1800 ODILIA; Protocol Last Admin: 12/12/17 17:07 Dose: 50 mls/hr Ceftaroline Fosamil 600 mg/ (Dextrose) 100 mls @ 100 mls/hr IVPB Q12H ODILIA; Protocol Last Admin: 12/13/17 10:06 Dose: 100 mls/hr a/p catheter related bacteremia-MRSA -permacath has been removed persistent bacteremia- ?secondary to thrombus, ?endocarditis daptomycin and ceftaroline day #6 ANDERS in am transthoracic echo no vegetations Right IJ thrombus- a/c anemia- s/p endoscopy history recent ARF/rhabdomyolysis requiring HD cpk WNL history of legionella- convalescent serology positive Problem List - Problems (1) Sepsis Code(s): A41.9 - SEPSIS, UNSPECIFIED ORGANISM Qualifiers: Sepsis type: sepsis due to unspecified organism Qualified Code(s): A41.9 - Sepsis, unspecified organism (2) Bacteremia associated with intravascular line Code(s): T82.7XXA - INFECT/INFLM REACT D/T OTH CARDI/VASC DEV/IMPLNT/GRFT, INIT ; R78.81 - BACTEREMIA
--- NOTE | 2017-12-13 16:49 | PN ---
Progress Note, Physician Chief Complaint: Cardiology consult No events post EGD Patient appears comfortable. He remains afebrile and denies chest pain, SOB or palpitation. History of Present Illness: 32 year old man with recent history of sepsis 2/2 to legionella pna/ rhabodmyolysis and ARF requiring dialysis via permacath one months ago readmitted 12/04/2017 with fever, nausea, and tenderness at permacath site. Found to have MRSA bacteremia and cath related subclavian vein thrombosis. Echo 12/06/2017: Normal LV size, wall motion and systolic function. Normal RV. Normal LA and RA in size. No significant valvular abnormalities except mild MAC and mild TR. No evidence of vegetation of any valves. - Current Medication List Current Medications: Active Medications Acetaminophen (Tylenol -) 650 mg PO Q6H PRN PRN Reason: FEVER Enoxaparin Sodium (Lovenox -) 80 mg SQ BID ODILIA Last Admin: 12/12/17 09:56 Dose: 80 mg Daptomycin 650 mg/ Sodium (Chloride) 50 mls @ 50 mls/hr IVPB DAILY@1800 ODILIA; Protocol Last Admin: 12/12/17 17:07 Dose: 50 mls/hr Ceftaroline Fosamil 600 mg/ (Dextrose) 100 mls @ 100 mls/hr IVPB Q12H ODILIA; Protocol Last Admin: 12/13/17 10:06 Dose: 100 mls/hr - Objective Vital Signs: Vital Signs Temperature 97.9 F 12/13/17 14:37 Pulse Rate 72 12/13/17 14:37 Respiratory Rate 20 12/13/17 14:37 Blood Pressure 137/82 12/13/17 14:37 O2 Sat by Pulse Oximetry (%) 99 12/13/17 13:46 Constitutional: Yes: Well Nourished, No Distress Eyes: Yes: Conjunctiva Clear, EOM Intact HENT: Yes: Atraumatic, Normocephalic Neck: Yes: Supple, Trachea Midline Cardiovascular: Yes: Regular Rate and Rhythm, S1, S2. No: Bruit, JVD Respiratory: Yes: Regular, CTA Bilaterally Gastrointestinal: Yes: Normal Bowel Sounds Edema: No Labs: CBC, BMP 12/13/17 06:30 12/13/17 06:30 INR, PTT INR 1.28 (0.83-1.09) H 12/13/17 06:30 Problem List - Problems (1) Bacteremia associated with intravascular line Code(s): T82.7XXA - INFECT/INFLM REACT D/T OTH CARDI/VASC DEV/IMPLNT/GRFT, INIT ; R78.81 - BACTEREMIA Assessment/Plan -ANDERS planned tomorrow. Keep NPO after midnight,
--- NOTE | 2017-12-13 18:04 | PN ---
Teaching Attending Note Name of Resident: Barney Justin ATTENDING PHYSICIAN STATEMENT I saw and evaluated the patient. I reviewed the resident's note and discussed the case with the resident. I agree with the resident's findings and plan as documented. SUBJECTIVE: Patient is feeling better with no acute distress, s/p EGD and colonoscopy today. OBJECTIVE: Vital Signs Temperature 97.7 F 12/13/17 16:20 Pulse Rate 108 H 12/13/17 16:20 Respiratory Rate 20 12/13/17 16:20 Blood Pressure 131/77 12/13/17 16:20 O2 Sat by Pulse Oximetry (%) 99 12/13/17 13:46 GENERAL: A&O x 3, NAD HEAD: NC/AT,EYES: PERRLA, EOMI EARS, NOSE, THROAT: Moist mucous membranes. NECK: R neck w/ thickened vessel, non-tender LUNGS: Breath sounds equal, clear to auscultation bilaterally. No wheezes, and no crackles. No accessory muscle use. HEART: Tachycardic, S1S2 positive, no murmur noted. ABDOMEN: Soft, nontender, not distended, normoactive bowel sounds, no guarding, no rebound, no masses. EXTREMITIES: 2+ pulses, warm, well-perfused. No cyanosis. No clubbing. No calf tenderness. No peripheral edema. NEUROLOGICAL: mild Dysarthria ,otherwise no focal deficits. Gait not observed. PSYCHIATRIC: Cooperative. Good eye contact. Appropriate mood and affect. SKIN: Warm, dry, normal turgor, no rashes or lesions noted, normal capillary refill. CBCD WBC 3.9 K/mm3 (4.0-10.0) L 12/13/17 06:30 RBC 2.59 M/mm3 (4.00-5.60) L 12/13/17 06:30 Hgb 7.7 GM/dL (11.7-16.9) L 12/13/17 06:30 Hct 22.3 % (35.4-49) L 12/13/17 06:30 MCV 86.1 fl (80-96) 12/13/17 06:30 MCHC 34.7 g/dl (32.0-35.9) 12/13/17 06:30 RDW 12.9 % (11.9-15.9) 12/13/17 06:30 Plt Count 464 K/MM3 (134-434) H 12/13/17 06:30 MPV 6.3 fl (7.5-11.1) L 12/13/17 06:30 CMP Sodium 145 mmol/L (136-145) 12/13/17 06:30 Potassium 3.4 mmol/L (3.5-5.1) L 12/13/17 06:30 Chloride 109 mmol/L (98-107) H 12/13/17 06:30 Carbon Dioxide 24 mmol/L (21-32) 12/13/17 06:30 Anion Gap 12 MMOL/L (8-16) 12/13/17 06:30 BUN 4 mg/dL (7-18) L 12/13/17 06:30 Creatinine 1.3 mg/dL (0.55-1.3) 12/13/17 06:30 Creat Clearance w eGFR > 60 (>60) 12/13/17 06:30 Random Glucose 84 mg/dL (74-106) 12/13/17 06:30 Calcium 8.5 mg/dL (8.5-10.1) 12/13/17 06:30 Total Bilirubin 0.3 mg/dL (0.2-1.0) 12/13/17 06:30 AST 15 U/L (15-37) 12/13/17 06:30 ALT 31 U/L (13-61) 12/13/17 06:30 Alkaline Phosphatase 79 U/L (45-117) 12/13/17 06:30 Total Protein 6.0 g/dl (6.4-8.2) L 12/13/17 06:30 Albumin 2.5 g/dl (3.4-5.0) L 12/13/17 06:30 CARDIAC ENZYMES Creatine Kinase 25 IU/L (26-308) L 12/11/17 06:45 Troponin I < 0.02 ng/ml (0.00-0.05) D 12/04/17 16:40 Current Medications Generic Name Dose Route Start Last Admin Trade Name Freq PRN Reason Stop Dose Admin Acetaminophen 650 mg 12/05/17 11:53 Tylenol - PO Q6H PRN FEVER Enoxaparin Sodium 80 mg 12/10/17 22:00 12/12/17 09:56 Lovenox - SQ 80 mg BID ODILIA Administration Daptomycin 650 mg/ Sodium 50 mls @ 50 mls/hr 12/08/17 18:00 12/12/17 17:07 Chloride IVPB 50 mls/hr DAILY@1800 ODILIA Administration Protocol Ceftaroline Fosamil 600 mg/ 100 mls @ 100 mls/hr 12/10/17 22:00 12/13/17 10: 06 Dextrose IVPB 100 mls/hr Q12H ODILIA Administration Protocol Home Medications Medication Instructions Recorded Ergocalciferol (Vitamin D2) 50,000 unit PO WEEKLY 12/04/17 [Drisdol] Hydrocortisone 2.5% Topical Cr 1 applic RC BID 12/04/17 [Anusol 2.5% Hc Cream -] Torsemide [Demadex] 80 mg PO DAILY 12/04/17 ASSESSMENT AND PLAN: Patient is a 32 y/o man with h/o recent admission to [facility] for sepsis /leginella PNA, SALBADOR, Rhabdo, and demand ischemia who was started on HD and was sent to rehab. he comes back with fever and Right sided neck pain. Patient does not need HD since improved his Kidney function. # R internal Jugular vein thrombosis. On Lovenox 80mg BID continue , H/H is stable 8.5 today , discussed with Gi , agrees to continue AC for an extensive Jugular vein thrombosis; ( was on hold before due to gi bleed,) will continue to monitor h/h, repeat US decreased the size of thrombose. # s/p sepsis due to MRSA bacteremia due to infected HD catheter: s/p removal of the permacath, On IV daptomycin and ceftaroline continue. s/p IV Vancomycin, ID on the case. No further growth. No fever today. # MRSA Bacteremia , repeat blood culture is negative. continue IV daptomycin and ceftaroline on.Echo is negative for vegetation, ANDERS in am for possible endocarditis Wednesday. # Acute blood loss with Anemia as per Hematology is chronic in nature ,and is suggested to get Blood transfusion one unit prior to EGD/colonoscopy by Hematology for EGD/Colonoscopy on Wednesday # h/o recent SALBADOR due to rabdo: renal function recovered and does not need HD again # Recent legionella PNA and sepsis. history of legionella- convalescent serology positive; was here 11/01 to 11/15 EGD/Colonoscopy negative ANDERS in am On Lovenox 80mg sq Bid for RIJ extensive thrombose monitor H/H
[2017-12-13] MEDS: DAPTOMYCIN 650 MG in SODIUM CHLORIDE 50 ML IVPB SCH (18:11)
[2017-12-13] MEDS ORDERED: PT OWN MED DRAWER 7, Y5N ONE (21:17)
[2017-12-13] MEDS: ENOXAPARIN NA (PORCINE) 80 MG/0.8 ML DISP.SYRIN SQ SCH (21:54)
[2017-12-14 06:50] LABS: HEMATOCRIT 23.2 % (35.4-49); HEMOGLOBIN 7.8 GM/dL (11.7-16.9); MCH 29.1 pg (25.7-33.7); MCHC 33.7 g/dl (32.0-35.9); MEAN CELL VOLUME 86.4 fl (80-96); MEAN PLT VOLUME 5.9 fl (7.5-11.1); PLATELET COUNT 482 K/MM3 (134-434); RBC 2.68 M/mm3 (4.00-5.60); RDW 13.3 % (11.9-15.9); WHITE BLOOD COUNT 4.4 K/mm3 (4.0-10.0)
[2017-12-14 07:10] LABS: ANION GAP 8 MMOL/L (8-16); BLOOD UREA NITROGEN 6 mg/dL (7-18); CALCIUM 8.4 mg/dL (8.5-10.1); CHLORIDE 109 mmol/L (98-107); CO2 26 mmol/L (21-32); CREATININE 1.4 mg/dL (0.55-1.3); GLUCOSE,RANDOM 82 mg/dL (74-106); MAGNESIUM 1.6 mg/dL (1.8-2.4); PHOSPHOROUS 4.1 mg/dL (2.5-4.9); POTASSIUM 3.5 mmol/L (3.5-5.1); SODIUM 143 mmol/L (136-145)
--- NOTE | 2017-12-14 08:31 | PN ---
Teaching Attending Note Name of Resident: Barney Justin ATTENDING PHYSICIAN STATEMENT I saw and evaluated the patient. I reviewed the resident's note and discussed the case with the resident. I agree with the resident's findings and plan as documented. SUBJECTIVE: Patient is comfortable with no acute distress, going for ANDERS. OBJECTIVE: Vital Signs Temperature 98 F 12/14/17 05:38 Pulse Rate 84 12/14/17 05:38 Respiratory Rate 20 12/14/17 05:38 Blood Pressure 128/88 12/14/17 05:38 O2 Sat by Pulse Oximetry (%) 99 12/13/17 13:46 GENERAL: A&O x 3, NAD HEAD: NC/AT ,EYES: PERRLA, EOMI EARS, NOSE, THROAT: Moist mucous membranes. NECK: R neck w/ thickened vessel, non-tender LUNGS: Breath sounds equal, clear to auscultation bilaterally. No wheezes, and no crackles. No accessory muscle use. HEART: RRR, no murmur , S1S2 positive , ABDOMEN: Soft, nontender, not distended, normoactive bowel sounds, no guarding, no rebound, no masses. EXTREMITIES: 2+ pulses, warm, well-perfused. No cyanosis. No clubbing. NEUROLOGICAL: mild Dysarthria ,otherwise no focal deficits. PSYCHIATRIC: Cooperative. Appropriate mood and affect. SKIN: Warm, dry, normal turgor, no rashes or lesions noted. CBCD WBC 4.4 K/mm3 (4.0-10.0) 12/14/17 06:30 RBC 2.68 M/mm3 (4.00-5.60) L 12/14/17 06:30 Hgb 7.8 GM/dL (11.7-16.9) L 12/14/17 06:30 Hct 23.2 % (35.4-49) L 12/14/17 06:30 MCV 86.4 fl (80-96) 12/14/17 06:30 MCHC 33.7 g/dl (32.0-35.9) 12/14/17 06:30 RDW 13.3 % (11.9-15.9) 12/14/17 06:30 Plt Count 482 K/MM3 (134-434) H 12/14/17 06:30 MPV 5.9 fl (7.5-11.1) L 12/14/17 06:30 CMP Sodium 143 mmol/L (136-145) 12/14/17 06:30 Potassium 3.5 mmol/L (3.5-5.1) 12/14/17 06:30 Chloride 109 mmol/L (98-107) H 12/14/17 06:30 Carbon Dioxide 26 mmol/L (21-32) 12/14/17 06:30 Anion Gap 8 MMOL/L (8-16) 12/14/17 06:30 BUN 6 mg/dL (7-18) L 12/14/17 06:30 Creatinine 1.4 mg/dL (0.55-1.3) H 12/14/17 06:30 Creat Clearance w eGFR 59.11 (>60) 12/14/17 06:30 Random Glucose 82 mg/dL (74-106) 12/14/17 06:30 Calcium 8.4 mg/dL (8.5-10.1) L 12/14/17 06:30 Total Bilirubin 0.3 mg/dL (0.2-1.0) 12/13/17 06:30 AST 15 U/L (15-37) 12/13/17 06:30 ALT 31 U/L (13-61) 12/13/17 06:30 Alkaline Phosphatase 79 U/L (45-117) 12/13/17 06:30 Total Protein 6.0 g/dl (6.4-8.2) L 12/13/17 06:30 Albumin 2.5 g/dl (3.4-5.0) L 12/13/17 06:30 CARDIAC ENZYMES Creatine Kinase 25 IU/L (26-308) L 12/11/17 06:45 Troponin I < 0.02 ng/ml (0.00-0.05) D 12/04/17 16:40 Current Medications Generic Name Dose Route Start Last Admin Trade Name Freq PRN Reason Stop Dose Admin Acetaminophen 650 mg 12/05/17 11:53 Tylenol - PO Q6H PRN FEVER Enoxaparin Sodium 80 mg 12/10/17 22:00 12/13/17 21:54 Lovenox - SQ 80 mg BID ODILIA Administration Daptomycin 650 mg/ Sodium 50 mls @ 50 mls/hr 12/08/17 18:00 12/13/17 18:11 Chloride IVPB 50 mls/hr DAILY@1800 [facility] Administration Protocol Ceftaroline Fosamil 600 mg/ 100 mls @ 100 mls/hr 12/10/17 22:00 12/13/17 21: 54 Dextrose IVPB 100 mls/hr Q12H [facility] Administration Protocol Home Medications Medication Instructions Recorded Ergocalciferol (Vitamin D2) 50,000 unit PO WEEKLY 12/04/17 [Drisdol] Hydrocortisone 2.5% Topical Cr 1 applic RC BID 12/04/17 [Anusol 2.5% Hc Cream -] Torsemide [Demadex] 80 mg PO DAILY 12/04/17 ASSESSMENT AND PLAN: Patient is a 32 y/o man with h/o recent admission to [facility] for sepsis /leginella PNA, SALBADOR, Rhabdo, and demand ischemia who was started on HD and was sent to rehab. he comes back with fever and Right sided neck pain. Patient does not need HD since improved his Kidney function. # R internal Jugular vein thrombosis. On Lovenox 80mg BID continue , HR improved , H/H is stable 7.8 today , discussed with Gi , agrees to continue AC for an extensive Jugular vein thrombosis; ( was on hold before due to gi bleed, ) will continue to monitor h/h, US of the neck , decreased thrombose size. # s/p sepsis due to MRSA bacteremia due to infected HD catheter: s/p removal of the permacath, continue IV daptomycin and ceftaroline. ANDERS is negative, as per ID ok to discharge the patient on Dapto.IV, patient is getting [place] catheter for IV antibiotic. # MRSA Bacteremia : On IV dapto continue , ANDERS is negative , getting [place] catheter, for 21 more days of IV antibiotic. # h/o recent SALBADOR due to rabdo: renal function recovered and does not need HD again # s/p Rectal bleed. rectal exam with internal hemorrhoids. suspect hemorrhoidal bleed . # Recent legionella PNA and sepsis. history of legionella- convalescent serology positive; was here 11/01 to 11/15 DVT Px: On Lovenox 80mg sq Bid for RIJ extensive thrombose
[2017-12-14] MEDS: CEFTAROLINE FOSAMIL ACETATE 600 MG in DEXTROSE 5%-WATER - 100 ML IVPB SCH (09:32)
[2017-12-14] MEDS: ENOXAPARIN NA (PORCINE) 80 MG/0.8 ML DISP.SYRIN SQ SCH (09:32)
[2017-12-14] MEDS ORDERED: LIDOCAINE VISCOUS 2% ORAL/TOP 20 ML UNIT-DOSE CUP ONE (12:01)
[2017-12-14] MEDS ORDERED: ENOXAPARIN NA (PORCINE) 120 MG/0.8 ML DISP.SYRIN SQ SCH (14:30)
[2017-12-14] MEDS ORDERED: ENOXAPARIN NA (PORCINE) 120 MG/0.8 ML DISP.SYRIN SQ ONE (14:30)
[2017-12-14] MEDS ORDERED: MAGNESIUM SULF 50% (8.12 MEQ/2 ML-1 GM VIAL) IVPB ONE (14:31)
--- NOTE | 2017-12-14 14:35 | PN ---
Progress Note (short form) - Note Progress Note: Renal follow up for SALBADOR Pt seen and examined at the bedside no acute complaints s/p ANDERS that was negative for discharge home today Vital Signs Temperature 97.4 F L 12/14/17 13:31 Pulse Rate 75 12/14/17 13:31 Respiratory Rate 18 12/14/17 13:31 Blood Pressure 116/75 12/14/17 13:31 O2 Sat by Pulse Oximetry (%) 98 12/14/17 13:31 Intake & Output 12/11/17 12/12/17 12/13/17 12/14/17 23:59 23:59 23:59 23:59 Intake Total 300 350 940 350 Output Total 400 0 Balance 300 -50 940 350 Weight 87 kg NAD RRR, No M/R CTA, no rales or wheeze soft NT/ND No LE edema CBC, BMP 12/14/17 06:30 12/14/17 06:30 Current Medications Acetaminophen (Tylenol -) 650 mg PO Q6H PRN PRN Reason: FEVER Enoxaparin Sodium (Lovenox -) 80 mg SQ BID ODILIA Last Admin: 12/14/17 09:32 Dose: Not Given Enoxaparin Sodium (Lovenox -) 120 mg SQ ONCE ODILIA Daptomycin 650 mg/ Sodium (Chloride) 50 mls @ 50 mls/hr IVPB DAILY@1800 ODILIA; Protocol Last Admin: 12/13/17 18:11 Dose: 50 mls/hr Ceftaroline Fosamil 600 mg/ (Dextrose) 100 mls @ 100 mls/hr IVPB Q12H ODILIA; Protocol Last Admin: 12/14/17 09:32 Dose: 100 mls/hr Magnesium Sulfate (Magnesium Sulfate) 2 gm IVPB ONCE ONE Stop: 12/14/17 14:32 32 year old AA gentleman with Hx of Salbador requring dialysis from Rhabdomyolysis + Legionella now with catheter related bacteremia. #Acute Renal failure now improved #MRSA bacteremia #Iatrogenic subclavian vein thrombosis #Aneima/GIB #Hyperphosphatemia Renal function improved and stable advised to maintain good oral intake at home avoid nsaids for the time being Abx as per ID Consider oral iron as outpatient as pt remains anemic Rojas Edmondson DO
--- NOTE | 2017-12-14 15:19 | DS ---
Physical Exam: SUBJECTIVE: Patient seen and examined at bedside. Comfortable, no complaints. OBJECTIVE: Vital Signs Period Temp Pulse Resp BP Sys/Dangelo Pulse Ox Last 24 Hr 97.4 F-98.1 F 62-108 18-20 116-132/68-88 98-100 PHYSICAL EXAM GENERAL: A&O x 3, NAD HEAD: NC/AT EYES: PERRLA, EOMI EARS, NOSE, THROAT: Moist mucous membranes. NECK: R neck w/ thickened vessel, non-tender LUNGS: Breath sounds equal, clear to auscultation bilaterally. No wheezes, and no crackles. No accessory muscle use. HEART: Tachycardic, no m/r/g ABDOMEN: Soft, nontender, not distended, normoactive bowel sounds, no guarding, no rebound, no masses. No hepatomegaly or splenomegaly. EXTREMITIES: No stigmata of endocarditis. 2+ pulses, warm, well-perfused. No cyanosis. No clubbing. No calf tenderness. No peripheral edema. NEUROLOGICAL: Dysarthria vs. speech impediment, otherwise no focal deficits. Gait not observed. PSYCHIATRIC: Cooperative. Good eye contact. Appropriate mood and affect. SKIN: Warm, dry, normal turgor, no rashes or lesions noted, normal capillary refill. LABS Laboratory Results - last 24 hr 12/14/17 12/14/17 06:30 06:30 WBC 4.4 RBC 2.68 L Hgb 7.8 L Hct 23.2 L MCV 86.4 MCH 29.1 MCHC 33.7 RDW 13.3 Plt Count 482 H MPV 5.9 L Sodium 143 Potassium 3.5 Chloride 109 H Carbon Dioxide 26 Anion Gap 8 BUN 6 L Creatinine 1.4 H Creat Clearance w eGFR 59.11 Random Glucose 82 Calcium 8.4 L Phosphorus 4.1 Magnesium 1.6 L HOSPITAL COURSE: Date of Admission:12/04/17 Pt is a 32 y/o M previously w/ no sig PMHx until 1 month [employer] when hospitalized for sepsis 2/2 legionella PNA, rhabdomyolysis, and ARF, underwent ICU care, had permacath placed, and d/c'd to [facility] for acute rehab including hemodialysis. Presented from [facility] with fever, nausea, and tenderness at permacath site. On presentation, T 104.8, HR 133, BP stable, WBC 11.6, Lactate wnl. Admitted for sepsis 2/2 permacath infection. BCx, UCx, Catheter Tip culture sent, all resulted positive for MRSA. ID, cardiology, vascular surgery, nephrology consulted. Nephrology evaluation deemed ARF resolved w/o . Initially treated with empiric Vancomycin/Zosyn empirically, then Vancomycin monotherapy following culture results. 2nd and 3rd serial BCx still positive for MRSA bacteremia, ABx switched to Daptomycin/Ceftaroline. TTE ordered on admission and was negative for endocarditis. Thickened and tender right IJV observed on admission, duplex demonstrated extensive thrombosis. Patient was placed on Lovenox, however, Hb dropped precipitously to borderline of requiring transfusion (Pt was mildly anemic on admission). Hb stabilized at that point and Pt did not require transfusion during hospitalization. GI and Hematology were then consulted. EGD and colonoscopy were significant only for erythematous sigmoid colitis and no bleeding. ANDERS was performed d/t ongoing bacteremia and was negative for endocarditis. 4th and 5th serial BCx were negative. Repeat neck duplex 1 week after first re-identified thrombosis but noted reduction in size. Pt had tunneled catheter placed and was discharged home for 21 days further Daptomycin, weekly labs (CBC/diff, CMP, Mg/Phos, CPK, PT/INR, PTT), and 1 month Lovenox. Outpatient followup arranged with primary care, GI, hematology , and nephrology. Date of Discharge: 12/14/17 Minutes to complete discharge: 40 Discharge Summary Reason For Visit: SEPSIS Current Active Problems Bacteremia associated with intravascular line (Acute) Normocytic anemia (Acute) Sepsis (Acute) Condition: Improved - Instructions Diet, Activity, Other Instructions: You were hospitalized due to an infection of the catheter in your chest which spread to your blood. You were evaluated to see whether the infection had spread to your heart and it was determined that it had not. You were noted to have a blood clot in a large vein in your neck . You were also noted to be anemic and were evaluated for GI bleeding, which you do not have. You were treated with IV antibiotics and fluids, and had a new catheter placed for you to continue IV antibiotics for 21 days after discharge. Called Daptomycin. Referrals The following referrals have been made on your behalf. Please keep all of these appointments: Dr. Cummings, primary care, [address] Mora, gastroenterology, [address] Lynne, hematology, [address] Edmondson, nephrology, 4 weeks after discharge Medications/medical recommendations You will require 21 days of an IV antibiotic, daptomycin, through the catheter. A nurse will come to your home to dispense this medication. You will also require 1 month of Lovenox, a blood thinner, to take by injection to treat the clot in your neck. Prescriptions for these medications have been provided. You will also require weekly lab tests which your primary care doctor will manage. The prescription for your first set of labs has been provided. You no longer require torsemide and should not take it any longer. Weekly labs will be: CBC with differential, CMP, mag, phos. levels, PT/INR. also repeat the US of your neck on the right side to check whether there is a need to continue your anticoagulation. If you experience any new fever, chills, pain/warmth/redness at the site of the new catheter, blood in your stool, respiratory distress, or any other new symptoms, please return to the Emergency Department immediately. Referrals: [facility] [Provider Group] - 12/16/17 (make appointment with Dr. Cummings for afternoon 1pm-4pm [phone]) Lenin Mora MD [Staff Physician] - 1 Week Juan Lynne MD [Staff Physician] - 2 Weeks Rojas Edmondson MD [Staff Physician] - 1 Month Disposition: HOME - Home Medications Comprehensive Discharge Medication List: Ambulatory Orders Daptomycin 500 mg IV DAILY 21 Days #28 vial 12/14/17 Enoxaparin Sodium [Lovenox] 120 mg SQ DAILY #30 syringe 12/14/17 Miscellaneous Drug Not In Syst [Outpatient Lab Test] 1 each ASDIR #1 misc This patient is new to me today: No Emergency Visit: No Critical Care patient: No - Discharge Referral Referred to [facility] No
--- NOTE | 2017-12-14 16:11 | PN ---
Progress Note (short form) - Note Progress Note: Was alerted by IR that there may be a possible pseudoanerysm in the right carotid. Ordered a carotid Doppler per the recommendation of Dr. Holt. This was discussed with primary team and Dr. Ariana Vallecillo. Rojas Edmondson DO
[2017-12-14] MEDS: DAPTOMYCIN 650 MG in SODIUM CHLORIDE 50 ML IVPB SCH (17:08)
--- NOTE | 2017-12-14 17:09 | ECHO ---
Name: CROCKWELL, ENEIDA Exam:Transesophageal Echocardiogram Study Date: 12/14/2017 11:19 AM Age: 32 yrs Reason For Study: r/o endo Height: 74 in Weight: 191 lb BSA: 2.1 m2 Procedure: A 2D transesophageal echocardiogram with Doppler and color flow Doppler was performed. Informed conse nt for Transesophageal Echocardiogram, and use of a contrast agent as needed, was obtained prior to the proc edure. The patient was brought to the endoscopy suite in a fasting state. An intravenous line was placed. A topical anesthetic agent was used for oropharangeal anesthesia. A bite block was inserted. IV concious sedati on was administered using propafol. The transesophageal probe was passed without difficulty. The usual views were obtained; basal, mid-esophageal, transgastric and aortic views. The patient's vital signs, including blood pressure, heart rate, pulse oximetry and cardiac rhythm were monitored throughout the procedure and r emained stable. The patient tolerated the procedure well without evidence of orophangeal or esophageal trauma . Contrast injection with agitated saline was performed. There were no complications. The patient was i n normal sinus rhythm during the exam. Left Ventricle The left ventricle is grossly normal size. Left ventricular systolic function is grossly normal. Right Ventricle The right ventricle is grossly normal size. The right ventricular systolic function is grossly normal . Atria No left atrial or left atrial appendage thrombus. The left atrial appendage velocity is normal. Color flow doppler and agitated saline injection demonstrates no evidence of a patent foramen ovale. Mitral Valve The mitral valve is normal. There is no vegetation seen on the mitral valve. There is trace mitral regurgitation. Tricuspid Valve The tricuspid valve is normal. There is no tricuspid valve vegetation. There is mild tricuspid regurg itation. Aortic Valve Normal trileaflet aortic valve. There is no aortic valvular vegetation. No aortic regurgitation is pr esent. Pulmonic Valve The pulmonic valve is not well seen, but is grossly normal. There is no vegetation on the pulmonic va lve. Trace pulmonic valvular regurgitation. Great Vessels Normal ascending aorta, aortic arch, and proximal descending aorta. Pericardium/Pluera There is no pericardial effusion. Interpretation Summary Left ventricular systolic function is grossly normal. The right ventricular systolic function is grossly normal. No left atrial or left atrial appendage thrombus. The left atrial appendage velocity is normal. Color flow doppler and agitated saline injection demonstrates no evidence of a patent foramen ovale. The mitral valve is normal. There is no vegetation seen on the mitral valve. There is trace mitral regurgitation. The tricuspid valve is normal. There is no tricuspid valve vegetation. There is mild tricuspid regurgitation. Normal trileaflet aortic valve. There is no aortic valvular vegetation. No aortic regurgitation is present. The pulmonic valve is not well seen, but is grossly normal. There is no vegetation on the pulmonic valve. Trace pulmonic valvular regurgitation. Normal ascending aorta, aortic arch, and proximal descending aorta. MD Frank Mendiola 12/14/2017 05:08 PM
--- NOTE | 2017-12-14 17:10 | PN ---
Progress Note (short form) - Note Progress Note: ANDERS was done today. Full report entered. Pt tolerated the procedure well without complications. There is no evidence of endocarditis.
--- NOTE | 2017-12-14 17:15 | PATH ---
Surgical Pathology Report Patient Name: ENEIDA CUMMINS [facility]. Rec. #: [id number] /Age/Gender: 1985 (Age: 32) / M Account: [id number] Location: [facility] MED/SURG Taken: 12/13/2017 Received: 12/13/2017 Reported: 12/14/2017 Physicians: Lenin Mora M.D. Hector Rizzo M.D. Specimen(s) Received A: BX 2ND PORTION DUODENUM B: BX ANTRUM AND BODY C: BX TERMINAL ILEUM D: ASCENDING COLON E: BX TRANSVERSE COLON F: BX DESCENDING COLON G: BX SIGMOID H: BX RECTUM Clinical History Anemia Postoperative diagnosis: Anemia, colitis Final Diagnosis A. SECOND PORTION DUODENUM, BIOPSY: DUODENAL MUCOSA WITH NO DIAGNOSTIC ABNORMALITIES. NO EVIDENCE OF CELIAC DISEASE. B. ANTRUM AND BODY, BIOPSY: GASTRIC MUCOSA WITH FOCAL MILD CHRONIC GASTRITIS. IMMUNOSTAIN IS NEGATIVE FOR H. PYLORI ORGANISMS. C. TERMINAL ILEUM, BIOPSY: TERMINAL ILEAL MUCOSA WITH NO DIAGNOSTIC ABNORMALITIES. D. ASCENDING COLON, BIOPSY: COLONIC MUCOSA SHOWING INCREASED CHRONIC INFLAMMATORY INFILTRATE AND REACTIVE LYMPHOID AGGREGATE IN THE LAMINA PROPRIA. E. TRANSVERSE COLON, BIOPSY: COLONIC MUCOSA SHOWING INCREASED CHRONIC INFLAMMATORY INFILTRATE IN THE LAMINA PROPRIA. FOCAL CRYPT ARCHITECTURAL DISTORTION PRESENT. F. DESCENDING COLON, BIOPSY: COLONIC MUCOSA SHOWING INCREASED CHRONIC INFLAMMATORY INFILTRATE IN THE LAMINA PROPRIA. FOCAL CRYPT ARCHITECTURAL DISTORTION PRESENT. G. SIGMOID, BIOPSY: COLONIC MUCOSA SHOWING INCREASED EOSINOPHILS (>40/HPF) AND CHRONIC INFLAMMATORY INFILTRATE IN THE LAMINA PROPRIA. FOCAL CRYPT ARCHITECTURAL DISTORTION PRESENT. H. RECTUM, BIOPSY: COLONIC MUCOSA WITH PRESERVED CRYPTS AND MILD INCREASED CHRONIC INFLAMMATPRY INFILTRATE IN THE LAMINA PROPRIA. COMMENT: NEGATIVE FOR DYSPLASIA. NO GRANULOMATOUS INFLAMMATION, PARASITES, OR VIRAL INCLUSIONS SEEN. THE INCREASED EOSINOPHILIC INFILTRATE IN THE SIGMOID RAISES THE POSSIBILITY OF EOSINOPHILIC COLITIS. THE DIFFERENTIAL DIAGNOSIS INCLUDES CHRONIC ENTERIC INFECTIONS, DRUG REACTIONS, PARASITIC INFECTIONS, AND OTHER SYSTEMIC DISEASES. SUGGEST CORRELATE CLINICALLY. Electronically Signed Kaitlyn Alejandro M.D. Gross Description A. Received in formalin, labeled "biopsy second portion of duodenum" is a koenig, irregular portion of soft tissue measuring 0.4 cm. in greatest dimension. The specimen is submitted in toto in one cassette. B. Received in formalin, labeled "biopsy antrum and body" are 2 koenig, irregular portions of soft tissue measuring 0.3 and 0.5 cm. in greatest dimension. The specimens are submitted in toto in one cassette. C. Received in formalin, labeled "biopsy terminal ileum" are 2 koenig, irregular portions of soft tissue measuring 0.4 and 0.5 cm. in greatest dimension. The specimens are submitted in toto in one cassette. D. Received in formalin, labeled "biopsy ascending colon" are 2 koenig, irregular portions of soft tissue averaging 0.6 cm. in greatest dimension. The specimens are submitted in toto in one cassette. E. Received in formalin, labeled "biopsy transverse colon" are 2 koenig, irregular portions of soft tissue measuring 0.3 and 0.5 cm. in greatest dimension. The specimens are submitted in toto in one cassette. F. Received in formalin, labeled "biopsy descending colon" are 3 koenig, irregular portions of soft tissue ranging from 0.2-0.7 cm. in greatest dimension. The specimens are submitted in toto in one cassette. G. Received in formalin, labeled "biopsy sigmoid" are 4 koenig, irregular portions of soft tissue ranging from 0.4-0.7 cm. in greatest dimension. The specimens are submitted in toto in one cassette. H. Received in formalin, labeled "biopsy rectum" are 5 koenig, irregular portions of soft tissue ranging from 0.2-0.3 cm. in greatest dimension. The specimens are submitted in toto in one cassette 12/13/2017 [facility]12/13/2017
[2017-12-14 17:16] VITALS: BP 139/88; PULSE 81; TEMP 97.9
--- NOTE | 2017-12-14 18:40 | PN ---
Progress Note (short form) - Note Progress Note: no complaints s/p endoscopy, mild sigmoid colitis s/p ANDERS negative feels well Vital Signs Period Temp Pulse Resp BP Sys/Dangelo Pulse Ox Last 24 Hr 97.4 F-98.1 F 62-92 18-20 116-139/68-88 98-100 cor-rrr lungs clear abd soft,nt ext no edema CBC, BMP 12/14/17 06:30 12/14/17 06:30 ultrasound + right IJ thrombus Current Medications Acetaminophen (Tylenol -) 650 mg PO Q6H PRN PRN Reason: FEVER Enoxaparin Sodium (Lovenox -) 80 mg SQ BID ODILIA Last Admin: 12/12/17 09:56 Dose: 80 mg Daptomycin 650 mg/ Sodium (Chloride) 50 mls @ 50 mls/hr IVPB DAILY@1800 ODILIA; Protocol Last Admin: 12/12/17 17:07 Dose: 50 mls/hr Ceftaroline Fosamil 600 mg/ (Dextrose) 100 mls @ 100 mls/hr IVPB Q12H ODILIA; Protocol Last Admin: 12/13/17 10:06 Dose: 100 mls/hr Microbiology 12/09/17 16:30 Blood - Peripheral Venous Blood Culture - Final NO GROWTH AFTER 5 DAYS INCUBATION 12/09/17 16:30 Blood - Peripheral Venous Blood Culture - Final NO GROWTH AFTER 5 DAYS INCUBATION 12/12/17 06:30 Blood - Peripheral Venous Blood Culture - Preliminary NO GROWTH OBTAINED AFTER 48 HOURS, INCUBATION TO CONTINUE FOR 3 DAYS. 12/12/17 06:45 Blood - Peripheral Venous Blood Culture - Preliminary NO GROWTH OBTAINED AFTER 48 HOURS, INCUBATION TO CONTINUE FOR 3 DAYS. 12/07/17 17:00 Blood - Peripheral Venous Blood Culture - Final NO GROWTH AFTER 5 DAYS INCUBATION 12/06/17 07:00 Blood - Peripheral Venous Blood Culture - Final NO GROWTH AFTER 5 DAYS INCUBATION 12/07/17 16:30 Blood - Peripheral Venous Blood Culture - Final Mr S Aureus 12/04/17 20:01 Catheter Site Gram Stain - Final 12/04/17 20:01 Catheter Site Wound Culture - Final Escherichia Coli Mr S Aureus Enterococcus Faecalis 12/06/17 07:00 Blood - Peripheral Venous Blood Culture - Final Mr S Aureus 12/07/17 15:00 Stool Clostridium difficile Antigen (JOSE CARLOS) - Final 12/07/17 15:00 Stool Clostridium difficile Toxin Assay - Final 12/06/17 07:00 Serum Legionella Serology - Final 12/04/17 16:35 Blood - Peripheral Venous Blood Culture - Final S Aureus 12/04/17 17:30 Urine - Urine Clean Catch Urine Culture - Final S Aureus 12/04/17 16:35 Blood - Peripheral Venous Blood Culture - Final S Aureus a/p catheter related bacteremia-MRSA -permacath has been removed bacteremia resolved daptomycin and ceftaroline day #7 ANDERS negative d/w dr porras- plan 4 weeks daptomycin alone 3 more weeks he can f/u in our office with Dr Paniagua weekly labs to include cbc, cmp, CPK while on the daptomycin Right IJ thrombus- a/c per hematology anemia- s/p endoscopy history recent ARF/rhabdomyolysis requiring HD cpk WNL history of legionella- convalescent serology positive Problem List - Problems (1) Sepsis Code(s): A41.9 - SEPSIS, UNSPECIFIED ORGANISM Qualifiers: Sepsis type: sepsis due to unspecified organism Qualified Code(s): A41.9 - Sepsis, unspecified organism (2) Bacteremia associated with intravascular line Code(s): T82.7XXA - INFECT/INFLM REACT D/T OTH CARDI/VASC DEV/IMPLNT/GRFT, INIT ; R78.81 - BACTEREMIA
== END 2017-12-14 20:00 | disposition home or self-care (01) | DRG 721 ==
LOC: JER 16:09 → JERBED 18:25 → J8W 21:29
PROVIDERS: ADMIT Internal Medicine; ATTEND Internal Medicine
PROC: 0DD68ZX Extraction of Stomach, Via Natural or Artificial Opening Endoscopic, Diagnostic (ICD-10-PCS; 2017-12-13)
PROC: 0DDN8ZX Extraction of Sigmoid Colon, Via Natural or Artificial Opening Endoscopic, Diagnostic (ICD-10-PCS; 2017-12-13)
PROC: B548ZZA Ultrasonography of Superior Vena Cava, Guidance (ICD-10-PCS; 2017-12-14)
PROC: B246ZZ4 Ultrasonography of Right and Left Heart, Transesophageal (ICD-10-PCS; 2017-12-14)
PROC: 02HV33Z Insertion of Infusion Device into Superior Vena Cava, Percutaneous Approach (ICD-10-PCS; principal; 2017-12-14 11:45)
DX: T80.211A Bloodstream infection due to central venous catheter, initial encounter (principal); A41.02 Sepsis due to Methicillin resistant Staphylococcus aureus; Y83.8 Other surgical procedures as the cause of abnormal reaction of the patient, or of later complication, without mention of misadventure at the time of the procedure; N17.9 Acute kidney failure, unspecified; K92.2 Gastrointestinal hemorrhage, unspecified; D62 Acute posthemorrhagic anemia; I82.C11 Acute embolism and thrombosis of right internal jugular vein; K52.9 Noninfective gastroenteritis and colitis, unspecified; R11.0 Nausea; E83.39 Other disorders of phosphorus metabolism; K64.8 Other hemorrhoids; E87.6 Hypokalemia; E83.42 Hypomagnesemia
CPT/HCPCS: 36415; 36569; 71045-TC-FY; 77001-TC-FY; 80048; 80053; 81003; 82247; 82248; 82272; 82550; 82728; 82803; 83010; 83540; 83550; 83605; 83615; 83735; 84100; 84484; 85025; 85027; 85044; 85610; 85730; 86140; 86713; 86850; 86880; 86900; 86901; 86922; 87040; 87070; 87086; 87186; 87205; 87324; 87449; 88305-TC; 93005; 93010; 93306-TC; 93312; 93325; 93880-TC; 93971; 97116-GP; 97161-GP; 99285-25; C1751; G0480; J0131; J0878; J1644; J7030

== ENCOUNTER 2017-12-21 15:57 | Emergency (ER) | payer OTHER ==
[2017-12-21 16:46] VITALS: BP 122/73; PULSE 99; TEMP 99.3; BMI 25.0
--- NOTE | 2017-12-21 16:46 | PDOC ---
Rapid Medical Evaluation Time Seen by Provider: 12/21/17 16:38 Medical Evaluation: Allergies Allergy/AdvReac Type Severity Reaction Status Date / Time No Known Allergies Allergy Verified 12/21/17 16:38 12/21/17 16:41 Pt presents for issues with his PICC line. States that there is itching and pain around the site. Also has bleeding at the site. Also complaining of chest pain, joint pains and muscles pains Exam: Wheels to the R inner arm. Picc line in place. NAD Orders: Labs, IV insert EKG Pt to proceed to ED for further evaluation Discharge Disposition - Diagnosis Bleeding from PICC line - Referrals - Patient Instructions - Post Discharge Activity
[2017-12-21 17:42] LABS: BASO % 0.8 % (0-2.0); EOS % 6.4 % (0-4.5); HEMATOCRIT 26.5 % (35.4-49); HEMOGLOBIN 8.8 GM/dL (11.7-16.9); LYMPH % 38.8 % (8-40); MCH 29.6 pg (25.7-33.7); MEAN CELL VOLUME 89.6 fl (80-96); MEAN PLT VOLUME 6.4 fl (7.5-11.1); MONO % 6.4 % (3.8-10.2); NEUT % 47.6 % (42.8-82.8); PLATELET COUNT 508 K/MM3 (134-434); RBC 2.96 M/mm3 (4.00-5.60); RDW 14.9 % (11.9-15.9); WHITE BLOOD COUNT 6.2 K/mm3 (4.0-10.0)
[2017-12-21 17:55] LABS: INR 1.12 (0.83-1.09); PROTHROMBIN TIME (PATIENT) 12.7 SEC (9.7-13.0)
[2017-12-21 18:15] LABS: ALBUMIN 2.9 g/dl (3.4-5.0); ALK PHOS 112 U/L (45-117); ANION GAP 10 MMOL/L (8-16); BILIRUBIN,TOTAL 0.2 mg/dL (0.2-1); BLOOD UREA NITROGEN 8 mg/dL (7-18); CALCIUM 8.8 mg/dL (8.5-10.1); CHLORIDE 111 mmol/L (98-107); CO2 24 mmol/L (21-32); CREATININE 1.2 mg/dL (0.55-1.3); GLUCOSE,RANDOM 85 mg/dL (74-106); POTASSIUM 3.8 mmol/L (3.5-5.1); SGOT/AST 111 U/L (15-37); SGPT/ALT 55 U/L (13-61); SODIUM 145 mmol/L (136-145); TOT PROT 6.7 g/dl (6.4-8.2)
[2017-12-21 18:16] LABS: URINE APPEARANCE CLEAR; URINE BILIRUBIN NEGATIVE (<2.0 mg/dL); URINE COLOR STRAW; URINE GLUCOSE (UA) NEGATIVE (NEGATIVE); URINE KETONE NEGATIVE (NEGATIVE); URINE LEUK ESTERASE NEGATIVE (NEGATIVE); URINE NITRITE NEGATIVE (NEGATIVE); URINE PROTEIN NEGATIVE (NEGATIVE); URINE UROBILINOGEN NEGATIVE mg/dL (0.2-1.0)
[2017-12-21 18:24] LABS: EPI CELLS RARE /HPF (FEW); URINE HYALINE CAST 3 /lpf
--- NOTE | 2017-12-21 19:00 | PDOC ---
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 He also notes myopathy from daptomycin. He also notes having CP only during daptomycin infusion and resolves as soon as he is done with the medication and has some cough while infusing medication as well. The bleeding was limited and only minimal amount of blood was seen and has since stopped. Pt noted 3 bullae yesterday under tape which have since popped and he has noticed 2 more today. The ones that popped were fluid filled w/o pus or blood. He denies N/V/F/C, SOB, abd pain, edema, swelling in arms, and has full ROM in arms. Past History - Travel Traveled outside of the country in the last 30 days: No - Past Medical History Allergies/Adverse Reactions: Allergies Allergy/AdvReac Type Severity Reaction Status Date / Time No Known Allergies Allergy Verified 12/21/17 16:38 Home Medications: Ambulatory Orders Daptomycin 500 mg IV DAILY 21 Days #28 vial 12/14/17 Enoxaparin Sodium [Lovenox] 120 mg SQ DAILY #30 syringe 12/14/17 Miscellaneous Drug Not In Syst [Outpatient Lab Test] 1 each ASDIR #1 misc COPD: No DVT: No - Immunization History Immunization Up to Date: No - Suicide/Smoking/Psychosocial Hx Smoking History: Current every day smoker Have you smoked in the past 12 months: Yes Number of Cigarettes Smoked Daily: 7 If you are a former smoker, when did you quit?: 11/13 Information on smoking cessation initiated: No Hx Alcohol Use: No Drug/Substance Use Hx: No Substance Use Type: None Hx Substance Use Treatment: No Review of Systems - Review of Systems Constitutional: No: Chills, Fever Respiratory: Yes: Cough. No: Shortness of Breath, Wheezing, Productive cough Cardiac (ROS): Yes: Chest Pain (only during dapto infusion) *Physical Exam - Vital Signs Last Vital Signs Temp Pulse Resp BP Pulse Ox 99.3 F 99 H 18 122/73 100 12/21/17 16:38 12/21/17 16:38 12/21/17 16:38 12/21/17 16:38 12/21/17 16:38 - Physical Exam General Appearance: Yes: Appropriately Dressed HEENT: positive: EOMI Respiratory/Chest: positive: Lungs Clear, Normal Breath Sounds. negative: Respiratory Distress, Accessory Muscle Use, Crackles, Rales, Rhonchi, Wheezing Cardiovascular: positive: Regular Rhythm, Regular Rate, S1, S2. negative: Murmur Gastrointestinal/Abdominal: positive: Normal Bowel Sounds, Soft. negative: Tender Integumentary: positive: Other (Bullae under tape from PICC line) Neurologic: positive: trial paralegal II-XII NML intact, Fully Oriented, Alert, Normal Mood/ Affect ED Treatment Course - LABORATORY CBC & Chemistry Diagram: 12/21/17 17:18 12/21/17 17:18 - ADDITIONAL ORDERS Additional order review: Laboratory Results 12/21/17 12/21/17 12/21/17 17:18 17:18 17:18 PT with INR 12.70 INR 1.12 H Sodium 145 Potassium 3.8 Chloride 111 H Carbon Dioxide 24 Anion Gap 10 BUN 8 Creatinine 1.2 Creat Clearance w eGFR > 60 Random Glucose 85 Calcium 8.8 Total Bilirubin 0.2 AST 111 H ALT 55 Alkaline Phosphatase 112 Total Protein 6.7 Albumin 2.9 L Urine Color Straw Urine Appearance Clear Urine pH 7.0 D Ur Specific [place] 1.010 Urine Protein Negative Urine Glucose (UA) Negative Urine Ketones Negative Urine Blood 1+ H Urine Nitrite Negative Urine Bilirubin Negative Urine Urobilinogen Negative Ur Leukocyte Esterase Negative Urine WBC (Auto) 6 Urine RBC (Auto) <1 Ur Epithelial Cells Rare Hyaline Casts 3 12/21/17 17:18 RBC 2.96 L MCV 89.6 MCHC 33.0 RDW 14.9 D MPV 6.4 L Neutrophils % 47.6 Lymphocytes % 38.8 Monocytes % 6.4 Eosinophils % 6.4 H Basophils % 0.8 Medical Decision Making - Medical Decision Making 12/21/17 19:03 Pt noted to have bullae likely from irritation from tape over PICC line. Very minimal dried blood noted and not actively bleeding from PICC line site. Dressing to be changed over PICC line with new bio-patch. Pt to use ricco bandage for compression over stocking. Pt to take tylenol for myopathies and to contact Dr. Paniagua for side effects noted from daptomycin. To use hot compresses for bullae. Pt to be discharged home. *DC/Admit/Observation/Transfer Diagnosis at time of Disposition: Bleeding from PICC line, Bullae - Discharge Dispostion Disposition: HOME Condition at time of disposition: Good - Referrals Referrals: Alyssa Cummings I, RES [Primary Care Provider] - - Patient Instructions Printed Discharge Instructions: Blisters - Post Discharge Activity
--- NOTE | 2017-12-21 19:08 | PDOC ---
Attending Attestation - Resident Resident Name: Jonathan Vallecillo - ED Attending Attestation I have performed the following: I have examined & evaluated the patient, The case was reviewed & discussed with the resident, I agree w/resident's findings & plan, Exceptions are as noted - HPI HPI: 12/21/17 19:15 pt here for bleeding around his PICC line - Physicial Exam PE: 12/21/17 19:07 32 yo male is here because there is some bleeding around his PICC line 12/21/17 19:09 wnwd 32 yo male in no acute distress,no fever there is a PICC line in his right arm and 2 small fluid filled blisters near the tape surrounding his PICC line. No purulence or drainage from the PICC line, there is only a small amt of blood on the tape,there is no active bleeding -good ulnar and radial pulses,sensation intact -thre is no swelling on the arm lungs ctab/l cvs [id number] abd nontender neuro a xox3,no gross focal neuro deficits 12/21/17 19:15 - Medical Decision Making 12/21/17 19:28 PICC bandaging was taken off and changed no further bleeding from site discharged home
--- NOTE | 2017-12-23 17:45 | PN ---
Progress Note (short form) - Note Progress Note: received call this am that [place] cpk was [address]220 creatinine is 1.12 I called the patient immediatelly at 830 am and instructed him to discontinue his daptomycin and go to the ER immediatley I called the ER and informed them that paient needed hydration and may need admission I called [facility] pharmacist and discontinued the daptomycin with plans to treat with vancomycin instead after he returns home the rest of his BMP was normal
== END 2017-12-21 19:15 | disposition home or self-care (01) ==
LOC: JER 15:57
DX: T82.838A Hemorrhage due to vascular prosthetic devices, implants and grafts, initial encounter (principal); T82.7XXA Infection and inflammatory reaction due to other cardiac and vascular devices, implants and grafts, initial encounter; A48.1 Legionnaires' disease; R23.8 Other skin changes; F17.210 Nicotine dependence, cigarettes, uncomplicated; I82.C11 Acute embolism and thrombosis of right internal jugular vein; Z79.01 Long term (current) use of anticoagulants; G72.0 Drug-induced myopathy; T36.8X5A Adverse effect of other systemic antibiotics, initial encounter; Y92.89 Other specified places as the place of occurrence of the external cause
CPT/HCPCS: 36415; 80053; 81003; 81015; 82550; 82553; 84484; 85025; 85610; 99282-25

== ENCOUNTER 2017-12-23 18:26 | Observation (INO) | payer OTHER ==
--- NOTE | 2017-12-23 18:40 | PDOC ---
Rapid Medical Evaluation Time Seen by Provider: 12/23/17 18:40 Medical Evaluation: Allergies Allergy/AdvReac Type Severity Reaction Status Date / Time No Known Allergies Allergy Verified 12/21/17 16:38 I have performed a brief in-person evaluation of this patient. The patient presents with a chief complaint of: was called by Dr. Garcia this morning. His CPK is > 11,000. He is here for fluids Pertinent physical exam findings: none I have ordered the following: labs, IV fluids, insert IV The patient will proceed to the ED for further evaluation. Discharge Disposition - Diagnosis Elevated CPK - Referrals - Patient Instructions - Post Discharge Activity
[2017-12-23] MEDS ORDERED: SODIUM CHLORIDE 0.9% 500 ML INFUS.BAG IV ONE (18:43)
[2017-12-23 18:51] VITALS: BMI 25.0
--- NOTE | 2017-12-23 19:28 | PDOC ---
History of Present Illness - General Chief Complaint: Revisit, Lab Variance Stated Complaint: PCP SENT/WEAKNESS Time Seen by Provider: 12/23/17 18:40 History Source: Patient, Old Records Exam Limitations: No Limitations - History of Present Illness Initial Comments: 12/23/17 19:28 HISTORY OF PRESENT ILLNESS: So 32-year-old male with past medical history of Legionella pneumonia with subsequent a Requiring dialysis, MRSA bacteremia from catheter being treated with IV daptomycin via PICC line, IJ thrombosis on Lovenox was told to return to the emergency department for elevated CPK by Dr. Garcia. Patient was instructed to stop his daptomycin prior to emergency department arrival with plan to switch to vancomycin for home treatment. I present patient currently denies all complaints. No recent travel or sick contacts. PAST MEDICAL HISTORY: see HPI SURGICAL HISTORY: Denies ALLERGIES: No known drug allergies REVIEW OF SYSTEMS General/Constitutional: Denies fever or chills. Denies weakness, weight change. HEENT: Denies change in vision. Denies ear pain or discharge. Denies sore throat. Cardiovascular: Denies chest pain or shortness of breath. Respiratory: Denies cough, wheezing, or hemoptysis. Gastrointestinal: Denies nausea, vomiting, diarrhea or constipation. Denies rectal bleeding. Genitourinary: Denies dysuria, frequency, or change in urination. Musculoskeletal: Denies joint or muscle swelling or pain. Denies neck or back pain. Skin and breasts: Denies rash or easy bruising. Neurologic: Denies headache, vertigo, loss of consciousness, or loss of sensation. Psychiatric: Denies depression or anxiety. Endocrine: Denies increased thirst. Denies abnormal weight change. Hematologic/Lymphatic: Denies anemia, easy bleeding, or history of blood clots. Allergic/Immunologic: Denies hives or skin allergy. Denies latex allergy. PHYSICAL EXAM General Appearance: Well-appearing, appropriately dressed. No apparent distress , no intoxication. HEENT: EOMI, PERRLA, normal ENT inspection, normal voice, TMs normal, pharynx normal. No conjunctival pallor. No photophobia, scleral icterus. Neck: Supple. Trachea midline. No tenderness, rigidity, carotid bruit, stridor , lymphadenopathy, or thyromegaly. Respiratory/Chest: Lungs CTAB. No shortness of breath, chest tenderness, respiratory distress, accessory muscle use. No crackles, rales, rhonchi, stridor , wheezing, dullness Cardiovascular: RRR. S1, S2. No JVD, murmur, bradycardia, tachycardia. Vascular Pulses: Dorsalis-Pedis (R): 2+, Dorsalis-Pedis (L): 2+ Gastrointestinal/Abdominal: Normal bowel sounds. Abdomen soft, non-distended. No tenderness or rebound tenderness. No organomegaly, pulsatile mass, guarding, hernia, hepatomegaly, splenomegaly. Lymphatic: No adenopathy, tenderness. Musculoskeletal/Extremities: Normal inspection. FROM of all extremities, normal capillary refill. Pelvis Stable. No CVA tenderness. No tenderness to extremities, pedal edema, swelling, erythema or deformity. Integumentary: Appropriate color, dry, warm. 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 Fully oriented, alert. Appropriate mood/affect. Motor strength 5/5. No appreciable EOM palsy, facial droop or sensory deficit. Past History - Past Medical History Allergies/Adverse Reactions: Allergies Allergy/AdvReac Type Severity Reaction Status Date / Time No Known Allergies Allergy Verified 12/21/17 16:38 Home Medications: Ambulatory Orders Daptomycin 500 mg IV DAILY 21 Days #28 vial 12/14/17 Enoxaparin Sodium [Lovenox] 120 mg SQ DAILY #30 syringe 12/14/17 Acetaminophen [Tylenol -] 500 mg PO Q6H #100 tablet 12/21/17 COPD: No DVT: No - Immunization History Immunization Up to Date: No - Suicide/Smoking/Psychosocial Hx Smoking History: Current every day smoker Have you smoked in the past 12 months: Yes Number of Cigarettes Smoked Daily: 7 If you are a former smoker, when did you quit?: 11/13 Information on smoking cessation initiated: No Hx Alcohol Use: No Drug/Substance Use Hx: No Substance Use Type: None Hx Substance Use Treatment: No *Physical Exam - Vital Signs Last Vital Signs Temp Pulse Resp BP Pulse Ox 98.7 F 107 H 17 120/81 100 12/23/17 18:42 12/23/17 18:42 12/23/17 18:42 12/23/17 18:42 12/23/17 18:42 ED Treatment Course - LABORATORY CBC & Chemistry Diagram: 12/23/17 19:38 12/23/17 19:38 Medical Decision Making - Medical Decision Making 12/23/17 19:30 A/P: 32-year-old male here for elevated CPK Physical exam is within normal limits Labs, hydration, ID consult 12/23/17 21:36 Laboratory testing reveals CK of 11,159. Creatinine 1.2 consistent with patient' s baseline. Remainder of BMP is unremarkable. I'll contact hospitalist for observation for IV antibiotics and trending of CPK. EKG sinus rhythm with rate of 84. Normal intervals. No ST elevations or ST depressions present. Chest x-rays read by Dr. Flores: Cardiac silhouette is within normal limits in size. A right subclavian central venous catheter is now present with step in this is BC. No gross pneumothorax is identified. Interval removal of previous visualized right internal jugular permacath. The lung is clear. Mediastinum visualized osseous structures appear grossly intact. Vancomycin 1250 mg IV now. 12/24/17 01:58 *DC/Admit/Observation/Transfer Diagnosis at time of Disposition: Elevated CPK Bacteremia associated with intravascular line Qualifiers: Encounter type: subsequent encounter Qualified Code(s): T82.7XXD - Infection and inflammatory reaction due to other cardiac and vascular devices, implants and grafts, subsequent encounter - Discharge Dispostion Condition at time of disposition: Fair Decision to Admit order: Yes - Referrals - Patient Instructions - Post Discharge Activity
[2017-12-23 20:06] LABS: BASO % 1.2 % (0-2.0); HEMATOCRIT 26.6 % (35.4-49); HEMOGLOBIN 8.8 GM/dL (11.7-16.9); LYMPH % 42.1 % (8-40); MCH 29.6 pg (25.7-33.7); MCHC 33.1 g/dl (32.0-35.9); MEAN CELL VOLUME 89.4 fl (80-96); MEAN PLT VOLUME 6.5 fl (7.5-11.1); MONO % 6.2 % (3.8-10.2); NEUT % 42.5 % (42.8-82.8); PLATELET COUNT 472 K/MM3 (134-434); RBC 2.98 M/mm3 (4.00-5.60)
[2017-12-23 21:09] LABS: URINE APPEARANCE CLEAR; URINE BILIRUBIN NEGATIVE (<2.0 mg/dL); URINE COLOR LTYELLOW; URINE GLUCOSE (UA) NEGATIVE (NEGATIVE); URINE KETONE NEGATIVE (NEGATIVE); URINE LEUK ESTERASE NEGATIVE (NEGATIVE); URINE NITRITE NEGATIVE (NEGATIVE); URINE PROTEIN NEGATIVE (NEGATIVE); URINE UROBILINOGEN NEGATIVE mg/dL (0.2-1.0)
[2017-12-23 21:12] LABS: ALK PHOS 121 U/L (45-117); ANION GAP 11 MMOL/L (8-16); BILIRUBIN,TOTAL 0.2 mg/dL (0.2-1); BLOOD UREA NITROGEN 8 mg/dL (7-18); CALCIUM 9.2 mg/dL (8.5-10.1); CHLORIDE 109 mmol/L (98-107); CO2 25 mmol/L (21-32); CREATININE 1.2 mg/dL (0.55-1.3); GLUCOSE,RANDOM 74 mg/dL (74-106); POTASSIUM 3.5 mmol/L (3.5-5.1); SGOT/AST 161 U/L (15-37); SGPT/ALT 71 U/L (13-61); SODIUM 145 mmol/L (136-145); TOT PROT 6.7 g/dl (6.4-8.2)
[2017-12-23] MEDS ORDERED: SODIUM CHLORIDE 1,000 ML IV STA (21:21)
[2017-12-23] MEDS ORDERED: VANCOMYCIN 1,250 MG in DEXTROSE 5%-WATER - 250 ML IVPB ONE (21:37)
--- NOTE | 2017-12-23 21:42 | PN ---
Teaching Attending Note Name of Resident: Doug Gil ATTENDING PHYSICIAN STATEMENT I saw and evaluated the patient. I reviewed the resident's note and discussed the case with the resident. I agree with the resident's findings and plan as documented. SUBJECTIVE: OBJECTIVE: GEN: A&Ox3 in NAD HEENT: PERRLA, EOMI, MMM CVS:RRR s1, S2 Abd: soft, NT, ND, BS+ Ext: Nl ROM, RUE picc line access Neuro: Cn 2-12 intact CBCD WBC 6.0 K/mm3 (4.0-10.0) 12/23/17 19:38 RBC 2.98 M/mm3 (4.00-5.60) L 12/23/17 19:38 Hgb 8.8 GM/dL (11.7-16.9) L 12/23/17 19:38 Hct 26.6 % (35.4-49) L 12/23/17 19:38 MCV 89.4 fl (80-96) 12/23/17 19:38 MCHC 33.1 g/dl (32.0-35.9) 12/23/17 19:38 RDW 15.0 % (11.9-15.9) 12/23/17 19:38 Plt Count 472 K/MM3 (134-434) H 12/23/17 19:38 MPV 6.5 fl (7.5-11.1) L 12/23/17 19:38 CMP Sodium 145 mmol/L (136-145) 12/23/17 19:38 Potassium 3.5 mmol/L (3.5-5.1) 12/23/17 19:38 Chloride 109 mmol/L (98-107) H 12/23/17 19:38 Carbon Dioxide 25 mmol/L (21-32) 12/23/17 19:38 Anion Gap 11 MMOL/L (8-16) 12/23/17 19:38 BUN 8 mg/dL (7-18) 12/23/17 19:38 Creatinine 1.2 mg/dL (0.55-1.3) 12/23/17 19:38 Creat Clearance w eGFR > 60 (>60) 12/23/17 19:38 Calcium 9.2 mg/dL (8.5-10.1) 12/23/17 19:38 Total Bilirubin 0.2 mg/dL (0.2-1) 12/23/17 19:38 AST 161 U/L (15-37) H 12/23/17 19:38 ALT 71 U/L (13-61) H 12/23/17 19:38 Alkaline Phosphatase 121 U/L (45-117) H 12/23/17 19:38 Total Protein 6.7 g/dl (6.4-8.2) 12/23/17 19:38 Albumin 3.0 g/dl (3.4-5.0) L 12/23/17 19:38 ASSESSMENT AND PLAN: R/O Rhabdomyolysis IVF NS @200cc/h Urine for Myoglobins Trend CK And hold Daptomycin for adverse effect of Rhabdomyolysis Hypomagnesemia supplement Mg Continue Home medications Case d/w resident
--- NOTE | 2017-12-23 23:57 | HP ---
CHIEF COMPLAINT: PCP: [facility] HISTORY OF PRESENT ILLNESS: pt is a 32 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 Pt presented to [facility] after being informed by his Infectious Disease physician of a severely elevated CPK level. Pt was recently receiving Daptomycin via a PICC line dueto MRSA bacteremia from a permacath. Pt was informed to withhold the Daptomycin due to his side effects of widespread myalgia and CPK elevation. Pt endorses he has been taking Daptomycin for 1 week now. Yesterday, pt states he began experiencing chest pain and cough 20 minutes after receiving his daptomycin treatment. Pain is escribed as chest tightness and resolves after 20 minutes Pt today is c/o soreness in both of his calfs as well as his forearms. He is taking lovenox at home for his h/o thrombosis. Denies chest pain, nausea, headache, shortness of breath, lightheadedness, or fever. ER course was notable for: (1) CPK of 11,159 (2) H/H 8.8/ 26.6 (3) Vanc 1250 MG Recent Travel: PAST MEDICAL HISTORY: Per HPI PAST SURGICAL HISTORY: Social History: Smoking:Denies Alcohol: Social Drinker Drugs: Occasional Marijuana Family History: Allergies No Known Allergies Allergy (Verified 12/21/17 16:38) HOME MEDICATIONS: Home Medications Medication Instructions Recorded Daptomycin 500 mg IV DAILY 21 Days #28 vial 12/14/17 Enoxaparin Sodium [Lovenox] 120 mg SQ DAILY #30 syringe 12/14/17 Acetaminophen [Tylenol -] 500 mg PO Q6H #100 tablet 12/21/17 REVIEW OF SYSTEMS CONSTITUTIONAL: Absent: fever, chills, diaphoresis, generalized weakness, malaise, loss of appetite, weight change HEENT: Absent: rhinorrhea, nasal congestion, throat pain, throat swelling, difficulty swallowing, mouth swelling, ear pain, eye pain, visual changes CARDIOVASCULAR: Absent: chest pain, syncope, palpitations, irregular heart rate, lightheadedness , peripheral edema RESPIRATORY: PRESENT: cough GASTROINTESTINAL: Absent: abdominal pain, abdominal distension, nausea, vomiting, diarrhea, constipation, melena, hematochezia GENITOURINARY: Absent: dysuria, frequency, urgency, hesitancy, hematuria, flank pain, genital pain MUSCULOSKELETAL: PRESENT: myalgia, SKIN: Absent: rash, itching, pallor HEMATOLOGIC/IMMUNOLOGIC: Absent: easy bleeding, easy bruising, lymphadenopathy, frequent infections ENDOCRINE: Absent: unexplained weight gain, unexplained weight loss, heat intolerance, cold intolerance NEUROLOGIC: Absent: headache, focal weakness or paresthesias, dizziness, unsteady gait, seizure, mental status changes, bladder or bowel incontinence PSYCHIATRIC: Absent: anxiety, depression, suicidal or homicidal ideation, hallucinations. PHYSICAL EXAMINATION Vital Signs - 24 hr 12/23/17 18:42 Temperature 98.7 F Pulse Rate 107 H Respiratory 17 Rate Blood Pressure 120/81 O2 Sat by Pulse 100 Oximetry (%) GENERAL: aaoX3, NAD HEAD: NC/AT EYES:EOMI, PERRLA EARS, NOSE, THROAT: Moist mucous membranes. NECK: Supple, No JVD LUNGS: CTA B/L, no rhonchi, rales, or wheezing appreciated HEART: RRR No MR S1 S2 ABDOMEN: NT ND No HSM BS + MUSCULOSKELETAL: Full ROM throughout. UPPER EXTREMITIES: PICC line in place left arm LOWER EXTREMITIES: No CCE NEUROLOGICAL: cn 2-12 intact PSYCHIATRIC: Cooperative. Good eye contact. Appropriate mood and affect. SKIN: Warm, no rashes Laboratory Results - last 24 hr 12/23/17 12/23/17 12/23/17 19:38 19:38 20:19 WBC 6.0 RBC 2.98 L Hgb 8.8 L Hct 26.6 L MCV 89.4 MCH 29.6 MCHC 33.1 RDW 15.0 Plt Count 472 H MPV 6.5 L Absolute Neuts (auto) 2.5 Neutrophils % 42.5 L Lymphocytes % 42.1 H Monocytes % 6.2 Eosinophils % 8.0 H Basophils % 1.2 Nucleated RBC % 0 Sodium 145 Potassium 3.5 Chloride 109 H Carbon Dioxide 25 Anion Gap 11 BUN 8 Creatinine 1.2 Creat Clearance w eGFR > 60 Random Glucose 74 Calcium 9.2 Total Bilirubin 0.2 AST 161 H ALT 71 H Alkaline Phosphatase 121 H Creatine Kinase 41278 H Creatine Kinase Index 0.0 CK-MB (CK-2) 2.0 Total Protein 6.7 Albumin 3.0 L Urine Color Ltyellow Urine Appearance Clear Urine pH 7.0 Ur Specific [place] 1.010 Urine Protein Negative Urine Glucose (UA) Negative Urine Ketones Negative Urine Blood Negative Urine Nitrite Negative Urine Bilirubin Negative Urine Urobilinogen Negative Ur Leukocyte Esterase Negative ASSESSMENT/PLAN: 32 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 Pt presented to [facility] after being informed by his Infectious Disease physician of a severely elevated CPK level. # Rhabdomyolysis 2/2 Daptomycin - CPK level 11,159 on admission - Withold Daptomycin - IV Fluids NS @ 200 ml/hr - I.D on board - Urine Myoglobin # H/O MRSA of Permacath -Switch Dapto to Vanc per I.D -Contact precautions in place #Anemia H/H 8.8/26.6 -Repeat CBC 8.4/25.8 -Continue to trend H/H Transaminitis -161/71 ast/alt respectively -Continue to trend FEN NS@200 ml/hr Monitor Electrolytes Renal Diet DVT ppx: Lovenox 120 mg SQ Daily Dispo: Continue to monitor on floor Visit type - Emergency Visit Emergency Visit: Yes ED Registration Date: 12/24/17 Care time: The patient presented to the Emergency Department on the above date and was hospitalized for further evaluation of their emergent condition. - New Patient This patient is new to me today: Yes Date on this admission: 12/24/17 - Critical Care Critical Care patient: No Hospitalist Screening - Colonoscopy Questionnaire Colonoscopy Questionnaire: Colonoscopy Questionnaire - Patient: 50 - 75 years old and never had a screening colonoscopy: Unknown History of colon or rectal polyps, or CA: Unknown History of IBD, Crohn's disease or UC: Unknown History of abdominal radiation therapy as a child: Unknown - Relative: 1 with colon or rectal CA, or polyps at age 60 or younger: Unknown Colon or rectal CA diagnosed at age 45 or younger: Unknown Multiple relatives with colon or rectal CA: Unknown - Outcome: Screening Result: Negative Screen
[2017-12-24] MEDS ORDERED: POTASSIUM CHLORIDE TABS 10 MEQ TABLET.ER (FP) PO ONE
[2017-12-24] MEDS ORDERED: POTASSIUM CHLORIDE TABS 10 MEQ TABLET.ER (FP) ONE (00:05)
[2017-12-24] MEDS ORDERED: SODIUM CHLORIDE 1,000 ML IV SCH ×2 (00:15→08:30)
[2017-12-24] MEDS ORDERED: LACTATED RINGERS SOLUTION 1,000 ML/1,000 ML INFUS.BAG IV SCH ×2 (04:45)
[2017-12-24 07:42] LABS: EOS % 8.7 % (0-4.5); HEMATOCRIT 25.8 % (35.4-49); HEMOGLOBIN 8.4 GM/dL (11.7-16.9); LYMPH % 42.8 % (8-40); MCH 29.1 pg (25.7-33.7); MCHC 32.6 g/dl (32.0-35.9); MEAN CELL VOLUME 89.1 fl (80-96); MEAN PLT VOLUME 6.1 fl (7.5-11.1); MONO % 6.1 % (3.8-10.2); NEUT % 41.4 % (42.8-82.8); PLATELET COUNT 381 K/MM3 (134-434); RBC 2.89 M/mm3 (4.00-5.60); RDW 15.1 % (11.9-15.9); WHITE BLOOD COUNT 4.7 K/mm3 (4.0-10.0)
[2017-12-24 08:09] LABS: ANION GAP 7 MMOL/L (8-16); BLOOD UREA NITROGEN 6 mg/dL (7-18); CALCIUM 8.4 mg/dL (8.5-10.1); CHLORIDE 113 mmol/L (98-107); CO2 26 mmol/L (21-32); GLUCOSE,RANDOM 81 mg/dL (74-106); MAGNESIUM 1.7 mg/dL (1.8-2.4); PHOSPHOROUS 4.2 mg/dL (2.5-4.9); POTASSIUM 3.7 mmol/L (3.5-5.1); SODIUM 146 mmol/L (136-145)
[2017-12-24] MEDS ORDERED: MAGNESIUM 1GM/D5W - 1 GM/100 ML IVPB IVPB ONE (09:00)
[2017-12-24 09:40] LABS: ALBUMIN 2.6 g/dl (3.4-5.0); ALK PHOS 108 U/L (45-117); BILIRUBIN,DIRECT < 0.2 mg/dL (0.0-0.2); BILIRUBIN,TOTAL 0.2 mg/dL (0.2-1); SGOT/AST 116 U/L (15-37); SGPT/ALT 59 U/L (13-61); TOT PROT 5.8 g/dl (6.4-8.2)
[2017-12-24] MEDS ORDERED: ENOXAPARIN NA (PORCINE) 120 MG/0.8 ML DISP.SYRIN SQ SCH (10:00)
--- NOTE | 2017-12-24 11:26 | EKG ---
Test Reason : Blood Pressure : / mmHG Vent. Rate : 084 BPM Atrial Rate : 084 BPM P-R Int : 140 ms QRS Dur : 080 ms QT Int : 402 ms P-R-T Axes : 037 037 043 degrees QTc Int : 475 ms NORMAL SINUS RHYTHM WITH SINUS ARRHYTHMIA NORMAL ECG WHEN COMPARED WITH ECG OF 12-DEC-2017 10:09, NONSPECIFIC T WAVE ABNORMALITY, IMPROVED IN INFERIOR LEADS Confirmed by RAQUEL PRITCHARD, LEAH ([id number]) on 12/24/2017 11:26:34 AM Referred By: Confirmed By:LEAH GARCÍA MD
--- NOTE | 2017-12-24 11:48 | PN ---
Physical Exam: SUBJECTIVE: Patient seen and examined at bedside this morning. He denies upper or lower extremity weakness, or myalgias today. Denies fevers, chills, shortness of breath, chest pain, palpitations, abdominal pain, nausea, vomiting , diarrhea, constipation. OBJECTIVE: Vital Signs Period Temp Pulse Resp BP Sys/Dangelo Pulse Ox Last 24 Hr 97.4 F-98.7 F 74-107 17-20 116-140/61-81 99-100 GENERAL: The patient is awake, alert, and fully oriented, in no acute distress. Resting comfortably in exam bed. HEAD: Normal with no signs of trauma. EYES: PERRLA, extraocular movements intact without nystagmus. Sclera anicteric, conjunctiva non-injected b/l. ENT: Oropharynx clear without exudates, erythema, or lesions. Moist mucous membranes. NECK: Trachea midline, full range of motion. Supple without lymphadenopathy. LUNGS: Good inspiratory effort. Breath sounds equal, clear to auscultation bilaterally. No wheezes, no crackles. No accessory muscle use. HEART: Regular rate and rhythm. S1, S2 auscultated without murmur, rub or gallop. ABDOMEN: Soft, nontender, nondistended. hypoactive bowel sounds x4 quadrants. No guarding, no rebound tenderness. No hepatosplenomegaly. EXTREMITIES: 2+ pulses radial and dorsalis pedis b/l. Warm, well-perfused, no lower extremity calf tenderness, or edema b/l. NEUROLOGICAL: Cranial nerves II through XII grossly intact. Normal speech. PSYCH: Mood and affect appropriate to my encounter this morning. SKIN: Warm, dry. Patient has right-sided subclavian venous catheter. Laboratory Results - last 24 hr 12/23/17 12/23/17 12/23/17 19:38 19:38 20:19 WBC 6.0 RBC 2.98 L Hgb 8.8 L Hct 26.6 L MCV 89.4 MCH 29.6 MCHC 33.1 RDW 15.0 Plt Count 472 H MPV 6.5 L Absolute Neuts (auto) 2.5 Neutrophils % 42.5 L Lymphocytes % 42.1 H Monocytes % 6.2 Eosinophils % 8.0 H Basophils % 1.2 Nucleated RBC % 0 Sodium 145 Potassium 3.5 Chloride 109 H Carbon Dioxide 25 Anion Gap 11 BUN 8 Creatinine 1.2 Creat Clearance w eGFR > 60 Random Glucose 74 Calcium 9.2 Phosphorus Magnesium Total Bilirubin 0.2 Direct Bilirubin AST 161 H ALT 71 H Alkaline Phosphatase 121 H Creatine Kinase 13076 H Creatine Kinase Index 0.0 CK-MB (CK-2) 2.0 Total Protein 6.7 Albumin 3.0 L Urine Color Ltyellow Urine Appearance Clear Urine pH 7.0 Ur Specific [place] 1.010 Urine Protein Negative Urine Glucose (UA) Negative Urine Ketones Negative Urine Blood Negative Urine Nitrite Negative Urine Bilirubin Negative Urine Urobilinogen Negative Ur Leukocyte Esterase Negative 12/24/17 12/24/17 12/24/17 07:10 07:10 07:10 WBC 4.7 RBC 2.89 L Hgb 8.4 L Hct 25.8 L MCV 89.1 MCH 29.1 MCHC 32.6 RDW 15.1 Plt Count 381 MPV 6.1 L Absolute Neuts (auto) 1.9 Neutrophils % 41.4 L Lymphocytes % 42.8 H Monocytes % 6.1 Eosinophils % 8.7 H Basophils % 1.0 Nucleated RBC % 0 Sodium 146 H Potassium 3.7 Chloride 113 H Carbon Dioxide 26 Anion Gap 7 L BUN 6 L Creatinine 1.0 Creat Clearance w eGFR > 60 Random Glucose 81 Calcium 8.4 L Phosphorus 4.2 Magnesium 1.7 L Total Bilirubin 0.2 Direct Bilirubin < 0.2 AST 116 H ALT 59 Alkaline Phosphatase 108 Creatine Kinase 6435 H Cancelled Creatine Kinase Index 0.0 CK-MB (CK-2) 1.2 Total Protein 5.8 L Albumin 2.6 L Urine Color Urine Appearance Urine pH Ur Specific [place] Urine Protein Urine Glucose (UA) Urine Ketones Urine Blood Urine Nitrite Urine Bilirubin Urine Urobilinogen Ur Leukocyte Esterase 12/24/17 12/24/17 07:10 07:10 WBC RBC Hgb Hct MCV MCH MCHC RDW Plt Count MPV Absolute Neuts (auto) Neutrophils % Lymphocytes % Monocytes % Eosinophils % Basophils % Nucleated RBC % Sodium Potassium Chloride Carbon Dioxide Anion Gap BUN Creatinine Creat Clearance w eGFR Random Glucose Calcium Phosphorus Magnesium Total Bilirubin Cancelled Direct Bilirubin Cancelled AST Cancelled ALT Cancelled Alkaline Phosphatase Cancelled Creatine Kinase Creatine Kinase Index CK-MB (CK-2) Cancelled Total Protein Cancelled Albumin Cancelled Urine Color Urine Appearance Urine pH Ur Specific [place] Urine Protein Urine Glucose (UA) Urine Ketones Urine Blood Urine Nitrite Urine Bilirubin Urine Urobilinogen Ur Leukocyte Esterase Active Medications Generic Name Dose Route Start Last Admin Trade Name Tatyana PRN Reason Stop Dose Admin Enoxaparin Sodium 120 mg 12/24/17 10:00 Lovenox - SQ DAILY [facility] Sodium Chloride 1,000 mls @ 200 mls/hr 12/24/17 08:30 12/24/17 09:56 Normal Saline - IV 200 mls/hr ASDIR [facility] Administration Vancomycin HCl 1 gm in 200 mls @ 166.667 mls/hr 12/24/17 12:00 Vancomycin 1 Gm Premix - IVPB BID@0000,1200 [facility] Protocol ASSESSMENT/PLAN: Patient is a 32 year old male with history of MRSA bacteremia, internal jugular thrombosis, treated with Daptomycin, presented to the ED after phone call of elevated CK. Elevated creatine kinase -Likely secondary to Daptomycin and rhabdomyolosis. -CK 11,159 upon admission -> 6,435 today. -IV normal saline 200mL/hour -Nephrology consult (Dr. Edmondson) appreciated: Will D/C daptomycin, and continue with IV hydration. Safe to discharge once CK is less than 5000. MRSA bacteremia -D/C Daptomycin as it was likely contributing to elevated Creatine Kinase levels. -ID recommendation (Dr. 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 -Continue Lovenox 120 mg subq daily FEN -IV NS at 200mL/hour -Will follow CMP -Renal diet Prophylaxis -Patient is currently taking Lovenox 120mg subq daily Disposition -Continue care in medical surgical floor.
[2017-12-24] MEDS ORDERED: VANCOMYCIN 1 GM PREMIX - 1 GM/200 ML BAG IVPB SCH (12:00)
--- NOTE | 2017-12-24 12:26 | CONSULT ---
Consult - text type - Consultation Consultation Note: Renal Consult for Rhabdomyolysis This is a 32 year old gentleman with hx of acute renal failure from Legionella and Rhabdo that required dialysis (short term), MRSA bacteremia on IV Daptomycin as outpatient who presented with myalgias and elevated CK. Pt reports muscle pain over the last few days. No dark urine or dysuria. No fever, chills, SOB, abd pain, N/V/D. Making urine w/o difficulty. No edema. PMhx: as above Allergies: NKDA Family Hx: NC Social Hx: No T/A/D ROS: as per HPI, all other pertinent ros negative Home Medications Medication Instructions Recorded Daptomycin 500 mg IV DAILY 21 Days #28 vial 12/14/17 Enoxaparin Sodium [Lovenox] 120 mg SQ DAILY #30 syringe 12/14/17 Acetaminophen [Tylenol -] 500 mg PO Q6H #100 tablet 12/21/17 Intake & Output 12/21/17 12/22/17 12/23/17 12/24/17 23:59 23:59 23:59 23:59 Intake Total 590 Balance 590 Weight 86.183 kg 94.892 kg Vital Signs Temperature 97.4 F L 12/24/17 06:00 Pulse Rate 88 12/24/17 06:00 Respiratory Rate 20 12/24/17 06:00 Blood Pressure 116/62 12/24/17 06:00 O2 Sat by Pulse Oximetry (%) 99 12/24/17 05:22 NAD awake and alert RRR, No M/R CTA, no rales or wheeze soft NT/ND No LE edmea Right arm PICC line CBC, BMP 12/24/17 07:10 12/24/17 07:10 Current Medications Enoxaparin Sodium (Lovenox -) 120 mg SQ DAILY [facility] Sodium Chloride (Normal Saline -) 1,000 mls @ 200 mls/hr IV ASDIR ODIL[facility] Last Admin: 12/24/17 09:56 Dose: 200 mls/hr Vancomycin HCl (Vancomycin 1 Gm Premix -) 1 gm in 200 mls @ 166.667 mls/hr IVPB BID@0000,1200 [facility]; Protocol 32 year old gentleman with hx of acute renal failure from Legionella and Rhabdo that required dialysis (short term), MRSA bacteremia on IV Daptomycin as outpatient who presented with myalgias and elevated CK. #Rhabdomyolysis secondary to daptomycin #Hx of [place], renal function now improved and stable #MRSA bacteremia #IJ thrombosis CKs downtrending and renal function stable Continue IVF until CK level < 5000 to be taken off Daptomycin per ID and replace with IV Vanco on IV Lovenox for thrombosis, repeat US today stable for discharge on oral hydration once CK < 5000 advised to maintain good oral hydration and to call office or come to ED if urine turns dark or has recurrent muscle pain Thank you Rojas Edmondson DO
[2017-12-24 12:34] LABS: INR 1.13 (0.83-1.09); PROTHROMBIN TIME (PATIENT) 13.3 SEC (9.7-13.0)
[2017-12-24 12:36] LABS: ACTIVATED PTT 39.1 SECONDS (25.2-36.5)
--- NOTE | 2017-12-24 14:58 | PN ---
Teaching Attending Note Name of Resident: Sergio Doyle ATTENDING PHYSICIAN STATEMENT I saw and evaluated the patient. I reviewed the resident's note and discussed the case with the resident. I agree with the resident's findings and plan as documented. SUBJECTIVE: Patient is comfortable with no acute distress. OBJECTIVE: Vital Signs Temperature 97.4 F L 12/24/17 06:00 Pulse Rate 88 12/24/17 06:00 Respiratory Rate 20 12/24/17 06:00 Blood Pressure 116/62 12/24/17 06:00 O2 Sat by Pulse Oximetry (%) 99 12/24/17 05:22 GENERAL: The patient is awake, alert, and fully oriented, in no acute distress. HEAD: Normal with no signs of trauma. EYES: PERRLA, EOMI. Sclera anicteric, ENT: Oropharynx clear without exudates, erythema, or lesions. Moist mucous membranes. NECK: Trachea midline, full range of motion. Supple without lymphadenopathy. LUNGS: Good inspiratory effort. Breath sounds equal, clear to auscultation bilaterally. No wheezes, no crackles. HEART: Regular rate and rhythm. S1, S2 auscultated without murmur, rub or gallop. ABDOMEN: Soft, NT,ND, No guarding, no rebound tenderness. No hepatosplenomegaly. EXTREMITIES: 2+ pulses . Warm, well-perfused, no lower extremity calf tenderness , no edema NEUROLOGICAL: Cranial nerves II through XII grossly intact. Normal speech. PSYCH: Mood and affect appropriate to my encounter this morning. SKIN: Warm, dry. venous catheter at the right side . CBCD WBC 4.7 K/mm3 (4.0-10.0) 12/24/17 07:10 RBC 2.89 M/mm3 (4.00-5.60) L 12/24/17 07:10 Hgb 8.4 GM/dL (11.7-16.9) L 12/24/17 07:10 Hct 25.8 % (35.4-49) L 12/24/17 07:10 MCV 89.1 fl (80-96) 12/24/17 07:10 MCHC 32.6 g/dl (32.0-35.9) 12/24/17 07:10 RDW 15.1 % (11.9-15.9) 12/24/17 07:10 Plt Count 381 K/MM3 (134-434) 12/24/17 07:10 MPV 6.1 fl (7.5-11.1) L 12/24/17 07:10 CMP Sodium 146 mmol/L (136-145) H 12/24/17 07:10 Potassium 3.7 mmol/L (3.5-5.1) 12/24/17 07:10 Chloride 113 mmol/L (98-107) H 12/24/17 07:10 Carbon Dioxide 26 mmol/L (21-32) 12/24/17 07:10 Anion Gap 7 MMOL/L (8-16) L 12/24/17 07:10 BUN 6 mg/dL (7-18) L 12/24/17 07:10 Creatinine 1.0 mg/dL (0.55-1.3) 12/24/17 07:10 Creat Clearance w eGFR > 60 (>60) 12/24/17 07:10 Random Glucose 81 mg/dL (74-106) 12/24/17 07:10 Calcium 8.4 mg/dL (8.5-10.1) L 12/24/17 07:10 Total Bilirubin 0.2 mg/dL (0.2-1) 12/24/17 07:10 AST 116 U/L (15-37) H 12/24/17 07:10 ALT 59 U/L (13-61) 12/24/17 07:10 Alkaline Phosphatase 108 U/L (45-117) 12/24/17 07:10 Total Protein 5.8 g/dl (6.4-8.2) L 12/24/17 07:10 Albumin 2.6 g/dl (3.4-5.0) L 12/24/17 07:10 CARDIAC ENZYMES Creatine Kinase 6435 IU/L (26-308) H 12/24/17 07:10 Current Medications Generic Name Dose Route Start Last Admin Trade Name Madhuq PRN Reason Stop Dose Admin Enoxaparin Sodium 120 mg 12/24/17 10:00 Lovenox - SQ DAILY DOILIA Sodium Chloride 1,000 mls @ 200 mls/hr 12/24/17 08:30 12/24/17 09:56 Normal Saline - IV 200 mls/hr ASDIR ODILIA Administration Vancomycin HCl 1 gm in 200 mls @ 166.667 mls/hr 12/24/17 12:00 12/24/17 12:55 Vancomycin 1 Gm Premix - IVPB 166.667 mls/hr BID@0000,1200 [facility] Administration Protocol Laboratory Tests 10/31/17 10/31/17 10/31/17 18:20 18:20 18:30 Schistocytes ESR Retic Count Haptoglobin ABG pH ABG pCO2 at Pt Temp ABG pO2 at Pt Temp ABG HCO3 ABG O2 Sat (Measured) ABG O2 Content ABG Base Excess VBG pH 7.47 H POC VBG pCO2 26.9 L POC VBG pO2 66.4 H Mixed VBG HCO3 19.2 Sodium 131 L Potassium Creatinine Calcium Iron TIBC Iron Saturation Ferritin Total Bilirubin Direct Bilirubin AST ALT LD Total Creatine Kinase CK-MB (CK-2) Troponin I C-Reactive Protein Total Protein Urine Bacteria Moderate Urine Osmolality U Random Total Protein Ur Random Sodium Ur Random Potassium Ur Random Chloride Ur Random Urea Nitrogn Urine Creatinine CSF Appearance CSF Color CSF WBC CSF RBC CSF Neutrophils CSF Lymphocytes CSF Eosinophils CSF Basophils CSF Macrophages CSF Plasma Cells CSF Diff Comment CSF Comment CSF Glucose CSF Total Protein Opiates Screen Methadone Screen Barbiturate Screen Phencyclidine Screen Ur Amphetamines Screen MDMA (Ecstasy) Screen Benzodiazepines Screen Cocaine Screen U Marijuana (THC) Screen SHARAN M-Naveed AJ Screen c-ANCA Proteinase 3 (PR3) p-ANCA Atypical p-ANCA Myeloperoxidase Ab 10/31/17 10/31/17 10/31/17 18:30 23:30 23:30 Schistocytes ESR Retic Count Haptoglobin ABG pH ABG pCO2 at Pt Temp ABG pO2 at Pt Temp ABG HCO3 ABG O2 Sat (Measured) ABG O2 Content ABG Base Excess VBG pH POC VBG pCO2 POC VBG pO2 Mixed VBG HCO3 Sodium Potassium Creatinine Calcium Iron TIBC Iron Saturation Ferritin Total Bilirubin Direct Bilirubin AST ALT LD Total Creatine Kinase CK-MB (CK-2) Troponin I C-Reactive Protein Total Protein Urine Bacteria Urine Osmolality U Random Total Protein Ur Random Sodium Ur Random Potassium Ur Random Chloride Ur Random Urea Nitrogn Urine Creatinine CSF Appearance Clear Clear CSF Color [place] Colorless CSF WBC 0 0 CSF RBC 2112 19 CSF Neutrophils No Result Required. No Result Required. CSF Lymphocytes No Result Required. No Result Required. CSF Eosinophils No Result Required. No Result Required. CSF Basophils No Result Required. No Result Required. CSF Macrophages No Result Required. No Result Required. CSF Plasma Cells No Result Required. No Result Required. CSF Diff Comment No Result Required. CSF Comment No Result Required. CSF Glucose 73 No Result Required. CSF Total Protein 35 No Result Required. Opiates Screen Negative Methadone Screen Negative Barbiturate Screen Negative Phencyclidine Screen Negative Ur Amphetamines Screen Negative MDMA (Ecstasy) Screen Negative Benzodiazepines Screen Negative Cocaine Screen Negative U Marijuana (THC) Screen Positive SHARAN M-Naveed AJ Screen c-ANCA Proteinase 3 (PR3) p-ANCA Atypical p-ANCA Myeloperoxidase Ab 11/01/17 11/01/17 11/01/17 02:44 03:27 07:50 Schistocytes Rare ESR Retic Count Haptoglobin Pending ABG pH ABG pCO2 at Pt Temp ABG pO2 at Pt Temp ABG HCO3 ABG O2 Sat (Measured) ABG O2 Content ABG Base Excess VBG pH POC VBG pCO2 POC VBG pO2 Mixed VBG HCO3 Sodium Potassium Creatinine Calcium Iron TIBC Iron Saturation Ferritin Total Bilirubin Direct Bilirubin AST ALT LD Total Creatine Kinase CK-MB (CK-2) Troponin I C-Reactive Protein Total Protein Urine Bacteria Urine Osmolality U Random Total Protein Ur Random Sodium 24 Ur Random Potassium Ur Random Chloride Ur Random Urea Nitrogn Urine Creatinine 244.0 CSF Appearance CSF Color CSF WBC CSF RBC CSF Neutrophils CSF Lymphocytes CSF Eosinophils CSF Basophils CSF Macrophages CSF Plasma Cells CSF Diff Comment CSF Comment CSF Glucose CSF Total Protein Opiates Screen Methadone Screen Barbiturate Screen Phencyclidine Screen Ur Amphetamines Screen MDMA (Ecstasy) Screen Benzodiazepines Screen Cocaine Screen U Marijuana (THC) Screen SHARAN M-Naveed AJ Screen c-ANCA Proteinase 3 (PR3) p-ANCA Atypical p-ANCA Myeloperoxidase Ab 11/01/17 11/01/17 11/01/17 07:50 07:50 07:50 Schistocytes ESR Retic Count Haptoglobin ABG pH ABG pCO2 at Pt Temp ABG pO2 at Pt Temp ABG HCO3 ABG O2 Sat (Measured) ABG O2 Content ABG Base Excess VBG pH POC VBG pCO2 POC VBG pO2 Mixed VBG HCO3 Sodium 131 L Potassium 3.7 Creatinine 8.6 H* Calcium 6.7 L* Iron TIBC Iron Saturation Ferritin Total Bilirubin 1.7 H Direct Bilirubin 1.4 H AST 371 H D ALT 214 H D LD Total 1744 H Creatine Kinase 26037 H CK-MB (CK-2) 10.95 H Troponin I 0.18 H D C-Reactive Protein Total Protein 5.6 L Urine Bacteria Urine Osmolality U Random Total Protein Ur Random Sodium Ur Random Potassium Ur Random Chloride Ur Random Urea Nitrogn Urine Creatinine CSF Appearance CSF Color CSF WBC CSF RBC CSF Neutrophils CSF Lymphocytes CSF Eosinophils CSF Basophils CSF Macrophages CSF Plasma Cells CSF Diff Comment CSF Comment CSF Glucose CSF Total Protein Opiates Screen Methadone Screen Barbiturate Screen Phencyclidine Screen Ur Amphetamines Screen MDMA (Ecstasy) Screen Benzodiazepines Screen Cocaine Screen U Marijuana (THC) Screen SHARAN M-Naveed AJ Screen Pending c-ANCA Pending Proteinase 3 (PR3) Pending p-ANCA Pending Atypical p-ANCA Pending Myeloperoxidase Ab Pending 11/01/17 11/01/17 11/01/17 07:50 07:50 07:50 Schistocytes ESR 71 H Retic Count 0.52 Haptoglobin ABG pH ABG pCO2 at Pt Temp ABG pO2 at Pt Temp ABG HCO3 ABG O2 Sat (Measured) ABG O2 Content ABG Base Excess VBG pH POC VBG pCO2 POC VBG pO2 Mixed VBG HCO3 Sodium Potassium Creatinine Calcium Iron TIBC Iron Saturation Ferritin Total Bilirubin Direct Bilirubin AST ALT LD Total Creatine Kinase CK-MB (CK-2) Troponin I C-Reactive Protein Total Protein Urine Bacteria Urine Osmolality U Random Total Protein Ur Random Sodium Ur Random Potassium Ur Random Chloride Ur Random Urea Nitrogn Urine Creatinine CSF Appearance CSF Color CSF WBC CSF RBC CSF Neutrophils CSF Lymphocytes CSF Eosinophils CSF Basophils CSF Macrophages CSF Plasma Cells CSF Diff Comment CSF Comment CSF Glucose CSF Total Protein Opiates Screen Methadone Screen Barbiturate Screen Phencyclidine Screen Ur Amphetamines Screen MDMA (Ecstasy) Screen Benzodiazepines Screen Cocaine Screen U Marijuana (THC) Screen SHARAN M-Naveed Pending AJ Screen c-ANCA Proteinase 3 (PR3) p-ANCA Atypical p-ANCA Myeloperoxidase Ab 11/01/17 11/01/17 11/01/17 09:55 09:55 10:10 Schistocytes ESR Retic Count Haptoglobin ABG pH ABG pCO2 at Pt Temp ABG pO2 at Pt Temp ABG HCO3 ABG O2 Sat (Measured) ABG O2 Content ABG Base Excess VBG pH POC VBG pCO2 POC VBG pO2 Mixed VBG HCO3 Sodium Potassium Creatinine Calcium Iron TIBC Iron Saturation Ferritin Total Bilirubin Direct Bilirubin AST ALT LD Total Creatine Kinase CK-MB (CK-2) Troponin I C-Reactive Protein Total Protein Urine Bacteria Urine Osmolality 305 U Random Total Protein 275 H Ur Random Sodium 32 Ur Random Potassium 17.5 Ur Random Chloride 17 Ur Random Urea Nitrogn 351 Urine Creatinine 158.0 CSF Appearance CSF Color CSF WBC CSF RBC CSF Neutrophils CSF Lymphocytes CSF Eosinophils CSF Basophils CSF Macrophages CSF Plasma Cells CSF Diff Comment CSF Comment CSF Glucose CSF Total Protein Opiates Screen Negative Methadone Screen Negative Barbiturate Screen Negative Phencyclidine Screen Negative Ur Amphetamines Screen Negative MDMA (Ecstasy) Screen Negative Benzodiazepines Screen Negative Cocaine Screen Negative U Marijuana (THC) Screen Positive SHARAN M-Naveed AJ Screen c-ANCA Proteinase 3 (PR3) p-ANCA Atypical p-ANCA Myeloperoxidase Ab 11/01/17 11/01/17 11/01/17 10:31 12:50 12:59 Schistocytes ESR Retic Count Haptoglobin ABG pH 7.36 ABG pCO2 at Pt Temp 28.9 L ABG pO2 at Pt Temp 86.8 ABG HCO3 16.0 L ABG O2 Sat (Measured) 96.5 ABG O2 Content 18.2 ABG Base Excess -7.7 L VBG pH POC VBG pCO2 POC VBG pO2 Mixed VBG HCO3 Sodium 131 L 134 L Potassium 3.7 3.9 Creatinine 8.7 H* Calcium 6.9 L* 6.8 L* Iron TIBC Iron Saturation Ferritin Total Bilirubin 1.9 H Direct Bilirubin AST 382 H ALT 224 H LD Total Creatine Kinase CK-MB (CK-2) Troponin I C-Reactive Protein Total Protein Urine Bacteria Urine Osmolality U Random Total Protein Ur Random Sodium Ur Random Potassium Ur Random Chloride Ur Random Urea Nitrogn Urine Creatinine CSF Appearance CSF Color CSF WBC CSF RBC CSF Neutrophils CSF Lymphocytes CSF Eosinophils CSF Basophils CSF Macrophages CSF Plasma Cells CSF Diff Comment CSF Comment CSF Glucose CSF Total Protein Opiates Screen Methadone Screen Barbiturate Screen Phencyclidine Screen Ur Amphetamines Screen MDMA (Ecstasy) Screen Benzodiazepines Screen Cocaine Screen U Marijuana (THC) Screen SHARAN M-Naveed AJ Screen c-ANCA Proteinase 3 (PR3) p-ANCA Atypical p-ANCA Myeloperoxidase Ab 11/01/17 12/07/17 12/07/17 18:00 16:30 16:30 Schistocytes ESR Retic Count Haptoglobin ABG pH ABG pCO2 at Pt Temp ABG pO2 at Pt Temp ABG HCO3 ABG O2 Sat (Measured) ABG O2 Content ABG Base Excess VBG pH POC VBG pCO2 POC VBG pO2 Mixed VBG HCO3 Sodium 131 L Potassium 4.2 Creatinine 8.9 H* Calcium 7.3 L Iron 45 TIBC 185 L Iron Saturation 24 Ferritin 533.5 H Total Bilirubin 1.5 H Direct Bilirubin AST 354 H ALT 219 H LD Total Creatine Kinase CK-MB (CK-2) Troponin I C-Reactive Protein Total Protein Urine Bacteria Urine Osmolality U Random Total Protein Ur Random Sodium Ur Random Potassium Ur Random Chloride Ur Random Urea Nitrogn Urine Creatinine CSF Appearance CSF Color CSF WBC CSF RBC CSF Neutrophils CSF Lymphocytes CSF Eosinophils CSF Basophils CSF Macrophages CSF Plasma Cells CSF Diff Comment CSF Comment CSF Glucose CSF Total Protein Opiates Screen Methadone Screen Barbiturate Screen Phencyclidine Screen Ur Amphetamines Screen MDMA (Ecstasy) Screen Benzodiazepines Screen Cocaine Screen U Marijuana (THC) Screen SHARAN M-Naveed AJ Screen c-ANCA Proteinase 3 (PR3) p-ANCA Atypical p-ANCA Myeloperoxidase Ab 12/08/17 12/08/17 12/23/17 06:30 06:30 19:38 Schistocytes ESR Retic Count Haptoglobin ABG pH ABG pCO2 at Pt Temp ABG pO2 at Pt Temp ABG HCO3 ABG O2 Sat (Measured) ABG O2 Content ABG Base Excess VBG pH POC VBG pCO2 POC VBG pO2 Mixed VBG HCO3 Sodium Potassium Creatinine Calcium Iron TIBC Iron Saturation Ferritin Total Bilirubin 0.4 Direct Bilirubin 0.2 D AST ALT LD Total Creatine Kinase 65582 H CK-MB (CK-2) Troponin I C-Reactive Protein 4.0 H Total Protein Urine Bacteria Urine Osmolality U Random Total Protein Ur Random Sodium Ur Random Potassium Ur Random Chloride Ur Random Urea Nitrogn Urine Creatinine CSF Appearance CSF Color CSF WBC CSF RBC CSF Neutrophils CSF Lymphocytes CSF Eosinophils CSF Basophils CSF Macrophages CSF Plasma Cells CSF Diff Comment CSF Comment CSF Glucose CSF Total Protein Opiates Screen Methadone Screen Barbiturate Screen Phencyclidine Screen Ur Amphetamines Screen MDMA (Ecstasy) Screen Benzodiazepines Screen Cocaine Screen U Marijuana (THC) Screen SHARAN M-Naveed AJ Screen c-ANCA Proteinase 3 (PR3) p-ANCA Atypical p-ANCA Myeloperoxidase Ab 12/24/17 12/24/17 07:10 16:15 Schistocytes ESR Retic Count Haptoglobin ABG pH ABG pCO2 at Pt Temp ABG pO2 at Pt Temp ABG HCO3 ABG O2 Sat (Measured) ABG O2 Content ABG Base Excess VBG pH POC VBG pCO2 POC VBG pO2 Mixed VBG HCO3 Sodium Potassium Creatinine Calcium Iron TIBC Iron Saturation Ferritin Total Bilirubin Direct Bilirubin AST ALT LD Total Creatine Kinase 6435 H 5134 H CK-MB (CK-2) Troponin I C-Reactive Protein Total Protein Urine Bacteria Urine Osmolality U Random Total Protein Ur Random Sodium Ur Random Potassium Ur Random Chloride Ur Random Urea Nitrogn Urine Creatinine CSF Appearance CSF Color CSF WBC CSF RBC CSF Neutrophils CSF Lymphocytes CSF Eosinophils CSF Basophils CSF Macrophages CSF Plasma Cells CSF Diff Comment CSF Comment CSF Glucose CSF Total Protein Opiates Screen Methadone Screen Barbiturate Screen Phencyclidine Screen Ur Amphetamines Screen MDMA (Ecstasy) Screen Benzodiazepines Screen Cocaine Screen U Marijuana (THC) Screen SHARAN M-Naveed AJ Screen c-ANCA Proteinase 3 (PR3) p-ANCA Atypical p-ANCA Myeloperoxidase Ab ASSESSMENT AND PLAN: 32 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 Pt presented to [facility] after being informed by his Infectious Disease physician of a severely elevated CPK level. # Acute Rhabdomyolysis due to Daptomycin, with CPK level of 11K on admission , discontinued Daptomycin ,Id will continue with Vancomycin. On IVF at 200cc/hr. will repeat the level at 4p, as per nephro if the level is below 5k , he can discharged on Vancomycin. Also weekly labs CMp, cbc, CPK level, electrolytes was ordered. will continue IVF till 11pm prior to discharge home today. will get one dose of Vancomycin tonight and tomorrow, his meds will be delivered by the infusion center. # MRSA Bacteremia s/p removal of Permacath was on Dapto, will be switched to Vancomycin day 11 more days left to complete the treatment. patient will be getting 1gm vanco 2x per day. patient has a picc line. # Right Upper extremity DVT ; repeat duplex positive for persistant DVT will continue Lovenox since is still there. Will continue with 120mg sq Lovenox once per day. #Anemia H/H 8.4/25.8 stable continue to monitor # Acute Transaminitis will trend it down # Recent legionella PNA and sepsis. history of legionella- convalescent serology positive; was here 11/01 to 11/15 DVT ppx: on Lovenox 120 mg SQ Daily [facility] # [phone] [facility] on [facility] # [phone]
--- NOTE | 2017-12-24 15:14 | CON.ID ---
Consult Consult Specialty:: infectious disease Referred by:: hospitalist Reason for Consultation:: mrsa bacteremia - History of Present Illness Chief Complaint: muscle aches History of Present Illness: I received a call from the infusion company with cpkof [phone] and called roxanna- he reported muscle aches, and discomfort during the daptomycin infusion (525 mg daily) I asked him to come to ED [facility]-and stop the daptomycin he was in [place] and came later yesterday evening no other ocmplaints he got fluids overnight and is feeling better received vancomycin overnight no fevers was seen in Ed on 12/21 with similar complaints and cpk was [phone]! he has not followed up with anyone after discharge home from the hospital reports he couldn't find the numbers! 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) Infectious Disease: Yes: MRSA (permacath infection - ANDERS negative) Additional Medical History: right IJ blood clot - Past Surgical History Additional Surgical History: permacath- removed - Alcohol/Substance Use Hx Alcohol Use: No History of Substance Use: reports: Marijuana - Smoking History Smoking history: Current every day smoker Have you smoked in the past 12 months: Yes Aproximately how many cigarettes per day: 7 If you are a former smoker, when did you quit?: 11/13 - Social History Usual Living Arrangement: Alone ADL: Independent Occupation: [employer] Place of : [facility] History of Recent Travel: No Home Medications - Allergies Allergies/Adverse Reactions: Allergies Allergy/AdvReac Type Severity Reaction Status Date / Time No Known Allergies Allergy Verified 12/21/17 16:38 - Home Medications Home Medications: Ambulatory Orders Daptomycin 500 mg IV DAILY 21 Days #28 vial 12/14/17 Enoxaparin Sodium [Lovenox] 120 mg SQ DAILY #30 syringe 12/14/17 Acetaminophen [Tylenol -] 500 mg PO Q6H #100 tablet 12/21/17 Vancomycin 1,000 mg IV Q12H 11 Days #22 vial 12/24/17 Family Disease History - Family Disease History Family Disease History: Other: Father (Alive: healthy), Mother (Alive: healthy) , Sister (1, alive: ovarian cancer), Daughter (1, healthy) Review of Systems - Review of Systems Constitutional: reports: No Symptoms Eyes: reports: No Symptoms HENT: reports: No Symptoms Neck: reports: No Symptoms Cardiovascular: reports: No Symptoms Respiratory: reports: No Symptoms Gastrointestinal: reports: No Symptoms Musculoskeletal: reports: Muscle Pain Physical Exam Vital Signs: Vital Signs Temperature 97.4 F L 12/24/17 06:00 Pulse Rate 88 12/24/17 06:00 Respiratory Rate 20 12/24/17 06:00 Blood Pressure 116/62 12/24/17 06:00 O2 Sat by Pulse Oximetry (%) 99 12/24/17 05:22 Constitutional: Yes: Well Nourished, No Distress Eyes: Yes: Conjunctiva Clear HENT: Yes: Atraumatic, Normocephalic Neck: Yes: Supple Cardiovascular: Yes: Regular Rate and Rhythm Respiratory: Yes: Regular, CTA Bilaterally Gastrointestinal: Yes: Normal Bowel Sounds ...Rectal Exam: Yes: Deferred Extremities: Yes: WNL Edema: No Wound/Incision: Yes: Other (picc line site no erythema or tenderness) Psychiatric: Yes: Alert, Oriented Labs: CBC, BMP 12/24/17 07:10 12/24/17 07:10 Imaging - Results Chest X-ray: Report Reviewed, Image Reviewed Problem List - Problems (1) Bacteremia due to methicillin resistant Staphylococcus aureus Code(s): R78.81 - BACTEREMIA (2) Elevated CPK Code(s): R74.8 - ABNORMAL LEVELS OF OTHER SERUM ENZYMES (3) Thrombus Code(s): I82.90 - ACUTE EMBOLISM AND THROMBOSIS OF UNSPECIFIED VEIN Assessment/Plan rhabdomyolysis secondary to daptomycin-ivf, renal evaluation d/c daptomycin will complete treatment with vancomycin I spoke with [employer] - multiple times today and yesterday- labs and meds have been arranged they will call me with his labs-over 45 minutes spent arranging his f/u care he needs outpt followup arranged with his PMD- can come to our office for f/u for the bacteremia [phone]
--- NOTE | 2017-12-24 15:37 | DS ---
Physical Exam: SUBJECTIVE: Patient seen and examined at bedside this morning. He denies upper or lower extremity weakness, or myalgias today. Denies fevers, chills, shortness of breath, chest pain, palpitations, abdominal pain, nausea, vomiting , diarrhea, constipation. OBJECTIVE: Vital Signs Period Temp Pulse Resp BP Sys/Dangelo Pulse Ox Last 24 Hr 97.4 F-98.7 F 74-107 17-20 116-140/61-81 99-100 PHYSICAL EXAM GENERAL: The patient is awake, alert, and fully oriented, in no acute distress. Resting comfortably in exam bed. HEAD: Normal with no signs of trauma. EYES: PERRLA, extraocular movements intact without nystagmus. Sclera anicteric, conjunctiva non-injected b/l. ENT: Oropharynx clear without exudates, erythema, or lesions. Moist mucous membranes. NECK: Trachea midline, full range of motion. Supple without lymphadenopathy. LUNGS: Good inspiratory effort. Breath sounds equal, clear to auscultation bilaterally. No wheezes, no crackles. No accessory muscle use. HEART: Regular rate and rhythm. S1, S2 auscultated without murmur, rub or gallop. ABDOMEN: Soft, nontender, nondistended. hypoactive bowel sounds x4 quadrants. No guarding, no rebound tenderness. No hepatosplenomegaly. EXTREMITIES: 2+ pulses radial and dorsalis pedis b/l. Warm, well-perfused, no lower extremity calf tenderness, or edema b/l. NEUROLOGICAL: Cranial nerves II through XII grossly intact. Normal speech. PSYCH: Mood and affect appropriate to my encounter this morning. SKIN: Warm, dry. Patient has right-sided subclavian venous catheter. Non- erythematous at insertion site. LABS Laboratory Results - last 24 hr 12/23/17 12/23/17 12/23/17 19:38 19:38 20:19 WBC 6.0 RBC 2.98 L Hgb 8.8 L Hct 26.6 L MCV 89.4 MCH 29.6 MCHC 33.1 RDW 15.0 Plt Count 472 H MPV 6.5 L Absolute Neuts (auto) 2.5 Neutrophils % 42.5 L Lymphocytes % 42.1 H Monocytes % 6.2 Eosinophils % 8.0 H Basophils % 1.2 Nucleated RBC % 0 PT with INR INR PTT (Actin FS) Sodium 145 Potassium 3.5 Chloride 109 H Carbon Dioxide 25 Anion Gap 11 BUN 8 Creatinine 1.2 Creat Clearance w eGFR > 60 Random Glucose 74 Calcium 9.2 Phosphorus Magnesium Total Bilirubin 0.2 Direct Bilirubin AST 161 H ALT 71 H Alkaline Phosphatase 121 H Creatine Kinase 45951 H Creatine Kinase Index 0.0 CK-MB (CK-2) 2.0 Total Protein 6.7 Albumin 3.0 L Urine Color Ltyellow Urine Appearance Clear Urine pH 7.0 Ur Specific [place] 1.010 Urine Protein Negative Urine Glucose (UA) Negative Urine Ketones Negative Urine Blood Negative Urine Nitrite Negative Urine Bilirubin Negative Urine Urobilinogen Negative Ur Leukocyte Esterase Negative 12/24/17 12/24/17 12/24/17 07:10 07:10 07:10 WBC 4.7 RBC 2.89 L Hgb 8.4 L Hct 25.8 L MCV 89.1 MCH 29.1 MCHC 32.6 RDW 15.1 Plt Count 381 MPV 6.1 L Absolute Neuts (auto) 1.9 Neutrophils % 41.4 L Lymphocytes % 42.8 H Monocytes % 6.1 Eosinophils % 8.7 H Basophils % 1.0 Nucleated RBC % 0 PT with INR 13.30 H INR 1.13 H PTT (Actin FS) 39.1 H Sodium 146 H Potassium 3.7 Chloride 113 H Carbon Dioxide 26 Anion Gap 7 L BUN 6 L Creatinine 1.0 Creat Clearance w eGFR > 60 Random Glucose 81 Calcium 8.4 L Phosphorus 4.2 Magnesium 1.7 L Total Bilirubin 0.2 Direct Bilirubin < 0.2 AST 116 H ALT 59 Alkaline Phosphatase 108 Creatine Kinase 6435 H Creatine Kinase Index 0.0 CK-MB (CK-2) 1.2 Total Protein 5.8 L Albumin 2.6 L Urine Color Urine Appearance Urine pH Ur Specific [place] Urine Protein Urine Glucose (UA) Urine Ketones Urine Blood Urine Nitrite Urine Bilirubin Urine Urobilinogen Ur Leukocyte Esterase 12/24/17 12/24/17 12/24/17 07:10 07:10 07:10 WBC RBC Hgb Hct MCV MCH MCHC RDW Plt Count MPV Absolute Neuts (auto) Neutrophils % Lymphocytes % Monocytes % Eosinophils % Basophils % Nucleated RBC % PT with INR INR PTT (Actin FS) Sodium Potassium Chloride Carbon Dioxide Anion Gap BUN Creatinine Creat Clearance w eGFR Random Glucose Calcium Phosphorus Magnesium Total Bilirubin Cancelled Direct Bilirubin Cancelled AST Cancelled ALT Cancelled Alkaline Phosphatase Cancelled Creatine Kinase Cancelled Creatine Kinase Index CK-MB (CK-2) Cancelled Total Protein Cancelled Albumin Cancelled Urine Color Urine Appearance Urine pH Ur Specific [place] Urine Protein Urine Glucose (UA) Urine Ketones Urine Blood Urine Nitrite Urine Bilirubin Urine Urobilinogen Ur Leukocyte Esterase HOSPITAL COURSE: Date of Admission:12/24/17 Date of Discharge: 12/24/17 Patient is a 32 year old male with history of MRSA bacteremia, internal jugular thrombosis, treated with Daptomycin, presented to the ED after phone call of elevated CPK of 11,159. IV fluids were started. Daptomycin was switched to Vancomycin 1 gram BID with ID consult. Duplex US showed persistent thrombus in right internal jugular vein since 12/13/2017. Nephrology consult discussed safe to discharge once CPK less than 5000. CPK lowered upon repeat labs, patient receive second dose of vancomycin. Discharged with instruction to follow up with Dr. Cummings, Dr. Lynne, Dr. Garcia, and Dr. Edmondson within one week of discharge. Discussed instructions verbally with patient. Discharged to continue 11 more days of Vancomycin 1 gram BID infusion to complete 21 day course. Lovenox 120mg daily for 20 more days to complete 30 days total course. Minutes to complete discharge: 35 Discharge Summary Reason For Visit: BACTEREMIA ASSOCIATED EITH INTRAVASCULAR LINE Current Active Problems Bacteremia associated with intravascular line (Acute) Elevated CPK (Acute) Condition: Improved - Instructions Diet, Activity, Other Instructions: You were admitted with an elevated CPK level of 11,159. We treated you with intravenous fluids. We are changing your antibiotic. You will STOP taking Daptomycin. BEGIN taking Vancomycin IV infusion every 12 hours, for the next 11 days to complete the total 21 day antibiotic course. You will continue taking Lovenox 120mg daily for the blood clot within your neck for the next 20 days. Discuss with the music researcher Dr. Lynne at your appointment. It is important that you follow up with the following physicians: Infectious disease (Dr. Garcia) within one week of discharge to discuss the infection for which you are taking antibiotics. Primary care: (Dr. Cummings) within one week of discharge. At that appointment you will need the following blood work done: CBC with differential, CMP, magnesium, phosphorus levels, PT/INR. Hematology (Dr. Lynne) within one week of discharge. At that appointment you will discuss the blood clot within the right neck, and the Lovenox. Nephrology (Dr. Edmondson) within one week of discharge. Please return to the nearest emergency department if you experience any fevers, chills, shortness of breath, chest pain, palpitations, muscle pain, weakness, darker colored urine. Referrals: Alyssa Cummings RES [Resident] - 12/30/17 ([facility] [place] [facility]. Make appointment with Dr. Cummings for afternoon 1pm-4pm [phone]) Serina Garcia MD [Staff Physician] - 1 Week Juan Lynne MD [Staff Physician] - 1 Week Rojas Edmondson MD [Staff Physician] - 1 Week Disposition: HOME - Home Medications Comprehensive Discharge Medication List: Ambulatory Orders Daptomycin 500 mg IV DAILY 21 Days #28 vial 12/14/17 Enoxaparin Sodium [Lovenox] 120 mg SQ DAILY #30 syringe 12/14/17 Acetaminophen [Tylenol -] 500 mg PO Q6H #100 tablet 12/21/17 Vancomycin 1,000 mg IV Q12H 11 Days #22 vial 12/24/17 This patient is new to me today: Yes Date on this admission: 12/24/17 Emergency Visit: Yes ED Registration Date: 12/24/17 Care time: The patient presented to the Emergency Department on the above date and was hospitalized for further evaluation of their emergent condition. Critical Care patient: No - Discharge Referral Referred to [facility] No
[2017-12-24 15:39] VITALS: TEMP 98.2
[2017-12-24] MEDS ORDERED: VANCOMYCIN 1 GM PREMIX - 1 GM/200 ML BAG IVPB ONE (21:00)
[2017-12-24 22:07] VITALS: BP 122/66; PULSE 90
== END 2017-12-24 22:36 | disposition home or self-care (01) ==
LOC: JER 18:26 → JERBED 12-24 00:13 → J5S 12-24 04:01
PROVIDERS: ADMIT Internal Medicine; ATTEND Internal Medicine
PROC: 3E03329 Introduction of Other Anti-infective into Peripheral Vein, Percutaneous Approach (ICD-10-PCS; principal; 2017-12-24)
PROC: 3E0337Z Introduction of Electrolytic and Water Balance Substance into Peripheral Vein, Percutaneous Approach (ICD-10-PCS; 2017-12-24)
PROC: 3E013GC Introduction of Other Therapeutic Substance into Subcutaneous Tissue, Percutaneous Approach (ICD-10-PCS; 2017-12-24)
DX: T80.211A Bloodstream infection due to central venous catheter, initial encounter (principal); D74.8 Other methemoglobinemias; Y71.8 Miscellaneous cardiovascular devices associated with adverse incidents, not elsewhere classified; E83.42 Hypomagnesemia; M62.82 Rhabdomyolysis; Z86.14 Personal history of Methicillin resistant Staphylococcus aureus infection; D64.9 Anemia, unspecified; R74.0 Nonspecific elevation of levels of transaminase and lactic acid dehydrogenase [LDH]; I82.621 Acute embolism and thrombosis of deep veins of right upper extremity; Z87.01 Personal history of pneumonia (recurrent); F17.210 Nicotine dependence, cigarettes, uncomplicated
CPT/HCPCS: 36415; 71046-TC-FY; 80048; 80053; 80076; 81003; 82550; 82553; 83735; 83874; 84100; 85025; 85610; 85730; 93005; 93010; 93971; 96361; 96365; 96367; 96368; 96372; 99284-25; G0378; J7030

== ENCOUNTER 2017-12-31 18:45 | Emergency (ER) | payer OTHER ==
[2017-12-31 18:54] VITALS: BP 140/79; PULSE 135; TEMP 98.7; BMI 25.7
--- NOTE | 2017-12-31 18:56 | PDOC ---
Rapid Medical Evaluation Chief Complaint: Bleeding from PICC Line Time Seen by Provider: 12/31/17 18:54 Medical Evaluation: Allergies Allergy/AdvReac Type Severity Reaction Status Date / Time No Known Allergies Allergy Verified 12/31/17 18:50 Vital Signs Temp Pulse Resp BP Pulse Ox 98.7 F 135 H 20 140/79 98 12/31/17 18:50 10 18:50 10 18:50 12/31/17 18:50 12/31/17 18:50 10 18:54 I have performed a brief in-person evaluation of this patient Patient presents with a chief complaint of bleeding from PICC line Pertinent physical exam findings: NAD, unlabored breathing, tachycardia, says that he is nervous and has not drank a lot of water today I have ordered the following: Repeat vital signs Patient will proceed to the ED for further medical evaluation Discharge Disposition - Diagnosis Bleeding from PICC line - Referrals - Patient Instructions - Post Discharge Activity
--- NOTE | 2017-12-31 20:31 | PDOC ---
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 He also noticed it this morning when trying to run his vanco and it happens within the first ten minutes. He hasn't completed his infusions due to return of blood in the line which wasn't occurring previously. He denies any pain at site of PICC line or any edema or swelling after infusion. He denies N/V/F/C, SOB, abd pain, edema, swelling in arms, and has full ROM in arms. Past History - Past Medical History Allergies/Adverse Reactions: Allergies Allergy/AdvReac Type Severity Reaction Status Date / Time No Known Allergies Allergy Verified 12/31/17 18:50 Home Medications: Ambulatory Orders Daptomycin 500 mg IV DAILY 21 Days #28 vial 12/14/17 Enoxaparin Sodium [Lovenox] 120 mg SQ DAILY #30 syringe 12/14/17 Acetaminophen [Tylenol -] 500 mg PO Q6H #100 tablet 12/21/17 Vancomycin 1,000 mg IV Q12H 11 Days #22 vial 12/24/17 COPD: No DVT: No Other medical history: kidney failure - Immunization History Immunization Up to Date: No - Suicide/Smoking/Psychosocial Hx Smoking History: Current every day smoker Have you smoked in the past 12 months: Yes Number of Cigarettes Smoked Daily: 7 If you are a former smoker, when did you quit?: 11/13 Information on smoking cessation initiated: No Hx Alcohol Use: No Drug/Substance Use Hx: No Substance Use Type: None Hx Substance Use Treatment: No Review of Systems - Review of Systems Able to Perform ROS?: Yes Constitutional: No: Chills, Fever Respiratory: No: Shortness of Breath Cardiac (ROS): No: Chest Pain, Edema ABD/GI: No: Nausea, Vomiting : No: Dysuria Musculoskeletal: No: Joint Pain, Muscle Pain Integumentary: No: Erythema *Physical Exam - Vital Signs Last Vital Signs Temp Pulse Resp BP Pulse Ox 98.7 F 135 H 20 140/79 98 12/31/17 18:50 12/31/17 18:50 12/31/17 18:50 12/31/17 18:50 12/31/17 18:50 - Physical Exam General Appearance: Yes: Nourished, Appropriately Dressed. No: Apparent Distress HEENT: positive: EOMI, Normal Voice Neck: positive: Supple Respiratory/Chest: positive: Lungs Clear, Normal Breath Sounds. negative: Respiratory Distress, Accessory Muscle Use Cardiovascular: positive: Regular Rate, S1, S2, Tachycardia. negative: Murmur Gastrointestinal/Abdominal: positive: Normal Bowel Sounds, Soft. negative: Tender Extremity: positive: Other (R arm PICC line in place with no signs of infection at insertion site. No blood or pus drainage at insertion site. No swelling or erythema no b/l UE. Scabs under PICC line insertion site that are healing and not actively draining any fluid. RUE nontender to palpation.) Medical Decision Making - Medical Decision Making Pt is still due for his vancomycin tonight. Will check PICC line with saline flush. Will also run 1 L NS at this time to check line and for tachycardia. 12/31/17 21:17 PICC line checked with saline flush. Good blood return and saline flushed with no issues. 12/31/17 22:20 NS 1L bolus infusing without issue. No blood in line seen. 12/31/17 23:01 NS continues to infuse without issue. HR 90 bpm at this time. 12/31/17 23:31 Pt to be discharged home. To f/u with PCP in 1 week. Pt to return to ER if worsening of current symptoms noted or if pt develops new concerning symptoms. *DC/Admit/Observation/Transfer Diagnosis at time of Disposition: Bleeding from PICC line - Discharge Dispostion Disposition: HOME Condition at time of disposition: Stable Decision to Admit order: No - Referrals - Patient Instructions Printed Discharge Instructions: Peripherally Inserted Central Catheter Additional Instructions: Follow up with your primary care doctor in 1 week. If your symptoms worsen or if you develop new concerning symptoms please come back to the ER. - Post Discharge Activity
[2017-12-31] MEDS ORDERED: SODIUM CHLORIDE 1,000 ML IV STA (21:08)
--- NOTE | 2017-12-31 23:01 | PDOC ---
Attending Attestation - Resident Resident Name: Jonathan Vallecillo - ED Attending Attestation I have performed the following: I have examined & evaluated the patient, The case was reviewed & discussed with the resident, I agree w/resident's findings & plan - HPI HPI: 12/31/17 23:07 The patient is a 32 year old male, with a significant past medical history of recent hospitalization for legionella PNA (w/subsequent SALBADOR requiring dialysis ( no longer on dialysis)), MRSA bacteremia (from catheter now on Vancomycin via PICC line), RIJ thrombosis (on Lovenox), who presents to the emergency department with, blood return on his PICC line. As per patient, his symptoms onset last night. He notes attempting to infuse his Vancomycin this morning when the blood began to flow up the line once again. He denies any recent fevers, chills, headache or dizziness. He denies any recent nausea, vomit, diarrhea or constipation. He denies any recent chest pain or shortness of breath. Allergies: NKA Attestations - Attestations 12/31/17 23:08 Documentation prepared by Bud Rodriguez, acting as medical education coordinator for Cristela Contreras MD.
== END 2018-01-01 00:45 | disposition home or self-care (01) ==
LOC: JER 18:45
PROC: 3E0337Z Introduction of Electrolytic and Water Balance Substance into Peripheral Vein, Percutaneous Approach (ICD-10-PCS; principal; 2017-12-31)
PROC: 3C1ZX8Z Irrigation of Indwelling Device using Irrigating Substance, External Approach (ICD-10-PCS; 2017-12-31)
DX: T82.838A Hemorrhage due to vascular prosthetic devices, implants and grafts, initial encounter (principal); T82.7XXA Infection and inflammatory reaction due to other cardiac and vascular devices, implants and grafts, initial encounter; R78.81 Bacteremia; I82.C11 Acute embolism and thrombosis of right internal jugular vein; R74.8 Abnormal levels of other serum enzymes; Z79.2 Long term (current) use of antibiotics; Z79.01 Long term (current) use of anticoagulants
CPT/HCPCS: 96360; 99282-25; J7030